=== PATIENT | female | born 1955 | race Caucasian/White ===

== ENCOUNTER 2020-06-27 22:49 | Emergency (ER) | payer MEDICARE, SELFPAY ==
[2020-06-27 22:52] VITALS: BP 142/76; PULSE 102; RESP 34; TEMP 36.9; O2SAT 96; BMI 20.9
== END 2020-06-28 00:01 | disposition left against medical advice (07) ==
PROVIDERS: Emergency Provider Emergency Medicine; PCP Internal Medicine Geriatric Medicine
DX: R06.02 Shortness of breath (principal); R00.2 Palpitations
CPT/HCPCS: 99281; 99282

== ENCOUNTER 2020-10-04 22:30 | Emergency (ER) | payer MEDICARE, SELFPAY ==
--- NOTE | ~2020-10-04 | CT_ITS ---
EXAMINATION: CT ABDOMEN AND PELVIS WITH CONTRAST CLINICAL INFORMATION: Lower abdominal/suprapubic pain COMPARISON: 06/30/2019 TECHNIQUE: Multidetector volumetric images were obtained from the superior aspect of the liver through the pubic symphysis following administration 85 mL of Omnipaque 350 intravenous contrast. Sagittal and coronal reformatted images were obtained on the technologist's workstation. Oral contrast: No This CT examination was performed using dose optimization techniques as appropriate, variously including the following: *Automated exposure control *Adjustment of mA and/or kV according to patient size (this includes techniques or standardized protocols for targeted exams where dose is matched to indication/reason for exam; i.e. extremities or head) *Use of iterative reconstruction technique DLP: 486 mGy-cm FINDINGS: LUNG BASES: The visualized lung bases demonstrate emphysema. LIVER, GALLBLADDER, AND BILIARY TREE: The liver is normal in size, shape, and attenuation. Tiny hypodensity in the lateral right lobe favors a cyst. No biliary ductal dilatation is present. Numerous gallstones are present. PANCREAS: Partial fatty atrophy noted. SPLEEN: Unremarkable. ADRENAL GLANDS: Unremarkable. KIDNEYS AND URETERS: The kidneys are normal in size, shape, and attenuation. Small hypodensity in the upper right kidney favors a cyst. No hydronephrosis, hydroureter, or calculi seen. No perinephric stranding. BLADDER: Unremarkable. GASTROINTESTINAL TRACT: There is colonic diverticulosis without diverticulitis. No evidence of bowel obstruction. Small bowel suture line noted in the mid abdomen. No free fluid or free air is seen. ABDOMINAL WALL: No significant hernia is appreciated. LYMPH NODES: Normal. VASCULAR: Scattered atherosclerotic calcifications are present. PELVIC VISCERA: Unremarkable. OSSEOUS STRUCTURES: No acute findings. CT/CT abdomen pelvis w con IMPRESSION: 1. Cholelithiasis. If there is clinical concern for cholecystitis, this would be better assessed with ultrasound. 2. Colonic diverticulosis without diverticulitis.
[2020-10-04 22:40] VITALS: BP 148/60; PULSE 86; O2SAT 92
[2020-10-04 22:41] VITALS: BP 138/59; PULSE 93; RESP 22; TEMP 36.8; O2SAT 93; BMI 25.4
--- NOTE | 2020-10-04 23:54 | ED_ITS ---
HPI - Abdominal Pain General Chief Complaint: Abdominal Pain Stated Complaint: Abd Pain Time Seen by Provider: 10/04/20 23:54 Source: patient Mode of arrival: EMS History of Present Illness HPI narrative: 65-year-old female with history of COPD presents via ambulance for right lower abdominal pain that radiates towards the midline that is sharp/throbbing in nature and has led to painful urination for 4 days. She denies any associated fevers but states she has had some chills as well as nausea but denies any vomiting or diarrhea. Related Data Home Medications Medication Instructions Recorded Confirmed albuterol sulfate 1 vial INHALATION 6XD 10/04/20 10/04/20 [id number]-[id number]-yeuyvjkt 1 - 2 tab PO Q12H PRN 10/04/20 10/04/20 50 mg-325 mg-40 mg tablet diltiazem HCl 60 mg 2 cap PO BID 10/04/20 10/04/20 capsule,extended release 12 hr fluticasone 250 mcg-salmeterol 50 1 puff INHALATION Q12H 10/04/20 10/04/20 mcg/dose blistr powdr for inhalation (Wixela Inhub) ipratropium bromide 17 2 puff INHALATION QID 10/04/20 10/04/20 mcg/actuation HFA aerosol inhaler (Atrovent HFA) lorazepam 2 mg tablet 1 tab PO QID PRN 10/04/20 10/04/20 prednisone 50 mg tablet 1 tab PO DAILY 10/04/20 10/04/20 Allergies Allergy/AdvReac Type Severity Reaction Status Date / Time morphine [MORPHINE] Allergy Severe HIVES, Verified 10/04/20 22:39 high temp, nausea tetracycline [TETRACYCLINE] Allergy Severe VOMITING Verified 10/04/20 22:39 tramadol [TRAMADOL] Allergy Severe SWEATING, Verified 10/04/20 22:39 VOMITING, vomiting amoxicillin [From AUGMENTIN] AdvReac Severe CONSTIPATIO Verified 10/04/20 22:39 N clavulanic acid AdvReac Severe CONSTIPATIO Verified 10/04/20 22:39 [From AUGMENTIN] N codeine [CODEINE] AdvReac Severe NAUSEA Verified 10/04/20 22:39 levofloxacin [From LEVAQUIN] AdvReac Severe CONSTIPATIO Verified 10/04/20 22:39 N Sulfa(Sulfonamide Allergy Unknown Unknown Uncoded 10/04/20 22:39 Antibiotics) Review of Systems Review of Systems Pertinent positives and negatives as stated in HPI 10 point review of systems otherwise negative. Physical Exam Vital Signs: Vital Signs: Last Vital Signs Temp 98.3 F 10/04/20 22:41 Pulse 93 10/04/20 22:41 Resp 22 H 10/04/20 22:41 BP 138/59 L 10/04/20 22:41 Pulse Ox 93 10/04/20 22:41 Oxygen Flow Rate 4 10/04/20 22:41 Body Mass Index 25.4 VITAL SIGNS: Reviewed. GENERAL: Well developed, well nourished, in no acute distress. HEAD: Normocephalic/atraumatic EYES: PERRLA, EOMI NOSE: Nares patent bilateral, nasal cannula in place OROPHARYNX: no oral lesions noted, posterior pharynx clear LUNGS: Few, scattered rhonchi, good inspiratory effort, mild tachypnea SpO2<93> on 3L nasal cannula at baseline CARDIOVASCULAR: Regular rate and rhythm without noted murmurs, no JVD or lower extremity edema. ABDOMEN: Soft, non-tender, non-distended with bowel sounds. SKIN: Inspection of the skin reveals no rashes NEUROLOGIC: Alert and oriented x 4. Course Course Course Narrative: 65-year-old female with history and clinical presentation suggestive of UTI, renal colic, or hernia. Review of all investigations negative for acute findings to better explain patient's discomfort other than noted stool load that is closely associated with the location of the bladder which may be contributing to patient's symptoms. She will be encouraged to take MiraLax and follow-up with her primary care provider. MDM - Abdominal Pain Lab Data Result diagrams: 10/04/20 23:50 10/04/20 23:50 Labs: Lab Results 10/04/20 10/04/20 10/04/20 Range/Units 23:50 23:50 23:50 WBC 9.6 (4.8-10.8) X10*3/uL RBC 4.19 L (4.20-5.50) X10*6/uL Hgb 12.1 (12.0-16.0) g/dl Hct 38.1 (37-47) % MCV 90.9 (80-98) fL MCH 28.9 (27.0-33.0) pg MCHC 31.8 (31.0-35.0) g/dl RDW 13.4 (11.0-16.0) % Plt Count 296 (160-400) X10*3/uL MPV 8.9 L (9.4-12.3) fL Immature Gran % (Auto) 0.3 (0.0-0.4) % Neut % (Auto) 71.7 (45-73) % Lymph % (Auto) 19.4 L (20-40) % [place] % (Auto) 6.4 (2-11) % Eos % (Auto) 1.7 (0-4) % Baso % (Auto) 0.5 (0-2) % Lymph # (Auto) 1.9 (1.2-4.9) X10*3/uL [place] # (Auto) 0.6 (0.1-1.2) X10*3/uL Eos # (Auto) 0.2 (0.0-0.4) X10*3/uL Baso # (Auto) 0.1 (0.0-0.2) X10*3/uL Abs Immat Gran (auto) 0.03 (0.00-0.03) X10*3/uL Absolute Neuts (auto) 6.9 (2.0-8.3) X10*3/uL Absolute Nucleated RBC 0.000 (0.0-0.012) X10*3/uL Nucleated RBC % (auto) 0.0 (0.0-0.2) /100WBC Sodium 140 (135-145) mmol/L Potassium 4.1 (3.3-5.1) mmol/L Chloride 97 (96-108) mmol/L Carbon Dioxide 34 H (22-29) mmol/L Anion Gap 13 (12-20) BUN 12 (9-16) mg/dL Creatinine 0.69 (0.5-1.4) mg/dL Estim Creat Clear Calc 60.7 Estimated GFR > 60 Random Glucose 99 (60-115) mg/dL Calcium 10.1 (8.4-10.2) mg/dL Total Bilirubin 0.2 (0.0-1.0) mg/dL AST 15 (5-31) U/L ALT 22 (0-31) U/L Alkaline Phosphatase 74 (39-117) U/L Total Protein 7.6 (6.5-8.0) g/dL Albumin 4.3 (3.5-5.0) g/dL Lipase 10 (8-78) U/L Urine Color STRAW Urine Appearance CLEAR Urine pH 6.0 (5.0-8.0) Ur Specific [place] <= 1.005 (1.005-1.025) Urine Protein NEG (NEG-TRACE) MG/DL Urine Glucose (UA) NEG (NEG) MG/DL Urine Ketones NEG (NEG) MG/DL Urine Blood NEG (NEG) Urine Nitrite NEG (NEG) Ur Leukocyte Esterase NEG (NEG) Discharge Plan Discharge Clinical Impression: Abdominal discomfort, Constipation Patient Disposition: Home, Self-Care Instructions: Constipation (ED), Fleet Enema (ED), High Fiber Diet (ED), Polyethylene Glycol 3350 (By mouth) Additional Instructions: 1. Resume all home medications as prescribed. 2. Recommend ifak-gkt-vbyaiuf MiraLax, daily, to facilitate soft stool. 3. Follow-up with your primary care provider in the next 2-3 days for re- evaluation and further outpatient management. Return to the ER for acute worsening of symptoms. Prescriptions: No Action fluticasone propion-salmeterol [Wixela Inhub] 250-50 mcg/dose blister with device 1 puff inhalation Q12H RF: 0 albuterol sulfate 2.5 mg /3 mL (0.083 %) solution for nebulization 1 vial inhalation 6XD RF: 0 dczneqnelp-hvwuhhgewlgao-twtt 50-325-40 mg tablet 1 - 2 tab PO Q12H PRN (Reason: Headache) RF: 0 lorazepam 2 mg tablet 1 tab PO QID PRN (Reason: anxiety) RF: 0 prednisone 50 mg tablet 1 tab PO DAILY RF: 0 diltiazem HCl 60 mg capsule,extended release 12 hr 2 cap PO BID RF: 0 Atrovent HFA 17 mcg/actuation HFA aerosol inhaler 2 puff inhalation QID RF: 0 Referrals: Name,MD Mickey [Primary Care Provider] - 2 days PMF Past Medical History Source: nursing notes reviewed Medical History Anxiety Asthma Bronchitis COPD (chronic obstructive pulmonary disease) Emphysema lung Hypertension Social History Social History Alcohol intake: current Alcohol intake frequency: 0-2 drinks per day Patient Tobacco Use Status: Current everyday Tobacco user Smoked in Last 30 Days: Yes Use of substances other than those prescribed or required for medical reasons: Refusing to respond Advance Directives: No Advance Directives Information Provided: No Patient : No
[2020-10-04 23:55] LABS: MANUAL DIFF FLAG NO
[2020-10-04 23:57] LABS: Basophils Absolute Auto 0.1 X10*3/uL (0.0-0.2); Basophils Percent Auto 0.5 % (0-2); Eosinophils Absolute Auto 0.2 X10*3/uL (0.0-0.4); Eosinophils Percent Auto 1.7 % (0-4); Hematocrit 38.1 % (37-47); Hemoglobin 12.1 g/dl (12.0-16.0); Imm Gran Abs Auto 0.03 X10*3/uL (0.00-0.03); Imm Gran Pct Auto 0.3 % (0.0-0.4); Lymphocytes Absolute Auto 1.9 X10*3/uL (1.2-4.9); Lymphocytes Percent Auto 19.4 % (20-40); Mean Corpuscular HGB Conc 31.8 g/dl (31.0-35.0); Mean Corpuscular Hemoglobin 28.9 pg (27.0-33.0); Mean Corpuscular Volume 90.9 fL (80-98); Mean Platelet Volume 8.9 fL (9.4-12.3); Monocytes Absolute Auto 0.6 X10*3/uL (0.1-1.2); Monocytes Percent Auto 6.4 % (2-11); Neutrophils Absolute Auto 6.9 X10*3/uL (2.0-8.3); Neutrophils Percent Auto 71.7 % (45-73); Platelet Count 296 X10*3/uL (160-400); Red Blood Count 4.19 X10*6/uL (4.20-5.50); Red Cell Distribution Width 13.4 % (11.0-16.0); White Blood Count 9.6 X10*3/uL (4.8-10.8)
[2020-10-04 23:58] LABS: Glucose Urine UA NEG (NEG); Leukocyte Esterase Urine NEG (NEG); Nitrite Urine NEG (NEG); Specific Gravity - Urine <= 1.005 (1.005-1.025); Urine Blood NEG (NEG); Urine Ketones NEG (NEG); Urine Protein NEG (NEG-TRACE)
[2020-10-04 23:59] LABS: Appearance Urine CLEAR; Color Urine STRAW; UACC Culture Trigger NO
[2020-10-05 00:34] LABS: Anion Gap 13 (12-20); Blood Urea Nitrogen 12 mg/dL (9-16); Carbon Dioxide 34 mmol/L (22-29); Chloride 97 mmol/L (96-108); Creatinine Clr Calc Pharmacy 60.7; Potassium 4.1 mmol/L (3.3-5.1); Sodium 140 mmol/L (135-145)
[2020-10-05 00:35] LABS: Alanine Aminotransferase 22 U/L (0-31); Albumin Level 4.3 g/dL (3.5-5.0); Alkaline Phosphatase 74 U/L (39-117); Aspartate Amino Transferase 15 U/L (5-31); Bilirubin Total 0.2 mg/dL (0.0-1.0); Calcium 10.1 mg/dL (8.4-10.2); Estimated Glomerular Filt Rate > 60; Glucose Random 99 mg/dL (60-115); Lipase 10 U/L (8-78); Total Protein 7.6 g/dL (6.5-8.0)
[2020-10-05] MEDS: Ketorolac Tromethamine 15 MG/ML VIAL IVPUSH (00:36)
[2020-10-05] MEDS: Acetaminophen 325 MG TABLET 975 MG PO (00:37)
[2020-10-05] MEDS: iohexoL 350 MG/ML 100 ML INFUS..BTL 85 ML IV (01:35)
[2020-10-05] MEDS: Butalb/Acetamin/Caff 50/325/40 TABLET 1 TAB PO (02:37)
--- NOTE | 2020-10-05 04:41 | PC.NURSE ---
pt d/c via [facility] transport due to not having home 02 with her.
== END 2020-10-05 04:42 | disposition home or self-care (01) ==
PROVIDERS: Emergency Provider Student in an Organized Health Care Education/Training Program; PCP Internal Medicine Geriatric Medicine
DX: K59.00 Constipation, unspecified (principal); R10.31 Right lower quadrant pain; R30.0 Dysuria; R50.9 Fever, unspecified; Z79.899 Other long term (current) drug therapy
CPT/HCPCS: 36415; 74177; 80053; 81003; 83690; 85025; 96365; 96375; 99284; J1885; Q9967

== ENCOUNTER 2021-07-08 14:31 | Inpatient (IN) | payer MEDICARE, SELFPAY ==
[2021-07-08] VITALS (9 sets, daily range): BP systolic 141–176; BP diastolic 78–84; PULSE 101–116; RESP 17–26; TEMP 36.7; O2SAT 95–109; BMI 30.5
--- NOTE | ~2021-07-08 | CT_ITS ---
EXAMINATION: CT ABDOMEN AND PELVIS WITHOUT CONTRAST CLINICAL INFORMATION: Urinary hesitancy. Right upper quadrant/right lower quadrant/suprapubic tenderness to palpation. COMPARISON: 10/05/2020 TECHNIQUE: Multidetector volumetric imaging was performed from the superior aspect of the liver through the pubic symphysis. Sagittal and coronal reformatted images were obtained on the technologist's workstation. This CT examination was performed using dose optimization techniques as appropriate, variously including the following: *Automated exposure control *Adjustment of mA and/or kV according to patient size (this includes techniques or standardized protocols for targeted exams where dose is matched to indication/reason for exam; i.e. extremities or head) *Use of iterative reconstruction technique DLP: 445 mGy-cm FINDINGS: LUNG BASES: Severe emphysema noted. The visualized cardiac structures are unremarkable. LIVER, GALLBLADDER, AND BILIARY TREE: The liver is normal in size, shape, and attenuation. No focal hepatic lesion or biliary ductal dilatation is present. Stone filled gallbladder. No wall thickening or pericholecystic fluid. PANCREAS: Mild atrophy with no focal pancreatic abnormality. SPLEEN: Unremarkable. ADRENAL GLANDS: Unremarkable. KIDNEYS AND URETERS: The kidneys are normal in size, shape, and attenuation. No hydronephrosis, hydroureter, or calculi seen. No perinephric stranding. Simple cyst at the upper pole of the right kidney. No follow-up imaging recommended. BLADDER: Unremarkable. GASTROINTESTINAL TRACT: The stomach is unremarkable. Normal caliber small bowel. There is no obstruction. No colonic wall thickening or inflammatory change. The appendix is not definitively visualized. No inflammatory changes at the region of the cecum to suggest acute appendicitis. Colonic diverticulosis present without diverticulitis. No free air or free fluid. ABDOMINAL WALL: No significant hernia is appreciated. LYMPH NODES: Normal. VASCULAR: Normal caliber aorta with moderate atherosclerotic calcification. PELVIC VISCERA: The uterus appears unremarkable. 2.7 cm cyst in the right adnexa. Adjacent smaller cystic structure. These are unchanged from prior CT. OSSEOUS STRUCTURES: No acute or suspicious osseous abnormality. Mild degenerative changes in the spine. CT/CT abdomen pelvis wo con IMPRESSION: No acute findings in the abdomen or pelvis. No hydronephrosis or nephrolithiasis. Cholelithiasis without evidence for acute cholecystitis. Colonic diverticulosis without diverticulitis. Cystic structures in the right adnexa without change from prior. Fleischner guidelines were followed.
--- NOTE | ~2021-07-08 | CT_ITS ---
EXAMINATION: CT HEAD WITHOUT CONTRAST CLINICAL INFORMATION: Dizziness. COMPARISON: CT brain 07/08/2015 TECHNIQUE: Contiguous axial imaging was performed from the skull base to vertex without intravenous administration of contrast. This CT examination was performed using dose optimization techniques as appropriate, variously including the following: *Automated exposure control *Adjustment of mA and/or kV according to patient size (this includes techniques or standardized protocols for targeted exams where dose is matched to indication/reason for exam; i.e. extremities or head) *Use of iterative reconstruction technique DLP: 646 mGy-cm FINDINGS: There is no evidence of acute intracranial hemorrhage or territorial infarction. No abnormal mass effect or midline shift is seen. Trent to white matter differentiation is well preserved. No extra-axial fluid collections are identified. Lateral ventricles are symmetrical in size and configuration but enlarged. There is diffuse periventricular hypodensity in both cerebral hemispheres suggestive of chronic small vessel ischemic changes. Bone windows reveal no calvarial abnormality. The paranasal sinuses and mastoid air cells are well-aerated. CT/CT head/brain wo con IMPRESSION: No acute intracranial process seen. Mild cerebral volume loss with chronic small vessel ischemic changes.
--- NOTE | ~2021-07-08 | XR_ITS ---
EXAMINATION: XR CHEST CLINICAL INFORMATION: Short of breath COMPARISON: 10/03/2019 TECHNIQUE: Frontal view of the chest was obtained. FINDINGS: Cardiac leads overlie the chest. The lungs are well expanded. Blunting at the left costophrenic angle appears chronic, likely associated with a prominent fat pad. No definite pleural effusion. No consolidation. No pneumothorax. No edema. The cardiac mediastinal silhouette is unchanged, with a calcified aorta. XR/XR chest 1V IMPRESSION: Chronic blunting at the left costophrenic angle likely associated with a prominent fat pad. No acute pulmonary finding.
--- NOTE | 2021-07-08 14:53 | ECG_ITS ---
Test Reason : SOB Blood Pressure : / mmHG Vent. Rate : 100 BPM Atrial Rate : 100 BPM P-R Int : 138 ms QRS Dur : 084 ms QT Int : 334 ms P-R-T Axes : 077 046 068 degrees QTc Int : 430 ms Poor data quality, interpretation may be adversely affected Normal sinus rhythm Normal ECG When compared with ECG of 03-OCT-2019 09:53, Minimal criteria for Inferior infarct are no longer Present Referred By: Ilene Sheppard Electronically Signed By:PATEL WALSH MD
--- NOTE | 2021-07-08 14:57 | ED.SOB ---
HPI - SOB/Dyspnea General Chief Complaint: Dyspnea <GABRIELA Fu Last Filed: 07/08/21 21:01> Stated Complaint: SOB,UNABLE TO URINATE PER EMS <GABRIELA Fu Last Filed: 07/08/21 21:01> Time Seen by Provider: 07/08/21 14:37 <GABRIELA Fu Last Filed: 07/08/21 21:01> Source: patient and EMS <GABRIELA Fu Last Filed: 07/08/21 21:01> Mode of arrival: EMS <GABRIELA Fu Last Filed: 07/08/21 21:01> History of Present Illness HPI Narrative: 66-year-old female with a past medical history of asthma, bronchitis, HTN, COPD chronically on 5L NC, brought in by ambulance for SOB x2 days, chest tightness, and dysuria with urinary hesitancy x 3-4 days. Patient received two updrafts by EMS [employer]. Patient states she is unable to urinate secondary to pain. Denies fever, chills, cough, nausea, vomiting, abdominal pain, hematuria, flank pain <GABRIELA Fu Last Filed: 07/08/21 21:01> MD elicited complaint: shortness of breath <GABRIELA Fu Last Filed: 07/08/21 21:01> Pertinent past history: COPD <GABRIELA Fu Last Filed: 07/08/21 21:01> Related Data Home Medications: Home Medications Medication Instructions Recorded Confirmed albuterol sulfate 1 vial INHALATION 6XD 10/04/20 07/08/21 [id number] 1 - 2 tab PO Q12H PRN 10/04/20 07/08/21 50 mg-325 mg-40 mg tablet acetaminophen 325 mg capsule 325 mg PO QID PRN 07/08/21 07/08/21 (Tylenol) diltiazem HCl 360 mg capsule,24 1 cap PO DAILY 07/08/21 07/08/21 hr,extended release ipratropium bromide 17 1 puff INHALATION QID PRN 07/08/21 07/08/21 mcg/actuation HFA aerosol inhaler (Atrovent HFA) lorazepam 2 mg tablet 1 tab PO Q6H PRN 07/08/21 07/08/21 <GABRIELA Fu Last Filed: 07/08/21 21:01> Allergies/Adverse Reactions: Allergies Allergy/AdvReac Type Severity Reaction Status Date / Time morphine [MORPHINE] Allergy Severe HIVES, Verified 10/04/20 22:39 high temp, nausea tetracycline [TETRACYCLINE] Allergy Severe VOMITING Verified 10/04/20 22:39 tramadol [TRAMADOL] Allergy Severe SWEATING, Verified 10/04/20 22:39 VOMITING, vomiting amoxicillin [From AUGMENTIN] AdvReac Severe CONSTIPATIO Verified 10/04/20 22:39 N clavulanic acid AdvReac Severe CONSTIPATIO Verified 10/04/20 22:39 [From AUGMENTIN] N codeine [CODEINE] AdvReac Severe NAUSEA Verified 10/04/20 22:39 levofloxacin [From LEVAQUIN] AdvReac Severe CONSTIPATIO Verified 10/04/20 22:39 N Sulfa(Sulfonamide Allergy Unknown Unknown Uncoded 10/04/20 22:39 Antibiotics) <GABRIELA Fu Last Filed: 07/08/21 21:01> Review of Systems Review of Systems: Constitutional: No Fever, No Chills, No Fatigue, No Malaise ENT/Mouth: No Ear Pain, No Nasal Congestion, No Hoarseness, No sore throat, No Rhinorrhea, No Swallowing Difficulty Eyes: No Eye Pain, No Swelling, No Redness,No Discharge Cardiovascular: + Chest tightness, + SOB, No Dyspnea on Exertion, No Orthopnea, No Edema, No Palpitations Respiratory: No Cough, No Sputum, + Wheezing, No Smoke Exposure, +Dyspnea Gastrointestinal: No Nausea, No Vomiting, No Diarrhea, No Constipation, No Abdominal pain, No Hematochezia, No Melena Genitourinary: No irregular bleeding, + Dysuria, No Urinary Frequency, No Hematuria, No Urgency, No Flank Pain, No Urinary Flow Changes, + Hesitancy Musculoskeletal: No joint pain, No Myalgias, No Joint Swelling Skin: No Skin Lesions, No rash Neuro: No Weakness, No Dizziness, No Headache <GABRIELA Fu Last Filed: 07/08/21 21:01> Yes all other systems are reviewed and are negative <GABRIELA Fu Last Filed: 07/08/21 21:01> FOR[facility]LY [facility] Past Medical History Attestation statement: The following information was validated with the patient. <GABRIELA Fu - Last Filed: 07/08/21 21:01> Medical History: Medical History Anxiety Asthma Bronchitis COPD (chronic obstructive pulmonary disease) Emphysema lung Hypertension <GABRIELA Fu - Last Filed: 07/08/21 21:01> Social History Social History: Social History Alcohol intake: current Alcohol intake frequency: 0-2 drinks per day Patient Tobacco Use Status: Current everyday Tobacco user Advance Directives: Yes Advance Directives Information Provided: No Advance Directives on File: No <GABRIELA Fu - Last Filed: 07/08/21 21:01> Physical Exam Vital Signs: Vital Signs: Last Vital Signs Temp 98.1 F 07/08/21 21:10 Pulse 111 H 07/09/21 01:56 Resp 24 H 07/09/21 01:56 BP 162/78 H 07/09/21 01:56 Pulse Ox 96 07/09/21 01:56 Oxygen Flow Rate 5 07/08/21 14:38 BMI result Body Mass Index 30.5 <GABRIELA Fu - Last Filed: 07/08/21 21:01> Vital Signs: Last Vital Signs Temp 98.1 F 07/08/21 21:10 Pulse 111 H 07/09/21 01:56 Resp 24 H 07/09/21 01:56 BP 162/78 H 07/09/21 01:56 Pulse Ox 96 07/09/21 01:56 Oxygen Flow Rate 5 07/08/21 14:38 BMI result Body Mass Index 30.5 <GABRIELA Hagan - Last Filed: 07/08/21 22:37> Const: General: cooperative, healthy appearing, no acute distress, alert and awake <GABRIELA Fu - Last Filed: 07/08/21 21:01> Orientation/consciousness: patient oriented x3 <GABRIELA Fu - Last Filed: 07/08/21 21:01> Limitations: no limitations <Ilene Sheppard PA - Last Filed: 07/08/21 21:01> HEENT: Head: Yes normal to inspection and Yes atraumatic <Ilene Sheppard PA - Last Filed: 07/08/21 21:01> Ears: hearing grossly normal bilaterally <Ilene Sheppard PA - Last Filed: 07/08/21 21:01> General nose exam: Normal external nose present <Ilene Sheppard PA - Last Filed: 07/08/21 21:01> Face and sinus: Yes normal facial exam <Ilene Sheppard PA - Last Filed: 07/08/21 21:01> Eyes: General: appearance normal, both eyes and all related structures <Ilene Sheppard PA - Last Filed: 07/08/21 21:01> EOM: EOMs intact bilaterally <Ilene Sheppard PA - Last Filed: 07/08/21 21:01> Neck: Neck: Yes normal visual inspection and Yes no meningeal signs <Ilene Sheppard PA - Last Filed: 07/08/21 21:01> Resp: Effort & Inspection: normal respiratory effort and no respiratory distress <Ilene Sheppard PA - Last Filed: 07/08/21 21:01> Auscultation: wheezes expiratory wheezes and diminished lung sounds diffuse <Ilene Sheppard PA - Last Filed: 07/08/21 21:01> Cardio: Rate: regular rate and tachycardic <Ilene Sheppard PA - Last Filed: 07/08/21 21:01> Heart sounds: S1 normal heart sound present and S2 normal heart sound present <Ilene Sheppard PA - Last Filed: 07/08/21 21:01> GI: Inspection: Yes normal to inspection <Ilene Sheppard PA - Last Filed: 07/08/21 21:01> Palpation (GI): Soft to palpation, Tenderness to palpation present (GI) in the RLQ and in the RUQ; Negative for with no rebound tenderness, no guarding and not rigid <Ilene Sheppard PA - Last Filed: 07/08/21 21:01> : General: Yes no CVA tenderness <Ilene Sheppard PA - Last Filed: 07/08/21 21:01> Back/Spine/Pelvis: Back: no CVA tenderness <Ilene Sheppard PA - Last Filed: 07/08/21 21:01> Skin: Rashes: no rashes <Ilene Sheppard PA - Last Filed: 07/08/21 21:01> Wounds: no wounds <Ilene Sheppard PA - Last Filed: 07/08/21 21:01> Neuro: General: patient oriented x3, tone normal and no meningeal signs <Ilene Sheppard PA - Last Filed: 07/08/21 21:01> Gait exam (Neuro): Normal gait present <Ilene Sheppard PA - Last Filed: 07/08/21 21:01> Extrem: General: Yes normal to inspection, Yes no pedal edema and Yes no calf tenderness <Ilene Sheppard PA - Last Filed: 07/08/21 21:01> Course Course Course Narrative: -1626--leukocytosis of 14.7 > likely reactive, still low suspicion for severe sepsis at this time. Lactic and blood cultures ordered. Labs otherwise unremarkable. Troponin negative. -COVID-19 and influenza negative XR chest 1V IMPRESSION: Chronic blunting at the left costophrenic angle likely associated with a prominent fat pad. No acute pulmonary finding. -Received records from [facility] patient was evaluated on 06/30 and discharged with a diagnosis of anxiety & benzodiazepine dependence -Patient was also evaluated on 07/02 as she ran out of her Ativan and worried about withdrawal. -1633--on re-evaluation patient reports feeling room spinning dizziness s/p CT scan. Lungs with better air improvement, still shallow. Additional DuoNeb ordered. -bladder scan with 45mLs CT abdomen pelvis wo con IMPRESSION: No acute findings in the abdomen or pelvis. No hydronephrosis or nephrolithiasis. Cholelithiasis without evidence for acute cholecystitis. Colonic diverticulosis without diverticulitis. Cystic structures in the right adnexa without change from prior. Fleischner guidelines were followed. -1753-- lactic acid negative. Patient does not meet severe sepsis criteria -2007--UA not infected. No evidence of infection. Tachypnea likely from anxiety rather than severe sepsis. Lungs with shallow breath sounds > IV Azithromycin ordered for inflammatory properties. Patient continually asking for Ativan. On re-evaluation patient reports continued room spinning dizziness, worse with position changes, resolves when lying still. No nystagmus appreciated. Will give IV Benadryl and IV Ativan and obtain head CT plan is for admission. Patient reports she is unable to ambulate due to symptoms >2100--patient accepted by hospitalist for admission. GABRIELA Pal will follow-up head CT <GABRIELA Fu - Last Filed: 07/08/21 21:01> Reevaluation(s) Reevaluation #1: Head CT negative. Patient will be admitted to the hospitalist team <GABRIELA Hagan - Last Filed: 07/08/21 22:37> Time: 22:37 <GABRIELA Hagan - Last Filed: 07/08/21 22:37> MDM - SOB/Dyspnea MDM Narrative Medical decision making narrative: 66-year-old female with a past medical history of asthma, bronchitis, HTN, COPD chronically on 5L NC, brought in by ambulance for SOB x2 days, chest tightness, and dysuria with urinary hesitancy x 3-4 days. On exam tachycardic likely from albuterol given [employer], lungs with diminished breath sounds throughout & exp wheeze, abdomen soft with RUQ/RLQ tenderness, no rebound or guarding. No CVA tenderness. Concern for COPD exacerbation vs pneumonia vs UTI vs urinary retention vs appendicitis or cholecystitis. Lower concern for diverticulitis, ACS/PE Low concern for severe sepsis at this time Plan: EKG, labs, CXR, UA, bladder scan, DuoNeb, Solu-Medrol, magnesium, re-evaluate <GABRIELA Fu - Last Filed: 07/08/21 21:01> Differential Diagnosis Differential diagnosis: Likely acute exacerbation of chronic obstructive airways disease, congestive heart failure, pneumonia and pleural effusion <GABRIELA Fu - Last Filed: 07/08/21 21:01> Medical Records Attestation: I reviewed the patient's medical records. <GABRIELA Fu Last Filed: 07/08/21 21:01> Lab Data Attestation: I reviewed the patient's lab results. <GABRIELA Fu - Last Filed: 07/08/21 21:01> Result diagrams: : 07/08/21 15:24 07/08/21 15:24 <GABRIELA Fu - Last Filed: 07/08/21 21:01> Labs: Lab Results 07/08/21 07/08/21 07/08/21 Range/Units 15:21 15:21 15:24 WBC 14.7 H (4.8-10.8) X10*3/uL RBC 4.51 (4.20-5.50) X10*6/uL Hgb 12.8 (12.0-16.0) g/dl Hct 39.7 (37.0-47.0) % MCV 88.0 (80.0-98.0) fL MCH 28.4 (27.0-33.0) pg MCHC 32.2 (31.0-35.0) g/dl RDW 13.5 (11.0-16.0) % Plt Count 359 (160-400) X10*3/uL MPV 9.3 L (9.4-12.3) fL Immature Gran % (Auto) 0.3 (0.0-0.4) % Neut % (Auto) 83.9 H (45-73) % Lymph % (Auto) 9.3 L (20-40) % [place] % (Auto) 6.1 (2-11) % Eos % (Auto) 0.2 (0-4) % Baso % (Auto) 0.2 (0-2) % Lymph # (Auto) 1.4 (1.2-4.9) X10*3/uL [place] # (Auto) 0.9 (0.1-1.2) X10*3/uL Eos # (Auto) 0.0 (0.0-0.4) X10*3/uL Baso # (Auto) 0.0 (0.0-0.2) X10*3/uL Abs Immat Gran (auto) 0.05 H (0.00-0.03) X10*3/uL Absolute Neuts (auto) 12.3 H (2.0-8.3) x10*3/uL Absolute Nucleated RBC 0.000 (0.0-0.012) X10*3/uL Nucleated RBC % (auto) 0.0 (0.0-0.2) /100WBC Sodium (135-145) mmol/L Potassium (3.3-5.1) mmol/L Chloride (96-108) mmol/L Carbon Dioxide (22-29) mmol/L Anion Gap (12-20) BUN (9-16) mg/dL Creatinine (0.5-1.4) mg/dL Estim Creat Clear Calc Estimated GFR Random Glucose (60-115) mg/dL Lactic Acid (0.5-2.0) mmol/L Calcium (8.4-10.2) mg/dL Magnesium (1.6-2.6) mg/dL Total Bilirubin (0.0-1.0) mg/dL Direct Bilirubin (0.0-0.5) mg/dL AST (5-31) U/L ALT (0-31) U/L Alkaline Phosphatase (39-117) U/L Troponin I High Sens (<3.5-17.0) ng/L B-Natriuretic Peptide (<100) pg/mL Total Protein (6.5-8.0) g/dL Albumin (3.5-5.0) g/dL Lipase (8-78) U/L Urine Color Urine Appearance Urine pH (5.0-8.0) Ur Specific Jesse (1.005-1.025) Urine Protein (NEG-TRACE) MG/DL Urine Glucose (UA) (NEG) MG/DL Urine Ketones (NEG) MG/DL Urine Blood (NEG) Urine Nitrite (NEG) Ur Leukocyte Esterase (NEG) Urine RBC (0) /HPF Urine WBC (0-4) /HPF Ur Squamous Epith Cells /LPF Urine Bacteria /LPF Urine Mucus /LPF COVID-19 (SEAN) Negative (Negative) COVID-19 Clin Com See Note Influenza Type A (TAMIKO) Negative (Negative) Influenza Type B (TAMIKO) Negative (Negative) Influenza A & B Note See Note 07/08/21 07/08/21 07/08/21 Range/Units 15:24 15:24 15:24 WBC (4.8-10.8) X10*3/uL RBC (4.20-5.50) X10*6/uL Hgb (12.0-16.0) g/dl Hct (37.0-47.0) % MCV (80.0-98.0) fL MCH (27.0-33.0) pg MCHC (31.0-35.0) g/dl RDW (11.0-16.0) % Plt Count (160-400) X10*3/uL MPV (9.4-12.3) fL Immature Gran % (Auto) (0.0-0.4) % Neut % (Auto) (45-73) % Lymph % (Auto) (20-40) % [place] % (Auto) (2-11) % Eos % (Auto) (0-4) % Baso % (Auto) (0-2) % Lymph # (Auto) (1.2-4.9) X10*3/uL [place] # (Auto) (0.1-1.2) X10*3/uL Eos # (Auto) (0.0-0.4) X10*3/uL Baso # (Auto) (0.0-0.2) X10*3/uL Abs Immat Gran (auto) (0.00-0.03) X10*3/uL Absolute Neuts (auto) (2.0-8.3) x10*3/uL Absolute Nucleated RBC (0.0-0.012) X10*3/uL Nucleated RBC % (auto) (0.0-0.2) /100WBC Sodium 136 (135-145) mmol/L Potassium 5.0 D (3.3-5.1) mmol/L Chloride 93 L (96-108) mmol/L Carbon Dioxide 30 H (22-29) mmol/L Anion Gap 18 (12-20) BUN 17 H (9-16) mg/dL Creatinine 0.72 (0.5-1.4) mg/dL Estim Creat Clear Calc 62.7 Estimated GFR > 60 Random Glucose 121 H (60-115) mg/dL Lactic Acid (0.5-2.0) mmol/L Calcium 10.3 H (8.4-10.2) mg/dL Magnesium 2.2 (1.6-2.6) mg/dL Total Bilirubin 0.4 (0.0-1.0) mg/dL Direct Bilirubin 0.2 (0.0-0.5) mg/dL AST 23 D (5-31) U/L ALT 16 (0-31) U/L Alkaline Phosphatase 97 D (39-117) U/L Troponin I High Sens 4.5 (<3.5-17.0) ng/L B-Natriuretic Peptide 27 (<100) pg/mL Total Protein 8.4 H (6.5-8.0) g/dL Albumin 4.5 (3.5-5.0) g/dL Lipase 10 (8-78) U/L Urine Color Urine Appearance Urine pH (5.0-8.0) Ur Specific Jesse (1.005-1.025) Urine Protein (NEG-TRACE) MG/DL Urine Glucose (UA) (NEG) MG/DL Urine Ketones (NEG) MG/DL Urine Blood (NEG) Urine Nitrite (NEG) Ur Leukocyte Esterase (NEG) Urine RBC (0) /HPF Urine WBC (0-4) /HPF Ur Squamous Epith Cells /LPF Urine Bacteria /LPF Urine Mucus /LPF COVID-19 (SEAN) (Negative) COVID-19 Clin Com Influenza Type A (TAMIKO) (Negative) Influenza Type B (TAMIKO) (Negative) Influenza A & B Note 07/08/21 07/08/21 Range/Units 16:52 19:42 WBC (4.8-10.8) X10*3/uL RBC (4.20-5.50) X10*6/uL Hgb (12.0-16.0) g/dl Hct (37.0-47.0) % MCV (80.0-98.0) fL MCH (27.0-33.0) pg MCHC (31.0-35.0) g/dl RDW (11.0-16.0) % Plt Count (160-400) X10*3/uL MPV (9.4-12.3) fL Immature Gran % (Auto) (0.0-0.4) % Neut % (Auto) (45-73) % Lymph % (Auto) (20-40) % [place] % (Auto) (2-11) % Eos % (Auto) (0-4) % Baso % (Auto) (0-2) % Lymph # (Auto) (1.2-4.9) X10*3/uL [place] # (Auto) (0.1-1.2) X10*3/uL Eos # (Auto) (0.0-0.4) X10*3/uL Baso # (Auto) (0.0-0.2) X10*3/uL Abs Immat Gran (auto) (0.00-0.03) X10*3/uL Absolute Neuts (auto) (2.0-8.3) x10*3/uL Absolute Nucleated RBC (0.0-0.012) X10*3/uL Nucleated RBC % (auto) (0.0-0.2) /100WBC Sodium (135-145) mmol/L Potassium (3.3-5.1) mmol/L Chloride (96-108) mmol/L Carbon Dioxide (22-29) mmol/L Anion Gap (12-20) BUN (9-16) mg/dL Creatinine (0.5-1.4) mg/dL Estim Creat Clear Calc Estimated GFR Random Glucose (60-115) mg/dL Lactic Acid 0.9 (0.5-2.0) mmol/L Calcium (8.4-10.2) mg/dL Magnesium (1.6-2.6) mg/dL Total Bilirubin (0.0-1.0) mg/dL Direct Bilirubin (0.0-0.5) mg/dL AST (5-31) U/L ALT (0-31) U/L Alkaline Phosphatase (39-117) U/L Troponin I High Sens (<3.5-17.0) ng/L B-Natriuretic Peptide (<100) pg/mL Total Protein (6.5-8.0) g/dL Albumin (3.5-5.0) g/dL Lipase (8-78) U/L Urine Color YELLOW Urine Appearance CLEAR Urine pH 6.0 (5.0-8.0) Ur Specific Jesse 1.025 (1.005-1.025) Urine Protein 2+ H (NEG-TRACE) MG/DL Urine Glucose (UA) NEG (NEG) MG/DL Urine Ketones 15 (NEG) MG/DL Urine Blood TRACE (NEG) Urine Nitrite NEG (NEG) Ur Leukocyte Esterase NEG (NEG) Urine RBC 1-4 (0) /HPF Urine WBC 0-2 (0-4) /HPF Ur Squamous Epith Cells NONE /LPF Urine Bacteria NONE /LPF Urine Mucus TRACE /LPF COVID-19 (SEAN) (Negative) COVID-19 Clin Com Influenza Type A (TAMIKO) (Negative) Influenza Type B (TAMIKO) (Negative) Influenza A & B Note <GABRIELA Fu - Last Filed: 07/08/21 21:01> Lab Results 07/08/21 07/08/21 07/08/21 Range/Units 15:21 15:21 15:24 WBC 14.7 H (4.8-10.8) X10*3/uL RBC 4.51 (4.20-5.50) X10*6/uL Hgb 12.8 (12.0-16.0) g/dl Hct 39.7 (37.0-47.0) % MCV 88.0 (80.0-98.0) fL MCH 28.4 (27.0-33.0) pg MCHC 32.2 (31.0-35.0) g/dl RDW 13.5 (11.0-16.0) % Plt Count 359 (160-400) X10*3/uL MPV 9.3 L (9.4-12.3) fL Immature Gran % (Auto) 0.3 (0.0-0.4) % Neut % (Auto) 83.9 H (45-73) % Lymph % (Auto) 9.3 L (20-40) % [place] % (Auto) 6.1 (2-11) % Eos % (Auto) 0.2 (0-4) % Baso % (Auto) 0.2 (0-2) % Lymph # (Auto) 1.4 (1.2-4.9) X10*3/uL [place] # (Auto) 0.9 (0.1-1.2) X10*3/uL Eos # (Auto) 0.0 (0.0-0.4) X10*3/uL Baso # (Auto) 0.0 (0.0-0.2) X10*3/uL Abs Immat Gran (auto) 0.05 H (0.00-0.03) X10*3/uL Absolute Neuts (auto) 12.3 H (2.0-8.3) x10*3/uL Absolute Nucleated RBC 0.000 (0.0-0.012) X10*3/uL Nucleated RBC % (auto) 0.0 (0.0-0.2) /100WBC Sodium (135-145) mmol/L Potassium (3.3-5.1) mmol/L Chloride (96-108) mmol/L Carbon Dioxide (22-29) mmol/L Anion Gap (12-20) BUN (9-16) mg/dL Creatinine (0.5-1.4) mg/dL Estim Creat Clear Calc Estimated GFR Random Glucose (60-115) mg/dL Lactic Acid (0.5-2.0) mmol/L Calcium (8.4-10.2) mg/dL Magnesium (1.6-2.6) mg/dL Total Bilirubin (0.0-1.0) mg/dL Direct Bilirubin (0.0-0.5) mg/dL AST (5-31) U/L ALT (0-31) U/L Alkaline Phosphatase (39-117) U/L Troponin I High Sens (<3.5-17.0) ng/L B-Natriuretic Peptide (<100) pg/mL Total Protein (6.5-8.0) g/dL Albumin (3.5-5.0) g/dL Lipase (8-78) U/L Urine Color Urine Appearance Urine pH (5.0-8.0) Ur Specific Jesse (1.005-1.025) Urine Protein (NEG-TRACE) MG/DL Urine Glucose (UA) (NEG) MG/DL Urine Ketones (NEG) MG/DL Urine Blood (NEG) Urine Nitrite (NEG) Ur Leukocyte Esterase (NEG) Urine RBC (0) /HPF Urine WBC (0-4) /HPF Ur Squamous Epith Cells /LPF Urine Bacteria /LPF Urine Mucus /LPF COVID-19 (SEAN) Negative (Negative) COVID-19 Clin Com See Note Influenza Type A (TAMIKO) Negative (Negative) Influenza Type B (TAMIKO) Negative (Negative) Influenza A & B Note See Note 07/08/21 07/08/21 07/08/21 Range/Units 15:24 15:24 15:24 WBC (4.8-10.8) X10*3/uL RBC (4.20-5.50) X10*6/uL Hgb (12.0-16.0) g/dl Hct (37.0-47.0) % MCV (80.0-98.0) fL MCH (27.0-33.0) pg MCHC (31.0-35.0) g/dl RDW (11.0-16.0) % Plt Count (160-400) X10*3/uL MPV (9.4-12.3) fL Immature Gran % (Auto) (0.0-0.4) % Neut % (Auto) (45-73) % Lymph % (Auto) (20-40) % [place] % (Auto) (2-11) % Eos % (Auto) (0-4) % Baso % (Auto) (0-2) % Lymph # (Auto) (1.2-4.9) X10*3/uL [place] # (Auto) (0.1-1.2) X10*3/uL Eos # (Auto) (0.0-0.4) X10*3/uL Baso # (Auto) (0.0-0.2) X10*3/uL Abs Immat Gran (auto) (0.00-0.03) X10*3/uL Absolute Neuts (auto) (2.0-8.3) x10*3/uL Absolute Nucleated RBC (0.0-0.012) X10*3/uL Nucleated RBC % (auto) (0.0-0.2) /100WBC Sodium 136 (135-145) mmol/L Potassium 5.0 D (3.3-5.1) mmol/L Chloride 93 L (96-108) mmol/L Carbon Dioxide 30 H (22-29) mmol/L Anion Gap 18 (12-20) BUN 17 H (9-16) mg/dL Creatinine 0.72 (0.5-1.4) mg/dL Estim Creat Clear Calc 62.7 Estimated GFR > 60 Random Glucose 121 H (60-115) mg/dL Lactic Acid (0.5-2.0) mmol/L Calcium 10.3 H (8.4-10.2) mg/dL Magnesium 2.2 (1.6-2.6) mg/dL Total Bilirubin 0.4 (0.0-1.0) mg/dL Direct Bilirubin 0.2 (0.0-0.5) mg/dL AST 23 D (5-31) U/L ALT 16 (0-31) U/L Alkaline Phosphatase 97 D (39-117) U/L Troponin I High Sens 4.5 (<3.5-17.0) ng/L B-Natriuretic Peptide 27 (<100) pg/mL Total Protein 8.4 H (6.5-8.0) g/dL Albumin 4.5 (3.5-5.0) g/dL Lipase 10 (8-78) U/L Urine Color Urine Appearance Urine pH (5.0-8.0) Ur Specific Jesse (1.005-1.025) Urine Protein (NEG-TRACE) MG/DL Urine Glucose (UA) (NEG) MG/DL Urine Ketones (NEG) MG/DL Urine Blood (NEG) Urine Nitrite (NEG) Ur Leukocyte Esterase (NEG) Urine RBC (0) /HPF Urine WBC (0-4) /HPF Ur Squamous Epith Cells /LPF Urine Bacteria /LPF Urine Mucus /LPF COVID-19 (SEAN) (Negative) COVID-19 Clin Com Influenza Type A (TAMIKO) (Negative) Influenza Type B (TAMIKO) (Negative) Influenza A & B Note 07/08/21 07/08/21 Range/Units 16:52 19:42 WBC (4.8-10.8) X10*3/uL RBC (4.20-5.50) X10*6/uL Hgb (12.0-16.0) g/dl Hct (37.0-47.0) % MCV (80.0-98.0) fL MCH (27.0-33.0) pg MCHC (31.0-35.0) g/dl RDW (11.0-16.0) % Plt Count (160-400) X10*3/uL MPV (9.4-12.3) fL Immature Gran % (Auto) (0.0-0.4) % Neut % (Auto) (45-73) % Lymph % (Auto) (20-40) % [place] % (Auto) (2-11) % Eos % (Auto) (0-4) % Baso % (Auto) (0-2) % Lymph # (Auto) (1.2-4.9) X10*3/uL [place] # (Auto) (0.1-1.2) X10*3/uL Eos # (Auto) (0.0-0.4) X10*3/uL Baso # (Auto) (0.0-0.2) X10*3/uL Abs Immat Gran (auto) (0.00-0.03) X10*3/uL Absolute Neuts (auto) (2.0-8.3) x10*3/uL Absolute Nucleated RBC (0.0-0.012) X10*3/uL Nucleated RBC % (auto) (0.0-0.2) /100WBC Sodium (135-145) mmol/L Potassium (3.3-5.1) mmol/L Chloride (96-108) mmol/L Carbon Dioxide (22-29) mmol/L Anion Gap (12-20) BUN (9-16) mg/dL Creatinine (0.5-1.4) mg/dL Estim Creat Clear Calc Estimated GFR Random Glucose (60-115) mg/dL Lactic Acid 0.9 (0.5-2.0) mmol/L Calcium (8.4-10.2) mg/dL Magnesium (1.6-2.6) mg/dL Total Bilirubin (0.0-1.0) mg/dL Direct Bilirubin (0.0-0.5) mg/dL AST (5-31) U/L ALT (0-31) U/L Alkaline Phosphatase (39-117) U/L Troponin I High Sens (<3.5-17.0) ng/L B-Natriuretic Peptide (<100) pg/mL Total Protein (6.5-8.0) g/dL Albumin (3.5-5.0) g/dL Lipase (8-78) U/L Urine Color YELLOW Urine Appearance CLEAR Urine pH 6.0 (5.0-8.0) Ur Specific Jesse 1.025 (1.005-1.025) Urine Protein 2+ H (NEG-TRACE) MG/DL Urine Glucose (UA) NEG (NEG) MG/DL Urine Ketones 15 (NEG) MG/DL Urine Blood TRACE (NEG) Urine Nitrite NEG (NEG) Ur Leukocyte Esterase NEG (NEG) Urine RBC 1-4 (0) /HPF Urine WBC 0-2 (0-4) /HPF Ur Squamous Epith Cells NONE /LPF Urine Bacteria NONE /LPF Urine Mucus TRACE /LPF COVID-19 (SEAN) (Negative) COVID-19 Clin Com Influenza Type A (TAMIKO) (Negative) Influenza Type B (TAMIKO) (Negative) Influenza A & B Note <GABRIELA Hagan - Last Filed: 07/08/21 22:37> ECG Data Attestation: I personally reviewed and interpreted this ECG as follows: <GABRIELA Fu - Last Filed: 07/08/21 21:01> ECG interpretation date: 07/08/21 <GABRIELA Fu Last Filed: 07/08/21 21:01> ECG interpretation time: 16:05 <GABRIELA Fu - Last Filed: 07/08/21 21:01> Interpretation: EKG normal sinus rhythm at a rate of 100. ID interval 138. Improvement when compared to prior EKGs. No STEMI. Artifact present <GABRIELA Fu Last Filed: 07/08/21 21:01> Critical Care Time Critical Care Time Critical Care Time: No <GABRIELA Hagan Last Filed: 07/08/21 22:37> Discharge Plan Discharge Clinical Impression: Acute exacerbation of chronic obstructive airways disease, Dizziness, Dysuria <GABRIELA Fu Last Filed: 07/08/21 21:01> Patient Disposition: Admitted As Inpatient <GABRIELA Fu Last Filed: 07/08/21 21:01>
[2021-07-08] MEDS: Albuterol Sulfate (0.083%) 2.5 MG/3 ML VIAL.NEB 5 MG INHALE (15:09)
[2021-07-08] MEDS: Albuterol/Iprat 2.5/0.5MG 3 ML AMPUL.NEB INHALE ×2 (15:12→16:39)
[2021-07-08] MEDS: methylPREDNISolone Sod Succ 125 MG/2 ML VIAL IVPUSH (15:21)
[2021-07-08] MEDS: Magnesium Sulfate/H2O 2 GM/50 ML PIGGYBACK IV (15:21)
[2021-07-08 15:32] LABS: MANUAL DIFF FLAG NO
[2021-07-08 15:34] LABS: Basophils Percent Auto 0.2 % (0-2); Eosinophils Percent Auto 0.2 % (0-4); Hematocrit 39.7 % (37.0-47.0); Hemoglobin 12.8 g/dl (12.0-16.0); Imm Gran Abs Auto 0.05 X10*3/uL (0.00-0.03); Imm Gran Pct Auto 0.3 % (0.0-0.4); Lymphocytes Absolute Auto 1.4 X10*3/uL (1.2-4.9); Lymphocytes Percent Auto 9.3 % (20-40); Mean Corpuscular HGB Conc 32.2 g/dl (31.0-35.0); Mean Corpuscular Hemoglobin 28.4 pg (27.0-33.0); Mean Platelet Volume 9.3 fL (9.4-12.3); Monocytes Absolute Auto 0.9 X10*3/uL (0.1-1.2); Monocytes Percent Auto 6.1 % (2-11); Neutrophils Absolute Auto 12.3 x10*3/uL (2.0-8.3); Neutrophils Percent Auto 83.9 % (45-73); Platelet Count 359 X10*3/uL (160-400); Red Blood Count 4.51 X10*6/uL (4.20-5.50); Red Cell Distribution Width 13.5 % (11.0-16.0); White Blood Count 14.7 X10*3/uL (4.8-10.8)
[2021-07-08 15:48] LABS: COVID-19 Test Negative (Negative); IDNOW Serial# 16C4AD1C; Influenza A Negative (Negative); Influenza B2 Negative (Negative)
[2021-07-08 15:54] LABS: B Type Natriuretic Peptide 27 pg/mL (<100)
[2021-07-08 15:56] LABS: Alanine Aminotransferase 16 U/L (0-31); Albumin Level 4.5 g/dL (3.5-5.0); Alkaline Phosphatase 97 U/L (39-117); Anion Gap 18 (12-20); Aspartate Amino Transferase 23 U/L (5-31); Bilirubin Direct 0.2 mg/dL (0.0-0.5); Bilirubin Total 0.4 mg/dL (0.0-1.0); Blood Urea Nitrogen 17 mg/dL (9-16); Calcium 10.3 mg/dL (8.4-10.2); Carbon Dioxide 30 mmol/L (22-29); Chloride 93 mmol/L (96-108); Creatinine Clr Calc Pharmacy 62.7; Estimated Glomerular Filt Rate > 60; Glucose Random 121 mg/dL (60-115); Lipase 10 U/L (8-78); Magnesium 2.2 mg/dL (1.6-2.6); Sodium 136 mmol/L (135-145); Total Protein 8.4 g/dL (6.5-8.0)
[2021-07-08 15:58] LABS: Troponin-I High Sensitivity 4.5 ng/L (<3.5-17.0)
--- NOTE | 2021-07-08 16:32 | PHA.MEDREC ---
Pharmacy Consult ? Medication Reconciliation Pharmacy has completed the medication reconciliation.
[2021-07-08 17:17] LABS: Lactic Acid 0.9 mmol/L (0.5-2.0)
[2021-07-08] MEDS: Meclizine HCl 25 MG TABLET PO (17:27)
[2021-07-08] MEDS: 0.9 % Sodium Chloride 500 ML 999 ML IV ×2 (17:27→21:06)
[2021-07-08] MEDS: LORazepam 1 MG TABLET PO (17:27)
[2021-07-08 19:50] LABS: Appearance Urine CLEAR; Color Urine YELLOW; Glucose Urine UA NEG (NEG); Leukocyte Esterase Urine NEG (NEG); Nitrite Urine NEG (NEG); Specific Gravity - Urine 1.025 (1.005-1.025); UACC Culture Trigger NO; Urine Blood TRACE (NEG); Urine Ketones 15 MG/DL (NEG); Urine Protein 2+ MG/DL (NEG-TRACE)
[2021-07-08 19:58] LABS: Mucus Urine TRACE /LPF; WBC Urine 0-2 /HPF (0-4)
[2021-07-08] MEDS: LORazepam 2 MG/ML VIAL 1 MG IVPUSH (21:00)
[2021-07-08] MEDS: diphenhydrAMINE HCL 50 MG/ML VIAL 12.5 MG IVPUSH (21:00)
[2021-07-08] MEDS: Phenazopyridine HCL 200 MG TABLET PO (21:15)
[2021-07-08] MEDS: Azithromycin 500 MG in 0.9 % Sodium Chloride 250 ML 125 MG IV (21:16)
--- NOTE | 2021-07-08 22:00 | PC.NURSE ---
while this nurse was with another pt in the same room, pt was talking aloud and getting agitated seeming to be talking/arguing with someone on the phone, when pt was asked if she was alright, she stated yes, im communicating with my holy spirit
[2021-07-08] MEDS: Enoxaparin Sodium 40 MG/0.4 ML SYRINGE SUBCUT (23:36)
--- NOTE | 2021-07-08 23:43 | PC.NURSE ---
pt given a sandwich per request. pt continually bends her arm occluding the IV antibiotic. pt reassured and reeducated to keep arm straight so abx can finish. pt asking for 2 fiorocets for a reported migraine, pt c/o headache earlier at 2100, prior to ativan and benadryl administraion and was told the meds will help her headache. pt stated, no they wont pt was comfortable without pain until just alerting this RN of her migraine. pt was assisted to bedside commode to void. resting in bed at this time. made aware of reported migraine
[2021-07-09] VITALS (17 sets, daily range): BP systolic 124–166; BP diastolic 55–88; PULSE 86–120; RESP 17–24; TEMP 36.3–37; O2SAT 3–99
[2021-07-09] MEDS: Butalb/Acetamin/Caff 50/325/40 TABLET 2 TAB PO (00:18)
--- NOTE | 2021-07-09 00:38 | PM.IMHP ---
History of Present Illness Date of Service: 07/08/21 Chief Complaint: sob 66-year-old female past medical history of anxiety, asthma, history of bronchitis, COPD, hypertension, presents to the hospital with complaints of shortness of breath. Patient reports that her symptoms started about 2-3 days ago, associated with cough, with no sputum production. Denies any fever or chills, but reports significant vertigo. Patient reports that her vertigo also started about 2-3 days ago, worsened on her arrival to the ED. she is complaining of left ear hurting and feels that she has any infection. Patient reports that she has a history of tympanic membrane perforation and gets ear infections regularly in the left ear. She is also complaining of decreased urine output and burning when she pees for the past 2 days. She denies any lower extremity edema, no abdominal pain nausea or vomiting, no diarrhea constipation, no chest pain, and no palpitations. Patient uses 5 L of oxygen at baseline On arrival to the ED patient was found to have tachycardia, tachypnea, blood pressure on the higher and Labs are significant for WBC count 14.7, UA negative, Chest x-ray showed chronic blunting at the left costophrenic angle likely associated with prominent fat pad, no acute pulmonary findings head CT shows mild cerebral volume loss with chronic small-vessel ischemic changes with no acute intracranial process Abdominal pelvic CT shows no acute findings in the abdomen or pelvis, no hydronephrosis or nephrolithiasis, Patient will be admitted for further management Review of Systems Review of Systems: Yes all other systems are reviewed and are negative [facility] Medical History (Updated 07/09/21 @ 06:11 by Callie Mccallum MD) Anxiety Asthma Bronchitis COPD (chronic obstructive pulmonary disease) Diverticulitis Emphysema lung Hypertension Family History (Updated 07/09/21 @ 06:08 by Callie Mccallum MD) Other No family history of coronary artery disease Surgical History (Updated 07/09/21 @ 06:09 by Callie Mccallum MD) History of breast surgery History of laparotomy Social History (Updated 07/09/21 @ 06:09 by Callie Mccallum MD) Alcohol intake: current Alcohol intake frequency: 0-2 drinks per day Patient Tobacco Use Status: Current everyday Tobacco user Advance Directives: Yes Advance Directives Information Provided: No Advance Directives on File: No Meds Allergies Allergy/AdvReac Type Severity Reaction Status Date / Time morphine [MORPHINE] Allergy Severe HIVES, Verified 10/04/20 22:39 high temp, nausea tetracycline [TETRACYCLINE] Allergy Severe VOMITING Verified 10/04/20 22:39 tramadol [TRAMADOL] Allergy Severe SWEATING, Verified 10/04/20 22:39 VOMITING, vomiting amoxicillin [From AUGMENTIN] AdvReac Severe CONSTIPATIO Verified 10/04/20 22:39 N clavulanic acid AdvReac Severe CONSTIPATIO Verified 10/04/20 22:39 [From AUGMENTIN] N codeine [CODEINE] AdvReac Severe NAUSEA Verified 10/04/20 22:39 levofloxacin [From LEVAQUIN] AdvReac Severe CONSTIPATIO Verified 10/04/20 22:39 N Sulfa(Sulfonamide Allergy Unknown Unknown Uncoded 10/04/20 22:39 Antibiotics) Active Medications: Current Medications Acetaminophen (Acetaminophen 325 Mg Tablet) 650 mg PO Q6H PRN PRN Reason: Pain, Mild (Pain Scale 1-3) Albuterol/Ipratropium (Albuterol/Iprat 2.5/0.5mg 3 Ml Ampul.Neb) 3 ml INHALE RQ4H PRN PRN Reason: Shortness of Breath/Wheezing Albuterol/Ipratropium (Albuterol/Iprat 2.5/0.5mg 3 Ml Ampul.Neb) 3 ml INHALE RQ4H WHILE AWAKE [facility] Cefuroxime Axetil (Cefuroxime Axetil 500 Mg Tablet) 500 mg PO Q12H [facility] Last Admin: 07/08/21 23:35 Dose: 500 mg Documented by: Docusate Sodium (Docusate Sodium 100 Mg Capsule) 100 mg PO DAILY PRN PRN Reason: Constipation Enoxaparin Sodium (Enoxaparin Sodium 40 Mg/0.4 Ml Syringe) 40 mg SUBCUT Q24H [facility] Last Admin: 07/08/21 23:36 Dose: 40 mg Documented by: Methylprednisolone Sodium Succinate (Methylprednisolone Sod Succ 40 Mg/Ml Vial) 40 mg IVPUSH Q12H [facility] Ondansetron HCl (Ondansetron Hcl 4 Mg/2 Ml Vial) 4 mg IVPUSH Q8H PRN PRN Reason: Nausea and Vomiting Pharmacy Consult (Consult Rx Perform Med Rec) 1 each MISCELLANE ONCE PRN PRN Reason: Consult order Sodium Chloride (0.9 % Sodium Chloride Flush 3 Ml Syringe) [facility] Medications Medication Instructions Recorded Confirmed Last Taken Type albuterol sulfate 1 vial INHALATION 6XD 10/04/20 07/08/21 07/08/21 History [id number] 1 - 2 tab PO Q12H PRN 10/04/20 07/08/21 07/08/21 History 50 mg-325 mg-40 mg tablet acetaminophen 325 mg capsule 325 mg PO QID PRN 07/08/21 07/08/21 07/08/21 History (Tylenol) diltiazem HCl 360 mg capsule,24 1 cap PO DAILY 07/08/21 07/08/21 07/08/21 History hr,extended release ipratropium bromide 17 1 puff INHALATION QID PRN 07/08/21 07/08/21 07/08/21 History mcg/actuation HFA aerosol inhaler (Atrovent HFA) lorazepam 2 mg tablet 1 tab PO Q6H PRN 07/08/21 07/08/21 07/08/21 History Physical Exam Vital Signs and Narrative: Vital Signs: Last Vital Signs Temp 98.1 F 07/08/21 21:10 Pulse 113 H 07/08/21 21:10 Resp 18 07/08/21 21:10 BP 170/84 H 07/08/21 21:10 Pulse Ox 97 07/08/21 21:10 Oxygen Flow Rate 5 07/08/21 14:38 BMI result Body Mass Index 30.5 Const: General: cooperative and no acute distress Orientation/consciousness: patient oriented x3 HEENT: Other: Right ear perforated tympanic membrane - erythema in the ear canal Eyes: General: appearance normal, both eyes and all related structures Pupils: Equal, round and reactive pupils present Resp: Other: Rhonchi bilaterally Effort & Inspection: normal respiratory effort Cardio: Rate: regular rate Rhythm: regular rhythm GI: Palpation (GI): Soft to palpation Auscultation: normal bowel sounds Skin: General skin exam: no rashes or lesions noted Neuro: General: patient oriented x3 Cranial nerves: Yes Equal, round and reactive pupils present Cognition (Neuro): normal cognition Extrem: General: Yes normal to inspection and Yes no pedal edema Results Labs CBC and Chem 7: 07/08/21 15:24 07/08/21 15:24 Labs: Laboratory Results - last 24 hr 07/08/21 07/08/21 07/08/21 15:21 15:21 15:24 MCV 88.0 MCH 28.4 MCHC 32.2 RDW 13.5 Plt Count 359 MPV 9.3 L Immature Gran % (Auto) 0.3 Neut % (Auto) 83.9 H Lymph % (Auto) 9.3 L Wheeler % (Auto) 6.1 Eos % (Auto) 0.2 Baso % (Auto) 0.2 Lymph # (Auto) 1.4 Wheeler # (Auto) 0.9 Eos # (Auto) 0.0 Baso # (Auto) 0.0 Abs Immat Gran (auto) 0.05 H Absolute Neuts (auto) 12.3 H Absolute Nucleated RBC 0.000 Nucleated RBC % (auto) 0.0 Anion Gap Estim Creat Clear Calc Estimated GFR Random Glucose Lactic Acid Calcium Magnesium Total Bilirubin Direct Bilirubin AST ALT Alkaline Phosphatase Troponin I High Sens B-Natriuretic Peptide Total Protein Albumin Lipase Urine Color Urine Appearance Urine pH Ur Specific [place] Urine Protein Urine Glucose (UA) Urine Ketones Urine Blood Urine Nitrite Ur Leukocyte Esterase Urine RBC Urine WBC Ur Squamous Epith Cells Urine Bacteria Urine Mucus COVID-19 (SEAN) Negative COVID-19 Clin Com See Note Influenza Type A (TAMIKO) Negative Influenza Type B (TAMIKO) Negative Influenza A & B Note See Note 07/08/21 07/08/21 07/08/21 15:24 15:24 15:24 MCV MCH MCHC RDW Plt Count MPV Immature Gran % (Auto) Neut % (Auto) Lymph % (Auto) Wheeler % (Auto) Eos % (Auto) Baso % (Auto) Lymph # (Auto) Wheeler # (Auto) Eos # (Auto) Baso # (Auto) Abs Immat Gran (auto) Absolute Neuts (auto) Absolute Nucleated RBC Nucleated RBC % (auto) Anion Gap 18 Estim Creat Clear Calc 62.7 Estimated GFR > 60 Random Glucose 121 H Lactic Acid Calcium 10.3 H Magnesium 2.2 Total Bilirubin 0.4 Direct Bilirubin 0.2 AST 23 D ALT 16 Alkaline Phosphatase 97 D Troponin I High Sens 4.5 B-Natriuretic Peptide 27 Total Protein 8.4 H Albumin 4.5 Lipase 10 Urine Color Urine Appearance Urine pH Ur Specific [place] Urine Protein Urine Glucose (UA) Urine Ketones Urine Blood Urine Nitrite Ur Leukocyte Esterase Urine RBC Urine WBC Ur Squamous Epith Cells Urine Bacteria Urine Mucus COVID-19 (SEAN) COVID-19 Clin Com Influenza Type A (TAMIKO) Influenza Type B (TAMIKO) Influenza A & B Note 07/08/21 07/08/21 16:52 19:42 MCV MCH MCHC RDW Plt Count MPV Immature Gran % (Auto) Neut % (Auto) Lymph % (Auto) Wheeler % (Auto) Eos % (Auto) Baso % (Auto) Lymph # (Auto) Wheeler # (Auto) Eos # (Auto) Baso # (Auto) Abs Immat Gran (auto) Absolute Neuts (auto) Absolute Nucleated RBC Nucleated RBC % (auto) Anion Gap Estim Creat Clear Calc Estimated GFR Random Glucose Lactic Acid 0.9 Calcium Magnesium Total Bilirubin Direct Bilirubin AST ALT Alkaline Phosphatase Troponin I High Sens B-Natriuretic Peptide Total Protein Albumin Lipase Urine Color YELLOW Urine Appearance CLEAR Urine pH 6.0 Ur Specific [place] 1.025 Urine Protein 2+ H Urine Glucose (UA) NEG Urine Ketones 15 Urine Blood TRACE Urine Nitrite NEG Ur Leukocyte Esterase NEG Urine RBC 1-4 Urine WBC 0-2 Ur Squamous Epith Cells NONE Urine Bacteria NONE Urine Mucus TRACE COVID-19 (SEAN) COVID-19 Clin Com Influenza Type A (TAMIKO) Influenza Type B (TAMIKO) Influenza A & B Note Imaging Radiologist's Impressions: Impressions Chest X-Ray 07/08/21 15:00 IMPRESSION: Chronic blunting at the left costophrenic angle likely associated with a prominent fat pad. No acute pulmonary finding. Abdomen/Pelvis CT 07/08/21 15:48 IMPRESSION: No acute findings in the abdomen or pelvis. No hydronephrosis or nephrolithiasis. Cholelithiasis without evidence for acute cholecystitis. Colonic diverticulosis without diverticulitis. Cystic structures in the right adnexa without change from prior. Fleischner guidelines were followed. Head CT 07/08/21 20:43 IMPRESSION: No acute intracranial process seen. Mild cerebral volume loss with chronic small vessel ischemic changes. Assessment and Plan (1) Acute exacerbation of chronic obstructive airways disease: Status: Acute (2) Vertigo: Status: Acute (3) Dysuria: Status: Acute (4) Otitis media: Status: Acute Plan 66-year-old female with past medical history of COPD, hypertension, anxiety presents the hospital with complaints of shortness of breath as well as vertigo # acute COPD exacerbation - has cough, dyspnea, - will treat with Solu-Medrol, DuoNeb p.r.n. as well as scheduled - monitor respiratory status - uses 5 L of oxygen at baseline - no evidence of pneumonia on chest x-ray, COVID-19 negative # vertigo - likely secondary to otitis media - will consult Physical therapy for Brianda maneuver # otitis media - allergic to penicillins - will treat with cefuroxime # dysuria - UA negative - supportive care # hypertension - continue diltiazem # anxiety - continue Ativan DVT prophylaxis: Lovenox Quality Stroke Does the patient have a stroke diagnosis?: No VTE Prior VTE?: No VTE Risk Level:: Medical - moderate - high VTE Device Contraindication: Treatment Not Indicated VTE Drug Contraindication: N/A - Med Ordered
--- NOTE | 2021-07-09 00:44 | PC.NURSE ---
pt interrupting this RN while talking to the patient who just got to room via EMS. pt was told that this RN was talking to another pt at this time, pt continued to talk aloud and this RN was unable to hear the patient who just arrived. pt was again told that this RN is working with another patient and needs to be able to hear. pt continues to talk aloud to self.
--- NOTE | 2021-07-09 01:30 | PC.NURSE ---
pt states that she needs her cardiac medication- cardizem since her HR is elevated and she cannot sleep. notified
[2021-07-09] MEDS: 0.9 % Sodium Chloride Flush 3 ML SYRINGE IVFLUSH ×3 (01:53→22:20)
[2021-07-09] MEDS: methylPREDNISolone Sod Succ 40 MG/ML VIAL IVPUSH ×2 (02:14→13:54)
[2021-07-09] MEDS: dilTIAZem HCL CD 180 MG CAP.ER.24H 360 MG PO ×2 (02:15→09:16)
--- NOTE | 2021-07-09 03:43 | PC.NURSE ---
pt continues to talk to self out loud. pt asked if she is going to go to sleep, pt replies no, im not tired.
--- NOTE | 2021-07-09 03:50 | PC.NURSE ---
while working with another pt in bed 14, patient repeating and commenting on everthing that is said between this RN and the other patient. This RN asked if the patient is ok and if anything is wrong, pt states, no nothing is wrong, im just connecting with my holy spirit pt has not slept yet, this RN told patient that it was time to turn the tv off to allow for other pt in the room to get rest, pt agreeable and stated, i wasnt even watching that
[2021-07-09] MEDS: LORazepam 1 MG TABLET 2 MG PO ×2 (06:28→13:54)
--- NOTE | 2021-07-09 06:29 | PC.NURSE ---
pt requestin atican and c/o chest tightness and SOB. PRN ativan 2mg PO administered, and resp called for neb tx.
[2021-07-09] MEDS: Albuterol/Iprat 2.5/0.5MG 3 ML AMPUL.NEB INHALE ×5 (06:30→19:50)
[2021-07-09 06:55] LABS: Hematocrit 38.1 % (37.0-47.0); Hemoglobin 12.2 g/dl (12.0-16.0); Imm Gran Abs Auto 0.04 X10*3/uL (0.00-0.03); Imm Gran Pct Auto 0.5 % (0.0-0.4); Lymphocytes Absolute Auto 0.6 X10*3/uL (1.2-4.9); Lymphocytes Percent Auto 6.9 % (20-40); MANUAL DIFF FLAG SCAN; Mean Corpuscular Hemoglobin 28.4 pg (27.0-33.0); Mean Corpuscular Volume 88.8 fL (80.0-98.0); Mean Platelet Volume 9.7 fL (9.4-12.3); Monocytes Absolute Auto 0.1 X10*3/uL (0.1-1.2); Monocytes Percent Auto 1.3 % (2-11); Neutrophils Absolute Auto 7.2 x10*3/uL (2.0-8.3); Neutrophils Percent Auto 91.3 % (45-73); Platelet Count 372 X10*3/uL (160-400); Red Blood Count 4.29 X10*6/uL (4.20-5.50); Red Cell Distribution Width 13.8 % (11.0-16.0); SCAN SMEAR FLAG 1; White Blood Count 7.9 X10*3/uL (4.8-10.8)
[2021-07-09 07:15] LABS: Anion Gap 19 (12-20); Blood Urea Nitrogen 17 mg/dL (9-16); Calcium 9.9 mg/dL (8.4-10.2); Carbon Dioxide 25 mmol/L (22-29); Chloride 100 mmol/L (96-108); Creatinine Clr Calc Pharmacy 69.5; Estimated Glomerular Filt Rate > 60; Glucose Random 127 mg/dL (60-115); Potassium 4.6 mmol/L (3.3-5.1); Sodium 139 mmol/L (135-145)
[2021-07-09 07:17] LABS: SLIDE REVIEW VERIFIED
--- NOTE | 2021-07-09 07:50 | PC.NURSE ---
pt informed t/w that the holy spirit is within her, and has been for 13 years and he has told her that she is not going to be here much longer, maybe a week at most
--- NOTE | 2021-07-09 12:49 | MHC.CM.PN ---
CM ATTEMPTED TO SEE PT WHO WAS SLEEPING PER RN NOTES, PT WAS AWAKE MOST OF THE NIGHT CM WILL RETURN
--- NOTE | 2021-07-09 15:26 | PM.PSYCN ---
History of Present Illness Date of Service: 07/09/21 Chief Complaint: COPD execerbation Reason for Consult: hallucinations, talking to God Requesting physician: Milla White Discussed with referring provider: Yes Sources of Information: patient interviewed and chart reviewed Additional Sources of Information: spoke with Marcelino at [phone], with patient's permission. HPI Narrative: Patient is a 66-year-old female, past medical history of anxiety, asthma, history of bronchitis, COPD, hypertension, presents to the hospital with complaints of shortness of breath. Admitted for further care and management of acute COPD D exacerbation, vertical, otitis media. Psychiatry was consulted due to report of hallucinations, patient talking to God. Per provider; She had told provider that she speaks to God, and that God had told her that she has a heart condition, and that she may pass away within a week. Patient has longstanding history of lorazepam 2 mg q.i.d. p.r.n. for ECTOR. Through chart review, patient has no documented psychiatric illness other than anxiety, no history of inpatient level of care here on psych unit or in [facility]. Patient was resting in bed, in NAD, upon approach. She presented with slightly anxious mood an affect, although pleasant and engageable. She was fully alert and oriented. She states that she saw a psychiatrist years ago, for anxiety. She states she has been taking lorazepam for over 30 years. When asked if she has been experiencing any type of hallucinations, she laughed, and stated ?0h, that is why you are here ?. She denies any active AH/VH, denies any thought of harm to self or others, either past or present. She states that after a near experience 13 years ago, she was reporting, and speaks daily with the Holy Spirit. She states that this is part of her Zoroastrianism belief, and that she believes in the great caused Jetoddvah. She states that she reads her Bible daily. She states that she has had a traumatic past. She lost 2 children as infants, 2 years apart. She states that her brother when she was 17 years old. She stated that she also was at 17. She stated ?I have had a hard life ?. She states that she has always had a believe in a Zoroastrianism God, but was born again 13 years ago. She states that her lord does speak to her through the Holy Spirit. She states that she truly believes this as a Zoroastrianism, and does not feel it is related to stress or mental illness in any way. She stated that her makes her healthcare decisions when she is not able to. She gave permission for this job specification writer to contact him, and provided his phone number. Past Psychiatric History: hx ECTOR, receiving lorazepam for many years. Remote hx of psychiatrist for anxiety, over 30 years ago . No IPLOC Medical Evaluation Reviewed: Yes Personal & Social History: , lives with spouse. Review of Systems Review of Systems A full review of systems was completed and was negative with the exception of pertinent positives noted in history of the presenting illness (HPI). [facility] Medical History (Updated 07/09/21 @ 15:58 by Brittany Maddox) Anxiety Asthma Bronchitis COPD (chronic obstructive pulmonary disease) Diverticulitis Emphysema lung Hypertension Surgical History History of breast surgery History of laparotomy Diagnostics Vital Signs (24Hr): Vital Signs - 24 hr 07/08/21 16:39 07/08/21 18:22 07/08/21 19:58 Temperature Pulse Rate 102 H Respiratory Rate 18 24 H Blood Pressure Pulse Oximetry 97 07/08/21 19:59 07/08/21 20:01 07/08/21 21:10 Temperature 98.1 F Pulse Rate 114 H 113 H Respiratory Rate 26 H 24 H 18 Blood Pressure 176/78 H 170/84 H Pulse Oximetry 98 97 07/08/21 23:00 07/09/21 00:46 07/09/21 01:52 Temperature Pulse Rate 116 H 120 H 113 H Respiratory Rate 20 18 20 Blood Pressure Pulse Oximetry 95 97 07/09/21 01:56 07/09/21 04:21 07/09/21 05:35 Temperature Pulse Rate 111 H 113 H 104 H Respiratory Rate 24 H 18 18 Blood Pressure 162/78 H 166/88 H Pulse Oximetry 96 98 97 07/09/21 06:31 07/09/21 09:16 07/09/21 09:36 Temperature Pulse Rate 106 H 109 H 109 H Respiratory Rate 19 20 20 Blood Pressure 149/67 H Pulse Oximetry 98 07/09/21 09:57 07/09/21 12:26 07/09/21 12:52 Temperature Pulse Rate 109 H 101 H 100 Respiratory Rate 21 H 17 Blood Pressure 127/64 Pulse Oximetry 93 95 07/09/21 13:51 07/09/21 15:04 07/09/21 15:23 Temperature 98.0 F 98.0 F Pulse Rate 87 97 101 H Respiratory Rate 18 18 18 Blood Pressure 124/55 L 134/74 Pulse Oximetry 3 L 97 BMI result Body Mass Index 30.5 Labs Results: 07/09/21 06:11 07/09/21 06:11 Labs: Laboratory Results - last 48 hr 07/08/21 07/08/21 07/08/21 15:21 15:21 15:24 WBC 14.7 H RBC 4.51 Hgb 12.8 Hct 39.7 MCV 88.0 MCH 28.4 MCHC 32.2 RDW 13.5 Plt Count 359 MPV 9.3 L Immature Gran % (Auto) 0.3 Neut % (Auto) 83.9 H Lymph % (Auto) 9.3 L [place] % (Auto) 6.1 Eos % (Auto) 0.2 Baso % (Auto) 0.2 Lymph # (Auto) 1.4 [place] # (Auto) 0.9 Eos # (Auto) 0.0 Baso # (Auto) 0.0 Abs Immat Gran (auto) 0.05 H Absolute Neuts (auto) 12.3 H Absolute Nucleated RBC 0.000 Nucleated RBC % (auto) 0.0 Smear Tech's Comments Sodium Potassium Chloride Carbon Dioxide Anion Gap BUN Creatinine Estim Creat Clear Calc Estimated GFR Random Glucose Lactic Acid Calcium Magnesium Total Bilirubin Direct Bilirubin AST ALT Alkaline Phosphatase Troponin I High Sens B-Natriuretic Peptide Total Protein Albumin Lipase Urine Color Urine Appearance Urine pH Ur Specific [place] Urine Protein Urine Glucose (UA) Urine Ketones Urine Blood Urine Nitrite Ur Leukocyte Esterase Urine RBC Urine WBC Ur Squamous Epith Cells Urine Bacteria Urine Mucus COVID-19 (SEAN) Negative COVID-19 Clin Com See Note Influenza Type A (TAMIKO) Negative Influenza Type B (TAMIKO) Negative Influenza A & B Note See Note 07/08/21 07/08/21 07/08/21 15:24 15:24 15:24 WBC RBC Hgb Hct MCV MCH MCHC RDW Plt Count MPV Immature Gran % (Auto) Neut % (Auto) Lymph % (Auto) [place] % (Auto) Eos % (Auto) Baso % (Auto) Lymph # (Auto) [place] # (Auto) Eos # (Auto) Baso # (Auto) Abs Immat Gran (auto) Absolute Neuts (auto) Absolute Nucleated RBC Nucleated RBC % (auto) Smear Tech's Comments Sodium 136 Potassium 5.0 D Chloride 93 L Carbon Dioxide 30 H Anion Gap 18 BUN 17 H Creatinine 0.72 Estim Creat Clear Calc 62.7 Estimated GFR > 60 Random Glucose 121 H Lactic Acid Calcium 10.3 H Magnesium 2.2 Total Bilirubin 0.4 Direct Bilirubin 0.2 AST 23 D ALT 16 Alkaline Phosphatase 97 D Troponin I High Sens 4.5 B-Natriuretic Peptide 27 Total Protein 8.4 H Albumin 4.5 Lipase 10 Urine Color Urine Appearance Urine pH Ur Specific [place] Urine Protein Urine Glucose (UA) Urine Ketones Urine Blood Urine Nitrite Ur Leukocyte Esterase Urine RBC Urine WBC Ur Squamous Epith Cells Urine Bacteria Urine Mucus COVID-19 (SEAN) COVID-19 Clin Com Influenza Type A (TAMIKO) Influenza Type B (TAMIKO) Influenza A & B Note 07/08/21 07/08/21 07/09/21 16:52 19:42 06:11 WBC 7.9 RBC 4.29 Hgb 12.2 Hct 38.1 MCV 88.8 MCH 28.4 MCHC 32.0 RDW 13.8 Plt Count 372 MPV 9.7 Immature Gran % (Auto) 0.5 H Neut % (Auto) 91.3 H Lymph % (Auto) 6.9 L [place] % (Auto) 1.3 L Eos % (Auto) 0.0 Baso % (Auto) 0.0 Lymph # (Auto) 0.6 L [place] # (Auto) 0.1 Eos # (Auto) 0.0 Baso # (Auto) 0.0 Abs Immat Gran (auto) 0.04 H Absolute Neuts (auto) 7.2 Absolute Nucleated RBC 0.000 Nucleated RBC % (auto) 0.0 Smear Tech's Comments VERIFIED Sodium Potassium Chloride Carbon Dioxide Anion Gap BUN Creatinine Estim Creat Clear Calc Estimated GFR Random Glucose Lactic Acid 0.9 Calcium Magnesium Total Bilirubin Direct Bilirubin AST ALT Alkaline Phosphatase Troponin I High Sens B-Natriuretic Peptide Total Protein Albumin Lipase Urine Color YELLOW Urine Appearance CLEAR Urine pH 6.0 Ur Specific [place] 1.025 Urine Protein 2+ H Urine Glucose (UA) NEG Urine Ketones 15 Urine Blood TRACE Urine Nitrite NEG Ur Leukocyte Esterase NEG Urine RBC 1-4 Urine WBC 0-2 Ur Squamous Epith Cells NONE Urine Bacteria NONE Urine Mucus TRACE COVID-19 (SEAN) COVID-19 Clin Com Influenza Type A (TAMIKO) Influenza Type B (TAMIKO) Influenza A & B Note 07/09/21 06:11 WBC RBC Hgb Hct MCV MCH MCHC RDW Plt Count MPV Immature Gran % (Auto) Neut % (Auto) Lymph % (Auto) [place] % (Auto) Eos % (Auto) Baso % (Auto) Lymph # (Auto) [place] # (Auto) Eos # (Auto) Baso # (Auto) Abs Immat Gran (auto) Absolute Neuts (auto) Absolute Nucleated RBC Nucleated RBC % (auto) Smear Tech's Comments Sodium 139 Potassium 4.6 Chloride 100 Carbon Dioxide 25 Anion Gap 19 BUN 17 H Creatinine 0.65 Estim Creat Clear Calc 69.5 Estimated GFR > 60 Random Glucose 127 H Lactic Acid Calcium 9.9 Magnesium Total Bilirubin Direct Bilirubin AST ALT Alkaline Phosphatase Troponin I High Sens B-Natriuretic Peptide Total Protein Albumin Lipase Urine Color Urine Appearance Urine pH Ur Specific [place] Urine Protein Urine Glucose (UA) Urine Ketones Urine Blood Urine Nitrite Ur Leukocyte Esterase Urine RBC Urine WBC Ur Squamous Epith Cells Urine Bacteria Urine Mucus COVID-19 (SEAN) COVID-19 Clin Com Influenza Type A (TAMIKO) Influenza Type B (TAMIKO) Influenza A & B Note Imaging Radiology Impressions: ITS Impressions Chest X-Ray 07/08/21 15:00 IMPRESSION: Chronic blunting at the left costophrenic angle likely associated with a prominent fat pad. No acute pulmonary finding. Abdomen/Pelvis CT 07/08/21 15:48 IMPRESSION: No acute findings in the abdomen or pelvis. No hydronephrosis or nephrolithiasis. Cholelithiasis without evidence for acute cholecystitis. Colonic diverticulosis without diverticulitis. Cystic structures in the right adnexa without change from prior. Fleischner guidelines were followed. Head CT 07/08/21 20:43 IMPRESSION: No acute intracranial process seen. Mild cerebral volume loss with chronic small vessel ischemic changes. Mental Status Exam Mental Status Exam Narrative: Well-developed female, appears stated age. Resting in bed. Fatigued, wearing hospital garb. NAD. Behavior was calm, cooperative with interview. Psychomotor/musculoskeletal: No slowing or agitation noted. Gait/ambulation not observed. Speech/language: Regular rate and rhythm, full prosody, normal volume. Mood slightly anxious but stable, affect congruent. Thought content focused on current hospital stay, medical issues. Denies SI/HI. Perception/experiences: No hallucinations, paranoia, delusions noted. Patient does state that God speaks to her through the Holy Spirit, as part of her Zoroastrianism belief. Patient was fully alert and oriented x3. Memory intact. Attention and concentration appropriate. Abstract reasoning grossly intact. Fund of knowledge adequate. Insight/judgment: Patient recognizes current medical condition, medications she is receiving. Does states that she speaks to her Zoroastrianism God through the Holy Spirit, states that this is a Zoroastrianism belief that she practices. Medications Medications Current Medications Acetaminophen (Acetaminophen 325 Mg Tablet) 650 mg PO Q6H PRN PRN Reason: Pain, Mild (Pain Scale 1-3) Acetaminophen/Butalbital/Caffeine (Butalb/Acetamin/Caff 50/325/40 Tablet) 1 - 2 tab PO Q12H PRN PRN Reason: Headache Albuterol Sulfate (Albuterol Sulfate (0.083%) 2.5 Mg/3 Ml Vial.Neb) 2.5 mg INHALE Q6H PRN PRN Reason: shortness of breath/wheezing Albuterol/Ipratropium (Albuterol/Iprat 2.5/0.5mg 3 Ml Ampul.Neb) 3 ml INHALE RQ4H PRN PRN Reason: Shortness of Breath/Wheezing Last Admin: 07/09/21 06:30 Dose: 3 ml Documented by: Albuterol/Ipratropium (Albuterol/Iprat 2.5/0.5mg 3 Ml Ampul.Neb) 3 ml INHALE RQ4H WHILE AWAKE [facility] Last Admin: 07/09/21 15:22 Dose: 3 ml Documented by: Cefuroxime Axetil (Cefuroxime Axetil 500 Mg Tablet) 500 mg PO Q12H NARCISA Last Admin: 07/09/21 10:37 Dose: 500 mg Documented by: Diltiazem HCl (Diltiazem Hcl Cd 180 Mg Cap.Er.24h) 360 mg PO DAILY [facility]; Protocol Last Admin: 07/09/21 09:16 Dose: 360 mg Documented by: Docusate Sodium (Docusate Sodium 100 Mg Capsule) 100 mg PO DAILY PRN PRN Reason: Constipation Enoxaparin Sodium (Enoxaparin Sodium 40 Mg/0.4 Ml Syringe) 40 mg SUBCUT Q24H [facility] Last Admin: 07/08/21 23:36 Dose: 40 mg Documented by: Ipratropium [place] (Ipratropium [place] 1 Puff/17 Mcg Inhaler) 1 puff INHALE QID PRN PRN Reason: Wheezing Lorazepam (Lorazepam 1 Mg Tablet) 1 mg PO Q6H PRN PRN Reason: anxiety Methylprednisolone Sodium Succinate (Methylprednisolone Sod Succ 40 Mg/Ml Vial) 40 mg IVPUSH Q12H [facility] Last Admin: 07/09/21 13:54 Dose: 40 mg Documented by: Ondansetron HCl (Ondansetron Hcl 4 Mg/2 Ml Vial) 4 mg IVPUSH Q8H PRN PRN Reason: Nausea and Vomiting Pharmacy Consult (Consult Rx Perform Med Rec) 1 each MISCELLANE ONCE PRN PRN Reason: Consult order Sodium Chloride (0.9 % Sodium Chloride Flush 3 Ml Syringe) 3 ml IVFLUSH QSHIFT [facility] Last Admin: 07/09/21 09:15 Dose: 3 ml Documented by: Allergies Allergies Allergy/AdvReac Type Severity Reaction Status Date / Time morphine [MORPHINE] Allergy Severe HIVES, Verified 10/04/20 22:39 high temp, nausea tetracycline [TETRACYCLINE] Allergy Severe VOMITING Verified 10/04/20 22:39 tramadol [TRAMADOL] Allergy Severe SWEATING, Verified 10/04/20 22:39 VOMITING, vomiting amoxicillin [From AUGMENTIN] AdvReac Severe CONSTIPATIO Verified 10/04/20 22:39 N clavulanic acid AdvReac Severe CONSTIPATIO Verified 10/04/20 22:39 [From AUGMENTIN] N codeine [CODEINE] AdvReac Severe NAUSEA Verified 10/04/20 22:39 levofloxacin [From LEVAQUIN] AdvReac Severe CONSTIPATIO Verified 10/04/20 22:39 N Sulfa(Sulfonamide Allergy Unknown Unknown Uncoded 10/04/20 22:39 Antibiotics) Assessment & Plan Assessment & Plan (1) Anxiety: Status: Acute Code(s): F41.9 - Anxiety disorder, unspecified Assessment and Plan: Patient has longstanding history of generalized anxiety disorder, on lorazepam therapy for multiple years. She does allude to traumatic childhood and early adulthood, although does not state she was ever formally diagnosed with PTSD, although it is a possibility. She has had multiple losses in her life. She states that after a near experience 13 years ago, she was born again, and began communicating with her Zoroastrianism God through the Holy Spirit. She does not see this as a problem in any way. She gave permission to call her for collateral information. I did reach him at phone number [phone]. He explained that he and his are both born again Zoroastrianism is, and that is part of their belief system, God communicates with them through the Holy Spirit. He states he is not under any treatment for psychiatric illness, nor is his , except for generalized anxiety. Plan Patient is a 66-year-old female, admitted for further treatment of COPD exacerbation. She has a history of anxiety disorder, and receives lorazepam. She had told providers that she speaks to God, and that God had told her that she has a heart condition, and that she may pass away within a week. Patient and her both state they are born again Zoroastrianism's, and that as part of their belief they do speak with God through the Holy spirit. The states that they do not see visions, or had any other symptoms. Patient was able to state that she is not experiencing any SI/HI, and has no intent to harm herself or others in any way whatsoever. She was fully cooperative during interview. RECOMMENDATIONS: 1. Continue with current lorazepam as ordered. 2. Would not recommend any further psychiatric treatment at this time, no medication recommendations. I spent minutes with the patient and/or on the patient floor today, greater than?50% of which was spent counseling/coordinating care. Patient educated on: diagnosis, medication risk/benefits and therapeutic strategies Informed Consent: understands
--- NOTE | 2021-07-09 15:30 | P.PNIM_ITS ---
Subjective Subjective Date of Service: 07/09/21 Interval History: seen and examined this morning follow up for COPD exacerbation pt reports shortness of breath for 4 days and cough productive of yellow phlegm she is talking with God and states that he told her that her heart will stop in the next week Review of Systems Review of Systems: Yes all other systems are reviewed and are negative Constitutional Constitutional: Denies chills and Denies fever(s) Cardiovascular Cardiovascular: Denies chest pain, Denies palpitations and Reports dyspnea Respiratory Respiratory: Reports cough and Reports dyspnea Gastrointestinal Gastrointestinal: Denies abdominal pain, Denies nausea and Denies vomiting Endocrine Endocrine: Denies palpitations Physical Exam Vital Signs: Vital Signs: Last Vital Signs Temp 98.0 F 07/09/21 15:04 Pulse 101 H 07/09/21 15:23 Resp 18 07/09/21 15:23 BP 134/74 07/09/21 15:04 Pulse Ox 97 07/09/21 15:04 Oxygen Flow Rate 5 07/08/21 14:38 BMI result Body Mass Index 30.5 Const: General: cooperative, comfortable, no acute distress, alert and awake Orientation/consciousness: patient oriented x3 Resp: Effort & Inspection: normal respiratory effort, able to speak in compl ete sentences and decreased respiratory effort Auscultation: diminished lung sounds Cardio: Rate: regular rate Heart sounds: S1 normal heart sound present and S2 normal heart sound present GI: Inspection: No distended Palpation (GI): Soft to palpation and nontender Neuro: Other: able to move all 4 extremities spontaneously General: patient oriented x3 Extrem: General: Yes no pedal edema Objective Data Active Medications Acetaminophen (Acetaminophen 325 Mg Tablet) 650 mg PO Q6H PRN PRN Reason: Pain, Mild (Pain Scale 1-3) Acetaminophen/Butalbital/Caffeine (Butalb/Acetamin/Caff 50/325/40 Tablet) 1 - 2 tab PO Q12H PRN PRN Reason: Headache Albuterol Sulfate (Albuterol Sulfate (0.083%) 2.5 Mg/3 Ml Vial.Neb) 2.5 mg INHALE Q6H PRN PRN Reason: shortness of breath/wheezing Albuterol/Ipratropium (Albuterol/Iprat 2.5/0.5mg 3 Ml Ampul.Neb) 3 ml INHALE RQ4H PRN PRN Reason: Shortness of Breath/Wheezing Last Admin: 07/09/21 06:30 Dose: 3 ml Documented by: MATDENIZ Albuterol/Ipratropium (Albuterol/Iprat 2.5/0.5mg 3 Ml Ampul.Neb) 3 ml INHALE RQ4H WHILE AWAKE [facility] Last Admin: 07/09/21 15:22 Dose: 3 ml Documented by: BLALORETTA Cefuroxime Axetil (Cefuroxime Axetil 500 Mg Tablet) 500 mg PO Q12H [facility] Last Admin: 07/09/21 10:37 Dose: 500 mg Documented by: ANTELMO Diltiazem HCl (Diltiazem Hcl Cd 180 Mg Cap.Er.24h) 360 mg PO DAILY [facility]; Protocol Last Admin: 07/09/21 09:16 Dose: 360 mg Documented by: ANTELMO Docusate Sodium (Docusate Sodium 100 Mg Capsule) 100 mg PO DAILY PRN PRN Reason: Constipation Enoxaparin Sodium (Enoxaparin Sodium 40 Mg/0.4 Ml Syringe) 40 mg SUBCUT Q24H [facility] Last Admin: 07/08/21 23:36 Dose: 40 mg Documented by: KEERTHI Ipratropium [place] (Ipratropium [place] 1 Puff/17 Mcg Inhaler) 1 puff INHALE QID PRN PRN Reason: Wheezing Lorazepam (Lorazepam 1 Mg Tablet) 1 mg PO Q6H PRN PRN Reason: anxiety Methylprednisolone Sodium Succinate (Methylprednisolone Sod Succ 40 Mg/Ml Vial) 40 mg IVPUSH Q12H [facility] Last Admin: 07/09/21 13:54 Dose: 40 mg Documented by: ESTEVAN Ondansetron HCl (Ondansetron Hcl 4 Mg/2 Ml Vial) 4 mg IVPUSH Q8H PRN PRN Reason: Nausea and Vomiting Pharmacy Consult (Consult Rx Perform Med Rec) 1 each MISCELLANE ONCE PRN PRN Reason: Consult order Sodium Chloride (0.9 % Sodium Chloride Flush 3 Ml Syringe) 3 ml IVFLUSH QSHIFT [facility] Last Admin: 07/09/21 09:15 Dose: 3 ml Documented by: ANTELMO Labs CBC & Chem 7: 07/09/21 06:11 07/09/21 06:11 Labs: Laboratory Results - last 24 hr 07/08/21 07/08/21 07/08/21 15:21 15:21 15:24 MCV 88.0 MCH 28.4 MCHC 32.2 RDW 13.5 Plt Count 359 MPV 9.3 L Immature Gran % (Auto) 0.3 Neut % (Auto) 83.9 H Lymph % (Auto) 9.3 L [place] % (Auto) 6.1 Eos % (Auto) 0.2 Baso % (Auto) 0.2 Lymph # (Auto) 1.4 [place] # (Auto) 0.9 Eos # (Auto) 0.0 Baso # (Auto) 0.0 Abs Immat Gran (auto) 0.05 H Absolute Neuts (auto) 12.3 H Absolute Nucleated RBC 0.000 Nucleated RBC % (auto) 0.0 Smear Tech's Comments Anion Gap Estim Creat Clear Calc Estimated GFR Random Glucose Lactic Acid Calcium Magnesium Total Bilirubin Direct Bilirubin AST ALT Alkaline Phosphatase Troponin I High Sens B-Natriuretic Peptide Total Protein Albumin Lipase Urine Color Urine Appearance Urine pH Ur Specific [place] Urine Protein Urine Glucose (UA) Urine Ketones Urine Blood Urine Nitrite Ur Leukocyte Esterase Urine RBC Urine WBC Ur Squamous Epith Cells Urine Bacteria Urine Mucus COVID-19 (ESAN) Negative COVID-19 Clin Com See Note Influenza Type A (TAMIKO) Negative Influenza Type B (TAMIKO) Negative Influenza A & B Note See Note 07/08/21 07/08/21 07/08/21 15:24 15:24 15:24 MCV MCH MCHC RDW Plt Count MPV Immature Gran % (Auto) Neut % (Auto) Lymph % (Auto) [place] % (Auto) Eos % (Auto) Baso % (Auto) Lymph # (Auto) [place] # (Auto) Eos # (Auto) Baso # (Auto) Abs Immat Gran (auto) Absolute Neuts (auto) Absolute Nucleated RBC Nucleated RBC % (auto) Smear Tech's Comments Anion Gap 18 Estim Creat Clear Calc 62.7 Estimated GFR > 60 Random Glucose 121 H Lactic Acid Calcium 10.3 H Magnesium 2.2 Total Bilirubin 0.4 Direct Bilirubin 0.2 AST 23 D ALT 16 Alkaline Phosphatase 97 D Troponin I High Sens 4.5 B-Natriuretic Peptide 27 Total Protein 8.4 H Albumin 4.5 Lipase 10 Urine Color Urine Appearance Urine pH Ur Specific [place] Urine Protein Urine Glucose (UA) Urine Ketones Urine Blood Urine Nitrite Ur Leukocyte Esterase Urine RBC Urine WBC Ur Squamous Epith Cells Urine Bacteria Urine Mucus COVID-19 (SEAN) COVID-19 Clin Com Influenza Type A (TAMIKO) Influenza Type B (TAMIKO) Influenza A & B Note 07/08/21 07/08/21 07/09/21 16:52 19:42 06:11 MCV 88.8 MCH 28.4 MCHC 32.0 RDW 13.8 Plt Count 372 MPV 9.7 Immature Gran % (Auto) 0.5 H Neut % (Auto) 91.3 H Lymph % (Auto) 6.9 L [place] % (Auto) 1.3 L Eos % (Auto) 0.0 Baso % (Auto) 0.0 Lymph # (Auto) 0.6 L [place] # (Auto) 0.1 Eos # (Auto) 0.0 Baso # (Auto) 0.0 Abs Immat Gran (auto) 0.04 H Absolute Neuts (auto) 7.2 Absolute Nucleated RBC 0.000 Nucleated RBC % (auto) 0.0 Smear Tech's Comments VERIFIED Anion Gap Estim Creat Clear Calc Estimated GFR Random Glucose Lactic Acid 0.9 Calcium Magnesium Total Bilirubin Direct Bilirubin AST ALT Alkaline Phosphatase Troponin I High Sens B-Natriuretic Peptide Total Protein Albumin Lipase Urine Color YELLOW Urine Appearance CLEAR Urine pH 6.0 Ur Specific [place] 1.025 Urine Protein 2+ H Urine Glucose (UA) NEG Urine Ketones 15 Urine Blood TRACE Urine Nitrite NEG Ur Leukocyte Esterase NEG Urine RBC 1-4 Urine WBC 0-2 Ur Squamous Epith Cells NONE Urine Bacteria NONE Urine Mucus TRACE COVID-19 (SEAN) COVID-19 Clin Com Influenza Type A (TAMIKO) Influenza Type B (TAMIKO) Influenza A & B Note 07/09/21 06:11 MCV MCH MCHC RDW Plt Count MPV Immature Gran % (Auto) Neut % (Auto) Lymph % (Auto) [place] % (Auto) Eos % (Auto) Baso % (Auto) Lymph # (Auto) [place] # (Auto) Eos # (Auto) Baso # (Auto) Abs Immat Gran (auto) Absolute Neuts (auto) Absolute Nucleated RBC Nucleated RBC % (auto) Smear Tech's Comments Anion Gap 19 Estim Creat Clear Calc 69.5 Estimated GFR > 60 Random Glucose 127 H Lactic Acid Calcium 9.9 Magnesium Total Bilirubin Direct Bilirubin AST ALT Alkaline Phosphatase Troponin I High Sens B-Natriuretic Peptide Total Protein Albumin Lipase Urine Color Urine Appearance Urine pH Ur Specific [place] Urine Protein Urine Glucose (UA) Urine Ketones Urine Blood Urine Nitrite Ur Leukocyte Esterase Urine RBC Urine WBC Ur Squamous Epith Cells Urine Bacteria Urine Mucus COVID-19 (SEAN) COVID-19 Clin Com Influenza Type A (TAMIKO) Influenza Type B (TAMIKO) Influenza A & B Note Assessment and Plan (1) Acute exacerbation of chronic obstructive airways disease: Status: Acute Plan 66-year-old female with past medical history of COPD, hypertension, anxiety presents the hospital with complaints of shortness of breath as well as vertigo acute COPD exacerbation reports using 5L NC at baseline, 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 as well as scheduled - no evidence of pneumonia on chest x-ray, Covid/flu negative vertigo brain CT negative - likely secondary to otitis media - sympomatic care Hallucinations initially thought to be hallucinating pt speaks to the [employer] spirit who told her that her heart will stop and she will go to sleep in the next 7 days seen by psych - feels that this is her way of praying and there is no need for medication/inpatient psych otitis media allergic to penicillins - will treat with cefuroxime dysuria UA negative - supportive care hypertension - continue diltiazem anxiety - continue Ativan DVT prophylaxis: Shante Attending - dr. john matute - seen by PT rec STR when medically stable Requires ongoing inpatient hospitalization due to acute COPD exacerbation and need for IV steroids, nebulizer treatments Quality Stroke Does the patient have a stroke diagnosis?: No VTE Prior VTE?: No VTE Risk Level:: Medical - moderate - high VTE Device Contraindication: Treatment Not Indicated VTE Drug Contraindication: N/A - Med Ordered
[2021-07-09] MEDS: Enoxaparin Sodium 40 MG/0.4 ML SYRINGE SUBCUT (22:18)
[2021-07-09] MEDS: Butalb/Acetamin/Caff 50/325/40 TABLET PO (22:18)
[2021-07-09] MEDS: LORazepam 1 MG TABLET PO (22:27)
[2021-07-10] VITALS (8 sets, daily range): BP systolic 116–157; BP diastolic 55–79; PULSE 79–108; RESP 16–27; TEMP 36.3–37.2; O2SAT 92–99
[2021-07-10] MEDS: methylPREDNISolone Sod Succ 40 MG/ML VIAL IVPUSH ×2 (02:35→14:51)
[2021-07-10] MEDS: LORazepam 1 MG TABLET PO (04:27)
[2021-07-10] MEDS: LORazepam 1 MG TABLET 2 MG PO ×2 (09:51→18:14)
[2021-07-10] MEDS: 0.9 % Sodium Chloride Flush 3 ML SYRINGE IVFLUSH ×3 (09:51→21:33)
[2021-07-10] MEDS: dilTIAZem HCL CD 180 MG CAP.ER.24H 360 MG PO (09:51)
--- NOTE | 2021-07-10 10:34 | MHC.CM.PN ---
IMM 07/10/21, ERM REVIEWED, PT ADMITTED W/COPD EXAC, CM MET W/PT WHO IS PRAYING AND ROCKING IN BED, PT REPORTS SHE LIVES W/ ON A 5TH FLOOR WALK-UP AND WILL NEED AMBULANCE TRANSPORT, PT UNABLE TO MANAGE STAIRS ON HER OWN AND REPORTS SHE IS ON 5L O2 AT BASELINE, PT DENIES USE OF ANY OTHER DME AND HAS NO HOME SERVICES, PT DENIES BEING VACCINATED FOR COVID REPORTING THE HOLY SPIRIT TOLD HER NOT TO GET IT, PER PT THE HOLY SPIRIT GIVES HER DIRECTION ON MANY THINGS AND HELPS HER STAY CALM. PT REPORTS HER DALILA WRIGHT IS HER [facility] [[email or web address]BADN [phone] AND VERIFIES PCP IS RICARDO CARDENAS HOWEVER HE COULD NOT SEE HER UNTIL AUGUST. 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
[2021-07-10] MEDS: Albuterol/Iprat 2.5/0.5MG 3 ML AMPUL.NEB INHALE ×2 (10:47→20:15)
--- NOTE | 2021-07-10 14:03 | HO.PM.IMPN ---
Subjective Subjective Date of Service: 07/10/21 Interval History: seen and examined this morning feeling anxious this morning, dose of ativan was lower then home dose and she is upset also does not want oral meds for otitis media and requesting ear drops but she has TM perf still feeling short of breath Review of Systems Review of Systems: Yes all other systems are reviewed and are negative Constitutional Constitutional: Denies chills and Denies fever(s) Cardiovascular Cardiovascular: Denies chest pain, Denies palpitations and Reports dyspnea Respiratory Respiratory: Reports cough and Reports dyspnea Gastrointestinal Gastrointestinal: Denies abdominal pain, Denies nausea and Denies vomiting Endocrine Endocrine: Denies palpitations Physical Exam Vital Signs: Vital Signs: Last Vital Signs Temp 97.6 F 07/10/21 11:35 Pulse 99 07/10/21 11:35 Resp 23 H 07/10/21 11:35 BP 148/59 H 07/10/21 11:35 Pulse Ox 96 07/10/21 11:35 Oxygen Flow Rate 5 07/08/21 14:38 BMI result Body Mass Index 30.5 Const: General: cooperative, comfortable, no acute distress, alert and awake Orientation/consciousness: patient oriented x3 Resp: Effort & Inspection: normal respiratory effort, able to speak in complete sentences and decreased respiratory effort Auscultation: diminished lung sounds Cardio: Rate: regular rate Heart sounds: S1 normal heart sound present and S2 normal heart sound present GI: Inspection: No distended Palpation (GI): Soft to palpation and nontender Neuro: Other: able to move all 4 extremities spontaneously General: patient oriented x3 Extrem: General: Yes no pedal edema Objective Data Active Medications Acetaminophen (Acetaminophen 325 Mg Tablet) 650 mg PO Q6H PRN PRN Reason: Pain, Mild (Pain Scale 1-3) Acetaminophen/Butalbital/Caffeine (Butalb/Acetamin/Caff 50/325/40 Tablet) 1 - 2 tab PO Q12H PRN PRN Reason: Headache Last Admin: 07/09/21 22:18 Dose: 2 tab Documented by: JUAN ANTONIO Albuterol Sulfate (Albuterol Sulfate (0.083%) 2.5 Mg/3 Ml Vial.Neb) 2.5 mg INHALE Q6H PRN PRN Reason: shortness of breath/wheezing Albuterol/Ipratropium (Albuterol/Iprat 2.5/0.5mg 3 Ml Ampul.Neb) 3 ml INHALE RQ4H PRN PRN Reason: Shortness of Breath/Wheezing Last Admin: 07/09/21 06:30 Dose: 3 ml Documented by: BENIGNO Albuterol/Ipratropium (Albuterol/Iprat 2.5/0.5mg 3 Ml Ampul.Neb) 3 ml INHALE RQ4H WHILE AWAKE [facility] Last Admin: 07/10/21 10:47 Dose: 3 ml Documented by: FLORENCIO Cefuroxime Axetil (Cefuroxime Axetil 500 Mg Tablet) 500 mg PO Q12H [facility] Last Admin: 07/10/21 09:55 Dose: Not Given Documented by: LÁZARO Non-Admin Reason: Patient Refused Diltiazem HCl (Diltiazem Hcl Cd 180 Mg Cap.Er.24h) 360 mg PO DAILY [facility]; Protocol Last Admin: 07/10/21 09:51 Dose: 360 mg Documented by: LÁZARO Docusate Sodium (Docusate Sodium 100 Mg Capsule) 100 mg PO DAILY PRN PRN Reason: Constipation Enoxaparin Sodium (Enoxaparin Sodium 40 Mg/0.4 Ml Syringe) 40 mg SUBCUT Q24H [facility] Last Admin: 07/09/21 22:18 Dose: 40 mg Documented by: JUAN ANTONIO Ipratropium [place] (Ipratropium [place] 1 Puff/17 Mcg Inhaler) 1 puff INHALE QID PRN PRN Reason: Wheezing Lorazepam (Lorazepam 1 Mg Tablet) 2 mg PO Q6H PRN PRN Reason: anxiety Last Admin: 07/10/21 09:51 Dose: 2 mg Documented by: LÁZARO Methylprednisolone Sodium Succinate (Methylprednisolone Sod Succ 40 Mg/Ml Vial) 40 mg IVPUSH Q12H [facility] Last Admin: 07/10/21 02:35 Dose: 40 mg Documented by: JUAN ANTONIO Ondansetron HCl (Ondansetron Hcl 4 Mg/2 Ml Vial) 4 mg IVPUSH Q8H PRN PRN Reason: Nausea and Vomiting Pharmacy Consult (Consult Rx Perform Med Rec) 1 each MISCELLANE ONCE PRN PRN Reason: Consult order Sodium Chloride (0.9 % Sodium Chloride Flush 3 Ml Syringe) 3 ml IVFLUSH QSHIFT [facility] Last Admin: 07/10/21 09:51 Dose: 3 ml Documented by: LÁZARO Labs CBC & Chem 7: 07/09/21 06:11 07/09/21 06:11 Microbiology Microbiology Results: Microbiology 07/08/21 16:54 Blood Culture - Preliminary Blood - Venous No growth after 24 hours. 07/08/21 16:52 Blood Culture - Preliminary Blood - Venous No growth after 24 hours. Assessment and Plan (1) Acute exacerbation of chronic obstructive airways disease: Status: Acute Plan 66-year-old female with past medical history of COPD, hypertension, anxiety presents the hospital with complaints of shortness of breath as well as vertigo acute COPD exacerbation reports using 5L NC at baseline, but has no hand i tube bender. refusing to decrease oxygen despite oxygen saturating in the high 90s - continue Solu-Medrol, DuoNeb p.r.n. as well as scheduled - no evidence of pneumonia on chest x-ray, Covid/flu negative vertigo brain CT negative - likely secondary to otitis media/TM perf - symptomatic care Hallucinations initially thought to be hallucinating pt speaks to the holy spirit who told her that her heart will stop and she will go to sleep in the next 7 days seen by psych - feels that this is her way of praying and there is no need for medication/inpatient psych otitis media allergic to penicillins - will treat with cefuroxime - pt doesn't want oral meds, requesting ear drops but not indicated given TM perf dysuria UA negative - supportive care hypertension - continue diltiazem anxiety - continue Ativan DVT prophylaxis: Shante Attending - dr. esthela matute - seen by PT rec STR when medically stable Requires ongoing inpatient hospitalization due to acute COPD exacerbation and need for IV steroids, nebulizer treatments Quality Stroke Does the patient have a stroke diagnosis?: No VTE Prior VTE?: No VTE Risk Level:: Medical - moderate - high VTE Device Contraindication: Treatment Not Indicated VTE Drug Contraindication: N/A - Med Ordered
[2021-07-10] MEDS: Enoxaparin Sodium 40 MG/0.4 ML SYRINGE SUBCUT (21:32)
[2021-07-11] VITALS (7 sets, daily range): BP systolic 138–172; BP diastolic 64–82; PULSE 71–109; RESP 18–23; TEMP 36.4–37.1; O2SAT 95–98
[2021-07-11] MEDS: LORazepam 1 MG TABLET 2 MG PO ×4 (00:06→19:40)
[2021-07-11] MEDS: Butalb/Acetamin/Caff 50/325/40 TABLET PO ×2 (00:06→12:21)
[2021-07-11] MEDS: methylPREDNISolone Sod Succ 40 MG/ML VIAL IVPUSH ×2 (02:49→15:26)
[2021-07-11] MEDS: Acetaminophen 325 MG TABLET 650 MG PO (05:14)
[2021-07-11] MEDS: Albuterol/Iprat 2.5/0.5MG 3 ML AMPUL.NEB INHALE ×2 (07:14→19:24)
[2021-07-11] MEDS: dilTIAZem HCL CD 180 MG CAP.ER.24H 360 MG PO (07:41)
[2021-07-11] MEDS: 0.9 % Sodium Chloride Flush 3 ML SYRINGE IVFLUSH ×3 (07:42→21:11)
[2021-07-11] MEDS: guaiFENesin LA 600 MG TAB.ER.12H PO ×2 (10:11→21:11)
--- NOTE | 2021-07-11 12:02 | P.PNIM_ITS ---
Subjective Subjective Date of Service: 07/11/21 Interval History: seen and examined this morning follow up for COPD exacerbation still feeling short of breath, feels congested Review of Systems Review of Systems: Yes all other systems are reviewed and are negative Constitutional Constitutional: Denies chills and Denies fever(s) Cardiovascular Cardiovascular: Denies chest pain, Denies palpitations and Reports dyspnea Respiratory Respiratory: Reports cough and Reports dyspnea Gastrointestinal Gastrointestinal: Denies abdominal pain, Denies nausea and Denies vomiting Endocrine Endocrine: Denies palpitations Physical Exam Vital Signs: Vital Signs: Last Vital Signs Temp 98.8 F 07/11/21 11:43 Pulse 109 H 07/11/21 11:43 Resp 23 H 07/11/21 11:43 BP 160/77 H 07/11/21 11:43 Pulse Ox 95 07/11/21 11:43 Oxygen Flow Rate 5 07/08/21 14:38 BMI result Body Mass Index 30.5 Const: General: cooperative, comfortable, no acute distress, alert and awake Orientation/consciousness: patient oriented x3 HEENT: Other: no mastoid tenderness Resp: Effort & Inspection: normal respiratory effort, able to speak in complete sentences and decreased respiratory effort Auscultation: diminished lung sounds Cardio: Rate: regular rate Heart sounds: S1 normal heart sound present and S2 normal heart sound present GI: Inspection: No distended Palpation (GI): Soft to palpation and nontender Neuro: Other: able to move all 4 extremities spontaneously General: patient oriented x3 Extrem: General: Yes no pedal edema Objective Data Active Medications Acetaminophen (Acetaminophen 325 Mg Tablet) 650 mg PO Q6H PRN PRN Reason: Pain, Mild (Pain Scale 1-3) Last Admin: 07/11/21 05:14 Dose: 650 mg Documented by: JUAN ANTONIO Acetaminophen/Butalbital/Caffeine (Butalb/Acetamin/Caff 50/325/40 Tablet) 1 - 2 tab PO Q12H PRN PRN Reason: Headache Last Admin: 07/11/21 00:06 Dose: 2 tab Documented by: JUAN ANTONIO Albuterol Sulfate (Albuterol Sulfate (0.083%) 2.5 Mg/3 Ml Vial.Neb) 2.5 mg INHALE Q6H PRN PRN Reason: shortness of breath/wheezing Albuterol/Ipratropium (Albuterol/Iprat 2.5/0.5mg 3 Ml Ampul.Neb) 3 ml INHALE RQ4H PRN PRN Reason: Shortness of Breath/Wheezing Last Admin: 07/09/21 06:30 Dose: 3 ml Documented by: BENIGNO Albuterol/Ipratropium (Albuterol/Iprat 2.5/0.5mg 3 Ml Ampul.Neb) 3 ml INHALE RQ4H WHILE AWAKE [facility] Last Admin: 07/11/21 11:09 Dose: Not Given Documented by: FLORENCIO Non-Admin Reason: Patient Refused Cefuroxime Axetil (Cefuroxime Axetil 500 Mg Tablet) 500 mg PO Q12H [facility] Last Admin: 07/11/21 10:11 Dose: 500 mg Documented by: AMBER Diltiazem HCl (Diltiazem Hcl Cd 180 Mg Cap.Er.24h) 360 mg PO DAILY [facility]; Protoc ol Last Admin: 07/11/21 07:41 Dose: 360 mg Documented by: AMBER Docusate Sodium (Docusate Sodium 100 Mg Capsule) 100 mg PO DAILY PRN PRN Reason: Constipation Enoxaparin Sodium (Enoxaparin Sodium 40 Mg/0.4 Ml Syringe) 40 mg SUBCUT Q24H [facility] Last Admin: 07/10/21 21:32 Dose: 40 mg Documented by: JUAN ANTONIO Guaifenesin (Guaifenesin [place] 600 Mg Tab.Er.12h) 600 mg PO BID [facility] Last Admin: 07/11/21 10:11 Dose: 600 mg Documented by: AMBER Ipratropium [place] (Ipratropium [place] 1 Puff/17 Mcg Inhaler) 1 puff INHALE QID PRN PRN Reason: Wheezing Lorazepam (Lorazepam 1 Mg Tablet) 2 mg PO Q6H PRN PRN Reason: anxiety Last Admin: 07/11/21 05:29 Dose: 2 mg Documented by: JUAN ANTONIO Methylprednisolone Sodium Succinate (Methylprednisolone Sod Succ 40 Mg/Ml Vial) 40 mg IVPUSH Q12H [facility] Last Admin: 07/11/21 02:49 Dose: 40 mg Documented by: JUAN ANTONIO Ondansetron HCl (Ondansetron Hcl 4 Mg/2 Ml Vial) 4 mg IVPUSH Q8H PRN PRN Reason: Nausea and Vomiting Pharmacy Consult (Consult Rx Perform Med Rec) 1 each MISCELLANE ONCE PRN PRN Reason: Consult order Sodium Chloride (0.9 % Sodium Chloride Flush 3 Ml Syringe) [facility] Last Admin: 07/11/21 07:42 Dose: 3 ml Documented by: AMBER Sodium Chloride (Sodium Chloride 0.65 % Nasal 44 Ml Sprbtl) 1 spray NOSTRIL-B Q4H PRN PRN Reason: Dry Nasal Passages Labs CBC & Chem 7: 07/09/21 06:11 07/09/21 06:11 Microbiology Microbiology Results: Microbiology 07/08/21 16:54 Blood Culture - Preliminary Blood - Venous No growth after 48 hours. 07/08/21 16:52 Blood Culture - Preliminary Blood - Venous No growth after 48 hours. Assessment and Plan (1) Acute exacerbation of chronic obstructive airways disease: Status: Acute Plan 66-year-old female with past medical history of COPD, hypertension, anxiety presents the hospital with complaints of shortness of breath as well as vertigo acute COPD exacerbation reports using 5L NC at baseline, but has no ob/gyn physician. Declines to decrease oxygen despite oxygen saturating in the high 90s still reporting dyspnea - continue Solu-Medrol, DuoNeb p.r.n. as well as scheduled - pulmonary consult pending vertigo improving brain CT negative likely secondary to otitis media/TM perf - symptomatic care Hallucinations initially thought to be hallucinating pt speaks to the holy spirit who told her that her heart will stop and she will go to sleep in the next 7 days seen by psych - feels that this is her way of praying and there is no need for medication/inpatient psych otitis media allergic to penicillins - will treat with cefuroxime - pt doesn't want oral meds, requesting ear drops but not indicated given TM perf dysuria UA negative hypertension - continue diltiazem anxiety - continue Ativan DVT prophylaxis: Shante Attending - dr. esthela matute - seen by PT rec STR when medically stable Requires ongoing inpatient hospitalization due to acute COPD exacerbation and need for IV steroids, nebulizer treatments Quality Stroke Does the patient have a stroke diagnosis?: No VTE Prior VTE?: No VTE Risk Level:: Medical - moderate - high VTE Device Contraindication: Treatment Not Indicated VTE Drug Contraindication: N/A - Med Ordered
[2021-07-11] MEDS: Sodium Chloride 0.65 % Nasal 44 ML SPRBTL 1 SPRAY NOSTRIL-B (19:40)
[2021-07-11] MEDS: Enoxaparin Sodium 40 MG/0.4 ML SYRINGE SUBCUT (21:11)
[2021-07-12] VITALS (7 sets, daily range): BP systolic 137–149; BP diastolic 74–103; PULSE 86–108; RESP 18; TEMP 36.2–36.6; O2SAT 96–100
[2021-07-12] MEDS: Butalb/Acetamin/Caff 50/325/40 TABLET PO ×3 (01:52→20:03)
[2021-07-12] MEDS: LORazepam 1 MG TABLET 2 MG PO ×3 (01:57→17:08)
[2021-07-12] MEDS: methylPREDNISolone Sod Succ 40 MG/ML VIAL IVPUSH ×2 (03:16→17:05)
[2021-07-12] MEDS: oxyCODONE HCl Immed Release 5 MG TABLET PO (05:44)
--- NOTE | 2021-07-12 06:17 | PC.NURSE ---
pt c/o 9/ sharp right rib pain refused tylenol. notified and 1 time dose of oxycodone 5mg po ordered and given.
[2021-07-12] MEDS: guaiFENesin LA 600 MG TAB.ER.12H PO ×2 (09:09→20:03)
[2021-07-12] MEDS: 0.9 % Sodium Chloride Flush 3 ML SYRINGE IVFLUSH ×3 (09:10→20:05)
[2021-07-12] MEDS: dilTIAZem HCL CD 180 MG CAP.ER.24H 360 MG PO (09:10)
--- NOTE | 2021-07-12 09:30 | MHC.CM.PN ---
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 CM DISCUSSED STR OPTIONS W/PT AND PT REPORTS SHE PREFERS TO STAY IN [place] OR CLOSE POSSIBLE, REFERRALS TO BE PLACED.
--- NOTE | 2021-07-12 09:40 | PM.CNPUL ---
History of Present Illness History of Present Illness Consult date: 07/12/21 Chief complaint: COPD execerbation Narrative: This is an inpatient pulmonary consultation. The patient is a 6 old female past medical history of anxiety, asthma, history of bronchitis, COPD, hypertension, presents to the hospital with complaints of shortness of breath.? Patient reports that her symptoms started about 2-3 days ago, associated with cough, with no sputum production.? Denies any fever or chills, but reports significant vertigo.? Patient reports that her vertigo also started about 2-3 days ago, worsened on her arrival to the ED. she is complaining of left ear hurting and feels that she has any infection.? Patient reports that she has a history of tympanic membrane perforation and gets ear infections regularly in the left ear.?Patient uses 5 L of oxygen at baseline. In the ED, the patient was found to have tachycardia, tachypnea, blood pressure. Chest x-ray showed chronic blunting at the left costophrenic angle likely associated with prominent fat pad, no acute pulmonary findings head CT shows mild cerebral volume loss with chronic small-vessel ischemic changes with no acute intracranial process. I personally reviewed the CT scan of the abdomen demonstrating about half of the lung volume on the lung windows. She did have extensive emphysema. Current the patient is doing relatively well from a respiratory status. Still complaining of dyspnea. However has other complaints including her left ear discomfort and left hip pain and she is feeling anxious. Review of Systems Constitutional: Constitutional: Denies fever(s) Eyes: Eyes: Denies change in vision ENT: Reports vertigo, Reports ear discharge and Reports otalgia Cardiovascular: Cardiovascular: Denies chest pain, Reports dyspnea and Reports dyspnea on exertion Respiratory: Respiratory: Reports dyspnea and Reports dyspnea on exertion Gastrointestinal: Gastrointestinal: Reports no additional gastrointestinal complaints Musculoskeletal: Musculoskeletal: Reports abnormal gait and Reports arthralgias Neurologic: Reports abnormal gait and Reports vertigo [facility] Past Medical History Medical History (Updated 07/12/21 @ 09:51 by Nitesh Ragsdale MD) Anxiety Asthma Bronchitis Chronic respiratory failure COPD (chronic obstructive pulmonary disease) Diverticulitis Emphysema lung Hypertension Family History Family History (Updated 07/09/21 @ 06:08 by Callie Mccallum MD) Other No family history of coronary artery disease Surgical History Surgical History History of breast surgery History of laparotomy Social History Social History (Updated 07/09/21 @ 06:09 by Callie Mccallum MD) Household Members: Spouse Housing: Other Housing Other:: ellen Do you presently have visiting nurse or other home services: No Alcohol intake: current Alcohol intake frequency: 0-2 drinks per day Patient Tobacco Use Status: Former Tobacco user service: No Meds Allergies Allergy/AdvReac Type Severity Reaction Status Date / Time morphine [MORPHINE] Allergy Severe HIVES, Verified 10/04/20 22:39 high temp, nausea tetracycline [TETRACYCLINE] Allergy Severe VOMITING Verified 10/04/20 22:39 tramadol [TRAMADOL] Allergy Severe SWEATING, Verified 10/04/20 22:39 VOMITING, vomiting amoxicillin [From AUGMENTIN] AdvReac Severe CONSTIPATIO Verified 10/04/20 22:39 N clavulanic acid AdvReac Severe CONSTIPATIO Verified 10/04/20 22:39 [From AUGMENTIN] N codeine [CODEINE] AdvReac Severe NAUSEA Verified 10/04/20 22:39 levofloxacin [From LEVAQUIN] AdvReac Severe CONSTIPATIO Verified 10/04/20 22:39 N Sulfa(Sulfonamide Allergy Unknown Unknown Uncoded 10/04/20 22:39 Antibiotics) Active Medications: Current Medications Acetaminophen (Acetaminophen 325 Mg Tablet) 650 mg PO Q6H PRN PRN Reason: Pain, Mild (Pain Scale 1-3) Last Admin: 07/11/21 05:14 Dose: 650 mg Documented by: Acetaminophen/Butalbital/Caffeine (Butalb/Acetamin/Caff 50/325/40 Tablet) 1 - 2 tab PO Q12H PRN PRN Reason: Headache Last Admin: 07/12/21 01:53 Dose: 2 tab Documented by: Albuterol Sulfate (Albuterol Sulfate (0.083%) 2.5 Mg/3 Ml Vial.Neb) 2.5 mg INHALE Q6H PRN PRN Reason: shortness of breath/wheezing Albuterol/Ipratropium (Albuterol/Iprat 2.5/0.5mg 3 Ml Ampul.Neb) 3 ml INHALE RQ4H PRN PRN Reason: Shortness of Breath/Wheezing Last Admin: 07/09/21 06:30 Dose: 3 ml Documented by: Albuterol/Ipratropium (Albuterol/Iprat 2.5/0.5mg 3 Ml Ampul.Neb) 3 ml INHALE RQ4H WHILE AWAKE [facility] Last Admin: 07/12/21 07:35 Dose: Not Given Documented by: Cefuroxime Axetil (Cefuroxime Axetil 500 Mg Tablet) 500 mg PO Q12H [facility] Last Admin: 07/11/21 21:16 Dose: Not Given Documented by: Diltiazem HCl (Diltiazem Hcl Cd 180 Mg Cap.Er.24h) 360 mg PO DAILY [facility]; Protocol Last Admin: 07/12/21 09:10 Dose: 360 mg Documented by: Docusate Sodium (Docusate Sodium 100 Mg Capsule) 100 mg PO DAILY PRN PRN Reason: Constipation Enoxaparin Sodium (Enoxaparin Sodium 40 Mg/0.4 Ml Syringe) 40 mg SUBCUT Q24H [facility] Last Admin: 07/11/21 21:11 Dose: 40 mg Documented by: Guaifenesin (Guaifenesin [place] 600 Mg Tab.Er.12h) 600 mg PO BID [facility] Last Admin: 07/12/21 09:09 Dose: 600 mg Documented by: Ipratropium [place] (Ipratropium [place] 1 Puff/17 Mcg Inhaler) 1 puff INHALE QID PRN PRN Reason: Wheezing Lorazepam (Lorazepam 1 Mg Tablet) 2 mg PO Q6H PRN PRN Reason: anxiety Last Admin: 07/12/21 09:09 Dose: 2 mg Documented by: Methylprednisolone Sodium Succinate (Methylprednisolone Sod Succ 40 Mg/Ml Vial) 40 mg IVPUSH Q12H [facility] Last Admin: 07/12/21 03:16 Dose: 40 mg Documented by: Ondansetron HCl (Ondansetron Hcl 4 Mg/2 Ml Vial) 4 mg IVPUSH Q8H PRN PRN Reason: Nausea and Vomiting Pharmacy Consult (Consult Rx Perform Med Rec) 1 each MISCELLANE ONCE PRN PRN Reason: Consult order Sodium Chloride (0.9 % Sodium Chloride Flush 3 Ml Syringe) 3 ml IVFLUSH QSHIFT [facility] Last Admin: 07/12/21 09:10 Dose: 3 ml Documented by: Sodium Chloride (Sodium Chloride 0.65 % Nasal 44 Ml Sprbtl) 1 spray NOSTRIL-B Q4H PRN PRN Reason: Dry Nasal Passages Last Admin: 07/11/21 19:40 Dose: 1 spray Documented by: Home Medications Medication Instructions Recorded Confirmed Last Taken Type albuterol sulfate 1 vial INHALATION 6XD 10/04/20 07/08/21 07/08/21 History [id number] 1 - 2 tab PO Q12H PRN 10/04/20 07/08/21 07/08/21 History 50 mg-325 mg-40 mg tablet acetaminophen 325 mg capsule 325 mg PO QID PRN 07/08/21 07/08/21 07/08/21 History (Tylenol) diltiazem HCl 360 mg capsule,24 1 cap PO DAILY 07/08/21 07/08/21 07/08/21 History hr,extended release ipratropium bromide 17 1 puff INHALATION QID PRN 07/08/21 07/08/21 07/08/21 History mcg/actuation HFA aerosol inhaler (Atrovent HFA) lorazepam 2 mg tablet 1 tab PO Q6H PRN 07/08/21 07/08/21 07/08/21 History Physical Exam Vital Signs: Vital Signs: Last Vital Signs Temp 97.3 F 07/12/21 07:39 Pulse 87 07/12/21 07:39 Resp 18 07/12/21 07:39 BP 143/90 H 07/12/21 07:39 Pulse Ox 99 07/12/21 07:39 Oxygen Flow Rate 5 07/08/21 14:38 BMI result Body Mass Index 30.5 Const: General: alert HEENT: Ears: external ear abnormal auricular tenderness and pain with movement of external ear Neck: Neck: Yes normal visual inspection, Yes full ROM and Yes no lymphadenopathy Chest: Chest palpation & inspection: normal inspection of the chest Resp: Auscultation: diminished lung sounds Cardio: Rate: regular rate Rhythm: regular rhythm Heart sounds: S1 normal heart sound present and S2 normal heart sound present GI: Palpation (GI): Soft to palpation and nontender Auscultation: normal bowel sounds Skin: General skin exam: rashes and/or lesions noted Results Laboratory Findings CBC and BMP: 07/09/21 06:11 07/09/21 06:11 Abnormal lab findings: Abnormal Labs 07/08/21 07/08/21 07/08/21 15:24 15:24 19:42 WBC 14.7 H MPV 9.3 L Immature Gran % (Auto) Neut % (Auto) 83.9 H Lymph % (Auto) 9.3 L [place] % (Auto) Lymph # (Auto) Abs Immat Gran (auto) 0.05 H Absolute Neuts (auto) 12.3 H Chloride 93 L Carbon Dioxide 30 H BUN 17 H Random Glucose 121 H Calcium 10.3 H Total Protein 8.4 H Urine Protein 2+ H 07/09/21 07/09/21 06:11 06:11 WBC MPV Immature Gran % (Auto) 0.5 H Neut % (Auto) 91.3 H Lymph % (Auto) 6.9 L [place] % (Auto) 1.3 L Lymph # (Auto) 0.6 L Abs Immat Gran (auto) 0.04 H Absolute Neuts (auto) Chloride Carbon Dioxide BUN 17 H Random Glucose 127 H Calcium Total Protein Urine Protein Microbiology: Microbiology 07/08/21 16:54 Blood - Venous Blood Culture - Preliminary No growth after 48 hours. 07/08/21 16:52 Blood - Venous Blood Culture - Preliminary No growth after 48 hours. Assessment and Plan (1) Acute exacerbation of chronic obstructive airways disease: Status: Acute (2) Chronic respiratory failure: Status: Acute (3) Otitis media: Status: Acute (4) Otitis externa: Status: Acute Plan Clinically the patient is doing better from a respiratory status. She does have advanced emphysema and is on high oxygen requirements at baseline. Recommendations: Start Breo and Spiriva daily Continue nebulized therapy Start ear drops. 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 She has had a history of mastoiditis. Continue oxygen to maintain a pulse ox between 90-96%. Repeat venous gas to assess her pCO2. It has been chronically elevated. Procedures Date of Service Date of Service: 07/12/21
--- NOTE | 2021-07-12 10:59 | P.PNIM_ITS ---
Subjective Subjective Date of Service: 07/12/21 Review of Systems seen and examined this morning follow up for COPD exacerbation feeling ok Physical Exam Vital Signs: Vital Signs: Last Vital Signs Temp 97.3 F 07/12/21 07:39 Pulse 87 07/12/21 07:39 Resp 18 07/12/21 07:39 BP 143/90 H 07/12/21 07:39 Pulse Ox 99 07/12/21 07:39 Oxygen Flow Rate 5 07/08/21 14:38 BMI result Body Mass Index 30.5 Appearing in no acute distress lung sounds dim heart regular rate rhythm, clear S1, S2 positive bowel sounds, abdomen is soft, nontender neuro patient is alert x3, no focal deficits Objective Data Active Medications Acetaminophen (Acetaminophen 325 Mg Tablet) 650 mg PO Q6H PRN PRN Reason: Pain, Mild (Pain Scale 1-3) Last Admin: 07/11/21 05:14 Dose: 650 mg Documented by: JUAN ANTONIO Acetaminophen/Butalbital/Caffeine (Butalb/Acetamin/Caff 50/325/40 Tablet) 1 - 2 tab PO Q12H PRN PRN Reason: Headache Last Admin: 07/12/21 01:53 Dose: 2 tab Documented by: KEATON Albuterol Sulfate (Albuterol Sulfate (0.083%) 2.5 Mg/3 Ml Vial.Neb) 2.5 mg INHALE Q6H PRN PRN Reason: shortness of breath/wheezing Albuterol/Ipratropium (Albuterol/Iprat 2.5/0.5mg 3 Ml Ampul.Neb) 3 ml INHALE RQ4H PRN PRN Reason: Shortness of Breath/Wheezing Last Admin: 07/09/21 06:30 Dose: 3 ml Documented by: BENIGNO Albuterol/Ipratropium (Albuterol/Iprat 2.5/0.5mg 3 Ml Ampul.Neb) 3 ml INHALE RQ4H WHILE AWAKE [facility] Last Admin: 07/12/21 10:33 Dose: Not Given Documented by: FLORENCIO Non-Admin Reason: Patient Refused Cefuroxime Axetil (Cefuroxime Axetil 500 Mg Tablet) 500 mg PO Q12H [facility] Last Admin: 07/11/21 21:16 Dose: Not Given Documented by: KEATON Non-Admin Reason: Patient Refused Diltiazem HCl (Diltiazem Hcl Cd 180 Mg Cap.Er.24h) 360 mg PO DAILY [facility]; Drea col Last Admin: 07/12/21 09:10 Dose: 360 mg Documented by: RITA Docusate Sodium (Docusate Sodium 100 Mg Capsule) 100 mg PO DAILY PRN PRN Reason: Constipation Enoxaparin Sodium (Enoxaparin Sodium 40 Mg/0.4 Ml Syringe) 40 mg SUBCUT Q24H [facility] Last Admin: 07/11/21 21:11 Dose: 40 mg Documented by: KEATON Fluticasone/Vilanterol (Fluticasone/Vilanterol 100/25 Blst.W.Dev) 1 puff INHALE RDAILY [facility] Guaifenesin (Guaifenesin [place] 600 Mg Tab.Er.12h) 600 mg PO BID [facility] Last Admin: 07/12/21 09:09 Dose: 600 mg Documented by: RITA Ipratropium [place] (Ipratropium [place] 1 Puff/17 Mcg Inhaler) 1 puff INHALE QID PRN PRN Reason: Wheezing Lorazepam (Lorazepam 1 Mg Tablet) 2 mg PO Q6H PRN PRN Reason: anxiety Last Admin: 07/12/21 09:09 Dose: 2 mg Documented by: RITA Methylprednisolone Sodium Succinate (Methylprednisolone Sod Succ 40 Mg/Ml Vial) 40 mg IVPUSH Q12H [facility] Last Admin: 07/12/21 03:16 Dose: 40 mg Documented by: KEATON Neomycin/Polymyxin/Hydrocortisone (Neomycin/Polymyxin/Hc Otic Jessica Bottle) 4 drop EAR-LEFT TID [facility] Ondansetron HCl (Ondansetron Hcl 4 Mg/2 Ml Vial) 4 mg IVPUSH Q8H PRN PRN Reason: Nausea and Vomiting Pharmacy Consult (Consult Rx Perform Med Rec) 1 each MISCELLANE ONCE PRN PRN Reason: Consult order Sodium Chloride (0.9 % Sodium Chloride Flush 3 Ml Syringe) 3 ml IVFLUSH QSHIFT [facility] Last Admin: 07/12/21 09:10 Dose: 3 ml Documented by: RITA Sodium Chloride (Sodium Chloride 0.65 % Nasal 44 Ml Sprbtl) 1 spray NOSTRIL-B Q4H PRN PRN Reason: Dry Nasal Passages Last Admin: 07/11/21 19:40 Dose: 1 spray Documented by: KEATON Tiotropium [place] (Tiotropium [place] 18 Mcg Cap.W.Dev) 1 puff INHALE RDAILY [facility] Labs CBC & Chem 7: 07/09/21 06:11 07/09/21 06:11 Assessment and Plan (1) Acute exacerbation of chronic obstructive airways disease: Status: Acute Plan 66-year-old female with past medical history of COPD, hypertension, anxiety presents the hospital with complaints of shortness of breath as well as vertigo Acute COPD exacerbation reports using 5L NC at baseline continue Solu-Medrol, DuoNeb p.r.n. as well as scheduled Home o2 eval Breoand spiriva added as per pulm Vertigo improving brain CT negative likely secondary to otitis media/TM perf started Neomycin PT rec STR Hallucinations initially thought to be hallucinating pt speaks to the holy spirit who told her that her heart will stop and she will go to sleep in the next 7 days seen by psych - feels that this is her way of praying and there is no need for medication/inpatient psych otitis media allergic to penicillins Neomycin dysuria UA negative hypertension continue diltiazem anxiety continue Ativan DVT prophylaxis: Shante Attending Dr. Zabala dispo - seen by PT rec STR when medically stable Requires ongoing inpatient hospitalization due to acute COPD exacerbation and need for IV steroids, nebulizer treatments Quality Stroke Does the patient have a stroke diagnosis?: No VTE Prior VTE?: No VTE Risk Level:: Medical - moderate - high VTE Device Contraindication: Treatment Not Indicated VTE Drug Contraindication: N/A - Med Ordered
[2021-07-12 11:02] LABS: VBG HCO3 46 mmol/L (22-26); VBG pCO2 78 mmHg; VBG pH 7.38 (7.32-7.43); VBG pO2 47 mmHg; Venous Blood Gas Refer to POC result
--- NOTE | 2021-07-12 11:50 | MHC.CM.PN ---
PER FIN[employer]CIAL SERVICES PT DOES NOT HAVE ANY [employer] PRODUCT.
--- NOTE | 2021-07-12 15:06 | MHC.CM.PN ---
CM CONTACTED PT'S AT NUMBER ON AT 11:35AM, PER BOTH HE AND PT ARE [employer] AND THEY BOTH SPEAK TO THE [employer], PT'S ON WAY IN TO VISIT. CM MET W/PT AND AT BEDSIDE TO DISCUSS BED OFFERS, BED OFFERS FROM [facility] AND [facility], BOTH PT AND IN AGREEMENT THAT OFFERING SNF'S ARE TOO FAR AND THEY PREFER TO TAKE PT HOME W/SERVICES. CM WILL SEND REFERRALS, NO PREFERENCE FROM PT/.
[2021-07-12] MEDS: Albuterol/Iprat 2.5/0.5MG 3 ML AMPUL.NEB INHALE (20:35)
[2021-07-12] MEDS: Enoxaparin Sodium 40 MG/0.4 ML SYRINGE SUBCUT (22:04)
[2021-07-12] MEDS: diphenhydrAMINE HCL 25 MG TABLET PO (22:11)
[2021-07-13] VITALS (8 sets, daily range): BP systolic 136–180; BP diastolic 72–93; PULSE 71–110; RESP 17–20; TEMP 36–36.5; O2SAT 93–100
[2021-07-13] MEDS: LORazepam 1 MG TABLET 2 MG PO ×3 (00:06→11:57)
[2021-07-13] MEDS: methylPREDNISolone Sod Succ 40 MG/ML VIAL IVPUSH ×2 (02:59→16:07)
[2021-07-13 04:43] LABS: Glucose, Whole Blood 139 mg/dL (60-115)
[2021-07-13 06:21] LABS: Hematocrit 39.9 % (37.0-47.0); Hemoglobin 12.3 g/dl (12.0-16.0); Mean Corpuscular HGB Conc 30.8 g/dl (31.0-35.0); Mean Corpuscular Hemoglobin 28.3 pg (27.0-33.0); Mean Corpuscular Volume 91.7 fL (80.0-98.0); Platelet Count 386 X10*3/uL (160-400); Red Blood Count 4.35 X10*6/uL (4.20-5.50); Red Cell Distribution Width 13.4 % (11.0-16.0); White Blood Count 12.4 X10*3/uL (4.8-10.8)
[2021-07-13 06:45] LABS: Anion Gap 10 (12-20); Blood Urea Nitrogen 18 mg/dL (9-16); Calcium 9.7 mg/dL (8.4-10.2); Chloride 93 mmol/L (96-108); Creatinine Clr Calc Pharmacy 75.3; Estimated Glomerular Filt Rate > 60; Glucose Random 129 mg/dL (60-115); Potassium 5.3 mmol/L (3.3-5.1); Sodium 142 mmol/L (135-145)
[2021-07-13 06:52] LABS: Carbon Dioxide 44 mmol/L (22-29)
[2021-07-13 08:30] LABS: VBG Base Excess 16.9 mmol/L; VBG HCO3 46 mmol/L (22-26); VBG pCO2 83 mmHg; VBG pH 7.35 (7.32-7.43); VBG pO2 56 mmHg
[2021-07-13 08:31] LABS: Venous Blood Gas Refer to POC result
[2021-07-13] MEDS: Fluticasone/Vilanterol 100/25 BLST.W.DEV 1 PUFF INHALE (08:52)
[2021-07-13] MEDS: Albuterol/Iprat 2.5/0.5MG 3 ML AMPUL.NEB INHALE ×3 (08:52→16:13)
[2021-07-13] MEDS: dilTIAZem HCL CD 180 MG CAP.ER.24H 360 MG PO (09:50)
[2021-07-13] MEDS: Sodium Zirconium Cyclosilicate 5 GM POWD.PACK PO (09:50)
[2021-07-13] MEDS: 0.9 % Sodium Chloride Flush 3 ML SYRINGE IVFLUSH ×2 (09:50→16:07)
[2021-07-13] MEDS: guaiFENesin LA 600 MG TAB.ER.12H PO (09:50)
[2021-07-13] MEDS: Butalb/Acetamin/Caff 50/325/40 TABLET PO (09:58)
--- NOTE | 2021-07-13 11:28 | HO.PM.IMPN ---
Subjective Subjective Date of Service: 07/13/21 Review of Systems seen and examined this morning follow up for COPD exacerbation feeling ok but saying she has not slept Physical Exam Vital Signs: Vital Signs: Last Vital Signs Temp 96.8 F 07/13/21 08:00 Pulse 72 07/13/21 08:58 Resp 20 07/13/21 08:58 BP 180/86 H 07/13/21 08:00 Pulse Ox 100 07/13/21 08:00 Oxygen Flow Rate 5 07/08/21 14:38 BMI result Body Mass Index 30.5 Appearing in no acute distress, anxiety lung sounds are clear to auscultation heart regular rate rhythm, clear S1, S2 positive bowel sounds, abdomen is soft, nontender neuro patient is alert x3, no focal deficits Objective Data Active Medications Acetaminophen (Acetaminophen 325 Mg Tablet) 650 mg PO Q6H PRN PRN Reason: Pain, Mild (Pain Scale 1-3) Last Admin: 07/11/21 05:14 Dose: 650 mg Documented by: JUAN ANTONIO Acetaminophen/Butalbital/Caffeine (Butalb/Acetamin/Caff 50/325/40 Tablet) 1 - 2 tab PO Q12H PRN PRN Reason: Headache Last Admin: 07/13/21 09:58 Dose: 2 tab Documented by: ALLIE Albuterol Sulfate (Albuterol Sulfate (0.083%) 2.5 Mg/3 Ml Vial.Neb) 2.5 mg INHALE Q6H PRN PRN Reason: shortness of breath/wheezing Albuterol/Ipratropium (Albuterol/Iprat 2.5/0.5mg 3 Ml Ampul.Neb) 3 ml INHALE RQ4H PRN PRN Reason: Shortness of Breath/Wheezing Last Admin: 07/09/21 06:30 Dose: 3 ml Documented by: BENIGNO Albuterol/Ipratropium (Albuterol/Iprat 2.5/0.5mg 3 Ml Ampul.Neb) 3 ml INHALE RQ4H WHILE AWAKE [facility] Last Admin: 07/13/21 08:52 Dose: 3 ml Documented by: REEMA Cefuroxime Axetil (Cefuroxime Axetil 500 Mg Tablet) 500 mg PO Q12H [facility] Last Admin: 07/13/21 10:59 Dose: Not Given Documented by: ALLIE Non-Admin Reason: Patient Refused Diltiazem HCl (Diltiazem Hcl Cd 180 Mg Cap.Er.24h) 360 mg PO DAILY [facility]; Protocol Last Admin: 07/13/21 09:50 Dose: 360 mg Documented by: ALLIE Docusate Sodium (Docusate Sodium 100 Mg Capsule) 100 mg PO DAILY PRN PRN Reason: Constipation Enoxaparin Sodium (Enoxaparin Sodium 40 Mg/0.4 Ml Syringe) 40 mg SUBCUT Q24H [facility] Last Admin: 07/12/21 22:04 Dose: 40 mg Documented by: ODRISMata Fluticasone/Vilanterol (Fluticasone/Vilanterol 100/25 Blst.W.Dev) 1 puff INHALE RDAILY [facility] Last Admin: 07/13/21 08:52 Dose: 1 puff Documented by: MARCOSSNOAM Guaifenesin (Guaifenesin [place] 600 Mg Tab.Er.12h) 600 mg PO BID [facility] Last Admin: 07/13/21 09:50 Dose: 600 mg Documented by: ALLIE Ipratropium [place] (Ipratropium [place] 1 Puff/17 Mcg Inhaler) 1 puff INHALE QID PRN PRN Reason: Wheezing Lorazepam (Lorazepam 1 Mg Tablet) 2 mg PO Q6H PRN PRN Reason: anxiety Last Admin: 07/13/21 06:01 Dose: 2 mg Documented by: KEATON Melatonin (Melatonin 3 Mg Tablet) 6 mg PO BEDTIME PRN PRN Reason: Sleep Methylprednisolone Sodium Succinate (Methylprednisolone Sod Succ 40 Mg/Ml Vial) 40 mg IVPUSH Q12H [facility] Last Admin: 07/13/21 02:59 Dose: 40 mg Documented by: KEATON Neomycin/Polymyxin/Hydrocortisone (Neomycin/Polymyxin/Hc Otic Jessica Bottle) 4 drop EAR-LEFT TID [facility] Last Admin: 07/13/21 09:51 Dose: Not Given Documented by: ALLIE Non-Admin Reason: Patient Refused Ondansetron HCl (Ondansetron Hcl 4 Mg/2 Ml Vial) 4 mg IVPUSH Q8H PRN PRN Reason: Nausea and Vomiting Pharmacy Consult (Consult Rx Perform Med Rec) 1 each MISCELLANE ONCE PRN PRN Reason: Consult order Sodium Chloride (0.9 % Sodium Chloride Flush 3 Ml Syringe) 3 ml IVFLUSH QSHIFT [facility] Last Admin: 07/13/21 09:50 Dose: 3 ml Documented by: ALLIE Sodium Chloride (Sodium Chloride 0.65 % Nasal 44 Ml Sprbtl) 1 spray NOSTRIL-B Q4H PRN PRN Reason: Dry Nasal Passages Last Admin: 07/11/21 19:40 Dose: 1 spray Documented by: ODRISM Tiotropium [place] (Tiotropium [place] 18 Mcg Cap.W.Dev) 1 puff INHALE RDAILY [facility] Last Admin: 07/13/21 08:52 Dose: 1 puff Documented by: REEMA Labs CBC & Chem 7: 07/13/21 05:38 07/13/21 05:38 Labs: Laboratory Results - last 24 hr 07/12/21 07/13/21 07/13/21 19:28 05:38 05:38 MCV 91.7 MCH 28.3 MCHC 30.8 L RDW 13.4 Plt Count 386 MPV 10.0 Absolute Nucleated RBC 0.000 Nucleated RBC % (auto) 0.0 VBG pH VBG pCO2 VBG pO2 VBG HCO3 VBG O2 Saturation VBG Base Excess Anion Gap 10 L Estim Creat Clear Calc 75.3 Estimated GFR > 60 POC Glucose 139 H Random Glucose 129 H Calcium 9.7 07/13/21 08:23 MCV MCH MCHC RDW Plt Count MPV Absolute Nucleated RBC Nucleated RBC % (auto) VBG pH 7.35 VBG pCO2 83 VBG pO2 56 VBG HCO3 46 H VBG O2 Saturation 84.0 VBG Base Excess 16.9 Anion Gap Estim Creat Clear Calc Estimated GFR POC Glucose Random Glucose Calcium Assessment and Plan (1) Acute exacerbation of chronic obstructive airways disease: Status: Acute Plan 66-year-old female with past medical history of COPD, hypertension, anxiety presents the hospital with complaints of shortness of breath as well as vertigo Acute COPD exacerbation reports using 5L NC at baseline but according to resp therapy she has not been associated with an oxygen company. She is currently 100% on 4 liters, it looks like she is insisting on 5 liters but she doesnt require it and in fact will likely be more harmful. Down to 3 liters now Order home o2 eval prior to dc continue Solu-Medrol, DuoNeb p.r.n. as well as scheduled Breo and spiriva added as per pulm VBG stable hyperkalemia one dose lokelma follow BMP Vertigo improving brain CT negative likely secondary to otitis media/TM perf started Neomycin PT rec STR but wants to take her home Hallucinations initially thought to be hallucinating pt speaks to the holy spirit who told her that her heart will stop and she will go to sleep in the next 7 days seen by psych - feels that this is her way of praying and there is no need for medication/inpatient psych otitis media allergic to penicillins Neomycin dysuria UA negative hypertension continue diltiazem anxiety continue Ativan DVT prophylaxis: Shante Attending Dr. Zabala dispo - seen by PT rec STR when medically stable Requires ongoing inpatient hospitalization due to acute COPD exacerbation and need for IV steroids, nebulizer treatments Quality Stroke Does the patient have a stroke diagnosis?: No VTE Prior VTE?: No VTE Risk Level:: Medical - moderate - high VTE Device Contraindication: Treatment Not Indicated VTE Drug Contraindication: N/A - Med Ordered
--- NOTE | 2021-07-13 13:50 | PM.DS ---
DS: Providers Provider Date of Service: 07/13/21 Date of admission: 07/08/21 22:31 Primary care physician: Mickey Guaman MD Consults: 07/09/21 10:51 Consult to Psychiatry Routine Consulting Provider: Psych Covering Reason for consultation: hallucinations, talking to god Has provider been notified: No 07/11/21 12:01 Consult to Pulmonology Routine Consulting Provider: Mary Aldridge Reason for consultation: SOB, COPD Has provider been notified: No Attending physician on discharge: Jamel Zabala Discharging clinician: Denise Ragsdale DS: Diagnosis Discharge Diagnosis (1) Acute exacerbation of chronic obstructive airways disease: Status: Acute DS: Summary Hospital Course Hospital Course: HP as per admitting provider 66-year-old female past medical history of anxiety, asthma, history of bronchitis, COPD, hypertension, presents to the hospital with complaints of shortness of breath.? Patient reports that her symptoms started about 2-3 days ago, associated with cough, with no sputum production.? Denies any fever or chills, but reports significant vertigo.? Patient reports that her vertigo also started about 2-3 days ago, worsened on her arrival to the ED. she is complaining of left ear hurting and feels that she has any infection.? Patient reports that she has a history of tympanic membrane perforation and gets ear infections regularly in the left ear.? She is also complaining of decreased urine output and burning when she pees for the past 2 days.? She denies any lower extremity edema, no abdominal pain nausea or vomiting, no diarrhea constipation, no chest pain, and no palpitations.? Patient uses 5 L of oxygen at baseline On arrival to the ED patient was found to have tachycardia, tachypnea, blood pressure on the higher and Labs are significant for WBC count 14.7, UA negative, Chest x-ray showed chronic blunting at the left costophrenic angle likely associated with prominent fat pad, no acute pulmonary findings head CT shows mild cerebral volume loss with chronic small-vessel ischemic changes with no acute intracranial process Abdominal pelvic CT shows no acute findings in the abdomen or pelvis, no hydronephrosis or nephrolithiasis, Patient will be admitted for further management Acute COPD exacerbation reports using 5L NC at baseline. She is currently 100% on 4 liters, it looks like she is insisting on 5 liters but she doesnt require it and in fact will likely be more harmful. Down to 3 liters now She declined home o2 evaluation treated initially with Solu-Medrol, DuoNeb p.r.n. as well as scheduled Breo and spiriva added as per pulm prednisone taper for 12 days hyperkalemia one dose lokelma and resolved Vertigo improved brain CT negative secondary to otitis media/TM perf started Neomycin PT rec STR but wants to take her home so she will be dc home and she can follow up with ENT Hallucinations initially thought to be hallucinating pt speaks to the holy spirit who told her that her heart will stop and she will go to sleep in the next 7 days seen by psych - feels that this is her way of praying and there is no need for medication/inpatient psych otitis media allergic to penicillins and declined to take any oral antibiotics Neomycin drops started, total 10 days dysuria UA negative hypertension continue diltiazem anxiety continue Ativan Time Spent with Patient Time attestation: Total time spent providing and/or coordinating discharge services: Discharge coordination time: Greater than 30 minutes Quality: Safe Use of Opioids Does Pt have an Active Cancer Diagnosis on the Problem List?: No Quality: Stroke Does the patient have a stroke diagnosis?: No Physical Exam Vital Signs: Vital Signs: Last Vital Signs Temp 97.0 F 07/13/21 11:26 Pulse 87 07/13/21 11:50 Resp 20 07/13/21 11:50 BP 164/72 H 07/13/21 11:26 Pulse Ox 97 07/13/21 11:26 Oxygen Flow Rate 5 07/08/21 14:38 BMI result Body Mass Index 30.5 Appearing in no acute distress head is normocephalic atraumatic eyes pupils are PERRLA sclera is anicteric mouth throat mucous membranes are intact and moist neck is supple no lymphadenopathy, no JVD noted lung sounds diminished heart regular rate rhythm, clear S1, S2 positive bowel sounds, abdomen is soft, nontender neuro patient is alert x3, no focal deficits DS: Data Data Completed and Pending Labs on day of discharge: Laboratory Results - last 24 hr 07/12/21 07/13/21 07/13/21 19:28 05:38 05:38 WBC 12.4 H RBC 4.35 Hgb 12.3 Hct 39.9 MCV 91.7 MCH 28.3 MCHC 30.8 L RDW 13.4 Plt Count 386 MPV 10.0 Absolute Nucleated RBC 0.000 Nucleated RBC % (auto) 0.0 VBG pH VBG pCO2 VBG pO2 VBG HCO3 VBG O2 Saturation VBG Base Excess Sodium 142 Potassium 5.3 H Chloride 93 L Carbon Dioxide 44 H* D Anion Gap 10 L BUN 18 H Creatinine 0.60 Estim Creat Clear Calc 75.3 Estimated GFR > 60 POC Glucose 139 H Random Glucose 129 H Calcium 9.7 07/13/21 08:23 WBC RBC Hgb Hct MCV MCH MCHC RDW Plt Count MPV Absolute Nucleated RBC Nucleated RBC % (auto) VBG pH 7.35 VBG pCO2 83 VBG pO2 56 VBG HCO3 46 H VBG O2 Saturation 84.0 VBG Base Excess 16.9 Sodium Potassium Chloride Carbon Dioxide Anion Gap BUN Creatinine Estim Creat Clear Calc Estimated GFR POC Glucose Random Glucose Calcium Preliminary micro results at discharge 07/08/21 16:54 Blood Culture - Preliminary Blood - Venous No growth after 48 hours. 07/08/21 16:52 Blood Culture - Preliminary Blood - Venous No growth after 48 hours. Discharge Plan Discharge Anticipated Discharge Date/Time: 07/13/21 13:50 Patient Disposition: Home, Self-Care Discharge Diagnosis: Acute COPD exacerbation Hyperkalemia Vertigo secondary to otitis media history of TM perforation Referrals: Name,MD Mickey [Primary Care Provider] - 1 Week Discharge Medications: New Spiriva with HandiHaler 18 mcg Capsule, W/Inhalation Device 18 mcg inhalation RDAILY Qty: 30 0RF pyqmjhaq-mdfvwfcom-EX 3.5-10,000-1 mg/mL-unit/mL-% Solution 4 drp otic (ear) left TID Qty: 10 0RF fluticasone furoate-vilanterol [Breo Ellipta] 100-25 mcg/dose Blister With Device 1 ea inhalation RDAILY Qty: 60 0RF prednisone 10 mg tablet See Taper mg PO DAILY Qty: 30 0RF Taper: Prednisone 40 mg daily for 3 Days and 0 Hour 30 mg daily for 3 Days and 0 Hour 20 mg daily for 3 Days and 0 Hour 10 mg daily for 3 Days and 0 Hour Continued albuterol sulfate 2.5 mg /3 mL (0.083 %) solution for nebulization 1 vial inhalation 6XD 0RF yuhpnpctkz-lnereseysvcrx-cpmj 50-325-40 mg tablet 1 - 2 tab PO Q12H PRN (Reason: Headache) 0RF diltiazem HCl 360 mg capsule,extended release 24 hr 1 cap PO DAILY 0RF lorazepam 2 mg tablet 1 tab PO Q6H PRN (Reason: anxiety) 0RF Atrovent HFA 17 mcg/actuation Hfa Aerosol Inhaler 1 puff INHALATION QID PRN (Reason: Wheezing) 0RF acetaminophen [Tylenol] 325 mg Capsule 325 mg PO QID PRN (Reason: Pain) 0RF Discharge Orders: Discharge Order (Routine); Ordered 07/13/21 Ordered By: Denise Ragsdale Diet: advance to usual diet Activity on Discharge: As tolerated Stand Alone Forms: Patient Portal Discharge page Care Plan Goals: complete resolution of symptoms Health Concerns: Acute COPD exacerbation Hyperkalemia Vertigo secondary to otitis media history of TM perforation Plan of Treatment: Continue with [facility] for oxygen supply Follow-up with primary care provider as needed Take all medications as prescribed Assessment: see discharge summary
--- NOTE | 2021-07-13 15:01 | MHC.CM.PN ---
IMM07/13/21 FEMALE 66 DX COPD EXACERBATION SHE IS DC TODAY TO HOME WITH SERVICE. PREFERENCES OBTAINED REFERRAL SENT TO [facility]. THEY WILL PROVIDE HOME SERVICES. TRANSPORTATION HAS BEEN BOOKED 5PM PICK TO HOME.
--- NOTE | 2021-07-13 15:15 | P.F2F_ITS ---
Service Date Service Date: 07/13/21 Encounter Date of encounter: 07/13/21 Reasons for Services Signs and symptoms assessed: COPD, weakness Reason for retirement: CV/CP assess and/or care Homebound: Leaving the home is medically contraindicated at this time without the asist of a device and/or another person due th the listed conditions above and below. Reason homebound: unsteady gait / fall risk and weakness related to hospital stay Certification: Based on the above findings, I certify that this patient is confined to the home and needs intermittent retirement care, physical therapy and/or speech therapy, or continues to need occupational therapy. The patient is under my care, and I have initiated the establishment of the plan of care. The patient will be followed by a physician who will periodically review the plan of care.
[2021-07-13] MEDS: Butalb/Acetamin/Caff 50/325/40 TABLET 1 TAB PO (16:07)
== END 2021-07-13 17:28 | disposition home health service (06) | DRG 191 ==
LOC: HO.ED 21:01 → HO.EDOVER 23:04 → HO.S3 07-09 11:54
PROVIDERS: Hospitalist; Physician Assistant; Admitting Provider Internal Medicine; Emergency Provider Student in an Organized Health Care Education/Training Program; PCP Internal Medicine Geriatric Medicine; Visit Provider Nurse Practitioner Acute Care
DX: J43.9 Emphysema, unspecified (principal); J96.10 Chronic respiratory failure, unspecified whether with hypoxia or hypercapnia; F41.9 Anxiety disorder, unspecified; I10 Essential (primary) hypertension; H66.92 Otitis media, unspecified, left ear; R30.0 Dysuria; E87.5 Hyperkalemia; Z99.81 Dependence on supplemental oxygen; Z20.822 Contact with and (suspected) exposure to COVID-19; Z87.891 Personal history of nicotine dependence; Z88.0 Allergy status to penicillin; Z88.2 Allergy status to sulfonamides; Z88.5 Allergy status to narcotic agent; Z79.51 Long term (current) use of inhaled steroids; Z79.52 Long term (current) use of systemic steroids; Z79.899 Other long term (current) drug therapy
CPT/HCPCS: 36415; 51798; 70450; 71045; 74176; 80048; 80076; 81001; 82803; 82947; 83605; 83690; 83735; 83880; 84484; 85025; 85027; 87040; 87502; 87635; 93005; 94640; 96361; 96365; 96366; 96375; 97162; 99285; J0456; J1200; J1650; J2060; J2920; J2930; J3475; Q0163

== ENCOUNTER 2021-08-26 22:35 | Inpatient (IN) | payer MEDICARE, SELFPAY ==
--- NOTE | ~2021-08-26 | XR_ITS ---
EXAMINATION: XR CHEST CLINICAL INFORMATION: Pain COMPARISON: 07/08/2021 TECHNIQUE: Frontal view of the chest was obtained. FINDINGS: The lungs are hyperinflated, suggesting underlying COPD. No acute consolidation is seen. No evidence of pneumothorax, significant pleural effusion, or pulmonary edema. The cardiomediastinal contour is unremarkable. No acute osseous findings are seen. XR/XR chest 1V IMPRESSION: Hyperinflated lungs suggesting COPD, without acute findings.
--- NOTE | ~2021-08-26 | CT_ITS ---
EXAMINATION: CT HEAD WITHOUT CONTRAST CLINICAL INFORMATION: Headache. COMPARISON: Most recent CT head dated 07/08/2021. TECHNIQUE: Contiguous axial imaging was performed from the skull base to vertex without intravenous administration of contrast. This CT examination was performed using dose optimization techniques as appropriate, variously including the following: *Automated exposure control *Adjustment of mA and/or kV according to patient size (this includes techniques or standardized protocols for targeted exams where dose is matched to indication/reason for exam; i.e. extremities or head) *Use of iterative reconstruction technique DLP: 690 mGy-cm FINDINGS: There is no evidence of acute intracranial hemorrhage or territorial infarction. No abnormal mass effect or midline shift is seen. [place] to white matter differentiation is well preserved. No extra-axial fluid collections are identified. Mild prominence of the ventricles and sulci, unchanged. Hypoattenuation of the periventricular white matter, unchanged. The osseous structures and soft tissues are normal. The mastoid air cells and visualized portions of the paranasal sinuses are well aerated. CT/CT head/brain wo con IMPRESSION: No acute intracranial hemorrhage or mass effect. Mild diffuse atrophy and chronic microvascular ischemic disease appears unchanged.
--- NOTE | 2021-08-26 22:41 | ECG_ITS ---
Test Reason : DYSPNEA Blood Pressure : / mmHG Vent. Rate : 101 BPM Atrial Rate : 101 BPM P-R Int : 152 ms QRS Dur : 078 ms QT Int : 336 ms P-R-T Axes : -26 007 -14 degrees QTc Int : 435 ms Poor data quality, interpretation may be adversely affected Sinus tachycardia with Premature atrial complexes Otherwise normal ECG When compared with ECG of 08-JUL-2021 16:05, Premature atrial complexes are now Present T wave inversion now evident in Inferior leads Referred By: Rani Quintero Electronically Signed By:Jose Petersen
[2021-08-26 22:43] VITALS: BP 124/60; BP 154/66; PULSE 80; PULSE 92; RESP 20; TEMP 37; O2SAT 92; O2SAT 98; BMI 28.8
--- NOTE | 2021-08-26 22:44 | ED.CHESTPAIN ---
HPI - Chest Pain General Chief Complaint: Dyspnea Stated Complaint: Cp/sob Time Seen by Provider: 08/26/21 22:40 Source: patient and old records reviewed Mode of arrival: EMS Limitations: no limitations History of Present Illness HPI narrative: 66 yo female with hx of COPD O2 dependent, HTN, emphysema, chronic TM perforation with chronic ear infections comes in with L sided chest pain that is stabbing and intermittent since Monday she notes it woke her from sleep. The patient states it has progressively worsened and tonight she couldn't take it. EMS was called - given neb, steroids, aspirin prior to arrival. The patient states she knows she had a heart attack on Monday MD complaint: chest pain Pertinent past history: prior DC Onset (ago): day(s) (Monday ) Timing of current episode: episodic and increasing Prior episodes: Yes Onset: during rest Pain location: left chest Pain radiation: left arm Severity: moderate Quality: heaviness Relieving factors: nothing Exacerbating factors: inspiration and movement Associated symptoms: dyspnea and cough Treatment prior to arrival: aspirin (324mg ) and other (125mg solumedrol and duoneb) Related Data Home Medications Medication Instructions Recorded Confirmed albuterol sulfate 2.5 mg/3 mL 1 vial inhalation 6XD 10/04/20 07/08/21 (0.083 %) solution for nebulization vjxawuiqmj-mjxtjqqrdsoyn-joihueyl 1 - 2 tab PO Q12H PRN Headache 10/04/20 07/08/21 50 mg-325 mg-40 mg tablet acetaminophen 325 mg capsule 325 mg PO QID PRN Pain 07/08/21 07/08/21 (Tylenol) diltiazem HCl 360 mg capsule,24 1 cap PO DAILY 07/08/21 07/08/21 hr,extended release ipratropium bromide 17 1 puff inhalation QID PRN Wheezing 07/08/21 07/08/21 mcg/actuation HFA aerosol inhaler (Atrovent HFA) lorazepam 2 mg tablet 1 tab PO Q6H PRN anxiety 07/08/21 07/08/21 Previous Rx's Medication Instructions Recorded fluticasone furoate 100 1 ea inhalation RDAILY #60 ea 07/13/21 mcg-vilanterol 25 mcg/dose inhalation powder (Breo Ellipta) jrjriahb-lsapacrji-hcruscozx 3.5 4 drp otic (ear) left TID #10 mL 07/13/21 mg/mL-10,000 unit/mL-1 % ear solution prednisone 10 mg tablet See Taper PO DAILY #30 tabs 07/13/21 tiotropium bromide 18 mcg capsule 18 mcg inhalation RDAILY #30 07/13/21 with inhalation device (Spiriva inhalations with HandiHaler) Allergies Allergy/AdvReac Type Severity Reaction Status Date / Time morphine [MORPHINE] Allergy Severe HIVES, Verified 10/04/20 22:39 high temp, nausea tetracycline [TETRACYCLINE] Allergy Severe VOMITING Verified 10/04/20 22:39 tramadol [TRAMADOL] Allergy Severe SWEATING, Verified 10/04/20 22:39 VOMITING, vomiting amoxicillin [From AUGMENTIN] AdvReac Severe CONSTIPATIO Verified 10/04/20 22:39 N clavulanic acid AdvReac Severe CONSTIPATIO Verified 10/04/20 22:39 [From AUGMENTIN] N codeine [CODEINE] AdvReac Severe NAUSEA Verified 10/04/20 22:39 levofloxacin [From LEVAQUIN] AdvReac Severe CONSTIPATIO Verified 10/04/20 22:39 N Sulfa(Sulfonamide Allergy Unknown Unknown Uncoded 10/04/20 22:39 Antibiotics) Review of Systems Review of Systems: Constitutional : No Weight loss, No Fever, No Chills ENT/Mouth : No sore throat, No Rhinorrhea Eyes: No Eye Pain, No Swelling Cardiovascular : pos Chest Pain, pos SOB, no Dyspnea on Exertion, No Orthopnea, No Edema, No Palpitations Respiratory : pos Cough, pos Sputum Gastrointestinal : no Nausea, No Vomiting, No Diarrhea, No abdominal Pain, No Hematochezia, No Melena Genitourinary : No Dysuria, No Urinary Frequency Musculoskeletal : No joint pain, No Myalgias, No Joint Swelling Skin : No Skin Lesions, No rash Neuro : No Weakness, No Numbness, No Dizziness, No Headache Psych : No Anxiety/Panic, No Depression Heme/Lymph: No Bruising, No Lymphadenopathy Endocrine : No Polyuria, No Polydipsia All other systems reviewed and are negative PMFSH Past Medical History Attestation statement: The following information was validated with the patient. Medical History Anxiety Asthma Bronchitis Chronic respiratory failure COPD (chronic obstructive pulmonary disease) Diverticulitis Dizziness Emphysema lung Hypertension Otitis media Vertigo Surgical History History of breast surgery History of laparotomy Family History Family History (Updated 07/09/21 @ 06:08 by Callie Mccallum MD) Other No family history of coronary artery disease Social History Social History Household Members: Spouse Housing: Other Housing Other:: motel Do you presently have visiting nurse or other home services: No Alcohol intake: current Alcohol intake frequency: 0-2 drinks per day Patient Tobacco Use Status: Former Tobacco user Advance Directives: No Advance Directives Information Provided: No service: No Physical Exam Vital Signs: Vital Signs: Last Vital Signs Temp 98.6 F 08/26/21 22:49 Pulse 96 08/26/21 23:18 Resp 20 08/26/21 23:18 BP 132/55 L 08/26/21 23:18 Pulse Ox 99 08/26/21 23:18 O2 Del Method 08/26/21 23:18 O2 Flow Rate 4.5 08/26/21 22:49 Oxygen Flow Rate 4.5 08/26/21 22:43 BMI result Body Mass Index 28.8 Appearance: Alert. Oriented X3. No acute distress. Eyes: Pupils equal, round and reactive to light. ENT: Pharynx normal. Neck: Normal inspection. Neck supple. CVS: Normal heart rate and rhythm. Pulses normal. Respiratory: No respiratory distress. Breath sounds very diminished throughout Abdomen: Soft and nontender. Skin: Skin warm and dry. Normal skin color. Normal skin turgor. Extremities: No lower extremity edema. No calf ttp Neuro: Oriented X 3. No motor deficit. No sensory deficit. Course Course Course Narrative: still wheezing and tight feels like she cannot breathe will admit MDM - Chest Pain MDM Narrative Medical decision making narrative: 66 yo female with hx of COPD O2 dependent, HTN, emphysema, chronic TM perforation with chronic ear infections presents with L sided chest pain - she states she knows she had a heart attack on Monday. At this time will need repeat neb 5mg albuterol ordered, already given ASA. Labs, CXR, EKG, troponin and ddimer ordered. Dispo per results and findings. Lab Data Result diagrams: 08/26/21 23:03 08/26/21 23:03 Labs: Lab Results 08/26/21 08/26/21 08/26/21 Range/Units 23:03 23:03 23:03 WBC 8.6 (4.8-10.8) X10*3/uL RBC 3.84 L (4.20-5.50) X10*6/uL Hgb 11.2 L (12.0-16.0) g/dl Hct 35.0 L (37.0-47.0) % MCV 91.1 (80.0-98.0) fL MCH 29.2 (27.0-33.0) pg MCHC 32.0 (31.0-35.0) g/dl RDW 14.9 (11.0-16.0) % Plt Count 289 D (160-400) X10*3/uL MPV 8.7 L (9.4-12.3) fL Immature Gran % (Auto) 0.2 (0.0-0.4) % Neut % (Auto) 60.4 (45-73) % Lymph % (Auto) 27.8 (20-40) % [place] % (Auto) 9.4 (2-11) % Eos % (Auto) 1.9 (0-4) % Baso % (Auto) 0.3 (0-2) % Lymph # (Auto) 2.4 (1.2-4.9) X10*3/uL [place] # (Auto) 0.8 (0.1-1.2) X10*3/uL Eos # (Auto) 0.2 (0.0-0.4) X10*3/uL Baso # (Auto) 0.0 (0.0-0.2) X10*3/uL Abs Immat Gran (auto) 0.02 (0.00-0.03) X10*3/uL Absolute Neuts (auto) 5.2 (2.0-8.3) x10*3/uL Absolute Nucleated RBC 0.000 (0.0-0.012) X10*3/uL Nucleated RBC % (auto) 0.0 (0.0-0.2) /100WBC D-Dimer High Sensitivty NG/ML Sodium 143 (135-145) mmol/L Potassium 4.1 D (3.3-5.1) mmol/L Chloride 100 (96-108) mmol/L Carbon Dioxide 35 H (22-29) mmol/L Anion Gap 12 (12-20) BUN 16 (9-16) mg/dL Creatinine 0.60 (0.5-1.4) mg/dL Estim Creat Clear Calc 73.1 Estimated GFR > 60 Random Glucose 139 H (60-115) mg/dL Lactic Acid (0.5-2.0) mmol/L Calcium 9.6 (8.4-10.2) mg/dL Magnesium 2.1 (1.6-2.6) mg/dL Total Bilirubin 0.2 (0.0-1.0) mg/dL Direct Bilirubin < 0.2 (0.0-0.5) mg/dL AST 20 (5-31) U/L ALT 20 (0-31) U/L Alkaline Phosphatase 87 (39-117) U/L Troponin I High Sens (<3.5-17.0) ng/L B-Natriuretic Peptide 14 (<100) pg/mL Total Protein 7.3 (6.5-8.0) g/dL Albumin 4.4 (3.5-5.0) g/dL Lipase 10 (8-78) U/L COVID-19 (SEAN) (Negative) COVID-19 Clin Com 08/26/21 08/26/21 08/26/21 Range/Units 23:03 23:03 23:03 WBC (4.8-10.8) X10*3/uL RBC (4.20-5.50) X10*6/uL Hgb (12.0-16.0) g/dl Hct (37.0-47.0) % MCV (80.0-98.0) fL MCH (27.0-33.0) pg MCHC (31.0-35.0) g/dl RDW (11.0-16.0) % Plt Count (160-400) X10*3/uL MPV (9.4-12.3) fL Immature Gran % (Auto) (0.0-0.4) % Neut % (Auto) (45-73) % Lymph % (Auto) (20-40) % [place] % (Auto) (2-11) % Eos % (Auto) (0-4) % Baso % (Auto) (0-2) % Lymph # (Auto) (1.2-4.9) X10*3/uL [place] # (Auto) (0.1-1.2) X10*3/uL Eos # (Auto) (0.0-0.4) X10*3/uL Baso # (Auto) (0.0-0.2) X10*3/uL Abs Immat Gran (auto) (0.00-0.03) X10*3/uL Absolute Neuts (auto) (2.0-8.3) x10*3/uL Absolute Nucleated RBC (0.0-0.012) X10*3/uL Nucleated RBC % (auto) (0.0-0.2) /100WBC D-Dimer High Sensitivty < 150 NG/ML Sodium (135-145) mmol/L Potassium (3.3-5.1) mmol/L Chloride (96-108) mmol/L Carbon Dioxide (22-29) mmol/L Anion Gap (12-20) BUN (9-16) mg/dL Creatinine (0.5-1.4) mg/dL Estim Creat Clear Calc Estimated GFR Random Glucose (60-115) mg/dL Lactic Acid 0.7 (0.5-2.0) mmol/L Calcium (8.4-10.2) mg/dL Magnesium (1.6-2.6) mg/dL Total Bilirubin (0.0-1.0) mg/dL Direct Bilirubin (0.0-0.5) mg/dL AST (5-31) U/L ALT (0-31) U/L Alkaline Phosphatase (39-117) U/L Troponin I High Sens (<3.5-17.0) ng/L B-Natriuretic Peptide (<100) pg/mL Total Protein (6.5-8.0) g/dL Albumin (3.5-5.0) g/dL Lipase (8-78) U/L COVID-19 (SEAN) Negative (Negative) COVID-19 Clin Com See Note 08/26/21 Range/Units 23:03 WBC (4.8-10.8) X10*3/uL RBC (4.20-5.50) X10*6/uL Hgb (12.0-16.0) g/dl Hct (37.0-47.0) % MCV (80.0-98.0) fL MCH (27.0-33.0) pg MCHC (31.0-35.0) g/dl RDW (11.0-16.0) % Plt Count (160-400) X10*3/uL MPV (9.4-12.3) fL Immature Gran % (Auto) (0.0-0.4) % Neut % (Auto) (45-73) % Lymph % (Auto) (20-40) % [place] % (Auto) (2-11) % Eos % (Auto) (0-4) % Baso % (Auto) (0-2) % Lymph # (Auto) (1.2-4.9) X10*3/uL [place] # (Auto) (0.1-1.2) X10*3/uL Eos # (Auto) (0.0-0.4) X10*3/uL Baso # (Auto) (0.0-0.2) X10*3/uL Abs Immat Gran (auto) (0.00-0.03) X10*3/uL Absolute Neuts (auto) (2.0-8.3) x10*3/uL Absolute Nucleated RBC (0.0-0.012) X10*3/uL Nucleated RBC % (auto) (0.0-0.2) /100WBC D-Dimer High Sensitivty NG/ML Sodium (135-145) mmol/L Potassium (3.3-5.1) mmol/L Chloride (96-108) mmol/L Carbon Dioxide (22-29) mmol/L Anion Gap (12-20) BUN (9-16) mg/dL Creatinine (0.5-1.4) mg/dL Estim Creat Clear Calc Estimated GFR Random Glucose (60-115) mg/dL Lactic Acid (0.5-2.0) mmol/L Calcium (8.4-10.2) mg/dL Magnesium (1.6-2.6) mg/dL Total Bilirubin (0.0-1.0) mg/dL Direct Bilirubin (0.0-0.5) mg/dL AST (5-31) U/L ALT (0-31) U/L Alkaline Phosphatase (39-117) U/L Troponin I High Sens < 3.5 (<3.5-17.0) ng/L B-Natriuretic Peptide (<100) pg/mL Total Protein (6.5-8.0) g/dL Albumin (3.5-5.0) g/dL Lipase (8-78) U/L COVID-19 (SEAN) (Negative) COVID-19 Clin Com ECG Data ECG #1: Attestation: I personally reviewed and interpreted this ECG as follows: ECG interpretation date: 08/26/21 ECG interpretation time: 22:59 Interpretation: Rate: 101 Rhythm: sinus tachycardia Roll: normal Normal P waves. Normal CRUZ. Normal QRS complex. ST T wave : non KIYA, nonspecific qTC: normal prior studies: no acute ischemia, artifact The study has been interpreted contemporaneously by me. . Discharge Plan Discharge Clinical Impression: Acute exacerbation of chronic obstructive airways disease Patient Disposition: Admitted As Inpatient Prescriptions: No Action albuterol sulfate 2.5 mg /3 mL (0.083 %) solution for nebulization 1 vial inhalation 6XD qzltrzlzze-mhptgvtfmjsua-fvra 50-325-40 mg tablet 1 - 2 tab PO Q12H PRN (Reason: Headache) diltiazem HCl 360 mg capsule,extended release 24 hr 1 cap PO DAILY lorazepam 2 mg tablet 1 tab PO Q6H PRN (Reason: anxiety) Atrovent HFA 17 mcg/actuation Hfa Aerosol Inhaler 1 puff INHALATION QID PRN (Reason: Wheezing) acetaminophen [Tylenol] 325 mg Capsule 325 mg PO QID PRN (Reason: Pain) Spiriva with HandiHaler 18 mcg Capsule, W/Inhalation Device 18 mcg inhalation RDAILY Qty: 30 0RF uugqfklv-kjwwxeipa-IO 3.5-10,000-1 mg/mL-unit/mL-% Solution 4 drp otic (ear) left TID Qty: 10 0RF fluticasone furoate-vilanterol [Breo Ellipta] 100-25 mcg/dose Blister With Device 1 ea inhalation RDAILY Qty: 60 0RF prednisone 10 mg tablet See Taper PO DAILY Qty: 30 0RF Taper: Prednisone 40 mg daily for 3 Days and 0 Hour 30 mg daily for 3 Days and 0 Hour 20 mg daily for 3 Days and 0 Hour 10 mg daily for 3 Days and 0 Hour
[2021-08-26 22:49] VITALS: BP 154/66; PULSE 106; RESP 20; TEMP 37; O2SAT 96
[2021-08-26 22:54] VITALS: PULSE 98; RESP 30; O2SAT 96
[2021-08-26] MEDS: Albuterol Sulfate (0.083%) 2.5 MG/3 ML VIAL.NEB 5 MG INHALE (22:54)
[2021-08-26 23:11] LABS: Basophils Percent Auto 0.3 % (0-2); Eosinophils Absolute Auto 0.2 X10*3/uL (0.0-0.4); Eosinophils Percent Auto 1.9 % (0-4); Hemoglobin 11.2 g/dl (12.0-16.0); Imm Gran Abs Auto 0.02 X10*3/uL (0.00-0.03); Imm Gran Pct Auto 0.2 % (0.0-0.4); Lymphocytes Absolute Auto 2.4 X10*3/uL (1.2-4.9); Lymphocytes Percent Auto 27.8 % (20-40); MANUAL DIFF FLAG NO; Mean Corpuscular Hemoglobin 29.2 pg (27.0-33.0); Mean Corpuscular Volume 91.1 fL (80.0-98.0); Mean Platelet Volume 8.7 fL (9.4-12.3); Monocytes Absolute Auto 0.8 X10*3/uL (0.1-1.2); Monocytes Percent Auto 9.4 % (2-11); Neutrophils Absolute Auto 5.2 x10*3/uL (2.0-8.3); Neutrophils Percent Auto 60.4 % (45-73); Platelet Count 289 X10*3/uL (160-400); Red Blood Count 3.84 X10*6/uL (4.20-5.50); Red Cell Distribution Width 14.9 % (11.0-16.0); White Blood Count 8.6 X10*3/uL (4.8-10.8)
[2021-08-26 23:18] VITALS: BP 132/55; PULSE 96; RESP 20; O2SAT 99
[2021-08-26 23:23] LABS: COVID-19 Test Negative (Negative)
[2021-08-26 23:24] LABS: Lactic Acid 0.7 mmol/L (0.5-2.0)
[2021-08-26 23:30] LABS: Alanine Aminotransferase 20 U/L (0-31); Albumin Level 4.4 g/dL (3.5-5.0); Alkaline Phosphatase 87 U/L (39-117); Anion Gap 12 (12-20); Aspartate Amino Transferase 20 U/L (5-31); Bilirubin Direct < 0.2 mg/dL (0.0-0.5); Bilirubin Total 0.2 mg/dL (0.0-1.0); Blood Urea Nitrogen 16 mg/dL (9-16); Calcium 9.6 mg/dL (8.4-10.2); Carbon Dioxide 35 mmol/L (22-29); Chloride 100 mmol/L (96-108); Creatinine Clr Calc Pharmacy 73.1; Estimated Glomerular Filt Rate > 60; Glucose Random 139 mg/dL (60-115); Lipase 10 U/L (8-78); Magnesium 2.1 mg/dL (1.6-2.6); Potassium 4.1 mmol/L (3.3-5.1); Sodium 143 mmol/L (135-145); Total Protein 7.3 g/dL (6.5-8.0)
[2021-08-26 23:34] LABS: D Dimer High Sensitivity < 150 NG/ML
[2021-08-26 23:36] LABS: B Type Natriuretic Peptide 14 pg/mL (<100)
[2021-08-26 23:37] LABS: Troponin-I High Sensitivity < 3.5 ng/L (<3.5-17.0)
[2021-08-27] VITALS (7 sets, daily range): BP systolic 113–144; BP diastolic 51–78; PULSE 72–118; RESP 13–24; TEMP 36.7–36.9; O2SAT 96–98
--- NOTE | 2021-08-27 00:22 | P.HPHOSP_ITS ---
History of Present Illness Date of Service: 08/27/21 Chief Complaint: SOB 66-year-old female with a past medical history of hypertension, hyperlipidemia, asthma/COPD, chronic respiratory failure on 4 L of home oxygen, vertigo, migraine headaches, tympanic membrane perforation, chronic ear infection; presented to the hospital today with a chief complaint of shortness of breath. Patient reports that for the past 2 days she has been having shortness of breath; mentions that she has very tight like rock and has not been able to breathe a. Reports she is also having cough with whitish sputum production. Mentioned that she uses 4 L of home oxygen [id number]. She tried home inhalers with no significant improvement, subsequently came to the ER for further evaluation. Patient denies any fevers. Denies any recent travel or sick contacts. Patient also reported chest pain, nonradiating. Currently improved at the time of my interview. Reports he has history of migraines, mention she had headache without any blurry vision. Review of all other systems is negative except mentioned above ER course: Per ER team patient's EKG was nonischemic, saved troponins were negative; reportedly EMS noted that the patient has diminished breath sounds; given Solu- Medrol and nebulizers. Admitted to the hospital for acute COPD exacerbation. [facility] Medical History (Updated 09/06/21 @ 13:59 by Brittany Maddox) Anxiety Asthma Bronchitis Chronic respiratory failure COPD (chronic obstructive pulmonary disease) Diverticulitis Dizziness Emphysema lung Hypertension Otitis media Vertigo Family History Other No family history of coronary artery disease Pertinent family history: Reviewed; Surgical History History of breast surgery History of laparotomy Social History Household Members: Spouse Housing: Other Housing Other:: motel. Do you presently have visiting nurse or other home services: No Alcohol intake: current Alcohol intake frequency: 0-2 drinks per day Patient Tobacco Use Status: Never used Tobacco service: No Current occupational status: disabled Meds Allergies Allergy/AdvReac Type Severity Reaction Status Date / Time morphine [MORPHINE] Allergy Severe HIVES, Verified 10/04/20 22:39 high temp, nausea tetracycline [TETRACYCLINE] Allergy Severe VOMITING Verified 10/04/20 22:39 tramadol [TRAMADOL] Allergy Severe SWEATING, Verified 10/04/20 22:39 VOMITING, vomiting amoxicillin [From AUGMENTIN] AdvReac Severe CONSTIPATIO Verified 10/04/20 22:39 N clavulanic acid AdvReac Severe CONSTIPATIO Verified 10/04/20 22:39 [From AUGMENTIN] N codeine [CODEINE] AdvReac Severe NAUSEA Verified 10/04/20 22:39 levofloxacin [From LEVAQUIN] AdvReac Severe CONSTIPATIO Verified 10/04/20 22:39 N Sulfa(Sulfonamide Allergy Unknown Unknown Uncoded 10/04/20 22:39 Antibiotics) Active Medications: Current Medications Ceftriaxone Sodium 1 gm/ (Sodium Chloride) 50 mls @ 100 mls/hr IV ONCE ONE Stop: 08/27/21 00:42 Home Medications Medication Instructions Recorded Confirmed Last Taken Type albuterol sulfate 2.5 mg/3 mL 1 vial inhalation 6XD 10/04/20 09/03/21 07/08/21 History (0.083 %) solution for nebulization nxplzdhczm-gjwbgbinfifon-proaqstk 1 - 2 tab PO Q12H PRN Headache 10/04/20 09/03/21 07/08/21 History 50 mg-325 mg-40 mg tablet diltiazem HCl 360 mg capsule,24 1 cap PO DAILY 07/08/21 09/03/21 07/08/21 History hr,extended release lorazepam 2 mg tablet 1 tab PO Q6H PRN anxiety 07/08/21 09/03/21 07/08/21 History tiotropium bromide 18 mcg capsule 1 cap inhalation DAILY 08/27/21 09/03/21 Unknown History with inhalation device (Spiriva with HandiHaler) ipratropium bromide 0.02 % 2.5 ml inhalation Q6H PRN wheezing 09/03/21 09/03/21 Unknown History solution for inhalation Physical Exam Vital Signs and Narrative: Vital Signs: Last Vital Signs Temp 98.6 F 08/26/21 22:49 Pulse 96 08/26/21 23:18 Resp 20 08/26/21 23:18 BP 132/55 L 08/26/21 23:18 Pulse Ox 99 08/26/21 23:18 O2 Del Method 08/26/21 23:18 O2 Flow Rate 4.5 08/26/21 22:49 Oxygen Flow Rate 4.5 08/26/21 22:43 BMI result Body Mass Index 28.8 Gen: Appears be in no acute distress; on supplemental oxygen. Speaks in full sentences. HEENT: NCAT, Moist mucosa. Pulmonary: Diminished breath sounds bilaterally. CVS: Normal S1-S2 Abdomen: BS+, Soft, Nontender Extremities: Warm well perfused Neuro: Alert and awake. Grossly nonfocal Results Labs CBC and Chem 7: 08/27/21 06:18 08/27/21 06:18 Labs: Laboratory Results - last 24 hr 08/26/21 08/26/21 08/26/21 23:03 23:03 23:03 MCV 91.1 MCH 29.2 MCHC 32.0 RDW 14.9 Plt Count 289 D MPV 8.7 L Immature Gran % (Auto) 0.2 Neut % (Auto) 60.4 Lymph % (Auto) 27.8 [place] % (Auto) 9.4 Eos % (Auto) 1.9 Baso % (Auto) 0.3 Lymph # (Auto) 2.4 [place] # (Auto) 0.8 Eos # (Auto) 0.2 Baso # (Auto) 0.0 Abs Immat Gran (auto) 0.02 Absolute Neuts (auto) 5.2 Absolute Nucleated RBC 0.000 Nucleated RBC % (auto) 0.0 D-Dimer High Sensitivty Anion Gap 12 Estim Creat Clear Calc 73.1 Estimated GFR > 60 Random Glucose 139 H Lactic Acid Calcium 9.6 Magnesium 2.1 Total Bilirubin 0.2 Direct Bilirubin < 0.2 AST 20 ALT 20 Alkaline Phosphatase 87 Troponin I High Sens B-Natriuretic Peptide 14 Total Protein 7.3 Albumin 4.4 Lipase 10 COVID-19 (SEAN) COVID-19 Clin Com 08/26/21 08/26/21 08/26/21 23:03 23:03 23:03 MCV MCH MCHC RDW Plt Count MPV Immature Gran % (Auto) Neut % (Auto) Lymph % (Auto) [place] % (Auto) Eos % (Auto) Baso % (Auto) Lymph # (Auto) [place] # (Auto) Eos # (Auto) Baso # (Auto) Abs Immat Gran (auto) Absolute Neuts (auto) Absolute Nucleated RBC Nucleated RBC % (auto) D-Dimer High Sensitivty < 150 Anion Gap Estim Creat Clear Calc Estimated GFR Random Glucose Lactic Acid 0.7 Calcium Magnesium Total Bilirubin Direct Bilirubin AST ALT Alkaline Phosphatase Troponin I High Sens B-Natriuretic Peptide Total Protein Albumin Lipase COVID-19 (SEAN) Negative COVID-19 Clin Com See Note 08/26/21 23:03 MCV MCH MCHC RDW Plt Count MPV Immature Gran % (Auto) Neut % (Auto) Lymph % (Auto) [place] % (Auto) Eos % (Auto) Baso % (Auto) Lymph # (Auto) [place] # (Auto) Eos # (Auto) Baso # (Auto) Abs Immat Gran (auto) Absolute Neuts (auto) Absolute Nucleated RBC Nucleated RBC % (auto) D-Dimer High Sensitivty Anion Gap Estim Creat Clear Calc Estimated GFR Random Glucose Lactic Acid Calcium Magnesium Total Bilirubin Direct Bilirubin AST ALT Alkaline Phosphatase Troponin I High Sens < 3.5 B-Natriuretic Peptide Total Protein Albumin Lipase COVID-19 (SEAN) COVID-19 Clin Com Imaging Radiologist's Impressions: Impressions Chest X-Ray 08/26/21 23:08 IMPRESSION: Hyperinflated lungs suggesting COPD, without acute findings. Assessment and Plan (1) Acute exacerbation of chronic obstructive airways disease: Status: Acute Plan 66-year-old female with a past medical history of hypertension, hyperlipidemia, asthma/COPD, chronic respiratory failure on 4 L of home oxygen, vertigo, migraine headaches, tympanic membrane perforation, chronic ear infection; presented to the hospital today with a chief complaint of shortness of breath. Noted to have following Acute COPD exacerbation: Patient has diminished breath sounds. Able to finish full sentences. On supplemental oxygen. Goal oxygen saturation 93%. Condition nebulizations standing and p.r.n. Continue IV Solu-Medrol Pulmonology follow-up Azithromycin Chest pain: Currently resolved. EKG nonischemic. D-dimer; troponin negative. History of migraines: Continue home care set p.r.n. History of anxiety: Continue home Ativan p.r.n. DVT prophylaxis: Lovenox Code status: Full code Quality Stroke Does the patient have a stroke diagnosis?: No VTE Prior VTE?: No VTE Risk Level:: Medical - moderate - high VTE Device Contraindication: Treatment Not Indicated VTE Drug Contraindication: N/A - Med Ordered
[2021-08-27] MEDS: cefTRIAXone sodium 1 GM in 0.9 % Sodium Chloride 50 ML IV (00:28)
[2021-08-27] MEDS: Azithromycin 500 MG TABLET PO ×2 (01:12→21:01)
[2021-08-27] MEDS: Butalb/Acetamin/Caff 50/325/40 TABLET 1 TAB PO ×4 (01:50→21:01)
[2021-08-27] MEDS: LORazepam 1 MG TABLET 2 MG PO ×3 (01:51→17:50)
[2021-08-27] MEDS: methylPREDNISolone Sod Succ 40 MG/ML VIAL IVPUSH ×3 (05:49→17:46)
[2021-08-27 06:29] LABS: Basophils Percent Auto 0.1 % (0-2); Hemoglobin 10.1 g/dl (12.0-16.0); Imm Gran Abs Auto 0.02 X10*3/uL (0.00-0.03); Imm Gran Pct Auto 0.3 % (0.0-0.4); Lymphocytes Absolute Auto 0.4 X10*3/uL (1.2-4.9); Lymphocytes Percent Auto 4.9 % (20-40); MANUAL DIFF FLAG SCAN; Mean Corpuscular HGB Conc 31.6 g/dl (31.0-35.0); Mean Platelet Volume 8.8 fL (9.4-12.3); Monocytes Absolute Auto 0.1 X10*3/uL (0.1-1.2); Monocytes Percent Auto 0.7 % (2-11); Platelet Count 276 X10*3/uL (160-400); Red Blood Count 3.48 X10*6/uL (4.20-5.50); Red Cell Distribution Width 15.1 % (11.0-16.0); SCAN SMEAR FLAG 1; White Blood Count 7.5 X10*3/uL (4.8-10.8)
[2021-08-27 06:50] LABS: SLIDE REVIEW VERIFIED
[2021-08-27 06:53] LABS: Anion Gap 12 (12-20); Blood Urea Nitrogen 18 mg/dL (9-16); Calcium 9.3 mg/dL (8.4-10.2); Carbon Dioxide 33 mmol/L (22-29); Chloride 101 mmol/L (96-108); Creatinine Clr Calc Pharmacy 57.7; Estimated Glomerular Filt Rate > 60; Glucose Random 235 mg/dL (60-115); Potassium 4.9 mmol/L (3.3-5.1); Sodium 141 mmol/L (135-145)
--- NOTE | 2021-08-27 08:53 | PC.NURSE ---
Pt A&Ox4, lungs diminished throughout, on 4L NC which is baseline, O2 sat while resting in the low to mid 90's, pt will drop into the 80's with movement to the commode. Pt is NSR on monitor, no complaints of pain at this time. Awaiting bed assignment, call campos within reach. will continue to monitor.
[2021-08-27] MEDS: Enoxaparin Sodium 40 MG/0.4 ML SYRINGE SUBCUT (09:45)
[2021-08-27] MEDS: dilTIAZem HCL CD 180 MG CAP.ER.24H 360 MG PO (09:45)
[2021-08-27] MEDS: 0.9 % Sodium Chloride Flush 3 ML SYRINGE IVFLUSH (09:45)
--- NOTE | 2021-08-27 09:53 | P.PNIM_ITS ---
Subjective Subjective Date of Service: 08/27/21 Interval History: cc: sob interval history:a bit worse than yesterday Cardiovascular Cardiovascular: Reports no additional cardiovascular complaints Gastrointestinal Gastrointestinal: Reports no additional gastrointestinal complaints Physical Exam Vital Signs: Vital Signs: Last Vital Signs Temp 98.6 F 08/26/21 22:49 Pulse 72 08/27/21 07:49 Resp 13 08/27/21 07:49 BP 113/52 L 08/27/21 07:49 Pulse Ox 98 08/27/21 07:49 O2 Del Method 08/27/21 07:49 O2 Flow Rate 4 08/27/21 07:49 Oxygen Flow Rate 4.5 08/26/21 22:43 BMI result Body Mass Index 28.8 General: AO X 3, anxious Resp: diminished bilateral, no accessory muscles used CVS: S1,S2,RRR GI: soft, non tender, non distended Neuro: motor grossly intact, alert Psych: appropriate affect, appropriate insight Objective Data Active Medications Acetaminophen (Acetaminophen 325 Mg Tablet) 650 mg PO Q6H PRN PRN Reason: Pain, Mild (Pain Scale 1-3) Acetaminophen/Butalbital/Caffeine (Butalb/Acetamin/Caff 50/325/40 Tablet) 1 tab PO Q12H PRN PRN Reason: Headache Last Admin: 08/27/21 01:50 Dose: 1 tab Documented By: MARIA DEL CARMEN Albuterol Sulfate (Albuterol Sulfate (0.083%) 2.5 Mg/3 Ml Vial.Neb) 2.5 mg INHALE 6XD [facility] Last Admin: 08/27/21 08:12 Dose: Not Given Documented By: FLORENCIO Non-Admin Reason: Duplicate Order Albuterol/Ipratropium (Albuterol/Iprat 2.5/0.5mg 3 Ml Ampul.Neb) 3 ml INHALE RQ4H WHILE AWAKE [facility] Last Admin: 08/27/21 07:49 Dose: Not Given Documented By: FLORENCIO Non-Admin Reason: pt unavail Albuterol/Ipratropium (Albuterol/Iprat 2.5/0.5mg 3 Ml Ampul.Neb) 3 ml INHALE RQ4H PRN PRN Reason: Shortness of Breath/Wheezing Azithromycin (Azithromycin 500 Mg Tablet) 500 mg PO BEDTIME [facility] Last Admin: 08/27/21 01:12 Dose: 500 mg Documented By: BARBERB Benzonatate (Benzonatate 100 Mg Capsule) 100 mg PO TID PRN PRN Reason: Cough Diltiazem HCl (Diltiazem Hcl Cd 180 Mg Cap.Er.24h) 360 mg PO DAILY [facility]; Protocol Last Admin: 08/27/21 09:45 Dose: 360 mg Documented By: NATALIA Enoxaparin Sodium (Enoxaparin Sodium 40 Mg/0.4 Ml Syringe) 40 mg SUBCUT Q24H [facility] Last Admin: 08/27/21 09:45 Dose: 40 mg Documented By: NATALIA Ipratropium [place] (Ipratropium [place] 1 Puff/17 Mcg Inhaler) 1 puff INHALE QID PRN PRN Reason: Wheezing Lorazepam (Lorazepam 1 Mg Tablet) 2 mg PO Q6H PRN PRN Reason: anxiety Last Admin: 08/27/21 09:45 Dose: 2 mg Documented By: NATALIA Melatonin (Melatonin 3 Mg Tablet) 6 mg PO BEDTIME PRN PRN Reason: Insomnia Methylprednisolone Sodium Succinate (Methylprednisolone Sod Succ 40 Mg/Ml Vial) 40 mg IVPUSH Q6H [facility] Last Admin: 08/27/21 05:49 Dose: 40 mg Documented By: MARIA DEL CARMEN Senna (Sennosides 8.6 Mg Tablet) 17.2 mg PO BEDTIME PRN PRN Reason: Constipation Sodium Chloride (0.9 % Sodium Chloride Flush 3 Ml Syringe) 3 ml IVFLUSH QSHIFT [facility] Last Admin: 08/27/21 09:45 Dose: 3 ml Documented By: NATALIA Labs CBC & Chem 7: 08/27/21 06:18 08/27/21 06:18 Labs: Laboratory Results - last 24 hr 08/26/21 08/26/21 08/26/21 23:03 23:03 23:03 MCV 91.1 MCH 29.2 MCHC 32.0 RDW 14.9 Plt Count 289 D MPV 8.7 L Immature Gran % (Auto) 0.2 Neut % (Auto) 60.4 Lymph % (Auto) 27.8 [place] % (Auto) 9.4 Eos % (Auto) 1.9 Baso % (Auto) 0.3 Lymph # (Auto) 2.4 [place] # (Auto) 0.8 Eos # (Auto) 0.2 Baso # (Auto) 0.0 Abs Immat Gran (auto) 0.02 Absolute Neuts (auto) 5.2 Absolute Nucleated RBC 0.000 Nucleated RBC % (auto) 0.0 Smear Tech's Comments D-Dimer High Sensitivty Anion Gap 12 Estim Creat Clear Calc 73.1 Estimated GFR > 60 Random Glucose 139 H Lactic Acid Calcium 9.6 Magnesium 2.1 Total Bilirubin 0.2 Direct Bilirubin < 0.2 AST 20 ALT 20 Alkaline Phosphatase 87 Troponin I High Sens B-Natriuretic Peptide 14 Total Protein 7.3 Albumin 4.4 Lipase 10 COVID-19 (SEAN) COVID-19 Clin Com 08/26/21 08/26/21 08/26/21 23:03 23:03 23:03 MCV MCH MCHC RDW Plt Count MPV Immature Gran % (Auto) Neut % (Auto) Lymph % (Auto) [place] % (Auto) Eos % (Auto) Baso % (Auto) Lymph # (Auto) [place] # (Auto) Eos # (Auto) Baso # (Auto) Abs Immat Gran (auto) Absolute Neuts (auto) Absolute Nucleated RBC Nucleated RBC % (auto) Smear Tech's Comments D-Dimer High Sensitivty < 150 Anion Gap Estim Creat Clear Calc Estimated GFR Random Glucose Lactic Acid 0.7 Calcium Magnesium Total Bilirubin Direct Bilirubin AST ALT Alkaline Phosphatase Troponin I High Sens B-Natriuretic Peptide Total Protein Albumin Lipase COVID-19 (SEAN) Negative COVID-19 Clin Com See Note 08/26/21 08/27/21 08/27/21 23:03 06:18 06:18 MCV 92.0 MCH 29.0 MCHC 31.6 RDW 15.1 Plt Count 276 MPV 8.8 L Immature Gran % (Auto) 0.3 Neut % (Auto) 94.0 H Lymph % (Auto) 4.9 L [place] % (Auto) 0.7 L Eos % (Auto) 0.0 Baso % (Auto) 0.1 Lymph # (Auto) 0.4 L [place] # (Auto) 0.1 Eos # (Auto) 0.0 Baso # (Auto) 0.0 Abs Immat Gran (auto) 0.02 Absolute Neuts (auto) 7.0 Absolute Nucleated RBC 0.000 Nucleated RBC % (auto) 0.0 Smear Tech's Comments VERIFIED D-Dimer High Sensitivty Anion Gap 12 Estim Creat Clear Calc 57.7 Estimated GFR > 60 Random Glucose 235 H Lactic Acid Calcium 9.3 Magnesium Total Bilirubin Direct Bilirubin AST ALT Alkaline Phosphatase Troponin I High Sens < 3.5 B-Natriuretic Peptide Total Protein Albumin Lipase COVID-19 ([facility]) COVID-19 Clin Com Assessment and Plan (1) Acute exacerbation of chronic obstructive airways disease: Status: Acute Plan 66F presented with sob acute on chronic hypoxic respiratory failure due to copd with acute decompensation feeling worse this morning at rest on baseline 4L, become hypoxic on mild exertion continue steroids, nebs pulm eval chest pain resolved, trop negative htn cardizem dvt prophylaxis - lovenox full code reason for continued hospitalization: still very dyspneic Quality Stroke Does the patient have a stroke diagnosis?: No VTE Prior VTE?: No VTE Risk Level:: Medical - moderate - high VTE Device Contraindication: Treatment Not Indicated VTE Drug Contraindication: N/A - Med Ordered
[2021-08-27] MEDS: Albuterol/Iprat 2.5/0.5MG 3 ML AMPUL.NEB INHALE ×2 (10:47→19:04)
[2021-08-27 11:12] LABS: ABG Base Excess 13.3 mmol/L; ABG HCO3 42 mmol/L (22-26); ABG pCO2 76 mmHg (32-45); ABG pH 7.34 (7.35-7.45); ABG pO2 99 mmHg (83-108)
[2021-08-27 11:15] LABS: ABG Refer to POC result
--- NOTE | 2021-08-27 11:44 | MHC.CM.PN ---
Met with patient in regards to discahrge planning. Patient lives with her at [facility]. Her will help her transfer and wheel her in her wheelchair for mobility. Patient is active with [employer] for oxygen. Patient states she will need BLS transport at d/c because she doesn't have an oxygen tank. PCP verified. Copy of HCP verified to be on file. Patient states she has not received any Covid vaccines and is not interested in receiving any. IMM explained and signed. Continue to monitor for d/c needs.
--- NOTE | 2021-08-27 12:40 | P.CONPL_ITS ---
History of Present Illness History of Present Illness Consult date: 08/27/21 Chief complaint: copd exacerbation Narrative: This is an inpatient pulmonary consultation. The patient is a 66-year-old female with a past medical history of hypertension, hyperlipidemia, asthma/COPD, chronic respiratory failure on 4 L of home oxygen, vertigo, migraine headaches, tympanic membrane perforation, chronic ear infection; presented to the hospital today with a chief complaint of shortness of breath.? Patient reports that for the past 2 days she has been having shortness of breath. Mentioned that she uses 4 L of home oxygen [id number].? She tried home inhalers with no significant improvement, subsequently came to the ER for further evaluation.?Patient denies any fevers.? Denies any recent travel or sick contacts.?Patient also reported chest pain, nonradiating.? Review of Systems Constitutional: Constitutional: Denies fever(s) Eyes: Eyes: Denies change in vision ENT: Reports vertigo, Reports ear discharge and Reports otalgia Cardiovascular: Cardiovascular: Reports chest pain, Reports dyspnea and Reports dyspnea on exertion Respiratory: Respiratory: Reports dyspnea, Reports dyspnea on exertion and Reports wheezing Gastrointestinal: Gastrointestinal: Reports no additional gastrointestinal complaints Musculoskeletal: Musculoskeletal: Reports abnormal gait and Reports arthra lgias Neurologic: Reports abnormal gait and Reports vertigo Allergic/Immunologic: Allergic/Immunologic: Reports wheezing PMFSH Past Medical History Medical History Anxiety Asthma Bronchitis Chronic respiratory failure COPD (chronic obstructive pulmonary disease) Diverticulitis Dizziness Emphysema lung Hypertension Otitis media Vertigo Family History Family History (Updated 07/09/21 @ 06:08 by Callie Mccallum MD) Other No family history of coronary artery disease Surgical History Surgical History History of breast surgery History of laparotomy Social History Social History Household Members: Spouse Housing: [facility] Do you presently have visiting nurse or other home services: No Alcohol intake: current Alcohol intake frequency: 0-2 drinks per day Patient Tobacco Use Status: Former Tobacco user Advance Directives: No Advance Directives Information Provided: No service: No Current occupational status: disabled Meds Allergies Allergy/AdvReac Type Severity Reaction Status Date / Time morphine [MORPHINE] Allergy Severe HIVES, Verified 10/04/20 22:39 high temp, nausea tetracycline [TETRACYCLINE] Allergy Severe VOMITING Verified 10/04/20 22:39 tramadol [TRAMADOL] Allergy Severe SWEATING, Verified 10/04/20 22:39 VOMITING, vomiting amoxicillin [From AUGMENTIN] AdvReac Severe CONSTIPATIO Verified 10/04/20 22:39 N clavulanic acid AdvReac Severe CONSTIPATIO Verified 10/04/20 22:39 [From AUGMENTIN] N codeine [CODEINE] AdvReac Severe NAUSEA Verified 10/04/20 22:39 levofloxacin [From LEVAQUIN] AdvReac Severe CONSTIPATIO Verified 10/04/20 22:39 N Sulfa(Sulfonamide Allergy Unknown Unknown Uncoded 10/04/20 22:39 Antibiotics) Active Medications: Current Medications Acetaminophen (Acetaminophen 325 Mg Tablet) 650 mg PO Q6H PRN PRN Reason: Pain, Mild (Pain Scale 1-3) Acetaminophen/Butalbital/Caffeine (Butalb/Acetamin/Caff 50/325/40 Tablet) 1 tab PO Q12H PRN PRN Reason: Headache Last Admin: 08/27/21 01:50 Dose: 1 tab Albuterol/Ipratropium (Albuterol/Iprat 2.5/0.5mg 3 Ml Ampul.Neb) 3 ml INHALE RQ4H WHILE AWAKE [facility] Last Admin: 08/27/21 10:47 Dose: 3 ml Albuterol/Ipratropium (Albuterol/Iprat 2.5/0.5mg 3 Ml Ampul.Neb) 3 ml INHALE RQ4H PRN PRN Reason: Shortness of Breath/Wheezing Azithromycin (Azithromycin 500 Mg Tablet) 500 mg PO BEDTIME [facility] Last Admin: 08/27/21 01:12 Dose: 500 mg Benzonatate (Benzonatate 100 Mg Capsule) 100 mg PO TID PRN PRN Reason: Cough Diltiazem HCl (Diltiazem Hcl Cd 180 Mg Cap.Er.24h) 360 mg PO DAILY [facility]; Protocol Last Admin: 08/27/21 09:45 Dose: 360 mg Enoxaparin Sodium (Enoxaparin Sodium 40 Mg/0.4 Ml Syringe) 40 mg SUBCUT Q24H [facility] Last Admin: 08/27/21 09:45 Dose: 40 mg Ipratropium [place] (Ipratropium [place] 1 Puff/17 Mcg Inhaler) 1 puff INHALE QID PRN PRN Reason: Wheezing Lorazepam (Lorazepam 1 Mg Tablet) 2 mg PO Q6H PRN PRN Reason: anxiety Last Admin: 08/27/21 09:45 Dose: 2 mg Melatonin (Melatonin 3 Mg Tablet) 6 mg PO BEDTIME PRN PRN Reason: Insomnia Methylprednisolone Sodium Succinate (Methylprednisolone Sod Succ 40 Mg/Ml Vial) 40 mg IVPUSH Q6H [facility] Last Admin: 08/27/21 12:07 Dose: 40 mg Senna (Sennosides 8.6 Mg Tablet) 17.2 mg PO BEDTIME PRN PRN Reason: Constipation Sodium Chloride (0.9 % Sodium Chloride Flush 3 Ml Syringe) 3 ml IVFLUSH QSHIFT [facility] Last Admin: 08/27/21 09:45 Dose: 3 ml Home Medications Medication Instructions Recorded Confirmed Last Taken Type albuterol sulfate 2.5 mg/3 mL 1 vial inhalation 6XD 10/04/20 08/27/21 07/08/21 History (0.083 %) solution for nebulization ntrwtyzezq-cmogknqrsyeiv-sbzhlyol 1 - 2 tab PO Q12H PRN Headache 10/04/20 08/27/21 07/08/21 History 50 mg-325 mg-40 mg tablet acetaminophen 325 mg capsule 325 mg PO QID PRN Pain 07/08/21 08/27/21 07/08/21 History (Tylenol) diltiazem HCl 360 mg capsule,24 1 cap PO DAILY 07/08/21 08/27/21 07/08/21 History hr,extended release ipratropium bromide 17 1 puff inhalation QID PRN Wheezing 07/08/21 08/27/21 07/08/21 History mcg/actuation HFA aerosol inhaler (Atrovent HFA) lorazepam 2 mg tablet 1 tab PO Q6H PRN anxiety 07/08/21 08/27/21 07/08/21 Hist ory tiotropium bromide 18 mcg capsule 1 cap inhalation DAILY 08/27/21 08/27/21 Unknown History with inhalation device (Spiriva with HandiHaler) Physical Exam Vital Signs: Vital Signs: Last Vital Signs Temp 98.6 F 08/26/21 22:49 Pulse 91 08/27/21 10:49 Resp 24 H 08/27/21 10:49 BP 113/52 L 08/27/21 07:49 Pulse Ox 98 08/27/21 07:49 O2 Del Method 08/27/21 07:49 O2 Flow Rate 4 08/27/21 07:49 Oxygen Flow Rate 4.5 08/26/21 22:43 BMI result Body Mass Index 28.8 Const: General: alert HEENT: Ears: external ear abnormal auricular tenderness and pain with movement of external ear Neck: Neck: Yes normal visual inspection, Yes full ROM and Yes no lymphadenopathy Chest: Chest palpation & inspection: normal inspection of the chest Resp: Auscultation: diminished lung sounds Cardio: Rate: regular rate Rhythm: regular rhythm Heart sounds: S1 normal heart sound present and S2 normal heart sound present GI: Palpation (GI): Soft to palpation and nontender Auscultation: normal bowel sounds Skin: General skin exam: rashes and/or lesions noted Results Laboratory Findings CBC and BMP: 08/27/21 06:18 08/27/21 06:18 Abnormal lab findings: Abnormal Labs 08/26/21 08/26/21 08/27/21 23:03 23:03 06:18 RBC 3.84 L 3.48 L Hgb 11.2 L 10.1 L Hct 35.0 L 32.0 L MPV 8.7 L 8.8 L Neut % (Auto) 94.0 H Lymph % (Auto) 4.9 L [place] % (Auto) 0.7 L Lymph # (Auto) 0.4 L ABG pH at Pt Temp ABG pCO2 at Pt Temp ABG HCO3 Carbon Dioxide 35 H BUN Random Glucose 139 H 08/27/21 08/27/21 06:18 10:52 RBC Hgb Hct MPV Neut % (Auto) Lymph % (Auto) [place] % (Auto) Lymph # (Auto) ABG pH at Pt Temp 7.34 L ABG pCO2 at Pt Temp 76 H* ABG HCO3 42 H Carbon Dioxide 33 H BUN 18 H Random Glucose 235 H Assessment and Plan (1) Acute exacerbation of chronic obstructive airways disease: Status: Resolved (2) Acute on chronic respiratory failure with hypoxia and hypercapnia: Status: Acute Plan The patient has advanced COPD with evidence of both hypoxic and hypercarbic respiratory failure. She carries a poor prognosis and also has high risk of readmissions to the hospital. The patient needs to start a noninvasive ventilator in order to improve her prognosis and decrease hospitalizations. Recommendations: Breo and Spiriva daily Continue nebulized therapy start BIPAP at night while sleeping. Will likely benefit from a noninvasive ventilator at nighttime when she is discharged home Continue oxygen to maintain a pulse ox between 90-96%. Will arrange for her to have follow-up as an outpatient in our pulmonary office 1-2 weeks upon discharge Procedures Date of Service Date of Service: 08/27/21
--- NOTE | 2021-08-27 20:14 | PC.NURSE ---
Patient asking for another fioricet and patient was given f1 fioricet at around 6 and is not due for 12 hours. Her order from the pharmacy is for 1-2 pills q 12 hrs prn but when medication verified by hospitalist signed off medication reconciliation it was changed to 1 pill prn for 12 hours.
[2021-08-28] VITALS (10 sets, daily range): BP systolic 112–136; BP diastolic 48–72; PULSE 87–105; RESP 16–22; TEMP 36.5–36.8; O2SAT 95–100
[2021-08-28] MEDS: LORazepam 1 MG TABLET 2 MG PO ×3 (01:03→16:58)
[2021-08-28] MEDS: 0.9 % Sodium Chloride Flush 3 ML SYRINGE IVFLUSH ×4 (01:06→21:36)
[2021-08-28] MEDS: methylPREDNISolone Sod Succ 40 MG/ML VIAL IVPUSH ×3 (01:06→18:33)
--- NOTE | 2021-08-28 05:48 | PC.NURSE ---
pt stated she has a 'pounding headache and requested fioricet. Hospitalist has been [place] texted.
[2021-08-28] MEDS: Butalb/Acetamin/Caff 50/325/40 TABLET 2 TAB PO ×2 (06:09→18:34)
--- NOTE | 2021-08-28 08:44 | PC.NURSE ---
Pt is alert and oriented. Pt reports lungs are not doing too good. Lung sounds are clear at this time. Pt is 98% on 5L/m via nasal cannula. O2 decreased to 4L/m. O2 Sat at 97%. Heart sounds are regular. Active bowel sounds on all quadrants. 20G IV on right forarm. Pt is aware of plan of care. Dr. Ford at bedside.
--- NOTE | 2021-08-28 08:58 | PHA.MEDREC ---
Pharmacy Consult ? Medication Reconciliation Pharmacy has reviewed the medication reconciliation.
[2021-08-28] MEDS: dilTIAZem HCL CD 180 MG CAP.ER.24H 360 MG PO (09:00)
[2021-08-28] MEDS: Enoxaparin Sodium 40 MG/0.4 ML SYRINGE SUBCUT (09:01)
--- NOTE | 2021-08-28 10:24 | HO.PM.IMPN ---
Subjective Subjective Date of Service: 08/28/21 Interval History: cc: sob interval history:minimally better Cardiovascular Cardiovascular: Reports no additional cardiovascular complaints Gastrointestinal Gastrointestinal: Reports no additional gastrointestinal complaints Physical Exam Vital Signs: Vital Signs: Last Vital Signs Temp 98.0 F 08/28/21 08:39 Pulse 98 08/28/21 08:39 Resp 17 08/28/21 08:39 BP 112/48 L 08/28/21 08:39 Pulse Ox 98 08/28/21 08:39 O2 Del Method 08/28/21 08:39 O2 Flow Rate 5 08/28/21 08:39 Oxygen Flow Rate 4.5 08/26/21 22:43 BMI result Body Mass Index 28.8 General: AO X 3, anxious Resp: diminished bilateral, no accessory muscles used CVS: S1,S2,RRR GI: soft, non tender, non distended Neuro: motor grossly intact, alert Psych: appropriate affect, appropriate insight Objective Data Active Medications Acetaminophen (Acetaminophen 325 Mg Tablet) 650 mg PO Q6H PRN PRN Reason: Pain, Mild (Pain Scale 1-3) Acetaminophen/Butalbital/Caffeine (Butalb/Acetamin/Caff 50/325/40 Tablet) 2 tab PO Q12H PRN PRN Reason: Headache Last Admin: 08/28/21 06:09 Dose: 2 tab Documented By: CESAR Albuterol/Ipratropium (Albuterol/Iprat 2.5/0.5mg 3 Ml Ampul.Neb) 3 ml INHALE RQ4H WHILE AWAKE [facility] Last Admin: 08/28/21 07:36 Dose: Not Given Documented By: REEMA Non-Admin Reason: Patient Asleep Albuterol/Ipratropium (Albuterol/Iprat 2.5/0.5mg 3 Ml Ampul.Neb) 3 ml INHALE RQ4H PRN PRN Reason: Shortness of Breath/Wheezing Azithromycin (Azithromycin 500 Mg Tablet) 500 mg PO BEDTIME [facility] Last Admin: 08/27/21 21:01 Dose: 500 mg Documented By: NABIL Benzonatate (Benzonatate 100 Mg Capsule) 100 mg PO TID PRN PRN Reason: Cough Diltiazem HCl (Diltiazem Hcl Cd 180 Mg Cap.Er.24h) 360 mg PO DAILY [facility]; Protocol Last Admin: 08/28/21 09:00 Dose: 360 mg Documented By: MARCELINO Enoxaparin Sodium (Enoxaparin Sodium 40 Mg/0.4 Ml Syringe) 40 mg SUBCUT Q24H [facility] Last Admin: 08/28/21 09:01 Dose: 40 mg Documented By: MARCELINO Ipratropium [place] (Ipratropium [place] 1 Puff/17 Mcg Inhaler) 1 puff INHALE QID PRN PRN Reason: Wheezing Lorazepam (Lorazepam 1 Mg Tablet) 2 mg PO Q6H PRN PRN Reason: anxiety Last Admin: 08/28/21 09:01 Dose: 2 mg Documented By: MARCELINO Melatonin (Melatonin 3 Mg Tablet) 6 mg PO BEDTIME PRN PRN Reason: Insomnia Methylprednisolone Sodium Succinate (Methylprednisolone Sod Succ 40 Mg/Ml Vial) 40 mg IVPUSH Q6H [facility] Last Admin: 08/28/21 05:40 Dose: 40 mg Documented By: SHAREEUCKya Senna (Sennosides 8.6 Mg Tablet) 17.2 mg PO BEDTIME PRN PRN Reason: Constipation Sodium Chloride (0.9 % Sodium Chloride Flush 3 Ml Syringe) 3 ml IVFLUSH QSHIFT [facility] Last Admin: 08/28/21 09:00 Dose: 3 ml Documented By: MARCELINO Labs CBC & Chem 7: 08/27/21 06:18 08/27/21 06:18 Labs: Laboratory Results - last 24 hr 08/27/21 10:52 O2 Saturation 97.0 ABG pH at Pt Temp 7.34 L ABG pCO2 at Pt Temp 76 H* ABG pO2 at Pt Temp 99 ABG HCO3 42 H ABG Base Excess (Actual) 13.3 Microbiology Microbiology Results: Microbiology 08/26/21 23:03 Blood Culture - Preliminary Blood - Venous Coag negative Staphylococcus 08/26/21 23:03 Blood Culture - Preliminary Blood - Venous No growth after 24 hours. Assessment and Plan (1) Acute exacerbation of chronic obstructive airways disease: Status: Acute Plan 66F presented with sob acute on chronic hypoxic and hypercapeniec respiratory failure due to copd with acute decompensation a bit better today, but still complaining of severe dyspnea at rest on baseline 4L, becomes hypoxic on mild exertion continue steroids, nebs pulm appreciated chest pain resolved, trop negative htn cardizem dvt prophylaxis - lovenox full code reason for continued hospitalization: still very dyspneic Quality Stroke Does the patient have a stroke diagnosis?: No VTE Prior VTE?: No VTE Risk Level:: Medical - moderate - high VTE Device Contraindication: Treatment Not Indicated VTE Drug Contraindication: N/A - Med Ordered
[2021-08-28] MEDS: Albuterol/Iprat 2.5/0.5MG 3 ML AMPUL.NEB INHALE ×2 (11:23→19:11)
--- NOTE | 2021-08-28 19:47 | PC.NURSE ---
Second attempt made to give report to medical detail representative. Will reaaatmpt shortly.
--- NOTE | 2021-08-28 19:55 | PC.NURSE ---
Report given to RN on med surg.Pt transported to med surg.
[2021-08-28] MEDS: Azithromycin 500 MG TABLET PO (21:36)
[2021-08-29] VITALS: BP 112/67; PULSE 93; RESP 18; TEMP 36.3; O2SAT 99
[2021-08-29] MEDS: methylPREDNISolone Sod Succ 40 MG/ML VIAL IVPUSH ×3 (00:10→12:16)
[2021-08-29] MEDS: LORazepam 1 MG TABLET 2 MG PO ×3 (00:11→12:24)
[2021-08-29 04:00] VITALS: BP 120/56; PULSE 79; RESP 18; TEMP 36.3; O2SAT 98
[2021-08-29] MEDS: Butalb/Acetamin/Caff 50/325/40 TABLET 2 TAB PO (06:36)
[2021-08-29 08:00] VITALS: BP 112/58; PULSE 82; RESP 15; TEMP 36.6; O2SAT 99
[2021-08-29 08:29] VITALS: PULSE 82; RESP 15; O2SAT 99
[2021-08-29] MEDS: Albuterol/Iprat 2.5/0.5MG 3 ML AMPUL.NEB INHALE (08:29)
[2021-08-29] MEDS: 0.9 % Sodium Chloride Flush 3 ML SYRINGE IVFLUSH (09:27)
[2021-08-29] MEDS: dilTIAZem HCL CD 180 MG CAP.ER.24H 360 MG PO (09:27)
[2021-08-29] MEDS: Enoxaparin Sodium 40 MG/0.4 ML SYRINGE SUBCUT (09:28)
--- NOTE | 2021-08-29 09:53 | P.DS_ITS ---
DS: Providers Provider Date of Service: 08/29/21 Date of admission: 08/27/21 00:20 Primary care physician: Mickey Guaman MD Consults: 08/27/21 08:59 Consult to Pulmonology Routine Consulting Provider: Nitesh Ragsdale Reason for consultation: copd DS: Diagnosis Discharge Diagnosis (1) Acute exacerbation of chronic obstructive airways disease: Status: Acute DS: Summary Hospital Course Hospital Course: from initial hpi: Chief Complaint: SOB 66-year-old female with a past medical history of hypertension, hyperlipidemia, asthma/COPD, chronic respiratory failure on 4 L of home oxygen, vertigo, mi graine headaches, tympanic membrane perforation, chronic ear infection; presented to the hospital today with a chief complaint of shortness of breath.? Patient reports that for the past 2 days she has been having shortness of breath; mentions that she has very tight like rock and has not been able to breathe a.? Reports she is also having cough with whitish sputum production.? Mentioned that she uses 4 L of home oxygen [id number].? She tried home inhalers with no significant improvement, subsequently came to the ER for further evaluation.? Patient denies any fevers.? Denies any recent travel or sick contacts.? Patient also reported chest pain, nonradiating.? Currently improved at the time of my interview.? Reports he has history of migraines, mention she had headache without any blurry vision.? Review of all other systems is negative except mentioned above ER course: Per ER team patient's EKG was nonischemic, saved troponins were negative; reportedly EMS noted that the patient has diminished breath sounds; given Solu- Medrol and nebulizers.? Admitted to the hospital for acute COPD exacerbation. hospital course: Patient was admitted for acute on chronic hypoxic and hypercapnic respiratory failure secondary to COPD with acute decompensation. He was given IV Solu- Medrol and bronchodilators as well as azithromycin. Her symptoms improved. She was seen by Pulmonary recommended BiPAP, however, patient did not tolerate. She will be discharged on 5 more days of prednisone and follow up with Pulmonary. For her chest pain on presentation troponins were negative and chest pain resolved. For hypertension she was continued on Cardizem. Time Spent with Patient Time attestation: Total time spent providing and/or coordinating discharge services: Discharge coordination time: Greater than 30 minutes Quality: Safe Use of Opioids Does Pt have an Active Cancer Diagnosis on the Problem List?: No Quality: Stroke Does the patient have a stroke diagnosis?: No Physical Exam Vital Signs: Vital Signs: Last Vital Signs Temp 97.8 F 08/29/21 08:00 Pulse 82 08/29/21 08:29 Resp 15 08/29/21 08:29 BP 112/58 L 08/29/21 08:00 Pulse Ox 99 08/29/21 08:00 O2 Del Method 08/29/21 08:00 O2 Flow Rate 2 08/29/21 08:00 Oxygen Flow Rate 4.5 08/26/21 22:43 BMI result Body Mass Index 28.8 General: AO X 3, no acute distress Resp: diminshed bilateral, no accessory muscles used CVS: S1,S2,RRR GI: soft, non tender, non distended Neuro: motor grossly intact, alert Psych: appropriate affect, appropriate insight DS: Data Data Completed and Pending Labs on day of discharge: Preliminary micro results at discharge 08/26/21 23:03 Blood Culture - Preliminary Blood - Venous No growth after 48 hours. Discharge Plan Discharge Patient Disposition: Home, Self-Care Discharge Diagnosis: copd Referrals: Name,MD Mickey [Primary Care Provider] - 1 Week Nitesh Ragsdale MD [Physician] - 1 Week Discharge Medications: New prednisone 20 mg tablet 40 mg PO DAILY Qty: 10 0RF Continued albuterol sulfate 2.5 mg /3 mL (0.083 %) solution for nebulization 1 vial inhalation 6XD [id number]-vzrwprwrkonsd-xorb 50-325-40 mg tablet 1 - 2 tab PO Q12H PRN (Reason: Headache) diltiazem HCl 360 mg capsule,extended release 24 hr 1 cap PO DAILY lorazepam 2 mg tablet 1 tab PO Q6H PRN (Reason: anxiety) Atrovent HFA 17 mcg/actuation Hfa Aerosol Inhaler 1 puff INHALATION QID PRN (Reason: Wheezing) acetaminophen [Tylenol] 325 mg Capsule 325 mg PO QID PRN (Reason: Pain) Spiriva with HandiHaler 18 mcg capsule, w/inhalation device 1 cap inhalation DAILY Discharge Orders: Discharge Order (Routine); Ordered 08/29/21 Ordered By: Fabrice Ford Diet: Advance to usual diet Activity on Discharge: As tolerated Stand Alone Forms: Patient Portal Discharge page Care Plan Goals: manage copd Health Concerns: copd Plan of Treatment: prednisone 5 days, avoid overuse of o2, follow up with pulm Assessment: see above
--- NOTE | 2021-08-29 10:44 | MHC.CM.PN ---
HOME TODAY - RN AWARE OF [facility] REQUESTED FOR A 1300 TRANSFER HOME. IMM 08/27 PREVIOUSLY COMPLETED
[2021-08-29 11:09] VITALS: BP 135/61; PULSE 95; RESP 16; TEMP 36.1; O2SAT 97
== END 2021-08-29 13:10 | disposition home or self-care (01) | DRG 192 ==
LOC: HO.ED 08-27 00:15 → HO.EDOVER 08-27 00:43 → HO.S3 08-28 17:54
PROVIDERS: Hospitalist; Admitting Provider Hospitalist; Emergency Provider Emergency Medicine; PCP Internal Medicine Geriatric Medicine; Visit Provider Internal Medicine
DX: J43.9 Emphysema, unspecified (principal); Z99.81 Dependence on supplemental oxygen; G43.909 Migraine, unspecified, not intractable, without status migrainosus; F41.9 Anxiety disorder, unspecified; Z20.822 Contact with and (suspected) exposure to COVID-19; R07.9 Chest pain, unspecified; E78.5 Hyperlipidemia, unspecified; J45.909 Unspecified asthma, uncomplicated; Z88.1 Allergy status to other antibiotic agents; Z88.0 Allergy status to penicillin; Z88.2 Allergy status to sulfonamides; Z88.5 Allergy status to narcotic agent; Z79.899 Other long term (current) drug therapy
CPT/HCPCS: 36415; 36600; 70450; 71045; 80048; 80076; 82803; 83605; 83690; 83735; 83880; 84484; 85025; 85379; 87040; 87147; 87205; 87635; 93005; 94640; 94644; 94660; 96365; 99285; J0696; J1650; J2920

== ENCOUNTER 2021-09-03 16:46 | Inpatient (IN) | payer MEDICARE, SELFPAY ==
--- NOTE | ~2021-09-03 | CT_ITS ---
EXAMINATION: CT HEAD WITHOUT CONTRAST CLINICAL INFORMATION: Mental status change COMPARISON: 08/28/2021 TECHNIQUE: Contiguous axial imaging was performed from the skull base to vertex without intravenous administration of contrast. This CT examination was performed using dose optimization techniques as appropriate, variously including the following: *Automated exposure control *Adjustment of mA and/or kV according to patient size (this includes techniques or standardized protocols for targeted exams where dose is matched to indication/reason for exam; i.e. extremities or head) *Use of iterative reconstruction technique DLP: 684 mGy-cm FINDINGS: There is no evidence of acute intracranial hemorrhage or territorial infarction. No abnormal mass effect or midline shift is seen. Trent to white matter differentiation is well preserved. No extra-axial fluid collections are identified. The ventricles are normal in size. Symmetrical white matter changes most consistent with terminal supply white matter chronic lacunar ischemic/infarct involving the marks radiata and centrum semiovale. The osseous structures and soft tissues are normal. The mastoid air cells and visualized portions of the paranasal sinuses are well aerated. CT/CT head/brain wo con IMPRESSION: No acute intracranial pathology.
--- NOTE | ~2021-09-03 | CT_ITS ---
EXAMINATION: CT HEAD WITHOUT CONTRAST CT CERVICAL SPINE WITHOUT CONTRAST CLINICAL INFORMATION: Trauma COMPARISON: CT scan of brain from 09/03/2021, 08/28/2021 No comparison of cervical spine seen TECHNIQUE: Contiguous axial imaging was performed from the skull base to vertex without intravenous administration of contrast. Contiguous axial imaging was performed from the cervical spine and source images were reviewed along with axial reconstructions and sagittal and coronal MPRs. This CT examination was performed using dose optimization techniques as appropriate, variously including the following: *Automated exposure control *Adjustment of mA and/or kV according to patient size (this includes techniques or standardized protocols for targeted exams where dose is matched to indication/reason for exam; i.e. extremities or head) *Use of iterative reconstruction technique DLP: 699 mGy-cm CT HEAD: There is no evidence of acute intracranial hemorrhage or territorial infarction. No abnormal mass effect or midline shift is seen. Trent to white matter differentiation is well preserved. No extra-axial fluid collections are identified. There are patchy periventricular white matter changes as a sequela of microangiopathy. The ventricles and sulcal spaces are proportional. No acute calvarial fracture. The mastoid air cells and visualized portions of the paranasal sinuses are well aerated. There is large subcutaneous cephalohematoma on the left side, adjacent to the left parieto-occipital region, new since previous study CT CERVICAL SPINE: Vertebral bodies are well aligned and intervertebral discs are preserved. There is straightening of cervical lordosis as a sequela of muscle spasm and there is narrowing of C4-C5 C5-C6 and C6-C7 and C7-T1 intervertebral disc spaces. There is no spinal canal stenosis. No fracture seen. There is uncovertebral osteophytosis. Soft tissues unremarkable and thyroid gland is atrophic. Central airway is patent. The visualized lung apices are clear with features of centrilobular emphysema. . CT/CT cervical spine wo con IMPRESSION: No acute intracranial process. New cephalohematoma over the left occipitoparietal region No acute fracture or malalignment of cervical spine. Mild degenerative changes is straightening of cervical lordosis possibly due to muscle spasm
--- NOTE | ~2021-09-03 | XR_ITS ---
EXAMINATION: XR CHEST CLINICAL INFORMATION: Shortness of breath. COMPARISON: Chest radiographs on 08/26/2021 TECHNIQUE: Frontal view of the chest was obtained. FINDINGS: The cardiomediastinal and hilar contours appear stable. No pneumothorax identified. No pleural effusions identified. No new consolidations. XR/XR chest 1V IMPRESSION: No acute process identified.
--- NOTE | 2021-09-03 17:04 | ED.GENADULT ---
HPI - General Adult General Chief complaint: Dyspnea <GABRIELA Beckman - Last Filed: 09/03/21 21:08> Stated complaint: covid + SOB <GABRIELA Beckman - Last Filed: 09/03/21 21:08> Time Seen by Provider: 09/03/21 17:04 <GABRIELA Beckman Last Filed: 09/03/21 21:08> Source: patient and EMS <GABRIELA Beckman Last Filed: 09/03/21 21:08> Mode of arrival: EMS <GABRIELA Beckman Last Filed: 09/03/21 21:08> Limitations: no limitations <GABRIELA Beckman Last Filed: 09/03/21 21:08> History of Present Illness HPI narrative: Patient is a 66 year old female with a history of COPD requiring maintenance oxygen, presenting to the emergency department today with worsening COVID-19 symptoms. Patient states that she was diagnosed with COVID-19 a few days ago and feels like it is getting worse. Patient denies any dizziness, lightheadedness, abdominal pain, nausea, vomiting, fever, chills, blurry vision, double vision, loss of vision, chest pain, back pain, night sweats, pain with urination, increased urinary frequency, increased urinary urgency, blood in her urine or stool, syncope or a near syncopal episode, recent trauma or falls, bowel incontinence, bladder incontinence, bowel retention, bladder retention, or any other complaints at this time. <GABRIELA Beckman - Last Filed: 09/03/21 21:08> Onset (ago): day(s) <GABRIELA Beckman Last Filed: 09/03/21 21:08> Severity: mild <GABRIELA Beckman Last Filed: 09/03/21 21:08> Severity scale (1-10): 3 <GABRIELA Beckman Last Filed: 09/03/21 21:08> Relieving factors: none <GABRIELA Beckman Last Filed: 09/03/21 21:08> Associated symptoms: denies other symptoms <GABRIELA Beckman Last Filed: 09/03/21 21:08> Treatments prior to arrival: none <GABRIELA Beckman Last Filed: 09/03/21 21:08> Related Data Home medications: Home Medications Medication Instructions Recorded Confirmed albuterol sulfate 2.5 mg/3 mL 1 vial inhalation 6XD 10/04/20 09/03/21 (0.083 %) solution for nebulization [id number] 1 - 2 tab PO Q12H PRN Headache 10/04/20 09/03/21 50 mg-325 mg-40 mg tablet diltiazem HCl 360 mg capsule,24 1 cap PO DAILY 07/08/21 09/03/21 hr,extended release lorazepam 2 mg tablet 1 tab PO Q6H PRN anxiety 07/08/21 09/03/21 tiotropium bromide 18 mcg capsule 1 cap inhalation DAILY 08/27/21 09/03/21 with inhalation device (Spiriva with HandiHaler) ipratropium bromide 0.02 % 2.5 ml inhalation Q6H PRN wheezing 09/03/21 09/03/21 solution for inhalation <GABRIELA Beckman Last Filed: 09/03/21 21:08> Allergies/adverse reactions: Allergies Allergy/AdvReac Type Severity Reaction Status Date / Time morphine [MORPHINE] Allergy Severe HIVES, Verified 10/04/20 22:39 high temp, nausea tetracycline [TETRACYCLINE] Allergy Severe VOMITING Verified 10/04/20 22:39 tramadol [TRAMADOL] Allergy Severe SWEATING, Verified 10/04/20 22:39 VOMITING, vomiting amoxicillin [From AUGMENTIN] AdvReac Severe CONSTIPATIO Verified 10/04/20 22:39 N clavulanic acid AdvReac Severe CONSTIPATIO Verified 10/04/20 22:39 [From AUGMENTIN] N codeine [CODEINE] AdvReac Severe NAUSEA Verified 10/04/20 22:39 levofloxacin [From LEVAQUIN] AdvReac Severe CONSTIPATIO Verified 10/04/20 22:39 N Sulfa(Sulfonamide Allergy Unknown Unknown Uncoded 10/04/20 22:39 Antibiotics) <GABRIELA Beckman Last Filed: 09/03/21 21:08> Review of Systems Constitutional: Constitutional: Reports no additional constitutional complaints, Denies chills, Denies fever(s) and Denies night sweats <GABRIELA Beckman Last Filed: 09/03/21 21:08> Eyes: Eyes: Reports no additional eye complaints, Denies blurry vision, Denies change in vision, Denies diplopia, Denies eye discharge, Denies loss of vision and Denies eye pain <GABRIELA Beckman - Last Filed: 09/03/21 21:08> ENT: Denies dizziness <GABRIELA Beckman - Last Filed: 09/03/21 21:08> Cardiovascular: Cardiovascular: Reports no additional cardiovascular complaints, Denies chest pain, Denies lightheadedness, Denies Loss of Consciousness and Reports dyspnea <GABRIELA Beckman - Last Filed: 09/03/21 21:08> Respiratory: Respiratory: Reports dyspnea <GABRIELA Beckman - Last Filed: 09/03/21 21:08> Comments: patient on oxygen at baseline <GABRIELA Beckman - Last Filed: 09/03/21 21:08> Gastrointestinal: Gastrointestinal: Reports no additional gastrointestinal complaints, Denies abdominal pain, Denies melena, Denies hematochezia, Denies change in bowel habits and Denies change in stool character <GABRIELA Beckman - Last Filed: 09/03/21 21:08> Genitourinary: Genitourinary: Denies hematuria, Denies urinary frequency, Denies dysuria, Denies urinary incontinence, Denies urinary hesitancy and Denies urinary urgency <GABRIELA Beckman - Last Filed: 09/03/21 21:08> Musculoskeletal: Musculoskeletal: Reports no additional musculoskeletal complaints, Denies numbness and Denies tingling <GABRIELA Beckman - Last Filed: 09/03/21 21:08> Neurologic: Denies dizziness, Denies loss of vision, Denies numbness and Denies tingling <GABRIELA Beckman - Last Filed: 09/03/21 21:08> Psychiatric: Psychiatric: Reports no additional psychiatric complaints <GABRIELA Beckman - Last Filed: 09/03/21 21:08> Endocrine: Endocrine: Reports no additional endocrine complaints <GABRIELA Beckman - Last Filed: 09/03/21 21:08> Hematologic/Lymphatic: Hematologic/Lymphatic: Reports no additional hematologic/lymphatic complaints <GABRIELA Beckman - Last Filed: 09/03/21 21:08> Allergic/Immunologic: Allergic/Immunologic: Reports no additional allergic/immunologic complaints <GABRIELA Beckman - Last Filed: 09/03/21 21:08> [facility] Past Medical History Attestation statement: The following information was validated with the patient. <GABRIELA Beckman - Last Filed: 09/03/21 21:08> Source: old records reviewed <GABRIELA Beckman - Last Filed: 09/03/21 21:08> Medical History: Medical History Anxiety Asthma Bronchitis Chronic respiratory failure COPD (chronic obstructive pulmonary disease) Diverticulitis Dizziness Emphysema lung Hypertension Otitis media Vertigo <GABRIELA Beckman - Last Filed: 09/03/21 21:08> Surgical History: Surgical History History of breast surgery History of laparotomy <GABRIELA Beckman - Last Filed: 09/03/21 21:08> Family History Family History: Family History Other No family history of coronary artery disease <GABRIELA Beckman - Last Filed: 09/03/21 21:08> Social History Social History: Social History Household Members: Spouse Housing: Other Housing Other:: [facility] Do you presently have visiting nurse or other home services: No Alcohol intake: current Alcohol intake frequency: 0-2 drinks per day Patient Tobacco Use Status: Former Tobacco user Advance Directives: No Advance Directives Information Provided: No service: No Current occupational status: disabled <GABRIELA Beckman - Last Filed: 09/03/21 21:08> Physical Exam ED Vital Signs: Vital Signs - 24 hr 09/03/21 17:31 Temperature 99.8 F Pulse Rate 110 H Respiratory Rate 20 Blood Pressure 137/79 Pulse Oximetry 99 Oxygen Delivery Method Nasal Cannula BMI result Body Mass Index 28.8 <GABRIELA Beckman - Last Filed: 09/03/21 21:08> Vital Signs - 24 hr 09/03/21 17:31 Temperature 99.8 F Pulse Rate 110 H Respiratory Rate 20 Blood Pressure 137/79 Pulse Oximetry 99 Oxygen Delivery Method Nasal Cannula BMI result Body Mass Index 28.8 <Aldair Garber MD - Last Filed: 09/03/21 23:00> Const General: cooperative, no acute distress, alert, awake and poor hygiene <GABRIELA Beckman - Last Filed: 09/03/21 21:08> Nutritional Appearance: obese <GABRIELA Beckman - Last Filed: 09/03/21 21:08> Orientation/consciousness: patient oriented x3 <GABRIELA Beckman - Last Filed: 09/03/21 21:08> Limitations: no limitations <GABRIELA Beckman - Last Filed: 09/03/21 21:08> HENMT Head: Yes normal to inspection and Yes atraumatic <GABRIELA Beckman - Last Filed: 09/03/21 21:08> Ears: hearing grossly normal bilaterally and external ears normal <GABRIELA Beckman - Last Filed: 09/03/21 21:08> General nose exam: Normal external nose present, no nasal discharge noted and no epistaxis <GABRIELA Beckman - Last Filed: 09/03/21 21:08> Face and sinus: Yes normal facial exam, No abrasion and No laceration <GABRIELA Beckman - Last Filed: 09/03/21 21:08> Mouth: Normal oral and palatal mucosa present, no drooling and no muffled voice <GABRIELA Beckman - Last Filed: 09/03/21 21:08> Eyes General: appearance normal, both eyes and all related structures <GABRIELA Beckman - Last Filed: 09/03/21 21:08> Periorbital: periorbital findings normal <GABRIELA Beckman - Last Filed: 09/03/21 21:08> Eyelids: Yes eyelids normal <GABRIELA Beckman - Last Filed: 09/03/21 21:08> Conjunctivae: conjunctivae normal <GABRIELA Beckman - Last Filed: 09/03/21 21:08> Pupils: Equal, round and reactive pupils present <GABRIELA Beckman - Last Filed: 09/03/21 21:08> EOM: EOMs intact bilaterally <GABRIELA Beckman - Last Filed: 09/03/21 21:08> Neck Neck: Yes normal visual inspection, Yes full ROM and Yes no lymphadenopathy <April ParedesGABRIELA - Last Filed: 09/03/21 21:08> Chest Chest palpation & inspection: normal inspection of the chest <April ParedesGABRIELA - Last Filed: 09/03/21 21:08> Resp Other: on oxygen via nasal cannula at baseline <April BasurtoGABRIELA peralta - Last Filed: 09/03/21 21:08> Effort & Inspection: normal respiratory effort and able to speak in complete sentences <April BasurtoGABRIELA peralta - Last Filed: 09/03/21 21:08> Cardio Rate: tachycardic <April BasurtoGABRIELA peralta - Last Filed: 09/03/21 21:08> Rhythm: regular rhythm <April ParedesGABRIELA - Last Filed: 09/03/21 21:08> GI Inspection: Yes normal to inspection <April BasurtoGABRIELA peralta - Last Filed: 09/03/21 21:08> Neuro General: patient oriented x3 and moves all extremities <April Basurtokathryn CO - Last Filed: 09/03/21 21:08> Cranial nerves: Yes Equal, round and reactive pupils present <April Basurtokathryn CO - Last Filed: 09/03/21 21:08> Cognition (Neuro): normal cognition <April ParedesGABRIELA - Last Filed: 09/03/21 21:08> Motor exam (neuro): 5/5 motor strength present throughout <April BasurtoGABRIELA peralta - Last Filed: 09/03/21 21:08> Sensory Exam: Normal double simultaneous stimulation for sensation <April Basurtokathryn CO - Last Filed: 09/03/21 21:08> Coordination: [id number] test normal <April BasurtoGABRIELA peralta - Last Filed: 09/03/21 21:08> Extrem General: Yes normal to inspection, Yes full ROM and Yes capillary refill normal <April Basurtokathryn CO - Last Filed: 09/03/21 21:08> Psych Appearance: grossly normal <Aprilgold BasurtoGABRIELA epralta - Last Filed: 09/03/21 21:08> Mental Status: mental status grossly normal <April GABRIELA Paredes - Last Filed: 09/03/21 21:08> Affect: normal affect <GABRIELA Beckman - Last Filed: 09/03/21 21:08> Attitude: cooperative <GABRIELA Beckman - Last Filed: 09/03/21 21:08> Thought process: Normal thought process present <GABRIELA Beckman Last Filed: 09/03/21 21:08> Thought content: Normal thought content present <GABRIELA Beckman Last Filed: 09/03/21 21:08> Insight: Good insight present (Psych) <GABRIELA Beckman - Last Filed: 09/03/21 21:08> Course Course Course Narrative: 2221: I assumed care of this patient from my colleague, physician assistant dean Jalyn Paredes at 21:00 hours. The patient presented with generalized weakness unable to walk, she was diagnosed with COVID 19 at [facility] on 08/31/2021 where she was admitted for 1 day. In reviewing the discharge summary patient has COPD and was on 2 L of oxygen at her baseline she presented with shortness of breath and feeling anxious secondary to benzodiazepine withdrawal. The patient was not vaccinated against COVID. She was found to be COVID positive but refused any antiviral treatment for cheondoism reasons. The patient states that since being discharged from [facility] she has been very weak and is having difficulty standing and walking secondary to her weakness. The patient states that she does not want any antiviral treatments and that she was on a ventilator for 3 and half weeks many years ago and she is not interested in being intubated. She states that she would do noninvasive such as high-flow oxygen and BiPAP. On my physical exam she appears to be weak, she has a very raspy voice but is able to answer questions without any difficulty. Lung exam revealed diminished breath sounds bilaterally with no rales, wheezing or rhonchi. The patient is able to move all extremities but does have generalized weakness. O2 sat was 100% on 3 L via nasal cannula I did review her laboratory evaluation [place] an [place] [address]. Venous pH was 7.35. CO2 was elevated at 40. ETOH below detectable limits chest x-ray was unremarkable. CT scan of the brain revealed no acute process Given the patient's COVID positive status weakness, COPD with chronic oxygen therapy, I do not think this patient would be appropriate for case management and placement in a penitentiary facility specially since she may decompensate and she does want noninvasive therapy to help support her through this illness. She is very clear that she does not want to be intubated and she does not want antiviral medications but she will be treated with other medications. Therefore, I will discuss admission with the covering hospitalist. 2257: I did discuss the patient's presentation with the covering hospitalist, Dr. Mccallum and the patient will be admitted for further management. <Aldair Garber MD - Last Filed: 09/03/21 23:00> Medical Decision Making MDM Narrative Medical decision making narrative: Patient is a 66 year old female presenting to the emergency department today with chronic shortness of breath, weakness, and COVID-19. Patient's physical exam showed tachycardia however, I believe that is secondary to COVID-19 and not any acute process. Patient is on oxygen via nasal cannula at baseline and does not have any increased work of breathing today. Patient's blood work showed an elevated WBC count however, I believe that is secondary to a stress reaction rather than infection. Patient's bicarb was elevated to 40 however, this is chronic for the patient. Patient's urine is pending at this time. Patient's EKG was unremarkable. Patient's chest x-ray and head CT showed no acute process. I explained my physical exam findings as well as all test results to the patient. I answered all questions asked by the patient. Patient is exhibiting continued signs of COVID-19 infection. Patient to be evaluated by PT for possible short term rehab placement secondary to COVID-19 weakness. Patient is not septic, nor did I ever consider this patient septic throughout my care of her. <GABRIELA Beckman - Last Filed: 09/03/21 21:08> Differential Diagnosis Differential Diagnosis: COVID-19, COPD <GABRIELA Beckman - Last Filed: 09/03/21 21:08> Medical Records Medical records reviewed: Yes I reviewed the patient's medical records. <GABRIELA Beckman - Last Filed: 09/03/21 21:08> Lab Data Lab results reviewed: Yes I reviewed the patient's lab results. <GABRIELA Beckman - Last Filed: 09/03/21 21:08> Result diagrams: : 09/03/21 17:22 09/03/21 17:22 <GABRIELA Beckman - Last Filed: 09/03/21 21:08> Labs: Lab Results 09/03/21 09/03/21 09/03/21 Range/Units 17:22 17:22 17:22 WBC 12.9 H (4.8-10.8) X10*3/uL RBC 3.94 L (4.20-5.50) X10*6/uL Hgb 11.4 L (12.0-16.0) g/dl Hct 37.4 (37.0-47.0) % MCV 94.9 (80.0-98.0) fL MCH 28.9 (27.0-33.0) pg MCHC 30.5 L (31.0-35.0) g/dl RDW 15.7 (11.0-16.0) % Plt Count 384 D (160-400) X10*3/uL MPV 9.1 L (9.4-12.3) fL Immature Gran % (Auto) 1.1 H (0.0-0.4) % Neut % (Auto) 69.6 (45-73) % Lymph % (Auto) 16.2 L (20-40) % Hartley % (Auto) 10.2 (2-11) % Eos % (Auto) 2.7 (0-4) % Baso % (Auto) 0.2 (0-2) % Lymph # (Auto) 2.1 (1.2-4.9) X10*3/uL Hartley # (Auto) 1.3 H (0.1-1.2) X10*3/uL Eos # (Auto) 0.4 (0.0-0.4) X10*3/uL Baso # (Auto) 0.0 (0.0-0.2) X10*3/uL Abs Immat Gran (auto) 0.14 H (0.00-0.03) X10*3/uL Absolute Neuts (auto) 9.0 H (2.0-8.3) x10*3/uL Absolute Nucleated RBC 0.000 (0.0-0.012) X10*3/uL Nucleated RBC % (auto) 0.0 (0.0-0.2) /100WBC VBG pH (7.32-7.43) VBG pCO2 mmHg VBG pO2 mmHg VBG HCO3 (22-26) mmol/L VBG O2 Saturation % VBG Base Excess mmol/L Sodium 146 H (135-145) mmol/L Potassium 4.2 (3.3-5.1) mmol/L Chloride 99 (96-108) mmol/L Carbon Dioxide 40 H* D (22-29) mmol/L Anion Gap 11 L (12-20) BUN 28 H D (9-16) mg/dL Creatinine 0.79 (0.5-1.4) mg/dL Estim Creat Clear Calc 55.5 Estimated GFR > 60 Random Glucose 133 H (60-115) mg/dL Lactic Acid (0.5-2.0) mmol/L Calcium 9.5 (8.4-10.2) mg/dL Magnesium 2.3 (1.6-2.6) mg/dL Total Bilirubin < 0.2 (0.0-1.0) mg/dL AST 19 (5-31) U/L ALT 51 H (0-31) U/L Alkaline Phosphatase 78 (39-117) U/L Troponin I High Sens 4.4 (<3.5-17.0) ng/L B-Natriuretic Peptide (<100) pg/mL Total Protein 6.7 (6.5-8.0) g/dL Albumin 4.1 (3.5-5.0) g/dL Ethyl Alcohol mg/dL 09/03/21 09/03/21 09/03/21 Range/Units 17:22 19:09 19:09 WBC (4.8-10.8) X10*3/uL RBC (4.20-5.50) X10*6/uL Hgb (12.0-16.0) g/dl Hct (37.0-47.0) % MCV (80.0-98.0) fL MCH (27.0-33.0) pg MCHC (31.0-35.0) g/dl RDW (11.0-16.0) % Plt Count (160-400) X10*3/uL MPV (9.4-12.3) fL Immature Gran % (Auto) (0.0-0.4) % Neut % (Auto) (45-73) % Lymph % (Auto) (20-40) % Hartley % (Auto) (2-11) % Eos % (Auto) (0-4) % Baso % (Auto) (0-2) % Lymph # (Auto) (1.2-4.9) X10*3/uL Hartley # (Auto) (0.1-1.2) X10*3/uL Eos # (Auto) (0.0-0.4) X10*3/uL Baso # (Auto) (0.0-0.2) X10*3/uL Abs Immat Gran (auto) (0.00-0.03) X10*3/uL Absolute Neuts (auto) (2.0-8.3) x10*3/uL Absolute Nucleated RBC (0.0-0.012) X10*3/uL Nucleated RBC % (auto) (0.0-0.2) /100WBC VBG pH (7.32-7.43) VBG pCO2 mmHg VBG pO2 mmHg VBG HCO3 (22-26) mmol/L VBG O2 Saturation % VBG Base Excess mmol/L Sodium (135-145) mmol/L Potassium (3.3-5.1) mmol/L Chloride (96-108) mmol/L Carbon Dioxide (22-29) mmol/L Anion Gap (12-20) BUN (9-16) mg/dL Creatinine (0.5-1.4) mg/dL Estim Creat Clear Calc Estimated GFR Random Glucose (60-115) mg/dL Lactic Acid 0.8 (0.5-2.0) mmol/L Calcium (8.4-10.2) mg/dL Magnesium (1.6-2.6) mg/dL Total Bilirubin (0.0-1.0) mg/dL AST (5-31) U/L ALT (0-31) U/L Alkaline Phosphatase (39-117) U/L Troponin I High Sens (<3.5-17.0) ng/L B-Natriuretic Peptide 14 (<100) pg/mL Total Protein (6.5-8.0) g/dL Albumin (3.5-5.0) g/dL Ethyl Alcohol < 10 mg/dL 09/03/21 Range/Units 19:23 WBC (4.8-10.8) X10*3/uL RBC (4.20-5.50) X10*6/uL Hgb (12.0-16.0) g/dl Hct (37.0-47.0) % MCV (80.0-98.0) fL MCH (27.0-33.0) pg MCHC (31.0-35.0) g/dl RDW (11.0-16.0) % Plt Count (160-400) X10*3/uL MPV (9.4-12.3) fL Immature Gran % (Auto) (0.0-0.4) % Neut % (Auto) (45-73) % Lymph % (Auto) (20-40) % Hartley % (Auto) (2-11) % Eos % (Auto) (0-4) % Baso % (Auto) (0-2) % Lymph # (Auto) (1.2-4.9) X10*3/uL Hartley # (Auto) (0.1-1.2) X10*3/uL Eos # (Auto) (0.0-0.4) X10*3/uL Baso # (Auto) (0.0-0.2) X10*3/uL Abs Immat Gran (auto) (0.00-0.03) X10*3/uL Absolute Neuts (auto) (2.0-8.3) x10*3/uL Absolute Nucleated RBC (0.0-0.012) X10*3/uL Nucleated RBC % (auto) (0.0-0.2) /100WBC VBG pH 7.35 (7.32-7.43) VBG pCO2 86 mmHg VBG pO2 70 mmHg VBG HCO3 48 H (22-26) mmol/L VBG O2 Saturation 92.0 % VBG Base Excess 18.1 mmol/L Sodium (135-145) mmol/L Potassium (3.3-5.1) mmol/L Chloride (96-108) mmol/L Carbon Dioxide (22-29) mmol/L Anion Gap (12-20) BUN (9-16) mg/dL Creatinine (0.5-1.4) mg/dL Estim Creat Clear Calc Estimated GFR Random Glucose (60-115) mg/dL Lactic Acid (0.5-2.0) mmol/L Calcium (8.4-10.2) mg/dL Magnesium (1.6-2.6) mg/dL Total Bilirubin (0.0-1.0) mg/dL AST (5-31) U/L ALT (0-31) U/L Alkaline Phosphatase (39-117) U/L Troponin I High Sens (<3.5-17.0) ng/L B-Natriuretic Peptide (<100) pg/mL Total Protein (6.5-8.0) g/dL Albumin (3.5-5.0) g/dL Ethyl Alcohol mg/dL <GABRIELA Beckman - Last Filed: 09/03/21 21:08> Lab Results 09/03/21 09/03/21 09/03/21 Range/Units 17:22 17:22 17:22 WBC 12.9 H (4.8-10.8) X10*3/uL RBC 3.94 L (4.20-5.50) X10*6/uL Hgb 11.4 L (12.0-16.0) g/dl Hct 37.4 (37.0-47.0) % MCV 94.9 (80.0-98.0) fL MCH 28.9 (27.0-33.0) pg MCHC 30.5 L (31.0-35.0) g/dl RDW 15.7 (11.0-16.0) % Plt Count 384 D (160-400) X10*3/uL MPV 9.1 L (9.4-12.3) fL Immature Gran % (Auto) 1.1 H (0.0-0.4) % Neut % (Auto) 69.6 (45-73) % Lymph % (Auto) 16.2 L (20-40) % Hartley % (Auto) 10.2 (2-11) % Eos % (Auto) 2.7 (0-4) % Baso % (Auto) 0.2 (0-2) % Lymph # (Auto) 2.1 (1.2-4.9) X10*3/uL Hartley # (Auto) 1.3 H (0.1-1.2) X10*3/uL Eos # (Auto) 0.4 (0.0-0.4) X10*3/uL Baso # (Auto) 0.0 (0.0-0.2) X10*3/uL Abs Immat Gran (auto) 0.14 H (0.00-0.03) X10*3/uL Absolute Neuts (auto) 9.0 H (2.0-8.3) x10*3/uL Absolute Nucleated RBC 0.000 (0.0-0.012) X10*3/uL Nucleated RBC % (auto) 0.0 (0.0-0.2) /100WBC VBG pH (7.32-7.43) VBG pCO2 mmHg VBG pO2 mmHg VBG HCO3 (22-26) mmol/L VBG O2 Saturation % VBG Base Excess mmol/L Sodium 146 H (135-145) mmol/L Potassium 4.2 (3.3-5.1) mmol/L Chloride 99 (96-108) mmol/L Carbon Dioxide 40 H* D (22-29) mmol/L Anion Gap 11 L (12-20) BUN 28 H D (9-16) mg/dL Creatinine 0.79 (0.5-1.4) mg/dL Estim Creat Clear Calc 55.5 Estimated GFR > 60 Random Glucose 133 H (60-115) mg/dL Lactic Acid (0.5-2.0) mmol/L Calcium 9.5 (8.4-10.2) mg/dL Magnesium 2.3 (1.6-2.6) mg/dL Total Bilirubin < 0.2 (0.0-1.0) mg/dL AST 19 (5-31) U/L ALT 51 H (0-31) U/L Alkaline Phosphatase 78 (39-117) U/L Troponin I High Sens 4.4 (<3.5-17.0) ng/L B-Natriuretic Peptide (<100) pg/mL Total Protein 6.7 (6.5-8.0) g/dL Albumin 4.1 (3.5-5.0) g/dL Ethyl Alcohol mg/dL 09/03/21 09/03/21 09/03/21 Range/Units 17:22 19:09 19:09 WBC (4.8-10.8) X10*3/uL RBC (4.20-5.50) X10*6/uL Hgb (12.0-16.0) g/dl Hct (37.0-47.0) % MCV (80.0-98.0) fL MCH (27.0-33.0) pg MCHC (31.0-35.0) g/dl RDW (11.0-16.0) % Plt Count (160-400) X10*3/uL MPV (9.4-12.3) fL Immature Gran % (Auto) (0.0-0.4) % Neut % (Auto) (45-73) % Lymph % (Auto) (20-40) % Hartley % (Auto) (2-11) % Eos % (Auto) (0-4) % Baso % (Auto) (0-2) % Lymph # (Auto) (1.2-4.9) X10*3/uL Hartley # (Auto) (0.1-1.2) X10*3/uL Eos # (Auto) (0.0-0.4) X10*3/uL Baso # (Auto) (0.0-0.2) X10*3/uL Abs Immat Gran (auto) (0.00-0.03) X10*3/uL Absolute Neuts (auto) (2.0-8.3) x10*3/uL Absolute Nucleated RBC (0.0-0.012) X10*3/uL Nucleated RBC % (auto) (0.0-0.2) /100WBC VBG pH (7.32-7.43) VBG pCO2 mmHg VBG pO2 mmHg VBG HCO3 (22-26) mmol/L VBG O2 Saturation % VBG Base Excess mmol/L Sodium (135-145) mmol/L Potassium (3.3-5.1) mmol/L Chloride (96-108) mmol/L Carbon Dioxide (22-29) mmol/L Anion Gap (12-20) BUN (9-16) mg/dL Creatinine (0.5-1.4) mg/dL Estim Creat Clear Calc Estimated GFR Random Glucose (60-115) mg/dL Lactic Acid 0.8 (0.5-2.0) mmol/L Calcium (8.4-10.2) mg/dL Magnesium (1.6-2.6) mg/dL Total Bilirubin (0.0-1.0) mg/dL AST (5-31) U/L ALT (0-31) U/L Alkaline Phosphatase (39-117) U/L Troponin I High Sens (<3.5-17.0) ng/L B-Natriuretic Peptide 14 (<100) pg/mL Total Protein (6.5-8.0) g/dL Albumin (3.5-5.0) g/dL Ethyl Alcohol < 10 mg/dL 09/03/21 Range/Units 19:23 WBC (4.8-10.8) X10*3/uL RBC (4.20-5.50) X10*6/uL Hgb (12.0-16.0) g/dl Hct (37.0-47.0) % MCV (80.0-98.0) fL MCH (27.0-33.0) pg MCHC (31.0-35.0) g/dl RDW (11.0-16.0) % Plt Count (160-400) X10*3/uL MPV (9.4-12.3) fL Immature Gran % (Auto) (0.0-0.4) % Neut % (Auto) (45-73) % Lymph % (Auto) (20-40) % Hartley % (Auto) (2-11) % Eos % (Auto) (0-4) % Baso % (Auto) (0-2) % Lymph # (Auto) (1.2-4.9) X10*3/uL Hartley # (Auto) (0.1-1.2) X10*3/uL Eos # (Auto) (0.0-0.4) X10*3/uL Baso # (Auto) (0.0-0.2) X10*3/uL Abs Immat Gran (auto) (0.00-0.03) X10*3/uL Absolute Neuts (auto) (2.0-8.3) x10*3/uL Absolute Nucleated RBC (0.0-0.012) X10*3/uL Nucleated RBC % (auto) (0.0-0.2) /100WBC VBG pH 7.35 (7.32-7.43) VBG pCO2 86 mmHg VBG pO2 70 mmHg VBG HCO3 48 H (22-26) mmol/L VBG O2 Saturation 92.0 % VBG Base Excess 18.1 mmol/L Sodium (135-145) mmol/L Potassium (3.3-5.1) mmol/L Chloride (96-108) mmol/L Carbon Dioxide (22-29) mmol/L Anion Gap (12-20) BUN (9-16) mg/dL Creatinine (0.5-1.4) mg/dL Estim Creat Clear Calc Estimated GFR Random Glucose (60-115) mg/dL Lactic Acid (0.5-2.0) mmol/L Calcium (8.4-10.2) mg/dL Magnesium (1.6-2.6) mg/dL Total Bilirubin (0.0-1.0) mg/dL AST (5-31) U/L ALT (0-31) U/L Alkaline Phosphatase (39-117) U/L Troponin I High Sens (<3.5-17.0) ng/L B-Natriuretic Peptide (<100) pg/mL Total Protein (6.5-8.0) g/dL Albumin (3.5-5.0) g/dL Ethyl Alcohol mg/dL <Aldair Garber MD - Last Filed: 09/03/21 23:00> Imaging Data Chest x-ray: Attestation: I personally reviewed and interpreted this imaging study as follows: <GABRIELA Beckman - Last Filed: 09/03/21 21:08> My impression: No acute process. <GABRIELA Beckman - Last Filed: 09/03/21 21:08> Radiologist's impression: EXAMINATION: XR CHEST CLINICAL INFORMATION: Shortness of breath. COMPARISON: Chest radiographs on 08/26/2021 TECHNIQUE: Frontal view of the chest was obtained. FINDINGS: The cardiomediastinal and hilar contours appear stable. No pneumothorax identified. No pleural effusions identified. No new consolidations. XR/XR chest 1V IMPRESSION: No acute process identified. Dictated By: Jamison Bragg MD Signed By: Electronically signed by Jamison Bragg MD 09/03/211907 <GABRIELA Beckman - Last Filed: 09/03/21 21:08> CT scan - head: Attestation: I personally reviewed and interpreted this imaging study as follows: <GABRIELA Beckman - Last Filed: 09/03/21 21:08> My impression: No acute process. <GABRIELA Beckman - Last Filed: 09/03/21 21:08> Radiologist's impression: EXAMINATION: CT HEAD WITHOUT CONTRAST CLINICAL INFORMATION: Mental status change? COMPARISON: 08/28/2021 TECHNIQUE: Contiguous axial imaging was performed from the skull base to vertex without intravenous administration of contrast. This CT examination was performed using dose optimization techniques as appropriate, variously including the following: *Automated exposure control *Adjustment of mA and/or kV according to patient size (this includes techniques or standardized protocols for targeted exams where dose is matched to indication/reason for exam; i.e. extremities or head) *Use of iterative reconstruction technique DLP: 684 mGy-cm FINDINGS: There is no evidence of acute intracranial hemorrhage or territorial infarction. No abnormal mass effect or midline shift is seen. Trent to white matter differentiation is well preserved. No extra-axial fluid collections are identified. The ventricles are normal in size. Symmetrical white matter changes most consistent with terminal supply white matter chronic lacunar ischemic/infarct involving the marks radiata and centrum semiovale. The osseous structures and soft tissues are normal. The mastoid air cells and visualized portions of the paranasal sinuses are well aerated. CT/CT head/brain wo con IMPRESSION: No acute intracranial pathology. Dictated By: Woo Bach MD Signed By: Electronically signed by Woo Bach MD 09/03/212030 <GABRIELA Beckman - Last Filed: 09/03/21 21:08> ECG Data Attestation: I personally reviewed and interpreted this ECG as follows: <GABRIELA Beckman - Last Filed: 09/03/21 21:08> Prior ECG tracings: available for review <GABRIELA Beckman - Last Filed: 09/03/21 21:08> Interpretation: Vent. Rate: 117 BPM ? ? Atrial Rate: 117 BPM P-R Int: 126 ms? QRS Dur: 076 ms QT Int: 316 ms ? ? ? P-R-T Axes: 077 051 073 degrees QTc Int: 440 ms ? Sinus tachycardia Otherwise normal ECG When compared with ECG of 26-AUG-2021 22:47 Premature atrial complexes are no longer Present T wave inversion no longer evident in Inferior leads DD/ 41 <GABRIELA Beckman - Last Filed: 09/03/21 21:08> Discharge Plan Discharge Patient Disposition: Admitted As Inpatient <GABRIELA Beckman - Last Filed: 09/03/21 21:08> Prescriptions: No Action albuterol sulfate 2.5 mg /3 mL (0.083 %) solution for nebulization 1 vial inhalation 6XD uwesbiblpu-dlczasepckyde-zrfd 50-325-40 mg tablet 1 - 2 tab PO Q12H PRN (Reason: Headache) diltiazem HCl 360 mg capsule,extended release 24 hr 1 cap PO DAILY lorazepam 2 mg tablet 1 tab PO Q6H PRN (Reason: anxiety) Spiriva with HandiHaler 18 mcg capsule, w/inhalation device 1 cap inhalation DAILY ipratropium bromide 0.02 % solution 2.5 ml inhalation Q6H PRN (Reason: wheezing) <GABRIELA Beckman Last Filed: 09/03/21 21:08>
--- NOTE | 2021-09-03 17:12 | ECG_ITS ---
Test Reason : DYSPNEA Blood Pressure : / mmHG Vent. Rate : 117 BPM Atrial Rate : 117 BPM P-R Int : 126 ms QRS Dur : 076 ms QT Int : 316 ms P-R-T Axes : 077 051 073 degrees QTc Int : 440 ms Sinus tachycardia Otherwise normal ECG When compared with ECG of 26-AUG-2021 22:47, Premature atrial complexes are no longer Present T wave inversion no longer evident in Inferior leads Referred By: April Paredes Electronically Signed By:GABI BALBUENA
[2021-09-03 17:31] VITALS: BP 136/67; BP 137/79; PULSE 110; PULSE 124; RESP 20; TEMP 37.7; O2SAT 99; BMI 28.8
[2021-09-03 17:31] LABS: MANUAL DIFF FLAG NO
[2021-09-03 17:32] LABS: Basophils Percent Auto 0.2 % (0-2); Eosinophils Absolute Auto 0.4 X10*3/uL (0.0-0.4); Eosinophils Percent Auto 2.7 % (0-4); Hematocrit 37.4 % (37.0-47.0); Hemoglobin 11.4 g/dl (12.0-16.0); Imm Gran Abs Auto 0.14 X10*3/uL (0.00-0.03); Imm Gran Pct Auto 1.1 % (0.0-0.4); Lymphocytes Absolute Auto 2.1 X10*3/uL (1.2-4.9); Lymphocytes Percent Auto 16.2 % (20-40); Mean Corpuscular HGB Conc 30.5 g/dl (31.0-35.0); Mean Corpuscular Hemoglobin 28.9 pg (27.0-33.0); Mean Corpuscular Volume 94.9 fL (80.0-98.0); Mean Platelet Volume 9.1 fL (9.4-12.3); Monocytes Absolute Auto 1.3 X10*3/uL (0.1-1.2); Monocytes Percent Auto 10.2 % (2-11); Neutrophils Percent Auto 69.6 % (45-73); Platelet Count 384 X10*3/uL (160-400); Red Blood Count 3.94 X10*6/uL (4.20-5.50); Red Cell Distribution Width 15.7 % (11.0-16.0); White Blood Count 12.9 X10*3/uL (4.8-10.8)
[2021-09-03 17:56] LABS: B Type Natriuretic Peptide 14 pg/mL (<100)
[2021-09-03 17:57] LABS: Troponin-I High Sensitivity 4.4 ng/L (<3.5-17.0)
[2021-09-03 18:06] LABS: Alanine Aminotransferase 51 U/L (0-31); Albumin Level 4.1 g/dL (3.5-5.0); Alkaline Phosphatase 78 U/L (39-117); Anion Gap 11 (12-20); Aspartate Amino Transferase 19 U/L (5-31); Bilirubin Total < 0.2 mg/dL (0.0-1.0); Blood Urea Nitrogen 28 mg/dL (9-16); Calcium 9.5 mg/dL (8.4-10.2); Chloride 99 mmol/L (96-108); Creatinine Clr Calc Pharmacy 55.5; Estimated Glomerular Filt Rate > 60; Glucose Random 133 mg/dL (60-115); Magnesium 2.3 mg/dL (1.6-2.6); Potassium 4.2 mmol/L (3.3-5.1); Sodium 146 mmol/L (135-145); Total Protein 6.7 g/dL (6.5-8.0)
[2021-09-03 19:33] LABS: Carbon Dioxide 40 mmol/L (22-29)
[2021-09-03 19:41] LABS: VBG Base Excess 18.1 mmol/L; VBG HCO3 48 mmol/L (22-26); VBG pCO2 86 mmHg; VBG pH 7.35 (7.32-7.43); VBG pO2 70 mmHg
[2021-09-03 19:44] LABS: Ethanol < 10 mg/dL; Lactic Acid 0.8 mmol/L (0.5-2.0)
[2021-09-03 19:52] LABS: Venous Blood Gas Refer to POC result
[2021-09-03] MEDS: 0.9 % Sodium Chloride 500 ML IV (20:19)
[2021-09-03] MEDS: Butalb/Acetamin/Caff 50/325/40 TABLET 1 TAB PO (20:45)
--- NOTE | 2021-09-03 20:49 | PHA.MEDREC ---
Pharmacy Consult ? Medication Reconciliation Pharmacy has completed the medication reconciliation. One was done previously on 08/28. Used claim history.
--- NOTE | 2021-09-03 22:42 | MHC.CM.ED ---
CM met with patient at request of April OCHOA. Pt lives with her in a motel in [place]. Has a wheelchair and uses home oxygen at 4L. PCP is Mickey Guaman. Pt is Unvaccinated for restorationist reasons. Pt is Covid positive. Tells CM she was at [place] yesterday and was diagnosed with Covid. Became weaker today and so she came to [facility]. Pt states she is too weak to walk and can usually walk in her hotel room. CM explained that a PT evaluation is pending for her, but that placement for her for STR will be difficult because she has Covid 19 and because she is not vaccinated. Spoke with Dr. Garber regarding possible Paxlovid for this patient. Dr. Garber obtained Medical records from [place]. Pt was diagnosed on 08/31 and had sx for maybe 1 day. Pt refused all treatment and antivirals at [place], stating that she will pray. Dr. Garber will speak with hospitalist regarding possible admission. No referrals placed at this time, pending possible admission and PT pending. CM will follow for d/c needs.
--- NOTE | 2021-09-03 23:08 | PM.IMHP ---
History of Present Illness Date of Service: 09/03/21 Chief Complaint: SOB 66-year-old female with past medical history of COPD on baseline 2 L of oxygen, anxiety, HTN who presents to the hospital with complaints of worsening respiratory symptoms. Patient reports that for about 5 days she has had shortness of breath, cough, sputum production, she went to the hospital and was tested positive for COVID-19 pneumonia on 08/31 she was admitted for 1 day, was treated for COPD exacerbation and sent home. Patient reports that she continued to have worsening symptoms, non resolving, and therefore decided to come to the hospital. She reports wheezing, dyspnea on minimal exertion, no fever some chills, no chest pain, no abdominal pain nausea or vomiting, no diarrhea constipation, no urinary symptoms and no lower extremity edema. On arrival to the ED patient's vital significant for temperature of 99.8 heart rate of 110, respiratory rate of 26 Labs are significant for WBC count of 12.9, hemoglobin of 11.4, hematocrit 37.4, pH of 7.35, CO2 of 48, BUN of 28, COVID-19 positive Review of Systems Review of Systems: Yes all other systems are reviewed and are negative [facility] Medical History Anxiety Asthma Bronchitis Chronic respiratory failure COPD (chronic obstructive pulmonary disease) Diverticulitis Dizziness Emphysema lung Hypertension Otitis media Vertigo Family History Other No family history of coronary artery disease Surgical History History of breast surgery History of laparotomy Social History Household Members: Spouse Housing: Other Housing Other:: HOTEL ROOM Do you presently have visiting nurse or other home services: No Alcohol intake: current Alcohol intake frequency: 0-2 drinks per day Patient Tobacco Use Status: Former Tobacco user Advance Directives: No Advance Directives Information Provided: No service: No Current occupational status: disabled Meds Allergies Allergy/AdvReac Type Severity Reaction Status Date / Time morphine [MORPHINE] Allergy Severe HIVES, Verified 10/04/20 22:39 high temp, nausea tetracycline [TETRACYCLINE] Allergy Severe VOMITING Verified 10/04/20 22:39 tramadol [TRAMADOL] Allergy Severe SWEATING, Verified 10/04/20 22:39 VOMITING, vomiting amoxicillin [From AUGMENTIN] AdvReac Severe CONSTIPATIO Verified 10/04/20 22:39 N clavulanic acid AdvReac Severe CONSTIPATIO Verified 10/04/20 22:39 [From AUGMENTIN] N codeine [CODEINE] AdvReac Severe NAUSEA Verified 10/04/20 22:39 levofloxacin [From LEVAQUIN] AdvReac Severe CONSTIPATIO Verified 10/04/20 22:39 N Sulfa(Sulfonamide Allergy Unknown Unknown Uncoded 10/04/20 22:39 Antibiotics) Active Medications: Current Medications Acetaminophen (Acetaminophen 325 Mg Tablet) 650 mg PO Q6H PRN PRN Reason: Pain, Mild (Pain Scale 1-3) Enoxaparin Sodium (Enoxaparin Sodium 40 Mg/0.4 Ml Syringe) 40 mg SUBCUT Q24H NARCISA Ondansetron HCl (Ondansetron Hcl 4 Mg/2 Ml Vial) 4 mg IVPUSH Q8H PRN PRN Reason: Nausea and Vomiting Pharmacy Consult (Consult Rx Perform Med Rec) 1 each MISCELLANE ONCE PRN PRN Reason: Consult order Pharmacy Consult (Consult Rx Perform Med Rec) 1 each MISCELLANE ONCE PRN PRN Reason: Consult order Sodium Chloride (0.9 % Sodium Chloride Flush 3 Ml Syringe) 3 ml IVFLUSH QSHIFT [facility] Home Medications Medication Instructions Recorded Confirmed Last Taken Type albuterol sulfate 2.5 mg/3 mL 1 vial inhalation 6XD 10/04/20 09/03/21 07/08/21 History (0.083 %) solution for nebulization fpouzgfftn-wxojjvcifclzs-wokwujri 1 - 2 tab PO Q12H PRN Headache 10/04/20 09/03/21 07/08/21 History 50 mg-325 mg-40 mg tablet diltiazem HCl 360 mg capsule,24 1 cap PO DAILY 07/08/21 09/03/21 07/08/21 History hr,extended release lorazepam 2 mg tablet 1 tab PO Q6H PRN anxiety 07/08/21 09/03/21 07/08/21 History tiotropium bromide 18 mcg capsule 1 cap inhalation DAILY 08/27/21 09/03/21 Unknown History with inhalation device (Spiriva with HandiHaler) ipratropium bromide 0.02 % 2.5 ml inhalation Q6H PRN wheezing 09/03/21 09/03/21 Unknown History solution for inhalation Physical Exam Vital Signs and Narrative: Vital Signs: Last Vital Signs Temp 99.8 F 09/03/21 17:31 Pulse 110 H 09/03/21 17:31 Resp 20 09/03/21 17:31 BP 137/79 09/03/21 17:31 Pulse Ox 99 09/03/21 17:31 O2 Del Method 09/03/21 17:31 Oxygen Flow Rate 5 09/03/21 17:31 BMI result Body Mass Index 28.8 Const: General: cooperative and no acute distress Orientation/consciousness: patient oriented x3 Eyes: General: appearance normal, both eyes and all related structures Resp: Other: Patient in clear respiratory distress using accessory muscles and tachypneic but able to talk, and is eating Effort & Inspection: audible wheezes and respiratory distress Cardio: Rate: regular rate Rhythm: regular rhythm GI: Palpation (GI): Soft to palpation Auscultation: normal bowel sounds Skin: General skin exam: no rashes or lesions noted Neuro: General: patient oriented x3 Cognition (Neuro): normal cognition Extrem: General: Yes normal to inspection and Yes no pedal edema Results Labs CBC and Chem 7: 09/03/21 17:22 09/03/21 17:22 Labs: Laboratory Results - last 24 hr 09/03/21 09/03/21 09/03/21 17:22 17:22 17:22 MCV 94.9 MCH 28.9 MCHC 30.5 L RDW 15.7 Plt Count 384 D MPV 9.1 L Immature Gran % (Auto) 1.1 H Neut % (Auto) 69.6 Lymph % (Auto) 16.2 L [place] % (Auto) 10.2 Eos % (Auto) 2.7 Baso % (Auto) 0.2 Lymph # (Auto) 2.1 [place] # (Auto) 1.3 H Eos # (Auto) 0.4 Baso # (Auto) 0.0 Abs Immat Gran (auto) 0.14 H Absolute Neuts (auto) 9.0 H Absolute Nucleated RBC 0.000 Nucleated RBC % (auto) 0.0 VBG pH VBG pCO2 VBG pO2 VBG HCO3 VBG O2 Saturation VBG Base Excess Anion Gap 11 L Estim Creat Clear Calc 55.5 Estimated GFR > 60 Random Glucose 133 H Lactic Acid Calcium 9.5 Magnesium 2.3 Total Bilirubin < 0.2 AST 19 ALT 51 H Alkaline Phosphatase 78 B-Natriuretic Peptide 14 Total Protein 6.7 Albumin 4.1 Ethyl Alcohol 09/03/21 09/03/21 09/03/21 19:09 19:09 19:23 MCV MCH MCHC RDW Plt Count MPV Immature Gran % (Auto) Neut % (Auto) Lymph % (Auto) [place] % (Auto) Eos % (Auto) Baso % (Auto) Lymph # (Auto) [place] # (Auto) Eos # (Auto) Baso # (Auto) Abs Immat Gran (auto) Absolute Neuts (auto) Absolute Nucleated RBC Nucleated RBC % (auto) VBG pH 7.35 VBG pCO2 86 VBG pO2 70 VBG HCO3 48 H VBG O2 Saturation 92.0 VBG Base Excess 18.1 Anion Gap Estim Creat Clear Calc Estimated GFR Random Glucose Lactic Acid 0.8 Calcium Magnesium Total Bilirubin AST ALT Alkaline Phosphatase B-Natriuretic Peptide Total Protein Albumin Ethyl Alcohol < 10 Imaging Radiologist's Impressions: Impressions Chest X-Ray 09/03/21 18:12 IMPRESSION: No acute process identified. Head CT 09/03/21 19:59 IMPRESSION: No acute intracranial pathology. Assessment and Plan (1) COPD exacerbation: Status: Acute (2) Chronic obstructive pulmonary disease with hypoxia: Status: Acute (3) COVID-19: Status: Acute Plan 66-year-old female a past medical history of COPD and recently diagnosed COVID-19 presents to the hospital with worsening respiratory status # acute COPD exacerbation - secondary to COVID 19 infection - has no hypoxia, but significant tachypnea, cough, sputum production - will treat with dexamethasone IV, DuoNeb p.r.n. as well as schedule - will seen at [facility] and was admitted for 1 day, with persistent symptoms - monitor respiratory status - no evidence of pneumonia on chest x-ray # acute on chronic pulmonary disease with hypoxia - currently on 2 L of baseline oxygen satting in the low 90s - no evidence of pneumonia - likely secondary to COPD exacerbation in the setting of COVID-19 infection - continue O2 supplement - DuoNeb, dexamethasone # COVID-19 infection - no evidence of pneumonia - dexamethasone daily - follow respiratory status DVT prophylaxis: Lovenox Given acute COPD exacerbation and need for IV steroids and scheduled breathing treatments given failed outpatient therapy, patient will require a minimal 2 night hospital stay for further management and evaluation Quality Stroke Does the patient have a stroke diagnosis?: No VTE Prior VTE?: No VTE Risk Level:: Medical - moderate - high VTE Device Contraindication: Treatment Not Indicated VTE Drug Contraindication: N/A - Med Ordered
[2021-09-03] MEDS: Benzonatate 100 MG CAPSULE PO (23:58)
[2021-09-03] MEDS: Enoxaparin Sodium 40 MG/0.4 ML SYRINGE SUBCUT (23:58)
[2021-09-03] MEDS: LORazepam 1 MG TABLET 2 MG PO (23:58)
[2021-09-04] VITALS (11 sets, daily range): BP systolic 141–180; BP diastolic 67–84; PULSE 104–130; RESP 16–26; TEMP 36.7–37.8; O2SAT 92–99
[2021-09-04] MEDS: Albuterol/Iprat 2.5/0.5MG 3 ML AMPUL.NEB INHALE ×3 (00:33→20:20)
[2021-09-04] MEDS: Butalb/Acetamin/Caff 50/325/40 TABLET 2 TAB PO ×2 (01:45→13:46)
[2021-09-04] MEDS: LORazepam 1 MG TABLET 2 MG PO ×2 (05:25→22:33)
[2021-09-04 05:43] LABS: COVID-19 Test Positive (Negative)
[2021-09-04 06:04] LABS: Appearance Urine HAZY; Color Urine YELLOW; Glucose Urine UA NEG (NEG); Leukocyte Esterase Urine NEG (NEG); Nitrite Urine NEG (NEG); PH 5.5 (5.0-8.0); Specific Gravity - Urine >= 1.030 (1.005-1.025); Urine Blood NEG (NEG); Urine Ketones NEG (NEG); Urine Protein NEG (NEG-TRACE)
[2021-09-04 07:19] LABS: MANUAL DIFF FLAG NO
[2021-09-04 07:21] LABS: Basophils Percent Auto 0.1 % (0-2); Eosinophils Absolute Auto 0.3 X10*3/uL (0.0-0.4); Eosinophils Percent Auto 2.9 % (0-4); Hematocrit 35.7 % (37.0-47.0); Hemoglobin 10.8 g/dl (12.0-16.0); Imm Gran Abs Auto 0.07 X10*3/uL (0.00-0.03); Imm Gran Pct Auto 0.8 % (0.0-0.4); Lymphocytes Absolute Auto 1.3 X10*3/uL (1.2-4.9); Lymphocytes Percent Auto 14.9 % (20-40); Mean Corpuscular HGB Conc 30.3 g/dl (31.0-35.0); Mean Corpuscular Hemoglobin 29.2 pg (27.0-33.0); Mean Corpuscular Volume 96.5 fL (80.0-98.0); Monocytes Absolute Auto 1.3 X10*3/uL (0.1-1.2); Monocytes Percent Auto 14.5 % (2-11); Neutrophils Absolute Auto 5.7 x10*3/uL (2.0-8.3); Neutrophils Percent Auto 66.8 % (45-73); Platelet Count 320 X10*3/uL (160-400); Red Cell Distribution Width 15.9 % (11.0-16.0); White Blood Count 8.6 X10*3/uL (4.8-10.8)
[2021-09-04 07:35] LABS: Anion Gap 11 (12-20); Blood Urea Nitrogen 14 mg/dL (9-16); Carbon Dioxide 39 mmol/L (22-29); Chloride 98 mmol/L (96-108); Creatinine Clr Calc Pharmacy 70.7; Estimated Glomerular Filt Rate > 60; Glucose Random 102 mg/dL (60-115); Potassium 4.3 mmol/L (3.3-5.1); Sodium 144 mmol/L (135-145)
--- NOTE | 2021-09-04 07:47 | PC.NURSE ---
Pt A&Ox4, asking to leave AMA, pulled out her IV. made aware. Awaiting further orders, call campos within reach. Will continue to monitor.
--- NOTE | 2021-09-04 09:22 | PM.DS ---
DS: Providers Provider Date of Service: 09/04/21 Date of admission: 09/03/21 23:06 Primary care physician: Unknown Physician DS: Diagnosis Discharge Diagnosis (1) COPD exacerbation: Status: Acute (2) Chronic obstructive pulmonary disease with hypoxia: Status: Acute (3) COVID-19: Status: Acute DS: Summary Hospital Course Hospital Course: 66-year-old female with past medical history of COPD on baseline 2 L of oxygen, anxiety, HTN who presents to the hospital with complaints of worsening respiratory symptoms.? Patient reports that for about 5 days she has had shortness of breath, cough, sputum production, she went to the hospital and was tested positive for COVID-19 pneumonia on 08/31 she was admitted for 1 day, was treated for COPD exacerbation and sent home.? Patient reports that she continued to have worsening symptoms, non resolving, and therefore decided to come to the hospital.? She reports wheezing, dyspnea on minimal exertion, no fever some chills, no chest pain, no abdominal pain nausea or vomiting, no diarrhea constipation, no urinary symptoms and no lower extremity edema.? On arrival to the ED patient's vital significant for temperature of 99.8 heart rate of 110, respiratory rate of 26 Labs are significant for WBC count of 12.9, hemoglobin of 11.4, hematocrit 37.4, pH of 7.35, CO2 of 48, BUN of 28, COVID-19 positive. Hospital course: patient was admitted for copd exceerbation and recent covid infection-started on nebs steriods -so far slight improvement ,still sob and talking with short sentences and stops in between due to sob -Risk of leaving against medical advice discussed with patient she and her in detail length including worseing sob/respiratory failure and covid ,including -she understand and still wanted to leave. given p.o. steroids upon discharge. patient and her both said that if if her condition worsen they will go to the nearest emergency room. Assessment and plan coordination time spent 50 minutes. Time Spent with Patient Time attestation: Total time spent providing and/or coordinating discharge services: Discharge coordination time: Greater than 30 minutes Quality: Safe Use of Opioids Does Pt have an Active Cancer Diagnosis on the Problem List?: No Quality: Stroke Does the patient have a stroke diagnosis?: No Physical Exam Vital Signs: Vital Signs: Last Vital Signs Temp 98.6 F 09/04/21 06:20 Pulse 117 H 09/04/21 06:20 Resp 22 H 09/04/21 06:20 BP 156/74 H 09/04/21 06:20 Pulse Ox 96 09/04/21 06:20 O2 Del Method 09/04/21 06:20 O2 Flow Rate 4 09/04/21 06:20 Oxygen Flow Rate 5 09/03/21 17:31 BMI result Body Mass Index 28.8 Appearance: Alert.? Oriented X3.? still sob cvs: rrr(tachycardic), [id number] . res: air entry seems diminshed , b/l wheezing abd: no rebound or guarding ,nt, bs present. ext pulses present , no cyanosis . neuro: axo3 , nonfocal. DS: Data Data Completed and Pending Labs on day of discharge: Laboratory Results - last 24 hr 09/03/21 09/03/21 09/03/21 17:22 17:22 17:22 WBC 12.9 H RBC 3.94 L Hgb 11.4 L Hct 37.4 MCV 94.9 MCH 28.9 MCHC 30.5 L RDW 15.7 Plt Count 384 D MPV 9.1 L Immature Gran % (Auto) 1.1 H Neut % (Auto) 69.6 Lymph % (Auto) 16.2 L [place] % (Auto) 10.2 Eos % (Auto) 2.7 Baso % (Auto) 0.2 Lymph # (Auto) 2.1 [place] # (Auto) 1.3 H Eos # (Auto) 0.4 Baso # (Auto) 0.0 Abs Immat Gran (auto) 0.14 H Absolute Neuts (auto) 9.0 H Absolute Nucleated RBC 0.000 Nucleated RBC % (auto) 0.0 VBG pH VBG pCO2 VBG pO2 VBG HCO3 VBG O2 Saturation VBG Base Excess Sodium 146 H Potassium 4.2 Chloride 99 Carbon Dioxide 40 H* D Anion Gap 11 L BUN 28 H D Creatinine 0.79 Estim Creat Clear Calc 55.5 Estimated GFR > 60 Random Glucose 133 H Lactic Acid Calcium 9.5 Magnesium 2.3 Total Bilirubin < 0.2 AST 19 ALT 51 H Alkaline Phosphatase 78 Troponin I High Sens 4.4 B-Natriuretic Peptide Total Protein 6.7 Albumin 4.1 Urine Color Urine Appearance Urine pH Ur Specific [place] Urine Protein Urine Glucose (UA) Urine Ketones Urine Blood Urine Nitrite Ur Leukocyte Esterase Ethyl Alcohol COVID-19 (SEAN) COVID-19 [employer] Com 09/03/21 09/03/21 09/03/21 17:22 19:09 19:09 WBC RBC Hgb Hct MCV MCH MCHC RDW Plt Count MPV Immature Gran % (Auto) Neut % (Auto) Lymph % (Auto) [place] % (Auto) Eos % (Auto) Baso % (Auto) Lymph # (Auto) [place] # (Auto) Eos # (Auto) Baso # (Auto) Abs Immat Gran (auto) Absolute Neuts (auto) Absolute Nucleated RBC Nucleated RBC % (auto) VBG pH VBG pCO2 VBG pO2 VBG HCO3 VBG O2 Saturation VBG Base Excess Sodium Potassium Chloride Carbon Dioxide Anion Gap BUN Creatinine Estim Creat Clear Calc Estimated GFR Random Glucose Lactic Acid 0.8 Calcium Magnesium Total Bilirubin AST ALT Alkaline Phosphatase Troponin I High Sens B-Natriuretic Peptide 14 Total Protein Albumin Urine Color Urine Appearance Urine pH Ur Specific [place] Urine Protein Urine Glucose (UA) Urine Ketones Urine Blood Urine Nitrite Ur Leukocyte Esterase Ethyl Alcohol < 10 COVID-19 (SEAN) COVID-[employer] 09/03/21 09/04/21 09/04/21 19:23 05:30 05:59 WBC RBC Hgb Hct MCV MCH MCHC RDW Plt Count MPV Immature Gran % (Auto) Neut % (Auto) Lymph % (Auto) [place] % (Auto) Eos % (Auto) Baso % (Auto) Lymph # (Auto) [place] # (Auto) Eos # (Auto) Baso # (Auto) Abs Immat Gran (auto) Absolute Neuts (auto) Absolute Nucleated RBC Nucleated RBC % (auto) VBG pH 7.35 VBG pCO2 86 VBG pO2 70 VBG HCO3 48 H VBG O2 Saturation 92.0 VBG Base Excess 18.1 Sodium Potassium Chloride Carbon Dioxide Anion Gap BUN Creatinine Estim Creat Clear Calc Estimated GFR Random Glucose Lactic Acid Calcium Magnesium Total Bilirubin AST ALT Alkaline Phosphatase Troponin I High Sens B-Natriuretic Peptide Total Protein Albumin Urine Color YELLOW Urine Appearance HAZY Urine pH 5.5 Ur Specific [place] >= 1.030 H Urine Protein NEG Urine Glucose (UA) NEG Urine Ketones NEG Urine Blood NEG Urine Nitrite NEG Ur Leukocyte Esterase NEG Ethyl Alcohol COVID-19 (SEAN) Positive A COVID-19 two.42.solutions See Note 07/30/22 07/30/22 07:08 07:08 WBC 8.6 RBC 3.70 L Hgb 10.8 L Hct 35.7 L MCV 96.5 MCH 29.2 MCHC 30.3 L RDW 15.9 Plt Count 320 MPV 9.0 L Immature Gran % (Auto) 0.8 H Neut % (Auto) 66.8 Lymph % (Auto) 14.9 L [place] % (Auto) 14.5 H Eos % (Auto) 2.9 Baso % (Auto) 0.1 Lymph # (Auto) 1.3 [place] # (Auto) 1.3 H Eos # (Auto) 0.3 Baso # (Auto) 0.0 Abs Immat Gran (auto) 0.07 H Absolute Neuts (auto) 5.7 Absolute Nucleated RBC 0.000 Nucleated RBC % (auto) 0.0 VBG pH VBG pCO2 VBG pO2 VBG HCO3 VBG O2 Saturation VBG Base Excess Sodium 144 Potassium 4.3 Chloride 98 Carbon Dioxide 39 H Anion Gap 11 L BUN 14 Creatinine 0.62 Estim Creat Clear Calc 70.7 Estimated GFR > 60 Random Glucose 102 Lactic Acid Calcium 9.0 Magnesium Total Bilirubin AST ALT Alkaline Phosphatase Troponin I High Sens B-Natriuretic Peptide Total Protein Albumin Urine Color Urine Appearance Urine pH Ur Specific [place] Urine Protein Urine Glucose (UA) Urine Ketones Urine Blood Urine Nitrite Ur Leukocyte Esterase Ethyl Alcohol COVID-19 (SEAN) COVID-19 Clin Com Additional Comments Additional comments: CT/CT head/brain wo con IMPRESSION: No acute intracranial pathology . XR/XR chest 1V IMPRESSION: No acute process identified. Discharge Plan Discharge Patient Disposition: Left Against Medical Advice Discharge Diagnosis: copd excerebation,covid infection Referrals: Physician,Unknown J [Primary Care Provider] - 1 Week Discharge Medications: New benzonatate 100 mg Capsule 100 mg PO TID PRN (Reason: Cough) Qty: 10 0RF dexamethasone 6 mg tablet 6 mg PO DAILY Qty: 9 0RF Continued albuterol sulfate 2.5 mg /3 mL (0.083 %) solution for nebulization 1 vial inhalation 6XD [id number] 50-325-40 mg tablet 1 - 2 tab PO Q12H PRN (Reason: Headache) diltiazem HCl 360 mg capsule,extended release 24 hr 1 cap PO DAILY lorazepam 2 mg tablet 1 tab PO Q6H PRN (Reason: anxiety) Spiriva with HandiHaler 18 mcg capsule, w/inhalation device 1 cap inhalation DAILY ipratropium bromide 0.02 % solution 2.5 ml inhalation Q6H PRN (Reason: wheezing) Discharge Orders: Discharge Order (Routine); Ordered 09/04/21 Ordered By: Fang Joshua Diet: Advance to usual diet Activity on Discharge: As tolerated Care Plan Goals: patient was admitted for copd exceerbation and recent covid infection-started on nebs steriods -so far slight improvement ,still sob and talking with short sentences and stops in between due to sob -Risk of leaving against medical advice discussed with patient she and her in detail length she understand- about understand and still wanted to leave. given p.o. steroids upon discharge. patient and her both said that if if her condition worsen they will go to the nearest emergency room. Health Concerns: as above. Plan of Treatment: As above. Assessment: As above.
--- NOTE | 2021-09-04 09:40 | MHC.CM.PN ---
Addendum entered by Lily Agarwal 09/04/21 09:43: Patient left AMA prior to receiving IMM Original Note: Patient left AMA prior to seeing CM this am. She was seen by CM in ED last PM
[2021-09-04] MEDS: dilTIAZem HCL CD 180 MG CAP.ER.24H 360 MG PO (11:50)
[2021-09-04] MEDS: dexAMETHasone sod phosphate 4 MG/ML VIAL 6 MG IVPUSH (11:50)
--- NOTE | 2021-09-04 12:42 | P.PNIM_ITS ---
Subjective Subjective Date of Service: 09/04/21 Interval History: sob , fall Review of Systems still feels sob and talking with broken sentences denies any nausea or vomiting Physical Exam Vital Signs: Vital Signs: Last Vital Signs Temp 98.6 F 09/04/21 06:20 Pulse 123 H 09/04/21 10:48 Resp 22 H 09/04/21 10:48 BP 180/78 H 09/04/21 10:48 Pulse Ox 98 09/04/21 10:48 O2 Del Method 09/04/21 10:48 O2 Flow Rate 4 09/04/21 10:48 Oxygen Flow Rate 5 09/03/21 17:31 BMI result Body Mass Index 28.8 ?Appearance: Alert.? Oriented X3.? still sob cvs: rrr(tachycardic), [id number] . res: air entry seems diminshed , b/l wheezing abd: no rebound or guarding ,nt, bs present. ext pulses present , no cyanosis . neuro: axo3 , nonfocal. Objective Data Active Medications Acetaminophen (Acetaminophen 325 Mg Tablet) 650 mg PO Q6H PRN PRN Reason: Pain, Mild (Pain Scale 1-3) Acetaminophen/Butalbital/Caffeine (Butalb/Acetamin/Caff 50/325/40 Tablet) 2 tab PO Q12H PRN PRN Reason: Shortness of Breath/Wheezing Last Admin: 09/04/21 01:45 Dose: 2 tab Documented By: SANDRA Albuterol/Ipratropium (Albuterol/Iprat 2.5/0.5mg 3 Ml Ampul.Neb) 3 ml INHALE RQ4H PRN PRN Reason: Shortness of Breath/Wheezing Last Admin: 09/04/21 00:33 Dose: 3 ml Documented By: LINDA Albuterol/Ipratropium (Albuterol/Iprat 2.5/0.5mg 3 Ml Ampul.Neb) 3 ml INHALE RQ4H WHILE AWAKE NARCISA Last Admin: 09/04/21 11:38 Dose: Not Given Documented By: FLORENCIO Non-Admin Reason: Patient Refused Benzonatate (Benzonatate 100 Mg Capsule) 100 mg PO TID PRN PRN Reason: Cough Last Admin: 09/03/21 23:58 Dose: 100 mg Documented By: SANDRA Dexamethasone Sodium Phosphate (Dexamethasone Sod Phosphate 4 Mg/Ml Vial) 6 mg IVPUSH DAILY [facility] Last Admin: 09/04/21 11:50 Dose: 6 mg Documented By: NATALIA Diltiazem HCl (Diltiazem Hcl Cd 180 Mg Cap.Er.24h) 360 mg PO DAILY [facility]; Protocol Last Admin: 09/04/21 11:50 Dose: 360 mg Documented By: NATALIA Docusate Sodium (Docusate Sodium 100 Mg Capsule) 100 mg PO DAILY PRN PRN Reason: Constipation Enoxaparin Sodium (Enoxaparin Sodium 40 Mg/0.4 Ml Syringe) 40 mg SUBCUT Q24H [facility] Last Admin: 09/03/21 23:58 Dose: 40 mg Documented By: SANDRA Lorazepam (Lorazepam 1 Mg Tablet) 2 mg PO Q6H PRN PRN Reason: anxiety Last Admin: 09/04/21 05:25 Dose: 2 mg Documented By: SANDRA Ondansetron HCl (Ondansetron Hcl 4 Mg/2 Ml Vial) 4 mg IVPUSH Q8H PRN PRN Reason: Nausea and Vomiting Pharmacy Consult (Consult Rx Perform Med Rec) 1 each MISCELLANE ONCE PRN PRN Reason: Consult order Pharmacy Consult (Consult Rx Perform Med Rec) 1 each MISCELLANE ONCE PRN PRN Reason: Consult order Sodium Chloride (0.9 % Sodium Chloride Flush 3 Ml Syringe) 3 ml IVFLUSH QSHIFT [facility] Last Admin: 09/04/21 09:01 Dose: Not Given Documented By: NATALIA Non-Admin Reason: No Access Tiotropium [place] (Tiotropium [place] 18 Mcg Cap.W.Dev) 1 puff INHALE RDAILY [facility] Last Admin: 09/04/21 07:38 Dose: Not Given Documented By: FLORENCIO Non-Admin Reason: Patient Refused Labs CBC & Chem 7: 09/04/21 07:08 09/04/21 07:08 Labs: Laboratory Results - last 24 hr 09/03/21 09/03/21 09/03/21 17:22 17:22 17:22 MCV 94.9 MCH 28.9 MCHC 30.5 L RDW 15.7 Plt Count 384 D MPV 9.1 L Immature Gran % (Auto) 1.1 H Neut % (Auto) 69.6 Lymph % (Auto) 16.2 L [place] % (Auto) 10.2 Eos % (Auto) 2.7 Baso % (Auto) 0.2 Lymph # (Auto) 2.1 [place] # (Auto) 1.3 H Eos # (Auto) 0.4 Baso # (Auto) 0.0 Abs Immat Gran (auto) 0.14 H Absolute Neuts (auto) 9.0 H Absolute Nucleated RBC 0.000 Nucleated RBC % (auto) 0.0 VBG pH VBG pCO2 VBG pO2 VBG HCO3 VBG O2 Saturation VBG Base Excess Anion Gap 11 L Estim Creat Clear Calc 55.5 Estimated GFR > 60 Random Glucose 133 H Lactic Acid Calcium 9.5 Magnesium 2.3 Total Bilirubin < 0.2 AST 19 ALT 51 H Alkaline Phosphatase 78 B-Natriuretic Peptide 14 Total Protein 6.7 Albumin 4.1 Urine Color Urine Appearance Urine pH Ur Specific [place] Urine Protein Urine Glucose (UA) Urine Ketones Urine Blood Urine Nitrite Ur Leukocyte Esterase Ethyl Alcohol COVID-19 ([facility]AN) COVID-19 [employer] Com 09/03/21 09/03/21 09/03/21 19:09 19:09 19:23 MCV MCH MCHC RDW Plt Count MPV Immature Gran % (Auto) Neut % (Auto) Lymph % (Auto) [place] % (Auto) Eos % (Auto) Baso % (Auto) Lymph # (Auto) [place] # (Auto) Eos # (Auto) Baso # (Auto) Abs Immat Gran (auto) Absolute Neuts (auto) Absolute Nucleated RBC Nucleated RBC % (auto) VBG pH 7.35 VBG pCO2 86 VBG pO2 70 VBG HCO3 48 H VBG O2 Saturation 92.0 VBG Base Excess 18.1 Anion Gap Estim Creat Clear Calc Estimated GFR Random Glucose Lactic Acid 0.8 Calcium Magnesium Total Bilirubin AST ALT Alkaline Phosphatase B-Natriuretic Peptide Total Protein Albumin Urine Color Urine Appearance Urine pH Ur Specific [place] Urine Protein Urine Glucose (UA) Urine Ketones Urine Blood Urine Nitrite Ur Leukocyte Esterase Ethyl Alcohol < 10 COVID-19 (SEAN) COVID-19 Clin Com 09/04/21 09/04/21 09/04/21 05:30 05:59 07:08 MCV 96.5 MCH 29.2 MCHC 30.3 L RDW 15.9 Plt Count 320 MPV 9.0 L Immature Gran % (Auto) 0.8 H Neut % (Auto) 66.8 Lymph % (Auto) 14.9 L [place] % (Auto) 14.5 H Eos % (Auto) 2.9 Baso % (Auto) 0.1 Lymph # (Auto) 1.3 [place] # (Auto) 1.3 H Eos # (Auto) 0.3 Baso # (Auto) 0.0 Abs Immat Gran (auto) 0.07 H Absolute Neuts (auto) 5.7 Absolute Nucleated RBC 0.000 Nucleated RBC % (auto) 0.0 VBG pH VBG pCO2 VBG pO2 VBG HCO3 VBG O2 Saturation VBG Base Excess Anion Gap Estim Creat Clear Calc Estimated GFR Random Glucose Lactic Acid Calcium Magnesium Total Bilirubin AST ALT Alkaline Phosphatase B-Natriuretic Peptide Total Protein Albumin Urine Color YELLOW Urine Appearance HAZY Urine pH 5.5 Ur Specific [place] >= 1.030 H Urine Protein NEG Urine Glucose (UA) NEG Urine Ketones NEG Urine Blood NEG Urine Nitrite NEG Ur Leukocyte Esterase NEG Ethyl Alcohol COVID-19 (SEAN) Positive A COVID-19 Clin Com See Note 09/04/21 07:08 MCV MCH MCHC RDW Plt Count MPV Immature Gran % (Auto) Neut % (Auto) Lymph % (Auto) [place] % (Auto) Eos % (Auto) Baso % (Auto) Lymph # (Auto) [place] # (Auto) Eos # (Auto) Baso # (Auto) Abs Immat Gran (auto) Absolute Neuts (auto) Absolute Nucleated RBC Nucleated RBC % (auto) VBG pH VBG pCO2 VBG pO2 VBG HCO3 VBG O2 Saturation VBG Base Excess Anion Gap 11 L Estim Creat Clear Calc 70.7 Estimated GFR > 60 Random Glucose 102 Lactic Acid Calcium 9.0 Magnesium Total Bilirubin AST ALT Alkaline Phosphatase B-Natriuretic Peptide Total Protein Albumin Urine Color Urine Appearance Urine pH Ur Specific [place] Urine Protein Urine Glucose (UA) Urine Ketones Urine Blood Urine Nitrite Ur Leukocyte Esterase Ethyl Alcohol COVID-19 (SEAN) COVID-19 Clin Com Assessment and Plan (1) COPD exacerbation: Status: Acute (2) COVID-19: Status: Acute Plan 66-year-old female a past medical history of COPD and recently diagnosed COVID- 19 presents to the hospital with worsening respiratory status # acute COPD exacerbation - secondary to COVID 19 infection - has no hypoxia, but significant tachypnea, cough, sputum production - will treat with dexamethasone IV, DuoNeb p.r.n. as well as schedule monitor respiratory status # acute on chronic pulmonary disease with hypoxia - currently on 2 L of baseline oxygen satting in the low 90s - no evidence of pneumonia - likely secondary to COPD exacerbation in the setting of COVID-19 infection - continue O2 supplement - DuoNeb, dexamethasone # COVID-19 infection - no evidence of pneumonia - dexamethasone daily - follow respiratory status # fall:There is large subcutaneous cephalohematoma on the left side, adjacent to the left parieto-occipital region, new since previous study No acute intracranial process. New cephalohematoma over the left occipitoparietal region No acute fracture or malalignment of cervical spine. Mild degenerative changes is straightening of cervical lordosis possibly due to muscle spasm Pt eval DVT prophylaxis:? Lovenox inpatient needs : acute on chronic pulmonary disease with hypoxia,copd excerebation-need iv steriods and nebs ,oxygen Quality Stroke Does the patient have a stroke diagnosis?: No VTE Prior VTE?: No VTE Risk Level:: Medical - moderate - high VTE Device Contraindication: Treatment Not Indicated VTE Drug Contraindication: N/A - Med Ordered
--- NOTE | 2021-09-04 16:21 | PC.NURSE ---
Pt found on the ground at 1030, VS as charted, C collar placed, made aware, Ct scan ordered. Pt states she was going to try to get to the commode. Call campos within reach.
[2021-09-04] MEDS: 0.9 % Sodium Chloride Flush 3 ML SYRINGE IVFLUSH (20:14)
[2021-09-04] MEDS: Acetaminophen 325 MG TABLET 650 MG PO (22:33)
[2021-09-05] VITALS (10 sets, daily range): BP systolic 117–154; BP diastolic 54–78; PULSE 96–112; RESP 16–20; TEMP 36.3–36.7; O2SAT 91–97
[2021-09-05] MEDS: Albuterol/Iprat 2.5/0.5MG 3 ML AMPUL.NEB INHALE ×5 (00:54→19:54)
[2021-09-05] MEDS: Butalb/Acetamin/Caff 50/325/40 TABLET 2 TAB PO ×2 (03:29→16:47)
[2021-09-05] MEDS: dilTIAZem HCL CD 180 MG CAP.ER.24H 360 MG PO (08:37)
[2021-09-05] MEDS: 0.9 % Sodium Chloride Flush 3 ML SYRINGE IVFLUSH ×2 (08:37→16:57)
[2021-09-05] MEDS: LORazepam 1 MG TABLET 2 MG PO ×3 (08:41→23:12)
[2021-09-05] MEDS: Acetaminophen 325 MG TABLET 650 MG PO (08:43)
[2021-09-05 08:44] LABS: Anion Gap 13 (12-20); Blood Urea Nitrogen 9 mg/dL (9-16); Calcium 9.2 mg/dL (8.4-10.2); Carbon Dioxide 39 mmol/L (22-29); Chloride 93 mmol/L (96-108); Creatinine Clr Calc Pharmacy 82.8; Estimated Glomerular Filt Rate > 60; Glucose Random 87 mg/dL (60-115); Potassium 3.7 mmol/L (3.3-5.1); Sodium 141 mmol/L (135-145)
[2021-09-05] MEDS: dexAMETHasone sod phosphate 4 MG/ML VIAL 6 MG IVPUSH (08:46)
--- NOTE | 2021-09-05 10:52 | P.PNIM_ITS ---
Subjective Subjective Date of Service: 09/05/21 Interval History: sob , fall Review of Systems still feels sob and talking with broken sentences denies any nausea or vomiting seems slightly improving , feel soar in scalp area Physical Exam Vital Signs: Vital Signs: Last Vital Signs Temp 97.6 F 09/05/21 07:46 Pulse 96 09/05/21 07:46 Resp 18 09/05/21 07:46 BP 117/57 L 09/05/21 07:46 Pulse Ox 97 09/05/21 07:46 O2 Del Method 09/05/21 07:46 O2 Flow Rate 3 09/05/21 07:46 Oxygen Flow Rate 5 09/03/21 17:31 BMI result Body Mass Index 28.8 Appearance: Alert.? Oriented X3.? still sob cvs: rrr(tachycardic), [id number] . res: air entry seems diminshed , b/l wheezing abd: no rebound or guarding ,nt, bs present. ext pulses present , no cyanosis . neuro: axo3 , nonfocal. Objective Data Active Medications Acetaminophen (Acetaminophen 325 Mg Tablet) 650 mg PO Q6H PRN PRN Reason: Pain, Mild (Pain Scale 1-3) Last Admin: 09/05/21 08:43 Dose: 650 mg Documented By: CTORRMira Acetaminophen/Butalbital/Caffeine (Butalb/Acetamin/Caff 50/325/40 Tablet) 2 tab PO Q12H PRN PRN Reason: Shortness of Breath/Wheezing Last Admin: 09/05/21 03:29 Dose: 2 tab Documented By: MINH Albuterol/Ipratropium (Albuterol/Iprat 2.5/0.5mg 3 Ml Ampul.Neb) 3 ml INHALE RQ4H PRN PRN Reason: Shortness of Breath/Wheezing Last Admin: 09/05/21 00:54 Dose: 3 ml Documented By: LINDA Albuterol/Ipratropium (Albuterol/Iprat 2.5/0.5mg 3 Ml Ampul.Neb) 3 ml INHALE RQ4H WHILE AWAKE NARCISA Last Admin: 09/05/21 07:24 Dose: 3 ml Documented By: FLORENCIO Benzonatate (Benzonatate 100 Mg Capsule) 100 mg PO TID PRN PRN Reason: Cough Last Admin: 09/03/21 23:58 Dose: 100 mg Documented By: SANDRA Dexamethasone Sodium Phosphate (Dexamethasone Sod Phosphate 4 Mg/Ml Vial) 6 mg IVPUSH DAILY [facility] Last Admin: 09/05/21 08:46 Dose: 6 mg Documented By: EILEEN Diltiazem HCl (Diltiazem Hcl Cd 180 Mg Cap.Er.24h) 360 mg PO DAILY [facility]; Protocol Last Admin: 09/05/21 08:37 Dose: 360 mg Documented By: EILEEN Docusate Sodium (Docusate Sodium 100 Mg Capsule) 100 mg PO DAILY PRN PRN Reason: Constipation Lorazepam (Lorazepam 1 Mg Tablet) 2 mg PO Q6H PRN PRN Reason: anxiety Last Admin: 09/05/21 08:41 Dose: 2 mg Documented By: EILEEN Ondansetron HCl (Ondansetron Hcl 4 Mg/2 Ml Vial) 4 mg IVPUSH Q8H PRN PRN Reason: Nausea and Vomiting Pharmacy Consult (Consult Rx Perform Med Rec) 1 each MISCELLANE ONCE PRN PRN Reason: Consult order Pharmacy Consult (Consult Rx Perform Med Rec) 1 each MISCELLANE ONCE PRN PRN Reason: Consult order Sodium Chloride (0.9 % Sodium Chloride Flush 3 Ml Syringe) 3 ml IVFLUSH QSHIFT [facility] Last Admin: 09/05/21 08:37 Dose: 3 ml Documented By: EILEEN Tiotropium [place] (Tiotropium [place] 18 Mcg Cap.W.Dev) 1 puff INHALE RDAILY [facility] Last Admin: 09/05/21 07:24 Dose: Not Given Documented By: FLORENCIO Non-Admin Reason: Med Not Available Labs CBC & Chem 7: 09/04/21 07:08 09/05/21 07:51 Labs: Laboratory Results - last 24 hr 09/05/21 07:51 Anion Gap 13 Estim Creat Clear Calc 82.8 Estimated GFR > 60 Random Glucose 87 Calcium 9.2 Magnesium 2.0 Microbiology Microbiology Results: Microbiology 09/03/21 19:09 Blood Culture - Preliminary Blood - Venous No growth after 24 hours. 09/03/21 17:22 Blood Culture - Preliminary Blood - Venous No growth after 24 hours. Assessment and Plan (1) COPD exacerbation: Status: Acute (2) COVID-19: Status: Acute Plan 66-year-old female a past medical history of COPD and recently diagnosed COVID- 19 presents to the hospital with worsening respiratory status # acute COPD exacerbation - secondary to COVID 19 infection - has no hypoxia, but significant tachypnea, cough, sputum production - will treat with dexamethasone IV, DuoNeb p.r.n. as well as schedule ? monitor respiratory status # acute on chronic pulmonary disease with hypoxia - currently on 2 L of baseline oxygen satting in the low 90s - no evidence of pneumonia - likely secondary to COPD exacerbation in the setting of COVID-19 infection - continue O2 supplement - DuoNeb, dexamethasone # COVID-19 infection - no evidence of pneumonia - dexamethasone daily - follow respiratory status # fall:There is large subcutaneous cephalohematoma on the left side, adjacent to the left parieto-occipital region, new since previous study No acute intracranial process. New cephalohematoma over the left occipitoparietal region No acute fracture or malalignment of cervical spine. Mild degenerative changes is straightening of cervical lordosis possibly due to muscle spasm Pt eval DVT prophylaxis:? Lovenox inpatient needs : acute on chronic pulmonary disease with hypoxia,copd excerebation-need iv steriods and nebs ,oxygen Quality Stroke Does the patient have a stroke diagnosis?: No VTE Prior VTE?: No VTE Risk Level:: Medical - moderate - high VTE Device Contraindication: Treatment Not Indicated VTE Drug Contraindication: N/A - Med Ordered
--- NOTE | 2021-09-05 16:15 | MHC.CM.PN ---
PTS IMM WAS DELIVERED VIA T/C [phone]. ORIGINAL GIVEN TO PTS NURSE WHO AGREED TO LEAVE IT BEDSIDE DISCUSSED WITH PT DCP STILL TBD PENDING PT EVAL HOME WITH SERVICES VS STR PT IS NOT VACCINATED AND IS COVID POSITIVE. SHE WILL REQUIRE BLS TRANSPORT REGARDLESS OF DISPISITION
--- NOTE | 2021-09-05 16:17 | MHC.CM.PN ---
PTS IMM WAS DELIVERED VIA T/C [phone]. ORIGINAL GIVEN TO PTS NURSE WHO AGREED TO LEAVE IT BEDSIDE DISCUSSED WITH PT DCP STILL TBD PENDING PT EVAL HOME WITH SERVICES VS STR PT IS NOT VACCINATED AND IS COVID POSITIVE. SHE WILL REQUIRE BLS TRANSPORT REGARDLESS OF DISPOSITION
[2021-09-06] VITALS (7 sets, daily range): BP systolic 140–171; BP diastolic 64–80; PULSE 91–107; RESP 16–18; TEMP 36.2–36.7; O2SAT 92–100
[2021-09-06] MEDS: LORazepam 1 MG TABLET 2 MG PO ×2 (05:12→13:58)
[2021-09-06] MEDS: Albuterol/Iprat 2.5/0.5MG 3 ML AMPUL.NEB INHALE ×3 (05:41→12:16)
[2021-09-06] MEDS: dexAMETHasone sod phosphate 4 MG/ML VIAL 6 MG IVPUSH (08:18)
[2021-09-06] MEDS: dilTIAZem HCL CD 180 MG CAP.ER.24H 360 MG PO (08:18)
[2021-09-06] MEDS: 0.9 % Sodium Chloride Flush 3 ML SYRINGE IVFLUSH ×2 (08:19)
--- NOTE | 2021-09-06 08:38 | P.CDIC_ITS ---
CDI Concurrent Query Documentation Clarification: PHYSICIAN'S DOCUMENTATION REQUEST Date of Query: 09/06/21 0839 Patient Name: Tiffanie Ngo Admit Date: 09/03/21 Dear Doctor, A review of the medical record indicates additional documentation may be needed. Please review below and update the documentation accordingly. Clinical Indicators: The following diagnoses or signs and symptoms were noted in the patient record: Risk Factors/Clinical Indicators/Treatments Per nursing flow sheet 09/03/21: chronic O2 at 2L at home, 5L on 09/03/21 for dyspnea Per MD progress note 09/03/21: acute on chronic pulmonary disease with hypoxia - currently on 2 L of baseline oxygen sa tting in the low 90s - no evidence of pneumonia - likely secondary to COPD exacerbation in the setting of COVID-19 infection - continue O2 supplement - DuoNeb, dexamethasone Based on the above, could you clarify in the Progress Notes the appropriate diagnosis, if significant, that supports the above abnormalities and additional evaluation, monitoring, and/or treatment rendered: * Chronic Respiratory Failure with Hypoxia * Acute on Chronic Respiratory Failure with Hypoxia * No Hypoxia * Other (please specify) * Unable to determine Use of terms such as suspected, likely, concern for, or probable (associated with a specific diagnosis that is being evaluated, monitored, or treated as if it exists) are acceptable and can be coded in the inpatient setting, when documented at the time of discharge. Thank you, Jessika Peguero RN Extension: [phone] Please use your independent medical judgment in providing your response. THIS QUERY IS PART OF THE PERMANENT MEDICAL RECORD Provider Response: Other Other Diagnosis: ch respiratory failure
--- NOTE | 2021-09-06 11:15 | MHC.CM.PN ---
Addendum entered by Merry Toussaint 09/06/21 15:06: PT WILL DC HOME TODAY WITH [facility] TO START ON MONDAY BLS TRANSPORT REQUESTED FOR 1600 HOURS Original Note: PER MD ROUNDS, PT EXPECTED TO BE DISCHARGED TODAY. PER NOTES FROM PREVIOUS ADMISSION, PT WAS ACTIVE WITH [facility] RECENTLY REFERRAL SENT TO [facility] TO DETERMINE IF THEY ARE STILL PROVIDING SERVICES PT WILL NEED A VNA AT DC PER RECORDS, PT WILL ALSO NEED BLS TRANSPORT DUE TO O2 NEEDS AND INABILITY TO WALK UP THE MULTIPLE FLIGHTS OF STAIRS TO HER HOTEL ROOM
--- NOTE | 2021-09-06 13:40 | P.CNPS_ITS ---
History of Present Illness Date of Service: 09/06/2021 Chief Complaint: COPD exacerbation, covid Reason for Consult: Severe anxiety, fall Requesting physician: Fang Joshua Sources of Information: patient interviewed and chart reviewed HPI Narrative: Patient is a 66-year-old female, PMH of anxiety, asthma, bronchitis, COPD, hypertension, admitted with COPD exacerbation, also found to have COVID. Patient had fallen while here. Patient has longstanding history of Ativan daily, receiving prescription for 2 mg Ativan, 56 tablets, every 14 days, from [facility]. Psychiatry asked to meet with patient regarding Ativan prescription, as well as recent fall, to assess current dosing. Patient has no history of inpatient level of care psychiatrically, no history of PHP. Prescription monitoring program search shows consistent prescriptions for lorazepam, every 14 days. Patient was sitting up in bed, pleasant upon approach. She was engageable, fully alert and oriented x4. She remembered me from her previous stay inpatient in July of this year. She states that she did fall could, but that it was related to feeling weak / dizzy from COVID. She states that now she is feeling better, and feels ready to go home. She resides with her . We discussed her current lorazepam dosing, as a possible culprit with her fall. She explained that she has a longstanding history, 35 years of taking 2 mg lorazepam 4 times a day p.r.n. for anxiety. She states that she has had a traumatic past, including losing to children as babies. She states that she does not believe her weakness or falling was in any way related to her lorazepam. She states that since admit, she is now feeling stronger, and states that ?the aches and pains are now gone ?. She denies any safety concerns, and states she is looking forward to going home to be with her . Past Psychiatric History: hx ECTOR, receiving lorazepam for many years. Remote hx of psychiatrist for anxiety, over 30 years ago . No IPLOC Medical Evaluation Reviewed: Yes Personal & Social History: Lives with [facility] Medical History (Updated 09/06/21 @ 13:59 by Brittany Maddox) Anxiety Asthma Bronchitis Chronic respiratory failure COPD (chronic obstructive pulmonary disease) Diverticulitis Dizziness Emphysema lung Hypertension Otitis media Vertigo Surgical History History of breast surgery History of laparotomy Diagnostics Vital Signs (24Hr): Vital Signs - 24 hr 09/05/21 14:52 09/05/21 15:23 09/05/21 19:02 Temperature 97.7 F 98.0 F Pulse Rate 102 H 106 H 112 H Respiratory Rate 18 18 Blood Pressure 154/73 H 123/69 Pulse Oximetry 92 95 Oxygen Delivery Method Nasal Cannula Nasal Cannula Oxygen Flow Rate 2 3 09/05/21 19:55 09/05/21 23:01 09/06/21 04:00 Temperature 98.0 F 98.1 F Pulse Rate 112 H 104 H 91 Respiratory Rate 18 18 16 Blood Pressure 146/78 H 162/72 H Pulse Oximetry 96 95 Oxygen Delivery Method Nasal Cannula Nasal Cannula Oxygen Flow Rate 3 3 09/06/21 05:41 09/06/21 08:10 09/06/21 08:00 Temperature 97.1 F Pulse Rate 91 94 96 Respiratory Rate 16 16 18 Blood Pressure 153/64 H Pulse Oximetry 96 Oxygen Delivery Method Nasal Cannula Oxygen Flow Rate 4 09/06/21 11:41 09/06/21 12:23 09/06/21 12:54 Temperature 97.9 F Pulse Rate 107 H 94 Respiratory Rate 18 17 Blood Pressure 171/75 H 140/80 H Pulse Oximetry 96 Oxygen Delivery Method Nasal Cannula Oxygen Flow Rate 4 BMI result Body Mass Index 28.8 Labs Results: 09/04/21 07:08 09/05/21 07:51 Labs: Laboratory Results - last 48 hr 09/05/21 07:51 Sodium 141 Potassium 3.7 Chloride 93 L Carbon Dioxide 39 H Anion Gap 13 BUN 9 Creatinine 0.53 Estim Creat Clear Calc 82.8 Estimated GFR > 60 Random Glucose 87 Calcium 9.2 Magnesium 2.0 Imaging Radiology Impressions: ITS Impressions Chest X-Ray 09/03/21 18:12 IMPRESSION: No acute process identified. Head CT 09/03/21 19:59 IMPRESSION: No acute intracranial pathology. Head CT 09/04/21 11:29 IMPRESSION: No acute intracranial process. New cephalohematoma over the left occipitoparietal region No acute fracture or malalignment of cervical spine. Mild degenerative changes is straightening of cervical lordosis possibly due to muscle spasm Cervical Spine CT 09/04/21 11:30 IMPRESSION: No acute intracranial process. New cephalohematoma over the left occipitoparietal region No acute fracture or malalignment of cervical spine. Mild degenerative changes is straightening of cervical lordosis possibly due to muscle spasm Mental Status Exam Mental Status Exam Narrative: Unkempt, sitting up at bedside. Eye contact within normal limits. Alert and oriented x4. No involuntary movements, no tics or tremors. Motor activity calm. Speech was fluent, unimpaired. Mood and affect appropriate. Thought process and associations were linear, goal directed. Thought content normal, future oriented. No evidence of any type of delusional thoughts or hallucinations reported or noted. Denies any thought of harm to self or others. Appears to be reliable historian. Judgment and insight appear intact at this time. Medications Medications Current Medications Acetaminophen (Acetaminophen 325 Mg Tablet) 650 mg PO Q6H PRN PRN Reason: Pain, Mild (Pain Scale 1-3) Last Admin: 09/05/21 08:43 Dose: 650 mg Acetaminophen/Butalbital/Caffeine (Butalb/Acetamin/Caff 50/325/40 Tablet) 2 tab PO Q12H PRN PRN Reason: Shortness of Breath/Wheezing Last Admin: 09/05/21 16:47 Dose: 2 tab Albuterol/Ipratropium (Albuterol/Iprat 2.5/0.5mg 3 Ml Ampul.Neb) 3 ml INHALE RQ4H PRN PRN Reason: Shortness of Breath/Wheezing Last Admin: 09/06/21 05:41 Dose: 3 ml Albuterol/Ipratropium (Albuterol/Iprat 2.5/0.5mg 3 Ml Ampul.Neb) 3 ml INHALE RQ4H WHILE AWAKE [facility] Last Admin: 09/06/21 12:16 Dose: 3 ml Benzonatate (Benzonatate 100 Mg Capsule) 100 mg PO TID PRN PRN Reason: Cough Last Admin: 09/03/21 23:58 Dose: 100 mg Dexamethasone Sodium Phosphate (Dexamethasone Sod Phosphate 4 Mg/Ml Vial) 6 mg IVPUSH DAILY [facility] Last Admin: 09/06/21 08:18 Dose: 6 mg Diltiazem HCl (Diltiazem Hcl Cd 180 Mg Cap.Er.24h) 360 mg PO DAILY [facility]; Protocol Last Admin: 09/06/21 08:18 Dose: 360 mg Docusate Sodium (Docusate Sodium 100 Mg Capsule) 100 mg PO DAILY PRN PRN Reason: Constipation Lorazepam (Lorazepam 1 Mg Tablet) 2 mg PO Q6H PRN PRN Reason: anxiety Last Admin: 09/06/21 05:12 Dose: 2 mg Ondansetron HCl (Ondansetron Hcl 4 Mg/2 Ml Vial) 4 mg IVPUSH Q8H PRN PRN Reason: Nausea and Vomiting Pharmacy Consult (Consult Rx Perform Med Rec) 1 each MISCELLANE ONCE PRN PRN Reason: Consult order Pharmacy Consult (Consult Rx Perform Med Rec) 1 each MISCELLANE ONCE PRN PRN Reason: Consult order Sodium Chloride (0.9 % Sodium Chloride Flush 3 Ml Syringe) 3 ml IVFLUSH QSHIFT [facility] Last Admin: 09/06/21 08:19 Dose: 3 ml Tiotropium [place] (Tiotropium [place] 18 Mcg Cap.W.Dev) 1 puff INHALE RDAILY [facility] Last Admin: 09/06/21 08:02 Dose: 1 puff Allergies Allergies Allergy/AdvReac Type Severity Reaction Status Date / Time morphine [MORPHINE] Allergy Severe HIVES, Verified 10/04/20 22:39 high temp, nausea tetracycline [TETRACYCLINE] Allergy Severe VOMITING Verified 10/04/20 22:39 tramadol [TRAMADOL] Allergy Severe SWEATING, Verified 10/04/20 22:39 VOMITING, vomiting amoxicillin [From AUGMENTIN] AdvReac Severe CONSTIPATIO Verified 10/04/20 22:39 N clavulanic acid AdvReac Severe CONSTIPATIO Verified 10/04/20 22:39 [From AUGMENTIN] N codeine [CODEINE] AdvReac Severe NAUSEA Verified 10/04/20 22:39 levofloxacin [From LEVAQUIN] AdvReac Severe CONSTIPATIO Verified 10/04/20 22:39 N Sulfa(Sulfonamide Allergy Unknown Unknown Uncoded 10/04/20 22:39 Antibiotics) Assessment & Plan Assessment & Plan (1) Anxiety: Status: Acute Code(s): F41.9 - Anxiety disorder, unspecified Assessment and Plan: Patient reports longstanding history of lorazepam prescriptions, dating back 35 years. Receives prescription every 14 days from [facility]. Recently fell, states that this was due to feeling weak and dizzy from COVID, not from her current lorazepam dosing. She states that she is feeling better, stronger, and plans to be discharged to home today. Lives with her . Plan Patient did not appear incapacitated in any way, was not lethargic, unstable physically, nor did she appear dizzy or weak. Recommendation is to continue with current lorazepam dosing, as she can discuss with outpatient providers going forward if begins to notice symptoms of weakness, dizziness, or has more frequent falls. I have shared this with provider Dr. Fang Joshua. Thank you for this consultation. I spent __25____ minutes with the patient and/or on the patient floor today, greater than?50% of which was spent counseling/coordinating care. Patient educated on: diagnosis, medication risk/benefits and therapeutic strategies Informed Consent: understands
--- NOTE | 2021-09-06 13:50 | W.MHC.F2F ---
Service Date Service Date: 09/06/21 Encounter Date of encounter: 09/06/21 Encounter: COPD exacerbation, acute on chronic respiratory failure. COVID infection. Cephalhematoma. Reasons for Services Signs and symptoms assessed: shortness of breath Reason for penitentiary: medication management, medication treatment and teach disease management Reason for physical therapy: home safety and mobility, therapeutic exercises, restore joint function, gait/transfer training, assess need for DME, ADL training, energy conservation and other MD Overseeing Care: Mickey Name Homebound: Leaving the home is medically contraindicated at this time without the asist of a device and/or another person due th the listed conditions above and below. Reason homebound: other Homebound supporting statement: patient admitted for COPD exacerbation, COVID infection,cephalohematoma on the left side,, generalized weak post hospitalization -need help with going to appointments. Certification: Based on the above findings, I certify that this patient is confined to the home and needs intermittent penitentiary care, physical therapy and/or speech therapy, or continues to need occupational therapy. The patient is under my care, and I have initiated the establishment of the plan of care. The patient will be followed by a physician who will periodically review the plan of care.
--- NOTE | 2021-09-06 13:55 | P.DS_ITS ---
DS: Providers Provider Date of Service: 09/06/21 Date of admission: 09/03/21 23:06 Primary care physician: Unknown Physician Consults: 09/04/21 13:36 Consult for Sitter Routine Reason for consultation: fall Has provider been notified: No 09/06/21 12:42 Consult to Psychiatry Routine Consulting Provider: Psych Covering Reason for consultation: severe anxiety and fall Has provider been notified: No DS: Diagnosis Discharge Diagnosis (1) COPD exacerbation: Status: Acute (2) COVID-19: Status: Acute DS: Summary Hospital Course Hospital Course: 66-year-old female with past medical history of COPD on baseline 2 L of oxygen, anxiety, HTN who presents to the hospital with complaints of worsening respiratory symptoms.? Patient reports that for about 5 days she has had shortness of breath, cough, sputum production, she went to the hospital and was tested positive for COVID-19 pneumonia on 08/31 she was admitted for 1 day, was treated for COPD exacerbation and sent home.? Patient reports that she continued to have worsening symptoms, non resolving, and therefore decided to come to the hospital.? She reports wheezing, dyspnea on minimal exertion, no fever some chills, no chest pain, no abdominal pain nausea or vomiting, no diarrhea constipation, no urinary symptoms and no lower extremity edema.? On arrival to the ED patient's vital significant for temperature of 99.8 heart rate of 110, respiratory rate of 26 Labs are significant for WBC count of 12.9, hemoglobin of 11.4, hematocrit 37.4, pH of 7.35, CO2 of 48, BUN of 28, COVID-19 positive. Hospital course: patient was admitted for Acute on chronic respiratory failure secondary to copd exceerbation and recent covid infection-started on nebs steriods, Oxygen- seems to be improved significantly, cough seems to be improved. patient had fall- had fall-has left side scalp swelling and hematoma which is improving. patient was seen by PT -recommended rehab but patient patient declin ed, instead wants to go home , going home with vna and PT. seen by psych- currently no adjustment for psych medications recommended ,follow-up outpatient with pcp. Assessment and plan coordination time spent 50 minutes. Significant findings: As above. Procedures performed: None. Treatment and response: As above. Complications: None. Time Spent with Patient Time attestation: Total time spent providing and/or coordinating discharge services: Discharge coordination time: Greater than 30 minutes Quality: Safe Use of Opioids Does Pt have an Active Cancer Diagnosis on the Problem List?: No Quality: Stroke Does the patient have a stroke diagnosis?: No Physical Exam Vital Signs: Vital Signs: Last Vital Signs Temp 97.9 F 09/06/21 11:41 Pulse 94 09/06/21 12:23 Resp 17 09/06/21 12:23 BP 140/80 H 09/06/21 12:54 Pulse Ox 96 09/06/21 11:41 O2 Del Method 09/06/21 11:41 O2 Flow Rate 4 09/06/21 11:41 Oxygen Flow Rate 5 09/03/21 17:31 BMI result Body Mass Index 28.8 Appearance: Alert.? Oriented X3.? still sob cvs: rrr(tachycardic), [id number] . res: air entry seems diminshed , b/l wheezing abd: no rebound or guarding ,nt, bs present. ext pulses present , no cyanosis . neuro: axo3 , nonfocal. DS: Data Data Completed and Pending Labs on day of discharge: Preliminary micro results at discharge 09/03/21 17:22 Blood Culture - Preliminary Blood - Venous No growth after 48 hours. 09/03/21 19:09 Blood Culture - Preliminary Blood - Venous No growth after 48 hours. Additional Comments Additional comments: Laboratory Results - last 24 hr ? 09/05/21 ? 07:51 Anion Gap ?13 Estim Creat Clear Calc ?82.8 Estimated GFR ?> 60 Random Glucose ?87 Calcium ?9.2 Magnesium ?2.0 CT/CT head/brain wo con IMPRESSION: No acute intracranial process. New cephalohematoma over the left occipitoparietal region No acute fracture or malalignment of cervical spine. Mild degenerative changes is straightening of cervical lordosis possibly due to muscle spasm XR/XR chest 1V IMPRESSION: No acute process identified Discharge Plan Discharge Patient Disposition: Home Health Service Discharge Diagnosis: copd excerebation,covid infection Referrals: Charles ROSEN [Outside] - 1 Week Physician,Unknown J [Primary Care Provider] - 1 Week Discharge Medications: New benzonatate 100 mg Capsule 100 mg PO TID PRN (Reason: Cough) Qty: 10 0RF dexamethasone 6 mg tablet 6 mg PO DAILY Qty: 9 0RF Continued albuterol sulfate 2.5 mg /3 mL (0.083 %) solution for nebulization 1 vial inhalation 6XD editskkeku-pajsfzhiniiny-zhvv 50-325-40 mg tablet 1 - 2 tab PO Q12H PRN (Reason: Headache) diltiazem HCl 360 mg capsule,extended release 24 hr 1 cap PO DAILY lorazepam 2 mg tablet 1 tab PO Q6H PRN (Reason: anxiety) Spiriva with HandiHaler 18 mcg capsule, w/inhalation device 1 cap inhalation DAILY ipratropium bromide 0.02 % solution 2.5 ml inhalation Q6H PRN (Reason: wheezing) Discharge Orders: Discharge Order (Routine); Ordered 09/06/21 Ordered By: Fang Joshua Diet: Advance to usual diet Activity on Discharge: As tolerated Stand Alone Forms: Patient Portal Discharge page Care Plan Goals: patient was admitted for copd exceerbation and recent covid infection-started on nebs steriods, Oxygen- seems to be improved significantly, cough seems to be improved. patient had fall- had fall-has left side scalp swelling and hematoma which is improving. patient was seen by PT -recommended rehab but patient patient declined, instead wants to go home , will try to arrange vna and PT. Health Concerns: as above. Plan of Treatment: As above. Assessment: As above.
== END 2021-09-06 16:12 | disposition home health service (06) | DRG 177 ==
LOC: HO.ED 22:59 → HO.EDOVER 23:14 → HO.IMC 09-04 14:05
PROVIDERS: Physician Assistant Medical; Admitting Provider Internal Medicine; Emergency Provider Emergency Medicine Emergency Medical Services; PCP Internal Medicine Geriatric Medicine; Visit Provider Internal Medicine
DX: U07.1 COVID-19 (principal); J96.21 Acute and chronic respiratory failure with hypoxia; F41.9 Anxiety disorder, unspecified; J43.9 Emphysema, unspecified; I10 Essential (primary) hypertension; S00.03XA Contusion of scalp, initial encounter; W18.30XA Fall on same level, unspecified, initial encounter; Z99.81 Dependence on supplemental oxygen; Z88.0 Allergy status to penicillin; Z88.1 Allergy status to other antibiotic agents; Z88.2 Allergy status to sulfonamides; Z88.5 Allergy status to narcotic agent; Z79.899 Other long term (current) drug therapy
CPT/HCPCS: 36415; 70450; 71045; 72125; 80048; 80053; 81003; 82077; 82803; 83605; 83735; 83880; 84484; 85025; 87040; 87205; 87635; 93005; 94640; 94664; 96360; 96361; 97162; 99285; J1100; J1650

== ENCOUNTER 2021-09-24 23:05 | Emergency (ER) | payer MEDICARE, SELFPAY ==
[2021-09-24 23:14] VITALS: BP 176/88; PULSE 97; RESP 16; TEMP 36.9; O2SAT 100; BMI 28.8
--- NOTE | 2021-09-24 23:33 | ED.DIZZY ---
HPI - Dizziness General Chief Complaint: Dizziness Stated Complaint: DIZZINESS/VERTIGO Time Seen by Provider: 09/24/21 23:33 History of Present Illness HPI Narrative: Patient with history of vertigo complaining of dizziness and nausea for last few days also patient has history of COPD on 4 L of oxygen home patient has history of same few months ago had CT scan of the head done 09/04/2021 negative no headache patient feels off balance dizziness gets worse turning the head to the right side patient does have a chronic otitis media on the left side with tympanic membrane perforation for many years Related Data Home Medications Medication Instructions Recorded Confirmed albuterol sulfate 2.5 mg/3 mL 1 vial inhalation 6XD 10/04/20 09/03/21 (0.083 %) solution for nebulization epzuwgmnza-lggokojemkzrk-podurzlr 1 - 2 tab PO Q12H PRN Headache 10/04/20 09/03/21 50 mg-325 mg-40 mg tablet diltiazem HCl 360 mg capsule,24 1 cap PO DAILY 07/08/21 09/03/21 hr,extended release lorazepam 2 mg tablet 1 tab PO Q6H PRN anxiety 07/08/21 09/03/21 tiotropium bromide 18 mcg capsule 1 cap inhalation DAILY 08/27/21 09/03/21 with inhalation device (Spiriva with HandiHaler) ipratropium bromide 0.02 % 2.5 ml inhalation Q6H PRN wheezing 09/03/21 09/03/21 solution for inhalation Previous Rx's Medication Instructions Recorded benzonatate 100 mg capsule 100 mg PO TID PRN Cough #10 caps 09/04/21 dexamethasone 6 mg tablet 6 mg PO DAILY #9 tabs 09/04/21 meclizine 25 mg tablet 25 mg PO TID PRN dizziness #20 tabs 09/25/21 fpsqvhux-gzckff-RI-thonzonm 3.3 4 drp otic (ear) left QID #10 mL 09/25/21 mg-3 mg-10 mg-0.5 mg/mL ear drops,susp (Cortisporin-TC) Allergies Allergy/AdvReac Type Severity Reaction Status Date / Time morphine [MORPHINE] Allergy Severe HIVES, Verified 10/04/20 22:39 high temp, nausea tetracycline [TETRACYCLINE] Allergy Severe VOMITING Verified 08/29/21 22:39 tramadol [TRAMADOL] Allergy Severe SWEATING, Verified 10/04/20 22:39 VOMITING, vomiting amoxicillin [From AUGMENTIN] AdvReac Severe CONSTIPATIO Verified 10/04/20 22:39 N clavulanic acid AdvReac Severe CONSTIPATIO Verified 10/04/20 22:39 [From AUGMENTIN] N codeine [CODEINE] AdvReac Severe NAUSEA Verified 10/04/20 22:39 levofloxacin [From LEVAQUIN] AdvReac Severe CONSTIPATIO Verified 10/04/20 22:39 N Sulfa(Sulfonamide Allergy Unknown Unknown Uncoded 10/04/20 22:39 Antibiotics) Review of Systems Review of Systems: Yes all other systems are reviewed and are negative PMFSH Past Medical History Medical History Anxiety Asthma Bronchitis Chronic respiratory failure COPD (chronic obstructive pulmonary disease) Diverticulitis Dizziness Emphysema lung Hypertension Otitis media Vertigo Surgical History History of breast surgery History of laparotomy Family History Family History Other No family history of coronary artery disease Social History Social History Household Members: Spouse Housing: Other Housing Other:: motel. Do you presently have visiting nurse or other home services: No Alcohol intake: current Alcohol intake frequency: 0-2 drinks per day Patient Tobacco Use Status: Never used Tobacco Advance Directives: No service: No Current occupational status: disabled Physical Exam Vital Signs: Vital Signs: Last Vital Signs Temp 98.4 F 09/24/21 23:14 Pulse 89 09/25/21 04:00 Resp 16 09/25/21 00:25 BP 113/63 09/25/21 04:00 Pulse Ox 100 09/25/21 04:00 O2 Del Method 09/25/21 04:00 O2 Flow Rate 4.5 09/25/21 04:00 BMI result Body Mass Index 28.8 Appearance: Alert. Oriented X3. No acute distress. Anxious Eyes: PERRLA, No Nystagmus ENT: Pharynx normal. Oral Mucosa moist left large tympanic membrane perforation with serous discharge Neck: Normal inspection. Neck supple. CVS: Normal heart rate and rhythm. Pulses normal. Respiratory: No respiratory distress. Equal air entry bilateral, prolonged expiration with rhonchi Abdomen: Soft and nontender. Bowel sounds are present, no mass palpable, no CVA tenderness Skin: Skin warm and dry. Normal skin color. Normal skin turgor. Extremities: No lower extremity edema. No calf tenderness Neuro: Oriented X 3. No motor deficit. No sensory deficit.No cerebellar signs , cranial nerves II-XII intact MDM - Dizziness Lab Data Result diagrams: 09/25/21 01:04 Labs: Lab Results 09/25/21 Range/Units 01:04 Sodium 141 (135-145) mmol/L Potassium 4.7 D (3.3-5.1) mmol/L Chloride 97 (96-108) mmol/L Carbon Dioxide 36 H (22-29) mmol/L Anion Gap 13 (12-20) BUN 15 D (9-16) mg/dL Creatinine 0.59 (0.5-1.4) mg/dL Estim Creat Clear Calc 74.4 Estimated GFR > 60 Random Glucose 145 H (60-115) mg/dL Calcium 9.3 (8.4-10.2) mg/dL Total Bilirubin 0.2 (0.0-1.0) mg/dL AST 15 (5-31) U/L ALT 20 (0-31) U/L Alkaline Phosphatase 88 (39-117) U/L Total Protein 6.8 (6.5-8.0) g/dL Albumin 3.9 (3.5-5.0) g/dL Discharge Plan Discharge Clinical Impression: Benign paroxysmal positional vertigo, Otitis media, chronic with perforation Patient Disposition: Home, Self-Care Instructions: Ruptured Eardrum (ED), Ear Infection (ED), Benign Paroxysmal Positional Vertigo (ED) Additional Instructions: Take medication as prescribed for dizziness and chronic Care infection and follow with PCP Prescriptions: New Cortisporin-TC 3.3-3-10-0.5 mg/mL drops,suspension 4 drp otic (ear) left QID Qty: 10 0RF meclizine 25 mg tablet 25 mg PO TID PRN (Reason: dizziness) Qty: 20 0RF No [facility] albuterol sulfate 2.5 mg /3 mL (0.083 %) solution for nebulization 1 vial inhalation 6XD amdmfuowov-hkrxabviutwzw-zpva 50-325-40 mg tablet 1 - 2 tab PO Q12H PRN (Reason: Headache) diltiazem HCl 360 mg capsule,extended release 24 hr 1 cap PO DAILY lorazepam 2 mg tablet 1 tab PO Q6H PRN (Reason: anxiety) Spiriva with HandiHaler 18 mcg capsule, w/inhalation device 1 cap inhalation DAILY ipratropium bromide 0.02 % solution 2.5 ml inhalation Q6H PRN (Reason: wheezing) benzonatate 100 mg Capsule 100 mg PO TID PRN (Reason: Cough) Qty: 10 0RF dexamethasone 6 mg tablet 6 mg PO DAILY Qty: 9 0RF
[2021-09-24] MEDS: Meclizine HCl 25 MG TABLET PO (23:58)
[2021-09-25] VITALS (7 sets, daily range): BP systolic 112–169; BP diastolic 61–77; PULSE 89–97; RESP 14–16; TEMP 36.6–36.8; O2SAT 99–100
[2021-09-25] MEDS: LORazepam 1 MG TABLET 2 MG PO ×2 (00:17→07:55)
[2021-09-25] MEDS: Albuterol/Iprat 2.5/0.5MG 3 ML AMPUL.NEB INHALE ×2 (00:25→08:13)
[2021-09-25 01:30] LABS: Alanine Aminotransferase 20 U/L (0-31); Albumin Level 3.9 g/dL (3.5-5.0); Alkaline Phosphatase 88 U/L (39-117); Anion Gap 13 (12-20); Aspartate Amino Transferase 15 U/L (5-31); Bilirubin Total 0.2 mg/dL (0.0-1.0); Blood Urea Nitrogen 15 mg/dL (9-16); Calcium 9.3 mg/dL (8.4-10.2); Carbon Dioxide 36 mmol/L (22-29); Chloride 97 mmol/L (96-108); Creatinine Clr Calc Pharmacy 74.4; Estimated Glomerular Filt Rate > 60; Glucose Random 145 mg/dL (60-115); Potassium 4.7 mmol/L (3.3-5.1); Sodium 141 mmol/L (135-145); Total Protein 6.8 g/dL (6.5-8.0)
--- NOTE | 2021-09-25 03:15 | PC.NURSE ---
This [place] called [facility] at [phone] for a bls transfer home per . EMS Booked for 0800AM RN and dairy manufacturing technologist aware.
--- NOTE | 2021-09-25 08:02 | PC.NURSE ---
pt is a/o x 3 no sob/pedro noted skin pink warm dry speaks in full sentences. lungs - diminished all lobes except rll lobe which has slight exp wheezing. pt aware of plan of care for ambulance ride pt home. pt c/o slight anxiety med x1 with ativan 2mg po.
--- NOTE | 2021-09-25 10:01 | PC.NURSE ---
Call out to [facility] for updated ETA @[phone] CASSIDY from [facility] expressed that there are only two trucks in the city and is trying to pass transport to other ambulance. CASSIDY will call back at 1030 for an update.
--- NOTE | 2021-09-25 10:41 | PC.NURSE ---
CASSIDY from [facility] called at 1040 and is unsuccessful on passing transport to another ambulance company. He will continue to call.
--- NOTE | 2021-09-25 10:44 | PC.NURSE ---
call out to [facility] @1043 regarding transport of patient, [facility] is unable to transport patient. call out to [facility] @[phone] regarding transport of patient, [facility] is unable to transport to patient.
--- NOTE | 2021-09-25 11:20 | PC.NURSE ---
Call placed to [facility] to see if they could take the pt home due to lack of transportation from [facility]. [facility] stated there is nothing available [facility]. Call was placed at [phone]
--- NOTE | 2021-09-25 11:29 | PC.NURSE ---
[facility] was contacted at [phone] per [facility] they [facility] no trucks available. Will call [facility] to see when transportation will be available
--- NOTE | 2021-09-25 11:59 | PC.NURSE ---
Call was placed to [facility] at [phone].[facility] stated they are still trying to pass off the call.[facility] was going to take it but they do not transfer to private residents. At the moment they only have 1 truck in the city and [facility] is helping then with 911 calls. They stated they will give me a call back with any updates. Will try [facility] again in another half an hour
--- NOTE | 2021-09-25 13:18 | PC.NURSE ---
[facility] is going to drop off the pt. States he will be there shortly.
--- NOTE | 2021-09-25 13:51 | PC.NURSE ---
[facility] arrived at 1350 ready to transport pt home
== END 2021-09-25 13:50 | disposition home or self-care (01) ==
PROVIDERS: Emergency Provider Internal Medicine; PCP Internal Medicine Geriatric Medicine
DX: H81.13 Benign paroxysmal vertigo, bilateral (principal); H66.013 Acute suppurative otitis media with spontaneous rupture of ear drum, bilateral; R11.0 Nausea; Z79.899 Other long term (current) drug therapy
CPT/HCPCS: 36415; 80053; 94640; 99284

== ENCOUNTER 2021-11-19 01:15 | Emergency (ER) | payer MEDICARE, SELFPAY ==
--- NOTE | ~2021-11-19 | XR_ITS ---
EXAMINATION: XR CHEST CLINICAL INFORMATION: Shortness of breath COMPARISON: 09/03/2021 TECHNIQUE: Frontal view of the chest was obtained. FINDINGS: Lung volumes are symmetric. There is a region of heterogeneous opacity in the mid to lower right lung, new from prior. No evidence of pneumothorax. Suggestion of small right pleural effusion. The cardiomediastinal contour is unremarkable. No acute osseous findings are seen. XR/XR chest 1V IMPRESSION: Region of airspace opacity in the mid to lower right lung, new from prior and suspicious for pneumonia. Radiographic followup after treatment/resolution of symptoms is recommended.
[2021-11-19 01:27] VITALS: BP 130/58; O2SAT 95
--- NOTE | 2021-11-19 01:37 | ECG_ITS ---
Test Reason : DIFF BREATHING Blood Pressure : / mmHG Vent. Rate : 085 BPM Atrial Rate : 085 BPM P-R Int : 154 ms QRS Dur : 078 ms QT Int : 370 ms P-R-T Axes : 059 029 065 degrees QTc Int : 440 ms Normal sinus rhythm Normal ECG When compared with ECG of 03-SEP-2021 20:42, Heart rate has decreased Referred By: Gilson Shelton Electronically Signed By:ANJUM HERNANDEZ MD
--- NOTE | 2021-11-19 01:41 | ED_ITS ---
HPI - SOB/Dyspnea General Chief Complaint: Dyspnea Stated Complaint: sob Time Seen by Provider: 11/19/21 01:26 Source: patient and EMS Limitations: no limitations History of Present Illness HPI Narrative: Patient history of severe COPD ex-smoker comes here for dizziness and shortness of breath started today. Patient admitted [facility] 3 weeks ago with COPD and pneumothorax had chest tube placed that time shortness of breath going on for last few days with dry cough pneumococcal phlegm no fever dizziness started today she feel everything moving around earlier today now getting little better. No fever no chills no nausea no vomiting no diarrhea patient is a 5 L nasal cannula oxygen Related Data Home Medications Medication Instructions Recorded Confirmed albuterol sulfate 2.5 mg/3 mL 1 vial inhalation 6XD 10/04/20 09/03/21 (0.083 %) solution for nebulization xlsribzyst-uhfeglzdobhbj-oerkxsbc 1 - 2 tab PO Q12H PRN Headache 10/04/2008/07 50 mg-325 mg-40 mg tablet diltiazem HCl 360 mg capsule,24 1 cap PO DAILY 07/08/21 09/03/21 hr,extended release lorazepam 2 mg tablet 1 tab PO Q6H PRN anxiety 07/08/21 09/03/21 tiotropium bromide 18 mcg capsule 1 cap inhalation DAILY 08/27/21 09/03/21 with inhalation device (Spiriva with HandiHaler) ipratropium bromide 0.02 % 2.5 ml inhalation Q6H PRN wheezing 09/25/21 solution for inhalation Previous Rx's Medication Instructions Recorded meclizine 25 mg tablet 25 mg PO TID PRN dizziness #20 tabs 09/25/21 gvwpphml-usbegk-GZ-thonzonm 3.3 4 drp otic (ear) left QID #10 mL 09/25/21 mg-3 mg-10 mg-0.5 mg/mL ear drops,susp (Cortisporin-TC) doxycycline hyclate 100 mg tablet 100 mg PO BID #20 tabs 11/19/21 meclizine 25 mg tablet 25 mg PO TID PRN dizziness #14 tabs 11/19/21 Allergies Allergy/AdvReac Type Severity Reaction Status Date / Time morphine [MORPHINE] Allergy Severe HIVES, Verified 11/19/21 01:59 high temp, nausea tramadol [TRAMADOL] Allergy Severe SWEATING, Verified 11/19/21 01:59 VOMITING, vomiting amoxicillin [From AUGMENTIN] AdvReac Severe CONSTIPATIO Verified 11/19/21 01:59 N clavulanic acid AdvReac Severe CONSTIPATIO Verified 11/19/21 01:59 [From AUGMENTIN] N codeine [CODEINE] AdvReac Severe NAUSEA Verified 11/19/21 01:59 levofloxacin [From LEVAQUIN] AdvReac Severe CONSTIPATIO Verified 11/19/21 01:59 N Sulfa(Sulfonamide Allergy Unknown Unknown Uncoded 10/04/20 22:39 Antibiotics) Review of Systems Review of Systems: Yes all other systems are reviewed and are negative PMFSH Past Medical History Medical History Anxiety Asthma Bronchitis Chronic respiratory failure COPD (chronic obstructive pulmonary disease) Diverticulitis Dizziness Emphysema lung Hypertension Otitis media Vertigo Surgical History History of breast surgery History of laparotomy Family History Family History Other No family history of coronary artery disease Social History Social History Household Members: Spouse Housing: Other Housing Other:: motel. Do you presently have visiting nurse or other home services: No Alcohol intake: never Patient Tobacco Use Status: Never used Tobacco Advance Directives: No Advance Directives Information Provided: No service: No Current occupational status: disabled Physical Exam Vital Signs: Vital Signs: Last Vital Signs Pulse 83 11/19/21 01:58 Resp 18 11/19/21 01:58 Appearance: Alert. Oriented X3. No acute distress. Eyes: PERRLA, No Nystagmus ENT: Pharynx normal. Oral Mucosa moist Neck: Normal inspection. Neck supple. CVS: Normal heart rate and rhythm. Pulses normal. Respiratory: mod respiratory distress. Equal air entry bilateral, no rales/rhonchi,bilateral decreased air entry occasional wheezing Abdomen: Soft and nontender. Bowel sounds are present, no mass palpable, no CVA tenderness Skin: Skin warm and dry. Normal skin color. Normal skin turgor. Extremities: No lower extremity edema. No calf tenderness Neuro: Oriented X 3. No motor deficit. No sensory deficit.No cerebellar signs , cranial nerves II-XII intact MDM - SOB/Dyspnea MDM Narrative Medical decision making narrative: 350am Patient with property denies feeling which she had before asking for Ativan as she could not get her medication today feeling better at this time b reathing is improved discharge patient patient has rating 96% on 5 L oxygen Lab Data Attestation: I reviewed the patient's lab results. Result diagrams: 11/19/21 01:47 11/19/21 02:07 Labs: Lab Results 11/19/21 11/19/21 11/19/21 Range/Units 01:47 01:47 01:47 WBC 8.2 (4.8-10.8) X10*3/uL RBC 3.85 L (4.20-5.50) X10*6/uL Hgb 10.5 L (12.0-16.0) g/dl Hct 34.3 L (37.0-47.0) % MCV 89.1 (80.0-98.0) fL MCH 27.3 (27.0-33.0) pg MCHC 30.6 L (31.0-35.0) g/dl RDW 14.3 (11.0-16.0) % Plt Count 333 (160-400) X10*3/uL MPV 9.0 L (9.4-12.3) fL Immature Gran % (Auto) 0.2 (0.0-0.4) % Neut % (Auto) 63.0 (45-73) % Lymph % (Auto) 24.9 (20-40) % Clare % (Auto) 9.4 (2-11) % Eos % (Auto) 1.9 (0-4) % Baso % (Auto) 0.6 (0-2) % Lymph # (Auto) 2.1 (1.2-4.9) X10*3/uL Clare # (Auto) 0.8 (0.1-1.2) X10*3/uL Eos # (Auto) 0.2 (0.0-0.4) X10*3/uL Baso # (Auto) 0.1 (0.0-0.2) X10*3/uL Abs Immat Gran (auto) 0.02 (0.00-0.03) X10*3/uL Absolute Neuts (auto) 5.2 (2.0-8.3) x10*3/uL Absolute Nucleated RBC 0.000 (0.0-0.012) X10*3/uL Nucleated RBC % (auto) 0.0 (0.0-0.2) /100WBC Sodium (135-145) mmol/L Potassium (3.3-5.1) mmol/L Chloride (96-108) mmol/L Carbon Dioxide (22-29) mmol/L Anion Gap (12-20) BUN (9-16) mg/dL Creatinine (0.5-1.4) mg/dL Estim Creat Clear Calc Estimated GFR Random Glucose (60-115) mg/dL Calcium (8.4-10.2) mg/dL Troponin I High Sens < 3.5 (<3.5-17.0) ng/L COVID-19 (SEAN) Negative (Negative) COVID-19 Clin Com See Note 11/19/21 Range/Units 02:07 WBC (4.8-10.8) X10*3/uL RBC (4.20-5.50) X10*6/uL Hgb (12.0-16.0) g/dl Hct (37.0-47.0) % MCV (80.0-98.0) fL MCH (27.0-33.0) pg MCHC (31.0-35.0) g/dl RDW (11.0-16.0) % Plt Count (160-400) X10*3/uL MPV (9.4-12.3) fL Immature Gran % (Auto) (0.0-0.4) % Neut % (Auto) (45-73) % Lymph % (Auto) (20-40) % Clare % (Auto) (2-11) % Eos % (Auto) (0-4) % Baso % (Auto) (0-2) % Lymph # (Auto) (1.2-4.9) X10*3/uL Clare # (Auto) (0.1-1.2) X10*3/uL Eos # (Auto) (0.0-0.4) X10*3/uL Baso # (Auto) (0.0-0.2) X10*3/uL Abs Immat Gran (auto) (0.00-0.03) X10*3/uL Absolute Neuts (auto) (2.0-8.3) x10*3/uL Absolute Nucleated RBC (0.0-0.012) X10*3/uL Nucleated RBC % (auto) (0.0-0.2) /100WBC Sodium 143 (135-145) mmol/L Potassium 3.9 (3.3-5.1) mmol/L Chloride 98 (96-108) mmol/L Carbon Dioxide 36 H (22-29) mmol/L Anion Gap 13 (12-20) BUN 16 (9-16) mg/dL Creatinine 0.59 (0.5-1.4) mg/dL Estim Creat Clear Calc TNP Estimated GFR > 60 Random Glucose 105 (60-115) mg/dL Calcium 9.6 (8.4-10.2) mg/dL Troponin I High Sens (<3.5-17.0) ng/L COVID-19 (SEAN) (Negative) COVID-19 Clin Com Discharge Plan Discharge Clinical Impression: Acute exacerbation of chronic obstructive airways disease, Anxiety, Benign paroxysmal positional vertigo Patient Disposition: Home, Self-Care Instructions: COPD (Chronic Obstructive Pulmonary Disease) (ED), Benign Paroxysmal Positional Vertigo (ED), Anxiety (ED) Additional Instructions: Continue to take her nebulizing treatment and prednisone as prescribed Medication for anxiety and dizziness as prescribed Prescriptions: New meclizine 25 mg tablet 25 mg PO TID PRN (Reason: dizziness) Qty: 14 0RF doxycycline hyclate 100 mg tablet 100 mg PO BID Qty: 20 0RF No [facility] albuterol sulfate 2.5 mg /3 mL (0.083 %) solution for nebulization 1 vial inhalation 6XD wntgkufvym-ohpmlnnvtrojt-toxc 50-325-40 mg tablet 1 - 2 tab PO Q12H PRN (Reason: Headache) Cortisporin-TC 3.3-3-10-0.5 mg/mL drops,suspension 4 drp otic (ear) left QID Qty: 10 0RF meclizine 25 mg tablet 25 mg PO TID PRN (Reason: dizziness) Qty: 20 0RF ipratropium bromide 0.02 % solution 2.5 ml inhalation Q6H PRN (Reason: wheezing) diltiazem HCl 360 mg capsule,extended release 24 hr 1 cap PO DAILY lorazepam 2 mg tablet 1 tab PO Q6H PRN (Reason: anxiety) Spiriva with HandiHaler 18 mcg capsule, w/inhalation device 1 cap inhalation DAILY
[2021-11-19 01:52] LABS: Basophils Absolute Auto 0.1 X10*3/uL (0.0-0.2); Basophils Percent Auto 0.6 % (0-2); Eosinophils Absolute Auto 0.2 X10*3/uL (0.0-0.4); Eosinophils Percent Auto 1.9 % (0-4); Hematocrit 34.3 % (37.0-47.0); Hemoglobin 10.5 g/dl (12.0-16.0); Imm Gran Abs Auto 0.02 X10*3/uL (0.00-0.03); Imm Gran Pct Auto 0.2 % (0.0-0.4); Lymphocytes Absolute Auto 2.1 X10*3/uL (1.2-4.9); Lymphocytes Percent Auto 24.9 % (20-40); MANUAL DIFF FLAG NO; Mean Corpuscular HGB Conc 30.6 g/dl (31.0-35.0); Mean Corpuscular Hemoglobin 27.3 pg (27.0-33.0); Mean Corpuscular Volume 89.1 fL (80.0-98.0); Monocytes Absolute Auto 0.8 X10*3/uL (0.1-1.2); Monocytes Percent Auto 9.4 % (2-11); Neutrophils Absolute Auto 5.2 x10*3/uL (2.0-8.3); Platelet Count 333 X10*3/uL (160-400); Red Blood Count 3.85 X10*6/uL (4.20-5.50); Red Cell Distribution Width 14.3 % (11.0-16.0); White Blood Count 8.2 X10*3/uL (4.8-10.8)
[2021-11-19] MEDS: Albuterol/Iprat 2.5/0.5MG 3 ML AMPUL.NEB INHALE (01:55)
[2021-11-19] MEDS: Albuterol Sulfate (0.083%) 2.5 MG/3 ML VIAL.NEB INHALE (01:56)
[2021-11-19 01:58] VITALS: PULSE 83; RESP 18; O2SAT 99
--- OUTSIDE RECORDS SUMMARY | 2021-11-19 02:08 | XMS_ITS | Continuity of Care Document ---
:1955 Author Organization [facility] Address [address] [place] [id number]- Care Team Providers Name Role Phone Name Mickey WATSON Primary Care Physician Encounter [facility] Date(s): 04/06/19 - 04/06/[address] [address]- [facility] Encounter Diagnosis Diverticulitis (Final) - 04/06/19 Discharge Disposition: A-D/C Home Attending Physician: Darryn Chauhan MD Admitting Physician: Darryn Chauhan MD Referring Physician: Not on Staff, Referring MD Allergies, Adverse Reactions, Alerts Substance Reaction Severity Status codeine Persistent Mild Active tetracycline Active sulfADIAZINE Tetracyclines group allergy Acti ve Tetrasomy traMADol Active Medications albuterol 0.083% inhalation solution 3 mL = 2.5 mg, Neb, Every 6 hours, 0 Refills, Maintenance, 08/03/17 18:40:09 EDT Start Date: 08/03/17 Status: OrderedAtrovent HFA 17 mcg/inh inhalation aerosol 2 puffs, Inhalation, 4 times a day, 0 Refills, Maintenance, 08/03/17 18:40:19 EDT Start Date: 08/03/17 Status: OrderedAugmentin 875 mg-125 mg oral tablet 1 tablet, By Mouth, Every 12 hours, for 10 days, # 20 tablet, 0 Refills, Acute 04/11/19 4:55:00 EST,04/01/19 4:55:00 EST, Tablet, [facility], 149, cm, 04/01/19 2:40:00 EST, Height, 52, kg, 04/01/19 2:40:00 EST, Dry Weight Start Date: 04/01/19 Stop Date: 04/11/19 Status: Orderedciprofloxacin-dexamethasone 0.3%-0.1% otic suspension 4 drops, Ear, Left, 2 times a day, 0 Refills, Maintenance, 08/03/17 18:42:27 EDT Start Date: 08/03/17 Status: OrderedLorazepam = 2 mg, By Mouth, 2 times a day, 0 Refills, Maintenance, 08/03/17 18:40:59 EDT Start Date: 08/03/17 Status: OrderedZofran 4 mg oral tablet 1 tablet = 4 mg, By Mouth, Every 8 hours, PRN as needed for nausea/vomiting, # 16 tablet, 0 Refills,Maintenance, 04/01/19 4:55:00 EST, Tablet, [facility], 149, cm, 04/01/19 2:40:00 EST, Height, 52, kg, 04/01/19 2:40:00 EST, Dry Weight Start Date: 04/01/19 Stop Date: 04/06/19 Status: Ordered Vital Signs Most recent to oldest 1 2 3 [Reference Range]: Oxygen Saturation [94-100 %] 98 % 95 % 97 % (04/06/19 2: PM) (04/06/19 11:12 AM) (04/06/19 6: 23 AM) Pulse Rate [55-90 bpm] 74 bpm 82 bpm 87 bpm (04/06/19 2:29 PM) (04/06/19 11:12 AM) (04/06/19 6: 23 AM) Blood Pressure [90-138/55-84 122/65 mm Hg 126/65 mm Hg 120 /47 mm Hg mm Hg] (04/06/19 2:29 PM) (04/06/19 11:12 AM) (04/06/19 6: 23 AM) Respiratory Rate [16-30 16 br/min 16 br/min 16 br/mi n br/min] (04/06/19 2:29 PM) (04/06/19 1:06 PM) (04/06/19 11: 12 AM) Temperature [96.8-100.4 DegF] 98.0 DegF 98.2 DegF (04/06/19 6:23 AM) (04/06/19 3:55 AM) Liters per Minute 4 L/min 4 L/min 2 L/min (04/06/19 2:29 PM) (04/06/19 11:12 AM) (04/06/19 6: 23 AM) Mode of Delivery (Oxygen) Nasal cannula Nasal cannula Nasal cannula (04/06/19 2:29 PM) (04/06/19 11:12 AM) (04/06/19 6: 23 AM) Blood pressure sites Arm, right Arm, left Arm, left (04/06/19 2:29 PM) (04/06/19 11:12 AM) (04/06/19 6: 23 AM) Temperature Route Oral Oral (04/06/19 6:23 AM) (04/06/19 3:55 AM) Social History Social History Type Response Smoking Status Former smoker entered on: 08/03/17 Sex
--- OUTSIDE RECORDS SUMMARY | 2021-11-19 02:08 | XMS_ITS | Continuity of Care Document ---
:1955 Author Organization [facility] Address [address] [place] [id number]- Care Team Providers Name Role Phone Name Mickey WATSON Primary Care Physician Encounter [facility] Date(s): 04/08/20 - 04/08/[address] [address]- Discharge Disposition: A-D/C Walkout Attending Physician: Not on Staff, Attending MD Admitting Physician: Not on Staff, Admitting MD Referring Physician: Not on Staff, Referring MD Allergies, Adverse Reactions, Alerts Substance Reaction Severity Status codeine Persistent Mild Active tetracycline Active morphine Active traMADol Active Medications albuterol 0.083% inhalation solution 3 mL = 2.5 mg, Neb, Every 6 hours, 0 Refills, Maintenance, 08/03/17 18:40:09 EDT Start Date: 08/03/17 Status: OrderedAtrovent HFA 17 mcg/inh inhalation aerosol 2 puffs, Inhalation, 4 times a day, 0 Refills, Maintenance, 08/03/17 18:40:19 EDT Start Date: 08/03/17 Status: OrderedDilTIAZem Hydrochloride CD 360 mg/24 hours oral capsule, extended release 1 capsule = 360 mg, By Mouth, Daily, # 30 capsule, 0 Refills, Maintenance, 06/21/19 22:03:00 EDT, ERCapsule Start Date: 06/21/19 Status: Orderedibuprofen 600 mg oral tablet 600 mg, 1, tablet, By Mouth, 3 times a day, PRN, with food, # 15 tablet, Refills 0, Tot. Refills 0, Maintenance, as needed for pain, 02/22/20 19:50:00 EST, Route to Pharmacy Electronically, [id number], Partial fill upon patient reques... Start Date: 02/22/20 Stop Date: 02/27/20 Status: OrderedLorazepam = 2 mg, By Mouth, 2 times a day, 0 Refills, Maintenance, 08/03/17 18:40:59 EDT Start Date: 08/03/17 Status: OrderedOxygen 0 Refills, Maintenance, 07/25/19 8:22:00 EDT Start Date: 07/25/19 Status: Ordered Problem List Condition Effective Dates Status Health Status Informant End stage COPD(Confirmed) Active Hypertension(Confirmed) Active Anxiety and depression(Confirmed) Active Vital Signs Most recent to oldest [Reference Range]: 1 2 Oxygen Saturation [94-100 %] 100 % 97 % (04/08/20 2:31 AM) (04/08/20 2:20 AM) Pulse Rate [55-90 bpm] 100 bpm 106 bpm *H* *H* (04/08/20 2:31 AM) (04/08/20 2:20 AM) Blood Pressure [90-138/55-84 mm Hg] 173/71 mm Hg *H* (04/08/20 2:31 AM) Respiratory Rate [16-30 br/min] 18 br/min (04/08/20 2:31 AM) Temperature [96.8-100.4 DegF] 98.3 DegF (04/08/20 2:31 AM) Liters per Minute 3 L/min (04/08/20 2:20 AM) Mode of Delivery (Oxygen) Room air Nasal cannula (04/08/20 2:31 AM) (04/08/20 2:20 AM) Blood pressure sites Arm, right (04/08/20 2:31 AM) Temperature Route Oral (04/08/20 2:31 AM) Social History Social History Type Response Smoking Status Former smoker, quit more irene n 30 days ago entered on: 06/21/19 Sex
--- OUTSIDE RECORDS SUMMARY | 2021-11-19 02:08 | XMS_ITS | Continuity of Care Document ---
:1955 Author Organization [facility] Address [address] [place] [id number] Care Team Providers Name Role Phone Name Mickey WATSON Primary Care Physician Encounter [facility] [place] Date(s): 10/11/21 - 10/23/[address] [id number] Discharge Disposition: A-D/C Home Attending Physician: Mio Villavicencio MD Admitting Physician: Rosa Montlavo MD Referring Physician: Rosa Montalvo MD Allergies, Adverse Reactions, Alerts Substance Reaction Severity Status codeine Persistent Mild Active tetracycline Active morphine1 Active sulfa drugs Active traMADol Active 1patient said she is no longer alllergic Immunizations Given and Recorded Vaccine Date Status Refusal Reason SARS-CoV-2 (COVID-19) [id number] vaccine 05/21/20 Recorded Medications Advair Diskus 250 mcg-50 mcg inhalation powder 1, puffs, Inhalation, 2 times a day, # 28 each, Refills 0, Maintenance, 10/11/21 15:08:00 EDT, Powder Start Date: 10/11/21 Status: Orderedalbuterol 0.083% inhalation solution 3 mL = 2.5 mg, Neb, Every 6 hours, PRN Wheezing/Shortness of Breath, 0 Refills, Maintenance, 08/03/17 18:40:09 EDT Start Date: 08/03/17 Status: OrderedAtivan 2 mg oral tablet 1 tablet = 2 mg, By Mouth, Every 6 hours, PRN as needed for anxiety, # 16 tablet, 0 Refills, Maintenance, 07/02/21 23:05:00 EDT, [facility], Partial fill upon patient request if the prescription is for a schedule II opioid drug., 148, cm... Start Date: 07/02/21 Stop Date: 07/06/21 Status: OrderedAtrovent HFA 17 mcg/inh inhalation aerosol 2 puffs, Inhalation, 4 times a day, 0 Refills, Maintenance, 08/03/17 18:40:19 EDT Start Date: 08/03/17 Status: OrderedDilTIAZem Hydrochloride CD 360 mg/24 hours oral capsule, extended release 1 capsule = 360 mg, By Mouth, Daily, # 30 capsule, 0 Refills, Maintenance, 06/21/19 22:03:00 EDT, ERCapsule Start Date: 06/21/19 Status: OrderedFioricet Tablet 2 tablet, Tablet, By Mouth, 2 times a day, PRN for Headache, Routine, 10/11/21 16:32:00 EDT Notes: Butalbital 50mg, Acetaminophen 325mg, Caffeine 40mg per tablet Start Date: 10/11/21 Stop Date: 10/24/21 Status: DiscontinuedOxygen 0 Refills, Maintenance, 07/25/19 8:22:00 EDT Start Date: 07/25/19 Status: Ordered Problem List Condition Effective Dates Status Health Status Informant COVID-19(Confirmed)1 09/11/21 Active End stage COPD(Confirmed) Active Hypertension(Confirmed) Active Anxiety and depression(Confirmed) Active 1Problem added by Discern Expert Results Radiology Reports (Most Recent Ten) Exam Date Time Procedure Performing Provider Status 10/19/21 2:23 AM Chest Portable Abby Rosa (Verified) Notes:(Chest Portable) Reason For Exam: Shortness of BreathRESULT: Chest Portable Chest Portable AP upright at 1:50 AM REASON: Shortness of Breath; Clinical Question(s): Pneumonia / Pneumonia COMPARISON: 10/17/2021 FINDINGS: LINES AND TUBES: None. LUNGS AND PLEURA: Mild bibasilar atelectasis, otherwise clear lungs. No pleural effusion. No pneumothorax. HEART, MEDIASTINUM AND YANCY: Heart is normal in size. Aorta is mildly calcified. BONES AND SOFT TISSUES: Right chest wall soft tissue emphysema, similar to prior. IMPRESSION: No significant change. WSN: [id number] Ordering Physician: Nida Grimaldo Dictated By: Bg Prajapati MD Dictated Date/Time: 10/19/21 8:31 am Reviewed By: Bg Prajapati MD Signed By: Bg Prajapati MD Signed Date/Time: 10/19/21 8:31 am Transcribed By: CHING Transcribed Date/Time: 10/19/21 8:30 am Exam Date Time Procedure Performing Provider Status 10/17/21 11:21 PM Chest Portable León Parmar (Verified) Notes:(Chest Portable) Reason For Exam: Start BIPAP, recent PTX;Other:RESULT: Chest Portable Chest Portable Reason: Other:; Start BIPAP, recent PTX; Clinical Question(s): Other:; Start BIPAP, recent PTX COMPARISON: 10/17/2021 FINDINGS: LINES AND TUBES: None. LUNGS AND PLEURA: Clear lungs. Normal pulmonary vascularity. No pleural effusion. No pneumothorax. HEART, MEDIASTINUM AND YANCY: Heart is normal in size. Normal upper mediastinal and hilar contour. BONES AND SOFT TISSUES: Subcutaneous emphysema noted in the right chest. This is similar to previous examination. IMPRESSION: No pneumothorax identified. No interval change from previous exam. WSN: [id number] Ordering Physician: Chiki Hobbs Dictated By: Jovani Gordon MD Dictated Date/Time: 10/17/21 11:29 p Reviewed By: Jovani Gordon MD Signed By: Jovani Gordon MD Signed Date/Time: 10/17/21 11:29 pm Transcribed By: CHING Transcribed Date/Time: 10/17/21 11:27 pm Exam Date Time Procedure Performing Provider Status 10/17/21 3:49 PM Chest Portable Magda Hutson (Verified) Notes:(Chest Portable) Reason For Exam: COPD;COPDRESULT: Chest Portable AP upright portable chest dated October 17, 2021 at 1535 hours. Comparison films are from earlier in the day and October 16, 2021. HISTORY: Status post removal of a chest tube. FINDINGS: The cardiac silhouette is within normal limits for size. The aorta is mildly unfolded. A right-sided chest tube has been removed. No pneumothorax is appreciated. Opacity at the right lung base consistent with atelectasis is stable. Some minimal opacity at the left lung base is stable. Subcutaneous emphysema on the right is stable. IMPRESSION: Status post removal of right-sided chest tube. Otherwise, no change. Examination 36432. Thank you for allowing me to participate in the care of this patient. WSN: [id number] Ordering Physician: Chiki Hobbs Dictated By: Pedro Rodriges MD Dictated Date/Time: 10/17/21 4:02 pm Reviewed By: Pedro Rodriges MD Signed By: Pedro Rodriges MD Signed Date/Time: 10/17/21 4:02 pm Transcribed By: CHING Transcribed Date/Time: 10/17/21 4:01 pm Exam Date Time Procedure Performing Provider Status 10/17/21 1:54 AM Chest 2 Views Frontal and Lat Linette Luna (Verified) Notes:(Chest 2 Views Frontal and Lat) Reason For Exam: Tube PlacementRESULT: Chest 2 Views Frontal and Lat AP and lateral chest x-ray dated October 17, 2021. Comparison films are from October 16 and October 15, 2021. HISTORY: Follow-up abnormal chest x-ray. FINDINGS: The cardiac silhouette is at the upper limits of normal for size. Hilar and mediastinal structures are unremarkable. A small bore chest tube remains in place on the right. A very small right-sided pneumothorax is stable. Some increased interstitial markings are present bilaterally. These have not significantly changed. Minimal bibasilar opacities consistent with atelectasis are stable. IMPRESSION: No significant interval change. Examination 94600. Thank you for allowing me to participate in the care of this patient. WSN: [id number] Ordering Physician: Kimberly Hannon Dictated By: Pedro Rodriges MD Dictated Date/Time: 10/17/21 8:36 am Reviewed By: Pedro Rodriges MD Signed By: Pedro Rodriges MD Signed Date/Time: 10/17/21 8:36 am Transcribed By: CHING Transcribed Date/Time: 10/17/21 8:35 am Exam Date Time Procedure Performing Provider Status 10/16/21 4:24 PM Chest 2 Views Frontal and Lat Ganga [facility] (Verified) Notes:(Chest 2 Views Frontal and Lat) Reason For Exam: Shortness of Breath RESULT: Chest 2 Views Frontal and Lat . PROCEDURE: Chest 2 Views Frontal and Lat INDICATION: 66 years old female with RIGHT pleural catheter. COMPARISON: Multiple chest radiographs 2013 through October 16, 2021. Unenhanced chest CT October 12, 2021. FINDINGS: PA and lateral upright views of the chest obtained. Lines and tubes:Right-sided anterior pleural catheter entering in the mid RIGHT hemithorax ending posterolaterally in the RIGHT upper lobe again seen. Lungs and pleura: Mild to moderate hyperinflation of the lungs consistent with known inflation againseen. Mild linear atelectasis at the lung bases again noted. Possible small loculated RIGHT anteriorinferior pneumothorax. No pleural effusions.No evidence of pneumothorax. Heart, mediastinum and yancy: The cardiomediastinal silhouette and pulmonary vasculature are unremarkable. No cardiomegaly or pulmonary venous hypertension. Bones and soft tissues: Moderate subcutaneous emphysema again noted in the RIGHT chest wall anteriorly and laterally. Mild to moderate degenerative changes in the thoracic spine. Moderate osteopenia. IMPRESSION: 1. Possible small loculated anterior inferior RIGHT pneumothorax in the presence of a RIGHT pleural catheter and probably unchanged. 2. Evidence of emphysema and linear bibasilar atelectasis. 3. Significance of the tendons emphysema in the RIGHT chest wall Thank you for allowing me to participate in the care of this patient. WSN: [id number] Ordering Physician: Suresh Lin Dictated By: Cody Salvador MD Dictated Date/Time: 10/16/21 5:19 pm Reviewed By: Cody Salvador MD Signed By: Cody Salvador MD Signed Date/Time: 10/16/21 5:19 pm Transcribed By: CHING Transcribed Date/Time: 10/16/21 5:19 pm Exam Date Time Procedure Performing Provider Status 10/16/21 6:34 AM Chest 2 Views Frontal and Lat Zack Muhammad; Auth (Verified) Notes:(Chest 2 Views Frontal and Lat) Reason For Exam: PTX;Other:RESULT: Chest 2 Views Frontal and Lat AP and lateral chest x-ray dated October 16, 2021. Comparison films are from October 15 and October 14, 2021. HISTORY: Follow-up abnormal chest x-ray. FINDINGS: The cardiac silhouette is within normal limits for size. A right-sided chest tube is in place directed superiorly and posteriorly. This is not significantly changed. Opacity at the right lungbase is increased consistent with pleural effusion. Some increased interstitial markings are present bilaterally. These are stable. Subcutaneous emphysema in the right chest wall and upper abdomen is unchanged. Overall, the lungs are hyperinflated. Degenerative changes are noted in the spine. IMPRESSION: Developing opacity at the right lung base consistent with pleural effusion. Mild interstitial edema. Examination 54251. Thank you for allowing me to participate in the care of this patient. WSN: [id number] Ordering Physician: Hannah Sy Dictated By: Pedro Rodriges MD Dictated Date/Time: 10/16/21 10:52 a Reviewed By: Pedro Rodriges MD Signed By: Pedro Rodriges MD Signed Date/Time: 10/16/21 10:52 am Transcribed By: CHING Transcribed Date/Time: 10/16/21 10:52 am Exam Date Time Procedure Performing Provider Status 10/15/21 7:34 PM Chest Portable Cy Harkins; Rolando (Verified) Notes:(Chest Portable) Reason For Exam: Shortness of BreathRESULT: Chest Portable AP portable chest, INDICATION: Reason: Shortness of Breath; Clinical Question(s): Pneumothorax COMPARISON: Plain film of the chest from 6:32 AM today. FINDINGS: LINES AND TUBES: There is a right side pigtail catheter, unchanged. LUNGS AND PLEURA AND MEDIASTINUM: There is right chest wall emphysema. There is no pneumothorax. Trace right pleural effusion. Mild left basilar atelectasis. Normal size heart. IMPRESSION: No pneumothorax. Mild left basilar atelectasis WSN: [id number] Ordering Physician: Srinivas Kumar Dictated By: Marii Birmingham MD Dictated Date/Time: 10/15/21 8:07 pm Reviewed By: Marii Birmingham MD Signed By: Marii Birmingham MD Signed Date/Time: 10/15/21 8:07 pm Transcribed By: CHING Transcribed Date/Time: 10/15/21 8:06 pm Exam Date Time Procedure Performing Provider Status 10/15/21 6:33 AM Chest 2 Views Frontal and Lat Fuentes , Nickolas; Au th (Verified) Notes:(Chest 2 Views Frontal and Lat) Reason For Exam: PTX;Other:RESULT: Chest 2 Views Frontal and Lat Chest 2 Views Frontal and Lat Reason: PTX; follow-up. COMPARISON: 10/14/2021. FINDINGS: LINES AND TUBES: Right pigtail pleural tube remains in place. LUNGS AND PLEURA: No recurrent pneumothorax is seen. Trace right sided pleural effusion. No pneumothorax. HEART, MEDIASTINUM AND YANCY: Heart is normal in size. Normal upper mediastinal and hilar contour. BONES AND SOFT TISSUES: No acute abnormality. Extensive subcutaneous emphysema along the right lateral chest wall. IMPRESSION: Unchanged. WSN: [id number] Ordering Physician: Kerrie Berrios Dictated By: Idris Mckeon MD Dictated Date/Time: 10/15/21 12:29 p Reviewed By: Idris Mckeon MD Signed By: Idris Mckeon MD Signed Date/Time: 10/15/21 12:29 pm Transcribed By: CHING Transcribed Date/Time: 10/15/21 12:28 pm Exam Date Time Procedure Performing Provider Status 10/14/21 6:24 AM Chest 2 Views Frontal and Lat Nidhi Tate (Verified) Notes:(Chest 2 Views Frontal and Lat) Reason For Exam: PTX;Other:RESULT: Chest 2 Views Frontal and Lat Chest 2 Views Frontal and Lat INDICATION: F U PTX / COMPARISON: 10/13/2021 FINDINGS: Patient is rotated towards the right LINES AND TUBES: Apically directed right chest tube. LUNGS AND PLEURA: Hazy right perihilar and right basilar airspace opacity, likely atelectasis. No definite pleural effusion. Blunting of the right lateral costophrenic angle on the AP view is likely due to rotation, with no effusion seen on the lateral view posteriorly. No pneumothorax identified, though the right apex is partially obscured by the patient's chin. HEART, MEDIASTINUM AND YANCY: Unchanged. BONES AND SOFT TISSUES: Persistent right chest wall subcutaneous emphysema. IMPRESSION: No pneumothorax identified, though the right apex is partially obscured by the patient's chin. WSN: [id number] Ordering Physician: Kerrie Berrios Dictated By: Bg Prajapati MD Dictated Date/Time: 10/14/21 9:45 am Reviewed By: Bg Prajapati MD Signed By: Bg Prajapati MD Signed Date/Time: 10/14/21 9:45 am Transcribed By: CHING Transcribed Date/Time: 10/14/21 9:42 am Exam Date Time Procedure Performing Provider Status 10/13/21 6:31 AM Chest 2 Views Frontal and Lat Maxwell , Darcie; Au th (Verified) Notes:(Chest 2 Views Frontal and Lat) Reason For Exam: PTX;Other:RESULT: Chest 2 Views Frontal and Lat Chest 2 Views Frontal and Lat Reason: Follow-up of pneumothorax COMPARISON: Chest x-ray and CT chest 10/12/2021, and multiple prior chest x-ray FINDINGS: Right pleural drain is stable. Soft tissue gas in the right chest wall and neck is unchanged. Small right pneumothorax with approximately 1 cm maximal right apical pleural separation. IMPRESSION: No change in the right pleural drain. Small right pneumothorax. Noted on 10/12/[address] I have personally reviewed the images and I agree with this report. WSN: [id number] Ordering Physician: Kerrie Berrios Dictated By: Nani Galdamez MD Dictated Date/Time: 10/13/21 10:01 a Reviewed By: William Jenkins MD Signed By: William Jenkins MD Signed Date/Time: 10/13/21 10:06 am Transcribed By: CHING Transcribed Date/Time: 10/13/21 9:52 am Vital Signs Most recent to oldest 1 2 3 [Reference Range]: Height 147 cm 147 cm 147 cm (10/23/21 4:33 AM) (10/22/21 4:18 PM) (10/22/21 1:0 0 PM) Weight 62.7 kg 63 kg (10/20/21 1:00 AM) (10/11/21 2:27 PM) Oxygen Saturation [94-100 98 % 96 % 93 % %] (10/23/21 8:05 AM) (10/23/21 4:33 AM) *L* (10/22/21 4:18 PM ) Pulse Rate [55-90 bpm] 101 bpm 103 bpm 113 bpm *H* *H* *H* (10/23/21 8:05 AM) (10/23/21 4:33 AM) (10/22/21 4:1 8 PM) Body Mass Index 29.15 [18.5-24.99] *H* (10/11/21 2:27 PM) Blood Pressure 121/57 mm Hg 128/57 mm Hg 155/64 mm Hg [90-138/55-84 mm Hg] (10/23/21 8:05 AM) (10/23/21 4:33 AM) *H* (10/22/21 4:18 PM ) Respiratory Rate [16-30 20 br/min 19 br/min 22 br/mi n br/min] (10/23/21 8:05 AM) (10/23/21 4:33 AM) (10/22/21 5:2 3 PM) Temperature [96.8-100.4 98.2 DegF 97.8 DegF 98.3 Deg F DegF] (10/23/21 4:33 AM) (10/22/21 4:18 PM) (10/22/21 1:0 0 PM) Liters per Minute 4 L/min 5 L/min 4 L/min (10/23/21 8:05 AM) (10/23/21 4:33 AM) (10/22/21 4:1 8 PM) Mode of Delivery (Oxygen) Nasal cannula Nasal cannula High f low nasal cannula (10/23/21 8:05 AM) (10/23/21 4:33 AM) (10/22/21 4:1 8 PM) Blood pressure sites Arm, left Arm, left Arm, left (10/23/21 8:05 AM) (10/23/21 4:33 AM) (10/22/21 4:1 8 PM) Temperature Route Oral Oral Oral (10/23/21 4:33 AM) (10/22/21 4:18 PM) (10/22/21 1:0 0 PM) Dry Weight 63 kg (10/11/21 2:27 PM) Social History Social History Type Response Smoking Status Former smoker, quit more irene n 30 days ago entered on: 08/31/21 Sex Note [facility] , CIS S: TRANSCRIBE Alo WATSON, Bg S: VERIFY Event Display: Result: Authored Date: [id number] Chest Portable AP upright at 1:50 AM REASON: Shortness of Breath; Clinical Question(s): Pneumonia / Pneumonia COMPARISON: 10/17/2021 FINDINGS: LINES AND TUBES: None. LUNGS AND PLEURA: Mild bibasilar atelectasis, otherwise clear lungs. No pleural effusion. No pneumothorax. HEART, MEDIASTINUM AND YANCY: Heart is normal in size. Aorta is mildly calcified. BONES AND SOFT TISSUES: Right chest wall soft tissue emphysema, similar to prior. IMPRESSION: No significant change. WSN: [id number] Ordering Physician: Nida Grimaldo Dictated By: Bg Prajapati MD Dictated Date/Time: 10/19/21 8:31 am Reviewed By: Bg Prajapati MD Signed By: Bg Prajapati MD Signed Date/Time: 10/19/21 8:31 am Transcribed By: CHING Transcribed Date/Time: 10/19/21 8:30 ABIGAIL Gardner S: TRANSCRIBE Pedro Rodriges MD: VERIFY Event Display: Result: Authored Date: [id number] AP and lateral chest x-ray dated October 17, 2021. Comparison films are from October 16 and October 15, 2021. HISTORY: Follow-up abnormal chest x-ray. FINDINGS: The cardiac silhouette is at the upper limits of normal for size. Hilar and mediastinal structures are unremarkable. A small bore chest tube remains in place on the right. A very small right-sided pneumothorax is stable. Some increased interstitial markings are present bilaterally. These have not significantly changed. Minimal bibasilar opacities consistent with atelectasis are stable. IMPRESSION: No significant interval change. Examination 08506. Thank you for allowing me to participate in the care of this patient. WSN: [id number] Ordering Physician: Kimberly Hannon Dictated By: Pedro Rodriges MD Dictated Date/Time: 10/17/21 8:36 am Reviewed By: Pedro Rodriges MD Signed By: Pedro Rodriges MD Signed Date/Time: 10/17/21 8:36 am Transcribed By: CHING Transcribed Date/Time: 10/17/21 8:35 ABIGAIL Gardner S: TRANSCRIBE Pedro Rodriges MD: VERIFY Event Display: Result: Authored Date: [id number] AP upright portable chest dated October 17, 2021 at 1535 hours. Comparison films are from earlier in the day and October 16, 2021. HISTORY: Status post removal of a chest tube. FINDINGS: The cardiac silhouette is within normal limits for size. The aorta is mildly unfolded. A right-sided chest tube has been removed. No pneumothorax is appreciated. Opacity at the right lung base consistent with atelectasis is stable. Some minimal opacity at the left lung base is stable. Subcutaneous emphysema on the right is stable. IMPRESSION: Status post removal of right-sided chest tube. Otherwise, no change. Examination 66217. Thank you for allowing me to participate in the care of this patient. WSN: [id number] Ordering Physician: Chiki Hobbs Dictated By: Pedro Rodriges MD Dictated Date/Time: 10/17/21 4:02 pm Reviewed By: Pedro Rodriges MD Signed By: Pedro Rodriges MD Signed Date/Time: 10/17/21 4:02 pm Transcribed By: CHING Transcribed Date/Time: 10/17/21 4:01 pmBHSPowerscABIGAIL gutierrez S: TRANSCRIBE Jovani Gordon MD: VERIFY Event Display: Result: Authored Date: [id number] Chest Portable Reason: Other:; Start BIPAP, recent PTX; Clinical Question(s): Other:; Start BIPAP, recent PTX COMPARISON: 10/17/2021 FINDINGS: LINES AND TUBES: None. LUNGS AND PLEURA: Clear lungs. Normal pulmonary vascularity. No pleural effusion. No pneumothorax. HEART, MEDIASTINUM AND YANCY: Heart is normal in size. Normal upper mediastinal and hilar contour. BONES AND SOFT TISSUES: Subcutaneous emphysema noted in the right chest. This is similar to previous examination. IMPRESSION: No pneumothorax identified. No interval change from previous exam. WSN: [id number] Ordering Physician: Chiki Hobbs Dictated By: Jovani Gordon MD Dictated Date/Time: 10/17/21 11:29 p Reviewed By: Jovani Gordon MD Signed By: Jovani Gordon MD Signed Date/Time: 10/17/21 11:29 pm Transcribed By: CHING Transcribed Date/Time: 10/17/21 11:27 pmBHSPowerABIGAIL diaz S: TRANSCRIBE Pedro Rodriges MD: VERIFY Event Display: Result: Authored Date: [id number] AP and lateral chest x-ray dated October 16, 2021. Comparison films are from October 15 and October 14, 2021. HISTORY: Follow-up abnormal chest x-ray. FINDINGS: The cardiac silhouette is within normal limits for size. A right-sided chest tube is in place directed superiorly and posteriorly. This is not significantly changed. Opacity at the right lungbase is increased consistent with pleural effusion. Some increased interstitial markings are present bilaterally. These are stable. Subcutaneous emphysema in the right chest wall and upper abdomen is unchanged. Overall, the lungs are hyperinflated. Degenerative changes are noted in the spine. IMPRESSION: Developing opacity at the right lung base consistent with pleural effusion. Mild interstitial edema. Examination 16859. Thank you for allowing me to participate in the care of this patient. WSN: [id number] Ordering Physician: Hannah Sy Dictated By: Pedro Rodriges MD Dictated Date/Time: 10/16/21 10:52 a Reviewed By: Pedro Rodriges MD Signed By: Pedro Rodriges MD Signed Date/Time: 10/16/21 10:52 am Transcribed By: CHING Transcribed Date/Time: 10/16/21 10:52 Kendra , ABIGAIL S: TRANSCRIBE Cody Salvador MD: VERIFY Event Display: Result: Authored Date: [id number] . PROCEDURE: Chest 2 Views Frontal and Lat INDICATION: 66 years old female with RIGHT pleural catheter. COMPARISON: Multiple chest radiographs 2013 through October 16, 2021. Unenhanced chest CT October 12, 2021. FINDINGS: PA and lateral upright views of the chest obtained. Lines and tubes:Right-sided anterior pleural catheter entering in the mid RIGHT hemithorax ending posterolaterally in the RIGHT upper lobe again seen. Lungs and pleura: Mild to moderate hyperinflation of the lungs consistent with known inflation againseen. Mild linear atelectasis at the lung bases again noted. Possible small loculated RIGHT anteriorinferior pneumothorax. No pleural effusions.No evidence of pneumothorax. Heart, mediastinum and yancy: The cardiomediastinal silhouette and pulmonary vasculature are unremarkable. No cardiomegaly or pulmonary venous hypertension. Bones and soft tissues: Moderate subcutaneous emphysema again noted in the RIGHT chest wall anteriorly and laterally. Mild to moderate degenerative changes in the thoracic spine. Moderate osteopenia. IMPRESSION: 1. Possible small loculated anterior inferior RIGHT pneumothorax in the presence of a RIGHT pleural catheter and probably unchanged. 2. Evidence of emphysema and linear bibasilar atelectasis. 3. Significance of the tendons emphysema in the RIGHT chest wall Thank you for allowing me to participate in the care of this patient. WSN: [id number] Ordering Physician: Suresh Lin Dictated By: Cody Salvador MD Dictated Date/Time: 10/16/21 5:19 pm Reviewed By: Cody Salvador MD Signed By: Cody Salvador MD Signed Date/Time: 10/16/21 5:19 pm Transcribed By: CHING Transcribed Date/Time: 10/16/21 5:19 pmBHSPzionscABIGAIL gutierrez S: TRANSCRIIdris Obando MD: VERIFY Event Display: Result: Authored Date: [id number] Chest 2 Views Frontal and Lat Reason: PTX; follow-up. COMPARISON: 10/14/2021. FINDINGS: LINES AND TUBES: Right pigtail pleural tube remains in place. LUNGS AND PLEURA: No recurrent pneumothorax is seen. Trace right sided pleural effusion. No pneumothorax. HEART, MEDIASTINUM AND YANCY: Heart is normal in size. Normal upper mediastinal and hilar contour. BONES AND SOFT TISSUES: No acute abnormality. Extensive subcutaneous emphysema along the right lateral chest wall. IMPRESSION: Unchanged. WSN: [id number] Ordering Physician: Kerrie Berrios Dictated By: Idris Mckeon MD Dictated Date/Time: 10/15/21 12:29 p Reviewed By: Idris Mckeon MD Signed By: Idris Mckeon MD Signed Date/Time: 10/15/21 12:29 pm Transcribed By: CHING Transcribed Date/Time: 10/15/21 12:28 pmBHSPowerscABIGAIL gutierrez S: TRANSCRIBE Marii Birmingham MD: VERIFY Event Display: Result: Authored Date: [id number] AP portable chest, INDICATION: Reason: Shortness of Breath; Clinical Question(s): Pneumothorax COMPARISON: Plain film of the chest from 6:32 AM today. FINDINGS: LINES AND TUBES: There is a right side pigtail catheter, unchanged. LUNGS AND PLEURA AND MEDIASTINUM: There is right chest wall emphysema. There is no pneumothorax. Trace right pleural effusion. Mild left basilar atelectasis. Normal size heart. IMPRESSION: No pneumothorax. Mild left basilar atelectasis WSN: [id number] Ordering Physician: Srinivas Kumar Dictated By: Marii Birmingham MD Dictated Date/Time: 10/15/21 8:07 pm Reviewed By: Marii Birmingham MD Signed By: Marii Birmingham MD Signed Date/Time: 10/15/21 8:07 pm Transcribed By: CHING Transcribed Date/Time: 10/15/21 8:06 pmBHSPowerscrirenea , CIS S: TRANSCRIBE Bg Prajapati MD: VERIFY Event Display: Result: Authored Date: [id number] Chest 2 Views Frontal and Lat INDICATION: F U PTX / COMPARISON: 10/13/2021 FINDINGS: Patient is rotated towards the right LINES AND TUBES: Apically directed right chest tube. LUNGS AND PLEURA: Hazy right perihilar and right basilar airspace opacity, likely atelectasis. No definite pleural effusion. Blunting of the right lateral costophrenic angle on the AP view is likely due to rotation, with no effusion seen on the lateral view posteriorly. No pneumothorax identified, though the right apex is partially obscured by the patient's chin. HEART, MEDIASTINUM AND YANCY: Unchanged. BONES AND SOFT TISSUES: Persistent right chest wall subcutaneous emphysema. IMPRESSION: No pneumothorax identified, though the right apex is partially obscured by the patient's chin. WSN: [id number] Ordering Physician: Kerrie Berrios Dictated By: Bg Prajapati MD Dictated Date/Time: 10/14/21 9:45 am Reviewed By: Bg Prajapati MD Signed By: Bg Prajapati MD Signed Date/Time: 10/14/21 9:45 am Transcribed By: CHING Transcribed Date/Time: 10/14/21 9:42 [facility] TRANSCRIBE William Jenkins MD: VERIFY Nani Galdamez MD: SIGN Event Display: Result: Authored Date: [id number] Chest 2 Views Frontal and Lat Reason: Follow-up of pneumothorax COMPARISON: Chest x-ray and CT chest 10/12/2021, and multiple prior chest x-ray FINDINGS: Right pleural drain is stable. Soft tissue gas in the right chest wall and neck is unchanged. Small right pneumothorax with approximately 1 cm maximal right apical pleural separation. IMPRESSION: No change in the right pleural drain. Small right pneumothorax. Noted on 10/12/[address] I have personally reviewed the images and I agree with this report. WSN: [id number] Ordering Physician: Kerrie Berrios Dictated By: Nani Galdamez MD Dictated Date/Time: 10/13/21 10:01 a Reviewed By: William Jenkins MD Signed By: William Jenkins MD Signed Date/Time: 10/13/21 10:06 am Transcribed By: CHING Transcribed Date/Time: 10/13/21 9:52 Kendra , CIS S: TRANSCBg Juárez MD: VERIFY Event Display: Result: Authored Date: [id number] Chest 2 Views Frontal and Lat INDICATION: PTX; Clinical Question(s): F U PTX / COMPARISON: 10/11/2021 FINDINGS: LINES AND TUBES: Right pleural pigtail catheter placement LUNGS AND PLEURA: Right-sided pneumothorax no longer seen, though a small pneumothorax could be obscured by some cutaneous emphysema. Minimal bibasilar atelectasis. No significant pleural effusion. HEART, MEDIASTINUM AND YANCY: Unchanged. BONES AND SOFT TISSUES: Extensive subcutaneous emphysema, mostly in the right chest wall. IMPRESSION: No residual pneumothorax is identified, but there is new extensive subcutaneous emphysema which could obscure a small pneumothorax. WSN: [id number] Ordering Physician: Leticia Carias Dictated By: Bg Prajapati MD Dictated Date/Time: 10/12/21 9:22 am Reviewed By: Bg Prajapati MD Signed By: Bg Prajapati MD Signed Date/Time: 10/12/21 9:22 am Transcribed By: CHING Transcribed Date/Time: 10/12/21 9:19 ClaraPonavarro , CIS S: TRANSCRIJovani Thomas MD: VERIFY Event Display: Result: Authored Date: [id number] Chest 2 Views Frontal and Lat Reason: Tube Placement; Clinical Question(s): Pneumothorax COMPARISON: 10/11/2021 FINDINGS: LINES AND TUBES: Right pigtail catheter position unchanged. LUNGS AND PLEURA: Right-sided pneumothorax improved compared to previous examination, though there is persistent rightapical pneumothorax. No pleural effusion. HEART, MEDIASTINUM AND YANCY: Heart is normal in size. Normal upper mediastinal and hilar contour. BONES AND SOFT TISSUES: No acute abnormality. IMPRESSION: Improved right-sided pneumothorax compared to previous examination with residual small right apical pneumothorax. Right-sided pigtail catheter position unchanged. Otherwise unremarkable study. WSN: [id number] Ordering Physician: Hannah Sy Dictated By: Jovani Gordon MD Dictated Date/Time: 10/11/21 5:18 pm Reviewed By: Jovani Gordon MD Signed By: Jovani Gordon MD Signed Date/Time: 10/11/21 5:18 pm Transcribed By: CHING Transcribed Date/Time: 10/11/21 5:17 pm Care Team PersonnelName: Mickey Guaman MD Address: [address] [place] [id number]
[2021-11-19 02:14] LABS: Troponin-I High Sensitivity < 3.5 ng/L (<3.5-17.0)
[2021-11-19 02:16] LABS: COVID-19 Test Negative (Negative)
[2021-11-19] MEDS: methylPREDNISolone Sod Succ 125 MG/2 ML VIAL IVPUSH (02:19)
[2021-11-19] MEDS: Meclizine HCl 25 MG TABLET PO (02:19)
[2021-11-19 02:35] LABS: Anion Gap 13 (12-20); Blood Urea Nitrogen 16 mg/dL (9-16); Calcium 9.6 mg/dL (8.4-10.2); Carbon Dioxide 36 mmol/L (22-29); Chloride 98 mmol/L (96-108); Estimated Glomerular Filt Rate > 60; Glucose Random 105 mg/dL (60-115); Potassium 3.9 mmol/L (3.3-5.1); Sodium 143 mmol/L (135-145)
[2021-11-19] MEDS: LORazepam 1 MG TABLET 2 MG PO (03:48)
--- NOTE | 2021-11-19 05:00 | PC.NURSE ---
call out to [facility] @[phone] regarding transport back home. eta of 0800 was given
[2021-11-19 06:00] VITALS: BP 130/74; PULSE 70; RESP 22; O2SAT 95
== END 2021-11-19 10:34 | disposition home or self-care (01) ==
PROVIDERS: Emergency Provider Internal Medicine
DX: J44.1 Chronic obstructive pulmonary disease with (acute) exacerbation (principal); H81.13 Benign paroxysmal vertigo, bilateral; R06.02 Shortness of breath; F41.1 Generalized anxiety disorder; F43.0 Acute stress reaction; Z20.822 Contact with and (suspected) exposure to COVID-19; Z79.899 Other long term (current) drug therapy
CPT/HCPCS: 71045; 80048; 84484; 85025; 87635; 93005; 94640; 99284; J2930

== ENCOUNTER 2021-12-02 02:23 | Emergency (ER) | payer MEDICARE, SELFPAY ==
--- NOTE | ~2021-12-02 | XR_ITS ---
EXAMINATION: XR CHEST CLINICAL INFORMATION: Short of breath COMPARISON: 11/19/2021 TECHNIQUE: 2 views of the chest were obtained. FINDINGS: The lungs are well expanded. Increased nodular appearance of the opacity at the right midlung. Hazy opacities at the lung bases with mild interstitial prominence. No pneumothorax. The cardiomediastinal silhouette is normal in size. XR/XR chest 2V IMPRESSION: 1. Increased nodular opacity at the right midlung. This could be infectious or inflammatory. 2. Hazy basilar opacities with interstitial prominence could be associated with mild edema versus a small airways process such as atypical/viral infection.
[2021-12-02 02:31] VITALS: BP 149/55; PULSE 91; RESP 28; TEMP 37; O2SAT 99; BMI 28.8
--- NOTE | 2021-12-02 02:34 | PC.NURSE ---
Patient arrives via EMS from home endorsing 8 hours of worsening SOB. Hx COPD on 5L NC baseline. Per EMS, her O2 saturations on scene were 90% on 5L so they gave her one combivent treatment and left her on 5L. Patient states she has a history of anxiety and states I'm due for 2mg lorazepam on her entry into ED room 22. She is alert, oriented x4. 100% on 5L NC currently. She is NOT vaccinated for COVID.
[2021-12-02 02:44] LABS: Basophils Absolute Auto 0.1 X10*3/uL (0.0-0.2); Basophils Percent Auto 0.5 % (0-2); Eosinophils Absolute Auto 0.1 X10*3/uL (0.0-0.4); Hematocrit 34.7 % (37.0-47.0); Hemoglobin 10.7 g/dl (12.0-16.0); Imm Gran Abs Auto 0.02 X10*3/uL (0.00-0.03); Imm Gran Pct Auto 0.2 % (0.0-0.4); Lymphocytes Absolute Auto 2.4 X10*3/uL (1.2-4.9); Lymphocytes Percent Auto 23.5 % (20-40); MANUAL DIFF FLAG NO; Mean Corpuscular HGB Conc 30.8 g/dl (31.0-35.0); Mean Corpuscular Hemoglobin 27.2 pg (27.0-33.0); Mean Corpuscular Volume 88.3 fL (80.0-98.0); Mean Platelet Volume 9.4 fL (9.4-12.3); Monocytes Absolute Auto 0.9 X10*3/uL (0.1-1.2); Monocytes Percent Auto 8.6 % (2-11); Neutrophils Absolute Auto 6.6 x10*3/uL (2.0-8.3); Neutrophils Percent Auto 66.2 % (45-73); Platelet Count 317 X10*3/uL (160-400); Red Blood Count 3.93 X10*6/uL (4.20-5.50); Red Cell Distribution Width 14.1 % (11.0-16.0)
--- NOTE | 2021-12-02 02:51 | ED.SOB ---
HPI - SOB/Dyspnea General Chief Complaint: Dyspnea Stated Complaint: sob Time Seen by Provider: 12/02/21 02:45 Source: patient Mode of arrival: EMS Limitations: no limitations History of Present Illness HPI Narrative: patient with severe COPD oxygen dependent and doing 5 L by nasal cannula at home ran out of her Ativan tablets feeling anxious and increased shortness of breath for last 8 hours patient been here multiple times for same denies any chest pain no palpitation has chronic dry cough Related Data Home Medications Medication Instructions Recorded Confirmed albuterol sulfate 2.5 mg/3 mL 1 vial inhalation 6XD 10/04/20 09/03/21 (0.083 %) solution for nebulization zalcdeuoau-irorxxlnpkyvi-abyvoqgn 1 - 2 tab PO Q12H PRN Headache 10/04/20 09/03/21 50 mg-325 mg-40 mg tablet diltiazem HCl 360 mg capsule,24 1 cap PO DAILY 07/08/21 09/03/21 hr,extended release lorazepam 2 mg tablet 1 tab PO Q6H PRN anxiety 07/08/21 09/03/21 tiotropium bromide 18 mcg capsule 1 cap inhalation DAILY 08/27/21 09/03/21 with inhalation device (Spiriva with HandiHaler) ipratropium bromide 0.02 % 2.5 ml inhalation Q6H PRN wheezing 09/25/21 solution for inhalation Previous Rx's Medication Instructions Recorded meclizine 25 mg tablet 25 mg PO TID PRN dizziness #20 tabs 09/25/21 ttyabtkv-ppjjng-UO-thonzonm 3.3 4 drp otic (ear) left QID #10 mL 09/25/21 mg-3 mg-10 mg-0.5 mg/mL ear drops,susp (Cortisporin-TC) doxycycline hyclate 100 mg tablet 100 mg PO BID #20 tabs 11/19/21 meclizine 25 mg tablet 25 mg PO TID PRN dizziness #14 tabs 11/19/21 benzonatate 200 mg capsule 200 mg PO TID PRN cough #30 caps 12/02/21 doxycycline hyclate 100 mg tablet 100 mg PO BID #20 tabs 12/02/21 prednisone 20 mg tablet 40 mg PO DAILY #10 tabs 12/02/21 Allergies Allergy/AdvReac Type Severity Reaction Status Date / Time morphine [MORPHINE] Allergy Severe HIVES, Verified 11/19/21 01:59 high temp, nausea tramadol [TRAMADOL] Allergy Severe SWEATING, Verified 11/19/21 01:59 VOMITING, vomiting amoxicillin [From AUGMENTIN] AdvReac Severe CONSTIPATIO Verified 11/19/21 01:59 N clavulanic acid AdvReac Severe CONSTIPATIO Verified 11/19/21 01:59 [From AUGMENTIN] N codeine [CODEINE] AdvReac Severe NAUSEA Verified 11/19/21 01:59 levofloxacin [From LEVAQUIN] AdvReac Severe CONSTIPATIO Verified 11/19/21 01:59 N Sulfa(Sulfonamide Allergy Unknown Unknown Uncoded 10/04/20 22:39 Antibiotics) Review of Systems Review of Systems: Yes all other systems are reviewed and are negative PMFSH Past Medical History Medical History Anxiety Asthma Bronchitis Chronic respiratory failure COPD (chronic obstructive pulmonary disease) Diverticulitis Dizziness Emphysema lung Hypertension Otitis media Vertigo Surgical History History of breast surgery History of laparotomy Family History Family History Other No family history of coronary artery disease Social History Social History Household Members: Spouse [facility]: [facility] Do you presently have visiting nurse or other home services: No Alcohol intake: never Patient Tobacco Use Status: Never used Tobacco Advance Directives: No Advance Directives Information Provided: No service: No Current occupational status: disabled Physical Exam Vital Signs: Vital Signs: Last Vital Signs Temp 98.6 F 12/02/21 02:31 Pulse 96 12/02/21 03:11 Resp 18 12/02/21 03:11 BP 149/55 H 12/02/21 02:31 Pulse Ox 99 12/02/21 02:31 O2 Del Method 12/02/21 02:31 Oxygen Flow Rate 5 12/02/21 02:31 BMI result Body Mass Index 28.8 Appearance: Alert. Oriented X3. mild respiratory distress on oxygen Eyes: PERRLA, No Nystagmus ENT: Pharynx normal. Oral Mucosa moist Neck: Normal inspection. Neck supple. CVS: Normal heart rate and rhythm. Pulses normal. Respiratory: mild respiratory distress. decreased air entry bilateral, prolonged expiration no crackles Abdomen: Soft and nontender. Bowel sounds are present, no mass palpable, no CVA tenderness Skin: Skin warm and dry. Normal skin color. Normal skin turgor. Extremities: No lower extremity edema. No calf tenderness Neuro: Oriented X 3. MDM - SOB/Dyspnea MDM Narrative Medical decision making narrative: patient has COPD clinically more anxious and stable vitals saturating 99% on 5 L oxygen. Will discharge patient home on prednisone and doxycycline Differential Diagnosis Differential diagnosis: Likely acute exacerbation of chronic obstructive airways disease, congestive heart failure, pneumonia and asthma with exacerbation Lab Data Result diagrams: 12/02/21 02:35 12/02/21 02:35 Labs: Lab Results 12/02/21 12/02/21 12/02/21 Range/Units 02:35 02:35 02:43 WBC 10.0 (4.8-10.8) X10*3/uL RBC 3.93 L (4.20-5.50) X10*6/uL Hgb 10.7 L (12.0-16.0) g/dl Hct 34.7 L (37.0-47.0) % MCV 88.3 (80.0-98.0) fL MCH 27.2 (27.0-33.0) pg MCHC 30.8 L (31.0-35.0) g/dl RDW 14.1 (11.0-16.0) % Plt Count 317 (160-400) X10*3/uL MPV 9.4 (9.4-12.3) fL Immature Gran % (Auto) 0.2 (0.0-0.4) % Neut % (Auto) 66.2 (45-73) % Lymph % (Auto) 23.5 (20-40) % Brooke % (Auto) 8.6 (2-11) % Eos % (Auto) 1.0 (0-4) % Baso % (Auto) 0.5 (0-2) % Lymph # (Auto) 2.4 (1.2-4.9) X10*3/uL Brooke # (Auto) 0.9 (0.1-1.2) X10*3/uL Eos # (Auto) 0.1 (0.0-0.4) X10*3/uL Baso # (Auto) 0.1 (0.0-0.2) X10*3/uL Abs Immat Gran (auto) 0.02 (0.00-0.03) X10*3/uL Absolute Neuts (auto) 6.6 (2.0-8.3) x10*3/uL Absolute Nucleated RBC 0.000 (0.0-0.012) X10*3/uL Nucleated RBC % (auto) 0.0 (0.0-0.2) /100WBC Sodium 142 (135-145) mmol/L Potassium 3.2 L (3.3-5.1) mmol/L Chloride 96 (96-108) mmol/L Carbon Dioxide 35 H (22-29) mmol/L Anion Gap 14 (12-20) BUN 17 H (9-16) mg/dL Creatinine 0.60 (0.5-1.4) mg/dL Estim Creat Clear Calc 73.1 Estimated GFR > 60 Random Glucose 121 H (60-115) mg/dL Calcium 9.9 (8.4-10.2) mg/dL Total Bilirubin < 0.2 (0.0-1.0) mg/dL AST 16 (5-31) U/L ALT 8 (0-31) U/L Alkaline Phosphatase 81 (39-117) U/L Total Protein 7.4 (6.5-8.0) g/dL Albumin 4.3 (3.5-5.0) g/dL Influenza Type A (PCR) NEGATIVE (Negative) Influenza Type B (PCR) NEGATIVE (Negative) RSV RNA Qual (PCR) NEGATIVE (Negative) SARS-CoV-2 RNA (RT-PCR) NEGATIVE (Negative) Discharge Plan Discharge Clinical Impression: Chronic asthmatic bronchitis with acute exacerbation Patient Disposition: Home, Self-Care Instructions: Chronic Bronchitis (ED) Additional Instructions: continue nebulizing treatment at home antibiotic as advised continue prednisone 40 mg daily for 5 days follow-up with your PCP if not better Prescriptions: New benzonatate 200 mg capsule 200 mg PO TID PRN (Reason: cough) Qty: 30 0RF prednisone 20 mg tablet 40 mg PO DAILY Qty: 10 0RF doxycycline hyclate 100 mg tablet 100 mg PO BID Qty: 20 0RF No Action albuterol sulfate 2.5 mg /3 mL (0.083 %) solution for nebulization 1 vial inhalation 6XD cavapjlctt-qmilepmjwkavy-lkpg 50-325-40 mg tablet 1 - 2 tab PO Q12H PRN (Reason: Headache) Cortisporin-TC 3.3-3-10-0.5 mg/mL drops,suspension 4 drp otic (ear) left QID Qty: 10 0RF meclizine 25 mg tablet 25 mg PO TID PRN (Reason: dizziness) Qty: 20 0RF ipratropium bromide 0.02 % solution 2.5 ml inhalation Q6H PRN (Reason: wheezing) meclizine 25 mg tablet 25 mg PO TID PRN (Reason: dizziness) Qty: 14 0RF doxycycline hyclate 100 mg tablet 100 mg PO BID Qty: 20 0RF diltiazem HCl 360 mg capsule,extended release 24 hr 1 cap PO DAILY lorazepam 2 mg tablet 1 tab PO Q6H PRN (Reason: anxiety) Spiriva with HandiHaler 18 mcg capsule, w/inhalation device 1 cap inhalation DAILY Interventions: ED Discharge Assessment Last Done: 12/02/21 04:17
[2021-12-02] MEDS: dexAMETHasone 2 MG TABLET 10 MG PO (03:04)
[2021-12-02] MEDS: LORazepam 1 MG TABLET 2 MG PO (03:04)
[2021-12-02] MEDS: guaiFEN/Codeine SF 200/20/10ML 10 ML LIQUID PO (03:05)
[2021-12-02] MEDS: Albuterol Sulfate 2.5 MG, Albuterol/Iprat 2.5/0.5MG 3 ML 3 ML INHALE (03:08)
[2021-12-02 03:11] VITALS: PULSE 96; RESP 18; O2SAT 96
[2021-12-02 03:18] LABS: Alanine Aminotransferase 8 U/L (0-31); Albumin Level 4.3 g/dL (3.5-5.0); Alkaline Phosphatase 81 U/L (39-117); Anion Gap 14 (12-20); Aspartate Amino Transferase 16 U/L (5-31); Bilirubin Total < 0.2 mg/dL (0.0-1.0); Blood Urea Nitrogen 17 mg/dL (9-16); Calcium 9.9 mg/dL (8.4-10.2); Carbon Dioxide 35 mmol/L (22-29); Chloride 96 mmol/L (96-108); Creatinine Clr Calc Pharmacy 73.1; Estimated Glomerular Filt Rate > 60; Glucose Random 121 mg/dL (60-115); Potassium 3.2 mmol/L (3.3-5.1); Sodium 142 mmol/L (135-145); Total Protein 7.4 g/dL (6.5-8.0)
[2021-12-02 03:24] LABS: Influenza A PCR NEGATIVE (Negative); Influenza B PCR NEGATIVE (Negative); Resp Syncy Virus RNA Qual PCR NEGATIVE (Negative); SARS COV2 PCR INHOUSE NEGATIVE (Negative)
[2021-12-02] MEDS: HYDROmorphone HCl 2 MG TABLET PO (04:13)
--- NOTE | 2021-12-02 05:44 | PC.NURSE ---
still awaiting ambulance to take patient home (estimated time 9am). she is provided with a sandwich and snacks per request.
[2021-12-02 06:15] VITALS: O2SAT 94
[2021-12-02 06:40] VITALS: O2SAT 94
--- NOTE | 2021-12-02 08:48 | PC.NURSE ---
Breakfast tray provided. Awaits ambulance ride home. Offers no complaints at this time. Continues on home 02 at 5lpm
== END 2021-12-02 09:32 | disposition home or self-care (01) ==
PROVIDERS: Emergency Provider Internal Medicine
DX: J45.41 Moderate persistent asthma with (acute) exacerbation (principal); J44.1 Chronic obstructive pulmonary disease with (acute) exacerbation; R06.02 Shortness of breath; J44.9 Chronic obstructive pulmonary disease, unspecified; Z20.822 Contact with and (suspected) exposure to COVID-19; Z99.81 Dependence on supplemental oxygen; Z79.899 Other long term (current) drug therapy
CPT/HCPCS: 0241U; 36415; 71046; 80053; 85025; 94640; 99284; 99285; J8540

== ENCOUNTER 2021-12-22 16:50 | Inpatient (IN) | payer MEDICARE, SELFPAY ==
--- NOTE | ~2021-12-22 | CT_ITS ---
EXAMINATION: CT ANGIOGRAM OF THE CHEST WITH AND WITHOUT CONTRAST (CT PULMONARY ANGIOGRAM FOR PE) CLINICAL INFORMATION: Lung mass with question of pulmonary embolus COMPARISON: Chest radiograph 12/22/2021 TECHNIQUE: Prior to contrast administration, noncontrast localization images were obtained. Subsequently, multidetector volumetric imaging was performed from the thoracic inlet to below the diaphragms following the administration of 65 mL Omnipaque 350 intravenous contrast. No contrast reaction reported Sagittal, coronal, and MIP oblique sagittal reformatted images were obtained on the CT workstation, uploaded to PACS, and reviewed. This CT examination was performed using dose optimization techniques as appropriate, variously including the following: *Automated exposure control *Adjustment of mA and/or kV according to patient size (this includes techniques or standardized protocols for targeted exams where dose is matched to indication/reason for exam; i.e. extremities or head) *Use of iterative reconstruction technique Total exam dose-length product 294 mGy-cm FINDINGS: QUALITY OF STUDY/CONTRAST BOLUS: Satisfactory. PULMONARY ARTERIES: No central or segmental pulmonary emboli. THORACIC AORTA: No aneurysm or dissection. LUNG: There are changes of COPD. There is a loculated fluid collection in the right middle lobe in the minor fissure measuring 2.2 x 2.0 x 3.4 cm. This accounts for the opacity seen on the chest radiograph. There is some adjacent atelectasis. A worrisome lung mass is not seen. PLEURA: No pleural effusion (aside from the loculated fluid described above) or pneumothorax. MEDIASTINUM: Normal heart size. No pericardial effusion. No hilar or mediastinal lymphadenopathy. No evidence of septal bowing or right heart strain. CHEST WALL/AXILLA: No axillary or internal mammary lymphadenopathy. OSSEOUS STRUCTURES: No acute or suspicious osseous abnormality. UPPER ABDOMEN: There is some nodular thickening of the adrenal glands, left greater than right. No reflux of contrast into the hepatic veins to suggest elevated right heart pressures. CT/CT angio chest PE protocol IMPRESSION: 1. No evidence of pulmonary emboli. 2. Loculated fluid collection in the minor fissure on the right accounts for the opacity seen on the chest radiograph. 3. Underlying COPD VTE: negative
--- NOTE | ~2021-12-22 | XR_ITS ---
EXAMINATION: XR CHEST CLINICAL INFORMATION: Shortness of breath COMPARISON: Chest radiograph 12/02/[address] abdomen pelvis 07/08/2021 TECHNIQUE: Frontal view of the chest was obtained. FINDINGS: The heart and pulmonary vessels appear normal. Again seen are findings of COPD with hyperinflation. The nodular opacity in the right mid lung persists measuring about 2.5 cm. Malignancy must be considered in the differential diagnosis. Bibasilar atelectasis is seen. Prominent left epicardial fat pad again noted. XR/XR chest 1V IMPRESSION: 1. No acute intrathoracic disease. 2. Nodular opacity right mid lung. Malignancy must be considered in the differential diagnosis. Contrast-enhanced CT scan of the chest may be useful for further evaluation
[2021-12-22 17:05] VITALS: BP 178/100; BP 200/79; PULSE 110; PULSE 124; RESP 24; O2SAT 94; O2SAT 97; BMI 27.8
[2021-12-22 17:16] VITALS: BP 200/79; PULSE 118; RESP 24; TEMP 37.2; O2SAT 96
--- NOTE | 2021-12-22 17:31 | ED_ITS ---
HPI - SOB/Dyspnea General Chief Complaint: Dyspnea Stated Complaint: diff br hx copd Time Seen by Provider: 12/22/21 17:29 Source: patient and EMS Mode of arrival: EMS Limitations: no limitations History of Present Illness HPI Narrative: Patient is 66 years old with history of COPD on baseline 5L oxygen 24/7, anxi ety, hypertension, frequent acute on chronic respiratory failure last admission was 08/27 when she had COVID comes here for increased shortness of breath with chest tightness started earlier today patient also wheezing coughing headache dizziness Related Data Home Medications Medication Instructions Recorded Confirmed albuterol sulfate 2.5 mg/3 mL 1 vial inhalation 6XD 10/04/20 12/22/21 (0.083 %) solution for nebulization [id number] 1 tab PO Q12H PRN Headache 10/04/20 12/22/21 50 mg-325 mg-40 mg tablet diltiazem HCl 360 mg capsule,24 1 cap PO DAILY 07/08/21 12/22/21 hr,extended release lorazepam 2 mg tablet 1 tab PO Q6H PRN anxiety 07/08/21 12/22/21 ipratropium bromide 0.02 % 2.5 ml inhalation Q6H PRN wheezing 09/25/21 12/22/21 solution for inhalation fluticasone 250 mcg-salmeterol 50 1 puff inhalation BID 12/22/21 12/22/21 mcg/dose blistr powdr for inhalation (Romina Inhub) Previous Rx's Medication Instructions Recorded meclizine 25 mg tablet 25 mg PO TID PRN dizziness #14 tabs 11/19/21 Allergies Allergy/AdvReac Type Severity Reaction Status Date / Time morphine [MORPHINE] Allergy Severe HIVES, Verified 11/19/21 01:59 high temp, nausea tramadol [TRAMADOL] Allergy Severe SWEATING, Verified 11/19/21 01:59 VOMITING, vomiting amoxicillin [From AUGMENTIN] AdvReac Severe CONSTIPATIO Verified 11/19/21 01:59 N clavulanic acid AdvReac Severe CONSTIPATIO Verified 11/19/21 01:59 [From AUGMENTIN] N codeine [CODEINE] AdvReac Severe NAUSEA Verified 11/19/21 01:59 levofloxacin [From LEVAQUIN] AdvReac Severe CONSTIPATIO Verified 11/19/21 01:59 N Sulfa(Sulfonamide Allergy Unknown Unknown Uncoded 10/04/20 22:39 Antibiotics) Review of Systems Review of Systems: Yes all other systems are reviewed and are negative [facility] Past Medical History Medical History Anxiety Asthma Bronchitis Chronic respiratory failure COPD (chronic obstructive pulmonary disease) Diverticulitis Dizziness Emphysema lung Hypertension Otitis media Vertigo Surgical History History of breast surgery History of laparotomy Family History Family History Other No family history of coronary artery disease Social History Social History Household Members: Spouse Housing: Other Housing Other:: motel. Do you presently have visiting nurse or other home services: No Alcohol intake: never Patient Tobacco Use Status: Never used Tobacco Smoked in Last 30 Days: No Use of substances other than those prescribed or required for medical reasons: No Advance Directives: Yes Advance Directives on File: Yes Advance Directives Date on File: 07/09/21 service: No Current occupational status: disabled Physical Exam Vital Signs: Vital Signs: Last Vital Signs Temp 98.3 F 12/22/21 23:28 Pulse 117 H 12/22/21 23:28 Resp 20 12/22/21 23:28 BP 186/89 H 12/22/21 23:28 Pulse Ox 96 12/22/21 23:28 O2 Del Method 12/22/21 23:28 O2 Flow Rate 3 12/22/21 23:28 Oxygen Flow Rate 5 12/22/21 17:05 BMI result Body Mass Index 27.8 Appearance: Alert. Oriented X3. In moderate respiratory distress Eyes: PERRLA, No Nystagmus ENT: Pharynx normal. Oral Mucosa moist Neck: Normal inspection. Neck supple. CVS: Normal heart rate and rhythm. Pulses normal. Respiratory: No respiratory distress. Equal air entry bilateral, B/Ldecreased entry with wheezing Abdomen: Soft and nontender. Bowel sounds are present, no mass palpable, no CVA tenderness Skin: Skin warm and dry. Normal skin color. Normal skin turgor. Extremities: No lower extremity edema. No calf tenderness Neuro: Oriented X 3. No motor deficit. No sensory deficit.No cerebellar signs , cranial nerves II-XII intact Medications Administered Discontinued Medications Generic Name Dose Route Start Last Admin Trade Name Richelle PRN Reason Stop Dose Admin Acetaminophen/Butalbital/Caffeine 2 tab 12/23/21 00:29 12/23/21 00:35 Butalb/Acetamin/Caff 50/325/40 Tablet PO 12/23/21 00:30 2 tab ONCE ONE Administration Albuterol Sulfate 2.5 mg/ 5 mg 12/22/21 23:13 12/22/21 23:33 Albuterol Sulfate 2.5 mg INHALE 12/22/21 23:14 Not Given ONCE ONE Albuterol Sulfate 2.5 mg/ 0 mg 12/22/21 17:41 12/22/21 18:10 Albuterol/Ipratropium 3 ml INHALE 12/22/21 17:42 5 each ONCE ONE Administration Sodium Chloride 1,000 mls @ 999 mls/hr 12/22/21 17:41 12/22/21 21:12 Ns IV 12/22/21 18:41 Infused .Q1H1M ONE Infusion Sodium Chloride 1,000 mls @ 999 mls/hr 12/22/21 23:14 12/23/21 00:04 Ns IV 12/23/21 00:14 999 mls/hr .Q1H1M ONE Administration Iohexol 65 ml 12/22/21 23:58 12/22/21 23:58 Iohexol 350 Mg/Ml 100 Ml Infus..Btl IV 12/22/21 23:59 65 ml ONCE ONE Administration Lorazepam 2 mg 12/22/21 17:41 12/22/21 18:17 Lorazepam 1 Mg Tablet PO 12/22/21 17:42 2 mg ONCE ONE Administration Methylprednisolone Sodium Succinate 125 mg 12/22/21 17:41 12/22/21 18:17 Methylprednisolone Sod Succ 125 Mg/2 Ml Vial IVPUSH 12/22/21 17:42 125 mg ONCE ONE Administration MDM - SOB/Dyspnea MDM Narrative Medical decision making narrative: Patient with severe COPD oxygen dependent with increased shortness of breath and wheezing status post COVID-19 08/27 patient requiring multiple doses of nebulizing treatment IV steroid will admit for COPD exacerbation venous gases normal pCO2, chest x-ray showed noted opacities in right middle to CTA chest to rule out PE/malignancy/pneumonia CT chest showed loculated inter lober fluid collection patient be admitted for chronic lung disease with hypoxia no signs of infection Differential Diagnosis Differential diagnosis: Likely acute exacerbation of chronic obstructive airways disease, congestive heart failure, pneumonia and pulmonary embolism Medical Records Attestation: I reviewed the patient's medical records. Lab Data Attestation: I reviewed the patient's lab results. Result diagrams: 12/22/21 18:47 Labs: Lab Results 12/22/21 12/22/21 12/22/21 Range/Units 18:47 18:47 18:47 WBC 8.2 (4.8-10.8) X10*3/uL RBC 4.77 D (4.20-5.50) X10*6/uL Hgb 12.6 (12.0-16.0) g/dl Hct 41.3 (37.0-47.0) % MCV 86.6 (80.0-98.0) fL MCH 26.4 L (27.0-33.0) pg MCHC 30.5 L (31.0-35.0) g/dl RDW 13.9 (11.0-16.0) % Plt Count 330 (160-400) X10*3/uL MPV 9.4 (9.4-12.3) fL Immature Gran % (Auto) 0.9 H (0.0-0.4) % Neut % (Auto) 74.5 H (45-73) % Lymph % (Auto) 15.8 L (20-40) % [place] % (Auto) 8.0 (2-11) % Eos % (Auto) 0.4 (0-4) % Baso % (Auto) 0.4 (0-2) % Lymph # (Auto) 1.3 (1.2-4.9) X10*3/uL [place] # (Auto) 0.7 (0.1-1.2) X10*3/uL Eos # (Auto) 0.0 (0.0-0.4) X10*3/uL Baso # (Auto) 0.0 (0.0-0.2) X10*3/uL Abs Immat Gran (auto) 0.07 H (0.00-0.03) X10*3/uL Absolute Neuts (auto) 6.1 (2.0-8.3) x10*3/uL Absolute Nucleated RBC 0.000 (0.0-0.012) X10*3/uL Nucleated RBC % (auto) 0.0 (0.0-0.2) /100WBC PT 10.9 (10.0-13.1) SEC INR 1.0 (0.9-1.1) D-Dimer High Sensitivty 246 NG/ML VBG pH (7.32-7.43) VBG pCO2 mmHg VBG pO2 mmHg VBG HCO3 (22-26) mmol/L VBG O2 Saturation % VBG Base Excess mmol/L Troponin I High Sens < 3.5 (<3.5-17.0) ng/L B-Natriuretic Peptide (<100) pg/mL Urine Color Urine Appearance Urine pH (5.0-9.0) Ur Specific [place] (1.005-1.025) Urine Protein (Neg-Trace) mg/dL Urine Glucose (UA) (Negative) mg/dL Urine Ketones (Negative) mg/dL Urine Blood (Negative) Urine Nitrite (Negative) Ur Leukocyte Esterase (Negative) COVID-19 (SEAN) (Negative) COVID-19 Clin Com 12/22/21 12/22/21 12/22/21 Range/Units 18:47 21:09 23:25 WBC (4.8-10.8) X10*3/uL RBC (4.20-5.50) X10*6/uL Hgb (12.0-16.0) g/dl Hct (37.0-47.0) % MCV (80.0-98.0) fL MCH (27.0-33.0) pg MCHC (31.0-35.0) g/dl RDW (11.0-16.0) % Plt Count (160-400) X10*3/uL MPV (9.4-12.3) fL Immature Gran % (Auto) (0.0-0.4) % Neut % (Auto) (45-73) % Lymph % (Auto) (20-40) % [place] % (Auto) (2-11) % Eos % (Auto) (0-4) % Baso % (Auto) (0-2) % Lymph # (Auto) (1.2-4.9) X10*3/uL [place] # (Auto) (0.1-1.2) X10*3/uL Eos # (Auto) (0.0-0.4) X10*3/uL Baso # (Auto) (0.0-0.2) X10*3/uL Abs Immat Gran (auto) (0.00-0.03) X10*3/uL Absolute Neuts (auto) (2.0-8.3) x10*3/uL Absolute Nucleated RBC (0.0-0.012) X10*3/uL Nucleated RBC % (auto) (0.0-0.2) /100WBC PT (10.0-13.1) SEC INR (0.9-1.1) D-Dimer High Sensitivty NG/ML VBG pH (7.32-7.43) VBG pCO2 mmHg VBG pO2 mmHg VBG HCO3 (22-26) mmol/L VBG O2 Saturation % VBG Base Excess mmol/L Troponin I High Sens (<3.5-17.0) ng/L B-Natriuretic Peptide 48 (<100) pg/mL Urine Color Yellow Urine Appearance Clear Urine pH 8.0 (5.0-9.0) Ur Specific [place] 1.010 (1.005-1.025) Urine Protein Trace (Neg-Trace) mg/dL Urine Glucose (UA) Negative (Negative) mg/dL Urine Ketones 80 (Negative) mg/dL Urine Blood Negative (Negative) Urine Nitrite Negative (Negative) Ur Leukocyte Esterase Negative (Negative) COVID-19 (SEAN) Negative (Negative) COVID-19 Clin Com See Note 12/22/21 Range/Units 23:27 WBC (4.8-10.8) X10*3/uL RBC (4.20-5.50) X10*6/uL Hgb (12.0-16.0) g/dl Hct (37.0-47.0) % MCV (80.0-98.0) fL MCH (27.0-33.0) pg MCHC (31.0-35.0) g/dl RDW (11.0-16.0) % Plt Count (160-400) X10*3/uL MPV (9.4-12.3) fL Immature Gran % (Auto) (0.0-0.4) % Neut % (Auto) (45-73) % Lymph % (Auto) (20-40) % [place] % (Auto) (2-11) % Eos % (Auto) (0-4) % Baso % (Auto) (0-2) % Lymph # (Auto) (1.2-4.9) X10*3/uL [place] # (Auto) (0.1-1.2) X10*3/uL Eos # (Auto) (0.0-0.4) X10*3/uL Baso # (Auto) (0.0-0.2) X10*3/uL Abs Immat Gran (auto) (0.00-0.03) X10*3/uL Absolute Neuts (auto) (2.0-8.3) x10*3/uL Absolute Nucleated RBC (0.0-0.012) X10*3/uL Nucleated RBC % (auto) (0.0-0.2) /100WBC PT (10.0-13.1) SEC INR (0.9-1.1) D-Dimer High Sensitivty NG/ML VBG pH 7.47 H (7.32-7.43) VBG pCO2 41 mmHg VBG pO2 63 mmHg VBG HCO3 30 H (22-26) mmol/L VBG O2 Saturation 92.0 % VBG Base Excess 6.2 mmol/L Troponin I High Sens (<3.5-17.0) ng/L B-Natriuretic Peptide (<100) pg/mL Urine Color Urine Appearance Urine pH (5.0-9.0) Ur Specific [place] (1.005-1.025) Urine Protein (Neg-Trace) mg/dL Urine Glucose (UA) (Negative) mg/dL Urine Ketones (Negative) mg/dL Urine Blood (Negative) Urine Nitrite (Negative) Ur Leukocyte Esterase (Negative) COVID-19 ([facility]) (Negative) COVID-19 Clin Com Discharge Plan Discharge Clinical Impression: Chronic obstructive pulmonary disease with hypoxia, Anxiety Patient Disposition: Admitted As Inpatient
--- NOTE | 2021-12-22 17:42 | ECG_ITS ---
Test Reason : DYSPNEA Blood Pressure : / mmHG Vent. Rate : 116 BPM Atrial Rate : 116 BPM P-R Int : 142 ms QRS Dur : 070 ms QT Int : 322 ms P-R-T Axes : 072 045 055 degrees QTc Int : 447 ms Sinus tachycardia Nonspecific ST abnormality Abnormal ECG When compared with ECG of 19-NOV-2021 02:18, Heart rate has increased Referred By: Gilson Shelton Electronically Signed By:ANJUM HERNANDEZ MD
[2021-12-22 18:00] VITALS: BP 167/85; PULSE 112; RESP 22; TEMP 36.8; O2SAT 99
[2021-12-22 18:09] VITALS: PULSE 108; RESP 18; O2SAT 99
[2021-12-22] MEDS: Albuterol Sulfate 2.5 MG, Albuterol/Iprat 2.5/0.5MG 3 ML 3 ML INHALE (18:10)
[2021-12-22] MEDS: LORazepam 1 MG TABLET 2 MG PO (18:17)
[2021-12-22] MEDS: methylPREDNISolone Sod Succ 125 MG/2 ML VIAL IVPUSH (18:17)
[2021-12-22] MEDS: 0.9 % Sodium Chloride 1,000 ML 999 ML IV (18:19)
[2021-12-22 18:52] LABS: MANUAL DIFF FLAG NO
[2021-12-22 18:57] LABS: Basophils Percent Auto 0.4 % (0-2); Eosinophils Percent Auto 0.4 % (0-4); Hematocrit 41.3 % (37.0-47.0); Hemoglobin 12.6 g/dl (12.0-16.0); Imm Gran Abs Auto 0.07 X10*3/uL (0.00-0.03); Imm Gran Pct Auto 0.9 % (0.0-0.4); Lymphocytes Absolute Auto 1.3 X10*3/uL (1.2-4.9); Lymphocytes Percent Auto 15.8 % (20-40); Mean Corpuscular HGB Conc 30.5 g/dl (31.0-35.0); Mean Corpuscular Hemoglobin 26.4 pg (27.0-33.0); Mean Corpuscular Volume 86.6 fL (80.0-98.0); Mean Platelet Volume 9.4 fL (9.4-12.3); Monocytes Absolute Auto 0.7 X10*3/uL (0.1-1.2); Neutrophils Absolute Auto 6.1 x10*3/uL (2.0-8.3); Neutrophils Percent Auto 74.5 % (45-73); Platelet Count 330 X10*3/uL (160-400); Red Blood Count 4.77 X10*6/uL (4.20-5.50); Red Cell Distribution Width 13.9 % (11.0-16.0); White Blood Count 8.2 X10*3/uL (4.8-10.8)
[2021-12-22 19:00] LABS: Prothrombin Time 10.9 SEC (10.0-13.1)
[2021-12-22 19:02] LABS: D Dimer High Sensitivity 246 NG/ML
[2021-12-22 19:08] LABS: COVID-19 Test Negative (Negative); IDNOW Serial# 16C4AD1C
[2021-12-22 19:21] LABS: Troponin-I High Sensitivity < 3.5 ng/L (<3.5-17.0)
--- NOTE | 2021-12-22 21:08 | PHA.MEDREC ---
Pharmacy Consult ? Medication Reconciliation Pharmacy has completed the medication reconciliation.
[2021-12-22 21:17] VITALS: BP 198/102; PULSE 117; RESP 25; TEMP 36.7; O2SAT 96
[2021-12-22 21:21] LABS: Appearance Urine Clear; Color Urine Yellow; Glucose Urine UA Negative (Negative); Leukocyte Esterase Urine Negative (Negative); Nitrite Urine Negative (Negative); Urine Blood Negative (Negative); Urine Ketones 80 mg/dL (Negative); Urine Protein Trace mg/dL (Neg-Trace)
[2021-12-22 23:28] VITALS: BP 186/89; PULSE 117; RESP 20; TEMP 36.8; O2SAT 96
[2021-12-22 23:32] LABS: Venous Blood Gas Refer to POC result
[2021-12-22 23:33] LABS: VBG Base Excess 6.2 mmol/L; VBG HCO3 30 mmol/L (22-26); VBG pCO2 41 mmHg; VBG pH 7.47 (7.32-7.43); VBG pO2 63 mmHg
[2021-12-22] MEDS: iohexoL 350 MG/ML 100 ML INFUS..BTL 65 ML IV (23:58)
[2021-12-23] VITALS (12 sets, daily range): BP systolic 126–184; BP diastolic 64–98; PULSE 91–118; RESP 16–24; TEMP 36.5–36.9; O2SAT 94–100
[2021-12-23] LABS: B Type Natriuretic Peptide 48 pg/mL (<100)
[2021-12-23] MEDS: 0.9 % Sodium Chloride 1,000 ML 999 ML IV (00:04)
[2021-12-23] MEDS: Butalb/Acetamin/Caff 50/325/40 TABLET 2 TAB PO (00:35)
[2021-12-23] MEDS: LORazepam 1 MG TABLET 2 MG PO ×3 (03:59→18:56)
[2021-12-23] MEDS: Enoxaparin Sodium 40 MG/0.4 ML SYRINGE SUBCUT ×2 (03:59→21:24)
[2021-12-23 05:39] LABS: Basophils Percent Auto 0.2 % (0-2); Hemoglobin 11.4 g/dl (12.0-16.0); Imm Gran Abs Auto 0.02 X10*3/uL (0.00-0.03); Imm Gran Pct Auto 0.4 % (0.0-0.4); Lymphocytes Absolute Auto 0.5 X10*3/uL (1.2-4.9); Lymphocytes Percent Auto 11.2 % (20-40); MANUAL DIFF FLAG NO; Mean Corpuscular HGB Conc 31.7 g/dl (31.0-35.0); Mean Corpuscular Volume 85.3 fL (80.0-98.0); Mean Platelet Volume 9.5 fL (9.4-12.3); Monocytes Absolute Auto 0.2 X10*3/uL (0.1-1.2); Monocytes Percent Auto 4.3 % (2-11); Neutrophils Absolute Auto 3.8 x10*3/uL (2.0-8.3); Neutrophils Percent Auto 83.9 % (45-73); Platelet Count 310 X10*3/uL (160-400); Red Blood Count 4.22 X10*6/uL (4.20-5.50); White Blood Count 4.5 X10*3/uL (4.8-10.8)
[2021-12-23] MEDS: oxyCODONE HCl Immed Release 5 MG TABLET PO ×2 (05:54→17:24)
[2021-12-23] MEDS: methylPREDNISolone Sod Succ 40 MG/ML VIAL IVPUSH ×2 (05:54→17:24)
[2021-12-23 06:01] LABS: Anion Gap 16 (12-20); Blood Urea Nitrogen 9 mg/dL (9-16); Carbon Dioxide 30 mmol/L (22-29); Chloride 98 mmol/L (96-108); Creatinine Clr Calc Pharmacy 75.1; Estimated Glomerular Filt Rate > 60; Glucose Random 167 mg/dL (60-115); Potassium 3.3 mmol/L (3.3-5.1); Sodium 141 mmol/L (135-145)
--- NOTE | 2021-12-23 06:30 | PM.IMHP ---
History of Present Illness Date of Service: 12/23/21 Chief Complaint: Shortness of breath 66-year-old female with past medical history of recurrent hospital admissions for COPD exacerbations, chronic respiratory failure on on baseline 2 L of oxygen, HTN, prior COVID infection in August of this year anxiety on chronic Ativan, presents to the hospital with complaints of shortness of breath, cough, sputum production for the past 1 day. Patient denies any fever or chills, no chest pain, no abdominal pain nausea or vomiting, no diarrhea or constipation talk no urinary symptoms and no lower extremity edema. No orthopnea or PND On arrival to the ED patient hemodynamically stable was placed on 5 L of nasal cannula by EMS due to reported hypoxia. Patient is currently on 5 L satting 94-96% Labs are remarkable for WBC count of 4.5, pH of 7.47, no CO2 retention, otherwise unremarkable CT angiogram of the chest is negative for PE, showed loculated fluid collection in the minor fissure on the right with underlying COPD Review of Systems Review of Systems: Yes all other systems are reviewed and are negative [facility] Medical History Anxiety Asthma Bronchitis Chronic respiratory failure COPD (chronic obstructive pulmonary disease) Diverticulitis Dizziness Emphysema lung Hypertension Otitis media Vertigo Family History Other No family history of coronary artery disease Surgical History History of breast surgery History of laparotomy Social History Household Members: Spouse Housing: [facility] Do you presently have visiting nurse or other home services: No Alcohol intake: never Patient Tobacco Use Status: Never used Tobacco Smoked in Last 30 Days: No Use of substances other than those prescribed or required for medical reasons: No Advance Directives: Yes Advance Directives on File: Yes Advance Directives Date on File: 07/09/21 service: No Current occupational status: disabled Meds Allergies Allergy/AdvReac Type Severity Reaction Status Date / Time morphine [MORPHINE] Allergy Severe HIVES, Verified 11/19/21 01:59 high temp, nausea tramadol [TRAMADOL] Allergy Severe SWEATING, Verified 11/19/21 01:59 VOMITING, vomiting amoxicillin [From AUGMENTIN] AdvReac Severe CONSTIPATIO Verified 11/19/21 01:59 N clavulanic acid AdvReac Severe CONSTIPATIO Verified 11/19/21 01:59 [From AUGMENTIN] N codeine [CODEINE] AdvReac Severe NAUSEA Verified 11/19/21 01:59 levofloxacin [From LEVAQUIN] AdvReac Severe CONSTIPATIO Verified 11/19/21 01:59 N Sulfa(Sulfonamide Allergy Unknown Unknown Uncoded 10/04/20 22:39 Antibiotics) Active Medications: Current Medications Acetaminophen (Acetaminophen 325 Mg Tablet) 650 mg PO Q6H PRN PRN Reason: Pain, Mild (Pain Scale 1-3) Acetaminophen/Butalbital/Caffeine (Butalb/Acetamin/Caff 50/325/40 Tablet) 1 tab PO Q12H PRN PRN Reason: Headache Albuterol/Ipratropium (Albuterol/Iprat 2.5/0.5mg 3 Ml Ampul.Neb) 3 ml INHALE RQ4H PRN PRN Reason: Shortness of Breath Albuterol/Ipratropium (Albuterol/Iprat 2.5/0.5mg 3 Ml Ampul.Neb) 3 ml INHALE RQ4H WHILE AWAKE [facility] Diltiazem HCl (Diltiazem Hcl Cd 180 Mg Cap.Er.24h) 360 mg PO DAILY NARCISA; Protocol Docusate Sodium (Docusate Sodium 100 Mg Capsule) 100 mg PO DAILY PRN PRN Reason: Constipation Enoxaparin Sodium (Enoxaparin Sodium 40 Mg/0.4 Ml Syringe) 40 mg SUBCUT BEDTIME [facility] Last Admin: 12/23/21 03:59 Dose: 40 mg Lorazepam (Lorazepam 1 Mg Tablet) 2 mg PO Q6H PRN PRN Reason: anxiety Meclizine HCl (Meclizine Hcl 25 Mg Tablet) 25 mg PO TID PRN PRN Reason: dizziness Methylprednisolone Sodium Succinate (Methylprednisolone Sod Succ 40 Mg/Ml Vial) 40 mg IVPUSH Q12H [facility] Last Admin: 12/23/21 05:54 Dose: 40 mg Ondansetron HCl (Ondansetron Hcl 4 Mg/2 Ml Vial) 4 mg IVPUSH Q8H PRN PRN Reason: Nausea and Vomiting Sodium Chloride (0.9 % Sodium Chloride Flush 3 Ml Syringe) [facility] Medications Medication Instructions Recorded Confirmed Last Taken Type albuterol sulfate 2.5 mg/3 mL 1 vial inhalation 6XD 10/04/20 12/22/21 12/22/21 History (0.083 %) solution for nebulization [id number] 1 tab PO Q12H PRN Headache 10/04/20 12/22/21 07/08/21 History 50 mg-325 mg-40 mg tablet diltiazem HCl 360 mg capsule,24 1 cap PO DAILY 07/08/21 12/22/21 12/22/21 History hr,extended release lorazepam 2 mg tablet 1 tab PO Q6H PRN anxiety 07/08/21 12/22/21 07/08/21 History ipratropium bromide 0.02 % 2.5 ml inhalation Q6H PRN wheezing 09/25/21 12/22/21 Unknown History solution for inhalation fluticasone 250 mcg-salmeterol 50 1 puff inhalation BID 12/22/21 12/22/21 12/22/21 History mcg/dose blistr powdr for inhalation (Romina Inhub) Physical Exam Vital Signs and Narrative: Vital Signs: Last Vital Signs Temp 98.4 F 12/23/21 04:31 Pulse 118 H 12/23/21 04:31 Resp 21 H 12/23/21 04:31 BP 159/83 H 12/23/21 04:31 Pulse Ox 95 12/23/21 04:31 O2 Del Method 12/23/21 04:31 O2 Flow Rate 5 12/23/21 04:31 Oxygen Flow Rate 5 12/22/21 17:05 BMI result Body Mass Index 27.8 Const: Other: Sitting up in bed General: cooperative and no acute distress Orientation/consciousness: patient oriented x3 Eyes: General: appearance normal, both eyes and all related structures Resp: Other: No use of accessory muscles, has crackles bilaterally, Effort & Inspection: normal respiratory effort Cardio: Rate: regular rate Rhythm: regular rhythm GI: Palpation (GI): Soft to palpation Auscultation: normal bowel sounds Skin: General skin exam: no rashes or lesions noted Neuro: General: patient oriented x3 Cognition (Neuro): normal cognition Extrem: General: Yes normal to inspection and Yes no pedal edema Results Labs CBC and Chem 7: 12/23/21 05:29 12/23/21 05:29 Labs: Laboratory Results - last 24 hr 12/22/21 12/22/21 12/22/21 18:47 18:47 18:47 MCV 86.6 MCH 26.4 L MCHC 30.5 L RDW 13.9 Plt Count 330 MPV 9.4 Immature Gran % (Auto) 0.9 H Neut % (Auto) 74.5 H Lymph % (Auto) 15.8 L [place] % (Auto) 8.0 Eos % (Auto) 0.4 Baso % (Auto) 0.4 Lymph # (Auto) 1.3 [place] # (Auto) 0.7 Eos # (Auto) 0.0 Baso # (Auto) 0.0 Abs Immat Gran (auto) 0.07 H Absolute Neuts (auto) 6.1 Absolute Nucleated RBC 0.000 Nucleated RBC % (auto) 0.0 PT 10.9 INR 1.0 D-Dimer High Sensitivty 246 VBG pH VBG pCO2 VBG pO2 VBG HCO3 VBG O2 Saturation VBG Base Excess Anion Gap Estim Creat Clear Calc Estimated GFR Random Glucose Calcium Troponin I High Sens < 3.5 B-Natriuretic Peptide Urine Color Urine Appearance Urine pH Ur Specific Terry Urine Protein Urine Glucose (UA) Urine Ketones Urine Blood Urine Nitrite Ur Leukocyte Esterase COVID-19 ([facility]) COVID-19 Clin Com 12/22/21 12/22/21 12/22/21 18:47 21:09 23:25 MCV MCH MCHC RDW Plt Count MPV Immature Gran % (Auto) Neut % (Auto) Lymph % (Auto) [place] % (Auto) Eos % (Auto) Baso % (Auto) Lymph # (Auto) [place] # (Auto) Eos # (Auto) Baso # (Auto) Abs Immat Gran (auto) Absolute Neuts (auto) Absolute Nucleated RBC Nucleated RBC % (auto) PT INR D-Dimer High Sensitivty VBG pH VBG pCO2 VBG pO2 VBG HCO3 VBG O2 Saturation VBG Base Excess Anion Gap Estim Creat Clear Calc Estimated GFR Random Glucose Calcium Troponin I High Sens B-Natriuretic Peptide 48 Urine Color Yellow Urine Appearance Clear Urine pH 8.0 Ur Specific Terry 1.010 Urine Protein Trace Urine Glucose (UA) Negative Urine Ketones 80 Urine Blood Negative Urine Nitrite Negative Ur Leukocyte Esterase Negative COVID-19 (SEAN) Negative COVID-19 Clin Com See Note 12/22/21 12/23/21 12/23/21 23:27 05:29 05:29 MCV 85.3 MCH 27.0 MCHC 31.7 RDW 14.0 Plt Count 310 MPV 9.5 Immature Gran % (Auto) 0.4 Neut % (Auto) 83.9 H Lymph % (Auto) 11.2 L [place] % (Auto) 4.3 Eos % (Auto) 0.0 Baso % (Auto) 0.2 Lymph # (Auto) 0.5 L [place] # (Auto) 0.2 Eos # (Auto) 0.0 Baso # (Auto) 0.0 Abs Immat Gran (auto) 0.02 Absolute Neuts (auto) 3.8 Absolute Nucleated RBC 0.000 Nucleated RBC % (auto) 0.0 PT INR D-Dimer High Sensitivty VBG pH 7.47 H VBG pCO2 41 VBG pO2 63 VBG HCO3 30 H VBG O2 Saturation 92.0 VBG Base Excess 6.2 Anion Gap 16 Estim Creat Clear Calc 75.1 Estimated GFR > 60 Random Glucose 167 H Calcium 9.0 D Troponin I High Sens B-Natriuretic Peptide Urine Color Urine Appearance Urine pH Ur Specific Terry Urine Protein Urine Glucose (UA) Urine Ketones Urine Blood Urine Nitrite Ur Leukocyte Esterase COVID-19 ([facility]AN) COVID-19 Clin Com Imaging Radiologist's Impressions: Impressions Chest X-Ray 12/22/21 18:31 IMPRESSION: 1. No acute intrathoracic disease. 2. Nodular opacity right mid lung. Malignancy must be considered in the differential diagnosis. Contrast-enhanced CT scan of the chest may be useful for further evaluation Chest CTA 12/23/21 00:00 IMPRESSION: 1. No evidence of pulmonary emboli. 2. Loculated fluid collection in the minor fissure on the right accounts for the opacity seen on the chest radiograph. 3. Underlying COPD VTE: negative Assessment and Plan (1) COPD exacerbation: Status: Acute Plan 66-year-old female with past medical history of COPD on chronic O2 2 L baseline presents to the hospital with complaints of shortness of breath, cough and sputum production. # acute COPD exacerbation - no evidence of pneumonia, although has a loculated fluid collection in the chest - will treat with steroids, DuoNebs - will consult pulmonology to evaluate for this loculated fluid collection - titrate oxygen down to baseline with a goal of O2 between 88-92% given her underlying COPD # hypertension - stable - continue diltiazem # history of anxiety - continue home Ativan DVT prophylaxis: Lovenox Given patient's acute COPD exacerbation as well as increased O2 requirement she will require minimum 2 night inpatient hospital stay for further management Quality Stroke Does the patient have a stroke diagnosis?: No VTE Prior VTE?: No VTE Risk Level:: Medical - moderate - high VTE Device Contraindication: Treatment Not Indicated VTE Drug Contraindication: N/A - Med Ordered
--- NOTE | 2021-12-23 07:15 | PC.NURSE ---
pt is a/o x 4 no sob/pedro noted 02 sat 100% on 6l/m via n/c. pt denies any pain/disc. lungs - diminished all lobes. heart sound regular. no edema noted. abd soft and non-tender bs = x 4 quads. pt ate 100% of breakfast. pt aware of plan of care.
[2021-12-23] MEDS: 0.9 % Sodium Chloride Flush 3 ML SYRINGE IVFLUSH ×3 (07:20→21:28)
[2021-12-23] MEDS: dilTIAZem HCL CD 180 MG CAP.ER.24H 360 MG PO (07:29)
[2021-12-23] MEDS: Potassium Chloride Packet 20 MEQ PACKET PO (08:58)
--- NOTE | 2021-12-23 09:12 | PC.NURSE ---
rn to rn report given to josr beach aware of plan of care for [facility] [place].
[2021-12-23] MEDS: Albuterol/Iprat 2.5/0.5MG 3 ML AMPUL.NEB INHALE ×3 (11:14→19:59)
--- NOTE | 2021-12-23 12:32 | PM.EVENT ---
Event Note Date of Service: 12/23/21 Event Note: patient already seen by hospitalist team this morning. ?seen and examined again- still somewhat short of breath with walking, denies any chest pain or abdominal pain or nausea vomiting ?physical exam: ?unchanged . ?assessment plan:? Coordinated in H&P note Seen by Pulmonary-acute COPD exacerbation-?has a loculated fluid collection in the chest( possible abcess) continue nebs, steroid added IV antibiotics, blood culture added. wbc 4.5,tachycardia -due to anxiety/nebs does not meet sepsis criteria pulm followin
[2021-12-23] MEDS: cefTRIAXone sodium 1 GM in 0.9 % Sodium Chloride 50 ML IV (12:48)
--- NOTE | 2021-12-23 14:04 | PM.CNPUL ---
History of Present Illness History of Present Illness Consult date: 12/23/21 Requesting physician: Fang Joshua Chief complaint: COPD Exacerbation Narrative: 66-year-old lady with underlying severe supplemental oxygen 2 L continuous flow dependent COPD admitted on 12/22/2021 with progressive dyspnea and acute on chronic hypoxic respiratory failure. Patient noted to have a right-sided pulmonary cyst doses abscess. She was started on empiric broad-spectrum antibiotics, nebulized bronchodilators, and systemic glucocorticoids. Today she states that her dyspnea is improving. Review of Systems Constitutional: Constitutional: Denies daytime sleepiness, Denies excessive sweating, Denies fatigue, Denies fever(s), Denies lethargy, Denies malaise, Denies night sweats, Denies snoring and Denies weight loss Eyes: Eyes: Denies blurry vision and Denies itchy eyes ENT: Denies nasal congestion, Denies post nasal drip, Denies sinus pain, Denies sinus pressure and Denies other ( Thrush) Cardiovascular: Cardiovascular: Denies chest pain, Denies pedal edema, Denies dyspnea, Reports dyspnea on exertion, Denies orthopnea and Denies paroxysmal nocturnal dyspnea Respiratory: Respiratory: Reports cough, Denies hemoptysis, Reports excessive phlegm production, Denies dyspnea, Reports dyspnea on exertion, Denies snoring and Reports wheezing Gastrointestinal: Gastrointestinal: Denies abdominal pain and Denies heartburn Musculoskeletal: Musculoskeletal: Denies myalgias, Denies arthralgias and Denies joint swelling Integumentary/Breasts: Skin/Breast: Denies rash Neurologic: Denies memory loss and Denies seizure-like activity Psychiatric: Psychiatric: Denies abnormal sleep pattern, Denies anxiety and Denies memory loss Endocrine: Endocrine: Denies excessive sweating, Denies fatigue and Denies heat intolerance Hematologic/Lymphatic: Hematologic/Lymphatic: Denies easy bruising Allergic/Immunologic: Allergic/Immunologic: Denies itchy eyes, Denies seasonal rhinorrhea and Reports wheezing PMFSH Past Medical History Medical History Anxiety Asthma Bronchitis Chronic respiratory failure COPD (chronic obstructive pulmonary disease) Diverticulitis Dizziness Emphysema lung Hypertension Otitis media Vertigo Family History Family History Other No family history of coronary artery disease Surgical History Surgical History History of breast surgery History of laparotomy Social History Social History Household Members: Spouse Housing: Other Housing Other:: room Do you presently have visiting nurse or other home services: No Alcohol intake: never Patient Tobacco Use Status: Never used Tobacco Substance Use Type: Marijuana Advance Directives Date on File: 07/09/21 service: No Current occupational status: disabled Meds Allergies Allergy/AdvReac Type Severity Reaction Status Date / Time morphine [MORPHINE] Allergy Severe HIVES, Verified 11/19/21 01:59 high temp, nausea tramadol [TRAMADOL] Allergy Severe SWEATING, Verified 11/19/21 01:59 VOMITING, vomiting amoxicillin [From AUGMENTIN] AdvReac Severe CONSTIPATIO Verified 11/19/21 01:59 N clavulanic acid AdvReac Severe CONSTIPATIO Verified 11/19/21 01:59 [From AUGMENTIN] N codeine [CODEINE] AdvReac Severe NAUSEA Verified 11/19/21 01:59 levofloxacin [From LEVAQUIN] AdvReac Severe CONSTIPATIO Verified 11/19/21 01:59 N Sulfa(Sulfonamide Allergy Unknown Unknown Uncoded 10/04/20 22:39 Antibiotics) Active Medications: Current Medications Acetaminophen (Acetaminophen 325 Mg Tablet) 650 mg PO Q6H PRN PRN Reason: Pain, Mild (Pain Scale 1-3) Acetaminophen/Butalbital/Caffeine (Butalb/Acetamin/Caff 50/325/40 Tablet) 1 tab PO Q12H PRN PRN Reason: Headache Albuterol/Ipratropium (Albuterol/Iprat 2.5/0.5mg 3 Ml Ampul.Neb) 3 ml INHALE RQ4H PRN PRN Reason: Shortness of Breath Albuterol/Ipratropium (Albuterol/Iprat 2.5/0.5mg 3 Ml Ampul.Neb) 3 ml INHALE RQ4H WHILE AWAKE [facility] Last Admin: 12/23/21 11:14 Dose: 3 ml Diltiazem HCl (Diltiazem Hcl Cd 180 Mg Cap.Er.24h) 360 mg PO DAILY [facility]; Protocol Last Admin: 12/23/21 07:29 Dose: 360 mg Docusate Sodium (Docusate Sodium 100 Mg Capsule) 100 mg PO DAILY PRN PRN Reason: Constipation Enoxaparin Sodium (Enoxaparin Sodium 40 Mg/0.4 Ml Syringe) 40 mg SUBCUT BEDTIME [facility] Last Admin: 12/23/21 03:59 Dose: 40 mg Hydralazine HCl (Hydralazine Hcl 20 Mg/Ml Vial) 10 mg IVPUSH Q4H PRN; Protocol PRN Reason: htn Ceftriaxone Sodium 1 gm/ (Sodium Chloride) 50 mls @ 100 mls/hr IV Q24H [facility] Last Infusion: 12/23/21 13:29 Dose: Infused Lorazepam (Lorazepam 1 Mg Tablet) 2 mg PO Q6H PRN PRN Reason: anxiety Last Admin: 12/23/21 09:59 Dose: 2 mg Meclizine HCl (Meclizine Hcl 25 Mg Tablet) 25 mg PO TID PRN PRN Reason: dizziness Methylprednisolone Sodium Succinate (Methylprednisolone Sod Succ 40 Mg/Ml Vial) 40 mg IVPUSH Q12H [facility] Last Admin: 12/23/21 05:54 Dose: 40 mg Ondansetron HCl (Ondansetron Hcl 4 Mg/2 Ml Vial) 4 mg IVPUSH Q8H PRN PRN Reason: Nausea and Vomiting Sodium Chloride (0.9 % Sodium Chloride Flush 3 Ml Syringe) 3 ml IVFLUSH QSHIFT [facility] Last Admin: 12/23/21 07:20 Dose: 3 ml Home Medications Medication Instructions Recorded Confirmed Last Taken Type albuterol sulfate 2.5 mg/3 mL 1 vial inhalation 6XD 10/04/20 12/22/21 12/22/21 History (0.083 %) solution for nebulization [id number]-[id number]-[id number] 1 tab PO Q12H PRN Headache 10/04/20 12/22/21 07/08/21 History 50 mg-325 mg-40 mg tablet diltiazem HCl 360 mg capsule,24 1 cap PO DAILY 07/08/21 12/22/21 12/22/21 History hr,extended release lorazepam 2 mg tablet 1 tab PO Q6H PRN anxiety 07/08/21 12/22/21 07/08/21 History ipratropium bromide 0.02 % 2.5 ml inhalation Q6H PRN wheezing 09/25/21 12/22/21 Unknown History solution for inhalation fluticasone 250 mcg-salmeterol 50 1 puff inhalation BID 12/22/21 12/22/21 12/22/21 History mcg/dose blistr powdr for inhalation (Briannexbettye Inhub) Physical Exam Vital Signs: Vital Signs: Last Vital Signs Temp 98.4 F 12/23/21 12:00 Pulse 106 H 12/23/21 12:00 Resp 20 12/23/21 12:00 BP 126/98 H 12/23/21 12:00 Pulse Ox 95 12/23/21 12:00 O2 Del Method 12/23/21 12:00 O2 Flow Rate 5 12/23/21 12:00 Oxygen Flow Rate 5 12/22/21 17:05 BMI result Body Mass Index 27.8 Const: General: no acute distress and alert Nutritional Appearance: not obese Orientation/consciousness: Other orientation findings ( oriented) HEENT: Head: Yes atraumatic Mouth: no other ( thrush) Throat: No postnasal drainage Eyes: General: appearance normal, both eyes and all related structures Sclerae: sclerae normal EOM: EOMs intact bilaterally Neck: Neck: Yes supple Lymphatic: no lymphadenopathy noted Resp: Effort & Inspection: normal respiratory effort and no use of accessory muscles Auscultation: wheezes expiratory wheezes (Mild bilateral) Cardio: Rate: tachycardic Rhythm: regular rhythm Heart sounds: no gallops, no murmurs and no rubs GI: Palpation (GI): Soft to palpation and Other GI palpation findings present ( nontender) Skin: General skin exam: other ( warm) Rashes: no rashes Extrem: General: No clubbing, No cyanosis and No edema Results Laboratory Findings CBC and BMP: 12/23/21 05:29 12/23/21 05:29 ABG, PT/INR, D-dimer: PT/INR, D-dimer PT 10.9 SEC (10.0-13.1) 12/22/21 18:47 INR 1.0 (0.9-1.1) 12/22/21 18:47 Abnormal lab findings: Abnormal Labs 12/22/21 12/22/21 12/23/21 18:47 23:27 05:29 WBC 4.5 L Hgb 11.4 L Hct 36.0 L MCH 26.4 L MCHC 30.5 L Immature Gran % (Auto) 0.9 H Neut % (Auto) 74.5 H 83.9 H Lymph % (Auto) 15.8 L 11.2 L Lymph # (Auto) 0.5 L Abs Immat Gran (auto) 0.07 H VBG pH 7.47 H VBG HCO3 30 H Carbon Dioxide Random Glucose 12/23/21 05:29 WBC Hgb Hct MCH MCHC Immature Gran % (Auto) Neut % (Auto) Lymph % (Auto) Lymph # (Auto) Abs Immat Gran (auto) VBG pH VBG HCO3 Carbon Dioxide 30 H Random Glucose 167 H Assessment and Plan (1) COPD exacerbation: Status: Acute (2) Pulmonary abscess: Status: Acute (3) Acute and chronic respiratory failure with hypoxia: Status: Acute Plan Impression: 66-year-old lady with underlying severe supplemental oxygen dependent COPD admitted with acute on chronic hypoxic respiratory failure secondary to COPD exacerbation, also noted to have pulmonary cyst versus abscess. Now slowly improving. Recommendations: Agree with current regimen with his nebulized bronchodilators and systemic glucocorticoids. Consider treatment with ceftriaxone while inpatient and Vantin while outpatient for total of 4 weeks for pulmonary abscess with CT chest follow-up in 2-3 months. Procedures Date of Service Date of Service: 12/23/21
--- NOTE | 2021-12-23 20:41 | PC.NURSE ---
Patient refusing tele monitor.
[2021-12-24] MEDS: LORazepam 1 MG TABLET 2 MG PO ×4 (00:42→20:08)
[2021-12-24] MEDS: Butalb/Acetamin/Caff 50/325/40 TABLET 1 TAB PO ×3 (02:54→13:58)
[2021-12-24 03:36] VITALS: BP 127/57; PULSE 84; RESP 20; TEMP 36.6; O2SAT 98
[2021-12-24] MEDS: methylPREDNISolone Sod Succ 40 MG/ML VIAL IVPUSH (06:12)
[2021-12-24 07:26] VITALS: BP 132/70; PULSE 79; RESP 20; TEMP 36.6; O2SAT 98
--- NOTE | 2021-12-24 08:52 | PC.NURSE ---
pt refusing tele - Md notified and aware
--- NOTE | 2021-12-24 08:58 | MHC.CM.PN ---
Patient is presently located in the Covid (+) section of the hospital and unavailable by phone; CM spoke with /HCP/Marcelino @ [phone] and addressed IMM with him (original to be mailed certified letter to Marcelino and a copy has been placed on the chart). Patient lives with her at the [facility] in [place] and her home O2 is supplied by a company in [place]. Home/resume home O2 is the goal and CM has initiated and will follow for dc planning. PCP is DR. Arevalo Name and Patient has received Moderna/Covid vax x1.
[2021-12-24 11:33] VITALS: BP 130/65; PULSE 68; RESP 17; TEMP 36.8; O2SAT 95
[2021-12-24] MEDS: cefTRIAXone sodium 1 GM in 0.9 % Sodium Chloride 50 ML IV (13:45)
[2021-12-24 16:00] VITALS: BP 150/67; PULSE 85; RESP 17; TEMP 36.8; O2SAT 99
--- NOTE | 2021-12-24 16:24 | HO.PM.IMPN ---
Subjective Subjective Date of Service: 12/24/21 Interval History: acute COPD exacerbation, Possible lung abscess,?, anxiety/delusional Review of Systems she says that she is talking to the [facility]- going on from long time not new in the morning was agitated and was refusing treatment afterwards she agrees to put oxygen and allowed for giving antibiotics. otherwise answers limited questions get agitated- says no chest pain no abdominal pain or nausea or vomiting Physical Exam Vital Signs: Vital Signs: Last Vital Signs Temp 98.2 F 12/24/21 11:33 Pulse 68 12/24/21 11:33 Resp 17 12/24/21 11:33 BP 130/65 12/24/21 11:33 Pulse Ox 95 12/24/21 11:33 O2 Del Method 12/24/21 11:33 O2 Flow Rate 5 12/24/21 07:26 Oxygen Flow Rate 5 12/22/21 17:05 BMI result Body Mass Index 27.8 limited exam: Appearance: awake ,agiatted ? cvs: rrr, [id number] . res:air entry diminshed ,has wheezing abd: no rebound or guarding ,nt, bs present. ext pulses present , no cyanosis . neuro: awake,moves all ext,motor gross intact psych: deluisonal. Objective Data Active Medications Acetaminophen (Acetaminophen 325 Mg Tablet) 650 mg PO Q6H PRN PRN Reason: Pain, Mild (Pain Scale 1-3) Acetaminophen/Butalbital/Caffeine (Butalb/Acetamin/Caff 50/325/40 Tablet) 1 tab PO Q12H PRN PRN Reason: Headache Last Admin: 12/24/21 13:58 Dose: 1 tab Documented By: BRENDA Albuterol/Ipratropium (Albuterol/Iprat 2.5/0.5mg 3 Ml Ampul.Neb) 3 ml INHALE RQ4H PRN PRN Reason: Shortness of Breath Albuterol/Ipratropium (Albuterol/Iprat 2.5/0.5mg 3 Ml Ampul.Neb) 3 ml INHALE RQ4H WHILE AWAKE [facility] Last Admin: 12/24/21 15:10 Dose: Not Given Documented By: REEMA Non-Admin Reason: Patient Condition Contraindication Diltiazem HCl (Diltiazem Hcl Cd 180 Mg Cap.Er.24h) 360 mg PO DAILY [facility]; Protocol Last Admin: 12/24/21 08:33 Dose: Not Given Documented By: BRENDA Non-Admin Reason: Patient Refused Docusate Sodium (Docusate Sodium 100 Mg Capsule) 100 mg PO DAILY PRN PRN Reason: Constipation Enoxaparin Sodium (Enoxaparin Sodium 40 Mg/0.4 Ml Syringe) 40 mg SUBCUT BEDTIME [facility] Last Admin: 12/23/21 21:24 Dose: 40 mg Documented By: DONNY Hydralazine HCl (Hydralazine Hcl 20 Mg/Ml Vial) 10 mg IVPUSH Q4H PRN; Protocol PRN Reason: htn Ceftriaxone Sodium 1 gm/ (Sodium Chloride) 50 mls @ 100 mls/hr IV Q24H [facility] Last Infusion: 12/24/21 14:56 Dose: 0 mls/hr Documented By: BRENDA Lidocaine (Lidocaine 4 % Patch Adh..Patch) 1 patch TRANSDERMA DAILY [facility]; Protocol Last Admin: 12/24/21 08:33 Dose: Not Given Documented By: BRENDA Non-Admin Reason: Patient Refused Lorazepam (Lorazepam 1 Mg Tablet) 2 mg PO Q6H [facility] Last Admin: 12/24/21 12:06 Dose: 2 mg Documented By: BRENDA Meclizine HCl (Meclizine Hcl 25 Mg Tablet) 25 mg PO TID PRN PRN Reason: dizziness Ondansetron HCl (Ondansetron Hcl 4 Mg/2 Ml Vial) 4 mg IVPUSH Q8H PRN PRN Reason: Nausea and Vomiting Sodium Chloride (0.9 % Sodium Chloride Flush 3 Ml Syringe) 3 ml IVFLUSH QSHIFT [facility] Last Admin: 12/24/21 08:32 Dose: Not Given Documented By: BRENDA Non-Admin Reason: Patient Refused Labs CBC & Chem 7: 12/23/21 05:29 12/23/21 05:29 Microbiology Microbiology Results: Microbiology 12/23/21 13:06 Blood Culture - Preliminary Blood - Venous No growth after 24 hours. 12/23/21 13:06 Blood Culture - Preliminary Blood - Venous No growth after 24 hours. Assessment and Plan (1) Acute and chronic respiratory failure with hypoxia: Status: Acute (2) Pulmonary abscess: Status: Acute (3) Anxiety: Status: Acute (4) Delusion: Status: Acute Plan 66-year-old female with past medical history of COPD on chronic O2 2 L baseline presents to the hospital with complaints of shortness of breath, cough and sputum production. # Acute hypoxemic respiratory failure secondary toacute COPD exacerbation /possible lung abscess - no evidence of pneumonia, although has a loculated fluid collection in the chest. seen by pulmonology to evaluate for this loculated fluid collection:- Chandan,strmalcoms ,added iv ceftriaxone day2. - titrate oxygen down to baseline with a goal of O2 between 88-92% given her underlying COPD # hypertension - stable - continue diltiazem # history of anxiety/dilusional as per Patient and her both state they are born again [employer]'s, and that as part of their belief they do speak with God through the? Holy spirit. d/w psych- continue home Ativan scheduled,dc loreto might be contibutin to anxiety, also if she can not make decision hcp is her . currently patient does not seem to be in the state of making decision. official psych consult still pending- but above was discussed with psych. d/w in detail hcp DVT prophylaxis:? Lovenox ongoing inpatient need:Acute hypoxemic respiratory failure secondary toacute COPD exacerbation /possible lung abscess- needs nebs, IV steroids, IV antibiotics, also has severe anxiety and delusional- Need monitoring. Quality Stroke Does the patient have a stroke diagnosis?: No VTE Prior VTE?: No VTE Risk Level:: Medical - moderate - high VTE Device Contraindication: Treatment Not Indicated VTE Drug Contraindication: N/A - Med Ordered
[2021-12-24] MEDS: 0.9 % Sodium Chloride Flush 3 ML SYRINGE IVFLUSH ×2 (17:24→20:09)
--- NOTE | 2021-12-24 17:28 | P.CNPS_ITS ---
History of Present Illness Date of Service: 12/24/2021 Chief Complaint: COPD Exacerbation Reason for Consult: medication, dispo Requesting physician: Fang Joshua Discussed with referring provider: Yes Sources of Information: patient interviewed and chart reviewed HPI Narrative: Tiffanie is a 66 y.o. female who carries a dx of ECTOR, r/o schizoaffective disorder vs. steroid induced psychosis (less likely, as per pt report and pt history her psychotic sx are longstanding). She has a past medical history of recurrent hospital admissions for COPD exacerbations, chronic respiratory failure on baseline 2 L of oxygen, HTN, prior COVID infection in August of this year. Pt has long standing hx of taking 2 mg Ativan QID. She presented to [facility] on 12/23/21 with complaints of shortness of breath, cough, and sputum production. She was placed on 5 L of nasal cannula 94-96%. Psych consult placed due to pt presenting with delusions (long standing, talks to the Holy Spirit), initially agitated and refusing treatment, however later consented. I spoke with pt this evening. She reports she hasn?t slept in four days, attributes this to ?just a lot of stress.? She is now saying she is agreeable to treatment and understands that she is in the hospital ?cause of my lungs,? chronic lung disease. She is interested in medication to help her sleep, energy is low. She acknowledges to feeling agitated, irritable. Identifies stressors as financial, has health issues, they don?t have a vehicle because it broke down, and they have to move out in January due to finances. Pt says at home her has to help her because she cant ambulate very far due to her SOB. No family supports, as she her only brother is in [place] and she reports her sister has three split personalities and lives in [place]. Pt does not have OP psych services, says she cant afford a therapist. Discusses trauma hx i.e. had two children in infancy, one from heart issues and another from SIDs. She has one living son who does not talk to her after she his father. Pt discusses her long standing AH and says ?people think im crazy because I have a holy spirit in me and he talks to me and sometimes he gets angry,? which causes her to ?act a certain way.? Says this holy spirit ?tries to give me the right advice? and she says prayers all the time because she is a born again confucianist. Per pt, the Holy spirit ?wont talk to me unless I talk to him first.? Denies that this is bothersome, says he is a ?comfort because he is very hodge? and ?sometimes we argue but its nothing bad.? Pt admits to feeling depressed sometimes, ?this world is getting dangerous.? Hx of being on antidepressants but says they ?jacked up my BP so high,? trialed four different meds but says she wa s told ?they clash with your heart rate.? Denies SI/SIB. Denies VH. Past Psychiatric History: hx ECTOR, receiving lorazepam for many years. Remote hx of psychiatrist for anxiety, over 30 years ago . No IPLOC Medical Evaluation Reviewed: Yes [facility] Medical History Anxiety Asthma Bronchitis Chronic respiratory failure COPD (chronic obstructive pulmonary disease) Diverticulitis Dizziness Emphysema lung Hypertension Otitis media Vertigo Surgical History History of breast surgery History of laparotomy Diagnostics Vital Signs (24Hr): Vital Signs - 24 hr 12/23/21 19:15 12/23/21 19:59 12/23/21 23:25 Temperature 98.1 F 98.1 F Pulse Rate 104 H 104 H 99 Respiratory Rate 18 18 19 Blood Pressure 174/79 H 136/64 Pulse Oximetry 100 100 Oxygen Delivery Method Nasal Cannula Nasal Cannula Oxygen Flow Rate 5 12/24/21 03:36 12/24/21 07:26 12/24/21 11:33 Temperature 97.8 F 97.9 F 98.2 F Pulse Rate 84 79 68 Respiratory Rate 20 20 17 Blood Pressure 127/57 L 132/70 130/65 Pulse Oximetry 98 98 95 Oxygen Delivery Method Nasal Cannula Nasal Cannula Room Air Oxygen Flow Rate 5 5 12/24/21 16:00 Temperature 98.2 F Pulse Rate 85 Respiratory Rate 17 Blood Pressure 150/67 H Pulse Oximetry 99 Oxygen Delivery Method Nasal Cannula Oxygen Flow Rate BMI result Body Mass Index 27.8 Labs Results: 12/23/21 05:29 12/23/21 05:29 Labs: Laboratory Results - last 48 hr 12/22/21 12/22/21 12/22/21 18:47 18:47 18:47 WBC 8.2 RBC 4.77 D Hgb 12.6 Hct 41.3 MCV 86.6 MCH 26.4 L MCHC 30.5 L RDW 13.9 Plt Count 330 MPV 9.4 Immature Gran % (Auto) 0.9 H Neut % (Auto) 74.5 H Lymph % (Auto) 15.8 L [place] % (Auto) 8.0 Eos % (Auto) 0.4 Baso % (Auto) 0.4 Lymph # (Auto) 1.3 [place] # (Auto) 0.7 Eos # (Auto) 0.0 Baso # (Auto) 0.0 Abs Immat Gran (auto) 0.07 H Absolute Neuts (auto) 6.1 Absolute Nucleated RBC 0.000 Nucleated RBC % (auto) 0.0 PT 10.9 INR 1.0 D-Dimer High Sensitivty 246 VBG pH VBG pCO2 VBG pO2 VBG HCO3 VBG O2 Saturation VBG Base Excess Sodium Potassium Chloride Carbon Dioxide Anion Gap BUN Creatinine Estim Creat Clear Calc Estimated GFR Random Glucose Calcium Troponin I High Sens < 3.5 B-Natriuretic Peptide Urine Color Urine Appearance Urine pH Ur Specific [place] Urine Protein Urine Glucose (UA) Urine Ketones Urine Blood Urine Nitrite Ur Leukocyte Esterase COVID-19 (SEAN) COVID-19 Clin Com 12/22/21 12/22/21 12/22/21 18:47 21:09 23:25 WBC RBC Hgb Hct MCV MCH MCHC RDW Plt Count MPV Immature Gran % (Auto) Neut % (Auto) Lymph % (Auto) [place] % (Auto) Eos % (Auto) Baso % (Auto) Lymph # (Auto) [place] # (Auto) Eos # (Auto) Baso # (Auto) Abs Immat Gran (auto) Absolute Neuts (auto) Absolute Nucleated RBC Nucleated RBC % (auto) PT INR D-Dimer High Sensitivty VBG pH VBG pCO2 VBG pO2 VBG HCO3 VBG O2 Saturation VBG Base Excess Sodium Potassium Chloride Carbon Dioxide Anion Gap BUN Creatinine Estim Creat Clear Calc Estimated GFR Random Glucose Calcium Troponin I High Sens B-Natriuretic Peptide 48 Urine Color Yellow Urine Appearance Clear Urine pH 8.0 Ur Specific [place] 1.010 Urine Protein Trace Urine Glucose (UA) Negative Urine Ketones 80 Urine Blood Negative Urine Nitrite Negative Ur Leukocyte Esterase Negative COVID-19 (SEAN) Negative COVID-19 Clin Com See Note 12/22/21 12/23/21 12/23/21 23:27 05:29 05:29 WBC 4.5 L RBC 4.22 Hgb 11.4 L Hct 36.0 L MCV 85.3 MCH 27.0 MCHC 31.7 RDW 14.0 Plt Count 310 MPV 9.5 Immature Gran % (Auto) 0.4 Neut % (Auto) 83.9 H Lymph % (Auto) 11.2 L [place] % (Auto) 4.3 Eos % (Auto) 0.0 Baso % (Auto) 0.2 Lymph # (Auto) 0.5 L [place] # (Auto) 0.2 Eos # (Auto) 0.0 Baso # (Auto) 0.0 Abs Immat Gran (auto) 0.02 Absolute Neuts (auto) 3.8 Absolute Nucleated RBC 0.000 Nucleated RBC % (auto) 0.0 PT INR D-Dimer High Sensitivty VBG pH 7.47 H VBG pCO2 41 VBG pO2 63 VBG HCO3 30 H VBG O2 Saturation 92.0 VBG Base Excess 6.2 Sodium 141 Potassium 3.3 Chloride 98 Carbon Dioxide 30 H Anion Gap 16 BUN 9 Creatinine 0.60 Estim Creat Clear Calc 75.1 Estimated GFR > 60 Random Glucose 167 H Calcium 9.0 D Troponin I High Sens B-Natriuretic Peptide Urine Color Urine Appearance Urine pH Ur Specific [place] Urine Protein Urine Glucose (UA) Urine Ketones Urine Blood Urine Nitrite Ur Leukocyte Esterase COVID-19 (SEAN) COVID-19 Clin Com Imaging Radiology Impressions: ITS Impressions Chest X-Ray 12/22/21 18:31 IMPRESSION: 1. No acute intrathoracic disease. 2. Nodular opacity right mid lung. Malignancy must be considered in the differential diagnosis. Contrast-enhanced CT scan of the chest may be useful for further evaluation Chest CTA 12/23/21 00:00 IMPRESSION: 1. No evidence of pulmonary emboli. 2. Loculated fluid collection in the minor fissure on the right accounts for the opacity seen on the chest radiograph. 3. Underlying COPD VTE: negative Mental Status Exam Mental Status Exam Narrative: A&O. In hospital attire, unkempt. Good eye contact, attentive. No Tics or Tremors. No abnormal involuntary movements. Calm, cooperative, engaged. Non- pressured speech, spontaneous with regular rate and rhythm, normal volume and prosody. No prolonged speech latency or dysarthria. Mood is ?tired,? affect is euthymic. Denies SI/SIB/HI upon inquiry. Endorses AH, denies VH. Has samaritan delusional thought content. Thoughts are preoccupied with her delusions. No known cognitive or memory impairment. Insight/ Judgment poor. Medications Medications Current Medications Acetaminophen (Acetaminophen 325 Mg Tablet) 650 mg PO Q6H PRN PRN Reason: Pain, Mild (Pain Scale 1-3) Acetaminophen/Butalbital/Caffeine (Butalb/Acetamin/Caff 50/325/40 Tablet) 1 tab PO Q12H PRN PRN Reason: Headache Last Admin: 12/24/21 13:58 Dose: 1 tab Albuterol/Ipratropium (Albuterol/Iprat 2.5/0.5mg 3 Ml Ampul.Neb) 3 ml INHALE RQ4H PRN PRN Reason: Shortness of Breath Albuterol/Ipratropium (Albuterol/Iprat 2.5/0.5mg 3 Ml Ampul.Neb) 3 ml INHALE RQ4H WHILE AWAKE [facility] Last Admin: 12/24/21 15:10 Dose: Not Given Diltiazem HCl (Diltiazem Hcl Cd 180 Mg Cap.Er.24h) 360 mg PO DAILY [facility]; Protocol Last Admin: 12/24/21 08:33 Dose: Not Given Docusate Sodium (Docusate Sodium 100 Mg Capsule) 100 mg PO DAILY PRN PRN Reason: Constipation Enoxaparin Sodium (Enoxaparin Sodium 40 Mg/0.4 Ml Syringe) 40 mg SUBCUT BEDTIME [facility] Last Admin: 12/23/21 21:24 Dose: 40 mg Hydralazine HCl (Hydralazine Hcl 20 Mg/Ml Vial) 10 mg IVPUSH Q4H PRN; Protocol PRN Reason: htn Ceftriaxone Sodium 1 gm/ (Sodium Chloride) 50 mls @ 100 mls/hr IV Q24H [facility] Last Infusion: 12/24/21 14:56 Dose: Infused Lidocaine (Lidocaine 4 % Patch Adh..Patch) 1 patch TRANSDERMA DAILY [facility]; Protocol Last Admin: 12/24/21 08:33 Dose: Not Given Lorazepam (Lorazepam 1 Mg Tablet) 2 mg PO Q6H [facility] Last Admin: 12/24/21 17:24 Dose: Not Given Meclizine HCl (Meclizine Hcl 25 Mg Tablet) 25 mg PO TID PRN PRN Reason: dizziness Ondansetron HCl (Ondansetron Hcl 4 Mg/2 Ml Vial) 4 mg IVPUSH Q8H PRN PRN Reason: Nausea and Vomiting Sodium Chloride (0.9 % Sodium Chloride Flush 3 Ml Syringe) 3 ml IVFLUSH QSHIFT [facility] Last Admin: 12/24/21 17:24 Dose: 3 ml Allergies Allergies Allergy/AdvReac Type Severity Reaction Status Date / Time morphine [MORPHINE] Allergy Severe HIVES, Verified 11/19/21 01:59 high temp, nausea tramadol [TRAMADOL] Allergy Severe SWEATING, Verified 11/19/21 01:59 VOMITING, vomiting amoxicillin [From AUGMENTIN] AdvReac Severe CONSTIPATIO Verified 11/19/21 01:59 N clavulanic acid AdvReac Severe CONSTIPATIO Verified 11/19/21 01:59 [From AUGMENTIN] N codeine [CODEINE] AdvReac Severe NAUSEA Verified 11/19/21 01:59 levofloxacin [From LEVAQUIN] AdvReac Severe CONSTIPATIO Verified 11/19/21 01:59 N Sulfa(Sulfonamide Allergy Unknown Unknown Uncoded 10/04/20 22:39 Antibiotics) Assessment & Plan Assessment & Plan (1) Delusion: Status: Acute Code(s): F22 - Delusional disorders Plan Will start Seroquel 50 mg with repeat dose to target poor sleep, agitation, and may help with delusional thought process, although likely will need to be titrated up. Will add Seroquel 25 mg Q6H PRN for agitation. At this time, pt does not meet criteria for psych admission, would not be voluntary. If pt refuse s care, it would be appropriate to invoke HCP due to lack of capacity, as she appears to refuse care impulsively and based on agitation rather than rational thought process without understanding the imminent risks to her health. Thank you for this consultation. If you have any questions or concerns, please do not hesitate to contact psychiatry service. I spent minutes with the patient and/or on the patient floor today, greater than?50% of which was spent counseling/coordinating care. Patient educated on: diagnosis, medication risk/benefits and therapeutic strategies
[2021-12-24 19:44] VITALS: BP 140/82; PULSE 96; RESP 18; TEMP 36.7; O2SAT 99
[2021-12-24] MEDS: QUEtiapine Fumarate 50 MG TABLET PO (20:08)
[2021-12-24] MEDS: Enoxaparin Sodium 40 MG/0.4 ML SYRINGE SUBCUT (20:08)
[2021-12-24 23:51] VITALS: BP 148/68; PULSE 88; RESP 18; TEMP 36.9; O2SAT 98
[2021-12-25] VITALS (8 sets, daily range): BP systolic 104–145; BP diastolic 59–77; PULSE 90–113; RESP 18–20; TEMP 36.6–37.1; O2SAT 90–100
[2021-12-25] MEDS: LORazepam 1 MG TABLET 2 MG PO ×3 (06:06→17:50)
[2021-12-25] MEDS: Acetaminophen 325 MG TABLET 650 MG PO ×2 (08:17→20:15)
[2021-12-25] MEDS: 0.9 % Sodium Chloride Flush 3 ML SYRINGE IVFLUSH ×3 (08:18→20:16)
[2021-12-25] MEDS: Butalb/Acetamin/Caff 50/325/40 TABLET 1 TAB PO ×2 (08:19→17:50)
[2021-12-25] MEDS: Lidocaine 4 % Patch ADH..PATCH 1 PATCH TRANSDERMA (08:19)
[2021-12-25] MEDS: dilTIAZem HCL CD 180 MG CAP.ER.24H 360 MG PO (08:20)
[2021-12-25] MEDS: Albuterol/Iprat 2.5/0.5MG 3 ML AMPUL.NEB INHALE ×3 (08:21→20:11)
[2021-12-25] MEDS: QUEtiapine Fumarate 25 MG TABLET PO ×2 (08:30→20:16)
[2021-12-25] MEDS: cefTRIAXone sodium 1 GM in 0.9 % Sodium Chloride 50 ML IV (12:07)
[2021-12-25] MEDS: polyethylene glycoL 3350 17 GM POWD.PACK PO (12:11)
[2021-12-25 14:49] LABS: Venous Blood Gas Refer to POC result
[2021-12-25 14:52] LABS: VBG Base Excess 10.3 mmol/L; VBG HCO3 35 mmol/L (22-26); VBG pCO2 50 mmHg; VBG pH 7.45 (7.32-7.43); VBG pO2 160 mmHg
--- NOTE | 2021-12-25 15:21 | HO.PM.IMPN ---
Subjective Subjective Date of Service: 12/25/21 Interval History: acute COPD exacerbation,? Possible lung abscess,?, anxiety Review of Systems less agiatted more adaptive to treatment answers most questions no fever or chills has productive cough Physical Exam Vital Signs: Vital Signs: Last Vital Signs Temp 97.9 F 12/25/21 12:00 Pulse 110 H 12/25/21 12:08 Resp 18 12/25/21 12:08 BP 104/59 L 12/25/21 12:00 Pulse Ox 100 12/25/21 12:00 O2 Del Method 12/25/21 12:00 O2 Flow Rate 5 12/25/21 12:00 Oxygen Flow Rate 5 12/22/21 17:05 BMI result Body Mass Index 27.8 Appearance: awake alert x3.? cvs: rrr, [id number] . res:air entry diminshed ,has wheezing abd: no rebound or guarding ,nt, bs present. ext pulses present , no cyanosis . neuro: awake,moves all ext,motor gross intact psych: more appropriate. Objective Data Active Medications Acetaminophen (Acetaminophen 325 Mg Tablet) 650 mg PO Q6H PRN PRN Reason: Pain, Mild (Pain Scale 1-3) Last Admin: 12/25/21 08:17 Dose: 650 mg Documented By: EILEEN Acetaminophen/Butalbital/Caffeine (Butalb/Acetamin/Caff 50/325/40 Tablet) 1 tab PO Q12H PRN PRN Reason: Headache Last Admin: 12/25/21 08:19 Dose: 1 tab Documented By: EILEEN Albuterol/Ipratropium (Albuterol/Iprat 2.5/0.5mg 3 Ml Ampul.Neb) 3 ml INHALE RQ4H PRN PRN Reason: Shortness of Breath Albuterol/Ipratropium (Albuterol/Iprat 2.5/0.5mg 3 Ml Ampul.Neb) 3 ml INHALE RQ4H WHILE AWAKE [facility] Last Admin: 12/25/21 12:11 Dose: 3 ml Documented By: TOBY Diltiazem HCl (Diltiazem Hcl Cd 180 Mg Cap.Er.24h) 360 mg PO DAILY [facility]; Protocol Last Admin: 12/25/21 08:20 Dose: 360 mg Documented By: EILEEN Docusate Sodium (Docusate Sodium 100 Mg Capsule) 100 mg PO DAILY PRN PRN Reason: Constipation Enoxaparin Sodium (Enoxaparin Sodium 40 Mg/0.4 Ml Syringe) 40 mg SUBCUT BEDTIME [facility] Last Admin: 12/24/21 20:08 Dose: 40 mg Documented By: ANTOIC Hydralazine HCl (Hydralazine Hcl 20 Mg/Ml Vial) 10 mg IVPUSH Q4H PRN; Protocol PRN Reason: htn Ceftriaxone Sodium 1 gm/ (Sodium Chloride) 50 mls @ 100 mls/hr IV Q24H [facility] Last Infusion: 12/25/21 14:14 Dose: 0 mls/hr Documented By: EILEEN Lidocaine (Lidocaine 4 % Patch Adh..Patch) 1 patch TRANSDERMA DAILY [facility]; Protocol Last Admin: 12/25/21 08:19 Dose: 1 patch Documented By: EILEEN Lorazepam (Lorazepam 1 Mg Tablet) 2 mg PO Q6H [facility] Last Admin: 12/25/21 13:11 Dose: 2 mg Documented By: EILEEN Meclizine HCl (Meclizine Hcl 25 Mg Tablet) 25 mg PO TID PRN PRN Reason: dizziness Ondansetron HCl (Ondansetron Hcl 4 Mg/2 Ml Vial) 4 mg IVPUSH Q8H PRN PRN Reason: Nausea and Vomiting Polyethylene Glycol (Polyethylene Glycol 3350 17 Gm Powd.Pack) 17 gm PO DAILY [facility] Last Admin: 12/25/21 12:11 Dose: 17 gm Documented By: EILEEN Quetiapine Fumarate (Quetiapine Fumarate 50 Mg Tablet) 50 mg PO BEDTIME MRX1 [facility] Last Admin: 12/24/21 21:43 Dose: Not Given Documented By: ANTOIC Non-Admin Reason: Patient Asleep Quetiapine Fumarate (Quetiapine Fumarate 25 Mg Tablet) 25 mg PO Q6H PRN PRN Reason: agitation Last Admin: 12/25/21 08:30 Dose: 25 mg Documented By: EILEEN Sodium Chloride (0.9 % Sodium Chloride Flush 3 Ml Syringe) 3 ml IVFLUSH QSHIFT [facility] Last Admin: 12/25/21 08:18 Dose: 3 ml Documented By: EILEEN Labs CBC & Chem 7: 12/23/21 05:29 12/23/21 05:29 Labs: Laboratory Results - last 24 hr 12/25/21 14:46 VBG pH 7.45 H VBG pCO2 50 VBG pO2 160 VBG HCO3 35 H VBG O2 Saturation 100.0 VBG Base Excess 10.3 Microbiology Microbiology Results: Microbiology 12/23/21 13:06 Blood Culture - Preliminary Blood - Venous No growth after 24 hours. 12/23/21 13:06 Blood Culture - Preliminary Blood - Venous No growth after 24 hours. Assessment and Plan (1) Acute and chronic respiratory failure with hypoxia: Status: Acute (2) Pulmonary abscess: Status: Acute (3) Anxiety: Status: Acute (4) Delusion: Status: Acute Plan 66-year-old female with past medical history of COPD on chronic O2 2 L baseline presents to the hospital with complaints of shortness of breath, cough and sputum production. # Acute hypoxemic respiratory failure secondary toacute COPD exacerbation /possible lung abscess - no evidence of pneumonia, although has a loculated fluid collection in the chest. seen by pulmonology to evaluate for this loculated fluid collection:- max Hawley ,added iv ceftriaxone day3. abg noted -ph compensated - titrate oxygen down to baseline with a goal of O2 between 88-92% given her underlying COPD. # hypertension - stable - continue diltiazem # history of anxiety seems anxiety improvin continue ativan , will hold seroquel causing sleepiness adjusted night seroquel dose . DVT prophylaxis:? Lovenox ongoing inpatient need:Acute hypoxemic respiratory failure secondary toacute COPD exacerbation /possible lung abscess- needs nebs, IV steroids, IV antibiotics, also has severe anxiety -Need monitoring. Quality Stroke Does the patient have a stroke diagnosis?: No VTE Prior VTE?: No VTE Risk Level:: Medical - moderate - high VTE Device Contraindication: Treatment Not Indicated VTE Drug Contraindication: N/A - Med Ordered
[2021-12-25] MEDS: Enoxaparin Sodium 40 MG/0.4 ML SYRINGE SUBCUT (20:15)
[2021-12-26] VITALS (11 sets, daily range): BP systolic 123–178; BP diastolic 57–86; PULSE 86–106; RESP 16–22; TEMP 36.1–37.1; O2SAT 89–96
[2021-12-26] MEDS: Butalb/Acetamin/Caff 50/325/40 TABLET 1 TAB PO ×2 (02:04→22:12)
[2021-12-26] MEDS: LORazepam 1 MG TABLET 2 MG PO ×4 (03:15→23:48)
[2021-12-26] MEDS: dilTIAZem HCL CD 180 MG CAP.ER.24H 360 MG PO (07:40)
[2021-12-26] MEDS: Lidocaine 4 % Patch ADH..PATCH 1 PATCH TRANSDERMA (07:41)
[2021-12-26] MEDS: 0.9 % Sodium Chloride Flush 3 ML SYRINGE IVFLUSH ×2 (07:47→16:24)
[2021-12-26] MEDS: Albuterol/Iprat 2.5/0.5MG 3 ML AMPUL.NEB INHALE ×4 (07:56→22:59)
[2021-12-26] MEDS: cefTRIAXone sodium 1 GM in 0.9 % Sodium Chloride 50 ML IV (11:07)
[2021-12-26] MEDS: Acetaminophen 325 MG TABLET 650 MG PO ×2 (11:11→21:47)
--- NOTE | 2021-12-26 12:51 | P.PNIM_ITS ---
Subjective Subjective Date of Service: 12/26/21 Interval History: acute COPD exacerbation,? Possible lung abscess,?, anxiety Review of Systems shortness of breath seems somewhat better still feels short of breath with minimal exertion. Has yellowish cough denies any fever or chills or nausea or vomiting Physical Exam Vital Signs: Vital Signs: Last Vital Signs Temp 98.5 F 12/26/21 12:00 Pulse 99 12/26/21 12:05 Resp 18 12/26/21 12:05 BP 146/73 H 12/26/21 12:00 Pulse Ox 93 12/26/21 12:00 O2 Del Method 12/26/21 12:00 O2 Flow Rate 3 12/26/21 12:00 Oxygen Flow Rate 5 12/22/21 17:05 BMI result Body Mass Index 27.8 Appearance: awake alert x3.? cvs: rrr, [id number] . res:air entry diminshed ,has wheezing abd: no rebound or guarding ,nt, bs present. ext pulses present , no cyanosis . neuro: awake,moves all ext,motor gross intact psych: more appropriate. Objective Data Active Medications Acetaminophen (Acetaminophen 325 Mg Tablet) 650 mg PO Q6H PRN PRN Reason: Pain, Mild (Pain Scale 1-3) Last Admin: 12/26/21 11:11 Dose: 650 mg Documented By: CTORRMira Acetaminophen/Butalbital/Caffeine (Butalb/Acetamin/Caff 50/325/40 Tablet) 1 tab PO Q12H PRN PRN Reason: Headache Last Admin: 12/26/21 02:04 Dose: 1 tab Documented By: ANTOIC Albuterol/Ipratropium (Albuterol/Iprat 2.5/0.5mg 3 Ml Ampul.Neb) 3 ml INHALE RQ4H PRN PRN Reason: Shortness of Breath Albuterol/Ipratropium (Albuterol/Iprat 2.5/0.5mg 3 Ml Ampul.Neb) 3 ml INHALE RQ4H WHILE AWAKE [facility] Last Admin: 12/26/21 12:05 Dose: 3 ml Documented By: GERALDRICNatasha Diltiazem HCl (Diltiazem Hcl Cd 180 Mg Cap.Er.24h) 360 mg PO DAILY [facility]; Protocol Last Admin: 12/26/21 07:40 Dose: 360 mg Documented By: EILEEN Docusate Sodium (Docusate Sodium 100 Mg Capsule) 100 mg PO DAILY PRN PRN Reason: Constipation Enoxaparin Sodium (Enoxaparin Sodium 40 Mg/0.4 Ml Syringe) 40 mg SUBCUT BEDTIME [facility] Last Admin: 12/25/21 20:15 Dose: 40 mg Documented By: ANTOIC Hydralazine HCl (Hydralazine Hcl 20 Mg/Ml Vial) 10 mg IVPUSH Q4H PRN; Protocol PRN Reason: htn Ceftriaxone Sodium 1 gm/ (Sodium Chloride) 50 mls @ 100 mls/hr IV Q24H [facility] Last Infusion: 12/26/21 11:49 Dose: 0 mls/hr Documented By: EILEEN Lidocaine (Lidocaine 4 % Patch Adh..Patch) 1 patch TRANSDERMA DAILY [facility]; Protocol Last Admin: 12/26/21 07:41 Dose: 1 patch Documented By: EILEEN Lorazepam (Lorazepam 1 Mg Tablet) 2 mg PO Q6H [facility] Last Admin: 12/26/21 11:07 Dose: 2 mg Documented By: EILEEN Meclizine HCl (Meclizine Hcl 25 Mg Tablet) 25 mg PO TID PRN PRN Reason: dizziness Ondansetron HCl (Ondansetron Hcl 4 Mg/2 Ml Vial) 4 mg IVPUSH Q8H PRN PRN Reason: Nausea and Vomiting Polyethylene Glycol (Polyethylene Glycol 3350 17 Gm Powd.Pack) 17 gm PO DAILY [facility] Last Admin: 12/26/21 07:46 Dose: Not Given Documented By: EILEEN Non-Admin Reason: Patient Refused Quetiapine Fumarate (Quetiapine Fumarate 25 Mg Tablet) 25 mg PO Q6H PRN PRN Reason: agitation Last Admin: 12/25/21 08:30 Dose: 25 mg Documented By: EILEEN Quetiapine Fumarate (Quetiapine Fumarate 25 Mg Tablet) 25 mg PO BEDTIME MRX1 [facility] Last Admin: 12/25/21 21:04 Dose: Not Given Documented By: KIRILL Non-Admin Reason: Patient Asleep Sodium Chloride (0.9 % Sodium Chloride Flush 3 Ml Syringe) 3 ml IVFLUSH QSHIFT [facility] Last Admin: 12/26/21 07:47 Dose: 3 ml Documented By: EILEEN Labs CBC & Chem 7: 12/23/21 05:29 12/23/21 05:29 Labs: Laboratory Results - last 24 hr 12/25/21 14:46 VBG pH 7.45 H VBG pCO2 50 VBG pO2 160 VBG HCO3 35 H VBG O2 Saturation 100.0 VBG Base Excess 10.3 Microbiology Microbiology Results: Microbiology 12/23/21 13:06 Blood Culture - Preliminary Blood - Venous No growth after 48 hours. 12/23/21 13:06 Blood Culture - Preliminary Blood - Venous No growth after 48 hours. Assessment and Plan (1) Acute and chronic respiratory failure with hypoxia: Status: Acute (2) Pulmonary abscess: Status: Acute (3) Anxiety: Status: Acute (4) Delusion: Status: Acute Plan 66-year-old female with past medical history of COPD on chronic O2 2 L baseline presents to the hospital with complaints of shortness of breath, cough and sputum production. # Acute hypoxemic respiratory failure secondary toacute COPD exacerbation /possible lung abscess - no evidence of pneumonia, although has a loculated fluid collection in the chest. seen by pulmonology to evaluate for this loculated fluid collection:- max Hawley ,added iv ceftriaxone day3. abg noted -ph compensated - titrate oxygen down to baseline with a goal of O2 between 88-92% given her underlying COPD. # hypertension - stable - continue diltiazem # history of anxiety seems anxiety improvin continue ativan , will hold seroquel causing sleepiness adjusted night seroquel dose . DVT prophylaxis:? Lovenox ongoing inpatient need:Acute hypoxemic respiratory failure secondary toacute COPD exacerbation /possible lung abscess- needs nebs, IV steroids, IV antibiotics, also has severe anxiety -Need monitoring. Quality Stroke Does the patient have a stroke diagnosis?: No VTE Prior VTE?: No VTE Risk Level:: Medical - moderate - high VTE Device Contraindication: Treatment Not Indicated VTE Drug Contraindication: N/A - Med Ordered
[2021-12-26] MEDS: QUEtiapine Fumarate 25 MG TABLET PO ×2 (13:56→21:48)
[2021-12-26] MEDS: Enoxaparin Sodium 40 MG/0.4 ML SYRINGE SUBCUT (21:48)
[2021-12-27] VITALS (12 sets, daily range): BP systolic 148–193; BP diastolic 62–98; PULSE 78–112; RESP 12–20; TEMP 36.7–37; O2SAT 90–98
[2021-12-27] MEDS: LORazepam 1 MG TABLET 2 MG PO ×3 (06:20→16:33)
[2021-12-27] MEDS: Albuterol/Iprat 2.5/0.5MG 3 ML AMPUL.NEB INHALE ×3 (07:24→19:15)
[2021-12-27] MEDS: Lidocaine 4 % Patch ADH..PATCH 1 PATCH TRANSDERMA (09:42)
[2021-12-27] MEDS: dilTIAZem HCL CD 180 MG CAP.ER.24H 360 MG PO (09:42)
[2021-12-27] MEDS: polyethylene glycoL 3350 17 GM POWD.PACK PO (09:42)
[2021-12-27] MEDS: 0.9 % Sodium Chloride Flush 3 ML SYRINGE IVFLUSH ×3 (09:43→16:34)
[2021-12-27] MEDS: Butalb/Acetamin/Caff 50/325/40 TABLET 1 TAB PO ×3 (10:15→21:09)
[2021-12-27] MEDS: cefTRIAXone sodium 1 GM in 0.9 % Sodium Chloride 50 ML IV (10:47)
--- NOTE | 2021-12-27 13:14 | MHC.CM.PN ---
CM met with Patient at bedside to discuss anticipated dc to home tomorrow. Patient indicated that she will not be returning to [facility] to live with her ; she is working with her Brother to find a new place to stay. Patient indicated that she will have her home O2 set up (through [employer] in [place]) transferred to her new location. Patient will require BLS transport to home. LIBBY has relayed this information to the MD and will continue to follow.
--- NOTE | 2021-12-27 14:11 | HO.PM.IMPN ---
Subjective Subjective Date of Service: 12/27/21 Interval History: acute COPD exacerbation,? Possible lung abscess,?, anxiety Review of Systems shortness of breath seems somewhat better still feels short of breath with minimal exertion. Has yellowish cough ?denies any fever or chills or nausea or vomiting Physical Exam Vital Signs: Vital Signs: Last Vital Signs Temp 98.3 F 12/27/21 11:47 Pulse 106 H 12/27/21 11:47 Resp 12 12/27/21 11:47 BP 164/73 H 12/27/21 07:58 Pulse Ox 93 12/27/21 11:47 O2 Del Method 12/27/21 11:47 O2 Flow Rate 3 12/27/21 06:17 Oxygen Flow Rate 5 12/22/21 17:05 BMI result Body Mass Index 27.8 Appearance: awake alert x3.? cvs: rrr, [id number] . res:air entry diminshed ,has wheezing abd: no rebound or guarding ,nt, bs present. ext pulses present , no cyanosis . neuro: awake,moves all ext,motor gross intact psych: more appropriate. Objective Data Active Medications Acetaminophen (Acetaminophen 325 Mg Tablet) 650 mg PO Q6H PRN PRN Reason: Pain, Mild (Pain Scale 1-3) Last Admin: 12/26/21 21:47 Dose: 650 mg Documented By: MINH Acetaminophen/Butalbital/Caffeine (Butalb/Acetamin/Caff 50/325/40 Tablet) 1 tab PO Q12H PRN PRN Reason: Headache Last Admin: 12/27/21 10:15 Dose: 1 tab Documented By: THOMAS Albuterol/Ipratropium (Albuterol/Iprat 2.5/0.5mg 3 Ml Ampul.Neb) 3 ml INHALE RQ4H PRN PRN Reason: Shortness of Breath Last Admin: 12/26/21 22:59 Dose: 3 ml Documented By: STACIA Albuterol/Ipratropium (Albuterol/Iprat 2.5/0.5mg 3 Ml Ampul.Neb) 3 ml INHALE RQ4H WHILE AWAKE [facility] Last Admin: 12/27/21 12:25 Dose: Not Given Documented By: FLORENCIO Non-Admin Reason: pt states has a headache and nauseaous Diltiazem HCl (Diltiazem Hcl Cd 180 Mg Cap.Er.24h) 360 mg PO DAILY [facility]; Protocol Last Admin: 12/27/21 09:42 Dose: 360 mg Documented By: THOMAS Docusate Sodium (Docusate Sodium 100 Mg Capsule) 100 mg PO DAILY PRN PRN Reason: Constipation Enoxaparin Sodium (Enoxaparin Sodium 40 Mg/0.4 Ml Syringe) 40 mg SUBCUT BEDTIME [facility] Last Admin: 12/26/21 21:48 Dose: 40 mg Documented By: MINH Hydralazine HCl (Hydralazine Hcl 20 Mg/Ml Vial) 10 mg IVPUSH Q4H PRN; Protocol PRN Reason: htn Ceftriaxone Sodium 1 gm/ (Sodium Chloride) 50 mls @ 100 mls/hr IV Q24H [facility] Last Infusion: 12/27/21 11:43 Dose: 0 mls/hr Documented By: THOMAS Lidocaine (Lidocaine 4 % Patch Adh..Patch) 1 patch TRANSDERMA DAILY [facility]; Protocol Last Admin: 12/27/21 09:42 Dose: 1 patch Documented By: THOMAS Lorazepam (Lorazepam 1 Mg Tablet) 2 mg PO Q6H [facility] Last Admin: 12/27/21 10:47 Dose: 2 mg Documented By: THOMAS Meclizine HCl (Meclizine Hcl 25 Mg Tablet) 25 mg PO TID PRN PRN Reason: dizziness Ondansetron HCl (Ondansetron Hcl 4 Mg/2 Ml Vial) 4 mg IVPUSH Q8H PRN PRN Reason: Nausea and Vomiting Polyethylene Glycol (Polyethylene Glycol 3350 17 Gm Powd.Pack) 17 gm PO DAILY [facility] Last Admin: 12/27/21 09:42 Dose: 17 gm Documented By: THOMAS Quetiapine Fumarate (Quetiapine Fumarate 25 Mg Tablet) 25 mg PO Q6H PRN PRN Reason: agitation Last Admin: 12/25/21 08:30 Dose: 25 mg Documented By: CHERIORRMira Quetiapine Fumarate (Quetiapine Fumarate 25 Mg Tablet) 25 mg PO BEDTIME MRX1 [facility] Last Admin: 12/27/21 00:23 Dose: Not Given Documented By: MINH Non-Admin Reason: Patient Asleep Sodium Chloride (0.9 % Sodium Chloride Flush 3 Ml Syringe) 3 ml IVFLUSH QSHIFT [facility] Last Admin: 12/27/21 09:43 Dose: 3 ml Documented By: THOMAS Labs CBC & Chem 7: 12/23/21 05:29 12/23/21 05:29 Assessment and Plan (1) Acute and chronic respiratory failure with hypoxia: Status: Acute (2) Pulmonary abscess: Status: Acute (3) COPD exacerbation: Status: Acute Plan 66-year-old female with past medical history of COPD on chronic O2 2 L baseline presents to the hospital with complaints of shortness of breath, cough and sputum production. # ? Acute hypoxemic respiratory failure secondary toacute COPD exacerbation /possible lung abscess - no evidence of pneumonia, although has a loculated fluid collection in the chest. seen by pulmonology to evaluate for this loculated fluid collection:-? DuoNebs,striods ,added iv ceftriaxone day3. abg noted -ph compensated - titrate oxygen down to baseline with a goal of O2 between 88-92% given her underlying COPD. # hypertension - stable - continue diltiazem # history of anxiety seems anxiety improvin continue ativan , will hold seroquel causing sleepiness adjusted night seroquel dose . DVT prophylaxis:? Lovenox ongoing inpatient need:Acute hypoxemic respiratory failure secondary toacute COPD exacerbation /possible lung abscess- needs nebs, IV steroids, IV antibiotics, ?also has severe anxiety -Need monitoring. Quality Stroke Does the patient have a stroke diagnosis?: No VTE Prior VTE?: No VTE Risk Level:: Medical - moderate - high VTE Device Contraindication: Treatment Not Indicated VTE Drug Contraindication: N/A - Med Ordered
[2021-12-27] MEDS: hydrALAZINE HCl 20 MG/ML VIAL 10 MG IVPUSH (16:33)
[2021-12-27] MEDS: hydroCHLOROthiazide 12.5 MG TABLET PO (16:36)
[2021-12-27] MEDS: QUEtiapine Fumarate 25 MG TABLET PO (21:09)
[2021-12-27] MEDS: Enoxaparin Sodium 40 MG/0.4 ML SYRINGE SUBCUT (21:09)
[2021-12-28] VITALS: BP 148/70; PULSE 101; RESP 18; TEMP 36.4; O2SAT 100
[2021-12-28] MEDS: LORazepam 1 MG TABLET 2 MG PO ×3 (01:27→11:01)
[2021-12-28] MEDS: 0.9 % Sodium Chloride Flush 3 ML SYRINGE IVFLUSH ×2 (01:28→09:56)
[2021-12-28] MEDS: Acetaminophen 325 MG TABLET 650 MG PO (01:33)
[2021-12-28 03:07] VITALS: BP 144/76; PULSE 103; RESP 17; TEMP 36.4; O2SAT 93
[2021-12-28] MEDS: oxyCODONE HCl Immed Release 5 MG TABLET PO (05:49)
[2021-12-28 07:38] VITALS: BP 143/65; PULSE 103; RESP 18; TEMP 36.2; O2SAT 98
[2021-12-28 09:36] VITALS: BP 143/65; PULSE 103; O2SAT 98
[2021-12-28] MEDS: Lidocaine 4 % Patch ADH..PATCH 1 PATCH TRANSDERMA (09:54)
[2021-12-28] MEDS: dilTIAZem HCL CD 180 MG CAP.ER.24H 360 MG PO (09:54)
[2021-12-28] MEDS: cefTRIAXone sodium 1 GM in 0.9 % Sodium Chloride 50 ML IV (09:55)
[2021-12-28] MEDS: hydroCHLOROthiazide 12.5 MG TABLET PO (09:56)
--- NOTE | 2021-12-28 09:59 | MHC.CM.PN ---
Per MD, Patient will be medically cleared for dc to home today with VNA (RN). A referral was made to [facility], who has been notified of today's dc. Patient will dc to home today (she has decided to return to her same address with her ),at 11AM, via [facility]. IMM addressed with Patient yesterday.
--- NOTE | 2021-12-28 10:59 | P.F2F_ITS ---
Service Date Service Date: 12/28/21 Encounter Date of encounter: 12/28/21 Encounter: acute COPD exacerbation,? Possible lung abscess,?, anxiety Reasons for Services Signs and symptoms assessed: Monitor for respiratory issues including shortness of breath cough or fever Reason for residential: medication management, medication treatment and teach disease management MD Overseeing Care: Priscila Sesay Homebound: Leaving the home is medically contraindicated at this time without the asist of a device and/or another person due th the listed conditions above and below. Reason homebound: weakness related to hospital stay Homebound supporting statement: patient has multiple comorbidities including respiratory failure, COPD, possible lung abscess, also is generally weak post hospitalization need help to go to appointments as well as blood draws(labs) Because on po antibiotics. Certification: Based on the above findings, I certify that this patient is confined to the home and needs intermittent residential care, physical therapy and/or speech therapy, or continues to need occupational therapy. The patient is under my care, and I have initiated the establishment of the plan of care. The patient will be followed by a physician who will periodically review the plan of care.
[2021-12-28] MEDS: Butalb/Acetamin/Caff 50/325/40 TABLET 1 TAB PO (11:00)
--- NOTE | 2021-12-28 11:04 | PM.DS ---
DS: Providers Provider Date of Service: 12/28/21 Date of admission: 12/23/21 00:52 Primary care physician: Mickey Guaman MD Consults: 12/23/21 04:58 Consult to Pulmonology Routine Consulting Provider: Mary Aldridge Reason for consultation: loculated fluid in lungs Has provider been notified: No 12/23/21 10:38 Consult to Care Team Routine Comment: Reason for consultation: anxiety 12/24/21 08:56 Consult to Psychiatry Stat Consulting Provider: Psych Covering Reason for consultation: deluisional/hallucinatin-refusing treatment Has provider been notified: No DS: Diagnosis Discharge Diagnosis (1) Acute and chronic respiratory failure with hypoxia: Status: Acute (2) Pulmonary abscess: Status: Acute (3) COPD exacerbation: Status: Acute (4) Delusion: Status: Acute (5) Anxiety: Status: Acute DS: Summary Hospital Course Hospital Course: 66-year-old female with past medical history of recurrent hospital admissions for COPD exacerbations, chronic respiratory failure on on baseline 2 L of oxygen, HTN, prior COVID infection in August of this year anxiety on chronic Ativan, presents to the hospital with complaints of shortness of breath, cough, sputum production for the past 1 day.? Patient denies any fever or chills, no chest pain, no abdominal pain nausea or vomiting, no diarrhea or constipation talk no urinary symptoms and no lower extremity edema.? No orthopnea or PND On arrival to the ED patient hemodynamically stable was placed on 5 L of nasal cannula by EMS due to reported hypoxia.? Patient is currently on 5 L satting 94-96% Labs are remarkable for WBC count of 4.5, pH of 7.47, no CO2 retention, otherwise unremarkable CT angiogram of the chest is negative for PE, showed loculated fluid collection in the minor fissure on the right with underlying COPD. Hopsital course: Patient was admitted for acute hypoxemic respiratory failure secondary to COPD exacerbation, also on chest imaging found to have small localized collection possible mild abscess are seen by Pulmonary patient was treated but with nebs, steroids, IV antibiotics- seems to be improved , Pulmonary recommended 4 weeks of p.o. antibiotics, please repeat chest imaging outpatient in 3-4 weeks to see resolution of abscess . If any new shortness of breath or fever or any other new symptoms go to nearest emergency room for further evaluation. Patient has anxiety episode due to possible use of steroids, acute hospital stay: Which responded well initially to Seroquel as needed and improved, discussed with the psych: continue current home medications including lorazepam, follow-up outpatient psych. Monitor CBC BMP, LFT Q weekly while on antibiotics Outpatient. Patient is going home with VNA. assessment and plan discussed with the patient in detail and she understand in agreement with the plan, time spent 50 minute. Time Spent with Patient Time attestation: Total time spent providing and/or coordinating discharge services: Discharge coordination time: Greater than 30 minutes Quality: Safe Use of Opioids Does Pt have an Active Cancer Diagnosis on the Problem List?: No Quality: Stroke Does the patient have a stroke diagnosis?: No Physical Exam Vital Signs: Vital Signs: Last Vital Signs Temp 97.1 F 12/28/21 07:38 Pulse 103 H 12/28/21 09:36 Resp 18 12/28/21 07:38 BP 143/65 H 12/28/21 09:36 Pulse Ox 98 12/28/21 09:36 O2 Del Method 12/28/21 07:38 O2 Flow Rate 3 12/28/21 07:38 Oxygen Flow Rate 5 12/22/21 17:05 BMI result Body Mass Index 27.8 Appearance: awake alert x3.? cvs: rrr, [id number] . res:air entry fair,no rales or wheezing abd: no rebound or guarding ,nt, bs present. ext pulses present , no cyanosis . neuro: awake,moves all ext,motor gross intact psych: more appropriate. DS: Data Data Completed and Pending Labs on day of discharge: Preliminary micro results at discharge 12/23/21 13:06 Blood Culture - Preliminary Blood - Venous No growth after 48 hours. 12/23/21 13:06 Blood Culture - Preliminary Blood - Venous No growth after 48 hours. Imaging Chest x-ray: Radiologist's impression: ITS Impressions Chest X-Ray 12/22/21 18:31 IMPRESSION: 1. No acute intrathoracic disease. 2. Nodular opacity right mid lung. Malignancy must be considered in the differential diagnosis. Contrast-enhanced CT scan of the chest may be useful for further evaluation Chest CTA 12/23/21 00:00 IMPRESSION: 1. No evidence of pulmonary emboli. 2. Loculated fluid collection in the minor fissure on the right accounts for the opacity seen on the chest radiograph. 3. Underlying COPD VTE: negative Discharge Plan Discharge Anticipated Discharge Date/Time: 12/28/21 10:09 Patient Disposition: Home Health Service Discharge Diagnosis: COPD exacerbation, possible small lung abscess, anxiety. Referrals: Charles ROSEN [Outside] - 1 Week Name,MD Mickey [Primary Care Provider] - 1 Week Discharge Medications: New cefpodoxime 200 mg tablet 200 mg PO BID Qty: 56 0RF Rx Instructions: must administer with a meal/food Continued albuterol sulfate 2.5 mg /3 mL (0.083 %) solution for nebulization 1 vial inhalation 6XD [id number]-cfyd 50-325-40 mg tablet 1 tab PO Q12H PRN (Reason: Headache) ipratropium bromide 0.02 % solution 2.5 ml inhalation Q6H PRN (Reason: wheezing) meclizine 25 mg tablet 25 mg PO TID PRN (Reason: dizziness) Qty: 14 0RF diltiazem HCl 360 mg capsule,extended release 24 hr 1 cap PO DAILY lorazepam 2 mg tablet 1 tab PO Q6H PRN (Reason: anxiety) fluticasone propion-salmeterol [Wixela Inhub] 250-50 mcg/dose blister with device 1 puff inhalation BID Discharge Orders: Discharge Order (Routine); Ordered 12/28/21 Ordered By: Fang Joshua Diet: Advance to usual diet Activity on Discharge: As tolerated Stand Alone Forms: Patient Portal Discharge page Other Ambulatory Orders: Basic Metabolic Panel (Routine) Timeframe: 1 Week Facility: [facility] - Location: Laboratory Ordered By: Fang Joshua Complete Blood Count no Diff (Routine) Timeframe: 1 Week Facility: [facility] - Location: Laboratory Ordered By: Fang Joshua Liver Panel (Routine) Timeframe: 1 Week Facility: [facility] - Location: Laboratory Ordered By: Fang Joshua Care Plan Goals: Patient was admitted for acute hypoxemic respiratory failure secondary to COPD exacerbation, also on chest imaging found to have small localized collection possible mild abscess are seen by Pulmonary patient was treated but with nebs, steroids, IV antibiotics- seems to be improved , Pulmonary recommended 3 weeks of p.o. antibiotics, please repeat chest imaging outpatient in 3-4 weeks to see resolution of abscess . If any new shortness of breath or fever or any other new symptoms go to nearest emergency room for further evaluation. Patient has anxiety episode due to possible use of steroids, acute hospital stay: Which responded well initially to Seroquel as needed and improved, discussed with the psych: continue current home medications including lorazepam, follow-up outpatient psych. Monitor CBC BMP, LFT Q weekly while on antibiotics Outpatient. Patient is going home with VNA. Health Concerns: as above. Plan of Treatment: As above. Assessment: As above.
[2021-12-28 11:15] VITALS: BP 138/88; PULSE 120; RESP 20; TEMP 37.1; O2SAT 95
== END 2021-12-28 11:30 | disposition home health service (06) | DRG 190 ==
LOC: HO.ED 12-23 00:43 → HO.EDOVER 12-23 01:04 → HO.IMC 12-23 08:33
PROVIDERS: Admitting Provider Internal Medicine; Emergency Provider Internal Medicine; PCP Internal Medicine Geriatric Medicine; Visit Provider Internal Medicine
DX: J43.9 Emphysema, unspecified (principal); J85.2 Abscess of lung without pneumonia; J96.21 Acute and chronic respiratory failure with hypoxia; F41.1 Generalized anxiety disorder; F22 Delusional disorders; I10 Essential (primary) hypertension; Z20.822 Contact with and (suspected) exposure to COVID-19; Z99.81 Dependence on supplemental oxygen; Z86.16 Personal history of COVID-19; Z88.0 Allergy status to penicillin; Z88.2 Allergy status to sulfonamides; Z88.5 Allergy status to narcotic agent; Z79.51 Long term (current) use of inhaled steroids; Z79.899 Other long term (current) drug therapy
CPT/HCPCS: 36415; 71045; 71275; 80048; 81003; 82803; 83880; 84484; 85025; 85379; 85610; 87040; 87635; 93005; 94640; 97162; 99285; J0696; J1650; J2920; J2930; Q9967

== ENCOUNTER 2022-01-08 01:41 | Inpatient (IN) | payer MEDICARE, SELFPAY ==
[2022-01-08] VITALS (7 sets, daily range): BP systolic 116–159; BP diastolic 55–78; PULSE 77–100; RESP 13–24; TEMP 36.7–36.8; O2SAT 95–100; BMI 26.9
--- NOTE | ~2022-01-08 | CT_ITS ---
EXAMINATION: CT ABDOMEN AND PELVIS WITHOUT CONTRAST CLINICAL INFORMATION: Right lower quadrant pain COMPARISON: 07/08/2021 TECHNIQUE: Multidetector volumetric imaging was performed from the superior aspect of the liver through the pubic symphysis. Sagittal and coronal reformatted images were obtained on the technologist's workstation. This CT examination was performed using dose optimization techniques as appropriate, variously including the following: *Automated exposure control *Adjustment of mA and/or kV according to patient size (this includes techniques or standardized protocols for targeted exams where dose is matched to indication/reason for exam; i.e. extremities or head) *Use of iterative reconstruction technique DLP: 458 mGy-cm FINDINGS: LUNG BASES: The visualized lung bases are unremarkable. LIVER, GALLBLADDER, AND BILIARY TREE: The liver is normal in size, shape, and attenuation. No focal hepatic lesion or biliary ductal dilatation is present. Multiple gallstones are present within a somewhat collapsed gallbladder. PANCREAS: Partial fatty atrophy noted. SPLEEN: Unremarkable. ADRENAL GLANDS: Unremarkable. KIDNEYS AND URETERS: The kidneys are normal in size, shape, and attenuation. Small right upper pole renal cyst; no follow-up recommended. No hydronephrosis, hydroureter, or calculi seen. No perinephric stranding. BLADDER: Unremarkable. GASTROINTESTINAL TRACT: Colonic diverticulosis is noted without diverticulitis. Moderate amount of stool is present. There are several mildly prominent fluid-filled small bowel loops in the right abdomen, and there appears to be a caliber change to more collapsed bowel in the vicinity of a suture line in the anterior mid abdomen, raising concern for developing bowel obstruction.. Appendix is not visualized, though no inflammatory changes are seen in its expected location to suggest appendicitis. No free fluid or free air is seen. ABDOMINAL WALL: No significant hernia is appreciated. LYMPH NODES: Normal. VASCULAR: Scattered atherosclerotic calcifications. PELVIC VISCERA: There are simple-appearing right adnexal cyst measuring up to 2.6 cm; no follow-up imaging recommended. OSSEOUS STRUCTURES: Mild scattered degenerative endplate changes in the spine. CT/CT abdomen pelvis wo IV con IMPRESSION: 1. Several mildly prominent fluid-filled small bowel loops in the right abdomen with a caliber change in the vicinity of a suture line in the anterior mid abdomen, raising concern for developing bowel obstruction. 2. Cholelithiasis.
[2022-01-08] MEDS: LORazepam 0.5 MG TABLET PO (03:32)
--- NOTE | 2022-01-08 04:04 | ED.ABDPAIN ---
HPI - Abdominal Pain General Chief Complaint: Abdominal Pain Stated Complaint: abd pain,sob Time Seen by Provider: 01/08/22 03:52 Source: patient Mode of arrival: EMS Limitations: no limitations History of Present Illness HPI narrative: 66-year-old female who presents emergency department for evaluation of right lower quadrant abdominal pain. The patient states that the pain started approximately 24 hours prior to coming to the emergency department. She describes the pain as a constant, stabbing sensation which is 8.5/10. She states that she did have nausea with no vomiting. She states that she had a normal bowel movement yesterday x2 but no bowel movement on the day of presentation. The patient states that she had diverticulitis in the past and required a colectomy and a colostomy which was eventually taken down. She denied fever but states she had occasional chills. She denied rhinorrhea, sore throat, cough, chest pain, shortness of breath, dyspnea on exertion. She did have nausea with no vomiting. She denied dark tarry stools or bloody stools. MD elicited complaint: abdominal pain Pertinent past history: diverticulitis (Partial colectomy secondary to diverticulitis, colostomy with reversal) Onset (ago): day(s) (2) Pain Consistency: constant Location: RLQ Severity: severe Pain scale (0-10): 85 Quality: stabbing Radiation: none Migration to: no migration Exacerbating factors: nothing Relieving factors: nothing Associated symptoms: nausea and chills Related Data Home Medications Medication Instructions Recorded Confirmed albuterol sulfate 2.5 mg/3 mL 1 vial inhalation 6XD 10/04/20 12/22/21 (0.083 %) solution for nebulization cuhpifdwty-nvtshdlwfcyia-pfuzyebh 1 tab PO Q12H PRN Headache 10/04/20 12/22/21 50 mg-325 mg-40 mg tablet diltiazem HCl 360 mg capsule,24 1 cap PO DAILY 07/08/21 12/22/21 hr,extended release lorazepam 2 mg tablet 1 tab PO Q6H PRN anxiety 07/08/21 12/22/21 ipratropium bromide 0.02 % 2.5 ml inhalation Q6H PRN wheezing 09/25/21 12/22/21 solution for inhalation fluticasone 250 mcg-salmeterol 50 1 puff inhalation BID 12/22/21 12/22/21 mcg/dose blistr powdr for inhalation (Romina Glass) Previous Rx's Medication Instructions Recorded meclizine 25 mg tablet 25 mg PO TID PRN dizziness #14 tabs 11/19/21 cefpodoxime 200 mg tablet 200 mg PO BID #56 tabs 12/28/21 Allergies Allergy/AdvReac Type Severity Reaction Status Date / Time morphine [MORPHINE] Allergy Severe HIVES, Verified 11/19/21 01:59 high temp, nausea tramadol [TRAMADOL] Allergy Severe SWEATING, Verified 11/19/21 01:59 VOMITING, vomiting Sulfa (Sulfonamide Allergy Unknown Verified 12/25/21 00:19 Antibiotics) amoxicillin [From AUGMENTIN] AdvReac Severe CONSTIPATIO Verified 11/19/21 01:59 N clavulanic acid AdvReac Severe CONSTIPATIO Verified 11/19/21 01:59 [From AUGMENTIN] N codeine [CODEINE] AdvReac Severe NAUSEA Verified 11/19/21 01:59 levofloxacin [From LEVAQUIN] AdvReac Severe CONSTIPATIO Verified 11/19/21 01:59 N Sulfa(Sulfonamide Allergy Unknown Unknown Uncoded 10/04/20 22:39 Antibiotics) Review of Systems Review of Systems Yes all other systems are reviewed and are negative [facility] Past Medical History [facility] Narrative: Social history: She denies tobacco use, she states she quit 16 years prior. She denies alcohol use. She occasionally smokes marijuana. Medical History Anxiety Asthma Bronchitis Chronic respiratory failure COPD (chronic obstructive pulmonary disease) Diverticulitis Dizziness Emphysema lung Hypertension Otitis media Vertigo Surgical History History of breast surgery History of laparotomy Family History Family History Other No family history of coronary artery disease Social History Social History Household Members: Spouse Housing: Other Housing Other:: room Do you presently have visiting nurse or other home services: No Alcohol intake: never Patient Tobacco Use Status: Never used Tobacco Smoked in Last 30 Days: No Use of substances other than those prescribed or required for medical reasons: No Substance Use Type: Marijuana Advance Directives: Yes Advance Directives on File: Yes Advance Directives Date on File: 07/09/21 service: No Current occupational status: disabled Physical Exam ED Vital Signs: Vital Signs - 24 hr 01/08/22 01:51 01/08/22 06:11 01/08/22 07:07 Temperature 98.3 F 98.1 F 98.0 F Pulse Rate 79 77 87 Respiratory Rate 22 H 13 24 H Blood Pressure 120/55 L 149/61 H 159/63 H Pulse Oximetry 100 99 95 Oxygen Delivery Method Nasal Cannula Nasal Cannula Nasal Cannula Oxygen Flow Rate 4 3 BMI result Body Mass Index 26.9 Const Other: Awake, alert, female patient, pleasant, cooperative she does appear to be in moderate distress secondary to her pain HENMT Head: Yes normal to inspection, Yes normocephalic and Yes atraumatic Ears: external ears normal General nose exam: Normal external nose present Face and sinus: Yes normal facial exam Mouth: Normal oral and palatal mucosa present Throat: Yes posterior oropharynx normal Eyes General: appearance normal, both eyes and all related structures Pupils: Equal, round and reactive pupils present Neck Neck: Yes normal visual inspection, Yes no lymphadenopathy, Yes trachea midline and Yes supple Chest Chest palpation & inspection: normal inspection of the chest and normal palpation of entire chest wall Resp Effort & Inspection: normal respiratory effort and able to speak in complete sentences Auscultation: clear to auscultation bilaterally Cardio Rate: regular rate Rhythm: regular rhythm Heart sounds: S1 normal heart sound present, S2 normal heart sound present and no murmurs GI Inspection: Yes normal to inspection Palpation (GI): Soft to palpation, Tenderness to palpation present (GI) in the RLQ (Moderate) and no guarding Auscultation: normal bowel sounds General: Yes no CVA tenderness Back/Spine/Pelvis Back: no CVA tenderness Skin General skin exam: no rashes or lesions noted Neuro Cranial nerves: Yes CN's II-XII intact bilaterally and Yes Equal, round and reactive pupils present Cognition (Neuro): normal cognition Motor exam (neuro): 5/5 motor strength present throughout Extrem General: Yes normal to inspection Psych Appearance: grossly normal Speech and movement: Normal speech and movement present Affect: normal affect Attitude: cooperative Thought process: Normal thought process present Thought content: Normal thought content present Course Course Course Narrative: 66-year-old female who presents emergency department for evaluation of constant, stabbing, right lower quadrant pain which was 8 out 10 at its worst, the pain is been present for 2 days. The patient had associated nausea with no vomiting. She had 2 normal bowel movements yesterday but no bowel movement on the day of arrival. The patient does have a history of diverticulitis with partial colectomy, colostomy with eventual reversal. Physical examination did reveal significant right lower quadrant tenderness otherwise was unremarkable. I ordered a laboratory evaluation CT scan of the abdomen pelvis without IV contrast. I did order morphine 4 mg IV, normal saline 1 L IV and Ativan 0.5 mg and then 2 mg orally. 0647: Laboratory evaluation: Anemia with an H&H of 11 and 36.8. Elevated CO2 37 most likely secondary to her COPD. Lipase was normal COVID-19 and influenza were negative. Radiology evaluation: CT scan of the abdomen pelvis without IV contrast radiology and interpretation as follows: IMPRESSION: 1. Several mildly prominent fluid-filled small bowel loops in the right abdomen with a caliber change in the vicinity of a suture line in the anterior mid abdomen, raising concern for developing bowel obstruction. 2. Cholelithiasis. Dictated By:Lucius Juarez MDSigned By:<Electronically signed by Lucius Juarez MD in OV>01/08/22 0526 The patient did get some improvement with the above treatment but did require 2nd dose of morphine 4 mg IV. Patient's presentation is consistent and radiology findings are consistent with partial small-bowel obstruction. I will discuss the patient's presentation with the covering surgeon. 0717: I did discuss the patient's presentation with the covering surgeon, Dr. Brizuela and the patient will be admitted to his service for further management. Patient is not actively vomiting at this time and does not require an NG tube. Medications Administered Discontinued Medications Generic Name Dose Route Start Last Admin Trade Name Freq PRN Reason Stop Dose Admin Sodium Chloride 1,000 mls @ 999 mls/hr 01/08/22 04:02 01/08/22 04:30 Ns IV 01/08/22 05:02 999 mls/hr .Q1H1M STA Administration Lorazepam 0.5 mg 01/08/22 03:25 01/08/22 03:32 Lorazepam 0.5 Mg Tablet PO 01/08/22 03:26 0.5 mg ONCE ONE Administration Lorazepam 2 mg 01/08/22 04:02 01/08/22 04:15 Lorazepam 1 Mg Tablet PO 01/08/22 04:03 2 mg ONCE STA Administration Morphine Sulfate 4 mg 01/08/22 04:02 01/08/22 04:30 Morphine Sulfate 4 Mg/Ml Cartridge IVPUSH 01/08/22 04:03 4 mg ONCE STA Administration Protocol Morphine Sulfate 4 mg 01/08/22 06:27 01/08/22 06:35 Morphine Sulfate 4 Mg/Ml Cartridge IVPUSH 01/08/22 06:28 4 mg ONCE STA Administration Protocol MDM - Abdominal Pain Lab Data Result diagrams: 01/08/22 04:28 01/08/22 04:28 Labs: Lab Results 01/08/22 01/08/22 01/08/22 Range/Units 04:28 04:28 04:28 WBC 7.7 (4.8-10.8) X10*3/uL RBC 4.17 L (4.20-5.50) X10*6/uL Hgb 11.1 L (12.0-16.0) g/dl Hct 36.8 L (37.0-47.0) % MCV 88.2 (80.0-98.0) fL MCH 26.6 L (27.0-33.0) pg MCHC 30.2 L (31.0-35.0) g/dl RDW 15.3 (11.0-16.0) % Plt Count 370 (160-400) X10*3/uL MPV 9.0 L (9.4-12.3) fL Immature Gran % (Auto) 0.4 (0.0-0.4) % Neut % (Auto) 71.9 (45-73) % Lymph % (Auto) 17.7 L (20-40) % [place] % (Auto) 8.3 (2-11) % Eos % (Auto) 1.3 (0-4) % Baso % (Auto) 0.4 (0-2) % Lymph # (Auto) 1.4 (1.2-4.9) X10*3/uL [place] # (Auto) 0.6 (0.1-1.2) X10*3/uL Eos # (Auto) 0.1 (0.0-0.4) X10*3/uL Baso # (Auto) 0.0 (0.0-0.2) X10*3/uL Abs Immat Gran (auto) 0.03 (0.00-0.03) X10*3/uL Absolute Neuts (auto) 5.5 (2.0-8.3) x10*3/uL Absolute Nucleated RBC 0.000 (0.0-0.012) X10*3/uL Nucleated RBC % (auto) 0.0 (0.0-0.2) /100WBC PT 10.0 (10.0-13.1) SEC INR 0.9 (0.9-1.1) APTT 32.5 (26.0-36.4) SEC Sodium 137 (135-145) mmol/L Potassium 4.2 D (3.3-5.1) mmol/L Chloride 96 (96-108) mmol/L Carbon Dioxide 37 H (22-29) mmol/L Anion Gap 8 L (12-20) BUN 12 (9-16) mg/dL Creatinine 0.61 (0.5-1.4) mg/dL Estim Creat Clear Calc 69.5 Estimated GFR > 60 Random Glucose 124 H (60-115) mg/dL Lactic Acid (0.5-2.0) mmol/L Calcium 9.7 D (8.4-10.2) mg/dL Total Bilirubin 0.2 (0.0-1.0) mg/dL AST 15 (5-31) U/L ALT 10 (0-31) U/L Alkaline Phosphatase 113 (39-117) U/L Total Protein 7.0 (6.5-8.0) g/dL Albumin 4.1 (3.5-5.0) g/dL Lipase 10 (8-78) U/L Urine Color Urine Appearance Urine pH (5.0-9.0) Ur Specific [place] (1.005-1.025) Urine Protein (Neg-Trace) mg/dL Urine Glucose (UA) (Negative) mg/dL Urine Ketones (Negative) mg/dL Urine Blood (Negative) Urine Nitrite (Negative) Ur Leukocyte Esterase (Negative) COVID-19 (SEAN) (Negative) COVID-19 Clin Com Influenza Type A (TAMIKO) (Negative) Influenza Type B (TAMIKO) (Negative) Influenza A & B Note 01/08/22 01/08/22 01/08/22 Range/Units 04:28 04:28 04:28 WBC (4.8-10.8) X10*3/uL RBC (4.20-5.50) X10*6/uL Hgb (12.0-16.0) g/dl Hct (37.0-47.0) % MCV (80.0-98.0) fL MCH (27.0-33.0) pg MCHC (31.0-35.0) g/dl RDW (11.0-16.0) % Plt Count (160-400) X10*3/uL MPV (9.4-12.3) fL Immature Gran % (Auto) (0.0-0.4) % Neut % (Auto) (45-73) % Lymph % (Auto) (20-40) % [place] % (Auto) (2-11) % Eos % (Auto) (0-4) % Baso % (Auto) (0-2) % Lymph # (Auto) (1.2-4.9) X10*3/uL [place] # (Auto) (0.1-1.2) X10*3/uL Eos # (Auto) (0.0-0.4) X10*3/uL Baso # (Auto) (0.0-0.2) X10*3/uL Abs Immat Gran (auto) (0.00-0.03) X10*3/uL Absolute Neuts (auto) (2.0-8.3) x10*3/uL Absolute Nucleated RBC (0.0-0.012) X10*3/uL Nucleated RBC % (auto) (0.0-0.2) /100WBC PT (10.0-13.1) SEC INR (0.9-1.1) APTT (26.0-36.4) SEC Sodium (135-145) mmol/L Potassium (3.3-5.1) mmol/L Chloride (96-108) mmol/L Carbon Dioxide (22-29) mmol/L Anion Gap (12-20) BUN (9-16) mg/dL Creatinine (0.5-1.4) mg/dL Estim Creat Clear Calc Estimated GFR Random Glucose (60-115) mg/dL Lactic Acid 1.1 (0.5-2.0) mmol/L Calcium (8.4-10.2) mg/dL Total Bilirubin (0.0-1.0) mg/dL AST (5-31) U/L ALT (0-31) U/L Alkaline Phosphatase (39-117) U/L Total Protein (6.5-8.0) g/dL Albumin (3.5-5.0) g/dL Lipase (8-78) U/L Urine Color Urine Appearance Urine pH (5.0-9.0) Ur Specific [place] (1.005-1.025) Urine Protein (Neg-Trace) mg/dL Urine Glucose (UA) (Negative) mg/dL Urine Ketones (Negative) mg/dL Urine Blood (Negative) Urine Nitrite (Negative) Ur Leukocyte Esterase (Negative) COVID-19 (SEAN) Negative (Negative) COVID-19 Clin Com See Note Influenza Type A (TAMIKO) Negative (Negative) Influenza Type B (TAMIKO) Negative (Negative) Influenza A & B Note See Note 01/08/22 Range/Units 06:15 WBC (4.8-10.8) X10*3/uL RBC (4.20-5.50) X10*6/uL Hgb (12.0-16.0) g/dl Hct (37.0-47.0) % MCV (80.0-98.0) fL MCH (27.0-33.0) pg MCHC (31.0-35.0) g/dl RDW (11.0-16.0) % Plt Count (160-400) X10*3/uL MPV (9.4-12.3) fL Immature Gran % (Auto) (0.0-0.4) % Neut % (Auto) (45-73) % Lymph % (Auto) (20-40) % [place] % (Auto) (2-11) % Eos % (Auto) (0-4) % Baso % (Auto) (0-2) % Lymph # (Auto) (1.2-4.9) X10*3/uL [place] # (Auto) (0.1-1.2) X10*3/uL Eos # (Auto) (0.0-0.4) X10*3/uL Baso # (Auto) (0.0-0.2) X10*3/uL Abs Immat Gran (auto) (0.00-0.03) X10*3/uL Absolute Neuts (auto) (2.0-8.3) x10*3/uL Absolute Nucleated RBC (0.0-0.012) X10*3/uL Nucleated RBC % (auto) (0.0-0.2) /100WBC PT (10.0-13.1) SEC INR (0.9-1.1) APTT (26.0-36.4) SEC Sodium (135-145) mmol/L Potassium (3.3-5.1) mmol/L Chloride (96-108) mmol/L Carbon Dioxide (22-29) mmol/L Anion Gap (12-20) BUN (9-16) mg/dL Creatinine (0.5-1.4) mg/dL Estim Creat Clear Calc Estimated GFR Random Glucose (60-115) mg/dL Lactic Acid (0.5-2.0) mmol/L Calcium (8.4-10.2) mg/dL Total Bilirubin (0.0-1.0) mg/dL AST (5-31) U/L ALT (0-31) U/L Alkaline Phosphatase (39-117) U/L Total Protein (6.5-8.0) g/dL Albumin (3.5-5.0) g/dL Lipase (8-78) U/L Urine Color Yellow Urine Appearance Clear Urine pH 6.5 (5.0-9.0) Ur Specific [place] 1.020 (1.005-1.025) Urine Protein Negative (Neg-Trace) mg/dL Urine Glucose (UA) Negative (Negative) mg/dL Urine Ketones Negative (Negative) mg/dL Urine Blood Negative (Negative) Urine Nitrite Negative (Negative) Ur Leukocyte Esterase Negative (Negative) COVID-19 (SEAN) (Negative) COVID-19 Clin Com Influenza Type A (TAMIKO) (Negative) Influenza Type B (TAMIKO) (Negative) Influenza A & B Note Discharge Plan Discharge Patient Disposition: Admitted As Inpatient Prescriptions: No Action albuterol sulfate 2.5 mg /3 mL (0.083 %) solution for nebulization 1 vial inhalation 6XD kfcryblpxj-ljtlsqlzkrxcy-kscv 50-325-40 mg tablet 1 tab PO Q12H PRN (Reason: Headache) ipratropium bromide 0.02 % solution 2.5 ml inhalation Q6H PRN (Reason: wheezing) meclizine 25 mg tablet 25 mg PO TID PRN (Reason: dizziness) Qty: 14 0RF diltiazem HCl 360 mg capsule,extended release 24 hr 1 cap PO DAILY lorazepam 2 mg tablet 1 tab PO Q6H PRN (Reason: anxiety) fluticasone propion-salmeterol [Wixela Inhub] 250-50 mcg/dose blister with device 1 puff inhalation BID cefpodoxime 200 mg tablet 200 mg PO BID Qty: 56 0RF Rx Instructions: must administer with a meal/food
[2022-01-08] MEDS: LORazepam 1 MG TABLET 2 MG PO ×4 (04:15→21:36)
[2022-01-08] MEDS: 0.9 % Sodium Chloride 1,000 ML 999 ML IV (04:30)
[2022-01-08] MEDS: Morphine Sulfate 4 MG/ML CARTRIDGE IVPUSH ×2 (04:30→06:35)
[2022-01-08 04:39] LABS: MANUAL DIFF FLAG NO
[2022-01-08 04:47] LABS: INTERNATIONAL NORM RATIO 0.9 (0.9-1.1)
[2022-01-08 04:50] LABS: Basophils Percent Auto 0.4 % (0-2); Eosinophils Absolute Auto 0.1 X10*3/uL (0.0-0.4); Eosinophils Percent Auto 1.3 % (0-4); Hematocrit 36.8 % (37.0-47.0); Hemoglobin 11.1 g/dl (12.0-16.0); Imm Gran Abs Auto 0.03 X10*3/uL (0.00-0.03); Imm Gran Pct Auto 0.4 % (0.0-0.4); Lymphocytes Absolute Auto 1.4 X10*3/uL (1.2-4.9); Lymphocytes Percent Auto 17.7 % (20-40); Mean Corpuscular HGB Conc 30.2 g/dl (31.0-35.0); Mean Corpuscular Hemoglobin 26.6 pg (27.0-33.0); Mean Corpuscular Volume 88.2 fL (80.0-98.0); Monocytes Absolute Auto 0.6 X10*3/uL (0.1-1.2); Monocytes Percent Auto 8.3 % (2-11); Neutrophils Absolute Auto 5.5 x10*3/uL (2.0-8.3); Neutrophils Percent Auto 71.9 % (45-73); Partial Thromboplastin Time 32.5 SEC (26.0-36.4); Platelet Count 370 X10*3/uL (160-400); Red Blood Count 4.17 X10*6/uL (4.20-5.50); Red Cell Distribution Width 15.3 % (11.0-16.0); White Blood Count 7.7 X10*3/uL (4.8-10.8)
[2022-01-08 04:54] LABS: Lactic Acid 1.1 mmol/L (0.5-2.0)
[2022-01-08 05:00] LABS: Alanine Aminotransferase 10 U/L (0-31); Albumin Level 4.1 g/dL (3.5-5.0); Alkaline Phosphatase 113 U/L (39-117); Anion Gap 8 (12-20); Aspartate Amino Transferase 15 U/L (5-31); Bilirubin Total 0.2 mg/dL (0.0-1.0); Blood Urea Nitrogen 12 mg/dL (9-16); COVID-19 Test Negative (Negative); Calcium 9.7 mg/dL (8.4-10.2); Carbon Dioxide 37 mmol/L (22-29); Chloride 96 mmol/L (96-108); Creatinine Clr Calc Pharmacy 69.5; Estimated Glomerular Filt Rate > 60; Glucose Random 124 mg/dL (60-115); IDNOW Serial# 16C4AD1C; IDNOW Serial# BCCEAD1C; Influenza A Negative (Negative); Influenza B2 Negative (Negative); Lipase 10 U/L (8-78); Potassium 4.2 mmol/L (3.3-5.1); Sodium 137 mmol/L (135-145)
[2022-01-08 06:21] LABS: Appearance Urine Clear; Color Urine Yellow; Glucose Urine UA Negative (Negative); Leukocyte Esterase Urine Negative (Negative); Nitrite Urine Negative (Negative); PH 6.5 (5.0-9.0); Urine Blood Negative (Negative); Urine Ketones Negative (Negative); Urine Protein Negative (Neg-Trace)
--- NOTE | 2022-01-08 06:25 | PC.NURSE ---
Pt. alert and oriented sitting in bed. Pt. reports pain in her abdomen at 7/10. Pt. requesting status of disposition as she is hoping to be admitted for a couple of days.
[2022-01-08] MEDS: Dextrose 5 % and Lactated Ring 1,000 ML 100 ML IVCONT ×2 (08:06→22:44)
[2022-01-08] MEDS: cefTRIAXone sodium 1 GM in 0.9 % Sodium Chloride 50 ML IV (08:24)
[2022-01-08] MEDS: oxyCODONE HCl Immed Release 5 MG TABLET PO ×3 (08:28→21:34)
--- NOTE | 2022-01-08 08:30 | PHA.MEDREC ---
Pharmacy Consult ? Medication Reconciliation Pharmacy has completed the medication reconciliation.
--- NOTE | 2022-01-08 09:44 | PM.HPGS ---
History of Present Illness History of Present Illness Date of Service: 01/08/22 Chief complaint: Partial small bowel obstruction Narrative: Tiffanie Ngo is a 66 year old female Presenting to the emergency department with complaints of right lower quadrant abdominal pain. The patient reports the pain started suddenly approximately 1 day prior to presentation located mainly in the right lower quadrant. The pain is constant and associated with nausea without vomiting. She has a prior history of perforated diverticulitis and previously underwent a sigmoid resection with ileostomy followed by ileostomy closure approximately 2 years ago. She has been well since then denies a previous history of bowel obstructions. Her bowels have been moving daily and she denies constipation or diarrhea. Workup in the emergency department revealed a normal WBC but elevated CO2. CT abdomen and pelvis however revealed loops of dilated small bowel with a transition point at the anastomosis following closure of ileostomy. This is suggestive of a partial small-bowel obstruction. Colon is full of stool. Patient is admitted to the surgical service for management of this partial small-bowel obstruction. Review of Systems Review of Systems: Yes all other systems are reviewed and are negative Constitutional: Constitutional: Denies chills, Denies fever(s), Denies headache(s), Denies poor appetite and Denies weakness ENT: Denies headache(s) Cardiovascular: Cardiovascular: Denies chest pain, Denies irregular heart rhythm, Denies palpitations and Reports dyspnea Respiratory: Respiratory: Denies cough, Denies excessive phlegm production and Reports dyspnea Gastrointestinal: Gastrointestinal: Reports abdominal pain, Denies bloating, Denies change in bowel habits, Denies constipation, Denies heartburn, Denies diarrhea, Reports nausea and Denies vomiting Genitourinary: Genitourinary: Denies urinary frequency Musculoskeletal: Musculoskeletal: Denies back pain, Denies muscle weakness and Denies numbness Integumentary/Breasts: Skin/Breast: Denies changing lesions and Denies unusual bruising Neurologic: Denies headache(s), Denies numbness, Denies paresthesias and Denies weakness Psychiatric: Psychiatric: Reports anxiety and Denies depression Endocrine: Endocrine: Denies palpitations Hematologic/Lymphatic: Hematologic/Lymphatic: Denies lymphadenopathy PMFSH Past Medical History Medical History Anxiety Asthma Bronchitis Chronic respiratory failure COPD (chronic obstructive pulmonary disease) Diverticulitis Dizziness Emphysema lung Hypertension Otitis media Vertigo Family History Family History Other No family history of coronary artery disease Surgical History Surgical History History of breast surgery History of laparotomy Social History Social History Household Members: Spouse Housing: Other Housing Other:: room Do you presently have visiting nurse or other home services: No Alcohol intake: never Patient Tobacco Use Status: Never used Tobacco Smoked in Last 30 Days: No Use of substances other than those prescribed or required for medical reasons: No Substance Use Type: Marijuana Advance Directives: Yes Advance Directives on File: Yes Advance Directives Date on File: 07/09/21 service: No Current occupational status: disabled Meds Allergies Allergy/AdvReac Type Severity Reaction Status Date / Time morphine [MORPHINE] Allergy Severe HIVES, Verified 11/19/21 01:59 high temp, nausea tramadol [TRAMADOL] Allergy Severe SWEATING, Verified 11/19/21 01:59 VOMITING, vomiting Sulfa (Sulfonamide Allergy Unknown Verified 12/25/21 00:19 Antibiotics) amoxicillin [From AUGMENTIN] AdvReac Severe CONSTIPATIO Verified 11/19/21 01:59 N clavulanic acid AdvReac Severe CONSTIPATIO Verified 11/19/21 01:59 [From AUGMENTIN] N codeine [CODEINE] AdvReac Severe NAUSEA Verified 11/19/21 01:59 levofloxacin [From LEVAQUIN] AdvReac Severe CONSTIPATIO Verified 11/19/21 01:59 N Sulfa(Sulfonamide Allergy Unknown Unknown Uncoded 10/04/20 22:39 Antibiotics) Active Medications: Current Medications Acetaminophen (Acetaminophen 325 Mg Tablet) 650 mg PO QID PRN PRN Reason: headache, temp > 101 Albuterol/Ipratropium (Albuterol/Iprat 2.5/0.5mg 3 Ml Ampul.Neb) 3 ml INHALE RQ4H WHILE AWAKE [facility] Albuterol/Ipratropium (Albuterol/Iprat 2.5/0.5mg 3 Ml Ampul.Neb) 3 ml INHALE RQ4H PRN PRN Reason: copd Hydromorphone HCl (Hydromorphone Hcl 0.5 Mg/0.5 Ml Syringe) 0.5 mg IVPUSH Q3H PRN; Protocol PRN Reason: Pain, Severe (Pain Scale 7-10) Dextrose/Lactated Ringer's (D5lr) 1,000 mls @ 100 mls/hr IVCONT .[facility]10H [facility] Last Admin: 01/08/22 08:06 Dose: 100 mls/hr Ceftriaxone Sodium 1 gm/ (Sodium Chloride) 50 mls @ 100 mls/hr IV Q24H [facility] Last Infusion: 01/08/22 08:54 Dose: Infused Lorazepam (Lorazepam 1 Mg Tablet) 2 mg PO Q6H PRN PRN Reason: Anxiety Last Admin: 01/08/22 08:28 Dose: 2 mg Ondansetron HCl (Ondansetron Hcl 4 Mg/2 Ml Vial) 4 mg IVPUSH QID PRN PRN Reason: Nausea Oxycodone HCl (Oxycodone Hcl Immed Release 5 Mg Tablet) 5 mg PO Q6H PRN PRN Reason: Pain, Moderate (Pain Scale 4-6 Last Admin: 01/08/22 08:28 Dose: 5 mg Pharmacy Consult (Consult Rx Perform Med Rec) 1 each MISCELLANE ONCE PRN PRN Reason: Consult order Pharmacy Consult (Consult Rx Perform Med Rec) 1 each MISCELLANE ONCE PRN PRN Reason: Consult order Zolpidem Tartrate (Zolpidem Tartrate 5 Mg Tablet) 5 mg PO BEDTIME PRN PRN Reason: Insomnia Home Medications Medication Instructions Recorded Confirmed Last Taken Type albuterol sulfate 2.5 mg/3 mL 1 vial inhalation Q6H 10/04/20 01/08/22 01/07/22 History (0.083 %) solution for nebulization ysmphbnuft-aulobhfawzvte-[id number] 1 tab PO Q12H PRN Migraine Headache 10/04/20 01/08/22 2 Weeks Ago History 50 mg-325 mg-40 mg tablet ~12/25/21 diltiazem HCl 360 mg capsule,24 1 cap PO DAILY 07/08/21 01/08/22 01/07/22 History hr,extended release lorazepam 2 mg tablet 1 tab PO Q6H PRN anxiety 07/08/21 01/08/22 01/07/22 History ipratropium bromide 0.02 % 2.5 ml inhalation Q6H 09/25/21 01/08/22 01/07/22 History solution for inhalation ibuprofen 200 mg tablet (Advil) 400 mg PO Q8H PRN Headache 01/08/22 01/08/22 Unknown History ipratropium bromide 17 2 puff inhalation QID PRN 01/08/22 01/08/22 01/07/22 History mcg/actuation HFA aerosol inhaler Shortness Of Breath Or Wheezing (Atrovent HFA) oxymetazoline 0.05 % nasal spray 2 spray intranasal Q12H PRN 01/08/22 01/08/22 Unknown History Congestion Physical Exam Vital Signs: Vital Signs: Last Vital Signs Temp 98.0 F 01/08/22 07:07 Pulse 87 01/08/22 07:07 Resp 24 H 01/08/22 07:07 BP 159/63 H 01/08/22 07:07 Pulse Ox 95 01/08/22 07:07 O2 Del Method 01/08/22 07:07 O2 Flow Rate 3 01/08/22 07:07 Oxygen Flow Rate 4 01/08/22 01:51 BMI result Body Mass Index 26.9 Const: General: cooperative and no acute distress Nutritional Appearance: well nourished Orientation/consciousness: patient oriented x3 Limitations: no limitations HEENT: Head: Yes normocephalic and Yes atraumatic Ears: hearing grossly normal bilaterally Resp: Effort & Inspection: normal respiratory effort, no audible wheezes, no cough and no respiratory distress Cardio: Jugular venous distension: no JVD GI: Inspection: Yes normal to inspection Palpation (GI): Soft to palpation, Tenderness to palpation present (GI) in the RLQ; with no rebound tenderness, no guarding, not rigid, hepatosplenomegaly present and No Rebound tenderness present Percussion: Yes normal to percussion Auscultation: normal bowel sounds Rectal Exam - Female: deferred Skin: Other: Warm, dry, no rash Neuro: General: patient oriented x3 Extrem: General: Yes no clubbing, cyanosis or edema Results Results Labs: Short CBC 01/08/22 Range/Units 04:28 WBC 7.7 (4.8-10.8) X10*3/uL Hgb 11.1 L (12.0-16.0) g/dl Hct 36.8 L (37.0-47.0) % Plt Count 370 (160-400) X10*3/uL BMP 01/08/22 04:28 Sodium 137 Potassium 4.2 D Chloride 96 Carbon Dioxide 37 H BUN 12 Creatinine 0.61 Calcium 9.7 D Liver Function 01/08/22 Range/Units 04:28 Total Bilirubin 0.2 (0.0-1.0) mg/dL AST 15 (5-31) U/L ALT 10 (0-31) U/L Alkaline Phosphatase 113 (39-117) U/L Albumin 4.1 (3.5-5.0) g/dL Urine 01/08/22 Range/Units 06:15 Urine Color Yellow Urine Appearance Clear Urine pH 6.5 (5.0-9.0) Ur Specific [place] 1.020 (1.005-1.025) Urine Protein Negative (Neg-Trace) mg/dL Urine Glucose (UA) Negative (Negative) mg/dL Assessment and Plan (1) Partial obstruction of small intestine: Status: Acute (2) Acute and chronic respiratory failure with hypoxia: Status: Acute (3) Anxiety: Status: Acute Plan Review of CT reveals a nondistended stomach with several loops of partially dilated small bowel with air-fluid level suggestive of a early partial small-bowel obstruction. NG tube does not seem to be of much benefit at this time. Will treat patient with bowel rest and IV fluids. Will order MiraLax to help with the stool burden noted in colon. Hospitalist consultation requested for assistance with medical management including COPD. Ativan ordered for anxiety. Quality Stroke Does the patient have a stroke diagnosis?: No VTE Prior VTE?: No VTE Risk Level:: Medical - low VTE Device Contraindication: N/A - Device Ordered VTE Drug Contraindication: Treatment Not Indicated Procedures Date of Service Date of Service: 01/08/22
--- NOTE | 2022-01-08 09:57 | P.CONIM_ITS ---
History of Present Illness Data of Consult Service Date: 01/08/22 Requesting physician: Nash Brizuela Primary Care Provider: Nonstaff Physician HPI Reason for consult: partial sbo/abd pain 66-year-old female with past medical history of COPD on chronic O2?,htn,anxiety, patient was recently admitted for COPD exacerbation and had possible small abscess lung-for which she was on p.o. antibiotics. Today comes with right lower quadrant pain ,nausea.patient states that the pain started approximately 24 hours prior to coming to the emergency department.? She describes the pain as a constant, sharp pain,8.? She states that she did have nausea with no vomiting.? She states that she had a normal bowel movement yesterday x2 but no bowel movement on the day of presentation.? The patient states that she had diverticulitis in the past and required a colectomy and a colostomy which was eventually taken down. She denied fever but states she had occasional chills.? She denied rhinorrhea, sore throat, cough, chest pain, shortness of breath, dyspnea on exertion.? She did have nausea with no vomiting.? She denied dark tarry stools or bloody stools. Review of Systems Review of Systems: As above. [facility] Medical History Anxiety Asthma Bronchitis Chronic respiratory failure COPD (chronic obstructive pulmonary disease) Diverticulitis Dizziness Emphysema lung Hypertension Otitis media Vertigo Family History Other No family history of coronary artery disease Pertinent family history: denies any hx of copd in family Surgical History History of breast surgery History of laparotomy Social History Household Members: Spouse Housing: Other Housing Other:: room Do you presently have visiting nurse or other home services: No Alcohol intake: never Patient Tobacco Use Status: Never used Tobacco Substance Use Type: Marijuana Advance Directives Date on File: 07/09/21 service: No Current occupational status: disabled Meds Allergies Allergy/AdvReac Type Severity Reaction Status Date / Time morphine [MORPHINE] Allergy Severe HIVES, Verified 11/19/21 01:59 high temp, nausea tramadol [TRAMADOL] Allergy Severe SWEATING, Verified 11/19/21 01:59 VOMITING, vomiting Sulfa (Sulfonamide Allergy Unknown Verified 12/25/21 00:19 Antibiotics) amoxicillin [From AUGMENTIN] AdvReac Severe CONSTIPATIO Verified 11/19/21 01:59 N clavulanic acid AdvReac Severe CONSTIPATIO Verified 11/19/21 01:59 [From AUGMENTIN] N codeine [CODEINE] AdvReac Severe NAUSEA Verified 11/19/21 01:59 levofloxacin [From LEVAQUIN] AdvReac Severe CONSTIPATIO Verified 11/19/21 01:59 N Sulfa(Sulfonamide Allergy Unknown Unknown Uncoded 10/04/20 22:39 Antibiotics) Active Medications: Current Medications Acetaminophen (Acetaminophen 325 Mg Tablet) 650 mg PO QID PRN PRN Reason: headache, temp > 101 Albuterol/Ipratropium (Albuterol/Iprat 2.5/0.5mg 3 Ml Ampul.Neb) 3 ml INHALE RQ4H WHILE AWAKE [facility] Albuterol/Ipratropium (Albuterol/Iprat 2.5/0.5mg 3 Ml Ampul.Neb) 3 ml INHALE RQ4H PRN PRN Reason: copd Hydromorphone HCl (Hydromorphone Hcl 0.5 Mg/0.5 Ml Syringe) 0.5 mg IVPUSH Q3H PRN; Protocol PRN Reason: Pain, Severe (Pain Scale 7-10) Dextrose/Lactated Ringer's (D5lr) 1,000 mls @ 100 mls/hr IVCONT .Q10H [facility] Last Admin: 01/08/22 08:06 Dose: 100 mls/hr Ceftriaxone Sodium 1 gm/ (Sodium Chloride) 50 mls @ 100 mls/hr IV Q24H [facility] Last Infusion: 01/08/22 08:54 Dose: Infused Lorazepam (Lorazepam 1 Mg Tablet) 2 mg PO Q6H PRN PRN Reason: Anxiety Last Admin: 01/08/22 08:28 Dose: 2 mg Ondansetron HCl (Ondansetron Hcl 4 Mg/2 Ml Vial) 4 mg IVPUSH QID PRN PRN Reason: Nausea Oxycodone HCl (Oxycodone Hcl Immed Release 5 Mg Tablet) 5 mg PO Q6H PRN PRN Reason: Pain, Moderate (Pain Scale 4-6 Last Admin: 01/08/22 08:28 Dose: 5 mg Pharmacy Consult (Consult Rx Perform Med Rec) 1 each MISCELLANE ONCE PRN PRN Reason: Consult order Pharmacy Consult (Consult Rx Perform Med Rec) 1 each MISCELLANE ONCE PRN PRN Reason: Consult order Zolpidem Tartrate (Zolpidem Tartrate 5 Mg Tablet) 5 mg PO BEDTIME PRN PRN Reason: Insomnia Home Medications Medication Instructions Recorded Confirmed Last Taken Type albuterol sulfate 2.5 mg/3 mL 1 vial inhalation Q6H 10/04/20 01/08/22 01/07/22 History (0.083 %) solution for nebulization homzmxilun-xksmaamyckozg-xtwutnri 1 tab PO Q12H PRN Migraine Headache 10/04/20 01/08/22 2 Weeks Ago History 50 mg-325 mg-40 mg tablet ~12/25/21 diltiazem HCl 360 mg capsule,24 1 cap PO DAILY 07/08/21 01/08/22 01/07/22 History hr,extended release lorazepam 2 mg tablet 1 tab PO Q6H PRN anxiety 07/08/21 01/08/22 01/07/22 History ipratropium bromide 0.02 % 2.5 ml inhalation Q6H 09/25/21 01/08/22 01/07/22 History solution for inhalation ibuprofen 200 mg tablet (Advil) 400 mg PO Q8H PRN Headache 01/08/22 01/08/22 Unknown History ipratropium bromide 17 2 puff inhalation QID PRN 01/08/22 01/08/22 01/07/22 History mcg/actuation HFA aerosol inhaler Shortness Of Breath Or Wheezing (Atrovent HFA) oxymetazoline 0.05 % nasal spray 2 spray intranasal Q12H PRN 01/08/22 01/08/22 Unknown History Congestion Physical Exam Vital Signs and Narrative: Vital Signs: Last Vital Signs Temp 98.0 F 01/08/22 07:07 Pulse 87 01/08/22 07:07 Resp 24 H 01/08/22 07:07 BP 159/63 H 01/08/22 07:07 Pulse Ox 95 01/08/22 07:07 O2 Del Method 01/08/22 07:07 O2 Flow Rate 3 01/08/22 07:07 Oxygen Flow Rate 4 01/08/22 01:51 BMI result Body Mass Index 26.9 . Appearance: Alert.? Oriented X3.? not in distress.? Eyes: Pupils equal, round and reactive to light.? Sclera nonicteric.? ENT: Pharynx normal.? Moist mucous membranes. cvs: rrr, [id number] , no murmur res: air entry fair ,no rales or wheezin abd: no rebound or guarding ,right lower abd pain, bs present. ext pulses present , no cyanosis. neuro: axo3 , nonfocal. Results Labs CBC and Chem 7: 01/08/22 04:28 01/08/22 04:28 Labs: Laboratory Results - last 24 hr 01/08/22 01/08/22 01/08/22 04:28 04:28 04:28 MCV 88.2 MCH 26.6 L MCHC 30.2 L RDW 15.3 Plt Count 370 MPV 9.0 L Immature Gran % (Auto) 0.4 Neut % (Auto) 71.9 Lymph % (Auto) 17.7 L [place] % (Auto) 8.3 Eos % (Auto) 1.3 Baso % (Auto) 0.4 Lymph # (Auto) 1.4 [place] # (Auto) 0.6 Eos # (Auto) 0.1 Baso # (Auto) 0.0 Abs Immat Gran (auto) 0.03 Absolute Neuts (auto) 5.5 Absolute Nucleated RBC 0.000 Nucleated RBC % (auto) 0.0 PT 10.0 INR 0.9 APTT 32.5 Anion Gap 8 L Estim Creat Clear Calc 69.5 Estimated GFR > 60 Random Glucose 124 H Lactic Acid Calcium 9.7 D Total Bilirubin 0.2 AST 15 ALT 10 Alkaline Phosphatase 113 Total Protein 7.0 Albumin 4.1 Lipase 10 Urine Color Urine Appearance Urine pH Ur Specific [place] Urine Protein Urine Glucose (UA) Urine Ketones Urine Blood Urine Nitrite Ur Leukocyte Esterase COVID-19 (SEAN) COVID-19 Clin Com Influenza Type A (TAMIKO) Influenza Type B (TAMIKO) Influenza A & B Note 01/08/22 01/08/22 01/08/22 04:28 04:28 04:28 MCV MCH MCHC RDW Plt Count MPV Immature Gran % (Auto) Neut % (Auto) Lymph % (Auto) [place] % (Auto) Eos % (Auto) Baso % (Auto) Lymph # (Auto) [place] # (Auto) Eos # (Auto) Baso # (Auto) Abs Immat Gran (auto) Absolute Neuts (auto) Absolute Nucleated RBC Nucleated RBC % (auto) PT INR APTT Anion Gap Estim Creat Clear Calc Estimated GFR Random Glucose Lactic Acid 1.1 Calcium Total Bilirubin AST ALT Alkaline Phosphatase Total Protein Albumin Lipase Urine Color Urine Appearance Urine pH Ur Specific [place] Urine Protein Urine Glucose (UA) Urine Ketones Urine Blood Urine Nitrite Ur Leukocyte Esterase COVID-19 (SEAN) Negative COVID-19 Clin Com See Note Influenza Type A (TAMIKO) Negative Influenza Type B (TAMIKO) Negative Influenza A & B Note See Note 01/08/22 06:15 MCV MCH MCHC RDW Plt Count MPV Immature Gran % (Auto) Neut % (Auto) Lymph % (Auto) [place] % (Auto) Eos % (Auto) Baso % (Auto) Lymph # (Auto) [place] # (Auto) Eos # (Auto) Baso # (Auto) Abs Immat Gran (auto) Absolute Neuts (auto) Absolute Nucleated RBC Nucleated RBC % (auto) PT INR APTT Anion Gap Estim Creat Clear Calc Estimated GFR Random Glucose Lactic Acid Calcium Total Bilirubin AST ALT Alkaline Phosphatase Total Protein Albumin Lipase Urine Color Yellow Urine Appearance Clear Urine pH 6.5 Ur Specific [place] 1.020 Urine Protein Negative Urine Glucose (UA) Negative Urine Ketones Negative Urine Blood Negative Urine Nitrite Negative Ur Leukocyte Esterase Negative COVID-19 (SEAN) COVID-19 Clin Com Influenza Type A (TAMIKO) Influenza Type B (TAMIKO) Influenza A & B Note Imaging Radiologist's Impressions: Impressions Abdomen/Pelvis CT 01/08/22 04:46 IMPRESSION: 1. Several mildly prominent fluid-filled small bowel loops in the right abdomen with a caliber change in the vicinity of a suture line in the anterior mid abdomen, raising concern for developing bowel obstruction. 2. Cholelithiasis. Assessment and Plan (1) Partial obstruction of small intestine: Status: Acute (2) Abdominal pain: Qualifiers: Abdominal location: right lower quadrant Qualified Code(s): R10.31 - Right lower quadrant pain Status: Acute (3) Pulmonary abscess: Status: Acute Plan 66-year-old female with past medical history of COPD on chronic O2 2 L baseline presents to the hospital with abd pain. Partial bowel obstruction: As per patient last bowel was yesterday And p.o., pain managemnt,hydration # ? hx toacute COPD / recent possible lung abscess stable , no sob or cough Incentive spirometry, chest physio continue DuoNebs, iv ceftriaxone day1. - titrate oxygen down to baseline with a goal of O2 between 88-92% given her underlying COPD. # hypertension - stable - continue diltiazem # history of anxiety continue ativan and psych meds . DVT prophylaxis:? Lovenox ongoing inpatient need:abd pain -partial sbo-need monitoring, hydration
[2022-01-08] MEDS: HYDROmorphone HCl 0.5 MG/0.5 ML SYRINGE IVPUSH ×2 (10:44→15:52)
[2022-01-08] MEDS: polyethylene glycoL 3350 17 GM POWD.PACK PO (10:44)
[2022-01-08] MEDS: Albuterol/Iprat 2.5/0.5MG 3 ML AMPUL.NEB INHALE ×2 (14:15→22:22)
[2022-01-08] MEDS: Acetaminophen 325 MG TABLET 650 MG PO ×2 (15:52→21:36)
[2022-01-08] MEDS: Zolpidem Tartrate 5 MG TABLET PO (20:02)
[2022-01-08] MEDS: Butalb/Acetamin/Caff 50/325/40 TABLET 1 TAB PO (21:57)
[2022-01-08] MEDS: Morphine Sulfate 2 MG/ML CARTRIDGE IVPUSH (21:57)
[2022-01-09 03:51] VITALS: BP 135/61; PULSE 94; RESP 18; TEMP 37; O2SAT 100
[2022-01-09] MEDS: LORazepam 1 MG TABLET 2 MG PO ×3 (06:51→22:35)
[2022-01-09] MEDS: Morphine Sulfate 2 MG/ML CARTRIDGE IVPUSH ×3 (06:51→20:48)
[2022-01-09 08:00] VITALS: BP 168/74; PULSE 107; RESP 20; TEMP 36.8; O2SAT 97
[2022-01-09] MEDS: Dextrose 5 % and Lactated Ring 1,000 ML 100 ML IVCONT ×2 (08:13→20:33)
[2022-01-09] MEDS: cefTRIAXone sodium 1 GM in 0.9 % Sodium Chloride 50 ML IV (08:14)
[2022-01-09] MEDS: ondansetron HCL 4 MG/2 ML VIAL IVPUSH ×2 (08:18→22:35)
[2022-01-09] MEDS: Albuterol/Iprat 2.5/0.5MG 3 ML AMPUL.NEB INHALE ×3 (08:19→14:54)
[2022-01-09 08:20] VITALS: PULSE 101; RESP 16; O2SAT 97
--- NOTE | 2022-01-09 09:07 | P.PNGS_ITS ---
Subjective Subjective Date of Service: 01/09/22 Interval history: Patient reports nausea this morning but also reports passing a large bowel movement . She is hungry and would like to try liquids this morning. Physical Exam Vital Signs: Vital Signs: Last Vital Signs Temp 98.2 F 01/09/22 08:00 Pulse 101 H 01/09/22 08:20 Resp 16 01/09/22 08:20 BP 168/74 H 01/09/22 08:00 Pulse Ox 97 01/09/22 08:00 O2 Del Method 01/09/22 08:00 O2 Flow Rate 6 01/09/22 08:00 Oxygen Flow Rate 4 01/08/22 01:51 BMI result Body Mass Index 26.9 Const: General: no acute distress Nutritional Appearance: well nourished Orientation/consciousness: patient oriented x3 Resp: Effort & Inspection: normal respiratory effort GI: Inspection: Yes normal to inspection Palpation (GI): Soft to palpation, nontender, no guarding and not rigid Percussion: Yes normal to percussion Auscultation: normal bowel sounds Neuro: General: patient oriented x3 Extrem: General: Yes no clubbing, cyanosis or edema Objective Data Active Medications Acetaminophen (Acetaminophen 325 Mg Tablet) 650 mg PO QID PRN PRN Reason: headache, temp > 101 Last Admin: 01/08/22 21:36 Dose: 650 mg Documented By: WOO Acetaminophen/Butalbital/Caffeine (Butalb/Acetamin/Caff 50/325/40 Tablet) 1 tab PO Q12H PRN PRN Reason: Headache Last Admin: 01/08/22 21:57 Dose: 1 tab Documented By: WOO Albuterol/Ipratropium (Albuterol/Iprat 2.5/0.5mg 3 Ml Ampul.Neb) 3 ml INHALE RQ4H WHILE AWAKE [facility] Last Admin: 01/09/22 08:19 Dose: 3 ml Documented By: TOBY Albuterol/Ipratropium (Albuterol/Iprat 2.5/0.5mg 3 Ml Ampul.Neb) 3 ml INHALE RQ4H PRN PRN Reason: copd Dextrose/Lactated Ringer's (D5lr) 1,000 mls @ 80 mls/hr IVCONT .[id number] [facility] Last Admin: 01/09/22 08:13 Dose: 100 mls/hr Documented By: JOSE DE JESUS Ceftriaxone Sodium 1 gm/ (Sodium Chloride) 50 mls @ 100 mls/hr IV Q24H [facility] Last Admin: 01/09/22 08:14 Dose: 100 mls/hr Documented By: JOSE DE JESUS Lorazepam (Lorazepam 1 Mg Tablet) 2 mg PO Q6H PRN PRN Reason: Anxiety Last Admin: 01/09/22 06:51 Dose: 2 mg Documented By: WOO Morphine Sulfate (Morphine Sulfate 2 Mg/Ml Cartridge) 2 mg IVPUSH Q6H PRN; Prot ocol PRN Reason: Pain, Severe (Pain Scale 7-10) Last Admin: 01/09/22 06:51 Dose: 2 mg Documented By: WOO Ondansetron HCl (Ondansetron Hcl 4 Mg/2 Ml Vial) 4 mg IVPUSH QID PRN PRN Reason: Nausea Last Admin: 01/09/22 08:18 Dose: 4 mg Documented By: JOSE DE JESUS Oxycodone HCl (Oxycodone Hcl Immed Release 5 Mg Tablet) 5 mg PO Q6H PRN PRN Reason: Pain, Moderate (Pain Scale 4-6 Last Admin: 01/08/22 21:34 Dose: 5 mg Documented By: WOO Pharmacy Consult (Consult Rx Perform Med Rec) 1 each MISCELLANE ONCE PRN PRN Reason: Consult order Zolpidem Tartrate (Zolpidem Tartrate 5 Mg Tablet) 5 mg PO BEDTIME PRN PRN Reason: Insomnia Last Admin: 01/08/22 20:02 Dose: 5 mg Documented By: WOO Labs CBC & Chem 7: 01/08/22 04:28 01/08/22 04:28 Procedures Date of Service Date of Service: 01/09/22 Progress Note: A&P Assessment and plan (1) Partial obstruction of small intestine: Status: Acute Plan Overall patient is improved and is now passing her bowels. Partial obstruction appears to be resolved. I will start her on clear liquids. She should advanced as tolerated. Discharge when tolerating regular diet. Time Spent With Patient Time: Total time spent is greater than 50% in coordination of care (as documented) at patient's floor/unit and/or counseling patient: Quality Stroke Does the patient have a stroke diagnosis?: No VTE Prior VTE?: No VTE Risk Level:: Medical - low VTE Device Contraindication: N/A - Device Ordered VTE Drug Contraindication: Treatment Not Indicated
--- NOTE | 2022-01-09 11:12 | P.PNIM_ITS ---
Subjective Subjective Date of Service: 01/09/22 Interval History: partial sbo/abd pain Review of Systems seems improvi denies any chest pain or sob or nausea or vomitin abd pain improved Physical Exam Vital Signs: Vital Signs: Last Vital Signs Temp 98.2 F 01/09/22 08:00 Pulse 101 H 01/09/22 08:20 Resp 16 01/09/22 08:20 BP 168/74 H 01/09/22 08:00 Pulse Ox 97 01/09/22 08:00 O2 Del Method 01/09/22 08:00 O2 Flow Rate 6 01/09/22 08:00 Oxygen Flow Rate 4 01/08/22 01:51 BMI result Body Mass Index 26.9 Appearance: Alert.? Oriented X3.? not in distress.? cvs: [id number], [id number] res: fair air entry , no rales or wheezin abd: no rebound or guarding ,nt, bs present. ext pulses present , no cyanosis. neuro: axo3 , nonfocal. Objective Data Active Medications Acetaminophen (Acetaminophen 325 Mg Tablet) 650 mg PO QID PRN PRN Reason: headache, temp > 101 Last Admin: 01/08/22 21:36 Dose: 650 mg Documented By: WOO Acetaminophen/Butalbital/Caffeine (Butalb/Acetamin/Caff 50/325/40 Tablet) 1 tab PO Q12H PRN PRN Reason: Headache Last Admin: 01/08/22 21:57 Dose: 1 tab Documented By: WOO Albuterol/Ipratropium (Albuterol/Iprat 2.5/0.5mg 3 Ml Ampul.Neb) 3 ml INHALE RQ4H WHILE AWAKE [facility] Last Admin: 01/09/22 11:08 Dose: 3 ml Documented By: TOBY Albuterol/Ipratropium (Albuterol/Iprat 2.5/0.5mg 3 Ml Ampul.Neb) 3 ml INHALE RQ4H PRN PRN Reason: copd Dextrose/Lactated Ringer's (D5lr) 1,000 mls @ 80 mls/hr IVCONT .[id number] [facility] Last Admin: 01/09/22 08:13 Dose: 100 mls/hr Documented By: JOSE DE JESUS Ceftriaxone Sodium 1 gm/ (Sodium Chloride) 50 mls @ 100 mls/hr IV Q24H [facility] Last Infusion: 01/09/22 09:32 Dose: 100 mls/hr Documented By: JOSE DE JESUS Lorazepam (Lorazepam 1 Mg Tablet) 2 mg PO Q6H PRN PRN Reason: Anxiety Last Admin: 01/09/22 06:51 Dose: 2 mg Documented By: WOO Morphine Sulfate (Morphine Sulfate 2 Mg/Ml Cartridge) 2 mg IVPUSH Q6H PRN; Protocol PRN Reason: Pain, Severe (Pain Scale 7-10) Last Admin: 01/09/22 06:51 Dose: 2 mg Documented By: WOO Ondansetron HCl (Ondansetron Hcl 4 Mg/2 Ml Vial) 4 mg IVPUSH QID PRN PRN Reason: Nausea Last Admin: 01/09/22 08:18 Dose: 4 mg Documented By: JOSE DE JESUS Oxycodone HCl (Oxycodone Hcl Immed Release 5 Mg Tablet) 5 mg PO Q6H PRN PRN Reason: Pain, Moderate (Pain Scale 4-6 Last Admin: 01/08/22 21:34 Dose: 5 mg Documented By: WOO Pharmacy Consult (Consult Rx Perform Med Rec) 1 each MISCELLANE ONCE PRN PRN Reason: Consult order Zolpidem Tartrate (Zolpidem Tartrate 5 Mg Tablet) 5 mg PO BEDTIME PRN PRN Reason: Insomnia Last Admin: 01/08/22 20:02 Dose: 5 mg Documented By: WOO Labs CBC & Chem 7: 01/08/22 04:28 01/08/22 04:28 Assessment and Plan (1) Partial obstruction of small intestine: Status: Acute (2) Chronic obstructive pulmonary disease with hypoxia: Status: Acute Plan 66-year-old female with past medical history of COPD on chronic O2 2 L baseline presents to the hospital with abd pain. Partial bowel obstruction: improvin passed bm today And p.o., pain managemnt,hydration,started clear liquids # ? hx? toacute COPD? / recent possible lung abscess stable , no sob or cough Incentive spirometry, chest physio continue? DuoNebs, iv ceftriaxone day1. - titrate oxygen down to baseline with a goal of O2 between 88-92% given her underlying COPD. # hypertension - stable - continue diltiazem # history of anxiety continue ativan and psych meds . DVT prophylaxis:? Lovenox ongoing inpatient need:abd pain -partial sbo-need monitoring,hydration, plan as per diet toleration Quality Stroke Does the patient have a stroke diagnosis?: No VTE Prior VTE?: No VTE Risk Level:: Medical - low VTE Device Contraindication: N/A - Device Ordered VTE Drug Contraindication: Treatment Not Indicated
--- NOTE | 2022-01-09 11:41 | MHC.CM.PN ---
PT REPORTS SHE LIVES IN A MOTEL WITH HER SHE IS USUALLY INDEPENDENT WITH CARE BUT HE HELPS PRN SHE HAS OXYGEN AT HOME [facility] [employer] PT HAS NO SERVICES SHE IS NOT COVID [facility] PCP: RICARDO NAME HCP ON FILE IMM DELIVERED CURRENT DC PLAN IS HOME WITH NO SERVICES SHE SAYS HER WOULD NOT LET [facility] IN SHE WILL NEED BLS TRANSPORT DUE TO O2 REQUIREMENTS
[2022-01-09] MEDS: Butalb/Acetamin/Caff 50/325/40 TABLET 1 TAB PO (14:18)
[2022-01-09 14:54] VITALS: PULSE 101; RESP 18; O2SAT 98
[2022-01-09 15:33] VITALS: BP 139/55; PULSE 109; RESP 19; TEMP 36.7; O2SAT 98
[2022-01-09 19:10] VITALS: BP 127/57; PULSE 87; RESP 18; TEMP 36.8; O2SAT 100
--- NOTE | 2022-01-09 23:13 | PC.NURSE ---
ordered for magnesiums 2g, checked with physician reason to give, he answered that v-tech, but it wasn't right pt, not given meds. hung it took down right away.
[2022-01-09] MEDS: Zolpidem Tartrate 5 MG TABLET PO (23:25)
[2022-01-09] MEDS: Acetaminophen 325 MG TABLET 650 MG PO (23:25)
[2022-01-10] MEDS: LORazepam 1 MG TABLET 2 MG PO ×3 (06:39→20:57)
[2022-01-10] MEDS: Morphine Sulfate 2 MG/ML CARTRIDGE IVPUSH (06:39)
[2022-01-10] MEDS: Dextrose 5 % and Lactated Ring 1,000 ML 100 ML IVCONT (06:40)
[2022-01-10] MEDS: Albuterol/Iprat 2.5/0.5MG 3 ML AMPUL.NEB INHALE ×2 (07:29→15:35)
[2022-01-10 07:31] VITALS: PULSE 104; RESP 18; O2SAT 98
[2022-01-10 08:00] VITALS: BP 137/62; PULSE 110; RESP 19; TEMP 36.8; O2SAT 98
--- NOTE | 2022-01-10 08:04 | PM.PNGS ---
Subjective Subjective Date of Service: 01/10/22 <Nasrin Vaca PA-C - Last Filed: 01/10/22 08:09> 01/10/22 <Nash Brizuela MD - Last Filed: 01/10/22 08:22> Interval history: Had some nausea yesterday but feels much better this morning. Passing flatus but no BM since yesterday. Wants to eat and go home. <Nasrin Vaca PA-C - Last Filed: 01/10/22 08:09> Physical Exam Vital Signs: Vital Signs: Last Vital Signs Temp 98.3 F 01/10/22 08:00 Pulse 110 H 01/10/22 08:00 Resp 19 01/10/22 08:00 BP 137/62 01/10/22 08:00 Pulse Ox 98 01/10/22 08:00 O2 Del Method 01/10/22 08:00 O2 Flow Rate 4.0 01/10/22 08:00 Oxygen Flow Rate 4 01/08/22 01:51 BMI result Body Mass Index 26.9 <Nasrin Vaca PA-C - Last Filed: 01/10/22 08:09> Const: General: comfortable, no acute distress and alert <AUGUSTO Hutson Last Filed: 01/10/22 08:09> Orientation/consciousness: patient oriented x3 <Nasrin Vaca PA-C - Last Filed: 01/10/22 08:09> Resp: Effort & Inspection: normal respiratory effort <AUGUSTO Hutson Last Filed: 01/10/22 08:09> GI: Inspection: No distended <Nasrin Vaca PA-C - Last Filed: 01/10/22 08:09> Palpation (GI): Soft to palpation, nontender, no guarding and not rigid <AUGUSTO Hutson Last Filed: 01/10/22 08:09> Percussion: Yes normal to percussion <AUGUSTO Hutson Last Filed: 01/10/22 08:09> Skin: General skin exam: no rashes or lesions noted <AUGUSTO Hutson Last Filed: 01/10/22 08:09> Neuro: General: patient oriented x3 <Nasrin Vaca PA-C - Last Filed: 01/10/22 08:09> Extrem: General: Yes no clubbing, cyanosis or edema <Nasrin Vaca PA-C - Last Filed: 01/10/22 08:09> Objective Data Active Medications Acetaminophen (Acetaminophen 325 Mg Tablet) 650 mg PO QID PRN PRN Reason: headache, temp > 101 Last Admin: 01/09/22 23:25 Dose: 650 mg Documented By: DIANNA Acetaminophen/Butalbital/Caffeine (Butalb/Acetamin/Caff 50/325/40 Tablet) 1 tab PO Q12H PRN PRN Reason: Headache Last Admin: 01/09/22 14:18 Dose: 1 tab Documented By: JOSE DE JESUS Albuterol/Ipratropium (Albuterol/Iprat 2.5/0.5mg 3 Ml Ampul.Neb) 3 ml INHALE RQ4H WHILE AWAKE [facility] Last Admin: 01/10/22 07:29 Dose: 3 ml Documented By: FLORENCIO Albuterol/Ipratropium (Albuterol/Iprat 2.5/0.5mg 3 Ml Ampul.Neb) 3 ml INHALE RQ4H PRN PRN Reason: copd Dextrose/Lactated Ringer's (D5lr) 1,000 mls @ 80 mls/hr IVCONT .[id number] [facility] Last Admin: 01/10/22 06:40 Dose: 100 mls/hr Documented By: DIANNA Ceftriaxone Sodium 1 gm/ (Sodium Chloride) 50 mls @ 100 mls/hr IV Q24H [facility] Last Infusion: 01/09/22 09:32 Dose: 100 mls/hr Documented By: JOSE DE JESUS Lorazepam (Lorazepam 1 Mg Tablet) 2 mg PO Q6H PRN PRN Reason: Anxiety Last Admin: 01/10/22 06:39 Dose: 2 mg Documented By: DIANNA Morphine Sulfate (Morphine Sulfate 2 Mg/Ml Cartridge) 2 mg IVPUSH Q6H PRN; Protocol PRN Reason: Pain, Severe (Pain Scale 7-10) Last Admin: 01/10/22 06:39 Dose: 2 mg Documented By: DIANNA Ondansetron HCl (Ondansetron Hcl 4 Mg/2 Ml Vial) 4 mg IVPUSH QID PRN PRN Reason: Nausea Last Admin: 01/09/22 22:35 Dose: 4 mg Documented By: DIANNA Oxycodone HCl (Oxycodone Hcl Immed Release 5 Mg Tablet) 5 mg PO Q6H PRN PRN Reason: Pain, Moderate (Pain Scale 4-6 Last Admin: 01/08/22 21:34 Dose: 5 mg Documented By: WOO Pharmacy Consult (Consult Rx Perform Med Rec) 1 each MISCELLANE ONCE PRN PRN Reason: Consult order Zolpidem Tartrate (Zolpidem Tartrate 5 Mg Tablet) 5 mg PO BEDTIME PRN PRN Reason: Insomnia Last Admin: 01/09/22 23:25 Dose: 5 mg Documented By: DIANNA <Nasrin Vaca PA-C - Last Filed: 01/10/22 08:09> Labs CBC & Chem 7: : 01/08/22 04:28 01/08/22 04:28 <Nasrin Vaca PA-C - Last Filed: 01/10/22 08:09> Procedures Date of Service Date of Service: 01/10/22 <Nasrin Vaca PA-C - Last Filed: 01/10/22 08:09> Progress Note: A&P Assessment and plan (1) Partial obstruction of small intestine: Status: Acute <Nasrin Vaca PA-C - Last Filed: 01/10/22 08:09> Assessment and Plan: 66 year old female admitted with PSBO. Patient is improved and now with GI function. She was started on solid diet yesterday. Had some nausea earlier but now resolved and feeling well. Abd remains soft and nontender. Will reassess after breakfast, if tolerating stable for discharge to home. <Nasrin Vaca PA-C - Last Filed: 01/10/22 08:09> 66 year old female admitted with PSBO. Patient is improved and now with GI function. She was started on solid diet yesterday. Had some nausea earlier but now resolved and feeling well. Abd remains soft and nontender. Will reassess after breakfast, if tolerating stable for discharge to home. SBO is resolved and patient feels improved. Abdomen is soft, nondistended, nontender. Agree with the above assessment and plan. <Nash Brizuela MD - Last Filed: 01/10/22 08:22> Time Spent With Patient Time: Total time spent is greater than 50% in coordination of care (as documented) at patient's floor/unit and/or counseling patient: <Nasrin Vaca PA-C - Last Filed: 01/10/22 08:09> Quality Stroke Does the patient have a stroke diagnosis?: No <Nasrin Vaca PA-C - Last Filed: 01/10/22 08:09> VTE Prior VTE?: No <Nasrin Vaca PA-C - Last Filed: 01/10/22 08:09> VTE Risk Level:: Medical - low <Nasrin Vaca PA-C - Last Filed: 01/10/22 08:09> VTE Device Contraindication: N/A - Device Ordered <Nasrin Vaca PA-C - Last Filed: 01/10/22 08:09> VTE Drug Contraindication: Treatment Not Indicated <Nasrin Vaca PA-C - Last Filed: 01/10/22 08:09>
[2022-01-10] MEDS: cefTRIAXone sodium 1 GM in 0.9 % Sodium Chloride 50 ML IV (10:34)
[2022-01-10] MEDS: Butalb/Acetamin/Caff 50/325/40 TABLET 1 TAB PO ×2 (10:42→23:42)
--- NOTE | 2022-01-10 12:52 | MHC.CM.PN ---
STILL REQUIRES IV ABX DC PLAN 1-2 MORE DAYS
[2022-01-10] MEDS: oxyCODONE HCl Immed Release 5 MG TABLET PO ×2 (13:22→20:52)
--- NOTE | 2022-01-10 14:56 | P.PNIM_ITS ---
Subjective Subjective Date of Service: 01/10/22 Interval History: partial sbo/abd pain Review of Systems seems improving denies any chest pain or sob or nausea or vomitin abd pain improved Physical Exam Vital Signs: Vital Signs: Last Vital Signs Temp 98.3 F 01/10/22 08:00 Pulse 110 H 01/10/22 08:00 Resp 19 01/10/22 08:00 BP 137/62 01/10/22 08:00 Pulse Ox 98 01/10/22 08:00 O2 Del Method 01/10/22 08:00 O2 Flow Rate 4.0 01/10/22 08:00 Oxygen Flow Rate 4 01/08/22 01:51 BMI result Body Mass Index 26.9 Appearance: Alert.? Oriented X3.? not in distress.? cvs: rrr, [id number] res: fair air entry , no rales or wheezin abd: no rebound or guarding ,nt, bs present. ext pulses present , no cyanosis. neuro: axo3 , nonfocal. Objective Data Active Medications Acetaminophen (Acetaminophen 325 Mg Tablet) 650 mg PO QID PRN PRN Reason: headache, temp > 101 Last Admin: 01/09/22 23:25 Dose: 650 mg Documented By: DIANNA Acetaminophen/Butalbital/Caffeine (Butalb/Acetamin/Caff 50/325/40 Tablet) 1 tab PO Q12H PRN PRN Reason: Headache Last Admin: 01/10/22 10:42 Dose: 1 tab Documented By: WON Albuterol/Ipratropium (Albuterol/Iprat 2.5/0.5mg 3 Ml Ampul.Neb) 3 ml INHALE RQ4H WHILE AWAKE [facility] Last Admin: 01/10/22 11:11 Dose: Not Given Documented By: FLORENCIO Non-Admin Reason: pt refused Albuterol/Ipratropium (Albuterol/Iprat 2.5/0.5mg 3 Ml Ampul.Neb) 3 ml INHALE RQ4H PRN PRN Reason: copd Dextrose/Lactated Ringer's (D5lr) 1,000 mls @ 80 mls/hr IVCONT .[id number] [facility] Last Admin: 01/10/22 06:40 Dose: 100 mls/hr Documented By: DIANNA Ceftriaxone Sodium 1 gm/ (Sodium Chloride) 50 mls @ 100 mls/hr IV Q24H [facility] Last Infusion: 01/10/22 11:15 Dose: 0 mls/hr Documented By: WON Lorazepam (Lorazepam 1 Mg Tablet) 2 mg PO Q6H PRN PRN Reason: Anxiety Last Admin: 01/10/22 13:22 Dose: 2 mg Documented By: WON Morphine Sulfate (Morphine Sulfate 2 Mg/Ml Cartridge) 2 mg IVPUSH Q6H PRN; Protocol PRN Reason: Pain, Severe (Pain Scale 7-10) Last Admin: 01/10/22 06:39 Dose: 2 mg Documented By: DIANNA Ondansetron HCl (Ondansetron Hcl 4 Mg/2 Ml Vial) 4 mg IVPUSH QID PRN PRN Reason: Nausea Last Admin: 01/09/22 22:35 Dose: 4 mg Documented By: DIANNA Oxycodone HCl (Oxycodone Hcl Immed Release 5 Mg Tablet) 5 mg PO Q6H PRN PRN Reason: Pain, Moderate (Pain Scale 4-6 Last Admin: 01/10/22 13:22 Dose: 5 mg Documented By: WON Pharmacy Consult (Consult Rx Perform Med Rec) 1 each MISCELLANE ONCE PRN PRN Reason: Consult order Zolpidem Tartrate (Zolpidem Tartrate 5 Mg Tablet) 5 mg PO BEDTIME PRN PRN Reason: Insomnia Last Admin: 01/09/22 23:25 Dose: 5 mg Documented By: DIANNA Labs CBC & Chem 7: 01/08/22 04:28 01/08/22 04:28 Assessment and Plan (1) Partial obstruction of small intestine: Status: Acute (2) Abdominal pain: Status: Acute Plan 66-year-old female with past medical history of COPD on chronic O2 2 L baseline presents to the hospital with abd pain. Partial bowel obstruction: improvin passed bm yesterday And p.o., pain managemnt,diet advanced ,dc fluids . # ? hx? to acute COPD? / recent possible lung abscess stable , no sob or cough Incentive spirometry, chest physio continue? DuoNebs, iv ceftriaxone day1. - titrate oxygen down to baseline with a goal of O2 between 88-92% given her underlying COPD. # hypertension - stable - continue diltiazem # history of anxiety continue ativan and psych meds . DVT prophylaxis:? Lovenox ongoing inpatient need:abd pain -partial sbo-need monitoring,hydration, plan as per diet toleration Quality Stroke Does the patient have a stroke diagnosis?: No VTE Prior VTE?: No VTE Risk Level:: Medical - low VTE Device Contraindication: N/A - Device Ordered VTE Drug Contraindication: Treatment Not Indicated
[2022-01-10 15:24] VITALS: BP 155/78; PULSE 107; RESP 21; TEMP 36.7; O2SAT 98
[2022-01-10 15:38] VITALS: RESP 18; O2SAT 97
[2022-01-10] MEDS: Dextrose 5 % and Lactated Ring 1,000 ML 80 ML IVCONT (16:25)
[2022-01-10 19:15] VITALS: BP 139/68; PULSE 95; RESP 20; TEMP 36.8; O2SAT 99
[2022-01-10] MEDS: Zolpidem Tartrate 5 MG TABLET PO (23:49)
[2022-01-11 04:00] VITALS: BP 166/73; PULSE 100; RESP 17; TEMP 36.5; O2SAT 98
[2022-01-11] MEDS: LORazepam 1 MG TABLET 2 MG PO ×2 (05:27→11:24)
[2022-01-11] MEDS: Acetaminophen 325 MG TABLET 650 MG PO (05:47)
[2022-01-11 08:00] VITALS: BP 142/63; PULSE 100; RESP 18; TEMP 36.8; O2SAT 100
[2022-01-11] MEDS: cefTRIAXone sodium 1 GM in 0.9 % Sodium Chloride 50 ML IV (08:36)
[2022-01-11] MEDS: oxyCODONE HCl Immed Release 5 MG TABLET PO (08:56)
--- NOTE | 2022-01-11 09:21 | PM.PNGS ---
Subjective Subjective Date of Service: 01/11/22 Interval history: Feels well. Tolerating solid diet. Denies nausea/vomiting. Denies abdominal pain. Passing flatus and had bowel movement this morning. Wants to go home. Will group therapy counselor antibiotic for lung abscess at pharmacy. Physical Exam Vital Signs: Vital Signs: Last Vital Signs Temp 98.3 F 01/11/22 08:00 Pulse 100 01/11/22 08:00 Resp 18 01/11/22 08:00 BP 142/63 H 01/11/22 08:00 Pulse Ox 100 01/11/22 08:00 O2 Del Method 01/11/22 08:00 O2 Flow Rate 4.0 01/11/22 08:00 Oxygen Flow Rate 4 01/08/22 01:51 BMI result Body Mass Index 26.9 Const: General: comfortable, no acute distress and alert Orientation/consciousness: patient oriented x3 Resp: Effort & Inspection: normal respiratory effort GI: Inspection: No distended Palpation (GI): Soft to palpation, nontender, no guarding and not rigid Skin: General skin exam: no rashes or lesions noted Neuro: General: patient oriented x3 Extrem: General: Yes no clubbing, cyanosis or edema Objective Data Active Medications Acetaminophen (Acetaminophen 325 Mg Tablet) 650 mg PO QID PRN PRN Reason: headache, temp > 101 Last Admin: 01/11/22 05:47 Dose: 650 mg Documented By: JUAN ANTONIO Acetaminophen/Butalbital/Caffeine (Butalb/Acetamin/Caff 50/325/40 Tablet) 1 tab PO Q12H PRN PRN Reason: Headache Last Admin: 01/10/22 23:42 Dose: 1 tab Documented By: JUAN ANTONIO Albuterol/Ipratropium (Albuterol/Iprat 2.5/0.5mg 3 Ml Ampul.Neb) 3 ml INHALE RQ4H WHILE AWAKE [facility] Last Admin: 01/11/22 07:54 Dose: Not Given Documented By: REEMA Non-Admin Reason: See Note Albuterol/Ipratropium (Albuterol/Iprat 2.5/0.5mg 3 Ml Ampul.Neb) 3 ml INHALE RQ4H PRN PRN Reason: copd Ceftriaxone Sodium 1 gm/ (Sodium Chloride) 50 mls @ 100 mls/hr IV Q24H [facility] Last Infusion: 01/11/22 09:11 Dose: 0 mls/hr Documented By: DIANNA Lorazepam (Lorazepam 1 Mg Tablet) 2 mg PO Q6H PRN PRN Reason: Anxiety Last Admin: 01/11/22 05:27 Dose: 2 mg Documented By: JUAN ANTONIO Morphine Sulfate (Morphine Sulfate 2 Mg/Ml Cartridge) 2 mg IVPUSH Q6H PRN; Protocol PRN Reason: Pain, Severe (Pain Scale 7-10) Last Admin: 01/10/22 06:39 Dose: 2 mg Documented By: DIANNA Ondansetron HCl (Ondansetron Hcl 4 Mg/2 Ml Vial) 4 mg IVPUSH QID PRN PRN Reason: Nausea Last Admin: 01/09/22 22:35 Dose: 4 mg Documented By: DIANNA Oxycodone HCl (Oxycodone Hcl Immed Release 5 Mg Tablet) 5 mg PO Q6H PRN PRN Reason: Pain, Moderate (Pain Scale 4-6 Last Admin: 01/11/22 08:56 Dose: 5 mg Documented By: DIANNA Pharmacy Consult (Consult Rx Perform Med Rec) 1 each MISCELLANE ONCE PRN PRN Reason: Consult order Zolpidem Tartrate (Zolpidem Tartrate 5 Mg Tablet) 5 mg PO BEDTIME PRN PRN Reason: Insomnia Last Admin: 01/10/22 23:49 Dose: 5 mg Documented By: JUAN ANTONIO Labs CBC & Chem 7: 01/08/22 04:28 01/08/22 04:28 Procedures Date of Service Date of Service: 01/11/22 Progress Note: A&P Assessment and plan (1) Partial obstruction of small intestine: Status: Acute Plan 66 year old female admitted with PSBO. Patient is improved, tolerating solid diet with good GI function. Abd remains benign- soft, non distended, nontender. PSBO resolved. Stable for discharge to home today. Has been on rocephin for lung abscess- has not picked up antibiotic prescription from previous admission but states she will on discharge. F/u with PCP in 1 week. Time Spent With Patient Time: Total time spent is greater than 50% in coordination of care (as documented) at patient's floor/unit and/or counseling patient: Quality Stroke Does the patient have a stroke diagnosis?: No VTE Prior VTE?: No VTE Risk Level:: Medical - low VTE Device Contraindication: N/A - Device Ordered VTE Drug Contraindication: Treatment Not Indicated
--- NOTE | 2022-01-11 09:44 | MHC.CM.PN ---
PATIENT IS DC HOME TODAY WITH [facility] FOR [address] PATIENT, UNIT, AND RN AWARE OF PLAN. IMM 01/09 PREVIOUSLY COMPLETED.
--- NOTE | 2022-01-11 13:26 | HO.PM.IMPN ---
Subjective Subjective Date of Service: 01/11/22 Interval History: partial sbo/abd pain Review of Systems seems improved denies any chest pain or sob or nausea or vomitin abd pain improved Physical Exam Vital Signs: Vital Signs: Last Vital Signs Temp 98.3 F 01/11/22 08:00 Pulse 100 01/11/22 08:00 Resp 18 01/11/22 08:00 BP 142/63 H 01/11/22 08:00 Pulse Ox 100 01/11/22 08:00 O2 Del Method 01/11/22 08:00 O2 Flow Rate 4.0 01/11/22 08:00 Oxygen Flow Rate 4 01/08/22 01:51 BMI result Body Mass Index 26.9 Appearance: Alert.? Oriented X3.? not in distress.? cvs: rrr, [id number] res: fair air entry , no rales or wheezin abd: no rebound or guarding ,nt, bs present. ext pulses present , no cyanosis. neuro: axo3 , nonfocal. Objective Data Labs CBC & Chem 7: 01/08/22 04:28 01/08/22 04:28 Assessment and Plan (1) Partial obstruction of small intestine: Status: Acute (2) Abdominal pain: Status: Acute Plan 66-year-old female with past medical history of COPD on chronic O2 2 L baseline presents to the hospital with abd pain. Partial bowel obstruction: improving And p.o., pain managemnt,diet advanced ,dc fluids . # ? hx? to acute COPD? / recent possible lung abscess stable , no sob or cough Incentive spirometry, chest physio continue? DuoNebs, iv ceftriaxone day3-can be switched to cefpodoxime upon discharge. - titrate oxygen down to baseline with a goal of O2 between 88-92% given her underlying COPD. # hypertension - stable - continue diltiazem # history of anxiety continue ativan and psych meds . DVT prophylaxis:? Lovenox ongoing inpatient need:dispo as per parimary team. will sign off ,call us for further questions. d/w primary team. Quality Stroke Does the patient have a stroke diagnosis?: No VTE Prior VTE?: No VTE Risk Level:: Medical - low VTE Device Contraindication: N/A - Device Ordered VTE Drug Contraindication: Treatment Not Indicated
--- NOTE | 2022-01-11 14:33 | PM.DS ---
DS: Providers Provider Date of Service: 01/11/22 Date of admission: 01/08/22 07:21 Date of discharge: 01/11/22 Primary care physician: Nonstaff Physician Attending physician on admission: Nash Brizuela Consults: 01/08/22 07:20 Consult to Hospitalist Routine Consulting Provider: Hospitalist Reason For Exam: COPD, elevated CO2 Attending physician on discharge: Nash Brizuela DS: Diagnosis Discharge Diagnosis (1) Partial obstruction of small intestine: Status: Acute (2) Abdominal pain: Status: Acute DS: Summary Hospital Course Hospital Course: HPI AT TIME OF ADMISSION: Tiffanie Ngo is a 66 year old female Presenting to the emergency department with complaints of right lower quadrant abdominal pain. The patient reports the pain started suddenly approximately 1 day prior to presentation located mainly in the right lower quadrant. The pain is constant and associated with nausea without vomiting. She has a prior history of perforated diverticulitis and previously underwent a sigmoid resection with ileostomy followed by ileostomy closure approximately 2 years ago. She has been well since then denies a previous history of bowel obstructions. Her bowels have been moving daily and she denies constipation or diarrhea. Workup in the emergency department revealed a normal WBC but elevated CO2. CT abdomen and pelvis however revealed loops of dilated small bowel with a transition point at the anastomosis following closure of ileostomy suggestive of a partial small-bowel obstruction. Colon is full of stool. HOSPITAL COURSE: Patient was admitted to the surgical service for management of this partial small-bowel obstruction. She was treated with bowel rest and IV fluids; NGT insertion was withheld. Bowel regimen with miralax was initiated to help with the stool burden noted in colon. Hospitalist consultation was requested for assistance with medical management including COPD. She was started on IV rocephin by medicine for continued treatment of her diagnosed lung abscess from her previous admission in 12/28. She had an uncomplicated hospital stay. She began to pass flatus and had a large bowel movement on HD #1. Her symptoms improved. She was advanced to clear liquids. Her diet was slowly advanced further as tolerated to solid diet. On the day of discharge, she was tolerating a solid diet and was asymptomatic with a benign abd exam. She had good GI function. She felt ready for discharge. She was discharged to home on 01/11/22 in stable condition on her home meds and home O2. She stated she had not previously picked up the prescription for Cefpodoxime she was discharged on during her 12/28 admission and she would when she went home. She is to follow up with her PCP in 1 week. Status at Discharge Functional status at discharge: independent ambulation Overall status at discharge: patient is progressing back to baseline Time Spent with Patient Time attestation: Total time spent providing and/or coordinating discharge services: Discharge coordination time: Greater than 30 minutes Quality: Safe Use of Opioids Does Pt have an Active Cancer Diagnosis on the Problem List?: No Quality: Stroke Does the patient have a stroke diagnosis?: No Physical Exam Vital Signs: Vital Signs: Last Vital Signs Temp 98.3 F 01/11/22 08:00 Pulse 100 01/11/22 08:00 Resp 18 01/11/22 08:00 BP 142/63 H 01/11/22 08:00 Pulse Ox 100 01/11/22 08:00 O2 Del Method 01/11/22 08:00 O2 Flow Rate 4.0 01/11/22 08:00 Oxygen Flow Rate 4 01/08/22 01:51 BMI result Body Mass Index 26.9 Const: General: no acute distress and alert Orientation/consciousness: patient oriented x3 Resp: Effort & Inspection: normal respiratory effort GI: Inspection: No distended Palpation (GI): Soft to palpation, nontender, no guarding and not rigid Percussion: Yes normal to percussion Skin: General skin exam: no rashes or lesions noted Neuro: General: patient oriented x3 Extrem: General: Yes no clubbing, cyanosis or edema Discharge Plan Discharge Anticipated Discharge Date/Time: 01/10/22 10:15 Patient Disposition: Home, Self-Care Discharge Diagnosis: PSBO Referrals: Physician,Nonstaff [Primary Care Provider] - 1 Week Discharge Medications: Continued albuterol sulfate 2.5 mg /3 mL (0.083 %) solution for nebulization 1 vial inhalation Q6H Rx Instructions: TAKE WITH IPROTROPIUM BROMIDE 0.02% bdodmpdfbe-smyydmnpfquev-rklv 50-325-40 mg tablet 1 tab PO Q12H PRN (Reason: Migraine Headache) ipratropium bromide 0.02 % solution 2.5 ml inhalation Q6H Rx Instructions: TAKE WITH ALBUTEROL 0.083% diltiazem HCl 360 mg capsule,extended release 24 hr 1 cap PO DAILY lorazepam 2 mg tablet 1 tab PO Q6H PRN (Reason: anxiety) Atrovent HFA 17 mcg/actuation HFA aerosol inhaler 2 puff inhalation QID PRN (Reason: Shortness Of Breath Or Wheezing) ibuprofen [Advil] 200 mg Tablet 400 mg PO Q8H PRN (Reason: Headache) oxymetazoline 0.05 % [place],Non-Aerosol 2 spray INTRANASAL Q12H PRN (Reason: Congestion) cefpodoxime 200 mg Tablet 200 mg PO BID Rx Instructions: must administer with a meal/food Discharge Orders: Discharge Order (Routine); Ordered 01/11/22 Ordered By: Nasrin Vaca Diet: Advance to usual diet Activity on Discharge: As tolerated Stand Alone Forms: Patient Portal Discharge page Care Plan Goals: Return to baseline health and gradual return to activity. Health Concerns: COPD PSBO Plan of Treatment: Bowel rest Assessment: Improved Discharge Date/Time: 01/11/22 12:00
== END 2022-01-11 12:00 | disposition home or self-care (01) | DRG 390 ==
LOC: HO.ED 07:18 → HO.EDOVER 07:30 → HO.S3 12:40
PROVIDERS: Admitting Provider Surgery; Emergency Provider Emergency Medicine Emergency Medical Services; PCP Internal Medicine Geriatric Medicine; Visit Provider Surgery
DX: K56.600 Partial intestinal obstruction, unspecified as to cause (principal); F41.9 Anxiety disorder, unspecified; I10 Essential (primary) hypertension; J44.9 Chronic obstructive pulmonary disease, unspecified; Z20.822 Contact with and (suspected) exposure to COVID-19; Z91.14 Patient's other noncompliance with medication regimen; Z99.81 Dependence on supplemental oxygen; Z87.891 Personal history of nicotine dependence; Z88.0 Allergy status to penicillin; Z88.2 Allergy status to sulfonamides; Z88.5 Allergy status to narcotic agent; Z79.899 Other long term (current) drug therapy
CPT/HCPCS: 74176; 80053; 81003; 83605; 83690; 85025; 85610; 85730; 87502; 87635; 94640; 99285; J0696; J1170; J2270; J2405; J3475

== ENCOUNTER 2022-01-22 01:14 | Emergency (ER) | payer MEDICARE, SELFPAY ==
[2022-01-22] VITALS (11 sets, daily range): BP systolic 101–172; BP diastolic 50–87; PULSE 66–111; RESP 16–20; TEMP 36.3–36.8; O2SAT 95–100; BMI 28.8
--- NOTE | ~2022-01-22 | XR_ITS ---
EXAMINATION: XR HIP, LEFT CLINICAL INFORMATION: Pain, fall. COMPARISON: CT abdomen/pelvis 01/08/2022. TECHNIQUE: Two views of the left hip. FINDINGS: No acute fractures or malalignment. The femoral heads are well-seated in their respective acetabula. SI joints are symmetric. Pubic symphysis is maintained. Anastomotic sutures are identified in the right lower quadrant. Small pelvic phleboliths are seen. No unexpected radiopaque foreign bodies. XR/XR hip LT w PEL1V IMPRESSION: No acute fractures or malalignment.
--- NOTE | 2022-01-22 01:35 | ED_ITS ---
HPI - Fall General Chief Complaint: Fall Stated Complaint: left hip pain Time Seen by Provider: 01/22/22 01:27 Source: patient and EMS Mode of arrival: EMS Limitations: no limitations History of Present Illness HPI Narrative: Patient comes to the emergency room complaining of left-sided hip pain. Patient coming in by ambulance, reporting that she fell 1 week ago and her hip started hurting 2 days ago. Patient states that she has been walking on it but the pain keeps getting worse. Patient denies any other symptoms. Related Data Home Medications Medication Instructions Recorded Confirmed albuterol sulfate 2.5 mg/3 mL 1 vial inhalation Q6H 10/04/20 01/08/22 (0.083 %) solution for nebulization brdkayawgv-ycpwwpidrxddc-ocliscik 1 tab PO Q12H PRN Migraine Headache 10/04/20 01/08/22 50 mg-325 mg-40 mg tablet diltiazem HCl 360 mg capsule,24 1 cap PO DAILY 07/08/21 01/08/22 hr,extended release lorazepam 2 mg tablet 1 tab PO Q6H PRN anxiety 07/08/21 01/08/22 ipratropium bromide 0.02 % 2.5 ml inhalation Q6H 09/25/21 01/08/22 solution for inhalation ibuprofen 200 mg tablet (Advil) 400 mg PO Q8H PRN Headache 01/08/22 01/08/22 ipratropium bromide 17 2 puff inhalation QID PRN 01/08/22 01/08/22 mcg/actuation HFA aerosol inhaler Shortness Of Breath Or Wheezing (Atrovent HFA) oxymetazoline 0.05 % nasal spray 2 spray intranasal Q12H PRN 01/08/22 01/08/22 Congestion cefpodoxime 200 mg tablet 200 mg PO BID 01/10/22 01/10/22 Allergies Allergy/AdvReac Type Severity Reaction Status Date / Time morphine [MORPHINE] Allergy Severe HIVES, Verified 11/19/21 01:59 high temp, nausea tramadol [TRAMADOL] Allergy Severe SWEATING, Verified 11/19/21 01:59 VOMITING, vomiting Sulfa (Sulfonamide Allergy Unknown Verified 12/25/21 00:19 Antibiotics) amoxicillin [From AUGMENTIN] AdvReac Severe CONSTIPATIO Verified 11/19/21 01:59 N clavulanic acid AdvReac Severe CONSTIPATIO Verified 11/19/21 01:59 [From AUGMENTIN] N codeine [CODEINE] AdvReac Severe NAUSEA Verified 11/19/21 01:59 levofloxacin [From LEVAQUIN] AdvReac Severe CONSTIPATIO Verified 11/19/21 01:59 N Sulfa(Sulfonamide Allergy Unknown Unknown Uncoded 10/04/20 22:39 Antibiotics) Review of Systems Review of Systems: Constitutional : No Weight loss, No Fever, No Chills, No Night Sweats, No Fatigue, No Malaise ENT/Mouth : No Hearing loss, No Ear Pain, No Nasal Congestion, No Sinus Pain, No Hoarseness, No sore throat, No Rhinorrhea, No Swallowing Difficulty Eyes: No Eye Pain, No Swelling, No Redness, No Foreign Body, No Discharge, No Vision Changes Cardiovascular : No Chest Pain, No SOB, No Dyspnea on Exertion, No Orthopnea, No Edema, No Palpitations Respiratory : No Cough, No Sputum, No Wheezing, No Smoke Exposure, No Dyspnea Gastrointestinal : No nausea vomiting or diarrhea. No abdominal Pain, No Hematochezia, No Melena Genitourinary : no irregular bleeding, No Dysuria, No Urinary Frequency, No Hematuria, No Urinary Incontinence, No Urgency, No Flank Pain, No Urinary Flow Changes, No Hesitancy Musculoskeletal : Complaining of left-sided hip pain Skin : No Skin Lesions, No rash Neuro : No Weakness, No Numbness, No Paresthesias, No Loss of Consciousness, No Dizziness, No Headache Psych : No Anxiety/Panic, No Depression, No SI/HI/AH/VH, No Social Issues, Heme/Lymph: No Bruising, No Bleeding,No Lymphadenopathy Endocrine : No Polyuria, No Polydipsia, No Temperature Intolerance [facility] Past Medical History Medical History Acute and chronic respiratory failure with hypoxia Anxiety Asthma Bronchitis Chronic obstructive pulmonary disease with hypoxia Chronic respiratory failure COPD (chronic obstructive pulmonary disease) Diverticulitis Dizziness Emphysema lung Hypertension Otitis media Pulmonary abscess Vertigo Surgical History History of breast surgery History of laparotomy Family History Family History Other No family history of coronary artery disease Social History Social History Household Members: Spouse Housing: Other Housing Other:: room in a motel Do you presently have visiting nurse or other home services: No Alcohol intake: never Patient Tobacco Use Status: Former Tobacco user Smoked in Last 30 Days: No Use of substances other than those prescribed or required for medical reasons: Yes Substance Use Type: Marijuana Advance Directives: Yes Advance Directives on File: Yes Advance Directives Date on File: 07/09/21 service: No Current occupational status: disabled Physical Exam Vital Signs: Vital Signs: Last Vital Signs Temp 97.3 F 01/22/22 02:49 Pulse 94 01/22/22 02:52 Resp 18 01/22/22 02:49 BP 135/65 01/22/22 02:52 Pulse Ox 99 01/22/22 02:49 O2 Del Method 01/22/22 02:49 O2 Flow Rate 5 01/22/22 02:49 Oxygen Flow Rate 5 01/22/22 01:24 BMI result Body Mass Index 28.8 Const: Other: Appearance: Alert. Oriented X3. No acute distress. Eyes: Pupils equal, round and reactive to light. ENT: Pharynx normal. Neck: Normal inspection. Neck supple. No lymph nodes noted. No crepitus CVS: Normal heart rate and rhythm. Pulses normal. Normal S1 and S2 Respiratory: No respiratory distress. Breath sounds normal. No Wheezing. No rales Abdomen: Soft and nontender. No rigidity. No distention. Skin: Skin warm and dry. Normal skin color. Normal skin turgor. Extremities: No edema, complaining of left-sided hip pain on palpation, no deformity, no ecchymosis Neuro: Oriented X 3. No motor deficit. No sensory deficit. Moving all extremities. No slurred speech. CN 2 through 12 grossly intact Psych: calm, cooperative, normal affect Course Course Course Narrative: Patient request mi morphine, it is under her list of allergies but states she is not allergic to it, only tramadol. X-rays pending. X-rays negative, although patient has been walking around her house the last week, all of a sudden states that she is unwilling to try walking because it hurts too much, requesting physical therapy and Case Management. Patient requesting something to help her sleep. Case management and physical therapy consult pending Medications Administered Discontinued Medications Generic Name Dose Route Start Last Admin Trade Name Freq PRN Reason Stop Dose Admin Lorazepam 2 mg 01/22/22 02:20 01/22/22 02:27 Lorazepam 1 Mg Tablet PO 01/22/22 02:21 2 mg ONCE ONE Administration Morphine Sulfate 2 mg 01/22/22 01:32 01/22/22 02:01 Morphine Sulfate 2 Mg/Ml Cartridge IM 01/22/22 01:33 2 mg ONCE ONE Administration Protocol Medical Decision Making Differential Diagnosis Differential Diagnoses: The differential diagnosis associated with the presentation includes (Hip fracture, hip contusion, hip dislocation) Admission/Observation Consideration of admission/observation: Escalation of care including admission/observation considered (Patient is on observation in the emergency room. Patient is to be evaluated by Case Management and Physical therapy.) Lab Data MDM Lab Attestation statement: I reviewed the patient's lab results. (EKG negative with a negative troponin) Labs: Lab Results 01/22/22 Range/Units 02:35 Troponin I High Sens < 3.5 (<3.5-17.0) ng/L Independent Interpretation I performed an independent interpretation of an: EKG (My interpretation is heart rate 90, sinus rhythm, no ST segment depression or elevation, no T-wave inversion, QTC 442) and Plain X-Ray (Hip x-rays interpreted by me, no acute fracture) Radiology Impression Discussion of test interpretation with radiology: I have reviewed the radiologist's reading. Radiologist Impression: No acute fractures or malalignment. The femoral heads are well-seated in their respective acetabula. SI joints are symmetric. Pubic symphysis is maintained. Anastomotic sutures are identified in the right lower quadrant. Small pelvic phleboliths are seen. No unexpected radiopaque foreign bodies. XR/XR hip LT w PEL1V IMPRESSION: No acute fractures or malalignment. Discharge Plan Discharge Clinical Impression: Acute pain of left hip Patient Disposition: Still a Patient Prescriptions: No Action albuterol sulfate 2.5 mg /3 mL (0.083 %) solution for nebulization 1 vial inhalation Q6H Rx Instructions: TAKE WITH IPROTROPIUM BROMIDE 0.02% nwcarnbavv-pcbfefzjcillw-kzyi 50-325-40 mg tablet 1 tab PO Q12H PRN (Reason: Migraine Headache) ipratropium bromide 0.02 % solution 2.5 ml inhalation Q6H Rx Instructions: TAKE WITH ALBUTEROL 0.083% diltiazem HCl 360 mg capsule,extended release 24 hr 1 cap PO DAILY lorazepam 2 mg tablet 1 tab PO Q6H PRN (Reason: anxiety) Atrovent HFA 17 mcg/actuation HFA aerosol inhaler 2 puff inhalation QID PRN (Reason: Shortness Of Breath Or Wheezing) ibuprofen [Advil] 200 mg Tablet 400 mg PO Q8H PRN (Reason: Headache) oxymetazoline 0.05 % [place],Non-Aerosol 2 spray INTRANASAL Q12H PRN (Reason: Congestion) cefpodoxime 200 mg Tablet 200 mg PO BID Rx Instructions: must administer with a meal/food
[2022-01-22] MEDS: Morphine Sulfate 2 MG/ML CARTRIDGE IM (02:01)
--- NOTE | 2022-01-22 02:03 | PC.NURSE ---
pt repositioned on r side. pt reports 10/10 pain. this rn medicated pt according to mar
--- NOTE | 2022-01-22 02:20 | ECG_ITS ---
Test Reason : FALL Blood Pressure : / mmHG Vent. Rate : 090 BPM Atrial Rate : 090 BPM P-R Int : 130 ms QRS Dur : 076 ms QT Int : 362 ms P-R-T Axes : 028 029 059 degrees QTc Int : 442 ms Normal sinus rhythm Normal ECG When compared with ECG of 22-DEC-2021 18:34, No significant change was found Referred By: Becky Caldera Electronically Signed By:GABI BALBUENA
[2022-01-22] MEDS: LORazepam 1 MG TABLET 2 MG PO ×3 (02:27→16:36)
[2022-01-22 03:02] LABS: Troponin-I High Sensitivity < 3.5 ng/L (<3.5-17.0)
[2022-01-22] MEDS: traZODone HCL 100 MG TABLET PO (03:10)
--- NOTE | 2022-01-22 03:14 | PC.NURSE ---
pt medicated according to apr. pt requested sandwich at this time. this rn provided pt with sandwich. no new requests at this time
--- NOTE | 2022-01-22 05:29 | PC.NURSE ---
pt positioned on r side. reported 10/07 pain at this time. Dr. Caldera made aware. awaiting additional orders.VS stable. pt reports not being able to sleep much, though feeling more relaxed at this time
[2022-01-22] MEDS: oxyCODONE HCl Immed Release 5 MG TABLET PO ×2 (05:33→15:44)
--- NOTE | 2022-01-22 05:34 | PC.NURSE ---
pt medicated according to apr. no new requests from pt at this time
--- NOTE | 2022-01-22 09:28 | PHA.MEDREC ---
Pharmacy Consult ? Medication Reconciliation Pharmacy has completed the medication reconciliation. Patient states they were on cefpodoxime 200 mg po bid, but stopped taking it ~1 week ago because they started feeling better. Did not finish course of antibiotic therapy.
[2022-01-22] MEDS: Albuterol/Iprat 2.5/0.5MG 3 ML AMPUL.NEB INHALE (11:49)
[2022-01-22] MEDS: dilTIAZem HCL CD 180 MG CAP.ER.24H 360 MG PO (12:13)
--- NOTE | 2022-01-22 13:59 | PC.NURSE ---
Pt is alert/oriented. Sitting up in bed, states hip pain 9/10. Also reporting anxiety, Medicated early in shift as charted. Speaking full sentences. Remains on home 02 amount of 4.5lpm via nc, no diff breathing noted.
--- NOTE | 2022-01-22 15:23 | PC.NURSE ---
Pt currently sitting up on stretcher, requesting pain medications. This RN offered pt PRN tylenol or ibuprofen to which the pt stated vicodin or oxycodone, that ibuprofen and Tylenol stuff doesn't work . This RN explained that she would ask the PA if something more could be added. Pt states I also need my lorazepam at quarter after four, that is when it is due
--- NOTE | 2022-01-22 15:25 | MHC.CM.PN ---
Met with patient after receiving a CM consult. The patient said that PT told her that she cant walk because she is SOB. She stated that she could not speak with T/W because she is too sob and needs a treatment. The patient was speaking in full sentences. PT had not evaluated the patient. The PT attempted multiple times to eval the patient today. Ultimately the patient refused the eval. CM will follow up with patient re PT eval.
--- NOTE | 2022-01-22 16:01 | PC.NURSE ---
this RN and case management spoke with pt about discharge home, pt hesitant but on board
== END 2022-01-22 19:32 | disposition home or self-care (01) ==
PROVIDERS: Emergency Provider Emergency Medicine; PCP Internal Medicine Geriatric Medicine
DX: G89.11 Acute pain due to trauma (principal); M25.552 Pain in left hip; I10 Essential (primary) hypertension; F12.90 Cannabis use, unspecified, uncomplicated; J44.9 Chronic obstructive pulmonary disease, unspecified; Z99.81 Dependence on supplemental oxygen; Z79.899 Other long term (current) drug therapy
CPT/HCPCS: 36415; 73502; 84484; 93005; 94640; 99285; J2270

== ENCOUNTER 2022-02-04 01:58 | Emergency (ER) | payer MEDICARE, SELFPAY ==
[2022-02-04 02:10] VITALS: BP 155/68; BP 158/82; PULSE 89; PULSE 90; RESP 18; TEMP 36.5; O2SAT 95; O2SAT 98; BMI 22.9
--- NOTE | 2022-02-04 02:18 | ED.GENADULT ---
HPI - General Adult General Chief complaint: General Medical Stated complaint: abd pain, agitated Time Seen by Provider: 02/04/22 02:09 Source: patient and EMS Mode of arrival: EMS Limitations: no limitations History of Present Illness HPI narrative: 66-year-old female came in by ambulance for evaluation of an abdominal pain, patient feels her urinary bladder is distended and patient is unable to urinate ?my [facility] [employer] telling me there is a tear in my bladder and I am scared ?patient otherwise has no hallucination, no SI, no HI. Patient with a strong history of anxiety take Ativan for anxiety control. No vomiting, no nausea, no diarrhea, no dysuria, no frequency urination, no fever, no chills. Patient appeared very anxious. Related Data Home Medications Medication Instructions Recorded Confirmed albuterol sulfate 2.5 mg/3 mL 1 vial inhalation Q6H 10/04/20 01/22/22 (0.083 %) solution for nebulization [id number] 2 tab PO Q12H PRN Migraine Headache 10/04/20 01/22/22 50 mg-325 mg-40 mg tablet diltiazem HCl 360 mg capsule,24 1 cap PO DAILY 07/08/21 01/22/22 hr,extended release lorazepam 2 mg tablet 1 tab PO Q6H PRN anxiety 07/08/21 01/22/22 ipratropium bromide 0.02 % 2.5 ml inhalation Q6H 09/25/21 01/22/22 solution for inhalation ibuprofen 200 mg tablet (Advil) 400 mg PO Q8H PRN Headache 01/08/22 01/22/22 ipratropium bromide 17 2 puff inhalation QID PRN 01/08/22 01/22/22 mcg/actuation HFA aerosol inhaler Shortness Of Breath Or Wheezing (Atrovent HFA) oxymetazoline 0.05 % nasal spray 2 spray intranasal Q12H PRN 01/08/22 01/22/22 Congestion diphenhydramine HCl 25 mg tablet 50 mg PO BEDTIME PRN Insomnia 01/22/22 01/22/22 (Benadryl Allergy) Allergies Allergy/AdvReac Type Severity Reaction Status Date / Time morphine [MORPHINE] Allergy Severe HIVES, Verified 11/19/21 01:59 high temp, nausea tramadol [TRAMADOL] Allergy Severe SWEATING, Verified 11/19/21 01:59 VOMITING, vomiting Sulfa (Sulfonamide Allergy Unknown Verified 12/25/21 00:19 Antibiotics) amoxicillin [From AUGMENTIN] AdvReac Severe CONSTIPATIO Verified 11/19/21 01:59 N clavulanic acid AdvReac Severe CONSTIPATIO Verified 11/19/21 01:59 [From AUGMENTIN] N codeine [CODEINE] AdvReac Severe NAUSEA Verified 11/19/21 01:59 levofloxacin [From LEVAQUIN] AdvReac Severe CONSTIPATIO Verified 11/19/21 01:59 N Sulfa(Sulfonamide Allergy Unknown Unknown Uncoded 10/04/20 22:39 Antibiotics) Review of Systems Review of Systems: All other systems are reviewed and are negative Constitutional: Reports as per HPI and Reports no additional constitutional complaints Eyes: Reports as per HPI and Reports no additional eye complaints Reports system reviewed and no additional complaints, except as documented Cardiovascular: Reports as per HPI and Reports no additional cardiovascular complaints Respiratory: Reports as per HPI and Reports no additional respiratory complaints Gastrointestinal: Reports as per HPI and Reports no additional gastrointestinal complaints Genitourinary: Reports no additional female genitourinary complaints Musculoskeletal: Reports no additional musculoskeletal complaints Skin/Breast: Reports system reviewed and no additional complaints, except as docu Psychiatric: Reports no additional psychiatric complaints Endocrine: Reports no additional endocrine complaints Hematologic/Lymphatic: Reports no additional hematologic/lymphatic complaints Allergic/Immunologic: Reports no additional allergic/immunologic complaints Reports system reviewed and no additional complaints, except as documented and Reports Abnormal speech present [facility] Past Medical History Medical History Acute and chronic respiratory failure with hypoxia Anxiety Asthma Bronchitis Chronic obstructive pulmonary disease with hypoxia Chronic respiratory failure COPD (chronic obstructive pulmonary disease) Diverticulitis Dizziness Emphysema lung Hypertension Otitis media Pulmonary abscess Vertigo Surgical History History of breast surgery History of laparotomy Family History Family History Other No family history of coronary artery disease Social History Social History Household Members: Spouse Housing: Other Housing Other:: room in a motel Do you presently have visiting nurse or other home services: No Alcohol intake: never Patient Tobacco Use Status: Former Tobacco user Substance Use Type: Marijuana Advance Directives: Yes Advance Directives on File: Yes Advance Directives Date on File: 07/09/21 service: No Current occupational status: disabled Physical Exam ED Vital Signs: Vital Signs - 24 hr 02/04/22 02:10 Temperature 97.7 F Pulse Rate 89 Respiratory Rate 18 Blood Pressure 155/68 H Pulse Oximetry 98 Oxygen Delivery Method Nasal Cannula BMI result Body Mass Index 22.9 Vital signs have been reviewed as appeared to be correct. Blood pressure normal. Heart rate normal. Respiration rate normal. Temperature normal. Oxygen saturation normal. Appearance: Alert. Oriented X3. No acute distress. Head: Normal external exam. Normocephalic. Atraumatic. No Frost signs noted. No raccoon eyes noted Eyes: PERRLA. EOMI. Conjunctiva and sclera normal. Eyelids normal. ENT: TM's Normal. Pharynx normal. Uvula midline. Moist mucous membranes. No trismus noted. No drooling noted. No muffled voice noted. Neck: Normal inspection. Neck supple. FROM. No adenopathy. Thyroid Normal. No meningeal signs. No neck mass noted. CVS: Normal heart rate and rhythm. Heart sound normal. No murmurs noted. Pulses normal throughout. Respiratory: No respiratory distress. Painless inspiration. Breath sounds normal. No wheezes/rales/rhonchi noted. Chest nontender. No accessory muscle usage noted or decreased air movement noted. Abdomen: Soft and nontender. Bowel sounds normal in all 4 quadrants. No distention noted. No organomegaly noted. No visible injury noted. Back: No CVA tenderness. Full range of motion noted. Skin: Skin warm and dry. Normal skin color. Normal skin turgor. No rashes/lesions/lacerations noted. Extremities: No lower extremity edema. Extremities exhibit normal range of motion. Extremities nontender. Neuro: Oriented X 3. Cranial nerve exam: II-XII are grossly intact No motor deficit. No sensory deficit. Reflexes normal. Patient Orientation: Person, Place, Time and Situation, okay hygiene and grooming. Fair eye contact, attentive, no tics or tremors. Level of Consciousness: Awake, Appropriate and Alert Patient Behavior: Appropriate, Guarded, Cooperative and Anxious Mood Description: Constricted, Blunted and Apprehensive Affect Description: Constricted, Blunted and Apprehensive Patient Cognition Impaired: No Ability to Follow Directions: Excellent Speech Pattern: Clear, Appropriate and Spontaneous Speech, nonpressured, spontaneous with regular rate and rhythm, normal volume and prosody. No dysarthria. Memory Description: Intact, Immediate Intact and Short Term Intact Hallucinations: None Delusions: Not Present Thought Process: Intact Thought Content: positive for Intact, positive for Logical, denies Suicidal Ideation and denies Homicidal Ideation. Depressive Symptoms: Not present. Judgement and Insight: Limited but adequate. Course Course Course Narrative: 66-year-old female came in initially for feeling urinary bladder distension, anxiety. Patient has unremarkable exam, labs are unremarkable, patient was observed with vital signs stable. Patient's symptoms improved after Ativan given in the ED. Will safely discharge the patient home and follow up with PCP. Medications Administered Discontinued Medications Generic Name Dose Route Start Last Admin Trade Name Freq PRN Reason Stop Dose Admin Acetaminophen 650 mg 02/04/22 02:15 02/04/22 02:48 Acetaminophen 325 Mg Tablet PO 02/04/22 02:16 650 mg ONCE ONE Administration Lorazepam 2 mg 02/04/22 03:50 02/04/22 03:54 Lorazepam 1 Mg Tablet PO 02/04/22 03:51 2 mg ONCE ONE Administration Medical Decision Making Differential Diagnosis Differential Diagnoses: The differential diagnosis associated with the presentation includes (Urinary tension/UTI/anxiety/acute psychosis.) Lab Data MDM Lab Attestation statement: I reviewed the patient's lab results. Result Diagrams: 02/04/22 02:25 02/04/22 02:25 Labs: Lab Results 02/04/22 02/04/22 02/04/22 Range/Units 02:25 02:25 03:42 WBC 9.0 (4.8-10.8) X10*3/uL RBC 4.57 (4.20-5.50) X10*6/uL Hgb 11.9 L (12.0-16.0) g/dl Hct 38.3 (37.0-47.0) % MCV 83.8 (80.0-98.0) fL MCH 26.0 L (27.0-33.0) pg MCHC 31.1 (31.0-35.0) g/dl RDW 15.9 (11.0-16.0) % Plt Count 291 (160-400) X10*3/uL MPV 9.0 L (9.4-12.3) fL Immature Gran % (Auto) 0.2 (0.0-0.4) % Neut % (Auto) 75.1 H (45-73) % Lymph % (Auto) 15.5 L (20-40) % [place] % (Auto) 7.8 (2-11) % Eos % (Auto) 0.8 (0-4) % Baso % (Auto) 0.6 (0-2) % Lymph # (Auto) 1.4 (1.2-4.9) X10*3/uL [place] # (Auto) 0.7 (0.1-1.2) X10*3/uL Eos # (Auto) 0.1 (0.0-0.4) X10*3/uL Baso # (Auto) 0.1 (0.0-0.2) X10*3/uL Abs Immat Gran (auto) 0.02 (0.00-0.03) X10*3/uL Absolute Neuts (auto) 6.7 (2.0-8.3) x10*3/uL Absolute Nucleated RBC 0.000 (0.0-0.012) X10*3/uL Nucleated RBC % (auto) 0.0 (0.0-0.2) /100WBC Sodium 138 (135-145) mmol/L Potassium 4.3 (3.3-5.1) mmol/L Chloride 96 (96-108) mmol/L Carbon Dioxide 31 H (22-29) mmol/L Anion Gap 15 (12-20) BUN 10 (9-16) mg/dL Creatinine 0.66 (0.5-1.4) mg/dL Estim Creat Clear Calc 76.4 Estimated GFR > 60 Random Glucose 115 (60-115) mg/dL Calcium 10.3 H D (8.4-10.2) mg/dL Total Bilirubin 0.4 (0.0-1.0) mg/dL Direct Bilirubin < 0.2 (0.0-0.5) mg/dL AST 23 (5-31) U/L ALT 15 (0-31) U/L Alkaline Phosphatase 95 (39-117) U/L Total Protein 7.7 (6.5-8.0) g/dL Albumin 4.6 (3.5-5.0) g/dL Lipase 10 (8-78) U/L Urine Color Yellow Urine Appearance Clear Urine pH 5.5 (5.0-9.0) Ur Specific [place] 1.010 (1.005-1.025) Urine Protein 30 (1+) H (Neg-Trace) mg/dL Urine Glucose (UA) Negative (Negative) mg/dL Urine Ketones Negative (Negative) mg/dL Urine Blood Negative (Negative) Urine Nitrite Negative (Negative) Ur Leukocyte Esterase Negative (Negative) Urine RBC 0-2 (0-2) /HPF Urine WBC 0-5 (0-5) /HPF Ur Squamous Epith Cells 0-2 (0-2) /HPF Urine Bacteria None Seen (None Seen) Hyaline Casts 0-2 (0-2) /LPF Discharge Plan Discharge Clinical Impression: Anxiety Patient Disposition: Home, Self-Care Instructions: Anxiety (ED) Prescriptions: No Action albuterol sulfate 2.5 mg /3 mL (0.083 %) solution for nebulization 1 vial inhalation Q6H Rx Instructions: TAKE WITH IPROTROPIUM BROMIDE 0.02% rsgbqudlqv-edhjqurhlmkyv-geew 50-325-40 mg tablet 2 tab PO Q12H PRN (Reason: Migraine Headache) Rx Instructions: not to exceed 6 tabs/24 hours ipratropium bromide 0.02 % solution 2.5 ml inhalation Q6H Rx Instructions: TAKE WITH ALBUTEROL 0.083% diltiazem HCl 360 mg capsule,extended release 24 hr 1 cap PO DAILY lorazepam 2 mg tablet 1 tab PO Q6H PRN (Reason: anxiety) Atrovent HFA 17 mcg/actuation HFA aerosol inhaler 2 puff inhalation QID PRN (Reason: Shortness Of Breath Or Wheezing) ibuprofen [Advil] 200 mg Tablet 400 mg PO Q8H PRN (Reason: Headache) oxymetazoline 0.05 % [place],Non-Aerosol 2 spray INTRANASAL Q12H PRN (Reason: Congestion) diphenhydramine HCl [Benadryl Allergy] 25 mg Tablet 50 mg PO BEDTIME PRN (Reason: Insomnia) Referrals: Physician,Unknown J [Primary Care Provider] -
[2022-02-04 02:30] LABS: MANUAL DIFF FLAG NO
[2022-02-04 02:31] LABS: Basophils Absolute Auto 0.1 X10*3/uL (0.0-0.2); Basophils Percent Auto 0.6 % (0-2); Eosinophils Absolute Auto 0.1 X10*3/uL (0.0-0.4); Eosinophils Percent Auto 0.8 % (0-4); Hematocrit 38.3 % (37.0-47.0); Hemoglobin 11.9 g/dl (12.0-16.0); Imm Gran Abs Auto 0.02 X10*3/uL (0.00-0.03); Imm Gran Pct Auto 0.2 % (0.0-0.4); Lymphocytes Absolute Auto 1.4 X10*3/uL (1.2-4.9); Lymphocytes Percent Auto 15.5 % (20-40); Mean Corpuscular HGB Conc 31.1 g/dl (31.0-35.0); Mean Corpuscular Volume 83.8 fL (80.0-98.0); Monocytes Absolute Auto 0.7 X10*3/uL (0.1-1.2); Monocytes Percent Auto 7.8 % (2-11); Neutrophils Absolute Auto 6.7 x10*3/uL (2.0-8.3); Neutrophils Percent Auto 75.1 % (45-73); Platelet Count 291 X10*3/uL (160-400); Red Blood Count 4.57 X10*6/uL (4.20-5.50); Red Cell Distribution Width 15.9 % (11.0-16.0)
[2022-02-04] MEDS: Acetaminophen 325 MG TABLET 650 MG PO (02:48)
[2022-02-04 02:53] LABS: Alanine Aminotransferase 15 U/L (0-31); Albumin Level 4.6 g/dL (3.5-5.0); Alkaline Phosphatase 95 U/L (39-117); Anion Gap 15 (12-20); Aspartate Amino Transferase 23 U/L (5-31); Bilirubin Direct < 0.2 mg/dL (0.0-0.5); Bilirubin Total 0.4 mg/dL (0.0-1.0); Blood Urea Nitrogen 10 mg/dL (9-16); Calcium 10.3 mg/dL (8.4-10.2); Carbon Dioxide 31 mmol/L (22-29); Chloride 96 mmol/L (96-108); Creatinine Clr Calc Pharmacy 76.4; Estimated Glomerular Filt Rate > 60; Glucose Random 115 mg/dL (60-115); Lipase 10 U/L (8-78); Potassium 4.3 mmol/L (3.3-5.1); Sodium 138 mmol/L (135-145); Total Protein 7.7 g/dL (6.5-8.0)
[2022-02-04 03:48] LABS: Appearance Urine Clear; Color Urine Yellow; Glucose Urine UA Negative (Negative); Leukocyte Esterase Urine Negative (Negative); Nitrite Urine Negative (Negative); PH 5.5 (5.0-9.0); UMIC TRIGGER UACC YES; Urine Blood Negative (Negative); Urine Ketones Negative (Negative); Urine Protein 30 (1+) mg/dL (Neg-Trace)
[2022-02-04 03:51] LABS: Bacteria Urine None Seen (None Seen); Hyaline Casts Urine 0-2 /LPF (0-2); RBC Urine 0-2 /HPF (0-2); Squamous Epithelial Cell Urine 0-2 /HPF (0-2); WBC Urine 0-5 /HPF (0-5)
[2022-02-04] MEDS: LORazepam 1 MG TABLET 2 MG PO (03:54)
--- NOTE | 2022-02-04 03:56 | PC.NURSE ---
Pt. sitting in bed, respirations are even and unlabored. Pt. reports a lot of anxiety and states she hasn't taken her lorazepam for 13 hours. Pt. denies SI, HI, AH and VH. Pt, however, can be seen talking to someone who isn't visible in the room. Pt. medicated with lorazepam per APR.
--- NOTE | 2022-02-04 05:19 | MHC.EDTECH ---
Corey called at 0518 for a bls transfer back to home per . Booked for 0700AM. Mikey aware
== END 2022-02-04 07:41 | disposition home or self-care (01) ==
PROVIDERS: Emergency Provider Emergency Medicine
DX: F41.1 Generalized anxiety disorder (principal); F43.0 Acute stress reaction; N32.89 Other specified disorders of bladder; Z79.899 Other long term (current) drug therapy; Z87.891 Personal history of nicotine dependence
CPT/HCPCS: 36415; 51798; 80048; 80076; 81001; 83690; 85025; 99283; 99284

== ENCOUNTER 2022-03-01 17:22 | Inpatient (IN) | payer MEDICARE, SELFPAY ==
[2022-03-01] VITALS (8 sets, daily range): BP systolic 107–205; BP diastolic 51–109; PULSE 82–127; RESP 18–28; TEMP 36.6–36.7; O2SAT 91–100; BMI 21.2
--- NOTE | ~2022-03-01 | CT_ITS ---
EXAMINATION: CT HEAD WITHOUT CONTRAST CLINICAL INFORMATION: Acute mental status change COMPARISON: Head CT 09/04/2021 TECHNIQUE: Imaging was performed from the skull base to vertex without intravenous administration of contrast. This CT examination was performed using dose optimization techniques as appropriate, variously including the following: *Automated exposure control *Adjustment of mA and/or kV according to patient size (this includes techniques or standardized protocols for targeted exams where dose is matched to indication/reason for exam; i.e. extremities or head) *Use of iterative reconstruction technique Total exam dose length product: 581 mGy-cm FINDINGS: No intra or extra-axial fluid collection, hemorrhage, or mass. No ventriculomegaly. No midline shift or herniation. Basal cisterns are patent. Trent-white matter differentiation is maintained. No territorial encephalomalacia. Proportional prominence of the ventricles and sulcal spaces is consistent with mild volume loss. Patchy periventricular and deep white matter hypoattenuation is consistent with moderate small vessel ischemic changes. No calvarial fracture or soft tissue abnormality. Small mucous retention cyst in the right ethmoid air cell. Paranasal sinuses and mastoid air cells are otherwise normally aerated. Right middle turbinate susana bullosa noted with mucous or mucosal thickening within the aerated turbinate. CT/CT head/brain wo IV con IMPRESSION: No acute intracranial pathology.
--- NOTE | ~2022-03-01 | XR_ITS ---
EXAMINATION: XR CHEST CLINICAL INFORMATION: Shortness of breath, COPD COMPARISON: CTA chest on 12/22/2021 TECHNIQUE: Frontal view of the chest was obtained. FINDINGS: The cardiac silhouette is normal. There is mild diffuse bronchial wall thickening and mild chronic interstitial disease. There are no areas of consolidation. There are no pleural effusions or pneumothoraces. The bones and soft tissues are unremarkable for the patient's age. XR/XR chest 1V IMPRESSION: No acute disease.
--- NOTE | 2022-03-01 17:44 | PC.NURSE ---
66 y/o f BIBA for COPD exacerbation, in gown, on monitor, on on 5L o2 at home baseline. respiratory at bedside. awaiting
--- NOTE | 2022-03-01 17:56 | ED.SOB ---
HPI - SOB/Dyspnea General Chief Complaint: Dyspnea Stated Complaint: difficulty breathing Time Seen by Provider: 03/01/22 17:45 Source: EMS Mode of arrival: EMS Limitations: altered mental status History of Present Illness HPI Narrative: Patient comes to the emergency room via EMS. At this time, the nurses are not sure who got report from EMS, and with the know where the patient came from or who called the ambulance. The patient is too confused to give any history, patient states that she is short of breath but cannot give any significant history. Related Data Home Medications Medication Instructions Recorded Confirmed albuterol sulfate 2.5 mg/3 mL 1 vial inhalation Q6H 10/04/20 03/01/22 (0.083 %) solution for nebulization [id number] 2 tab PO Q12H PRN Migraine Headache 10/04/20 03/01/22 50 mg-325 mg-40 mg tablet diltiazem HCl 360 mg capsule,24 1 cap PO DAILY 07/08/21 03/01/22 hr,extended release lorazepam 2 mg tablet 1 tab PO Q6H PRN anxiety 07/08/21 03/01/22 ipratropium bromide 0.02 % 2.5 ml inhalation Q6H 09/25/21 03/01/22 solution for inhalation ibuprofen 200 mg tablet (Advil) 400 mg PO Q8H PRN Headache 01/08/22 03/01/22 ipratropium bromide 17 2 puff inhalation QID PRN 01/08/22 03/01/22 mcg/actuation HFA aerosol inhaler Shortness Of Breath Or Wheezing (Atrovent HFA) oxymetazoline 0.05 % nasal spray 2 spray intranasal Q12H PRN 01/08/22 03/01/22 Congestion diphenhydramine HCl 25 mg tablet 50 mg PO BEDTIME PRN Insomnia 01/22/22 03/01/22 (Benadryl Allergy) Allergies Allergy/AdvReac Type Severity Reaction Status Date / Time morphine [MORPHINE] Allergy Severe HIVES, Verified 11/19/21 01:59 high temp, nausea tramadol [TRAMADOL] Allergy Severe SWEATING, Verified 11/19/21 01:59 VOMITING, vomiting Sulfa (Sulfonamide Allergy Unknown Verified 12/25/21 00:19 Antibiotics) amoxicillin [From AUGMENTIN] AdvReac Severe CONSTIPATIO Verified 11/19/21 01:59 N clavulanic acid AdvReac Severe CONSTIPATIO Verified 11/19/21 01:59 [From AUGMENTIN] N codeine [CODEINE] AdvReac Severe NAUSEA Verified 11/19/21 01:59 levofloxacin [From LEVAQUIN] AdvReac Severe CONSTIPATIO Verified 11/19/21 01:59 N Sulfa(Sulfonamide Allergy Unknown Unknown Uncoded 10/04/20 22:39 Antibiotics) Review of Systems Review of Systems: Yes Unobtainable due to mental condition [facility] Past Medical History Medical History Acute and chronic respiratory failure with hypoxia Anxiety Asthma Bronchitis Chronic obstructive pulmonary disease with hypoxia Chronic respiratory failure COPD (chronic obstructive pulmonary disease) Diverticulitis Dizziness Emphysema lung Hypertension Otitis media Pulmonary abscess Vertigo Surgical History History of breast surgery History of laparotomy Family History Family History Other No family history of coronary artery disease Social History Social History Household Members: Spouse Housing: Other Housing Other:: room in a motel Do you presently have visiting nurse or other home services: No Alcohol intake: never Patient Tobacco Use Status: Former Tobacco user Substance Use Type: Marijuana Advance Directives: Yes Advance Directives on File: Yes Advance Directives Date on File: 07/09/21 service: No Current occupational status: disabled Physical Exam Vital Signs: Vital Signs: Last Vital Signs Temp 97.8 F 03/01/22 23:05 Pulse 99 03/01/22 23:31 Resp 24 H 03/01/22 23:31 BP 124/51 L 03/01/22 23:31 Pulse Ox 100 03/01/22 23:31 O2 Del Method 03/01/22 23:31 O2 Flow Rate 5 03/01/22 23:31 Oxygen Flow Rate 6 03/01/22 17:41 BMI result Body Mass Index 21.2 Const: Other: Appearance: Alert. Oriented X1. No acute distress. Patient is very confused Eyes: Pupils equal, round and reactive to light. ENT: Pharynx normal. Neck: Normal inspection. Neck supple. No lymph nodes noted. No crepitus CVS: Normal heart rate and rhythm. Pulses normal. Normal S1 and S2 Respiratory: No respiratory distress. Breath sounds normal. No Wheezing. No rales Abdomen: Soft and nontender. No rigidity. No distention. Skin: Skin warm and dry. Normal skin color. Normal skin turgor. Extremities: No lower extremity edema. No Lacerations. No Rash Neuro: Oriented X 3. No motor deficit. No sensory deficit. Moving all extremities. No slurred speech. CN 2 through 12 grossly intact Psych: calm, cooperative, normal affect Course Course Course Narrative: -patient received several DuoNeb treatments in the ambulance. Patient also got Solu-Medrol here. -patient very confused to give any history. -patient's chest x-ray does not show any consolidations, antibiotics are not indicated at this time. -D-dimer is negative, less than 230 21:20, I was informed by the patient's nurse that the patient was having seizure. Patient was given 2 mg of Ativan, the seizure stopped. Patient is getting now 1500 mg of IV Keppra. Patient at this time is postictal. Reviewing patient's medical records, patient has no history of prior seizures. Head CT was taken earlier today, acute abnormalities. -our correctional case manager was able to get some information from the patient. Patient currently lives at the [facility] in in with [place] with her . Patient is usually independent but occasionally needs help from her . Patient needs oxygen 247 at 5 L. patient has no services. Patient states that her would not let [facility] into their residence. -we were able to get in touch with the patient's . Patient's states that the patient has had seizures in the past, secondary to benzodiazepine withdrawal. The informs us that the patient ran out of benzodiazepines 2-3 days ago. Before the patient had a seizure and we were aware this, patient received 1 dose of p.o. Ativan, during the seizure, patient received 2 mg of Ativan. I updated Dr. Mccallum Medications Administered Discontinued Medications Generic Name Dose Route Start Last Admin Trade Name Freq PRN Reason Stop Dose Admin Sodium Chloride 1,000 mls @ 999 mls/hr 03/01/22 18:01 03/01/22 19:46 Ns IVCONT 03/01/22 19:01 Infused .Q1H1M ONE Infusion Levetiracetam 1,500 mg in 100 mls @ 400 mls/hr 03/01/22 21:30 03/01/22 21:45 Keppra IV 03/01/22 21:44 Infused ONCE ONE Infusion Lorazepam 1 mg 03/01/22 19:26 03/01/22 19:54 Lorazepam 1 Mg Tablet PO 03/01/22 19:27 1 mg ONCE ONE Administration Lorazepam 2 mg 03/01/22 21:19 03/01/22 21:05 Lorazepam 2 Mg/Ml Vial IVPUSH 03/01/22 21:20 2 mg ONCE ONE Administration Methylprednisolone Sodium Succinate 125 mg 03/01/22 21:19 03/01/22 21:33 Methylprednisolone Sod Succ 125 Mg/2 Ml Vial IVPUSH 03/01/22 21:20 125 mg ONCE ONE Administration Medical Decision Making Differential Diagnosis Differential Diagnoses: The differential diagnosis associated with the presentation includes (Hypercapnia, encephalopathy, size been withdrawal) Admission/Observation Consideration of admission/observation: Escalation of care including admission/observation considered (Patient had a benzodiazepine withdrawal seizure) Consult Healthcare Provider Management of the patient was discussed with: Hospitalist Lab Data MDM Lab Attestation statement: I reviewed the patient's lab results. 03/01/22 18:13 03/01/22 19:18 Labs: Lab Results 03/01/22 03/01/22 03/01/22 Range/Units 18:13 18:13 18:13 WBC 9.2 (4.8-10.8) X10*3/uL RBC 5.05 (4.20-5.50) X10*6/uL Hgb 13.3 (12.0-16.0) g/dl Hct 41.4 (37.0-47.0) % MCV 82.0 (80.0-98.0) fL MCH 26.3 L (27.0-33.0) pg MCHC 32.1 (31.0-35.0) g/dl RDW 15.3 (11.0-16.0) % Plt Count 345 (160-400) X10*3/uL MPV 9.3 L (9.4-12.3) fL Immature Gran % (Auto) 0.3 (0.0-0.4) % Neut % (Auto) 82.8 H (45-73) % Lymph % (Auto) 10.4 L (20-40) % [place] % (Auto) 6.1 (2-11) % Eos % (Auto) 0.1 (0-4) % Baso % (Auto) 0.3 (0-2) % Lymph # (Auto) 1.0 L (1.2-4.9) X10*3/uL [place] # (Auto) 0.6 (0.1-1.2) X10*3/uL Eos # (Auto) 0.0 (0.0-0.4) X10*3/uL Baso # (Auto) 0.0 (0.0-0.2) X10*3/uL Abs Immat Gran (auto) 0.03 (0.00-0.03) X10*3/uL Absolute Neuts (auto) 7.6 (2.0-8.3) x10*3/uL Absolute Nucleated RBC 0.000 (0.0-0.012) X10*3/uL Nucleated RBC % (auto) 0.0 (0.0-0.2) /100WBC PT 11.2 (10.0-13.1) SEC INR 1.0 (0.9-1.1) D-Dimer High Sensitivty NG/ML VBG pH (7.32-7.43) VBG pCO2 mmHg VBG pO2 mmHg VBG HCO3 (22-26) mmol/L VBG O2 Saturation % VBG Base Excess mmol/L Sodium (135-145) mmol/L Potassium (3.3-5.1) mmol/L Chloride (96-108) mmol/L Carbon Dioxide (22-29) mmol/L Anion Gap (12-20) BUN (9-16) mg/dL Creatinine (0.5-1.4) mg/dL Estim Creat Clear Calc Estimated GFR Random Glucose (60-115) mg/dL Lactic Acid 1.1 (0.5-2.0) mmol/L Calcium (8.4-10.2) mg/dL Magnesium (1.6-2.6) mg/dL Total Bilirubin (0.0-1.0) mg/dL Direct Bilirubin (0.0-0.5) mg/dL AST (5-31) U/L ALT (0-31) U/L Alkaline Phosphatase (39-117) U/L Ammonia (13-55) umol/L Troponin I High Sens (<3.5-17.0) ng/L B-Natriuretic Peptide (<100) pg/mL Total Protein (6.5-8.0) g/dL Albumin (3.5-5.0) g/dL Urine Color Urine Appearance Urine pH (5.0-9.0) Ur Specific [place] (1.005-1.025) Urine Protein (Neg-Trace) mg/dL Urine Glucose (UA) (Negative) mg/dL Urine Ketones (Negative) mg/dL Urine Blood (Negative) Urine Nitrite (Negative) Ur Leukocyte Esterase (Negative) Urine RBC (0-2) /HPF Urine WBC (0-5) /HPF Ur Squamous Epith Cells (0-2) /HPF Urine Bacteria (None Seen) Hyaline Casts (0-2) /LPF Urine Opiates Screen (Not Detect) Urine Fentanyl Screen (Not Detect) Ur Barbiturates Screen (Not Detect) Ur Phencyclidine Scrn (Not Detect) Ur Amphetamines Screen (Not Detect) U Benzodiazepines Scrn (Not Detect) Urine Cocaine Screen (Not Detect) U Marijuana (THC) Screen (Not Detect) Ethyl Alcohol mg/dL COVID-19 (SEAN) (Negative) COVID-19 Clin Com Influenza Type A (TAMIKO) (Negative) Influenza Type B (TAMIKO) (Negative) Influenza A & B Note 03/01/22 03/01/22 03/01/22 Range/Units 18:13 18:13 18:13 WBC (4.8-10.8) X10*3/uL RBC (4.20-5.50) X10*6/uL Hgb (12.0-16.0) g/dl Hct (37.0-47.0) % MCV (80.0-98.0) fL MCH (27.0-33.0) pg MCHC (31.0-35.0) g/dl RDW (11.0-16.0) % Plt Count (160-400) X10*3/uL MPV (9.4-12.3) fL Immature Gran % (Auto) (0.0-0.4) % Neut % (Auto) (45-73) % Lymph % (Auto) (20-40) % [place] % (Auto) (2-11) % Eos % (Auto) (0-4) % Baso % (Auto) (0-2) % Lymph # (Auto) (1.2-4.9) X10*3/uL [place] # (Auto) (0.1-1.2) X10*3/uL Eos # (Auto) (0.0-0.4) X10*3/uL Baso # (Auto) (0.0-0.2) X10*3/uL Abs Immat Gran (auto) (0.00-0.03) X10*3/uL Absolute Neuts (auto) (2.0-8.3) x10*3/uL Absolute Nucleated RBC (0.0-0.012) X10*3/uL Nucleated RBC % (auto) (0.0-0.2) /100WBC PT (10.0-13.1) SEC INR (0.9-1.1) D-Dimer High Sensitivty NG/ML VBG pH (7.32-7.43) VBG pCO2 mmHg VBG pO2 mmHg VBG HCO3 (22-26) mmol/L VBG O2 Saturation % VBG Base Excess mmol/L Sodium (135-145) mmol/L Potassium (3.3-5.1) mmol/L Chloride (96-108) mmol/L Carbon Dioxide (22-29) mmol/L Anion Gap (12-20) BUN (9-16) mg/dL Creatinine (0.5-1.4) mg/dL Estim Creat Clear Calc Estimated GFR Random Glucose (60-115) mg/dL Lactic Acid (0.5-2.0) mmol/L Calcium (8.4-10.2) mg/dL Magnesium (1.6-2.6) mg/dL Total Bilirubin (0.0-1.0) mg/dL Direct Bilirubin (0.0-0.5) mg/dL AST (5-31) U/L ALT (0-31) U/L Alkaline Phosphatase (39-117) U/L Ammonia (13-55) umol/L Troponin I High Sens 6.9 D (<3.5-17.0) ng/L B-Natriuretic Peptide (<100) pg/mL Total Protein (6.5-8.0) g/dL Albumin (3.5-5.0) g/dL Urine Color Urine Appearance Urine pH (5.0-9.0) Ur Specific [place] (1.005-1.025) Urine Protein (Neg-Trace) mg/dL Urine Glucose (UA) (Negative) mg/dL Urine Ketones (Negative) mg/dL Urine Blood (Negative) Urine Nitrite (Negative) Ur Leukocyte Esterase (Negative) Urine RBC (0-2) /HPF Urine WBC (0-5) /HPF Ur Squamous Epith Cells (0-2) /HPF Urine Bacteria (None Seen) Hyaline Casts (0-2) /LPF Urine Opiates Screen (Not Detect) Urine Fentanyl Screen (Not Detect) Ur Barbiturates Screen (Not Detect) Ur Phencyclidine Scrn (Not Detect) Ur Amphetamines Screen (Not Detect) U Benzodiazepines Scrn (Not Detect) Urine Cocaine Screen (Not Detect) U Marijuana (THC) Screen (Not Detect) Ethyl Alcohol mg/dL COVID-19 (SEAN) Negative (Negative) COVID-19 Clin Com See Note Influenza Type A (TAMIKO) Negative (Negative) Influenza Type B (TAMIKO) Negative (Negative) Influenza A & B Note See Note 03/01/22 03/01/22 03/01/22 Range/Units 18:21 18:39 18:39 WBC (4.8-10.8) X10*3/uL RBC (4.20-5.50) X10*6/uL Hgb (12.0-16.0) g/dl Hct (37.0-47.0) % MCV (80.0-98.0) fL MCH (27.0-33.0) pg MCHC (31.0-35.0) g/dl RDW (11.0-16.0) % Plt Count (160-400) X10*3/uL MPV (9.4-12.3) fL Immature Gran % (Auto) (0.0-0.4) % Neut % (Auto) (45-73) % Lymph % (Auto) (20-40) % [place] % (Auto) (2-11) % Eos % (Auto) (0-4) % Baso % (Auto) (0-2) % Lymph # (Auto) (1.2-4.9) X10*3/uL [place] # (Auto) (0.1-1.2) X10*3/uL Eos # (Auto) (0.0-0.4) X10*3/uL Baso # (Auto) (0.0-0.2) X10*3/uL Abs Immat Gran (auto) (0.00-0.03) X10*3/uL Absolute Neuts (auto) (2.0-8.3) x10*3/uL Absolute Nucleated RBC (0.0-0.012) X10*3/uL Nucleated RBC % (auto) (0.0-0.2) /100WBC PT (10.0-13.1) SEC INR (0.9-1.1) D-Dimer High Sensitivty NG/ML VBG pH 7.52 H (7.32-7.43) VBG pCO2 38 mmHg VBG pO2 97 mmHg VBG HCO3 31 H (22-26) mmol/L VBG O2 Saturation 99.0 % VBG Base Excess 8.4 mmol/L Sodium (135-145) mmol/L Potassium (3.3-5.1) mmol/L Chloride (96-108) mmol/L Carbon Dioxide (22-29) mmol/L Anion Gap (12-20) BUN (9-16) mg/dL Creatinine (0.5-1.4) mg/dL Estim Creat Clear Calc Estimated GFR Random Glucose (60-115) mg/dL Lactic Acid (0.5-2.0) mmol/L Calcium (8.4-10.2) mg/dL Magnesium (1.6-2.6) mg/dL Total Bilirubin (0.0-1.0) mg/dL Direct Bilirubin (0.0-0.5) mg/dL AST (5-31) U/L ALT (0-31) U/L Alkaline Phosphatase (39-117) U/L Ammonia (13-55) umol/L Troponin I High Sens (<3.5-17.0) ng/L B-Natriuretic Peptide (<100) pg/mL Total Protein (6.5-8.0) g/dL Albumin (3.5-5.0) g/dL Urine Color Yellow Urine Appearance Clear Urine pH 6.5 (5.0-9.0) Ur Specific [place] 1.020 (1.005-1.025) Urine Protein 300 (3+) H (Neg-Trace) mg/dL Urine Glucose (UA) Negative (Negative) mg/dL Urine Ketones 80 (Negative) mg/dL Urine Blood Trace H (Negative) Urine Nitrite Negative (Negative) Ur Leukocyte Esterase Negative (Negative) Urine RBC 0-2 (0-2) /HPF Urine WBC 0-5 (0-5) /HPF Ur Squamous Epith Cells 0-2 (0-2) /HPF Urine Bacteria None Seen (None Seen) Hyaline Casts 0-2 (0-2) /LPF Urine Opiates Screen Not Detected (Not Detect) Urine Fentanyl Screen Not Detected (Not Detect) Ur Barbiturates Screen Not Detected (Not Detect) Ur Phencyclidine Scrn Not Detected (Not Detect) Ur Amphetamines Screen Not Detected (Not Detect) U Benzodiazepines Scrn Not Detected (Not Detect) Urine Cocaine Screen Not Detected (Not Detect) U Marijuana (THC) Screen POSITIVE H (Not Detect) Ethyl Alcohol mg/dL COVID-19 (SEAN) (Negative) COVID-19 Clin Com Influenza Type A (TAMIKO) (Negative) Influenza Type B (TAMIKO) (Negative) Influenza A & B Note 03/01/22 03/01/22 03/01/22 Range/Units 19:18 19:18 19:18 WBC (4.8-10.8) X10*3/uL RBC (4.20-5.50) X10*6/uL Hgb (12.0-16.0) g/dl Hct (37.0-47.0) % MCV (80.0-98.0) fL MCH (27.0-33.0) pg MCHC (31.0-35.0) g/dl RDW (11.0-16.0) % Plt Count (160-400) X10*3/uL MPV (9.4-12.3) fL Immature Gran % (Auto) (0.0-0.4) % Neut % (Auto) (45-73) % Lymph % (Auto) (20-40) % [place] % (Auto) (2-11) % Eos % (Auto) (0-4) % Baso % (Auto) (0-2) % Lymph # (Auto) (1.2-4.9) X10*3/uL [place] # (Auto) (0.1-1.2) X10*3/uL Eos # (Auto) (0.0-0.4) X10*3/uL Baso # (Auto) (0.0-0.2) X10*3/uL Abs Immat Gran (auto) (0.00-0.03) X10*3/uL Absolute Neuts (auto) (2.0-8.3) x10*3/uL Absolute Nucleated RBC (0.0-0.012) X10*3/uL Nucleated RBC % (auto) (0.0-0.2) /100WBC PT (10.0-13.1) SEC INR (0.9-1.1) D-Dimer High Sensitivty NG/ML VBG pH (7.32-7.43) VBG pCO2 mmHg VBG pO2 mmHg VBG HCO3 (22-26) mmol/L VBG O2 Saturation % VBG Base Excess mmol/L Sodium 138 (135-145) mmol/L Potassium 4.4 (3.3-5.1) mmol/L Chloride 96 (96-108) mmol/L Carbon Dioxide 26 (22-29) mmol/L Anion Gap 20 (12-20) BUN 12 (9-16) mg/dL Creatinine 0.60 (0.5-1.4) mg/dL Estim Creat Clear Calc 93.7 Estimated GFR > 60 Random Glucose 117 H (60-115) mg/dL Lactic Acid (0.5-2.0) mmol/L Calcium 9.4 D (8.4-10.2) mg/dL Magnesium 1.7 (1.6-2.6) mg/dL Total Bilirubin 0.2 (0.0-1.0) mg/dL Direct Bilirubin < 0.2 (0.0-0.5) mg/dL AST 30 (5-31) U/L ALT 12 (0-31) U/L Alkaline Phosphatase 84 (39-117) U/L Ammonia 24 (13-55) umol/L Troponin I High Sens (<3.5-17.0) ng/L B-Natriuretic Peptide 65 (<100) pg/mL Total Protein 7.6 (6.5-8.0) g/dL Albumin 4.2 (3.5-5.0) g/dL Urine Color Urine Appearance Urine pH (5.0-9.0) Ur Specific [place] (1.005-1.025) Urine Protein (Neg-Trace) mg/dL Urine Glucose (UA) (Negative) mg/dL Urine Ketones (Negative) mg/dL Urine Blood (Negative) Urine Nitrite (Negative) Ur Leukocyte Esterase (Negative) Urine RBC (0-2) /HPF Urine WBC (0-5) /HPF Ur Squamous Epith Cells (0-2) /HPF Urine Bacteria (None Seen) Hyaline Casts (0-2) /LPF Urine Opiates Screen (Not Detect) Urine Fentanyl Screen (Not Detect) Ur Barbiturates Screen (Not Detect) Ur Phencyclidine Scrn (Not Detect) Ur Amphetamines Screen (Not Detect) U Benzodiazepines Scrn (Not Detect) Urine Cocaine Screen (Not Detect) U Marijuana (THC) Screen (Not Detect) Ethyl Alcohol mg/dL COVID-19 (SEAN) (Negative) COVID-19 Clin Com Influenza Type A (TAMIKO) (Negative) Influenza Type B (TAMIKO) (Negative) Influenza A & B Note 03/01/22 03/01/22 Range/Units 19:18 21:12 WBC (4.8-10.8) X10*3/uL RBC (4.20-5.50) X10*6/uL Hgb (12.0-16.0) g/dl Hct (37.0-47.0) % MCV (80.0-98.0) fL MCH (27.0-33.0) pg MCHC (31.0-35.0) g/dl RDW (11.0-16.0) % Plt Count (160-400) X10*3/uL MPV (9.4-12.3) fL Immature Gran % (Auto) (0.0-0.4) % Neut % (Auto) (45-73) % Lymph % (Auto) (20-40) % [place] % (Auto) (2-11) % Eos % (Auto) (0-4) % Baso % (Auto) (0-2) % Lymph # (Auto) (1.2-4.9) X10*3/uL [place] # (Auto) (0.1-1.2) X10*3/uL Eos # (Auto) (0.0-0.4) X10*3/uL Baso # (Auto) (0.0-0.2) X10*3/uL Abs Immat Gran (auto) (0.00-0.03) X10*3/uL Absolute Neuts (auto) (2.0-8.3) x10*3/uL Absolute Nucleated RBC (0.0-0.012) X10*3/uL Nucleated RBC % (auto) (0.0-0.2) /100WBC PT (10.0-13.1) SEC INR (0.9-1.1) D-Dimer High Sensitivty 169 NG/ML VBG pH (7.32-7.43) VBG pCO2 mmHg VBG pO2 mmHg VBG HCO3 (22-26) mmol/L VBG O2 Saturation % VBG Base Excess mmol/L Sodium (135-145) mmol/L Potassium (3.3-5.1) mmol/L Chloride (96-108) mmol/L Carbon Dioxide (22-29) mmol/L Anion Gap (12-20) BUN (9-16) mg/dL Creatinine (0.5-1.4) mg/dL Estim Creat Clear Calc Estimated GFR Random Glucose (60-115) mg/dL Lactic Acid (0.5-2.0) mmol/L Calcium (8.4-10.2) mg/dL Magnesium (1.6-2.6) mg/dL Total Bilirubin (0.0-1.0) mg/dL Direct Bilirubin (0.0-0.5) mg/dL AST (5-31) U/L ALT (0-31) U/L Alkaline Phosphatase (39-117) U/L Ammonia (13-55) umol/L Troponin I High Sens (<3.5-17.0) ng/L B-Natriuretic Peptide (<100) pg/mL Total Protein (6.5-8.0) g/dL Albumin (3.5-5.0) g/dL Urine Color Urine Appearance Urine pH (5.0-9.0) Ur Specific [place] (1.005-1.025) Urine Protein (Neg-Trace) mg/dL Urine Glucose (UA) (Negative) mg/dL Urine Ketones (Negative) mg/dL Urine Blood (Negative) Urine Nitrite (Negative) Ur Leukocyte Esterase (Negative) Urine RBC (0-2) /HPF Urine WBC (0-5) /HPF Ur Squamous Epith Cells (0-2) /HPF Urine Bacteria (None Seen) Hyaline Casts (0-2) /LPF Urine Opiates Screen (Not Detect) Urine Fentanyl Screen (Not Detect) Ur Barbiturates Screen (Not Detect) Ur Phencyclidine Scrn (Not Detect) Ur Amphetamines Screen (Not Detect) U Benzodiazepines Scrn (Not Detect) Urine Cocaine Screen (Not Detect) U Marijuana (THC) Screen (Not Detect) Ethyl Alcohol < 10 mg/dL COVID-19 (SEAN) (Negative) COVID-19 Clin Com Influenza Type A (TAMIKO) (Negative) Influenza Type B (TAMIKO) (Negative) Influenza A & B Note Independent Interpretation I performed an independent interpretation of an: EKG (Interpretation: Sinus tachycardia, heart rate 114, nonspecific 1 mm depression in V4 and V5, no reciprocal changes, patient denies chest pain, QTC 435) and CT Scan (Interpretation of head CT: No bleed) Radiology Impression Discussion of test interpretation with radiology: I have reviewed the radiologist's reading. Radiologist Impression: FINDINGS: No intra or extra-axial fluid collection, hemorrhage, or mass. No ventriculomegaly. No midline shift or herniation. Basal cisterns are patent. Trent-white matter differentiation is maintained. No territorial encephalomalacia. ?Proportional prominence of the ventricles and sulcal spaces is consistent with mild volume loss. Patchy periventricular and deep white matter hypoattenuation is consistent with moderate small vessel ischemic changes. No calvarial fracture or soft tissue abnormality. Small mucous retention cyst in the right ethmoid air cell. Paranasal sinuses and mastoid air cells are otherwise normally aerated. Right middle turbinate susana bullosa noted with mucous or mucosal thickening within the aerated turbinate. CT/CT head/brain wo IV con IMPRESSION: No acute intracranial pathology. FINDINGS: The cardiac silhouette is normal. There is mild diffuse bronchial wall thickening and mild chronic interstitial disease. There are no areas of consolidation. There are no pleural effusions or pneumothoraces. The bones and soft tissues are unremarkable for the patient's age. XR/XR chest 1V IMPRESSION: No acute disease. ? Independent Historian Clinical information obtained from an independent historian. History obtained from or confirmed by: Spouse (We were able to reach the patient's over the phone) External Record Review External record reviewed: Inpatient record (I reviewed patient's inpatient record, on discharge on January 2022, patient was alert and oriented x3, which is likely her baseline) Social Determinants Patient?s care significantly limited by Social Determinants of Health including: Inadequate housing (Patient lives in a motel) Critical Care Time Critical Care Time Critical Care Time: Yes Total Critical Care Time: 60 Attestation: I have personally provided critical care time. Time includes review of lab data, radiology results, discussion with consultants, and monitoring for potential decompensation. Intervention performed as documented. Discharge Plan Discharge Clinical Impression: Encephalopathy, Chronic lung disease, Drug withdrawal seizure Patient Disposition: Admitted As Inpatient Prescriptions: No Action albuterol sulfate 2.5 mg /3 mL (0.083 %) solution for nebulization 1 vial inhalation Q6H Rx Instructions: TAKE WITH IPROTROPIUM BROMIDE 0.02% noscidycvt-cxbllkdgzukyx-zbjq 50-325-40 mg tablet 2 tab PO Q12H PRN (Reason: Migraine Headache) Rx Instructions: not to exceed 6 tabs/24 hours ipratropium bromide 0.02 % solution 2.5 ml inhalation Q6H Rx Instructions: TAKE WITH ALBUTEROL 0.083% diltiazem HCl 360 mg capsule,extended release 24 hr 1 cap PO DAILY lorazepam 2 mg tablet 1 tab PO Q6H PRN (Reason: anxiety) Atrovent HFA 17 mcg/actuation HFA aerosol inhaler 2 puff inhalation QID PRN (Reason: Shortness Of Breath Or Wheezing) ibuprofen [Advil] 200 mg Tablet 400 mg PO Q8H PRN (Reason: Headache) oxymetazoline 0.05 % [place],Non-Aerosol 2 spray INTRANASAL Q12H PRN (Reason: Congestion) diphenhydramine HCl [Benadryl Allergy] 25 mg Tablet 50 mg PO BEDTIME PRN (Reason: Insomnia)
--- NOTE | 2022-03-01 18:01 | ECG_ITS ---
Test Reason : dyspnea Blood Pressure : / mmHG Vent. Rate : 114 BPM Atrial Rate : 114 BPM P-R Int : 130 ms QRS Dur : 078 ms QT Int : 316 ms P-R-T Axes : 072 020 057 degrees QTc Int : 435 ms Artifact in tracing Sinus tachycardia Nonspecific ST abnormality Abnormal ECG When compared with ECG of 22-JAN-2022 02:29, Nonspecific ST and T wave abnormality more prominent Referred By: Becky Caldera Electronically Signed By:GABI BALBUENA
[2022-03-01 18:21] LABS: MANUAL DIFF FLAG NO
[2022-03-01] MEDS: 0.9 % Sodium Chloride 1,000 ML 999 ML IVCONT (18:22)
[2022-03-01 18:28] LABS: Venous Blood Gas Refer to POC result
[2022-03-01 18:28] LABS: VBG Base Excess 8.4 mmol/L; VBG HCO3 31 mmol/L (22-26); VBG pCO2 38 mmHg; VBG pH 7.52 (7.32-7.43); VBG pO2 97 mmHg
[2022-03-01 18:28] LABS: Basophils Percent Auto 0.3 % (0-2); Eosinophils Percent Auto 0.1 % (0-4); Hematocrit 41.4 % (37.0-47.0); Hemoglobin 13.3 g/dl (12.0-16.0); Imm Gran Abs Auto 0.03 X10*3/uL (0.00-0.03); Imm Gran Pct Auto 0.3 % (0.0-0.4); Lymphocytes Percent Auto 10.4 % (20-40); Mean Corpuscular HGB Conc 32.1 g/dl (31.0-35.0); Mean Corpuscular Hemoglobin 26.3 pg (27.0-33.0); Mean Platelet Volume 9.3 fL (9.4-12.3); Monocytes Absolute Auto 0.6 X10*3/uL (0.1-1.2); Monocytes Percent Auto 6.1 % (2-11); Neutrophils Absolute Auto 7.6 x10*3/uL (2.0-8.3); Neutrophils Percent Auto 82.8 % (45-73); Platelet Count 345 X10*3/uL (160-400); Red Blood Count 5.05 X10*6/uL (4.20-5.50); Red Cell Distribution Width 15.3 % (11.0-16.0); White Blood Count 9.2 X10*3/uL (4.8-10.8)
[2022-03-01 18:29] LABS: Prothrombin Time 11.2 SEC (10.0-13.1)
[2022-03-01 18:42] LABS: COVID-19 Test Negative (Negative); IDNOW Serial# 16C4AD1C
[2022-03-01 18:43] LABS: IDNOW Serial# BCCEAD1C; Influenza A Negative (Negative); Influenza B2 Negative (Negative); Lactic Acid 1.1 mmol/L (0.5-2.0)
[2022-03-01 18:51] LABS: Appearance Urine Clear; Color Urine Yellow; Glucose Urine UA Negative (Negative); Leukocyte Esterase Urine Negative (Negative); Nitrite Urine Negative (Negative); PH 6.5 (5.0-9.0); UMIC TRIGGER UACC YES; Urine Blood Trace (Negative); Urine Ketones 80 mg/dL (Negative); Urine Protein 300 (3+) mg/dL (Neg-Trace)
[2022-03-01 18:53] LABS: Troponin-I High Sensitivity 6.9 ng/L (<3.5-17.0)
[2022-03-01 18:56] LABS: Bacteria Urine None Seen (None Seen); Hyaline Casts Urine 0-2 /LPF (0-2); RBC Urine 0-2 /HPF (0-2); Squamous Epithelial Cell Urine 0-2 /HPF (0-2); WBC Urine 0-5 /HPF (0-5)
[2022-03-01 19:00] LABS: Amphetamine Screen Urine Not Detected (Not Detect); Barbiturates, Urine Not Detected (Not Detect); Benzodiazepines Screen Urine Not Detected (Not Detect); Cannabinoid Screen Urine POSITIVE (Not Detect); Cocaine Screen Urine Not Detected (Not Detect); Fentanyl, urine Not Detected (Not Detect); Opiate Screen Urine Not Detected (Not Detect); Phencyclidine Screen Urine Not Detected (Not Detect)
--- NOTE | 2022-03-01 19:23 | PC.NURSE ---
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 patient seems disoriented, continuously telling me to [facility] and stop talking because theres people around unknown if patient has a psych history. patient requesting ativan. will ask MD. will continue to monitor closely
[2022-03-01 19:35] LABS: Ammonia 24 umol/L (13-55)
[2022-03-01 19:41] LABS: Ethanol < 10 mg/dL
[2022-03-01 19:47] LABS: Alanine Aminotransferase 12 U/L (0-31); Albumin Level 4.2 g/dL (3.5-5.0); Alkaline Phosphatase 84 U/L (39-117); Anion Gap 20 (12-20); Aspartate Amino Transferase 30 U/L (5-31); Bilirubin Direct < 0.2 mg/dL (0.0-0.5); Bilirubin Total 0.2 mg/dL (0.0-1.0); Blood Urea Nitrogen 12 mg/dL (9-16); Calcium 9.4 mg/dL (8.4-10.2); Carbon Dioxide 26 mmol/L (22-29); Chloride 96 mmol/L (96-108); Creatinine Clr Calc Pharmacy 93.7; Estimated Glomerular Filt Rate > 60; Glucose Random 117 mg/dL (60-115); Magnesium 1.7 mg/dL (1.6-2.6); Potassium 4.4 mmol/L (3.3-5.1); Sodium 138 mmol/L (135-145); Total Protein 7.6 g/dL (6.5-8.0)
[2022-03-01] MEDS: LORazepam 1 MG TABLET PO (19:54)
[2022-03-01 20:07] LABS: B Type Natriuretic Peptide 65 pg/mL (<100)
[2022-03-01] MEDS: LORazepam 2 MG/ML VIAL IVPUSH (21:05)
--- NOTE | 2022-03-01 21:10 | PC.NURSE ---
Ativan 2mg IV removed from Pyxis and administered by Beth Rao RN. Ordered by Dr. Caldera for seizure at bedside. Primary RN Yanet also present.
--- NOTE | 2022-03-01 21:17 | PC.NURSE ---
pct went in to draw patient d dimer and patient began having a seizure - eyes rolling to back of head, foaming at mouth, decreased oxygenation, patient turning blue - MD samano and this RN at bedside. ativan administered, patient placed on a non rebreather. no documented history of seizures. will call to find out more info. keppra to be administered, will continue to monitor closely
[2022-03-01] MEDS: levETIRAcetam in NaCl (iso-os) 1,500 MG/100 ML PIGGYBACK 400 MG IV (21:23)
[2022-03-01 21:25] LABS: D Dimer High Sensitivity 169 NG/ML
[2022-03-01] MEDS: methylPREDNISolone Sod Succ 125 MG/2 ML VIAL IVPUSH (21:33)
--- NOTE | 2022-03-01 22:38 | PC.NURSE ---
patient's tells me that she takes 2mg ativan po 2x/day. patient took more than scheduled a couple days ago for feeling increased stress and anxiety, and therefore ran out of her ativan prescription. has not taken in 2 days per . tells me patient does have withdrawal seizures when this occurs. MD aware. patient to be admitted to the hospital for further observation. will continue to monitor.
--- NOTE | 2022-03-01 23:28 | P.HPHOSP_ITS ---
History of Present Illness Date of Service: 03/01/22 Chief Complaint: Shortness of breath, 66-year-old female with chronic hypoxic respiratory failure on baseline 5 L of oxygen, asthma, hypertension, vertigo presents to the hospital with complaints of shortness of breath and increased oxygen requirement. On my interview patient is completely obtunded there for a number able to get history from her, history is obtained mostly from ED physician. It appears that patient reported shortness of breath, with no increased cough or sputum production. Patient was found to be 90% on 6 L of oxygen. It appears the patient lives in a hotel, and herself have refused VNA in the past. While in the ED patient a ppear to be confused, and while waiting further workup, she had 1 witness seizure episode. After discussing this case with her it appears the patient was on benzodiazepines p.r.n. chronically, she was stressed lately, so she took more than her prescribed dose and she ran out of Ativan about 2-3 days ago and has been without it for that long. Her reports that when she runs out of her Ativan she usually has seizures. On arrival to the ED patient hemodynamically stable with an elevated heart rate that has now improved, respiratory rate of 28, blood pressure of 191/109, sattin g 91% on 6 L Labs are found to be significant for WBC count of 9.2, venous pH of 7.52, CO2 of 38, lactic acid normal, troponin normal, BNP normal, urine negative for infection, UDS positive for marijuana, viral serology negative, chest x-ray negative, has CT negative Patient given IV Ativan as well as 1500 mg of Keppra and will be admitted for observation Review of Systems Review of Systems: Yes all other systems are reviewed and are negative [facility] Medical History Acute and chronic respiratory failure with hypoxia Anxiety Asthma Bronchitis Chronic obstructive pulmonary disease with hypoxia Chronic respiratory failure COPD (chronic obstructive pulmonary disease) Diverticulitis Dizziness Emphysema lung Hypertension Otitis media Pulmonary abscess Vertigo Family History Other No family history of coronary artery disease Surgical History History of breast surgery History of laparotomy Social History Household Members: Spouse Housing: Other Housing Other:: room in a motel Do you presently have visiting nurse or other home services: No Alcohol intake: never Patient Tobacco Use Status: Former Tobacco user Tobacco use type: Cigarette Substance Use Type: Marijuana Currently Displaying Signs/Symptoms of Drug Intoxication Withdrawal: No Advance Directives: Yes Advance Directives on File: Yes Advance Directives Date on File: 07/09/21 service: No Current occupational status: disabled Meds Allergies Allergy/AdvReac Type Severity Reaction Status Date / Time morphine [MORPHINE] Allergy Severe HIVES, Verified 11/19/21 01:59 high temp, nausea tramadol [TRAMADOL] Allergy Severe SWEATING, Verified 11/19/21 01:59 VOMITING, vomiting Sulfa (Sulfonamide Allergy Unknown Verified 12/25/21 00:19 Antibiotics) amoxicillin [From AUGMENTIN] AdvReac Severe CONSTIPATIO Verified 11/19/21 01:59 N clavulanic acid AdvReac Severe CONSTIPATIO Verified 11/19/21 01:59 [From AUGMENTIN] N codeine [CODEINE] AdvReac Severe NAUSEA Verified 11/19/21 01:59 levofloxacin [From LEVAQUIN] AdvReac Severe CONSTIPATIO Verified 11/19/21 01:59 N Sulfa(Sulfonamide Allergy Unknown Unknown Uncoded 10/04/20 22:39 Antibiotics) Active Medications: Current Medications Acetaminophen (Acetaminophen 325 Mg Tablet) 650 mg PO Q6H PRN PRN Reason: Pain, Mild (Pain Scale 1-3) Enoxaparin Sodium (Enoxaparin Sodium 40 Mg/0.4 Ml Syringe) 40 mg SUBCUT Q24H NARCISA Ondansetron HCl (Ondansetron Hcl 4 Mg/2 Ml Vial) 4 mg IVPUSH Q8H PRN PRN Reason: Nausea and Vomiting Sodium Chloride (0.9 % Sodium Chloride Flush 3 Ml Syringe) [facility] Medication Instructions Recorded Confirmed Last Taken Type albuterol sulfate 2.5 mg/3 mL 1 vial inhalation Q6H 10/04/20 03/01/22 01/21/22 History (0.083 %) solution for nebulization [id number] 2 tab PO Q12H PRN Migraine Headache 0803/01/22 01/21/22 History 50 mg-325 mg-40 mg tablet diltiazem HCl 360 mg capsule,24 1 cap PO DAILY 07/08/21 03/01/22 01/21/22 History hr,extended release lorazepam 2 mg tablet 1 tab PO Q6H PRN anxiety 07/08/21 03/01/22 01/21/22 History ipratropium bromide 0.02 % 2.5 ml inhalation Q6H 09/25/21 03/01/22 01/21/22 History solution for inhalation ibuprofen 200 mg tablet (Advil) 400 mg PO Q8H PRN Headache 01/08/22 03/01/22 01/21/22 History ipratropium bromide 17 2 puff inhalation QID PRN 01/08/22 03/01/22 01/21/22 History mcg/actuation HFA aerosol inhaler Shortness Of Breath Or Wheezing (Atrovent HFA) oxymetazoline 0.05 % nasal spray 2 spray intranasal Q12H PRN 01/08/22 03/01/22 01/21/22 History Congestion diphenhydramine HCl 25 mg tablet 50 mg PO BEDTIME PRN Insomnia 01/22/22 03/01/22 01/21/22 History (Benadryl Allergy) Physical Exam Vital Signs and Narrative: Vital Signs: Last Vital Signs Temp 97.8 F 03/01/22 23:05 Pulse 101 H 03/01/22 23:05 Resp 23 H 03/01/22 23:05 BP 124/51 L 03/01/22 23:05 Pulse Ox 100 03/01/22 23:05 O2 Del Method 03/01/22 23:05 O2 Flow Rate 5 03/01/22 23:05 Oxygen Flow Rate 6 03/01/22 17:41 BMI result Body Mass Index 21.2 Const: Other: Patient attended, grimaces to sternal rub General: cooperative and no acute distress Eyes: General: appearance normal, both eyes and all related structures Resp: Effort & Inspection: normal respiratory effort Cardio: Rate: regular rate Rhythm: regular rhythm GI: Palpation (GI): Soft to palpation Auscultation: normal bowel sounds Skin: General skin exam: no rashes or lesions noted Extrem: General: Yes normal to inspection and Yes no pedal edema Results Labs 03/01/22 18:13 03/01/22 19:18 Labs: Laboratory Results - last 24 hr 03/01/22 03/01/22 03/01/22 18:13 18:13 18:13 MCV 82.0 MCH 26.3 L MCHC 32.1 RDW 15.3 Plt Count 345 MPV 9.3 L Immature Gran % (Auto) 0.3 Neut % (Auto) 82.8 H Lymph % (Auto) 10.4 L [place] % (Auto) 6.1 Eos % (Auto) 0.1 Baso % (Auto) 0.3 Lymph # (Auto) 1.0 L [place] # (Auto) 0.6 Eos # (Auto) 0.0 Baso # (Auto) 0.0 Abs Immat Gran (auto) 0.03 Absolute Neuts (auto) 7.6 Absolute Nucleated RBC 0.000 Nucleated RBC % (auto) 0.0 PT 11.2 INR 1.0 D-Dimer High Sensitivty VBG pH VBG pCO2 VBG pO2 VBG HCO3 VBG O2 Saturation VBG Base Excess Anion Gap Estim Creat Clear Calc Estimated GFR Random Glucose Lactic Acid 1.1 Calcium Magnesium Total Bilirubin Direct Bilirubin AST ALT Alkaline Phosphatase Ammonia Troponin I High Sens B-Natriuretic Peptide Total Protein Albumin Urine Color Urine Appearance Urine pH Ur Specific [place] Urine Protein Urine Glucose (UA) Urine Ketones Urine Blood Urine Nitrite Ur Leukocyte Esterase Urine RBC Urine WBC Ur Squamous Epith Cells Urine Bacteria Hyaline Casts Urine Opiates Screen Urine Fentanyl Screen Ur Barbiturates Screen Ur Phencyclidine Scrn Ur Amphetamines Screen U Benzodiazepines Scrn Urine Cocaine Screen U Marijuana (THC) Screen Ethyl Alcohol COVID-19 (SEAN) COVID-19 Clin Com Influenza Type A (TAMIKO) Influenza Type B (TAMIKO) Influenza A & B Note 03/01/22 03/01/22 03/01/22 18:13 18:13 18:13 MCV MCH MCHC RDW Plt Count MPV Immature Gran % (Auto) Neut % (Auto) Lymph % (Auto) [place] % (Auto) Eos % (Auto) Baso % (Auto) Lymph # (Auto) [place] # (Auto) Eos # (Auto) Baso # (Auto) Abs Immat Gran (auto) Absolute Neuts (auto) Absolute Nucleated RBC Nucleated RBC % (auto) PT INR D-Dimer High Sensitivty VBG pH VBG pCO2 VBG pO2 VBG HCO3 VBG O2 Saturation VBG Base Excess Anion Gap Estim Creat Clear Calc Estimated GFR Random Glucose Lactic Acid Calcium Magnesium Total Bilirubin Direct Bilirubin AST ALT Alkaline Phosphatase Ammonia Troponin I High Sens 6.9 D B-Natriuretic Peptide Total Protein Albumin Urine Color Urine Appearance Urine pH Ur Specific [place] Urine Protein Urine Glucose (UA) Urine Ketones Urine Blood Urine Nitrite Ur Leukocyte Esterase Urine RBC Urine WBC Ur Squamous Epith Cells Urine Bacteria Hyaline Casts Urine Opiates Screen Urine Fentanyl Screen Ur Barbiturates Screen Ur Phencyclidine Scrn Ur Amphetamines Screen U Benzodiazepines Scrn Urine Cocaine Screen U Marijuana (THC) Screen Ethyl Alcohol COVID-19 (SEAN) Negative COVID-19 Clin Com See Note Influenza Type A (TAMIKO) Negative Influenza Type B (TAMIKO) Negative Influenza A & B Note See Note 03/01/22 03/01/22 03/01/22 18:21 18:39 18:39 MCV MCH MCHC RDW Plt Count MPV Immature Gran % (Auto) Neut % (Auto) Lymph % (Auto) [place] % (Auto) Eos % (Auto) Baso % (Auto) Lymph # (Auto) [place] # (Auto) Eos # (Auto) Baso # (Auto) Abs Immat Gran (auto) Absolute Neuts (auto) Absolute Nucleated RBC Nucleated RBC % (auto) PT INR D-Dimer High Sensitivty VBG pH 7.52 H VBG pCO2 38 VBG pO2 97 VBG HCO3 31 H VBG O2 Saturation 99.0 VBG Base Excess 8.4 Anion Gap Estim Creat Clear Calc Estimated GFR Random Glucose Lactic Acid Calcium Magnesium Total Bilirubin Direct Bilirubin AST ALT Alkaline Phosphatase Ammonia Troponin I High Sens B-Natriuretic Peptide Total Protein Albumin Urine Color Yellow Urine Appearance Clear Urine pH 6.5 Ur Specific [place] 1.020 Urine Protein 300 (3+) H Urine Glucose (UA) Negative Urine Ketones 80 Urine Blood Trace H Urine Nitrite Negative Ur Leukocyte Esterase Negative Urine RBC 0-2 Urine WBC 0-5 Ur Squamous Epith Cells 0-2 Urine Bacteria None Seen Hyaline Casts 0-2 Urine Opiates Screen Not Detected Urine Fentanyl Screen Not Detected Ur Barbiturates Screen Not Detected Ur Phencyclidine Scrn Not Detected Ur Amphetamines Screen Not Detected U Benzodiazepines Scrn Not Detected Urine Cocaine Screen Not Detected U Marijuana (THC) Screen POSITIVE H Ethyl Alcohol COVID-19 (SEAN) COVID-19 Clin Com Influenza Type A (TAMIKO) Influenza Type B (TAMIKO) Influenza A & B Note 03/01/22 03/01/22 03/01/22 19:18 19:18 19:18 MCV MCH MCHC RDW Plt Count MPV Immature Gran % (Auto) Neut % (Auto) Lymph % (Auto) [place] % (Auto) Eos % (Auto) Baso % (Auto) Lymph # (Auto) [place] # (Auto) Eos # (Auto) Baso # (Auto) Abs Immat Gran (auto) Absolute Neuts (auto) Absolute Nucleated RBC Nucleated RBC % (auto) PT INR D-Dimer High Sensitivty VBG pH VBG pCO2 VBG pO2 VBG HCO3 VBG O2 Saturation VBG Base Excess Anion Gap 20 Estim Creat Clear Calc 93.7 Estimated GFR > 60 Random Glucose 117 H Lactic Acid Calcium 9.4 D Magnesium 1.7 Total Bilirubin 0.2 Direct Bilirubin < 0.2 AST 30 ALT 12 Alkaline Phosphatase 84 Ammonia 24 Troponin I High Sens B-Natriuretic Peptide 65 Total Protein 7.6 Albumin 4.2 Urine Color Urine Appearance Urine pH Ur Specific [place] Urine Protein Urine Glucose (UA) Urine Ketones Urine Blood Urine Nitrite Ur Leukocyte Esterase Urine RBC Urine WBC Ur Squamous Epith Cells Urine Bacteria Hyaline Casts Urine Opiates Screen Urine Fentanyl Screen Ur Barbiturates Screen Ur Phencyclidine Scrn Ur Amphetamines Screen U Benzodiazepines Scrn Urine Cocaine Screen U Marijuana (THC) Screen Ethyl Alcohol COVID-19 (SEAN) COVID-19 Clin Com Influenza Type A (TAMIKO) Influenza Type B (TAMIKO) Influenza A & B Note 03/01/22 03/01/22 19:18 21:12 MCV MCH MCHC RDW Plt Count MPV Immature Gran % (Auto) Neut % (Auto) Lymph % (Auto) [place] % (Auto) Eos % (Auto) Baso % (Auto) Lymph # (Auto) [place] # (Auto) Eos # (Auto) Baso # (Auto) Abs Immat Gran (auto) Absolute Neuts (auto) Absolute Nucleated RBC Nucleated RBC % (auto) PT INR D-Dimer High Sensitivty 169 VBG pH VBG pCO2 VBG pO2 VBG HCO3 VBG O2 Saturation VBG Base Excess Anion Gap Estim Creat Clear Calc Estimated GFR Random Glucose Lactic Acid Calcium Magnesium Total Bilirubin Direct Bilirubin AST ALT Alkaline Phosphatase Ammonia Troponin I High Sens B-Natriuretic Peptide Total Protein Albumin Urine Color Urine Appearance Urine pH Ur Specific [place] Urine Protein Urine Glucose (UA) Urine Ketones Urine Blood Urine Nitrite Ur Leukocyte Esterase Urine RBC Urine WBC Ur Squamous Epith Cells Urine Bacteria Hyaline Casts Urine Opiates Screen Urine Fentanyl Screen Ur Barbiturates Screen Ur Phencyclidine Scrn Ur Amphetamines Screen U Benzodiazepines Scrn Urine Cocaine Screen U Marijuana (THC) Screen Ethyl Alcohol < 10 COVID-19 (SEAN) COVID-19 Clin Com Influenza Type A (TAMIKO) Influenza Type B (TAMIKO) Influenza A & B Note Imaging Radiologist's Impressions: Impressions Chest X-Ray 03/01/22 18:32 IMPRESSION: No acute disease. Head CT 03/01/22 20:38 IMPRESSION: No acute intracranial pathology. Assessment and Plan (1) Encephalopathy: Status: Acute (2) Drug withdrawal seizure: Status: Acute Plan 66-year-old female with past medical history of COPD as well as hypertension presents to the hospital with complaints of shortness of breath head witnessed seizure while in the ED after being withheld her Ativan for 2-3 days. # encephalopathy - acute secondary to Ativan withdrawal - patient is also currently postictal as well as received Ativan therefore all metabolic encephalopathy - will resume her home Ativan when she is more awake - monitor mental status # drug withdrawal seizure - secondary to withdrawal from benzos - resume her home Ativan dose once she is more awake - I will hold off on treating with any more Keppra # COPD - unable to assess if patient in exacerbation - will have to reassess when she is more awake - at this time will continue home breathing treatment # hypertension - elevated - resume home medications DVT prophylaxis: Lovenox Time Spent With Patient Time: Total time managing care of this patient today ____ minutes. Quality Stroke Does the patient have a stroke diagnosis?: No VTE Prior VTE?: No VTE Risk Level:: Medical - moderate - high VTE Device Contraindication: Treatment Not Indicated VTE Drug Contraindication: N/A - Med Ordered
--- NOTE | 2022-03-02 00:38 | PC.NURSE ---
patient sleeping. no apparent distress. report called to [facility] professor
[2022-03-02] MEDS: Enoxaparin Sodium 40 MG/0.4 ML SYRINGE SUBCUT ×2 (01:03→22:37)
[2022-03-02] MEDS: 0.9 % Sodium Chloride Flush 3 ML SYRINGE IVFLUSH ×4 (01:04→20:05)
[2022-03-02 01:26] VITALS: BMI 20.2
[2022-03-02 03:38] VITALS: BP 140/67; PULSE 116; RESP 18; TEMP 36.4; O2SAT 99
[2022-03-02 06:54] LABS: Basophils Percent Auto 0.1 % (0-2); Hematocrit 38.9 % (37.0-47.0); Hemoglobin 12.2 g/dl (12.0-16.0); Imm Gran Abs Auto 0.04 X10*3/uL (0.00-0.03); Imm Gran Pct Auto 0.5 % (0.0-0.4); Lymphocytes Absolute Auto 0.4 X10*3/uL (1.2-4.9); Lymphocytes Percent Auto 5.2 % (20-40); MANUAL DIFF FLAG SCAN; Mean Corpuscular HGB Conc 31.4 g/dl (31.0-35.0); Mean Corpuscular Hemoglobin 26.4 pg (27.0-33.0); Mean Corpuscular Volume 84.2 fL (80.0-98.0); Mean Platelet Volume 10.7 fL (9.4-12.3); Monocytes Absolute Auto 0.2 X10*3/uL (0.1-1.2); Monocytes Percent Auto 1.8 % (2-11); Neutrophils Absolute Auto 7.6 x10*3/uL (2.0-8.3); Neutrophils Percent Auto 92.4 % (45-73); Platelet Count 326 X10*3/uL (160-400); Red Blood Count 4.62 X10*6/uL (4.20-5.50); Red Cell Distribution Width 15.6 % (11.0-16.0); SCAN SMEAR FLAG 1; White Blood Count 8.2 X10*3/uL (4.8-10.8)
[2022-03-02 07:05] LABS: Anion Gap 18 (12-20); Blood Urea Nitrogen 15 mg/dL (9-16); Calcium 9.8 mg/dL (8.4-10.2); Carbon Dioxide 28 mmol/L (22-29); Chloride 98 mmol/L (96-108); Creatinine Clr Calc Pharmacy 75.3; Estimated Glomerular Filt Rate > 60; Glucose Random 117 mg/dL (60-115); Potassium 4.3 mmol/L (3.3-5.1); Sodium 140 mmol/L (135-145)
[2022-03-02] MEDS: LORazepam 1 MG TABLET 2 MG PO ×3 (07:32→20:24)
[2022-03-02 07:38] VITALS: BP 141/66; PULSE 118; RESP 20; TEMP 37; O2SAT 95
[2022-03-02] MEDS: dilTIAZem HCL CD 180 MG CAP.ER.24H 360 MG PO (07:40)
--- NOTE | 2022-03-02 07:45 | PHA.MEDREC ---
Pharmacy Consult ? Medication Reconciliation Pharmacy has reviewed the medication reconciliation completed by Yanet. Wixela was not included on list. Had RN Lizy confirm with patient what inhalers she takes. Patient improperly use maitenance inhaler as PRN. Patient uses Atrovent with general SOB and then Wixela for severe SOB instead of daily use. Rosa Powell, PharmD
[2022-03-02 08:27] LABS: SLIDE REVIEW VERIFIED
[2022-03-02 10:07] VITALS: PULSE 110; RESP 20; O2SAT 98
[2022-03-02] MEDS: Ipratropium Bromide 0.5 MG/2.5 ML SOLUTION INHALE ×2 (10:07→20:43)
[2022-03-02] MEDS: Albuterol Sulfate (0.083%) 2.5 MG/3 ML VIAL.NEB INHALE ×2 (10:07→20:43)
--- NOTE | 2022-03-02 11:33 | MHC.CM.PN ---
PATIENT ASLEEP AND DOES NOT RESPOND TO 2 ATTEMPTS TO CONVERSE. PER REVIEW OF PREVIOUS VISIT, PATIENT RELIES ON 5 L O2 VIA CANNULA. HCP ON FILE AND VERIFIED. IMM LEFT ON ROOM TABLE WITH CONTACT CARD. IMM 03/02 COPY IN CHART
--- NOTE | 2022-03-02 13:08 | MHC.CM.PN ---
PER MD ROUNDS, PLAN IS HOME MONDAY
--- NOTE | 2022-03-02 14:03 | HO.PM.IMPN ---
Subjective Subjective Date of Service: 03/03/22 Interval History: Feeling better less anxious after receiving Ativan, is on Ativan for last several years, patient ran out of her Ativan few days ago and had I episode of seizure in the ED, patient is complaining of shortness of breath since did not receive her updraft at baseline use updraft treatment 4 times a day, complaining of dry cough, denies fever, no chills, complaining of right arm discomfort that started acutely without fall or injury. Review of Systems Review of Systems: Yes all other systems are reviewed and are negative Physical Exam Vital Signs: Vital Signs: Last Vital Signs Temp 98.6 F 03/02/22 07:38 Pulse 110 H 03/02/22 10:07 Resp 20 03/02/22 10:07 BP 141/66 H 03/02/22 07:38 Pulse Ox 95 03/02/22 07:38 O2 Del Method 03/02/22 07:38 O2 Flow Rate 5 03/02/22 07:38 Oxygen Flow Rate 6 03/01/22 17:41 BMI result Body Mass Index 20.2 Const: Other: General sitting comfortably in no acute distress, talking in full sentences. Neck is supple no JVD. CVS regular rate rhythm, Respiratory lungs diminished, no respiratory distress, no wheeze, no rhonchi. Gastrointestinal abdomen soft, nontender, bowel sounds audible, no guarding , no rigidity. Extremities no edema. Right upper arm with no warmth, no redness, no bruising, at times patient has no pain with deep palpation and on repeat exam patient jumps with pain. Right arm > than left no pitting edema. Neuro nonfocal , speech clear. Skin no rash Psych anxious Objective Data Active Medications Acetaminophen (Acetaminophen 325 Mg Tablet) 650 mg PO Q6H PRN PRN Reason: Pain, Mild (Pain Scale 1-3) Acetaminophen/Butalbital/Caffeine (Butalb/Acetamin/Caff 50/325/40 Tablet) 2 tab PO Q12H PRN PRN Reason: Migraine Headache Albuterol Sulfate (Albuterol Sulfate (0.083%) 2.5 Mg/3 Ml Vial.Neb) 2.5 mg INHALE RQ6H [facility] Last Admin: 03/02/22 10:07 Dose: 2.5 mg Documented By: FLORENCIO Diltiazem HCl (Diltiazem Hcl Cd 180 Mg Cap.Er.24h) 360 mg PO DAILY [facility]; Protocol Last Admin: 03/02/22 07:40 Dose: 360 mg Documented By: MARQUISE Diphenhydramine HCl (Diphenhydramine Hcl 25 Mg Capsule) 50 mg PO BEDTIME PRN PRN Reason: Insomnia Enoxaparin Sodium (Enoxaparin Sodium 40 Mg/0.4 Ml Syringe) 40 mg SUBCUT Q24H [facility] Last Admin: 03/02/22 01:03 Dose: 40 mg Documented By: ANN-MARILYN Fluticasone/Vilanterol (Fluticasone/Vilanterol 100/25 Blst.W.Dev) 1 puff INHALE RDAILY PRN PRN Reason: severe sob Ibuprofen (Ibuprofen 400 Mg Tablet) 400 mg PO Q8H PRN PRN Reason: Headache Ipratropium [place] (Ipratropium [place] 1 Puff/17 Mcg Inhaler) 2 puff INHALE QID PRN PRN Reason: Shortness Of Breath Or Wheezing Ipratropium [place] (Ipratropium [place] 0.5 Mg/2.5 Ml Solution) 0.5 mg INHALE RQ6H [facility] Last Admin: 03/02/22 10:07 Dose: 0.5 mg Documented By: FLORENCIO Lorazepam (Lorazepam 1 Mg Tablet) 2 mg PO Q6H PRN PRN Reason: anxiety Last Admin: 03/02/22 07:32 Dose: 2 mg Documented By: MARQUISE Ondansetron HCl (Ondansetron Hcl 4 Mg/2 Ml Vial) 4 mg IVPUSH Q8H PRN PRN Reason: Nausea and Vomiting Oxymetazoline HCl (Oxymetazoline Hcl 0.05 % Nasal 15 Ml [place]) 2 spray NOSTRIL-B Q12H PRN PRN Reason: Congestion Sodium Chloride (0.9 % Sodium Chloride Flush 3 Ml Syringe) 3 ml IVFLUSH QSHIFT [facility] Last Admin: 03/02/22 07:34 Dose: 3 ml Documented By: MARQUISE Labs 03/02/22 05:59 03/02/22 05:59 Labs: Laboratory Results - last 24 hr 03/01/22 03/01/22 03/01/22 18:13 18:13 18:13 MCV 82.0 MCH 26.3 L MCHC 32.1 RDW 15.3 Plt Count 345 MPV 9.3 L Immature Gran % (Auto) 0.3 Neut % (Auto) 82.8 H Lymph % (Auto) 10.4 L [place] % (Auto) 6.1 Eos % (Auto) 0.1 Baso % (Auto) 0.3 Lymph # (Auto) 1.0 L [place] # (Auto) 0.6 Eos # (Auto) 0.0 Baso # (Auto) 0.0 Abs Immat Gran (auto) 0.03 Absolute Neuts (auto) 7.6 Absolute Nucleated RBC 0.000 Nucleated RBC % (auto) 0.0 Smear Tech's Comments PT 11.2 INR 1.0 D-Dimer High Sensitivty VBG pH VBG pCO2 VBG pO2 VBG HCO3 VBG O2 Saturation VBG Base Excess Anion Gap Estim Creat Clear Calc Estimated GFR Random Glucose Lactic Acid 1.1 Calcium Magnesium Total Bilirubin Direct Bilirubin AST ALT Alkaline Phosphatase Ammonia Troponin I High Sens B-Natriuretic Peptide Total Protein Albumin Urine Color Urine Appearance Urine pH Ur Specific [place] Urine Protein Urine Glucose (UA) Urine Ketones Urine Blood Urine Nitrite Ur Leukocyte Esterase Urine RBC Urine WBC Ur Squamous Epith Cells Urine Bacteria Hyaline Casts Urine Opiates Screen Urine Fentanyl Screen Ur Barbiturates Screen Ur Phencyclidine Scrn Ur Amphetamines Screen U Benzodiazepines Scrn Urine Cocaine Screen U Marijuana (THC) Screen Ethyl Alcohol COVID-19 (SEAN) COVID-19 Clin Com Influenza Type A (TAMIKO) Influenza Type B (TAMIKO) Influenza A & B Note 03/01/22 03/01/22 03/01/22 18:13 18:13 18:13 MCV MCH MCHC RDW Plt Count MPV Immature Gran % (Auto) Neut % (Auto) Lymph % (Auto) [place] % (Auto) Eos % (Auto) Baso % (Auto) Lymph # (Auto) [place] # (Auto) Eos # (Auto) Baso # (Auto) Abs Immat Gran (auto) Absolute Neuts (auto) Absolute Nucleated RBC Nucleated RBC % (auto) Smear Tech's Comments PT INR D-Dimer High Sensitivty VBG pH VBG pCO2 VBG pO2 VBG HCO3 VBG O2 Saturation VBG Base Excess Anion Gap Estim Creat Clear Calc Estimated GFR Random Glucose Lactic Acid Calcium Magnesium Total Bilirubin Direct Bilirubin AST ALT Alkaline Phosphatase Ammonia Troponin I High Sens 6.9 D B-Natriuretic Peptide Total Protein Albumin Urine Color Urine Appearance Urine pH Ur Specific [place] Urine Protein Urine Glucose (UA) Urine Ketones Urine Blood Urine Nitrite Ur Leukocyte Esterase Urine RBC Urine WBC Ur Squamous Epith Cells Urine Bacteria Hyaline Casts Urine Opiates Screen Urine Fentanyl Screen Ur Barbiturates Screen Ur Phencyclidine Scrn Ur Amphetamines Screen U Benzodiazepines Scrn Urine Cocaine Screen U Marijuana (THC) Screen Ethyl Alcohol COVID-19 (SEAN) Negative COVID-19 Clin Com See Note Influenza Type A (TAMIKO) Negative Influenza Type B (TAMIKO) Negative Influenza A & B Note See Note 03/01/22 03/01/22 03/01/22 18:21 18:39 18:39 MCV MCH MCHC RDW Plt Count MPV Immature Gran % (Auto) Neut % (Auto) Lymph % (Auto) [place] % (Auto) Eos % (Auto) Baso % (Auto) Lymph # (Auto) [place] # (Auto) Eos # (Auto) Baso # (Auto) Abs Immat Gran (auto) Absolute Neuts (auto) Absolute Nucleated RBC Nucleated RBC % (auto) Smear Tech's Comments PT INR D-Dimer High Sensitivty VBG pH 7.52 H VBG pCO2 38 VBG pO2 97 VBG HCO3 31 H VBG O2 Saturation 99.0 VBG Base Excess 8.4 Anion Gap Estim Creat Clear Calc Estimated GFR Random Glucose Lactic Acid Calcium Magnesium Total Bilirubin Direct Bilirubin AST ALT Alkaline Phosphatase Ammonia Troponin I High Sens B-Natriuretic Peptide Total Protein Albumin Urine Color Yellow Urine Appearance Clear Urine pH 6.5 Ur Specific [place] 1.020 Urine Protein 300 (3+) H Urine Glucose (UA) Negative Urine Ketones 80 Urine Blood Trace H Urine Nitrite Negative Ur Leukocyte Esterase Negative Urine RBC 0-2 Urine WBC 0-5 Ur Squamous Epith Cells 0-2 Urine Bacteria None Seen Hyaline Casts 0-2 Urine Opiates Screen Not Detected Urine Fentanyl Screen Not Detected Ur Barbiturates Screen Not Detected Ur Phencyclidine Scrn Not Detected Ur Amphetamines Screen Not Detected U Benzodiazepines Scrn Not Detected Urine Cocaine Screen Not Detected U Marijuana (THC) Screen POSITIVE H Ethyl Alcohol COVID-19 (SEAN) COVID-19 Clin Com Influenza Type A (TAMIKO) Influenza Type B (TAMIKO) Influenza A & B Note 03/01/22 03/01/22 03/01/22 19:18 19:18 19:18 MCV MCH MCHC RDW Plt Count MPV Immature Gran % (Auto) Neut % (Auto) Lymph % (Auto) [place] % (Auto) Eos % (Auto) Baso % (Auto) Lymph # (Auto) [place] # (Auto) Eos # (Auto) Baso # (Auto) Abs Immat Gran (auto) Absolute Neuts (auto) Absolute Nucleated RBC Nucleated RBC % (auto) Smear Tech's Comments PT INR D-Dimer High Sensitivty VBG pH VBG pCO2 VBG pO2 VBG HCO3 VBG O2 Saturation VBG Base Excess Anion Gap 20 Estim Creat Clear Calc 93.7 Estimated GFR > 60 Random Glucose 117 H Lactic Acid Calcium 9.4 D Magnesium 1.7 Total Bilirubin 0.2 Direct Bilirubin < 0.2 AST 30 ALT 12 Alkaline Phosphatase 84 Ammonia 24 Troponin I High Sens B-Natriuretic Peptide 65 Total Protein 7.6 Albumin 4.2 Urine Color Urine Appearance Urine pH Ur Specific [place] Urine Protein Urine Glucose (UA) Urine Ketones Urine Blood Urine Nitrite Ur Leukocyte Esterase Urine RBC Urine WBC Ur Squamous Epith Cells Urine Bacteria Hyaline Casts Urine Opiates Screen Urine Fentanyl Screen Ur Barbiturates Screen Ur Phencyclidine Scrn Ur Amphetamines Screen U Benzodiazepines Scrn Urine Cocaine Screen U Marijuana (THC) Screen Ethyl Alcohol COVID-19 (SEAN) COVID-19 Clin Com Influenza Type A (TAMIKO) Influenza Type B (TAMIKO) Influenza A & B Note 03/01/22 03/01/22 03/02/22 19:18 21:12 05:59 MCV 84.2 MCH 26.4 L MCHC 31.4 RDW 15.6 Plt Count 326 MPV 10.7 Immature Gran % (Auto) 0.5 H Neut % (Auto) 92.4 H Lymph % (Auto) 5.2 L [place] % (Auto) 1.8 L Eos % (Auto) 0.0 Baso % (Auto) 0.1 Lymph # (Auto) 0.4 L [place] # (Auto) 0.2 Eos # (Auto) 0.0 Baso # (Auto) 0.0 Abs Immat Gran (auto) 0.04 H Absolute Neuts (auto) 7.6 Absolute Nucleated RBC 0.000 Nucleated RBC % (auto) 0.0 Smear Tech's Comments VERIFIED PT INR D-Dimer High Sensitivty 169 VBG pH VBG pCO2 VBG pO2 VBG HCO3 VBG O2 Saturation VBG Base Excess Anion Gap Estim Creat Clear Calc Estimated GFR Random Glucose Lactic Acid Calcium Magnesium Total Bilirubin Direct Bilirubin AST ALT Alkaline Phosphatase Ammonia Troponin I High Sens B-Natriuretic Peptide Total Protein Albumin Urine Color Urine Appearance Urine pH Ur Specific [place] Urine Protein Urine Glucose (UA) Urine Ketones Urine Blood Urine Nitrite Ur Leukocyte Esterase Urine RBC Urine WBC Ur Squamous Epith Cells Urine Bacteria Hyaline Casts Urine Opiates Screen Urine Fentanyl Screen Ur Barbiturates Screen Ur Phencyclidine Scrn Ur Amphetamines Screen U Benzodiazepines Scrn Urine Cocaine Screen U Marijuana (THC) Screen Ethyl Alcohol < 10 COVID-19 (SEAN) COVID-19 Clin Com Influenza Type A (TAMIKO) Influenza Type B (TAMIKO) Influenza A & B Note 03/02/22 05:59 MCV MCH MCHC RDW Plt Count MPV Immature Gran % (Auto) Neut % (Auto) Lymph % (Auto) [place] % (Auto) Eos % (Auto) Baso % (Auto) Lymph # (Auto) [place] # (Auto) Eos # (Auto) Baso # (Auto) Abs Immat Gran (auto) Absolute Neuts (auto) Absolute Nucleated RBC Nucleated RBC % (auto) Smear Tech's Comments PT INR D-Dimer High Sensitivty VBG pH VBG pCO2 VBG pO2 VBG HCO3 VBG O2 Saturation VBG Base Excess Anion Gap 18 Estim Creat Clear Calc 75.3 Estimated GFR > 60 Random Glucose 117 H Lactic Acid Calcium 9.8 Magnesium Total Bilirubin Direct Bilirubin AST ALT Alkaline Phosphatase Ammonia Troponin I High Sens B-Natriuretic Peptide Total Protein Albumin Urine Color Urine Appearance Urine pH Ur Specific [place] Urine Protein Urine Glucose (UA) Urine Ketones Urine Blood Urine Nitrite Ur Leukocyte Esterase Urine RBC Urine WBC Ur Squamous Epith Cells Urine Bacteria Hyaline Casts Urine Opiates Screen Urine Fentanyl Screen Ur Barbiturates Screen Ur Phencyclidine Scrn Ur Amphetamines Screen U Benzodiazepines Scrn Urine Cocaine Screen U Marijuana (THC) Screen Ethyl Alcohol COVID-19 (SEAN) COVID-19 Clin Com Influenza Type A (TAMIKO) Influenza Type B (TAMIKO) Influenza A & B Note Assessment and Plan (1) Encephalopathy: Status: Acute (2) Chronic lung disease: Status: Acute (3) Drug withdrawal seizure: Status: Acute Plan 66-year-old female with past medical history of COPD as well as hypertension presents to the hospital with complaints of shortness of breath head witnessed seizure while in the ED after being withheld her Ativan for 2-3 days. # acute metabolic encephalopathy status post benzo withdrawal seizure, now awake alert, continue home dose of Ativan, CT head unremarkable, UA benign, hypoxia resolved. Elevated blood pressure, tachypnea tachycardia and shortness of breath likely due to benzo withdrawal all symptoms resolved with administration of ativan. # benzo withdrawal seizure - resume home Ativan dose , continue seizure precautions # COPD - no acute exacerbation, will continue home dose of oxygen 5 L, continue all home inhalers, chest x-ray showed no consolidation. # hypertension - on admission noted to have elevated blood pressure, now improved on diltiazem CD 3 60 mg daily # chronic sinus tachycardia likely due to anxiety DVT prophylaxis:? Lovenox Will monitor patient for 24 hours of remains stable will be discharged home tomorrow will be receiving her regular prescription of Ativan tomorrow. Time Spent With Patient Time: Total time managing care of this patient today ____ minutes. Quality Stroke Does the patient have a stroke diagnosis?: No VTE Prior VTE?: No VTE Risk Level:: Medical - moderate - high VTE Device Contraindication: Treatment Not Indicated VTE Drug Contraindication: N/A - Med Ordered
[2022-03-02 15:26] VITALS: BP 117/70; PULSE 101; RESP 17; TEMP 36.2; O2SAT 94
[2022-03-02 19:35] VITALS: BP 132/57; PULSE 112; RESP 17; TEMP 37.1; O2SAT 94
[2022-03-02] MEDS: oxyCODONE HCl Immed Release 5 MG TABLET PO (21:13)
[2022-03-03] MEDS: diphenhydrAMINE HCL 25 MG CAPSULE 50 MG PO (01:20)
[2022-03-03] MEDS: Acetaminophen 325 MG TABLET 650 MG PO (01:20)
[2022-03-03] MEDS: Ipratropium Bromide 0.5 MG/2.5 ML SOLUTION INHALE ×3 (02:10→13:17)
[2022-03-03] MEDS: Albuterol Sulfate (0.083%) 2.5 MG/3 ML VIAL.NEB INHALE ×3 (02:10→13:17)
[2022-03-03 02:21] VITALS: PULSE 106; RESP 17; O2SAT 97
[2022-03-03] MEDS: LORazepam 1 MG TABLET 2 MG PO ×2 (02:22→08:48)
[2022-03-03 03:54] VITALS: BP 127/58; PULSE 90; RESP 16; TEMP 36.2; O2SAT 99
[2022-03-03 06:11] VITALS: PULSE 90; RESP 16; O2SAT 97
[2022-03-03 08:00] VITALS: BP 101/50; PULSE 79; RESP 16; TEMP 36.2; O2SAT 98
[2022-03-03] MEDS: 0.9 % Sodium Chloride Flush 3 ML SYRINGE IVFLUSH (08:46)
[2022-03-03] MEDS: dilTIAZem HCL CD 180 MG CAP.ER.24H 360 MG PO (08:49)
--- NOTE | 2022-03-03 11:27 | PM.DS ---
DS: Providers Provider Date of Service: 03/03/22 Date of admission: 03/02/22 10:48 Primary care physician: Mickey Guaman MD DS: Diagnosis Discharge Diagnosis (1) Encephalopathy: Status: Acute (2) Chronic lung disease: Status: Acute (3) Drug withdrawal seizure: Status: Acute DS: Summary Hospital Course Hospital Course: History of presenting illness Date of Service: 03/01/22 Chief Complaint: Shortness of breath, 66-year-old female with chronic hypoxic respiratory failure on baseline 5 L of oxygen, asthma, hypertension, vertigo presents to the hospital with complaints of shortness of breath and increased oxygen requirement.? On my interview patient is completely obtunded there for a number able to get history from her, history is obtained mostly from ED physician.? It appears that patient reported shortness of breath, with no increased cough or sputum production.? Patient was found to be 90% on 6 L of oxygen.? It appears the patient lives in a hotel, and herself have refused VNA in the past.? While in the ED patient appear to be confused, and while waiting further workup, she had 1 witness seizure episode.? After discussing this case with her it appears the patient was on benzodiazepines p.r.n. chronically, she was stressed lately, so she took more than her prescribed dose and she ran out of Ativan about 2-3 days ago and has been without it for that long.? Her reports that when she runs out of her Ativan she usually has seizures.? On arrival to the ED patient hemodynamically stable with an elevated heart rate that has now improved, respiratory rate of 28, blood pressure of 191/109, satting 91% on 6 L Labs are found to be significant for WBC count of 9.2, venous pH of 7.52, CO2 of 38, lactic acid normal, troponin normal, BNP normal, urine negative for infection, UDS positive for marijuana, viral serology negative, chest x-ray negative, has CT negative. Patient given IV Ativan as well as 1500 mg of Keppra and will be admitted for observation. Hospital course 66-year-old female with past medical history of COPD as well as hypertension presents to the hospital with complaints of shortness of breath head witnessed seizure while in the ED after being withheld her Ativan for 2-3 days. # acute metabolic encephalopathy resolved was likely due to benzo withdrawal seizure, now awake alert, continue home dose of Ativan, CT head unremarkable, UA benign, hypoxia resolved, initial elevated blood pressure, tachypnea, tachycardia and shortness of breath were likely due to benzo withdrawal, all symptoms resolved with administration of ativan, no recurrent seizures were noted during hospitalization recommended patient to take Ativan as prescribed by provider not to take extra dosages and do not stop Ativan abruptly can talk to primary care physician to gradually wean Ativan if appropriate. patient complained of right arm pain noted to have normal examination with no evidence of swelling, redness, or warmth recommended to take Tylenol/advil as needed. ?? # COPD, no acute exacerbation, continue home dose of oxygen 5 L, continue all home inhalers, chest x-ray showed no consolidation. # hypertension- on admission noted to have elevated blood pressure, improved on diltiazem CD 360 mg daily # chronic sinus tachycardia likely due to anxiety improved. Time Spent with Patient Time attestation: Total time managing care of this patient today ____ minutes. Discharge coordination time: Greater than 30 minutes Quality: Safe Use of Opioids Does Pt have an Active Cancer Diagnosis on the Problem List?: No Quality: Stroke Does the patient have a stroke diagnosis?: No Physical Exam Vital Signs: Vital Signs: Last Vital Signs Temp 97.2 F 03/03/22 08:00 Pulse 79 03/03/22 08:00 Resp 16 03/03/22 08:00 BP 101/50 L 03/03/22 08:00 Pulse Ox 98 03/03/22 08:00 O2 Del Method 03/03/22 08:00 O2 Flow Rate 3.5 03/03/22 08:00 Oxygen Flow Rate 6 03/01/22 17:41 BMI result Body Mass Index 20.2 Const: Other: General sitting comfortably in no acute distress, talking in full sentences.? Neck is supple no JVD. CVS? regular rate rhythm, Respiratory lungs diminished, no respiratory distress, no wheeze, no rhonchi. Gastrointestinal abdomen soft, nontender, bowel sounds audible, no guarding , no rigidity. Extremities no edema.? Right upper arm with no warmth, no redness, no bruising, at times patient has no pain with deep palpation and on repeat exam patient jumps with pain.? Neuro nonfocal , speech clear. Skin no rash Psych anxious DS: Data Data Completed and Pending Labs on day of discharge: Preliminary micro results at discharge 03/01/22 19:18 Blood Culture - Preliminary Blood - Venous No growth after 24 hours. 03/01/22 19:18 Blood Culture - Preliminary Blood - Venous No growth after 24 hours. Discharge Plan Discharge Anticipated Discharge Date/Time: 03/03/22 11:20 Patient Disposition: Home, Self-Care Discharge Diagnosis: Drug withdrawal seizure Referrals: Name,MD Mickey [Primary Care Provider] - 1 Week Discharge Medications: Continued albuterol sulfate 2.5 mg /3 mL (0.083 %) solution for nebulization 1 vial inhalation Q6H Rx Instructions: TAKE WITH IPROTROPIUM BROMIDE 0.02% poefxukxag-[id number]-izvb 50-325-40 mg tablet 2 tab PO Q12H PRN (Reason: Migraine Headache) Rx Instructions: not to exceed 6 tabs/24 hours ipratropium bromide 0.02 % solution 2.5 ml inhalation Q6H Rx Instructions: TAKE WITH ALBUTEROL 0.083% diltiazem HCl 360 mg capsule,extended release 24 hr 1 cap PO DAILY lorazepam 2 mg tablet 1 tab PO Q6H PRN (Reason: anxiety) Atrovent HFA 17 mcg/actuation HFA aerosol inhaler 2 puff inhalation QID PRN (Reason: Shortness Of Breath Or Wheezing) ibuprofen [Advil] 200 mg Tablet 400 mg PO Q8H PRN (Reason: Headache) oxymetazoline 0.05 % [place],Non-Aerosol 2 spray INTRANASAL Q12H PRN (Reason: Congestion) diphenhydramine HCl [Benadryl Allergy] 25 mg Tablet 50 mg PO BEDTIME PRN (Reason: Insomnia) fluticasone propion-salmeterol [Wixela Inhub] 250-50 mcg/dose blister with device 1 puff inhalation BID PRN (Reason: severe sob) Discharge Orders: Discharge Order (Routine); Ordered 03/03/22 Ordered By: Ashwin Benson Diet: Advance to usual diet Activity on Discharge: As tolerated Stand Alone Forms: Patient Portal Discharge page Care Plan Goals: Continue all home medications as before, take medications as prescribed by provider. Do not take Ativan more than scheduled dose, do not stop Ativan since that can cause recurrent seizures, can gradually wean as per PCP COPD with no acute exacerbation chest x-ray showed no acute disease Health Concerns: Resume all home medications Plan of Treatment: Follow-up with primary care physician call for appointment Assessment: As above
--- NOTE | 2022-03-03 12:13 | MHC.CM.PN ---
PATIENT TO RETURN HOME TODAY FOR 1430 VIA [facility] SIGNIFICANT OTHER, DALILA AWARE (CALL TO PHONE NUMBER LISTED IN CONTACTS) RN AND UNIT AWARE PATIENT IN AGREEMENT WITH PLAN
[2022-03-03 13:19] VITALS: PULSE 92; RESP 18; O2SAT 96
== END 2022-03-03 14:52 | disposition home or self-care (01) | DRG 897 ==
LOC: HO.ED 23:56 → HO.EDOVER 03-02 00:09 → HO.S3 03-02 00:16
PROVIDERS: Admitting Provider Internal Medicine; Emergency Provider Emergency Medicine; PCP Internal Medicine Geriatric Medicine; Visit Provider Hospitalist
DX: F13.939 Sedative, hypnotic or anxiolytic use, unspecified with withdrawal, unspecified (principal); J96.11 Chronic respiratory failure with hypoxia; R56.9 Unspecified convulsions; T42.4X6A Underdosing of benzodiazepines, initial encounter; I10 Essential (primary) hypertension; F41.9 Anxiety disorder, unspecified; J44.9 Chronic obstructive pulmonary disease, unspecified; R00.0 Tachycardia, unspecified; Z20.822 Contact with and (suspected) exposure to COVID-19; Z87.891 Personal history of nicotine dependence; Z88.0 Allergy status to penicillin; Z99.81 Dependence on supplemental oxygen; Z88.2 Allergy status to sulfonamides; Z88.5 Allergy status to narcotic agent; Z79.51 Long term (current) use of inhaled steroids; Z79.899 Other long term (current) drug therapy
CPT/HCPCS: 36415; 70450; 71045; 80048; 80076; 80307; 81001; 82077; 82140; 82803; 83605; 83735; 83880; 84484; 85025; 85379; 85610; 87040; 87502; 87635; 93005; 94640; 99221; 99285; J1650; J1953; J2060; J2930

== ENCOUNTER 2022-03-10 12:20 | Inpatient (IN) | payer MEDICARE, SELFPAY ==
[2022-03-10] VITALS (8 sets, daily range): BP systolic 97–122; BP diastolic 45–51; PULSE 71–125; RESP 16–22; TEMP 36.6–37.1; O2SAT 93–100; BMI 26.5; BMI 25.7
--- NOTE | ~2022-03-10 | XR_ITS ---
EXAMINATION: XR CHEST CLINICAL INFORMATION: Shortness of breath COMPARISON: Chest radiograph 03/01/2022, CT angiogram chest 12/22/2021 TECHNIQUE: Frontal view of the chest was obtained. FINDINGS: Heart size within normal limits. No evidence of CHF. Evidence of COPD with apical lucency seen, much better characterized on the CT scan. Linear atelectasis right midlung. Some improvement of previously seen atelectasis at the left lung base with some minimal residual abnormality. No consolidations, effusions or lung masses. XR/XR chest 1V IMPRESSION: COPD. No acute intrathoracic disease.
--- NOTE | ~2022-03-10 | XR_ITS ---
EXAMINATION: XR SHOULDER , RIGHT CLINICAL INFORMATION: Pain COMPARISON: None available at the time of this dictation. TECHNIQUE: Frontal lateral and scapular Y view of the shoulder. FINDINGS: BONES: There is no fracture or dislocation, no osteolytic or osteoblastic lesion. JOINTS: Glenohumeral joint is properly positioned. Adjacent AC joint is normal. SOFT TISSUE AND INCLUDED LUNG: Normal. XR/XR shoulder RT min 2V IMPRESSION: No radiographic evidence of acute fracture or dislocation.
--- NOTE | ~2022-03-10 | CT_ITS ---
EXAMINATION: CT ANGIOGRAM OF THE CHEST WITH AND WITHOUT CONTRAST (CT PULMONARY ANGIOGRAM FOR PE) CLINICAL INFORMATION: Reason for Exam + dimer, CP, SOB COMPARISON: CT chest 12/22/2021 TECHNIQUE: Prior to contrast administration, noncontrast localization images were obtained. Subsequently, multidetector volumetric imaging was performed from the thoracic inlet to below the diaphragms following the administration of 65 mL Omnipaque 350 intravenous contrast. No contrast reaction reported Sagittal, coronal, and MIP oblique sagittal reformatted images were obtained on the CT workstation, uploaded to PACS, and reviewed. This CT examination was performed using dose optimization techniques as appropriate, variously including the following: *Automated exposure control *Adjustment of mA and/or kV according to patient size (this includes techniques or standardized protocols for targeted exams where dose is matched to indication/reason for exam; i.e. extremities or head) *Use of iterative reconstruction technique Total exam dose-length product 212 mGy-cm FINDINGS: QUALITY OF STUDY/CONTRAST BOLUS: Satisfactory. PULMONARY ARTERIES: No central or segmental pulmonary emboli. THORACIC AORTA: No aneurysm or dissection. Atherosclerotic vascular wall calcifications of aorta. LUNG: Marked emphysematous change of lungs. There is architectural distortion and parenchymal scarring. No acute airspace disease. No suspicious lung nodule. PLEURA: No pleural effusion or pneumothorax. MEDIASTINUM: Heart size is normal. No pericardial effusion. No evidence of septal bowing or right heart strain. CORONARY ARTERY CALCIFICATION: Moderate volume of coronary artery calcification CHEST WALL/AXILLA: No axillary or internal mammary lymphadenopathy. OSSEOUS STRUCTURES: No acute or suspicious osseous abnormality. UPPER ABDOMEN: Multiple small radiolucent gallstones in the gallbladder. Visualized portions of liver, spleen, pancreas, kidneys and adrenal glands are unremarkable. No reflux of contrast into the hepatic veins to suggest elevated right heart pressures. CT/CT angio chest PE protocol IMPRESSION: 1. No evidence of pulmonary embolism. 2. Marked emphysematous change of lungs. No acute airspace disease. VTE: negative
--- NOTE | 2022-03-10 12:27 | ECG_ITS ---
Test Reason : CHEST PAIN Blood Pressure : / mmHG Vent. Rate : 097 BPM Atrial Rate : 097 BPM P-R Int : 142 ms QRS Dur : 088 ms QT Int : 344 ms P-R-T Axes : 075 059 073 degrees QTc Int : 436 ms Artifact on tracing Sinus rhythm with Premature ventricular complexes or Fusion complexes Nonspecific ST abnormality Abnormal ECG When compared with ECG of 01-MAR-2022 19:54, No significant changes seen Referred By: Generic ED Physician Electronically Signed By:Jose Petersen
--- NOTE | 2022-03-10 13:04 | ED.GENADULT ---
HPI - General Adult General Chief complaint: Upper Respiratory Symptoms <GABRIELA Beckman - Last Filed: 03/10/22 18:38> Stated complaint: SOB,DIZZY,CP W/BREATHING, 91% 5PM HOME O2 <GABRIELA Beckman - Last Filed: 03/10/22 18:38> Time Seen by Provider: 03/10/22 13:04 <GABRIELA Beckman - Last Filed: 03/10/22 18:38> Source: patient and EMS <GABRIELA Beckman Last Filed: 03/10/22 18:38> Mode of arrival: EMS <GABRIELA Beckman Last Filed: 03/10/22 18:38> Limitations: no limitations <GABRIELA Beckman Last Filed: 03/10/22 18:38> History of Present Illness HPI narrative: Patient is a 66 year old assigned female at with a history of COPD on 5LPM of oxygen via NC presenting to the emergency department today with shortness of breath and chest pain. Patient states that over the last day or so she has had worsening shortness of breath and intermittent chest pain. Patient states that she is now having right arm pain and left sided chest pain. Patient denies any dizziness, lightheadedness, abdominal pain, nausea, vomiting, fever, chills, blurry vision, double vision, loss of vision, back pain, night sweats, pain with urination, increased urinary frequency, increased urinary urgency, blood in [his/her/their] urine or stool, syncope or a near syncopal episode, recent trauma or falls, bowel incontinence, bladder incontinence, bowel retention, bladder retention, or any other complaints at this time. <GABRIELA Beckman - Last Filed: 03/10/22 18:38> Onset (ago): day(s) (1) <GABRIELA Beckman - Last Filed: 03/10/22 18:38> Location: chest <GABRIELA Beckman Last Filed: 03/10/22 18:38> Severity: mild <GABRIELA Beckman Last Filed: 03/10/22 18:38> Severity scale (1-10): 3 <GABRIELA Beckman Last Filed: 03/10/22 18:38> Relieving factors: none <GABRIELA Beckman - Last Filed: 03/10/22 18:38> Exacerbating factors: none <GABRIELA Beckman - Last Filed: 03/10/22 18:38> Associated symptoms: shortness of breath <GABRIELA Beckman - Last Filed: 03/10/22 18:38> Treatments prior to arrival: none <GABRIELA Beckman - Last Filed: 03/10/22 18:38> Related Data Home medications: Home Medications Medication Instructions Recorded Confirmed albuterol sulfate 2.5 mg/3 mL 1 vial inhalation Q6H 10/04/20 03/10/22 (0.083 %) solution for nebulization [id number]-[id number]-[id number] 2 tab PO Q12H PRN Migraine Headache 10/04/20 03/10/22 50 mg-325 mg-40 mg tablet diltiazem HCl 360 mg capsule,24 1 cap PO DAILY 07/08/21 03/10/22 hr,extended release lorazepam 2 mg tablet 1 tab PO Q6H PRN anxiety 07/08/21 03/10/22 ipratropium bromide 0.02 % 2.5 ml inhalation Q6H 09/25/21 03/10/22 solution for inhalation fluticasone 250 mcg-salmeterol 50 1 puff inhalation BID PRN severe 03/02/22 03/10/22 mcg/dose blistr powdr for sob inhalation (Wixela Inhub) <GABRIELA Beckman Last Filed: 03/10/22 18:38> Allergies/adverse reactions: Allergies Allergy/AdvReac Type Severity Reaction Status Date / Time morphine [MORPHINE] Allergy Severe HIVES, Verified 03/10/22 12:38 high temp, nausea tramadol [TRAMADOL] Allergy Severe SWEATING, Verified 03/10/22 12:38 VOMITING, vomiting Sulfa (Sulfonamide Allergy Unknown Verified 03/10/22 12:38 Antibiotics) amoxicillin [From AUGMENTIN] AdvReac Severe CONSTIPATIO Verified 03/10/22 12:38 N clavulanic acid AdvReac Severe CONSTIPATIO Verified 03/10/22 12:38 [From AUGMENTIN] N codeine [CODEINE] AdvReac Severe NAUSEA Verified 03/10/22 12:38 levofloxacin [From LEVAQUIN] AdvReac Severe CONSTIPATIO Verified 03/10/22 12:38 N Sulfa(Sulfonamide Allergy Unknown Unknown Uncoded 03/10/22 12:38 Antibiotics) <GABRIELA Beckman Last Filed: 03/10/22 18:38> Review of Systems Constitutional: Constitutional: Reports no additional constitutional complaints, Denies chills, Denies fever(s) and Denies night sweats <GABRIELA Beckman Last Filed: 03/10/22 18:38> Eyes: Eyes: Reports no additional eye complaints, Denies blurry vision, Denies change in vision, Denies diplopia, Denies eye discharge, Denies loss of vision and Denies eye pain <GABRIELA Beckman Last Filed: 03/10/22 18:38> ENT: Denies dizziness <GABRIELA Beckman Last Filed: 03/10/22 18:38> Cardiovascular: Cardiovascular: Reports no additional cardiovascular complaints, Reports chest pain, Denies lightheadedness, Denies Loss of Consciousness and Reports dyspnea <GABRIELA Beckman Last Filed: 03/10/22 18:38> Respiratory: Respiratory: Reports no additional respiratory complaints and Reports dyspnea <GABRIELA Beckman Last Filed: 03/10/22 18:38> Gastrointestinal: Gastrointestinal: Reports no additional gastrointestinal complaints, Denies abdominal pain, Denies melena, Denies hematochezia, Denies change in bowel habits and Denies change in stool character <GABRIELA Beckman Last Filed: 03/10/22 18:38> Genitourinary: Genitourinary: Denies hematuria, Denies urinary frequency, Denies dysuria, Denies urinary incontinence, Denies urinary hesitancy and Denies urinary urgency <GABRIELA Beckman Last Filed: 03/10/22 18:38> Musculoskeletal: Musculoskeletal: Reports no additional musculoskeletal complaints, Denies numbness and Denies tingling <GABRIELA Beckman Last Filed: 03/10/22 18:38> Neurologic: Denies dizziness, Denies loss of vision, Denies numbness and Denies tingling <GABRIELA Beckman Last Filed: 03/10/22 18:38> Psychiatric: Psychiatric: Reports no additional psychiatric complaints <GABRIELA Beckman Last Filed: 03/10/22 18:38> Endocrine: Endocrine: Reports no additional endocrine complaints <GABRIELA Beckman - Last Filed: 03/10/22 18:38> Hematologic/Lymphatic: Hematologic/Lymphatic: Reports no additional hematologic/lymphatic complaints <GABRIELA Beckman - Last Filed: 03/10/22 18:38> Allergic/Immunologic: Allergic/Immunologic: Reports no additional allergic/immunologic complaints <GABRIELA Beckman - Last Filed: 03/10/22 18:38> [facility] Past Medical History Attestation statement: The following information was validated with the patient. <GABRIELA Beckman - Last Filed: 03/10/22 18:38> Source: old records reviewed and nursing notes reviewed <GABRIELA Beckman - Last Filed: 03/10/22 18:38> Medical History: Medical History Acute and chronic respiratory failure with hypoxia Anxiety Asthma Bronchitis Chronic obstructive pulmonary disease with hypoxia Chronic respiratory failure COPD (chronic obstructive pulmonary disease) Diverticulitis Dizziness Emphysema lung Hypertension Otitis media Pulmonary abscess Vertigo <GABRIELA Beckman - Last Filed: 03/10/22 18:38> Surgical History: Surgical History History of breast surgery History of laparotomy <GABRIELA Beckman - Last Filed: 03/10/22 18:38> Family History Family History: Family History Other No family history of coronary artery disease <GABRIELA Beckman - Last Filed: 03/10/22 18:38> Social History Social History: Social History Household Members: Spouse Housing: Other Housing Other:: Hotel Do you presently have visiting nurse or other home services: No Alcohol intake: never Patient Tobacco Use Status: Former Tobacco user Tobacco use type: Cigarette Substance Use Type: Marijuana Advance Directives: Yes Advance Directives on File: Yes Advance Directives Date on File: 07/09/21 service: No Current occupational status: disabled <GABRIELA Beckman - Last Filed: 03/10/22 18:38> Physical Exam ED Vital Signs: Vital Signs - 24 hr 03/10/22 12:31 03/10/22 14:50 03/10/22 18:20 Temperature 98 F 98.7 F Pulse Rate 94 125 H Respiratory Rate 18 21 H Blood Pressure 110/51 L Pulse Oximetry 94 93 97 Oxygen Delivery Method Nasal Cannula Nasal Cannula Nasal Cannula Oxygen Flow Rate 6 03/10/22 20:27 Temperature 98.5 F Pulse Rate 93 Respiratory Rate 22 H Blood Pressure 116/47 L Pulse Oximetry 100 Oxygen Delivery Method Nasal Cannula Oxygen Flow Rate 6 BMI result Body Mass Index 25.7 <GABRIELA Beckman Last Filed: 03/10/22 18:38> Vital Signs - 24 hr 03/10/22 12:31 03/10/22 14:50 03/10/22 18:20 Temperature 98 F 98.7 F Pulse Rate 94 125 H Respiratory Rate 18 21 H Blood Pressure 110/51 L Pulse Oximetry 94 93 97 Oxygen Delivery Method Nasal Cannula Nasal Cannula Nasal Cannula Oxygen Flow Rate 6 03/10/22 20:27 Temperature 98.5 F Pulse Rate 93 Respiratory Rate 22 H Blood Pressure 116/47 L Pulse Oximetry 100 Oxygen Delivery Method Nasal Cannula Oxygen Flow Rate 6 BMI result Body Mass Index 25.7 <Becky Caldera MD - Last Filed: 03/10/22 20:42> Const General: cooperative, no acute distress, alert and awake <GABRIELA Beckman Last Filed: 03/10/22 18:38> Nutritional Appearance: well nourished <GABRIELA Beckman Last Filed: 03/10/22 18:38> Orientation/consciousness: patient oriented x3 <GABRIELA Beckman Last Filed: 03/10/22 18:38> Limitations: no limitations <GABRIELA Beckman Last Filed: 03/10/22 18:38> HENMT Head: Yes normal to inspection and Yes atraumatic <GABRIELA Beckman Last Filed: 03/10/22 18:38> Ears: hearing grossly normal bilaterally and external ears normal <GABRIELA Beckman Last Filed: 03/10/22 18:38> General nose exam: Normal external nose present, no nasal discharge noted and no epistaxis <GABRIELA Beckman Last Filed: 03/10/22 18:38> Face and sinus: Yes normal facial exam, No abrasion and No laceration <April Paredes PA - Last Filed: 03/10/22 18:38> Mouth: Normal oral and palatal mucosa present, no drooling and no muffled voice <April Paredes PA - Last Filed: 03/10/22 18:38> Eyes General: appearance normal, both eyes and all related structures <April Paredes PA - Last Filed: 03/10/22 18:38> Periorbital: periorbital findings normal <April Paredes PA - Last Filed: 03/10/22 18:38> Eyelids: Yes eyelids normal <GABRIELA Beckman - Last Filed: 03/10/22 18:38> Conjunctivae: conjunctivae normal <April Paredes PA - Last Filed: 03/10/22 18:38> Pupils: Equal, round and reactive pupils present <GABRIELA Beckman - Last Filed: 03/10/22 18:38> EOM: EOMs intact bilaterally <April Paredes [place] - Last Filed: 03/10/22 18:38> Neck Neck: Yes normal visual inspection, Yes full ROM and Yes no lymphadenopathy <GABRIELA Beckman - Last Filed: 03/10/22 18:38> Chest Chest palpation & inspection: normal inspection of the chest <GABRIELA Beckman - Last Filed: 03/10/22 18:38> Resp Other: patient is on 5 LPM of oxygen via NC <April Paredes PA - Last Filed: 03/10/22 18:38> Effort & Inspection: normal respiratory effort and able to speak in complete sentences <GABRIELA Beckman - Last Filed: 03/10/22 18:38> Auscultation: clear to auscultation bilaterally <GABRIELA Beckman - Last Filed: 03/10/22 18:38> Cardio Rate: regular rate <GABRIELA Beckman - Last Filed: 03/10/22 18:38> Rhythm: regular rhythm <GABRIELA Beckman - Last Filed: 03/10/22 18:38> GI Inspection: Yes normal to inspection <GABRIELA Beckman - Last Filed: 03/10/22 18:38> Palpation (GI): Soft to palpation, not firm, nontender, no guarding and not rigid <April Paredes PA - Last Filed: 03/10/22 18:38> Neuro General: patient oriented x3 and moves all extremities <April ParedesGABRIELA - Last Filed: 03/10/22 18:38> Cranial nerves: Yes Equal, round and reactive pupils present <April Basurtokathryn PA - Last Filed: 03/10/22 18:38> Cognition (Neuro): normal cognition <April Paredes PA - Last Filed: 03/10/22 18:38> Motor exam (neuro): 5/5 motor strength present throughout <April Basurtokathryn PA - Last Filed: 03/10/22 18:38> Sensory Exam: Normal double simultaneous stimulation for sensation <April Basurtokathryn PA - Last Filed: 03/10/22 18:38> Coordination: elheta-nt-[id number] test normal <April Basurtokathryn PA - Last Filed: 03/10/22 18:38> Extrem General: Yes normal to inspection, Yes full ROM and Yes capillary refill normal <April Paredes PA - Last Filed: 03/10/22 18:38> Psych Appearance: grossly normal <April BasurtoGABRIELA peralta - Last Filed: 03/10/22 18:38> Mental Status: mental status grossly normal <April BasurtoGABRIELA peralta - Last Filed: 03/10/22 18:38> Affect: normal affect <Aprilgold BasurtoGABRIELA peralta - Last Filed: 03/10/22 18:38> Attitude: cooperative <April BasurtoGABRIELA peralta - Last Filed: 03/10/22 18:38> Thought process: Normal thought process present <April BasurtoGABRIELA peralta - Last Filed: 03/10/22 18:38> Thought content: Normal thought content present <April BasurtoGABRIELA peralta - Last Filed: 03/10/22 18:38> Insight: Good insight present (Psych) <Aprilgold BasurtoGABRIELA peralta - Last Filed: 03/10/22 18:38> Course Consultations Consultation #1: Spoke to Dr. Petersen who recommended starting the patient on Heparin, repeating the EKG, and repeating her troponin. States that if the patient cannot get pain free - she will need transferred. <GABRIELA Beckman - Last Filed: 03/10/22 18:38> Time: 18:11 <GABRIELA Beckman - Last Filed: 03/10/22 18:38> Medications Administered Generic Name Dose Route Start Last Admin Trade Name Freq PRN Reason Stop Dose Admin Heparin Sodium/Sodium Chloride 25,000 unit in 250 mls @ 0 mls/hr 03/10/22 18:30 03/10/22 19:20 Heparin Sodium,Porcine/1/2ns IVCONT 12 units/kg/hr .Q0M NARCISA 7.18 mls/hr Administration Protocol Per Protocol Discontinued Medications Generic Name Dose Route Start Last Admin Trade Name Freq PRN Reason Stop Dose Admin Albuterol Sulfate 5 mg 03/10/22 17:18 03/10/22 17:20 Albuterol Sulfate (0.083%) 2.5 Mg/3 Ml Vial.Neb INHALE 03/10/22 17:19 Not Given ONCE ONE Heparin Sodium (Porcine) 3,700 unit 03/10/22 18:03 03/10/22 19:11 Heparin Sodium,Porcine 5,000 Unit/Ml Vial 60 unit/kg (3700 unit) 03/10/22 18:04 3,700 unit IVPUSH Administration ONCE ONE Ceftriaxone Sodium 2 gm/ 50 mls @ 100 mls/hr 03/10/22 15:57 03/10/22 18:08 Sodium Chloride IV 03/10/22 16:26 Infused ONCE ONE Infusion <GABRIELA Beckman - Last Filed: 03/10/22 18:38> Medications Administered Generic Name Dose Route Start Last Admin Trade Name Freq PRN Reason Stop Dose Admin Heparin Sodium/Sodium Chloride 25,000 unit in 250 mls @ 0 mls/hr 03/10/22 18:30 03/10/22 19:20 Heparin Sodium,Porcine/1/2ns IVCONT 12 units/kg/hr .Q0M NARCISA 7.18 mls/hr Administration Protocol Per Protocol Discontinued Medications Generic Name Dose Route Start Last Admin Trade Name Freq PRN Reason Stop Dose Admin Albuterol Sulfate 5 mg 03/10/22 17:18 03/10/22 17:20 Albuterol Sulfate (0.083%) 2.5 Mg/3 Ml Vial.Neb INHALE 03/10/22 17:19 Not Given ONCE ONE Heparin Sodium (Porcine) 3,700 unit 03/10/22 18:03 03/10/22 19:11 Heparin Sodium,Porcine 5,000 Unit/Ml Vial 60 unit/kg (3700 unit) 03/10/22 18:04 3,700 unit IVPUSH Administration ONCE ONE Ceftriaxone Sodium 2 gm/ 50 mls @ 100 mls/hr 03/10/22 15:57 03/10/22 18:08 Sodium Chloride IV 03/10/22 16:26 Infused ONCE ONE Infusion <Becky Caldera MD - Last Filed: 03/10/22 20:42> Medical Decision Making Medical Decision Making MDM Narrative: Patient is a 66 year old assigned female at with a history of COPD on 5LPM of Oxygen via nasal cannula presenting to the emergency department today with increased shortness of breath and chest pain. Patient's physical exam showed an individual on 5 LPM of oxygen via nasal cannula. Patient's blood work showed an elevated WBC count of 12.9, an elevated BNP of 465, and an elevated initial troponin of 1063.6. Patient's initial and repeat EKGs were unremarkable. Patient's chest x-ray showed no acute process. I spoke to the systems planner telephonic nurse who recommended giving the patient the typical heparin dose, repeating the troponin at 1904, and obtaining a d dimer then following back up with him. I explained my physical exam findings as well as all test results to the patient. I answered all questions asked by the patient. Patient was signed out to Dr. Caldera pending repeat troponin and d-dimer results. <GABRIELA Beckman - Last Filed: 03/10/22 18:38> Patient is a 66 year old assigned female at with a history of COPD on 5LPM of Oxygen via nasal cannula presenting to the emergency department today with increased shortness of breath and chest pain. Patient's physical exam showed an individual on 5 LPM of oxygen via nasal cannula. Patient's blood work showed an elevated WBC count of 12.9, an elevated BNP of 465, and an elevated initial troponin of 1063.6. Patient's initial and repeat EKGs were unremarkable. Patient's chest x-ray showed no acute process. I spoke to the systems planner telephonic nurse who recommended giving the patient the typical heparin dose, repeating the troponin at 1904, and obtaining a d dimer then following back up with him. I explained my physical exam findings as well as all test results to the patient. I answered all questions asked by the patient. Patient was signed out to Dr. Caldera pending repeat troponin and d-dimer results. Troponin bumped from 1063 to 1209. Patient remains pain-free. Also, D-dimer is slightly positive, given her clinical presentation, we will go ahead and order the CT scan. Dr. Hoang has been informed and will follow up with the CT scan, patient being admitted <Becky Caldera MD - Last Filed: 03/10/22 20:42> Differential Diagnosis Differential Diagnoses: The differential diagnosis associated with the presentation includes <GABRIELA Beckman - Last Filed: 03/10/22 18:38> SOB, NSTEMI, Chronic lung disease <GABRIELA Beckman - Last Filed: 03/10/22 18:38> Consult Healthcare Provider Management of the patient was discussed with: Manager Process (spoke to the systems planner who recommended hepranizing the patient, obtaining a d dimer, and obtaining a repeat troponin) <GABRIELA Beckman - Last Filed: 03/10/22 18:38> Lab Data MDM Lab Attestation statement: I reviewed the patient's lab results. <GABRIELA Beckman - Last Filed: 03/10/22 18:38> Result Diagrams: 03/10/22 15:30 03/10/22 15:30 <GABRIELA Beckman - Last Filed: 03/10/22 18:38> Labs: Lab Results 03/10/22 03/10/22 03/10/22 Range/Units 13:43 15:30 15:30 WBC 12.9 H (4.8-10.8) X10*3/uL RBC 4.09 L (4.20-5.50) X10*6/uL Hgb 10.7 L (12.0-16.0) g/dl Hct 36.6 L (37.0-47.0) % MCV 89.5 (80.0-98.0) fL MCH 26.2 L (27.0-33.0) pg MCHC 29.2 L (31.0-35.0) g/dl RDW 15.6 (11.0-16.0) % Plt Count 319 (160-400) X10*3/uL MPV 9.2 L (9.4-12.3) fL Immature Gran % (Auto) 0.5 H (0.0-0.4) % Neut % (Auto) 83.6 H (45-73) % Lymph % (Auto) 8.1 L (20-40) % [place]mort[place] % (Auto) 7.6 (2-11) % Eos % (Auto) 0.0 (0-4) % Baso % (Auto) 0.2 (0-2) % Lymph # (Auto) 1.0 L (1.2-4.9) X10*3/uL [place]mort[place] # (Auto) 1.0 (0.1-1.2) X10*3/uL Eos # (Auto) 0.0 (0.0-0.4) X10*3/uL Baso # (Auto) 0.0 (0.0-0.2) X10*3/uL Abs Immat Gran (auto) 0.07 H (0.00-0.03) X10*3/uL Absolute Neuts (auto) 10.8 H (2.0-8.3) x10*3/uL Absolute Nucleated RBC 0.000 (0.0-0.012) X10*3/uL Nucleated RBC % (auto) 0.0 (0.0-0.2) /100WBC PT (10.0-13.1) SEC INR (0.9-1.1) APTT (26.0-36.4) SEC D-Dimer High Sensitivty NG/ML VBG pH (7.32-7.43) VBG pCO2 mmHg VBG pO2 mmHg VBG HCO3 (22-26) mmol/L VBG O2 Saturation % VBG Base Excess mmol/L Sodium 139 (135-145) mmol/L Potassium 4.9 (3.3-5.1) mmol/L Chloride 100 (96-108) mmol/L Carbon Dioxide 25 (22-29) mmol/L Anion Gap 19 (12-20) BUN 23 H (9-16) mg/dL Creatinine 1.03 (0.5-1.4) mg/dL Estim Creat Clear Calc 44.6 Estimated GFR 54 Random Glucose 134 H (60-115) mg/dL Lactic Acid (0.5-2.0) mmol/L Calcium 9.5 (8.4-10.2) mg/dL Total Bilirubin 0.2 (0.0-1.0) mg/dL AST 58 H (5-31) U/L ALT 38 H (0-31) U/L Alkaline Phosphatase 96 (39-117) U/L Troponin I High Sens (<3.5-17.0) ng/L B-Natriuretic Peptide (<100) pg/mL Total Protein 6.7 (6.5-8.0) g/dL Albumin 3.7 (3.5-5.0) g/dL Influenza Type A (PCR) NEGATIVE (Negative) Influenza Type B (PCR) NEGATIVE (Negative) RSV RNA Qual (PCR) NEGATIVE (Negative) SARS-CoV-2 RNA (RT-PCR) NEGATIVE (Negative) 03/10/22 03/10/22 03/10/22 Range/Units 15:30 15:32 17:04 WBC (4.8-10.8) X10*3/uL RBC (4.20-5.50) X10*6/uL Hgb (12.0-16.0) g/dl Hct (37.0-47.0) % MCV (80.0-98.0) fL MCH (27.0-33.0) pg MCHC (31.0-35.0) g/dl RDW (11.0-16.0) % Plt Count (160-400) X10*3/uL MPV (9.4-12.3) fL Immature Gran % (Auto) (0.0-0.4) % Neut % (Auto) (45-73) % Lymph % (Auto) (20-40) % [place]mort[place] % (Auto) (2-11) % Eos % (Auto) (0-4) % Baso % (Auto) (0-2) % Lymph # (Auto) (1.2-4.9) X10*3/uL [place] # (Auto) (0.1-1.2) X10*3/uL Eos # (Auto) (0.0-0.4) X10*3/uL Baso # (Auto) (0.0-0.2) X10*3/uL Abs Immat Gran (auto) (0.00-0.03) X10*3/uL Absolute Neuts (auto) (2.0-8.3) x10*3/uL Absolute Nucleated RBC (0.0-0.012) X10*3/uL Nucleated RBC % (auto) (0.0-0.2) /100WBC PT (10.0-13.1) SEC INR (0.9-1.1) APTT (26.0-36.4) SEC D-Dimer High Sensitivty NG/ML VBG pH 7.50 H (7.32-7.43) VBG pCO2 44 mmHg VBG pO2 169 mmHg VBG HCO3 35 H (22-26) mmol/L VBG O2 Saturation 99.0 % VBG Base Excess 11.0 mmol/L Sodium (135-145) mmol/L Potassium (3.3-5.1) mmol/L Chloride (96-108) mmol/L Carbon Dioxide (22-29) mmol/L Anion Gap (12-20) BUN (9-16) mg/dL Creatinine (0.5-1.4) mg/dL Estim Creat Clear Calc Estimated GFR Random Glucose (60-115) mg/dL Lactic Acid (0.5-2.0) mmol/L Calcium (8.4-10.2) mg/dL Total Bilirubin (0.0-1.0) mg/dL AST (5-31) U/L ALT (0-31) U/L Alkaline Phosphatase (39-117) U/L Troponin I High Sens 1063.6 H* D (<3.5-17.0) ng/L B-Natriuretic Peptide 465 H (<100) pg/mL Total Protein (6.5-8.0) g/dL Albumin (3.5-5.0) g/dL Influenza Type A (PCR) (Negative) Influenza Type B (PCR) (Negative) RSV RNA Qual (PCR) (Negative) SARS-CoV-2 RNA (RT-PCR) (Negative) 03/10/22 03/10/22 03/10/22 Range/Units 17:04 19:03 19:03 WBC (4.8-10.8) X10*3/uL RBC (4.20-5.50) X10*6/uL Hgb (12.0-16.0) g/dl Hct (37.0-47.0) % MCV (80.0-98.0) fL MCH (27.0-33.0) pg MCHC (31.0-35.0) g/dl RDW (11.0-16.0) % Plt Count (160-400) X10*3/uL MPV (9.4-12.3) fL Immature Gran % (Auto) (0.0-0.4) % Neut % (Auto) (45-73) % Lymph % (Auto) (20-40) % [place]mort[place] % (Auto) (2-11) % Eos % (Auto) (0-4) % Baso % (Auto) (0-2) % Lymph # (Auto) (1.2-4.9) X10*3/uL [place] # (Auto) (0.1-1.2) X10*3/uL Eos # (Auto) (0.0-0.4) X10*3/uL Baso # (Auto) (0.0-0.2) X10*3/uL Abs Immat Gran (auto) (0.00-0.03) X10*3/uL Absolute Neuts (auto) (2.0-8.3) x10*3/uL Absolute Nucleated RBC (0.0-0.012) X10*3/uL Nucleated RBC % (auto) (0.0-0.2) /100WBC PT 11.4 (10.0-13.1) SEC INR 1.0 (0.9-1.1) APTT 30.9 (26.0-36.4) SEC D-Dimer High Sensitivty NG/ML VBG pH (7.32-7.43) VBG pCO2 mmHg VBG pO2 mmHg VBG HCO3 (22-26) mmol/L VBG O2 Saturation % VBG Base Excess mmol/L Sodium (135-145) mmol/L Potassium (3.3-5.1) mmol/L Chloride (96-108) mmol/L Carbon Dioxide (22-29) mmol/L Anion Gap (12-20) BUN (9-16) mg/dL Creatinine (0.5-1.4) mg/dL Estim Creat Clear Calc Estimated GFR Random Glucose (60-115) mg/dL Lactic Acid 1.5 (0.5-2.0) mmol/L Calcium (8.4-10.2) mg/dL Total Bilirubin (0.0-1.0) mg/dL AST (5-31) U/L ALT (0-31) U/L Alkaline Phosphatase (39-117) U/L Troponin I High Sens 1209.2 H* (<3.5-17.0) ng/L B-Natriuretic Peptide (<100) pg/mL Total Protein (6.5-8.0) g/dL Albumin (3.5-5.0) g/dL Influenza Type A (PCR) (Negative) Influenza Type B (PCR) (Negative) RSV RNA Qual (PCR) (Negative) SARS-CoV-2 RNA (RT-PCR) (Negative) 03/10/22 Range/Units 19:03 WBC (4.8-10.8) X10*3/uL RBC (4.20-5.50) X10*6/uL Hgb (12.0-16.0) g/dl Hct (37.0-47.0) % MCV (80.0-98.0) fL MCH (27.0-33.0) pg MCHC (31.0-35.0) g/dl RDW (11.0-16.0) % Plt Count (160-400) X10*3/uL MPV (9.4-12.3) fL Immature Gran % (Auto) (0.0-0.4) % Neut % (Auto) (45-73) % Lymph % (Auto) (20-40) % [place] % (Auto) (2-11) % Eos % (Auto) (0-4) % Baso % (Auto) (0-2) % Lymph # (Auto) (1.2-4.9) X10*3/uL [place] # (Auto) (0.1-1.2) X10*3/uL Eos # (Auto) (0.0-0.4) X10*3/uL Baso # (Auto) (0.0-0.2) X10*3/uL Abs Immat Gran (auto) (0.00-0.03) X10*3/uL Absolute Neuts (auto) (2.0-8.3) x10*3/uL Absolute Nucleated RBC (0.0-0.012) X10*3/uL Nucleated RBC % (auto) (0.0-0.2) /100WBC PT (10.0-13.1) SEC INR (0.9-1.1) APTT (26.0-36.4) SEC D-Dimer High Sensitivty 272 NG/ML VBG pH (7.32-7.43) VBG pCO2 mmHg VBG pO2 mmHg VBG HCO3 (22-26) mmol/L VBG O2 Saturation % VBG Base Excess mmol/L Sodium (135-145) mmol/L Potassium (3.3-5.1) mmol/L Chloride (96-108) mmol/L Carbon Dioxide (22-29) mmol/L Anion Gap (12-20) BUN (9-16) mg/dL Creatinine (0.5-1.4) mg/dL Estim Creat Clear Calc Estimated GFR Random Glucose (60-115) mg/dL Lactic Acid (0.5-2.0) mmol/L Calcium (8.4-10.2) mg/dL Total Bilirubin (0.0-1.0) mg/dL AST (5-31) U/L ALT (0-31) U/L Alkaline Phosphatase (39-117) U/L Troponin I High Sens (<3.5-17.0) ng/L B-Natriuretic Peptide (<100) pg/mL Total Protein (6.5-8.0) g/dL Albumin (3.5-5.0) g/dL Influenza Type A (PCR) (Negative) Influenza Type B (PCR) (Negative) RSV RNA Qual (PCR) (Negative) SARS-CoV-2 RNA (RT-PCR) (Negative) <GABRIELA Beckman - Last Filed: 03/10/22 18:38> Lab Results 03/10/22 03/10/22 03/10/22 Range/Units 13:43 15:30 15:30 WBC 12.9 H (4.8-10.8) X10*3/uL RBC 4.09 L (4.20-5.50) X10*6/uL Hgb 10.7 L (12.0-16.0) g/dl Hct 36.6 L (37.0-47.0) % MCV 89.5 (80.0-98.0) fL MCH 26.2 L (27.0-33.0) pg MCHC 29.2 L (31.0-35.0) g/dl RDW 15.6 (11.0-16.0) % Plt Count 319 (160-400) X10*3/uL MPV 9.2 L (9.4-12.3) fL Immature Gran % (Auto) 0.5 H (0.0-0.4) % Neut % (Auto) 83.6 H (45-73) % Lymph % (Auto) 8.1 L (20-40) % [place] % (Auto) 7.6 (2-11) % Eos % (Auto) 0.0 (0-4) % Baso % (Auto) 0.2 (0-2) % Lymph # (Auto) 1.0 L (1.2-4.9) X10*3/uL [place] # (Auto) 1.0 (0.1-1.2) X10*3/uL Eos # (Auto) 0.0 (0.0-0.4) X10*3/uL Baso # (Auto) 0.0 (0.0-0.2) X10*3/uL Abs Immat Gran (auto) 0.07 H (0.00-0.03) X10*3/uL Absolute Neuts (auto) 10.8 H (2.0-8.3) x10*3/uL Absolute Nucleated RBC 0.000 (0.0-0.012) X10*3/uL Nucleated RBC % (auto) 0.0 (0.0-0.2) /100WBC PT (10.0-13.1) SEC INR (0.9-1.1) APTT (26.0-36.4) SEC D-Dimer High Sensitivty NG/ML VBG pH (7.32-7.43) VBG pCO2 mmHg VBG pO2 mmHg VBG HCO3 (22-26) mmol/L VBG O2 Saturation % VBG Base Excess mmol/L Sodium 139 (135-145) mmol/L Potassium 4.9 (3.3-5.1) mmol/L Chloride 100 (96-108) mmol/L Carbon Dioxide 25 (22-29) mmol/L Anion Gap 19 (12-20) BUN 23 H (9-16) mg/dL Creatinine 1.03 (0.5-1.4) mg/dL Estim Creat Clear Calc 44.6 Estimated GFR 54 Random Glucose 134 H (60-115) mg/dL Lactic Acid (0.5-2.0) mmol/L Calcium 9.5 (8.4-10.2) mg/dL Total Bilirubin 0.2 (0.0-1.0) mg/dL AST 58 H (5-31) U/L ALT 38 H (0-31) U/L Alkaline Phosphatase 96 (39-117) U/L Troponin I High Sens (<3.5-17.0) ng/L B-Natriuretic Peptide (<100) pg/mL Total Protein 6.7 (6.5-8.0) g/dL Albumin 3.7 (3.5-5.0) g/dL Influenza Type A (PCR) NEGATIVE (Negative) Influenza Type B (PCR) NEGATIVE (Negative) RSV RNA Qual (PCR) NEGATIVE (Negative) SARS-CoV-2 RNA (RT-PCR) NEGATIVE (Negative) 03/10/22 03/10/22 03/10/22 Range/Units 15:30 15:32 17:04 WBC (4.8-10.8) X10*3/uL RBC (4.20-5.50) X10*6/uL Hgb (12.0-16.0) g/dl Hct (37.0-47.0) % MCV (80.0-98.0) fL MCH (27.0-33.0) pg MCHC (31.0-35.0) g/dl RDW (11.0-16.0) % Plt Count (160-400) X10*3/uL MPV (9.4-12.3) fL Immature Gran % (Auto) (0.0-0.4) % Neut % (Auto) (45-73) % Lymph % (Auto) (20-40) % [place] % (Auto) (2-11) % Eos % (Auto) (0-4) % Baso % (Auto) (0-2) % Lymph # (Auto) (1.2-4.9) X10*3/uL [place] # (Auto) (0.1-1.2) X10*3/uL Eos # (Auto) (0.0-0.4) X10*3/uL Baso # (Auto) (0.0-0.2) X10*3/uL Abs Immat Gran (auto) (0.00-0.03) X10*3/uL Absolute Neuts (auto) (2.0-8.3) x10*3/uL Absolute Nucleated RBC (0.0-0.012) X10*3/uL Nucleated RBC % (auto) (0.0-0.2) /100WBC PT (10.0-13.1) SEC INR (0.9-1.1) APTT (26.0-36.4) SEC D-Dimer High Sensitivty NG/ML VBG pH 7.50 H (7.32-7.43) VBG pCO2 44 mmHg VBG pO2 169 mmHg VBG HCO3 35 H (22-26) mmol/L VBG O2 Saturation 99.0 % VBG Base Excess 11.0 mmol/L Sodium (135-145) mmol/L Potassium (3.3-5.1) mmol/L Chloride (96-108) mmol/L Carbon Dioxide (22-29) mmol/L Anion Gap (12-20) BUN (9-16) mg/dL Creatinine (0.5-1.4) mg/dL Estim Creat Clear Calc Estimated GFR Random Glucose (60-115) mg/dL Lactic Acid (0.5-2.0) mmol/L Calcium (8.4-10.2) mg/dL Total Bilirubin (0.0-1.0) mg/dL AST (5-31) U/L ALT (0-31) U/L Alkaline Phosphatase (39-117) U/L Troponin I High Sens 1063.6 H* D (<3.5-17.0) ng/L B-Natriuretic Peptide 465 H (<100) pg/mL Total Protein (6.5-8.0) g/dL Albumin (3.5-5.0) g/dL Influenza Type A (PCR) (Negative) Influenza Type B (PCR) (Negative) RSV RNA Qual (PCR) (Negative) SARS-CoV-2 RNA (RT-PCR) (Negative) 03/10/22 03/10/22 03/10/22 Range/Units 17:04 19:03 19:03 WBC (4.8-10.8) X10*3/uL RBC (4.20-5.50) X10*6/uL Hgb (12.0-16.0) g/dl Hct (37.0-47.0) % MCV (80.0-98.0) fL MCH (27.0-33.0) pg MCHC (31.0-35.0) g/dl RDW (11.0-16.0) % Plt Count (160-400) X10*3/uL MPV (9.4-12.3) fL Immature Gran % (Auto) (0.0-0.4) % Neut % (Auto) (45-73) % Lymph % (Auto) (20-40) % [place] % (Auto) (2-11) % Eos % (Auto) (0-4) % Baso % (Auto) (0-2) % Lymph # (Auto) (1.2-4.9) X10*3/uL [place] # (Auto) (0.1-1.2) X10*3/uL Eos # (Auto) (0.0-0.4) X10*3/uL Baso # (Auto) (0.0-0.2) X10*3/uL Abs Immat Gran (auto) (0.00-0.03) X10*3/uL Absolute Neuts (auto) (2.0-8.3) x10*3/uL Absolute Nucleated RBC (0.0-0.012) X10*3/uL Nucleated RBC % (auto) (0.0-0.2) /100WBC PT 11.4 (10.0-13.1) SEC INR 1.0 (0.9-1.1) APTT 30.9 (26.0-36.4) SEC D-Dimer High Sensitivty NG/ML VBG pH (7.32-7.43) VBG pCO2 mmHg VBG pO2 mmHg VBG HCO3 (22-26) mmol/L VBG O2 Saturation % VBG Base Excess mmol/L Sodium (135-145) mmol/L Potassium (3.3-5.1) mmol/L Chloride (96-108) mmol/L Carbon Dioxide (22-29) mmol/L Anion Gap (12-20) BUN (9-16) mg/dL Creatinine (0.5-1.4) mg/dL Estim Creat Clear Calc Estimated GFR Random Glucose (60-115) mg/dL Lactic Acid 1.5 (0.5-2.0) mmol/L Calcium (8.4-10.2) mg/dL Total Bilirubin (0.0-1.0) mg/dL AST (5-31) U/L ALT (0-31) U/L Alkaline Phosphatase (39-117) U/L Troponin I High Sens 1209.2 H* (<3.5-17.0) ng/L B-Natriuretic Peptide (<100) pg/mL Total Protein (6.5-8.0) g/dL Albumin (3.5-5.0) g/dL Influenza Type A (PCR) (Negative) Influenza Type B (PCR) (Negative) RSV RNA Qual (PCR) (Negative) SARS-CoV-2 RNA (RT-PCR) (Negative) 03/10/22 Range/Units 19:03 WBC (4.8-10.8) X10*3/uL RBC (4.20-5.50) X10*6/uL Hgb (12.0-16.0) g/dl Hct (37.0-47.0) % MCV (80.0-98.0) fL MCH (27.0-33.0) pg MCHC (31.0-35.0) g/dl RDW (11.0-16.0) % Plt Count (160-400) X10*3/uL MPV (9.4-12.3) fL Immature Gran % (Auto) (0.0-0.4) % Neut % (Auto) (45-73) % Lymph % (Auto) (20-40) % [place] % (Auto) (2-11) % Eos % (Auto) (0-4) % Baso % (Auto) (0-2) % Lymph # (Auto) (1.2-4.9) X10*3/uL [place] # (Auto) (0.1-1.2) X10*3/uL Eos # (Auto) (0.0-0.4) X10*3/uL Baso # (Auto) (0.0-0.2) X10*3/uL Abs Immat Gran (auto) (0.00-0.03) X10*3/uL Absolute Neuts (auto) (2.0-8.3) x10*3/uL Absolute Nucleated RBC (0.0-0.012) X10*3/uL Nucleated RBC % (auto) (0.0-0.2) /100WBC PT (10.0-13.1) SEC INR (0.9-1.1) APTT (26.0-36.4) SEC D-Dimer High Sensitivty 272 NG/ML VBG pH (7.32-7.43) VBG pCO2 mmHg VBG pO2 mmHg VBG HCO3 (22-26) mmol/L VBG O2 Saturation % VBG Base Excess mmol/L Sodium (135-145) mmol/L Potassium (3.3-5.1) mmol/L Chloride (96-108) mmol/L Carbon Dioxide (22-29) mmol/L Anion Gap (12-20) BUN (9-16) mg/dL Creatinine (0.5-1.4) mg/dL Estim Creat Clear Calc Estimated GFR Random Glucose (60-115) mg/dL Lactic Acid (0.5-2.0) mmol/L Calcium (8.4-10.2) mg/dL Total Bilirubin (0.0-1.0) mg/dL AST (5-31) U/L ALT (0-31) U/L Alkaline Phosphatase (39-117) U/L Troponin I High Sens (<3.5-17.0) ng/L B-Natriuretic Peptide (<100) pg/mL Total Protein (6.5-8.0) g/dL Albumin (3.5-5.0) g/dL Influenza Type A (PCR) (Negative) Influenza Type B (PCR) (Negative) RSV RNA Qual (PCR) (Negative) SARS-CoV-2 RNA (RT-PCR) (Negative) <Becky Caldera MD - Last Filed: 03/10/22 20:42> Independent Interpretation I performed an independent interpretation of an: EKG <GABRIELA Beckman - Last Filed: 03/10/22 18:38> Interpretation: Vent. Rate: 097 BPM ? ? Atrial Rate: 097 BPM P-R Int: 142 ms? QRS Dur: 088 ms QT Int: 344 ms ? ? ? P-R-T Axes: 075 059 073 degrees QTc Int: 436 ms ? Sinus rhythm with Premature ventricular complexes or Fusion complexes Nonspecific ST abnormality Abnormal ECG When compared with ECG of 01-MAR-2022 19:54, Fusion complexes are now Present Premature ventricular complexes are now Present DD/ [id number] Vent. Rate: 090 BPM ? ? Atrial Rate: 090 BPM ?P-R Int: 146 ms? QRS Dur: 086 ms ?QT Int: 360 ms ? ? ? P-R-T Axes: 064 037 056 degrees ?QTc Int: 440 ms ? Normal sinus rhythm Normal ECG When compared with ECG of 10-MAR-2022 12:32, Fusion complexes are no longer Present Premature ventricular complexes are no longer Present DD/ [id number] <GABRIELA Beckman - Last Filed: 03/10/22 18:38> Radiology Impression Radiologist Impression: My interpretation is in agreement with the radiologist's impression of this imaging study. EXAMINATION: XR CHEST CLINICAL INFORMATION: Shortness of breath COMPARISON: Chest radiograph 03/01/2022, CT angiogram chest 12/22/2021 TECHNIQUE: Frontal view of the chest was obtained. FINDINGS: Heart size within normal limits. No evidence of CHF. Evidence of COPD with apical lucency seen, much better characterized on the CT scan. Linear atelectasis right midlung. Some improvement of previously seen atelectasis at the left lung base with some minimal residual abnormality. No consolidations, effusions or lung masses. XR/XR chest 1V IMPRESSION: COPD. No acute intrathoracic disease. Dictated By: Pedro Fajardo MD Signed By: Electronically signed by Pedro Fajardo MD 03/10/22 1413 <GABRIELA Beckman - Last Filed: 03/10/22 18:38> Independent Historian Clinical information obtained from an independent historian. History obtained from or confirmed by: EMS <GABRIELA Beckman Last Filed: 03/10/22 18:38> Critical Care Time Critical Care Time Critical Care Time: Yes <GABRIELA Beckman Last Filed: 03/10/22 18:38> Total Critical Care Time: 45 <GABRIELA Beckman Last Filed: 03/10/22 18:38> Attestation: I spent 45 minutes of Critical Care Time with this patient. This does not include time spent on separately reported billable procedures. <GABRIELA Beckman Last Filed: 03/10/22 18:38> Discharge Plan Discharge Clinical Impression: Shortness of breath, Chest pain, Non-ST elevation VA (NSTEMI) <GABRIELA Beckman Last Filed: 03/10/22 18:38> Patient Disposition: Admitted As Inpatient <GABRIELA Beckman Last Filed: 03/10/22 18:38> Prescriptions: No Action albuterol sulfate 2.5 mg /3 mL (0.083 %) solution for nebulization 1 vial inhalation Q6H Rx Instructions: TAKE WITH IPROTROPIUM BROMIDE 0.02% qalbdaqqnr-cjucoumoiurgo-iwmz 50-325-40 mg tablet 2 tab PO Q12H PRN (Reason: Migraine Headache) Rx Instructions: not to exceed 6 tabs/24 hours ipratropium bromide 0.02 % solution 2.5 ml inhalation Q6H Rx Instructions: TAKE WITH ALBUTEROL 0.083% diltiazem HCl 360 mg capsule,extended release 24 hr 1 cap PO DAILY lorazepam 2 mg tablet 1 tab PO Q6H PRN (Reason: anxiety) fluticasone propion-salmeterol [Wixela Inhub] 250-50 mcg/dose blister with device 1 puff inhalation BID PRN (Reason: severe sob) <GABRIELA Beckman - Last Filed: 03/10/22 18:38>
[2022-03-10 14:30] LABS: Influenza A PCR NEGATIVE (Negative); Influenza B PCR NEGATIVE (Negative); Resp Syncy Virus RNA Qual PCR NEGATIVE (Negative); SARS COV2 PCR INHOUSE NEGATIVE (Negative)
[2022-03-10 15:35] LABS: MANUAL DIFF FLAG NO
[2022-03-10 15:36] LABS: Basophils Percent Auto 0.2 % (0-2); Hematocrit 36.6 % (37.0-47.0); Hemoglobin 10.7 g/dl (12.0-16.0); Imm Gran Abs Auto 0.07 X10*3/uL (0.00-0.03); Imm Gran Pct Auto 0.5 % (0.0-0.4); Lymphocytes Percent Auto 8.1 % (20-40); Mean Corpuscular HGB Conc 29.2 g/dl (31.0-35.0); Mean Corpuscular Hemoglobin 26.2 pg (27.0-33.0); Mean Corpuscular Volume 89.5 fL (80.0-98.0); Mean Platelet Volume 9.2 fL (9.4-12.3); Monocytes Percent Auto 7.6 % (2-11); Neutrophils Absolute Auto 10.8 x10*3/uL (2.0-8.3); Neutrophils Percent Auto 83.6 % (45-73); Platelet Count 319 X10*3/uL (160-400); Red Blood Count 4.09 X10*6/uL (4.20-5.50); Red Cell Distribution Width 15.6 % (11.0-16.0); White Blood Count 12.9 X10*3/uL (4.8-10.8)
[2022-03-10 15:38] LABS: Venous Blood Gas Refer to POC result
[2022-03-10 15:39] LABS: VBG HCO3 35 mmol/L (22-26); VBG pCO2 44 mmHg; VBG pO2 169 mmHg
[2022-03-10 16:06] LABS: Alanine Aminotransferase 38 U/L (0-31); Albumin Level 3.7 g/dL (3.5-5.0); Alkaline Phosphatase 96 U/L (39-117); Anion Gap 19 (12-20); Aspartate Amino Transferase 58 U/L (5-31); Bilirubin Total 0.2 mg/dL (0.0-1.0); Blood Urea Nitrogen 23 mg/dL (9-16); Calcium 9.5 mg/dL (8.4-10.2); Carbon Dioxide 25 mmol/L (22-29); Chloride 100 mmol/L (96-108); Creatinine Clr Calc Pharmacy 44.6; Estimated Glomerular Filt Rate 54; Glucose Random 134 mg/dL (60-115); Potassium 4.9 mmol/L (3.3-5.1); Sodium 139 mmol/L (135-145); Total Protein 6.7 g/dL (6.5-8.0)
[2022-03-10 16:29] LABS: B Type Natriuretic Peptide 465 pg/mL (<100)
[2022-03-10 17:26] LABS: Lactic Acid 1.5 mmol/L (0.5-2.0)
[2022-03-10] MEDS: cefTRIAXone sodium 2 GM in 0.9 % Sodium Chloride 50 ML IV (17:33)
--- NOTE | 2022-03-10 17:37 | PC.NURSE ---
pt resting on stretcher at this time, reports right shoulder pain at this time. no SOB, satting 100% on 2L NC. Abx started per MAR
[2022-03-10 17:42] LABS: Troponin-I High Sensitivity 1063.6 ng/L (<3.5-17.0)
--- NOTE | 2022-03-10 17:52 | ECG_ITS ---
Test Reason : CHEST PAIN Blood Pressure : / mmHG Vent. Rate : 090 BPM Atrial Rate : 090 BPM P-R Int : 146 ms QRS Dur : 086 ms QT Int : 360 ms P-R-T Axes : 064 037 056 degrees QTc Int : 440 ms Normal sinus rhythm Normal ECG When compared with ECG of 10-MAR-2022 12:32, Fusion complexes are no longer Present Premature ventricular complexes are no longer Present Referred By: April Paredes Electronically Signed By:Jose Petersen
--- NOTE | 2022-03-10 18:21 | PC.NURSE ---
Pt resting on stretcher, reports pain in left shoulder. Pt has been weighed accurately for heparin drip
--- NOTE | 2022-03-10 19:02 | PHA.MEDREC ---
Pharmacy Consult ? Medication Reconciliation Pharmacy has completed the medication reconciliation.
[2022-03-10] MEDS: Heparin Sodium,Porcine 5,000 UNIT/ML VIAL 3700 UNIT IVPUSH (19:11)
[2022-03-10 19:15] LABS: Prothrombin Time 11.4 SEC (10.0-13.1)
[2022-03-10 19:17] LABS: D Dimer High Sensitivity 272 NG/ML
[2022-03-10 19:18] LABS: Partial Thromboplastin Time 30.9 SEC (26.0-36.4)
[2022-03-10] MEDS: Heparin Sodium,Porcine/1/2NS 25,000 UNIT/250 ML IV.SOLN 7.18 UNIT IVCONT (19:20)
[2022-03-10 19:47] LABS: Troponin-I High Sensitivity 1209.2 ng/L (<3.5-17.0)
--- NOTE | 2022-03-10 20:46 | PM.IMHP ---
History of Present Illness Date of Service: 03/10/22 Chief Complaint: Chest Pain This is a 66-year-old female with pertinent history of chronic hypoxic respiratory failure due to COPD on baseline 5 L supplemental oxygen, mood disorder, essential hypertension who presents to the emergency department for evaluation of chest discomfort. Patient states she has been having 3 days of substernal chest pain, worse with exertion and relieved with rest. Also has been having intermittent right arm pain. Endorses dizziness but denies sweating, nausea, vomiting, fever, chills, palpitations, shortness of breath, wheezing, abdominal pain, changes in urinary or bowel habits. No similar complaints in the past. In the emergency department, troponin was found to be significantly elevated Review of Systems Constitutional: Constitutional: Reports no additional constitutional complaints Cardiovascular: Cardiovascular: Reports chest pain Respiratory: Respiratory: Reports no additional respiratory complaints Gastrointestinal: Gastrointestinal: Reports no additional gastrointestinal complaints Genitourinary: Genitourinary: Reports no additional female genitourinary complaints [facility] Medical History Acute and chronic respiratory failure with hypoxia Anxiety Asthma Bronchitis Chronic obstructive pulmonary disease with hypoxia Chronic respiratory failure COPD (chronic obstructive pulmonary disease) Diverticulitis Dizziness Emphysema lung Hypertension Otitis media Pulmonary abscess Vertigo Family History Other No family history of coronary artery disease Surgical History History of breast surgery History of laparotomy Social History Household Members: Spouse Housing: Other Housing Other:: Hotel Do you presently have visiting nurse or other home services: No Alcohol intake: never Patient Tobacco Use Status: Former Tobacco user Tobacco use type: Cigarette Substance Use Type: Marijuana Advance Directives: Yes Advance Directives on File: Yes Advance Directives Date on File: 07/09/21 Nutrition Risks: No Nutritional Risk service: No Current occupational status: disabled Meds Allergies Allergy/AdvReac Type Severity Reaction Status Date / Time morphine [MORPHINE] Allergy Severe HIVES, Verified 03/10/22 12:38 high temp, nausea tramadol [TRAMADOL] Allergy Severe SWEATING, Verified 03/10/22 12:38 VOMITING, vomiting Sulfa (Sulfonamide Allergy Unknown Verified 03/10/22 12:38 Antibiotics) amoxicillin [From AUGMENTIN] AdvReac Severe CONSTIPATIO Verified 03/10/22 12:38 N clavulanic acid AdvReac Severe CONSTIPATIO Verified 03/10/22 12:38 [From AUGMENTIN] N codeine [CODEINE] AdvReac Severe NAUSEA Verified 03/10/22 12:38 levofloxacin [From LEVAQUIN] AdvReac Severe CONSTIPATIO Verified 03/10/22 12:38 N Sulfa(Sulfonamide Allergy Unknown Unknown Uncoded 03/10/22 12:38 Antibiotics) Active Medications: Current Medications Acetaminophen (Acetaminophen 325 Mg Tablet) 650 mg PO Q6H PRN PRN Reason: Pain, Mild (Pain Scale 1-3) Aspirin (Aspirin 81 Mg Tab.Chew) 324 mg PO ONCE ONE Stop: 03/10/22 20:42 Heparin Sodium (Porcine) (Heparin Sodium,Porcine 5,000 Unit/Ml Vial) 2,400 unit 40 unit/kg (2400 unit) IVPUSH PROTOCOL BOLUS PRN; Protocol PRN Reason: 40 unit/kg - Heparin Protocol Heparin Sodium (Porcine) (Heparin Sodium,Porcine 5,000 Unit/Ml Vial) 4,800 unit 80 unit/kg (4800 unit) IVPUSH PROTOCOL BOLUS PRN; Protocol PRN Reason: 80 unit/kg - Heparin Protocol Heparin Sodium/Sodium Chloride (Heparin Sodium,Porcine/1/2ns) 25,000 unit in 250 mls @ 0 mls/hr IVCONT .Q0M [facility]; Protocol Last Admin: 03/10/22 19:20 Dose: 12 units/kg/hr, 7.18 mls/hr Melatonin (Melatonin 3 Mg Tablet) 6 mg PO BEDTIME PRN PRN Reason: Insomnia Nitroglycerin (Nitroglycerin 0.4 Mg Tab.Subl) 0.4 mg SUBLINGUAL Q5MX3 PRN PRN Reason: Chest Pain Ondansetron HCl (Ondansetron Hcl 4 Mg/2 Ml Vial) 4 mg IVPUSH Q8H PRN PRN Reason: Nausea and Vomiting Pharmacy Consult (Consult Rx Perform Med Rec) 1 each MISCELLANE ONCE PRN PRN Reason: Consult order Sodium Chloride (0.9 % Sodium Chloride Flush 3 Ml Syringe) [facility] Medications Medication Instructions Recorded Confirmed Last Taken Type albuterol sulfate 2.5 mg/3 mL 1 vial inhalation Q6H 10/04/20 03/10/22 01/21/22 History (0.083 %) solution for nebulization wyobdrhxas-effoxvmycakzd-feyzhkcx 2 tab PO Q12H PRN Migraine Headache 10/04/20 03/10/22 01/21/22 History 50 mg-325 mg-40 mg tablet diltiazem HCl 360 mg capsule,24 1 cap PO DAILY 07/08/21 03/10/22 01/21/22 History hr,extended release lorazepam 2 mg tablet 1 tab PO Q6H PRN anxiety 07/08/21 03/10/22 01/21/22 History ipratropium bromide 0.02 % 2.5 ml inhalation Q6H 09/25/21 03/10/22 01/21/22 History solution for inhalation fluticasone 250 mcg-salmeterol 50 1 puff inhalation BID PRN severe 03/02/22 03/10/22 Unknown History mcg/dose blistr powdr for sob inhalation (Romina Glass) Physical Exam Vital Signs and Narrative: Vital Signs: Last Vital Signs Temp 98.5 F 03/10/22 20:27 Pulse 93 03/10/22 20:27 Resp 22 H 03/10/22 20:27 BP 116/47 L 03/10/22 20:27 Pulse Ox 100 03/10/22 20:27 O2 Del Method 03/10/22 20:27 O2 Flow Rate 6 03/10/22 20:27 Oxygen Flow Rate 6 03/10/22 14:50 BMI result Body Mass Index 25.7 Middle-aged female lying in bed in mild distress on 5 L supplemental oxygen Neck supple, no JVD Regular rate and rhythm, S1-S2 heard Regular breath sounds bilaterally, no wheezing or crackles appreciated Abdomen soft nontender, no guarding, no rigidity Patient is awake, alert and oriented to self, place, time and person ; no focal motor deficit Psych: Normal mood No pedal edema Results Labs 03/10/22 15:30 03/10/22 15:30 Labs: Laboratory Results - last 24 hr 03/10/22 03/10/22 03/10/22 13:43 15:30 15:30 MCV 89.5 MCH 26.2 L MCHC 29.2 L RDW 15.6 Plt Count 319 MPV 9.2 L Immature Gran % (Auto) 0.5 H Neut % (Auto) 83.6 H Lymph % (Auto) 8.1 L [place] % (Auto) 7.6 Eos % (Auto) 0.0 Baso % (Auto) 0.2 Lymph # (Auto) 1.0 L [place] # (Auto) 1.0 Eos # (Auto) 0.0 Baso # (Auto) 0.0 Abs Immat Gran (auto) 0.07 H Absolute Neuts (auto) 10.8 H Absolute Nucleated RBC 0.000 Nucleated RBC % (auto) 0.0 PT INR APTT D-Dimer High Sensitivty VBG pH VBG pCO2 VBG pO2 VBG HCO3 VBG O2 Saturation VBG Base Excess Anion Gap 19 Estim Creat Clear Calc 44.6 Estimated GFR 54 Random Glucose 134 H Lactic Acid Calcium 9.5 Total Bilirubin 0.2 AST 58 H ALT 38 H Alkaline Phosphatase 96 Troponin I High Sens B-Natriuretic Peptide Total Protein 6.7 Albumin 3.7 Influenza Type A (PCR) NEGATIVE Influenza Type B (PCR) NEGATIVE RSV RNA Qual (PCR) NEGATIVE SARS-CoV-2 RNA (RT-PCR) NEGATIVE 03/10/22 03/10/22 03/10/22 15:30 15:32 17:04 MCV MCH MCHC RDW Plt Count MPV Immature Gran % (Auto) Neut % (Auto) Lymph % (Auto) [place] % (Auto) Eos % (Auto) Baso % (Auto) Lymph # (Auto) [place] # (Auto) Eos # (Auto) Baso # (Auto) Abs Immat Gran (auto) Absolute Neuts (auto) Absolute Nucleated RBC Nucleated RBC % (auto) PT INR APTT D-Dimer High Sensitivty VBG pH 7.50 H VBG pCO2 44 VBG pO2 169 VBG HCO3 35 H VBG O2 Saturation 99.0 VBG Base Excess 11.0 Anion Gap Estim Creat Clear Calc Estimated GFR Random Glucose Lactic Acid Calcium Total Bilirubin AST ALT Alkaline Phosphatase Troponin I High Sens 1063.6 H* D B-Natriuretic Peptide 465 H Total Protein Albumin Influenza Type A (PCR) Influenza Type B (PCR) RSV RNA Qual (PCR) SARS-CoV-2 RNA (RT-PCR) 02/02/23 02/02/23 02/02/23 17:04 19:03 19:03 MCV MCH MCHC RDW Plt Count MPV Immature Gran % (Auto) Neut % (Auto) Lymph % (Auto) [place] % (Auto) Eos % (Auto) Baso % (Auto) Lymph # (Auto) [place] # (Auto) Eos # (Auto) Baso # (Auto) Abs Immat Gran (auto) Absolute Neuts (auto) Absolute Nucleated RBC Nucleated RBC % (auto) PT 11.4 INR 1.0 APTT 30.9 D-Dimer High Sensitivty VBG pH VBG pCO2 VBG pO2 VBG HCO3 VBG O2 Saturation VBG Base Excess Anion Gap Estim Creat Clear Calc Estimated GFR Random Glucose Lactic Acid 1.5 Calcium Total Bilirubin AST ALT Alkaline Phosphatase Troponin I High Sens 1209.2 H* B-Natriuretic Peptide Total Protein Albumin Influenza Type A (PCR) Influenza Type B (PCR) RSV RNA Qual (PCR) SARS-CoV-2 RNA (RT-PCR) 03/10/22 19:03 MCV MCH MCHC RDW Plt Count MPV Immature Gran % (Auto) Neut % (Auto) Lymph % (Auto) [place] % (Auto) Eos % (Auto) Baso % (Auto) Lymph # (Auto) [place] # (Auto) Eos # (Auto) Baso # (Auto) Abs Immat Gran (auto) Absolute Neuts (auto) Absolute Nucleated RBC Nucleated RBC % (auto) PT INR APTT D-Dimer High Sensitivty 272 VBG pH VBG pCO2 VBG pO2 VBG HCO3 VBG O2 Saturation VBG Base Excess Anion Gap Estim Creat Clear Calc Estimated GFR Random Glucose Lactic Acid Calcium Total Bilirubin AST ALT Alkaline Phosphatase Troponin I High Sens B-Natriuretic Peptide Total Protein Albumin Influenza Type A (PCR) Influenza Type B (PCR) RSV RNA Qual (PCR) SARS-CoV-2 RNA (RT-PCR) Imaging Radiologist's Impressions: Impressions Chest X-Ray 03/10/22 13:36 IMPRESSION: COPD. No acute intrathoracic disease. Assessment and Plan (1) Non-ST elevation IN (NSTEMI): Status: Acute Plan This is a 66-year-old female with pertinent history of chronic hypoxic respiratory failure due to COPD on baseline 5 L supplemental oxygen, mood disorder, essential hypertension who presents to the emergency department for evaluation of chest discomfort. #. NSTEMI: Will admit patient with cardiac exercise physiologist. Initiated on heparin drip. Ordered aspirin, statin and beta-more. Consulting Cardiology, appreciate assistance. Obtaining transthoracic echocardiogram. #. Chronic hypoxemic respiratory failure secondary to COPD: On 5 L baseline home O2. No exacerbation on admission. Continue home inhaler #. Mood disorder: On lorazepam #. Essential hypertension: On diltiazem #. Chronic normocytic anemia: Hemoglobin above transfusion threshold #. Reactive leukocytosis: UA pending DVT prophylaxis: Heparin Full code Cardiac diet Admit as inpatient and will require two night minimum hospital stay for IV heparin Time Spent With Patient Time: Total time managing care of this patient today ____ minutes. Quality Stroke Does the patient have a stroke diagnosis?: No VTE Prior VTE?: No VTE Risk Level:: Medical - moderate - high VTE Device Contraindication: Treatment Not Indicated VTE Drug Contraindication: N/A - Med Ordered
[2022-03-10] MEDS: Aspirin 81 MG TAB.CHEW 324 MG PO (21:16)
[2022-03-10] MEDS: Atorvastatin Calcium 40 MG TABLET PO (21:17)
[2022-03-10] MEDS: iohexoL 350 MG/ML 100 ML INFUS..BTL IV (22:20)
[2022-03-10] MEDS: LORazepam 1 MG TABLET 2 MG PO (22:22)
[2022-03-10] MEDS: Albuterol Sulfate (0.083%) 2.5 MG/3 ML VIAL.NEB INHALE (22:40)
[2022-03-10] MEDS: Ipratropium Bromide 0.5 MG/2.5 ML SOLUTION INHALE (22:40)
[2022-03-11] VITALS (9 sets, daily range): BP systolic 121–152; BP diastolic 56–64; PULSE 72–105; RESP 18–24; TEMP 36.2–36.8; O2SAT 90–99
--- NOTE | 2022-03-11 00:48 | PC.NURSE ---
pt sleeping at this time, awaiting bed assignment. respirations are even and unlabored, no apparent distress
--- NOTE | 2022-03-11 01:06 | PC.NURSE ---
first attempt made to call report to MITESH hood in other pts room at this time
[2022-03-11 01:28] LABS: PTT Heparin Drip 54.4 SEC (53-77.9)
--- NOTE | 2022-03-11 01:53 | PC.NURSE ---
Pt resting on stretcher, no apparent distress, heparin still running per MAR, no change necessary due to PTT being in correct range. Pt brought up to floor by this Rn and Aidan STEINER
[2022-03-11] MEDS: HYDROmorphone HCl 0.5 MG/0.5 ML SYRINGE IVPUSH ×4 (02:47→20:06)
[2022-03-11] MEDS: Albuterol Sulfate (0.083%) 2.5 MG/3 ML VIAL.NEB INHALE ×2 (03:51→07:32)
[2022-03-11] MEDS: Ipratropium Bromide 0.5 MG/2.5 ML SOLUTION INHALE ×2 (03:51→07:36)
--- NOTE | 2022-03-11 07:00 | CA_ITS ---
Transthoracic Echocardiogram Patient (Last, First, Middle): Tiffanie Ngo, Gender: Female Date of : 1955 Age: 66 Procedure Date: 03/11/2022 Procedure Type: Transthoracic Echocardiogram Location: [facility] – [place] Height: 152.4 cm Weight: 59.42 kg BSA: 1.56 m2 Heart Rate: 96 bpm BP: 138 / 64 mmHg Director Religious Education: SB Referring MD: Samantha Hoang MD Symptoms: NSTEMI Study Quality: Adequate/pt term exam ECG Rhythm: Sinus Conclusions: - Limited study. - Normal left ventricular size and systolic function. The visually estimated ejection fraction is between 65-70%. - There is no evidence of regional wall motion abnormalities. Findings Procedure Information Contrast agent, definity, is being given per protocol without apparent complications. The quality of the study was technically difficult. The study quality is limited by the patients inability to tolerate the test and an uncooperative patient. Left Ventricle Normal left ventricular size and systolic function. The visually estimated ejection fraction is between 65-70%. There is no evidence of regional wall motion abnormalities. There is mild septal asymmetric hypertrophy. Prior Study Comparison No prior study available for comparison. Measurements 2D Linear Measurements IVSd: 0.97 0.6-0.9/0.6-1.0 cm LVIDd: 4.43 3.9-5.3/4.2-5.9 cm LVIDd Index: 2.84 2.4-3.2/2.2-3.1 cm/m2 LVIDs: 2.94 2.0-3.6 cm LVPWd: 0.64 0.7-1.1 cm LV Mass: 138.63 67-162/88-224 g LV Mass Index: 88.87 43-95/49-115 g/m2 2D Systolic Function EF 4C: 69.30 >55% EF 2C: 73.90 >55% EF BiP: 72.90 >55% Updated in Other Vendor System with Status of Final Jose Petersen MD electronically signed on 03/11/2022 11:24:50 AM with status of Final
[2022-03-11] MEDS: dilTIAZem HCL CD 180 MG CAP.ER.24H 360 MG PO (07:41)
[2022-03-11] MEDS: 0.9 % Sodium Chloride Flush 3 ML SYRINGE IVFLUSH ×3 (07:43→23:53)
[2022-03-11] MEDS: LORazepam 1 MG TABLET 2 MG PO ×3 (07:43→20:06)
[2022-03-11] MEDS: Acetaminophen 325 MG TABLET 650 MG PO (07:46)
--- NOTE | 2022-03-11 07:50 | PC.NURSE ---
Addendum entered by Thi Rodrigues RN 03/11/22 18:50: Pt refusing blood draw around 1630. Pt also refused x-ray of arm/should this morning. Addendum entered by Thi Rodrigues RN 03/11/22 18:10: Pt reporting SOB around 1400 and requesting an updraft treatment; respiratory therapy call, pt refused updraft. This RN went in to see why patient refused updraft; pt stated I didn't know he was from respiratory therapy . Asked if pt wanted the updraft still and pt stated yes . Respiratory therapy called again; pt received updraft. Addendum entered by Thi Rodrigues RN 03/11/22 18:07: New order for Dilaudid placed, pt given medication at 0958, with effectiveness. Pt sleeping comfortably in bed, no complaints at this time. Original Note: Patient yelling out this morning, pt demanding pain medication that she does not have and demanding ativan. Pt offered Tylenol; pt refused. Pt stated tylenol doesn't work for me, I want dilaudid . Pt encouraged to take the Tylenol since there was no Dilaudid order in. Pt then stated give me the goddam tylenol then . Dr. Ford aware and notified pt in pain and requesting Dilaudid. Pt reporting right arm pain, denies chest pain at this time and any SOB.
[2022-03-11 07:51] LABS: MANUAL DIFF FLAG NO
[2022-03-11 07:54] LABS: Basophils Percent Auto 0.4 % (0-2); Eosinophils Absolute Auto 0.1 X10*3/uL (0.0-0.4); Eosinophils Percent Auto 0.9 % (0-4); Hematocrit 31.5 % (37.0-47.0); Hemoglobin 9.5 g/dl (12.0-16.0); Imm Gran Abs Auto 0.03 X10*3/uL (0.00-0.03); Imm Gran Pct Auto 0.3 % (0.0-0.4); Lymphocytes Absolute Auto 1.9 X10*3/uL (1.2-4.9); Lymphocytes Percent Auto 18.5 % (20-40); Mean Corpuscular HGB Conc 30.2 g/dl (31.0-35.0); Mean Corpuscular Hemoglobin 26.5 pg (27.0-33.0); Mean Platelet Volume 9.8 fL (9.4-12.3); Monocytes Absolute Auto 1.1 X10*3/uL (0.1-1.2); Monocytes Percent Auto 10.7 % (2-11); Neutrophils Percent Auto 69.2 % (45-73); Platelet Count 308 X10*3/uL (160-400); Red Blood Count 3.58 X10*6/uL (4.20-5.50); Red Cell Distribution Width 15.7 % (11.0-16.0); White Blood Count 10.1 X10*3/uL (4.8-10.8)
[2022-03-11 07:59] LABS: INTERNATIONAL NORM RATIO 0.9 (0.9-1.1); Prothrombin Time 10.5 SEC (10.0-13.1)
[2022-03-11 08:35] LABS: Anion Gap 14 (12-20); Blood Urea Nitrogen 25 mg/dL (9-16); Calcium 9.5 mg/dL (8.4-10.2); Carbon Dioxide 34 mmol/L (22-29); Chloride 94 mmol/L (96-108); Creatinine Clr Calc Pharmacy 60.4; Estimated Glomerular Filt Rate > 60; Glucose Random 110 mg/dL (60-115); Potassium 3.5 mmol/L (3.3-5.1); Sodium 138 mmol/L (135-145)
--- NOTE | 2022-03-11 09:26 | HE.PHANOTE ---
RE: heparin drip PTT due @0734, new order put in for 0821. Contacted phlebotomy and spoke to Don @[phone] who said she would reach out to someone on the floor. New order entered at 0916. PTT level now almost two hours past due.
[2022-03-11 09:46] LABS: PTT Heparin Drip 40.3 SEC (53-77.9)
[2022-03-11] MEDS: Heparin Sodium,Porcine 5,000 UNIT/ML VIAL 2400 UNIT IVPUSH (10:27)
--- NOTE | 2022-03-11 10:31 | P.CONCA_ITS ---
History of Present Illness History of Present Illness Date of Service: 03/11/22 Requesting physician: Fabrice Ford Chief complaint: Elevated troponin. Narrative: 66-year-old female who presented to the ER complaining of chest discomfort. She has background history of chronic obstructive pulmonary disease and respiratory failure and is on supplemental oxygen, mood disorder, hypertension. It appears she came and was complaining of chest discomfort but this morning she is complaining of right shoulder pain. She said she had a fall and since then has severe pain in the arm and that is why she came to the emergency department. She is denying chest pain at any stage. Denying any other issues. She has chronic obstructive pulmonary disease and has shortness of breath at baseline. She is on 5 liters/minute supplemental oxygen all the time. Currently denying any chest discomfort. EKG is not showing any dynamic changes. High sensitivity troponin levels were 1063 and 1209. BNP 465. She had a CT pulmonary angiogram yesterday to rule out pulmonary embolism which was negative. She had extensive emphysematous changes in the lungs. Moderate coronary artery calcification was noted on the CT chest. [facility] Past Medical History Medical History Acute and chronic respiratory failure with hypoxia Anxiety Asthma Bronchitis Chronic obstructive pulmonary disease with hypoxia Chronic respiratory failure COPD (chronic obstructive pulmonary disease) Diverticulitis Dizziness Emphysema lung Hypertension Otitis media Pulmonary abscess Vertigo Family History Family History Other No family history of coronary artery disease Surgical History Surgical History History of breast surgery History of laparotomy Social History Social History Household Members: Spouse Housing: Other Housing Other:: Hotel Do you presently have visiting nurse or other home services: No Alcohol intake: never Patient Tobacco Use Status: Former Tobacco user Tobacco use type: Cigarette Substance Use Type: Marijuana Advance Directives Date on File: 07/09/21 service: No Current occupational status: disabled Meds Allergies Allergy/AdvReac Type Severity Reaction Status Date / Time morphine [MORPHINE] Allergy Severe HIVES, Verified 03/10/22 12:38 high temp, nausea tramadol [TRAMADOL] Allergy Severe SWEATING, Verified 03/10/22 12:38 VOMITING, vomiting Sulfa (Sulfonamide Allergy Unknown Verified 03/10/22 12:38 Antibiotics) amoxicillin [From AUGMENTIN] AdvReac Severe CONSTIPATIO Verified 03/10/22 12:38 N clavulanic acid AdvReac Severe CONSTIPATIO Verified 03/10/22 12:38 [From AUGMENTIN] N codeine [CODEINE] AdvReac Severe NAUSEA Verified 03/10/22 12:38 levofloxacin [From LEVAQUIN] AdvReac Severe CONSTIPATIO Verified 03/10/22 12:38 N Active Medications: Current Medications Acetaminophen (Acetaminophen 325 Mg Tablet) 650 mg PO Q6H PRN PRN Reason: Pain, Mild (Pain Scale 1-3) Last Admin: 03/11/22 07:46 Dose: 650 mg Acetaminophen/Butalbital/Caffeine (Butalb/Acetamin/Caff 50/325/40 Tablet) 2 tab PO Q12H PRN PRN Reason: Migraine Headache Albuterol Sulfate (Albuterol Sulfate (0.083%) 2.5 Mg/3 Ml Vial.Neb) 2.5 mg INHALE Q6H NARCISA Last Admin: 03/11/22 07:32 Dose: 2.5 mg Albuterol/Ipratropium (Albuterol/Iprat 2.5/0.5mg 3 Ml Ampul.Neb) 3 ml INHALE Q4H PRN PRN Reason: Wheezing Atorvastatin Calcium (Atorvastatin Calcium 40 Mg Tablet) 40 mg PO BEDTIME NARCISA Last Admin: 03/10/22 22:52 Dose: Not Given Diltiazem HCl (Diltiazem Hcl Cd 180 Mg Cap.Er.24h) 360 mg PO DAILY [facility]; Protocol Last Admin: 03/11/22 07:41 Dose: 360 mg Fluticasone/Vilanterol (Fluticasone/Vilanterol 200/25 Blst.W.Dev) 1 puff INHALE DAILY [facility] Heparin Sodium (Porcine) (Heparin Sodium,Porcine 5,000 Unit/Ml Vial) 2,400 unit 40 unit/kg (2400 unit) IVPUSH PROTOCOL BOLUS PRN; Protocol PRN Reason: 40 unit/kg - Heparin Protocol Last Admin: 03/11/22 10:27 Dose: 2,400 unit Heparin Sodium (Porcine) (Heparin Sodium,Porcine 5,000 Unit/Ml Vial) 4,800 unit 80 unit/kg (4800 unit) IVPUSH PROTOCOL BOLUS PRN; Protocol PRN Reason: 80 unit/kg - Heparin Protocol Hydromorphone HCl (Hydromorphone Hcl 0.5 Mg/0.5 Ml Syringe) 0.5 mg IVPUSH Q4H PRN; Protocol PRN Reason: moderate pain Last Admin: 03/11/22 09:58 Dose: 0.5 mg Heparin Sodium/Sodium Chloride (Heparin Sodium,Porcine/1/2ns) 25,000 unit in 250 mls @ 0 mls/hr IVCONT .Q0M [facility]; Protocol Last Titration: 03/11/22 10:26 Dose: 14 units/kg/hr, 8.37 mls/hr Ipratropium Robinson (Ipratropium Robinson 0.5 Mg/2.5 Ml Solution) 0.5 mg INHALE Q6H [facility] Last Admin: 03/11/22 07:36 Dose: 0.5 mg Lorazepam (Lorazepam 1 Mg Tablet) 2 mg PO Q6H PRN PRN Reason: anxiety Last Admin: 03/11/22 07:43 Dose: 2 mg Melatonin (Melatonin 3 Mg Tablet) 6 mg PO BEDTIME PRN PRN Reason: Insomnia Nitroglycerin (Nitroglycerin 0.4 Mg Tab.Subl) 0.4 mg SUBLINGUAL Q5MX3 PRN PRN Reason: Chest Pain Ondansetron HCl (Ondansetron Hcl 4 Mg/2 Ml Vial) 4 mg IVPUSH Q8H PRN PRN Reason: Nausea and Vomiting Pharmacy Consult (Consult Rx Perform Med Rec) 1 each MISCELLANE ONCE PRN PRN Reason: Consult order Sodium Chloride (0.9 % Sodium Chloride Flush 3 Ml Syringe) [facility] Last Admin: 03/11/22 07:43 Dose: 3 ml Home Medications Medication Instructions Recorded Confirmed Last Taken Type albuterol sulfate 2.5 mg/3 mL 1 vial inhalation Q6H 10/04/20 03/10/22 01/21/22 History (0.083 %) solution for nebulization dhcskfykbh-yygknbzbtffjr-gneobpsy 2 tab PO Q12H PRN Migraine Headache 10/04/20 03/10/22 01/21/22 History 50 mg-325 mg-40 mg tablet diltiazem HCl 360 mg capsule,24 1 cap PO DAILY 07/08/21 03/10/22 01/21/22 History hr,extended release lorazepam 2 mg tablet 1 tab PO Q6H PRN anxiety 07/08/21 03/10/22 01/21/22 History ipratropium bromide 0.02 % 2.5 ml inhalation Q6H 09/25/21 03/10/22 01/21/22 History solution for inhalation fluticasone 250 mcg-salmeterol 50 1 puff inhalation BID PRN severe 03/02/22 03/10/22 Unknown History mcg/dose blistr powdr for sob inhalation (Wixela Inhub) Physical Exam Vital Signs: Vital Signs: Last Vital Signs Temp 98.2 F 03/11/22 08:00 Pulse 98 03/11/22 08:00 Resp 22 H 03/11/22 08:00 BP 135/64 03/11/22 08:00 Pulse Ox 97 03/11/22 08:00 O2 Del Method 03/11/22 08:00 O2 Flow Rate 5 03/11/22 08:00 Oxygen Flow Rate 6 03/10/22 14:50 BMI result Body Mass Index 25.7 GENERAL APPEARANCE: Distressed and crying that she has shoulder pain. Unable to move the shoulder. SKIN: no suspicious lesions, warm and dry. HEART: no murmurs, regular rate and rhythm. LUNGS: clear to auscultation bilaterally. ABDOMEN: soft, nontender. EXTREMITIES: no edema. PERIPHERAL PULSES: equal. NEUROLOGIC: No gross deficits, AAO X 3 Objective Labs and Meds 03/11/22 07:40 03/11/22 07:40 Lab results: Laboratory Results - last 24 hr 03/10/22 03/10/22 03/10/22 13:43 15:30 15:30 WBC 12.9 H RBC 4.09 L Hgb 10.7 L Hct 36.6 L MCV 89.5 MCH 26.2 L MCHC 29.2 L RDW 15.6 Plt Count 319 MPV 9.2 L Immature Gran % (Auto) 0.5 H Neut % (Auto) 83.6 H Lymph % (Auto) 8.1 L [place] % (Auto) 7.6 Eos % (Auto) 0.0 Baso % (Auto) 0.2 Lymph # (Auto) 1.0 L [place] # (Auto) 1.0 Eos # (Auto) 0.0 Baso # (Auto) 0.0 Abs Immat Gran (auto) 0.07 H Absolute Neuts (auto) 10.8 H Absolute Nucleated RBC 0.000 Nucleated RBC % (auto) 0.0 PT INR APTT aPTT Heparin Protocol D-Dimer High Sensitivty VBG pH VBG pCO2 VBG pO2 VBG HCO3 VBG O2 Saturation VBG Base Excess Sodium 139 Potassium 4.9 Chloride 100 Carbon Dioxide 25 Anion Gap 19 BUN 23 H Creatinine 1.03 Estim Creat Clear Calc 44.6 Estimated GFR 54 Random Glucose 134 H Lactic Acid Calcium 9.5 Total Bilirubin 0.2 AST 58 H ALT 38 H Alkaline Phosphatase 96 Troponin I High Sens B-Natriuretic Peptide Total Protein 6.7 Albumin 3.7 Influenza Type A (PCR) NEGATIVE Influenza Type B (PCR) NEGATIVE RSV RNA Qual (PCR) NEGATIVE SARS-CoV-2 RNA (RT-PCR) NEGATIVE 03/10/22 03/10/22 03/10/22 15:30 15:32 17:04 WBC RBC Hgb Hct MCV MCH MCHC RDW Plt Count MPV Immature Gran % (Auto) Neut % (Auto) Lymph % (Auto) [place] % (Auto) Eos % (Auto) Baso % (Auto) Lymph # (Auto) [place] # (Auto) Eos # (Auto) Baso # (Auto) Abs Immat Gran (auto) Absolute Neuts (auto) Absolute Nucleated RBC Nucleated RBC % (auto) PT INR APTT aPTT Heparin Protocol D-Dimer High Sensitivty VBG pH 7.50 H VBG pCO2 44 VBG pO2 169 VBG HCO3 35 H VBG O2 Saturation 99.0 VBG Base Excess 11.0 Sodium Potassium Chloride Carbon Dioxide Anion Gap BUN Creatinine Estim Creat Clear Calc Estimated GFR Random Glucose Lactic Acid Calcium Total Bilirubin AST ALT Alkaline Phosphatase Troponin I High Sens 1063.6 H* D B-Natriuretic Peptide 465 H Total Protein Albumin Influenza Type A (PCR) Influenza Type B (PCR) RSV RNA Qual (PCR) SARS-CoV-2 RNA (RT-PCR) 03/10/22 03/10/22 03/10/22 17:04 19:03 19:03 WBC RBC Hgb Hct MCV MCH MCHC RDW Plt Count MPV Immature Gran % (Auto) Neut % (Auto) Lymph % (Auto) [place] % (Auto) Eos % (Auto) Baso % (Auto) Lymph # (Auto) [place] # (Auto) Eos # (Auto) Baso # (Auto) Abs Immat Gran (auto) Absolute Neuts (auto) Absolute Nucleated RBC Nucleated RBC % (auto) PT 11.4 INR 1.0 APTT 30.9 aPTT Heparin Protocol D-Dimer High Sensitivty VBG pH VBG pCO2 VBG pO2 VBG HCO3 VBG O2 Saturation VBG Base Excess Sodium Potassium Chloride Carbon Dioxide Anion Gap BUN Creatinine Estim Creat Clear Calc Estimated GFR Random Glucose Lactic Acid 1.5 Calcium Total Bilirubin AST ALT Alkaline Phosphatase Troponin I High Sens 1209.2 H* B-Natriuretic Peptide Total Protein Albumin Influenza Type A (PCR) Influenza Type B (PCR) RSV RNA Qual (PCR) SARS-CoV-2 RNA (RT-PCR) 03/10/22 03/11/22 03/11/22 19:03 01:12 07:40 WBC RBC Hgb Hct MCV MCH MCHC RDW Plt Count MPV Immature Gran % (Auto) Neut % (Auto) Lymph % (Auto) [place] % (Auto) Eos % (Auto) Baso % (Auto) Lymph # (Auto) [place] # (Auto) Eos # (Auto) Baso # (Auto) Abs Immat Gran (auto) Absolute Neuts (auto) Absolute Nucleated RBC Nucleated RBC % (auto) PT 10.5 INR 0.9 APTT aPTT Heparin Protocol 54.4 D-Dimer High Sensitivty 272 VBG pH VBG pCO2 VBG pO2 VBG HCO3 VBG O2 Saturation VBG Base Excess Sodium Potassium Chloride Carbon Dioxide Anion Gap BUN Creatinine Estim Creat Clear Calc Estimated GFR Random Glucose Lactic Acid Calcium Total Bilirubin AST ALT Alkaline Phosphatase Troponin I High Sens B-Natriuretic Peptide Total Protein Albumin Influenza Type A (PCR) Influenza Type B (PCR) RSV RNA Qual (PCR) SARS-CoV-2 RNA (RT-PCR) 03/11/22 03/11/22 03/11/22 07:40 07:40 09:18 WBC 10.1 RBC 3.58 L Hgb 9.5 L Hct 31.5 L MCV 88.0 MCH 26.5 L MCHC 30.2 L RDW 15.7 Plt Count 308 MPV 9.8 Immature Gran % (Auto) 0.3 Neut % (Auto) 69.2 Lymph % (Auto) 18.5 L [place] % (Auto) 10.7 Eos % (Auto) 0.9 Baso % (Auto) 0.4 Lymph # (Auto) 1.9 [place] # (Auto) 1.1 Eos # (Auto) 0.1 Baso # (Auto) 0.0 Abs Immat Gran (auto) 0.03 Absolute Neuts (auto) 7.0 Absolute Nucleated RBC 0.000 Nucleated RBC % (auto) 0.0 PT INR APTT aPTT Heparin Protocol 40.3 L D D-Dimer High Sensitivty VBG pH VBG pCO2 VBG pO2 VBG HCO3 VBG O2 Saturation VBG Base Excess Sodium 138 Potassium 3.5 D Chloride 94 L Carbon Dioxide 34 H Anion Gap 14 BUN 25 H Creatinine 0.75 Estim Creat Clear Calc 60.4 Estimated GFR > 60 Random Glucose 110 Lactic Acid Calcium 9.5 Total Bilirubin AST ALT Alkaline Phosphatase Troponin I High Sens B-Natriuretic Peptide Total Protein Albumin Influenza Type A (PCR) Influenza Type B (PCR) RSV RNA Qual (PCR) SARS-CoV-2 RNA (RT-PCR) Imaging Radiologist's impression: Impressions Chest X-Ray 03/10/22 13:36 IMPRESSION: COPD. No acute intrathoracic disease. Chest CTA 03/10/22 22:35 IMPRESSION: 1. No evidence of pulmonary embolism. 2. Marked emphysematous change of lungs. No acute airspace disease. VTE: negative Assessment and Plan (1) Elevated troponin: Status: Acute Plan 66-year-old female with advanced COPD presenting for right shoulder injury. At some stage she also complained of chest pain but is denying any chest discomfort whatsoever and only complaint is right shoulder pain. High sensitivity troponin levels are elevated. EKG has no changes. PE has been ruled out. Please check a CPK to make sure she did not have rhabdomyolysis due to muscle injury and that is why troponins elevated. We will do echocardiogram to assess for any wall motion abnormalities. If echo is normal my inclination is stop the heparin drip. As she improves we can consider ischemic evaluation with stress tests. Recommend baby aspirin for now. Thank you for allowing me to participate in the care of your patient. Please feel free to contact me if you have any questions. Time Spent With Patient Time: Total time managing care of this patient today ____ minutes. Procedures Date of Service Date of Service: 03/11/22
--- NOTE | 2022-03-11 10:58 | MHC.CM.PN ---
CM met with Patient at bedside and addressed IMM with her, providing her with the original and placing a copy on the chart. [facility] [address] [facility] in [place] and her O2 is supplied by [employer]. Home/resume home O2 is the goal and CM has initiated and will follow for dc planning. Patient has received Moderna/Coivid vax x1 and her PCP is Dr. Mickey Guaman.
--- NOTE | 2022-03-11 12:14 | P.PNIM_ITS ---
Subjective Subjective Date of Service: 03/11/22 Interval History: cc: sob interval history:right arm pain Physical Exam Vital Signs: Vital Signs: Last Vital Signs Temp 97.5 F 03/11/22 11:49 Pulse 92 03/11/22 11:49 Resp 20 03/11/22 11:49 BP 129/60 03/11/22 11:49 Pulse Ox 98 03/11/22 11:49 O2 Del Method 03/11/22 11:49 O2 Flow Rate 6 03/11/22 11:49 Oxygen Flow Rate 6 03/10/22 14:50 BMI result Body Mass Index 25.7 General: AO X 3, no acute distress Resp: CTA bilateral, no accessory muscles used CVS: S1,S2,RRR GI: soft, non tender, non distended Neuro: motor grossly intact, alert Psych: appropriate affect, appropriate insight Objective Data Active Medications Acetaminophen (Acetaminophen 325 Mg Tablet) 650 mg PO Q6H PRN PRN Reason: Pain, Mild (Pain Scale 1-3) Last Admin: 03/11/22 07:46 Dose: 650 mg Documented By: JESI Acetaminophen/Butalbital/Caffeine (Butalb/Acetamin/Caff 50/325/40 Tablet) 2 tab PO Q12H PRN PRN Reason: Migraine Headache Albuterol Sulfate (Albuterol Sulfate (0.083%) 2.5 Mg/3 Ml Vial.Neb) 2.5 mg INHALE Q6H [facility] Last Admin: 03/11/22 07:32 Dose: 2.5 mg Documented By: PROSPER Albuterol/Ipratropium (Albuterol/Iprat 2.5/0.5mg 3 Ml Ampul.Neb) 3 ml INHALE Q4H PRN PRN Reason: Wheezing Atorvastatin Calcium (Atorvastatin Calcium 40 Mg Tablet) 40 mg PO BEDTIME [facility] Last Admin: 03/10/22 22:52 Dose: Not Given Documented By: JANY Non-Admin Reason: Duplicate Order Diltiazem HCl (Diltiazem Hcl Cd 180 Mg Cap.Er.24h) 360 mg PO DAILY [facility]; Protocol Last Admin: 03/11/22 07:41 Dose: 360 mg Documented By: JESI Enoxaparin Sodium (Enoxaparin Sodium 40 Mg/0.4 Ml Syringe) 40 mg SUBCUT Q24H [facility] Fluticasone/Vilanterol (Fluticasone/Vilanterol 200/25 Blst.W.Dev) 1 puff INHALE DAILY [facility] Hydromorphone HCl (Hydromorphone Hcl 0.5 Mg/0.5 Ml Syringe) 0.5 mg IVPUSH Q4H PRN; Protocol PRN Reason: moderate pain Last Admin: 03/11/22 09:58 Dose: 0.5 mg Documented By: JESI Ipratropium [place] (Ipratropium [place] 0.5 Mg/2.5 Ml Solution) 0.5 mg INHALE Q6H [facility] Last Admin: 03/11/22 07:36 Dose: 0.5 mg Documented By: PROSPER Lorazepam (Lorazepam 1 Mg Tablet) 2 mg PO Q6H PRN PRN Reason: anxiety Last Admin: 03/11/22 07:43 Dose: 2 mg Documented By: JESI Melatonin (Melatonin 3 Mg Tablet) 6 mg PO BEDTIME PRN PRN Reason: Insomnia Nitroglycerin (Nitroglycerin 0.4 Mg Tab.Subl) 0.4 mg SUBLINGUAL Q5MX3 PRN PRN Reason: Chest Pain Ondansetron HCl (Ondansetron Hcl 4 Mg/2 Ml Vial) 4 mg IVPUSH Q8H PRN PRN Reason: Nausea and Vomiting Pharmacy Consult (Consult Rx Perform Med Rec) 1 each MISCELLANE ONCE PRN PRN Reason: Consult order Sodium Chloride (0.9 % Sodium Chloride Flush 3 Ml Syringe) 3 ml IVFLUSH QSHIFT [facility] Last Admin: 03/11/22 07:43 Dose: 3 ml Documented By: JESI Labs 03/11/22 07:40 03/11/22 07:40 Labs: Laboratory Results - last 24 hr 03/10/22 03/10/22 03/10/22 13:43 15:30 15:30 MCV 89.5 MCH 26.2 L MCHC 29.2 L RDW 15.6 Plt Count 319 MPV 9.2 L Immature Gran % (Auto) 0.5 H Neut % (Auto) 83.6 H Lymph % (Auto) 8.1 L [place] % (Auto) 7.6 Eos % (Auto) 0.0 Baso % (Auto) 0.2 Lymph # (Auto) 1.0 L [place] # (Auto) 1.0 Eos # (Auto) 0.0 Baso # (Auto) 0.0 Abs Immat Gran (auto) 0.07 H Absolute Neuts (auto) 10.8 H Absolute Nucleated RBC 0.000 Nucleated RBC % (auto) 0.0 PT INR APTT aPTT Heparin Protocol D-Dimer High Sensitivty VBG pH VBG pCO2 VBG pO2 VBG HCO3 VBG O2 Saturation VBG Base Excess Anion Gap 19 Estim Creat Clear Calc 44.6 Estimated GFR 54 Random Glucose 134 H Lactic Acid Calcium 9.5 Total Bilirubin 0.2 AST 58 H ALT 38 H Alkaline Phosphatase 96 Total Creatine Kinase Troponin I High Sens B-Natriuretic Peptide Total Protein 6.7 Albumin 3.7 Influenza Type A (PCR) NEGATIVE Influenza Type B (PCR) NEGATIVE RSV RNA Qual (PCR) NEGATIVE SARS-CoV-2 RNA (RT-PCR) NEGATIVE 03/10/22 03/10/22 03/10/22 15:30 15:32 17:04 MCV MCH MCHC RDW Plt Count MPV Immature Gran % (Auto) Neut % (Auto) Lymph % (Auto) [place] % (Auto) Eos % (Auto) Baso % (Auto) Lymph # (Auto) [place] # (Auto) Eos # (Auto) Baso # (Auto) Abs Immat Gran (auto) Absolute Neuts (auto) Absolute Nucleated RBC Nucleated RBC % (auto) PT INR APTT aPTT Heparin Protocol D-Dimer High Sensitivty VBG pH 7.50 H VBG pCO2 44 VBG pO2 169 VBG HCO3 35 H VBG O2 Saturation 99.0 VBG Base Excess 11.0 Anion Gap Estim Creat Clear Calc Estimated GFR Random Glucose Lactic Acid Calcium Total Bilirubin AST ALT Alkaline Phosphatase Total Creatine Kinase Troponin I High Sens 1063.6 H* D B-Natriuretic Peptide 465 H Total Protein Albumin Influenza Type A (PCR) Influenza Type B (PCR) RSV RNA Qual (PCR) SARS-CoV-2 RNA (RT-PCR) 03/10/22 03/10/22 03/10/22 17:04 19:03 19:03 MCV MCH MCHC RDW Plt Count MPV Immature Gran % (Auto) Neut % (Auto) Lymph % (Auto) [place] % (Auto) Eos % (Auto) Baso % (Auto) Lymph # (Auto) [place] # (Auto) Eos # (Auto) Baso # (Auto) Abs Immat Gran (auto) Absolute Neuts (auto) Absolute Nucleated RBC Nucleated RBC % (auto) PT 11.4 INR 1.0 APTT 30.9 aPTT Heparin Protocol D-Dimer High Sensitivty VBG pH VBG pCO2 VBG pO2 VBG HCO3 VBG O2 Saturation VBG Base Excess Anion Gap Estim Creat Clear Calc Estimated GFR Random Glucose Lactic Acid 1.5 Calcium Total Bilirubin AST ALT Alkaline Phosphatase Total Creatine Kinase Troponin I High Sens 1209.2 H* B-Natriuretic Peptide Total Protein Albumin Influenza Type A (PCR) Influenza Type B (PCR) RSV RNA Qual (PCR) SARS-CoV-2 RNA (RT-PCR) 03/10/22 03/11/22 03/11/22 19:03 01:12 07:40 MCV MCH MCHC RDW Plt Count MPV Immature Gran % (Auto) Neut % (Auto) Lymph % (Auto) [place] % (Auto) Eos % (Auto) Baso % (Auto) Lymph # (Auto) [place] # (Auto) Eos # (Auto) Baso # (Auto) Abs Immat Gran (auto) Absolute Neuts (auto) Absolute Nucleated RBC Nucleated RBC % (auto) PT 10.5 INR 0.9 APTT aPTT Heparin Protocol 54.4 D-Dimer High Sensitivty 272 VBG pH VBG pCO2 VBG pO2 VBG HCO3 VBG O2 Saturation VBG Base Excess Anion Gap Estim Creat Clear Calc Estimated GFR Random Glucose Lactic Acid Calcium Total Bilirubin AST ALT Alkaline Phosphatase Total Creatine Kinase Troponin I High Sens B-Natriuretic Peptide Total Protein Albumin Influenza Type A (PCR) Influenza Type B (PCR) RSV RNA Qual (PCR) SARS-CoV-2 RNA (RT-PCR) 03/11/22 03/11/22 03/11/22 07:40 07:40 09:18 MCV 88.0 MCH 26.5 L MCHC 30.2 L RDW 15.7 Plt Count 308 MPV 9.8 Immature Gran % (Auto) 0.3 Neut % (Auto) 69.2 Lymph % (Auto) 18.5 L [place] % (Auto) 10.7 Eos % (Auto) 0.9 Baso % (Auto) 0.4 Lymph # (Auto) 1.9 [place] # (Auto) 1.1 Eos # (Auto) 0.1 Baso # (Auto) 0.0 Abs Immat Gran (auto) 0.03 Absolute Neuts (auto) 7.0 Absolute Nucleated RBC 0.000 Nucleated RBC % (auto) 0.0 PT INR APTT aPTT Heparin Protocol 40.3 L D D-Dimer High Sensitivty VBG pH VBG pCO2 VBG pO2 VBG HCO3 VBG O2 Saturation VBG Base Excess Anion Gap 14 Estim Creat Clear Calc 60.4 Estimated GFR > 60 Random Glucose 110 Lactic Acid Calcium 9.5 Total Bilirubin AST ALT Alkaline Phosphatase Total Creatine Kinase 302 H Troponin I High Sens B-Natriuretic Peptide Total Protein Albumin Influenza Type A (PCR) Influenza Type B (PCR) RSV RNA Qual (PCR) SARS-CoV-2 RNA (RT-PCR) 03/11/22 09:18 MCV MCH MCHC RDW Plt Count MPV Immature Gran % (Auto) Neut % (Auto) Lymph % (Auto) [place] % (Auto) Eos % (Auto) Baso % (Auto) Lymph # (Auto) [place] # (Auto) Eos # (Auto) Baso # (Auto) Abs Immat Gran (auto) Absolute Neuts (auto) Absolute Nucleated RBC Nucleated RBC % (auto) PT INR APTT aPTT Heparin Protocol D-Dimer High Sensitivty VBG pH VBG pCO2 VBG pO2 VBG HCO3 VBG O2 Saturation VBG Base Excess Anion Gap Estim Creat Clear Calc Estimated GFR Random Glucose Lactic Acid Calcium Total Bilirubin AST ALT Alkaline Phosphatase Total Creatine Kinase Troponin I High Sens 821.0 H* B-Natriuretic Peptide Total Protein Albumin Influenza Type A (PCR) Influenza Type B (PCR) RSV RNA Qual (PCR) SARS-CoV-2 RNA (RT-PCR) Assessment and Plan (1) Elevated troponin: Status: Acute Plan 66-year-old female with pertinent history of chronic hypoxic respiratory failure due to COPD on baseline 5 L supplemental oxygen, mood disorder, essential hypertension who presented to the emergency department for evaluation of sob sob resolved elevated troponin trop flat, echo unremarkable cardio appreciated - acs unlikely dced heparin right arm pain had ? proximal humerus fracture about 1 [place] [facility] [place], pain control, outpatient ortho Chronic hypoxemic respiratory failure secondary to COPD:? On 5 L baseline home O2.? No exacerbation on admission.? Continue home inhaler Mood disorder: On lorazepam Essential hypertension:? On diltiazem Chronic normocytic anemia:? Hemoglobin above transfusion threshold DVT prophylaxis:? lovenox Full code reason for continued hospitalization: pain control Time Spent With Patient Time: Total time managing care of this patient today ____ minutes. Quality Stroke Does the patient have a stroke diagnosis?: No VTE Prior VTE?: No VTE Risk Level:: Medical - moderate - high VTE Device Contraindication: Treatment Not Indicated VTE Drug Contraindication: N/A - Med Ordered
[2022-03-11] MEDS: Fluticasone/Vilanterol 200/25 BLST.W.DEV 1 PUFF INHALE (14:20)
[2022-03-11] MEDS: Albuterol/Iprat 2.5/0.5MG 3 ML AMPUL.NEB INHALE (14:20)
[2022-03-11] MEDS: Enoxaparin Sodium 40 MG/0.4 ML SYRINGE SUBCUT (14:53)
[2022-03-11] MEDS: Atorvastatin Calcium 40 MG TABLET PO (20:06)
[2022-03-12] MEDS: HYDROmorphone HCl 0.5 MG/0.5 ML SYRINGE IVPUSH ×2 (00:36→04:48)
[2022-03-12 03:27] VITALS: BP 137/53; PULSE 92; RESP 20; TEMP 36.5; O2SAT 100
[2022-03-12 04:00] VITALS: PULSE 99
[2022-03-12] MEDS: LORazepam 1 MG TABLET 2 MG PO ×2 (04:47→10:54)
[2022-03-12 07:18] VITALS: BP 134/60; PULSE 91; RESP 17; TEMP 36.1; O2SAT 98
[2022-03-12] MEDS: Fluticasone/Vilanterol 200/25 BLST.W.DEV 1 PUFF INHALE (08:05)
[2022-03-12 08:08] VITALS: PULSE 97; RESP 20; O2SAT 96
[2022-03-12] MEDS: Aspirin Enteric Coated 81 MG TABLET.DR PO (08:44)
[2022-03-12] MEDS: dilTIAZem HCL CD 180 MG CAP.ER.24H 360 MG PO (08:48)
--- NOTE | 2022-03-12 10:21 | P.DS_ITS ---
DS: Providers Provider Date of Service: 03/12/22 Date of admission: 03/10/22 20:41 Primary care physician: Mickey Guaman MD Consults: 03/10/22 20:47 Consult to Cardiology Routine Consulting Provider: Jose Petersen Reason for consultation: NSTEMI DS: Diagnosis Discharge Diagnosis (1) Elevated troponin: Status: Acute DS: Summary Hospital Course Hospital Course: from initial hpi: 66-year-old female with pertinent history of chronic hypoxic respiratory failure due to COPD on baseline 5 L supplemental oxygen, mood disorder, essential hypertension who presents to the emergency department for evaluation of chest discomfort.? Patient states she has been having 3 days of substernal chest pain, worse with exertion and relieved with rest.? Also has been having intermittent right arm pain.? Endorses dizziness but denies sweating, nausea, vomiting, fever, chills, palpitations, shortness of breath, wheezing, abdominal pain, changes in urinary or bowel habits.? No similar complaints in the past. In the emergency department, troponin was found to be significantly elevated hospital course: patient initially presented with shortness of breath. But she stated resolved. She was noted to have elevated troponin, initially treated as NSTEMI with IV heparin. But echo was unremarkable and troponin remained flat. Was seen by Cardiology who felt ACS was unlikely. Recommended continuing aspirin and outpatient follow-up. Patient noted to have right arm pain, was seen in [facility] about a week prior to presentation and diagnosed with possible proximal humerus fracture. X-ray at our facility did not reveal any fracture. Patient given medication for pain control. For chronic hypoxic respiratory failure sent to COPD should not appear to be in acute exacerbation and she remained on 5 L baseline home O2. For mood disorder she was continued on the rasp empiric for hypertension was continue on diltiazem. For chronic normocytic anemia hemoglobin was stable. Patient is feeling better and will be discharged home. Time Spent with Patient Time attestation: Total time managing care of this patient today ____ minutes. Discharge coordination time: Greater than 30 minutes Quality: Safe Use of Opioids Does Pt have an Active Cancer Diagnosis on the Problem List?: No Quality: Stroke Does the patient have a stroke diagnosis?: No Physical Exam Vital Signs: Vital Signs: Last Vital Signs Temp 97.0 F 03/12/22 07:18 Pulse 97 02/04/23 08:08 Resp 20 03/12/22 08:08 BP 134/60 03/12/22 07:18 Pulse Ox 98 03/12/22 07:18 O2 Del Method 03/12/22 07:18 O2 Flow Rate 5 03/12/22 07:18 Oxygen Flow Rate 6 03/10/22 14:50 BMI result Body Mass Index 25.7 General: AO X 3, no acute distress Resp: CTA bilateral, no accessory muscles used CVS: S1,S2,RRR GI: soft, non tender, non distended Neuro: motor grossly intact, alert Psych: appropriate affect, appropriate insight DS: Data Data Completed and Pending Labs on day of discharge: Laboratory Results - last 24 hr 03/11/22 03/11/22 07:40 09:18 Total Creatine Kinase 302 H Troponin I High Sens 821.0 H* Preliminary micro results at discharge 03/10/22 17:05 Blood Culture - Preliminary Blood - Venous No growth after 24 hours. 03/10/22 17:05 Blood Culture - Preliminary Blood - Venous No growth after 24 hours. Discharge Plan Discharge Anticipated Discharge Date/Time: 03/12/22 10:11 Patient Disposition: Home, Self-Care Discharge Diagnosis: shoulder pain, sob Referrals: Name,MD Mickey [Primary Care Provider] - 1 Week Discharge Medications: New aspirin 81 mg Tablet,Delayed Release (Dr/Ec) 81 mg PO DAILY Qty: 30 0RF Continued albuterol sulfate 2.5 mg /3 mL (0.083 %) solution for nebulization 1 vial inhalation Q6H Rx Instructions: TAKE WITH IPROTROPIUM BROMIDE 0.02% [id number] 50-325-40 mg tablet 2 tab PO Q12H PRN (Reason: Migraine Headache) Rx Instructions: not to exceed 6 tabs/24 hours ipratropium bromide 0.02 % solution 2.5 ml inhalation Q6H Rx Instructions: TAKE WITH ALBUTEROL 0.083% diltiazem HCl 360 mg capsule,extended release 24 hr 1 cap PO DAILY lorazepam 2 mg tablet 1 tab PO Q6H PRN (Reason: anxiety) fluticasone propion-salmeterol [Wixela Inhub] 250-50 mcg/dose blister with device 1 puff inhalation BID PRN (Reason: severe sob) Discharge Orders: Discharge Order (Routine); Ordered 03/12/22 Ordered By: Fabrice Ford Diet: Advance to usual diet Activity on Discharge: As tolerated Stand Alone Forms: Patient Portal Discharge page Care Plan Goals: recovery Health Concerns: copd, troponins Plan of Treatment: outpatient cardio follow up Assessment: see above
--- NOTE | 2022-03-12 10:32 | P.PNIM_ITS ---
Subjective Subjective Date of Service: 03/12/22 Interval History: cc: sob interval history:right arm pain Physical Exam Vital Signs: Vital Signs: Last Vital Signs Temp 97.0 F 03/12/22 07:18 Pulse 97 03/12/22 08:08 Resp 20 03/12/22 08:08 BP 134/60 03/12/22 07:18 Pulse Ox 98 03/12/22 07:18 O2 Del Method 03/12/22 07:18 O2 Flow Rate 5 03/12/22 07:18 Oxygen Flow Rate 6 03/10/22 14:50 BMI result Body Mass Index 25.7 General: AO X 3, no acute distress Resp: CTA bilateral, no accessory muscles used CVS: S1,S2,RRR GI: soft, non tender, non distended Neuro: motor grossly intact, alert Psych: appropriate affect, appropriate insight Objective Data Active Medications Acetaminophen (Acetaminophen 325 Mg Tablet) 650 mg PO Q6H PRN PRN Reason: Pain, Mild (Pain Scale 1-3) Last Admin: 03/11/22 07:46 Dose: 650 mg Documented By: JESI Acetaminophen/Butalbital/Caffeine (Butalb/Acetamin/Caff 50/325/40 Tablet) 2 tab PO Q12H PRN PRN Reason: Migraine Headache Albuterol Sulfate (Albuterol Sulfate (0.083%) 2.5 Mg/3 Ml Vial.Neb) 2.5 mg INHALE Q6H [facility] Last Admin: 03/12/22 08:07 Dose: Not Given Documented By: REEMA Non-Admin Reason: Patient Refused Albuterol/Ipratropium (Albuterol/Iprat 2.5/0.5mg 3 Ml Ampul.Neb) 3 ml INHALE RQ4H PRN PRN Reason: Shortness of Breath Last Admin: 03/11/22 14:20 Dose: 3 ml Documented By: PROSPER Aspirin (Aspirin Enteric Coated 81 Mg Tablet.) 81 mg PO DAILY [facility] Last Admin: 03/12/22 08:44 Dose: 81 mg Documented By: THAO Atorvastatin Calcium (Atorvastatin Calcium 40 Mg Tablet) 40 mg PO BEDTIME [facility] Last Admin: 03/11/22 20:06 Dose: 40 mg Documented By: SOPHIE Diltiazem HCl (Diltiazem Hcl Cd 180 Mg Cap.Er.24h) 360 mg PO DAILY [facility]; Protocol Last Admin: 03/12/22 08:48 Dose: 360 mg Documented By: THAO Enoxaparin Sodium (Enoxaparin Sodium 40 Mg/0.4 Ml Syringe) 40 mg SUBCUT Q24H [facility] Last Admin: 03/11/22 14:53 Dose: 40 mg Documented By: RIOSCEL Fluticasone/Vilanterol (Fluticasone/Vilanterol 200/25 Blst.W.Dev) 1 puff INHALE DAILY [facility] Last Admin: 03/12/22 08:05 Dose: 1 puff Documented By: REEMA Hydromorphone HCl (Hydromorphone Hcl 0.5 Mg/0.5 Ml Syringe) 0.5 mg IVPUSH Q4H PRN; Protocol PRN Reason: moderate pain Last Admin: 03/12/22 04:48 Dose: 0.5 mg Documented By: SOPHIE Ipratropium [place] (Ipratropium [place] 0.5 Mg/2.5 Ml Solution) 0.5 mg INHALE Q6H [facility] Last Admin: 03/12/22 08:07 Dose: Not Given Documented By: REEMA Non-Admin Reason: Patient Refused Lorazepam (Lorazepam 1 Mg Tablet) 2 mg PO Q6H PRN PRN Reason: anxiety Last Admin: 03/12/22 04:47 Dose: 2 mg Documented By: SOPHIE Melatonin (Melatonin 3 Mg Tablet) 6 mg PO BEDTIME PRN PRN Reason: Insomnia Nitroglycerin (Nitroglycerin 0.4 Mg Tab.Subl) 0.4 mg SUBLINGUAL Q5MX3 PRN PRN Reason: Chest Pain Ondansetron HCl (Ondansetron Hcl 4 Mg/2 Ml Vial) 4 mg IVPUSH Q8H PRN PRN Reason: Nausea and Vomiting Pharmacy Consult (Consult Rx Perform Med Rec) 1 each MISCELLANE ONCE PRN PRN Reason: Consult order Sodium Chloride (0.9 % Sodium Chloride Flush 3 Ml Syringe) 3 ml IVFLUSH QSHIFT [facility] Last Admin: 03/12/22 09:54 Dose: Not Given Documented By: THAO Non-Admin Reason: No Access Labs 03/11/22 07:40 03/11/22 07:40 Labs: Laboratory Results - last 24 hr 03/11/22 03/11/22 07:40 09:18 Total Creatine Kinase 302 H Troponin I High Sens 821.0 H* Microbiology Microbiology Results: Microbiology 03/10/22 17:05 Blood Culture - Preliminary Blood - Venous No growth after 24 hours. 03/10/22 17:05 Blood Culture - Preliminary Blood - Venous No growth after 24 hours. Assessment and Plan (1) Elevated troponin: Status: Acute Plan 66-year-old female with pertinent history of chronic hypoxic respiratory failure due to COPD on baseline 5 L supplemental oxygen, mood disorder, essential hypertension who presented to the emergency department for evaluation of sob sob resolved elevated troponin trop flat, echo unremarkable cardio appreciated - acs unlikely dced heparin, continue asa right arm pain had ? proximal humer[place] [facility] - pain control Chronic hypoxemic respiratory failure secondary to COPD:? On 5 L baseline home O2.? No exacerbation on admission.? Continue home inhaler Mood disorder: On lorazepam Essential hypertension:? On diltiazem Chronic normocytic anemia:? Hemoglobin above transfusion threshold DVT prophylaxis:? lovenox Full code reason for continued hospitalization: pain control Time Spent With Patient Time: Total time managing care of this patient today ____ minutes. Quality Stroke Does the patient have a stroke diagnosis?: No VTE Prior VTE?: No VTE Risk Level:: Medical - moderate - high VTE Device Contraindication: Treatment Not Indicated VTE Drug Contraindication: N/A - Med Ordered
--- NOTE | 2022-03-12 10:51 | MHC.CM.PN ---
DP: PT IS MEDICALLY CLEARED FOR DC HOME, NO SERVICES. RN AWARE. BLS TRANSPORT SET UP FOR 12 NOON VIA [place]UN[place].
[2022-03-12] MEDS: Albuterol/Iprat 2.5/0.5MG 3 ML AMPUL.NEB INHALE (11:12)
[2022-03-12 11:13] VITALS: PULSE 96; RESP 20; O2SAT 95
[2022-03-12] MEDS: HYDROmorphone HCl 2 MG TABLET 1 MG PO (11:52)
== END 2022-03-12 13:30 | disposition home or self-care (01) | DRG 556 ==
LOC: HO.ED 20:42 → HO.EDOVER 20:52 → HO.IMC 03-11 00:55
PROVIDERS: Emergency Medicine; Physician Assistant Medical; Admitting Provider Student in an Organized Health Care Education/Training Program; Emergency Provider Emergency Medicine; PCP Internal Medicine Geriatric Medicine; Visit Provider Internal Medicine
DX: M25.511 Pain in right shoulder (principal); J96.11 Chronic respiratory failure with hypoxia; J43.9 Emphysema, unspecified; I10 Essential (primary) hypertension; D64.9 Anemia, unspecified; D72.829 Elevated white blood cell count, unspecified; F41.9 Anxiety disorder, unspecified; R79.89 Other specified abnormal findings of blood chemistry; Z20.822 Contact with and (suspected) exposure to COVID-19; R07.9 Chest pain, unspecified; Z99.81 Dependence on supplemental oxygen; Z87.891 Personal history of nicotine dependence; Z88.0 Allergy status to penicillin; Z88.2 Allergy status to sulfonamides; Z88.5 Allergy status to narcotic agent; Z79.51 Long term (current) use of inhaled steroids; Z79.82 Long term (current) use of aspirin; Z79.899 Other long term (current) drug therapy
CPT/HCPCS: 0241U; 36415; 71045; 71275; 73030; 80048; 80053; 82550; 82803; 83605; 83880; 84484; 85025; 85379; 85610; 85730; 87040; 87147; 87205; 93005; 93308; 94640; 99222; 99285; J0696; J1170; J1643; J1650; Q9957; Q9967

== ENCOUNTER 2022-03-31 17:07 | Emergency (ER) | payer MEDICARE, SELFPAY ==
[2022-03-31 17:24] VITALS: BP 131/64; PULSE 93; RESP 22; O2SAT 99; BMI 25.0
--- NOTE | 2022-03-31 17:27 | ECG_ITS ---
Test Reason : SHORT OF BREATH Blood Pressure : / mmHG Vent. Rate : 092 BPM Atrial Rate : 092 BPM P-R Int : 146 ms QRS Dur : 080 ms QT Int : 350 ms P-R-T Axes : 072 025 055 degrees QTc Int : 432 ms Artifact in tracing Sinus rhythm with Premature atrial complexes Otherwise normal ECG When compared with ECG of 10-MAR-2022 17:59, Premature atrial complexes are now Present Referred By: Generic ED Physician Electronically Signed By:GABI BALBUENA
[2022-03-31 17:56] LABS: MANUAL DIFF FLAG NO
[2022-03-31 17:57] LABS: Hematocrit 35.5 % (37.0-47.0); Hemoglobin 10.9 g/dl (12.0-16.0); Imm Gran Abs Auto 0.04 X10*3/uL (0.00-0.03); Imm Gran Pct Auto 0.5 % (0.0-0.4); Lymphocytes Absolute Auto 0.5 X10*3/uL (1.2-4.9); Lymphocytes Percent Auto 5.7 % (20-40); Mean Corpuscular HGB Conc 30.7 g/dl (31.0-35.0); Mean Corpuscular Hemoglobin 26.5 pg (27.0-33.0); Mean Corpuscular Volume 86.4 fL (80.0-98.0); Mean Platelet Volume 9.2 fL (9.4-12.3); Monocytes Absolute Auto 0.3 X10*3/uL (0.1-1.2); Neutrophils Absolute Auto 7.3 x10*3/uL (2.0-8.3); Neutrophils Percent Auto 89.8 % (45-73); Platelet Count 328 X10*3/uL (160-400); Red Blood Count 4.11 X10*6/uL (4.20-5.50); Red Cell Distribution Width 15.9 % (11.0-16.0); White Blood Count 8.2 X10*3/uL (4.8-10.8)
[2022-03-31 18:13] LABS: Anion Gap 16 (12-20); Blood Urea Nitrogen 28 mg/dL (9-16); Calcium 9.8 mg/dL (8.4-10.2); Carbon Dioxide 32 mmol/L (22-29); Chloride 96 mmol/L (96-108); Creatinine Clr Calc Pharmacy 77.1; Estimated Glomerular Filt Rate > 60; Glucose Random 118 mg/dL (60-115); Potassium 4.8 mmol/L (3.3-5.1); Sodium 139 mmol/L (135-145)
[2022-03-31 18:17] LABS: COVID-19 Test Negative (Negative); IDNOW Serial# 16C4AD1C; Troponin-I High Sensitivity 6.3 ng/L (<3.5-17.0)
[2022-03-31 18:20] LABS: B Type Natriuretic Peptide 39 pg/mL (<100)
[2022-03-31 18:35] LABS: Alanine Aminotransferase 11 U/L (0-31); Albumin Level 4.2 g/dL (3.5-5.0); Alkaline Phosphatase 105 U/L (39-117); Bilirubin Total 0.2 mg/dL (0.0-1.0); Lipase 7 U/L (8-78); Total Protein 7.4 g/dL (6.5-8.0)
[2022-03-31 18:46] LABS: Aspartate Amino Transferase 18 U/L (5-31); Bilirubin Direct < 0.2 mg/dL (0.0-0.5)
[2022-03-31 23:28] VITALS: BP 138/60; PULSE 82; RESP 16; TEMP 36.7; O2SAT 95
--- NOTE | 2022-03-31 23:29 | MHC.EDTECH ---
patient was called back to triage to have vitals sign re check .
[2022-04-01] VITALS (9 sets, daily range): BP systolic 110–144; BP diastolic 48–71; PULSE 63–97; RESP 16–18; TEMP 36.8–37.1; O2SAT 97–100
--- NOTE | 2022-04-01 00:09 | ED_ITS ---
HPI - General Adult General Chief complaint: Dizziness Stated complaint: lower abd pain Time Seen by Provider: 04/01/22 00:08 Source: patient Mode of arrival: EMS Limitations: no limitations History of Present Illness HPI narrative: Patient has significant past medical history including chronic hypoxic respiratory failure due to COPD on 247/7 oxygen 5 L, mood disorder, hypertension been to hospital multiple times evacuated from the motile 2 days ago yesterday patient went to [facility] discharged today unable to go to any other place comes here with multiple complaints patient does not have any oxygen complaining of dizziness weakness with lung pain Related Data Home Medications Medication Instructions Recorded Confirmed albuterol sulfate 2.5 mg/3 mL 1 vial inhalation Q6H 10/04/20 04/01/22 (0.083 %) solution for nebulization qaxvwkpbrk-hvzrffpyoyqfx-isybaius 2 tab PO Q12H PRN Migraine Headache 10/04/20 04/01/22 50 mg-325 mg-40 mg tablet diltiazem HCl 360 mg capsule,24 1 cap PO DAILY 07/08/21 04/01/22 hr,extended release lorazepam 2 mg tablet 1 tab PO Q6H PRN anxiety 07/08/21 04/01/22 ipratropium bromide 0.02 % 2.5 ml inhalation Q6H 09/25/21 04/01/22 solution for inhalation fluticasone 250 mcg-salmeterol 50 1 puff inhalation BID PRN severe 03/02/22 04/01/22 mcg/dose blistr powdr for sob inhalation (Wixela Inhub) Previous Rx's Medication Instructions Recorded aspirin 81 mg tablet,delayed 81 mg PO DAILY #30 tabs 03/12/22 release Allergies Allergy/AdvReac Type Severity Reaction Status Date / Time morphine [MORPHINE] Allergy Severe HIVES, Verified 03/10/22 12:38 high temp, nausea tramadol [TRAMADOL] Allergy Severe SWEATING, Verified 03/10/22 12:38 VOMITING, vomiting Sulfa (Sulfonamide Allergy Unknown Verified 03/10/22 12:38 Antibiotics) amoxicillin [From AUGMENTIN] AdvReac Severe CONSTIPATIO Verified 03/10/22 12:38 N clavulanic acid AdvReac Severe CONSTIPATIO Verified 03/10/22 12:38 [From AUGMENTIN] N codeine [CODEINE] AdvReac Severe NAUSEA Verified 03/10/22 12:38 levofloxacin [From LEVAQUIN] AdvReac Severe CONSTIPATIO Verified 03/10/22 12:38 N Review of Systems Review of Systems: Yes all other systems are reviewed and are negative [facility] Past Medical History Medical History Acute and chronic respiratory failure with hypoxia Anxiety Asthma Bronchitis Chronic lung disease Chronic obstructive pulmonary disease with hypoxia Chronic respiratory failure COPD (chronic obstructive pulmonary disease) Diverticulitis Dizziness Emphysema lung Hypertension Otitis media Pulmonary abscess Vertigo Surgical History History of breast surgery History of laparotomy Family History Family History Other No family history of coronary artery disease Social History Social History Household Members: Spouse Housing: Other Housing Other:: Hotel Do you presently have visiting nurse or other home services: No Alcohol intake: never Patient Tobacco Use Status: Former Tobacco user Tobacco use type: Cigarette Substance Use Type: Marijuana Advance Directives: Yes Advance Directives on File: Yes Advance Directives Date on File: 07/09/21 service: No Current occupational status: disabled Physical Exam ED Vital Signs: Vital Signs - 24 hr 03/31/22 17:24 03/31/22 23:28 04/01/22 00:41 Temperature 98.1 F Pulse Rate 93 82 74 Respiratory Rate 22 H 16 16 Blood Pressure 131/64 138/60 Pulse Oximetry 99 95 Oxygen Delivery Method Nasal Cannula Room Air Oxygen Flow Rate 6 BMI result Body Mass Index 25.0 Appearance: Alert. Oriented X3. No acute distress. Eyes: PERRLA, No Nystagmus ENT: Pharynx normal. Oral Mucosa moist Neck: Normal inspection. Neck supple. CVS: Normal heart rate and rhythm. Pulses normal. Respiratory: Prolonged expiration. Equal air entry bilateral, no wheezing/rales/rhonchi Abdomen: Soft and nontender. Bowel sounds are present, no mass palpable, no CVA tenderness Skin: Skin warm and dry. Normal skin color. Normal skin turgor. Extremities: No lower extremity edema. No calf tenderness Neuro: Oriented X 3. No motor deficit. No sensory deficit.No cerebellar signs , cranial nerves II-XII intact Medications Administered Discontinued Medications Generic Name Dose Route Start Last Admin Trade Name Richelle PRN Reason Stop Dose Admin Acetaminophen/Butalbital/Caffeine 1 tab 04/01/22 03:25 04/01/22 03:32 Butalb/Acetamin/Caff 50/325/40 Tablet PO 04/01/22 03:26 1 tab ONCE ONE Administration Albuterol Sulfate 2.5 mg/ 0 mg 04/01/22 00:22 04/01/22 00:41 Ipratropium [place] 0.5 mg INHALE 04/01/22 00:23 2.5 each ONCE ONE Administration Lorazepam 1 mg 04/01/22 04:45 04/01/22 04:50 Lorazepam 0.5 Mg Tablet PO 04/01/22 04:46 1 mg ONCE ONE Administration Medical Decision Making Medical Decision Making MDM Narrative: Patient with multiple medical conditions came here as does only place to go would like to be placed patient is on oxygen 5 liter/minute medically cleared Lab Data [facility] Lab Attestation statement: I reviewed the patient's lab results. 03/31/22 17:50 03/31/22 17:50 Labs: Lab Results 03/31/22 03/31/22 03/31/22 Range/Units 17:50 17:50 17:50 WBC 8.2 (4.8-10.8) X10*3/uL RBC 4.11 L (4.20-5.50) X10*6/uL Hgb 10.9 L (12.0-16.0) g/dl Hct 35.5 L (37.0-47.0) % MCV 86.4 (80.0-98.0) fL MCH 26.5 L (27.0-33.0) pg MCHC 30.7 L (31.0-35.0) g/dl RDW 15.9 (11.0-16.0) % Plt Count 328 (160-400) X10*3/uL MPV 9.2 L (9.4-12.3) fL Immature Gran % (Auto) 0.5 H (0.0-0.4) % Neut % (Auto) 89.8 H (45-73) % Lymph % (Auto) 5.7 L (20-40) % Mellette % (Auto) 4.0 (2-11) % Eos % (Auto) 0.0 (0-4) % Baso % (Auto) 0.0 (0-2) % Lymph # (Auto) 0.5 L (1.2-4.9) X10*3/uL Mellette # (Auto) 0.3 (0.1-1.2) X10*3/uL Eos # (Auto) 0.0 (0.0-0.4) X10*3/uL Baso # (Auto) 0.0 (0.0-0.2) X10*3/uL Abs Immat Gran (auto) 0.04 H (0.00-0.03) X10*3/uL Absolute Neuts (auto) 7.3 (2.0-8.3) x10*3/uL Absolute Nucleated RBC 0.000 (0.0-0.012) X10*3/uL Nucleated RBC % (auto) 0.0 (0.0-0.2) /100WBC Sodium 139 (135-145) mmol/L Potassium 4.8 D (3.3-5.1) mmol/L Chloride 96 (96-108) mmol/L Carbon Dioxide 32 H (22-29) mmol/L Anion Gap 16 (12-20) BUN 28 H (9-16) mg/dL Creatinine 0.58 (0.5-1.4) mg/dL Estim Creat Clear Calc 77.1 Estimated GFR > 60 Random Glucose 118 H (60-115) mg/dL Calcium 9.8 (8.4-10.2) mg/dL Total Bilirubin 0.2 (0.0-1.0) mg/dL Direct Bilirubin < 0.2 (0.0-0.5) mg/dL AST 18 (5-31) U/L ALT 11 (0-31) U/L Alkaline Phosphatase 105 (39-117) U/L Troponin I High Sens (<3.5-17.0) ng/L B-Natriuretic Peptide (<100) pg/mL Total Protein 7.4 (6.5-8.0) g/dL Albumin 4.2 (3.5-5.0) g/dL Lipase 7 L (8-78) U/L COVID-19 (SEAN) Negative (Negative) COVID-19 Clin Com See Note 03/31/22 03/31/22 Range/Units 17:50 17:50 WBC (4.8-10.8) X10*3/uL RBC (4.20-5.50) X10*6/uL Hgb (12.0-16.0) g/dl Hct (37.0-47.0) % MCV (80.0-98.0) fL MCH (27.0-33.0) pg MCHC (31.0-35.0) g/dl RDW (11.0-16.0) % Plt Count (160-400) X10*3/uL MPV (9.4-12.3) fL Immature Gran % (Auto) (0.0-0.4) % Neut % (Auto) (45-73) % Lymph % (Auto) (20-40) % Mellette % (Auto) (2-11) % Eos % (Auto) (0-4) % Baso % (Auto) (0-2) % Lymph # (Auto) (1.2-4.9) X10*3/uL Mellette # (Auto) (0.1-1.2) X10*3/uL Eos # (Auto) (0.0-0.4) X10*3/uL Baso # (Auto) (0.0-0.2) X10*3/uL Abs Immat Gran (auto) (0.00-0.03) X10*3/uL Absolute Neuts (auto) (2.0-8.3) x10*3/uL Absolute Nucleated RBC (0.0-0.012) X10*3/uL Nucleated RBC % (auto) (0.0-0.2) /100WBC Sodium (135-145) mmol/L Potassium (3.3-5.1) mmol/L Chloride (96-108) mmol/L Carbon Dioxide (22-29) mmol/L Anion Gap (12-20) BUN (9-16) mg/dL Creatinine (0.5-1.4) mg/dL Estim Creat Clear Calc Estimated GFR Random Glucose (60-115) mg/dL Calcium (8.4-10.2) mg/dL Total Bilirubin (0.0-1.0) mg/dL Direct Bilirubin (0.0-0.5) mg/dL AST (5-31) U/L ALT (0-31) U/L Alkaline Phosphatase (39-117) U/L Troponin I High Sens 6.3 D (<3.5-17.0) ng/L B-Natriuretic Peptide 39 (<100) pg/mL Total Protein (6.5-8.0) g/dL Albumin (3.5-5.0) g/dL Lipase (8-78) U/L COVID-19 (SEAN) (Negative) COVID-19 Clin Com Independent Interpretation I performed an independent interpretation of an: EKG Interpretation: Normal sinus rhythm heart rate of 92 beats per minute PACs no acute ST changes no acute ischemia Discharge Plan Discharge Clinical Impression: Homeless, Chronic respiratory failure with hypoxia Patient Disposition: Still a Patient Prescriptions: No Action albuterol sulfate 2.5 mg /3 mL (0.083 %) solution for nebulization 1 vial inhalation Q6H Rx Instructions: TAKE WITH IPROTROPIUM BROMIDE 0.02% ungfjpwhbi-xkzzznzmhkbtn-xqar 50-325-40 mg tablet 2 tab PO Q12H PRN (Reason: Migraine Headache) Rx Instructions: not to exceed 6 tabs/24 hours ipratropium bromide 0.02 % solution 2.5 ml inhalation Q6H Rx Instructions: TAKE WITH ALBUTEROL 0.083% aspirin 81 mg Tablet,Delayed Release (Dr/Ec) 81 mg PO DAILY Qty: 30 0RF diltiazem HCl 360 mg capsule,extended release 24 hr 1 cap PO DAILY lorazepam 2 mg tablet 1 tab PO Q6H PRN (Reason: anxiety) fluticasone propion-salmeterol [Wixela Inhub] 250-50 mcg/dose blister with device 1 puff inhalation BID PRN (Reason: severe sob)
[2022-04-01] MEDS: Butalb/Acetamin/Caff 50/325/40 TABLET 1 TAB PO (03:32)
[2022-04-01] MEDS: LORazepam 0.5 MG TABLET 1 MG PO (04:50)
--- NOTE | 2022-04-01 05:12 | PC.NURSE ---
Pt. resting in bed with at bedside. Pt. reported migraine headache and was medicated with fiorecet with little effect. Pt. also has a hx of anxiety for which she takes lorazepam. Pt. medicated per APR. Pt. is pending a CM/SW consult. Will continue to monitor
[2022-04-01] MEDS: Aspirin Enteric Coated 81 MG TABLET.DR PO (10:56)
[2022-04-01] MEDS: dilTIAZem HCL CD 180 MG CAP.ER.24H 360 MG PO (10:56)
[2022-04-01] MEDS: Fluticasone/Vilanterol 100/25 BLST.W.DEV 1 PUFF INHALE (10:56)
[2022-04-01] MEDS: LORazepam 1 MG TABLET 2 MG PO ×2 (11:01→17:33)
[2022-04-01] MEDS: Ipratropium Bromide 0.5 MG/2.5 ML SOLUTION INHALE (11:33)
[2022-04-01] MEDS: Albuterol Sulfate (0.083%) 2.5 MG/3 ML VIAL.NEB INHALE (11:34)
--- NOTE | 2022-04-01 11:42 | PC.NURSE ---
pt resting in bed. at bedside. was tampering with O2 for pt, educated on not doing this for risk of pt.
--- NOTE | 2022-04-01 15:41 | MHC.CM.ED ---
Addendum entered by Chelsie Nash 04/01/22 16:35: Patient is not agreeable to discharge to [facility] at this time. Patient states I am going to my doctor's appointment at 1 on Monday. I'm not going to rehab. T/W tried to explain patient would have to be discharged from the ER. Would not be able to stay in the ER until Monday. Patient verbalized understanding. T/W attempted to offer a half-way this. Patient refusing to go to a half-way at this time. When inquired about where patient will be discharging, patient stated I just go somewhere to . T/W attempted to redirect patient to discuss an appropriate discharge plan. Unable to redirect patient at this time. Kelley OCHOA aware. Original Note: Received case management consult overnight. Patient was at [facility] on 03/31. Patient's work up was negative and they were going to discharge patient to a half-way because she is currently homeless. Patient's spouse called an Uber and transported patient to [facility]. Work up continues to be negative. Patient has a long standing history of oxygen dependent COPD. Work up essentially negative. Physical therapy eval completed. Short term rehab is recommended. Met with patient and her in regards to discharge planning. Both were evicted from their apartment in 2016. Since then, they have been staying in motels. They were on at the [facility] in [place] from the beginning of March until Thursday 03/30. They were not able to pay for their room. Patient was receiving oxygen through [employer]. [employer] picked up the equipment at the motel this week. Patient has a doctor's appointment on Monday. Patient and aware STR is being recommended. Also aware bed availability has been difficult to obtain locally. Referral broadcasted to all facilities in the [facility] that are contracted with [facility]. [facility] was originally going to offer a bed. However, the room the patient would be going to, the patient in that room is currently positive for Covid. Bed offered at [facility]. Bed accepted by patient. Patient will leave 04/02 at 10am via [facility]. [facility] with chart. Patient, Addis Benson RN and Kelley OCHOA aware. Continue to monitor for d/c needs.
[2022-04-01 15:57] LABS: Appearance Urine Clear; Color Urine Yellow; Glucose Urine UA Negative (Negative); Leukocyte Esterase Urine Trace (Negative); Nitrite Urine Negative (Negative); Specific Gravity - Urine >= 1.030 (1.005-1.025); UMIC TRIGGER UACC YES; Urine Blood Negative (Negative); Urine Ketones Negative (Negative); Urine Protein Trace mg/dL (Neg-Trace)
[2022-04-01 16:02] LABS: Bacteria Urine None Seen (None Seen); Hyaline Casts Urine 0-2 /LPF (0-2); RBC Urine 0-2 /HPF (0-2); Squamous Epithelial Cell Urine 0-2 /HPF (0-2); WBC Urine 0-5 /HPF (0-5)
--- NOTE | 2022-04-01 21:55 | MHC.CM.ED ---
LIBBY spoke with patient and , Marcelino in an attempt to persuade patient to go to STR. Pt not willing to listen to CM, but eventually was able to understand that her decision is not the best for her, but she said it was her decision not to go to rehab so far away. No other bed offers. Pt is oxygen dependent and cannot be discharged safely to a senior care. Pt was at the [employer] lodge in [place], until 3-4 days ago, when their money ran out and they had to leave. Pt could not take her oxygen concentrator with her, it was somehow damaged, and [employer] will not longer supply her with oxygen supplies. Pt then went to [place] ED, where she spent the next 3 days there. She left there and came to [facility] via Uber. There was a filing with [facility] for neglect. Ezequiel Vermaa is her spring tier. Message left with Ezequiel about patient choice not to go to STR. Pt plans to go to her doctor appointment with Mickey Guaman on Monday for an oxygen needs assessment. CM stressed that she still would not have a place to live, so could not get her oxygen and concentrator. Pt states Dr. Guaman will take care of me, he said so . When CM questioned his ability to provide housing, patient and spouse stated that the doctor would help them. Pt HCP is her Marcelino. LIBYB spoke with Kelley OCHOA regarding CM attempts to convince patient to go to STR, without success. Kelley has concerns about discharging a patient with oxygen supplementation needs. LIBBY also has concerns. Call placed to Gladys Boyer. Gladys requests that I complete a Notice of Non-Coverage if patient chooses to stay in ED and refuse safe discharge to STR. Forms found on public drive, completed and reviewed with patient. Pt understands and signed form. Pt still declines STR and will continue with her plan. Copy of form given to patient, one on chart and one copy to Gladys Boyer. Pt will be moved to over flow. is aware that he cannot stay overnight in the overflow with his . states he will stay in the ED waiting room, as he has no where to go. Both RN Addis and provider aware. Discussed with patient and concerns that patient needs more stable housing, especially with her needing home oxygen. They are living on 2 SS checks only. Given contact information for [facility] and [facility]. Enc them to seek help from these agencies to discuss housing options. Bed declined at SNF and BLS cancelled for 04/01.
[2022-04-02 01:28] VITALS: PULSE 63; RESP 17; O2SAT 100
[2022-04-02] MEDS: Albuterol Sulfate (0.083%) 2.5 MG/3 ML VIAL.NEB INHALE ×2 (01:28→17:12)
[2022-04-02] MEDS: Ipratropium Bromide 0.5 MG/2.5 ML SOLUTION INHALE ×2 (01:28→17:17)
[2022-04-02] MEDS: LORazepam 1 MG TABLET 2 MG PO ×4 (02:20→21:57)
[2022-04-02 06:26] VITALS: BP 122/51; PULSE 70; RESP 17; TEMP 36.4; O2SAT 99
[2022-04-02] MEDS: Aspirin Enteric Coated 81 MG TABLET.DR PO (08:07)
[2022-04-02] MEDS: dilTIAZem HCL CD 180 MG CAP.ER.24H 360 MG PO (08:07)
--- NOTE | 2022-04-02 08:36 | PC.NURSE ---
at bedside patient remains on O2 with good effect. Tolerated po food and fluid no distress noted. Anxiolytic admin per patient request will CTM
[2022-04-02 09:26] VITALS: BP 128/56; PULSE 74; RESP 18; TEMP 36.9; O2SAT 100
--- NOTE | 2022-04-02 11:53 | PC.NURSE ---
pt sleeping, arousable to verbal stimuli. at bedside. O2 sat at 99% on 5L O2 NC.
[2022-04-02 14:38] VITALS: BP 126/47; PULSE 77; RESP 18; TEMP 36.7; O2SAT 99
--- NOTE | 2022-04-02 14:44 | PC.NURSE ---
pt watching TV with who is at bedside. O2 99% 5L NC. Pt reports pain in right scapula area due to fracture fro 3 weeks ago.
--- NOTE | 2022-04-02 14:51 | PC.NURSE ---
pt medicated with PRN ativan
--- NOTE | 2022-04-02 15:49 | PC.NURSE ---
pt requested updraft. called respiratory.
--- NOTE | 2022-04-02 16:13 | MHC.EDTECH ---
Brought patient two boxes of facial tissue upon request.
[2022-04-02 17:15] VITALS: PULSE 87; RESP 18; O2SAT 100
--- NOTE | 2022-04-02 17:23 | PC.NURSE ---
updraft given by respiratory
[2022-04-02 22:00] VITALS: BP 131/64; PULSE 87; RESP 16; TEMP 36.7; O2SAT 100
--- NOTE | 2022-04-03 | MHC.EDTECH ---
0000 rounding done ,pt sleeping .
[2022-04-03 06:00] VITALS: BP 138/66; PULSE 80; RESP 16; TEMP 36.8; O2SAT 95
--- NOTE | 2022-04-03 06:02 | MHC.EDTECH ---
0600 rounding done ,vitals sign taken ,pt voided 1 times during the night ,warm blanket given ,fresh water given ,pt sleeping .
[2022-04-03 09:17] VITALS: BP 131/61; PULSE 99; RESP 18; TEMP 37.3; O2SAT 100
--- NOTE | 2022-04-03 09:23 | MHC.EDTECH ---
Emptied patients cammode and replace liner. Sharda Christian
--- NOTE | 2022-04-03 09:30 | PC.NURSE ---
assumed care of this patient at 900 am, patient a&ox3, family at bedside, vitals stable, pt continues to be on 3l O2 nc, speaking in full sentences no dyspnea noted, call campos within reach, will continue to monitor.
[2022-04-03] MEDS: LORazepam 1 MG TABLET 2 MG PO ×2 (10:12→16:39)
[2022-04-03] MEDS: Aspirin Enteric Coated 81 MG TABLET.DR PO (10:12)
[2022-04-03] MEDS: dilTIAZem HCL CD 180 MG CAP.ER.24H 360 MG PO (10:12)
--- NOTE | 2022-04-03 10:15 | PC.NURSE ---
pt medicated with ordered aspirin and Cardizem. Pt requested prn ativan, nurse administered.
[2022-04-03] MEDS: Butalb/Acetamin/Caff 50/325/40 TABLET 2 TAB PO (10:22)
--- NOTE | 2022-04-03 10:23 | PC.NURSE ---
pt reported severe migraine. administered PRN Fioricet
--- NOTE | 2022-04-03 13:18 | PC.NURSE ---
patient asking for updraft, RT was called
--- NOTE | 2022-04-03 13:30 | PC.NURSE ---
respiratory came over to give updraft to patient, patient refused treatment upon her arrival.
[2022-04-03 14:27] VITALS: BP 124/42; PULSE 70; RESP 18; TEMP 36.9; O2SAT 100
--- NOTE | 2022-04-03 14:34 | PC.NURSE ---
pt and watching tv. VSS. Pt on 5L O2 NC sat 100%
--- NOTE | 2022-04-03 14:52 | MHC.CM.ED ---
Met w/pt to review d/c plan: Pt holding in ED for O2 needs/homeless status. Refusing STR and not able to d/c to residential w/O2. Review of O2 notes pt is satting 100% on 4-5 liters. Discussed w/ED PA: ? taper off of O2 to which the PA stated she is O2 dependent at some liter flow and could not fx on room air. Pt has signed a notice of non coverage and is aware she will be billed for staying in the ED. Pt continues to state she has an appointment on 04/[address] Guaman and he will fix all of this Pt states she will have funds at the beginning of April. Will continue to request O2 titration to improve pt's chances of placement.
[2022-04-03] MEDS: Ipratropium Bromide 0.5 MG/2.5 ML SOLUTION INHALE (15:26)
[2022-04-03] MEDS: Albuterol Sulfate (0.083%) 2.5 MG/3 ML VIAL.NEB INHALE (15:26)
[2022-04-03 15:27] VITALS: RESP 18; O2SAT 98
[2022-04-03] MEDS: Acetaminophen 325 MG TABLET PO (15:52)
--- NOTE | 2022-04-03 15:53 | PC.NURSE ---
Addendum entered by Love Harrison 04/03/22 16:44: lung sounds clear diminished throughout. Original Note: pt given PRN tylenol. Pt requested O2 to be increased from prescribed 4L to 5L. This nurse maintained O2 at 4L per Respiratory's order post up-draft. This nurse attempted twice to take pt's O2 sat measurement, but they refused. Pt. continued to insist that O2 be increased. This nurse asked that they take their O2 sat before increasing NC flow. Pt continued to refuse
--- NOTE | 2022-04-03 16:42 | PC.NURSE ---
administered requested PRN Ativan.
--- NOTE | 2022-04-03 17:17 | PC.NURSE ---
patients came out with his cell phone stating reggie was on the phone and was planning on calling in a prescription for the patient, the patient told them they were in the hospital and this nurse was handed the phone by the , the provider asked what the ED phone number was and the name of the ED provider so they could speak with them vs speak with nursing staff.
[2022-04-03] MEDS: Cyclobenzaprine HCl 10 MG TABLET PO (18:01)
--- NOTE | 2022-04-03 18:05 | PC.NURSE ---
patient is yelling at nursing staff about not listening to her stating that her urine is positive and she was told she is going to if she isnt admitted for antibiotics, urine was obtained. will notify provider. pt upset she isnt having blood cultures drawn.
[2022-04-03 18:19] LABS: Appearance Urine Clear; Color Urine Yellow; Glucose Urine UA Negative (Negative); Leukocyte Esterase Urine Moderate (2+) (Negative); Nitrite Urine Positive (Negative); Specific Gravity - Urine 1.015 (1.005-1.025); UMIC TRIGGER UACC YES; Urine Blood Negative (Negative); Urine Ketones Negative (Negative); Urine Protein Negative (Neg-Trace)
[2022-04-03 18:23] LABS: Bacteria Urine 4+ (None Seen); Hyaline Casts Urine 0-2 /LPF (0-2); RBC Urine 0-2 /HPF (0-2); Squamous Epithelial Cell Urine 0-2 /HPF (0-2); UACC Culture Trigger YES; WBC Urine 21-50 /HPF (0-5)
--- NOTE | 2022-04-03 19:52 | PC.NURSE ---
Pt reports she received a call from [facility] regarding positive results and was told she needs IV abx. Pt also requesting stronger pain meds for 10/10 crushing and constant pain to bilateral lower abdominal pain. Notified ED provider pt requesting pain meds and urine results are in ? UTI.
--- NOTE | 2022-04-03 20:15 | PC.NURSE ---
Rn brought ordered po abx and po prn Tylenol as ordered. Pt is declining both medications. Pt continues to request IV abx and stronger pain medications. Pt is requesting to be transferred to [facility]. Ed provider informed.
[2022-04-03] MEDS: levoFLOXacin 250 MG TABLET PO (21:41)
[2022-04-03] MEDS: Docusate Sodium 100 MG CAPSULE PO (21:41)
[2022-04-03] MEDS: Ketorolac Tromethamine 15 MG/ML VIAL IM (21:42)
--- NOTE | 2022-04-03 21:51 | PC.NURSE ---
Administered meds per MAR.
[2022-04-03 22:00] VITALS: BP 132/45; PULSE 82; RESP 18; TEMP 35.7; O2SAT 100
[2022-04-04 06:00] VITALS: BP 117/61; PULSE 89; RESP 20; TEMP 36.2; O2SAT 100
[2022-04-04] MEDS: LORazepam 1 MG TABLET 2 MG PO ×3 (06:54→21:23)
[2022-04-04] MEDS: Acetaminophen 325 MG TABLET PO (07:43)
[2022-04-04] MEDS: Butalb/Acetamin/Caff 50/325/40 TABLET 2 TAB PO ×2 (08:09→23:18)
[2022-04-04] MEDS: dilTIAZem HCL CD 180 MG CAP.ER.24H 360 MG PO (08:10)
[2022-04-04] MEDS: Docusate Sodium 100 MG CAPSULE PO ×2 (08:10→20:37)
[2022-04-04] MEDS: Aspirin Enteric Coated 81 MG TABLET.DR PO (08:10)
[2022-04-04] MEDS: Ketorolac Tromethamine 30 MG/ML VIAL IM (10:12)
[2022-04-04] MEDS: Albuterol Sulfate (0.083%) 2.5 MG/3 ML VIAL.NEB INHALE (12:10)
[2022-04-04] MEDS: Ipratropium Bromide 0.5 MG/2.5 ML SOLUTION INHALE (12:10)
[2022-04-04 12:12] VITALS: PULSE 89; RESP 19; O2SAT 92
--- NOTE | 2022-04-04 14:12 | MHC.CM.ED ---
Addendum entered by Chelsie Nash 04/05/22 08:34: On 04/04/2022 at 16:30, patient was provided current itemized bill as requested by Leadership. Original Note: Patient remains in ER overflow. Patient had PCP appointment scheduled for 1pm today. Patient refused to go because she didn't have oxygen. This information was provided to Gladys Boyer, clinical case manager. Gladys spoke with risk. Patient could be transported by BLS with oxygen if agreeable. Appointment time already passed. maintenance assistant attempting to obtain another appointment for today without success. PCP's office will call patient to rearrange another appointment. Gladys spoke with Raza in respiratory. [employer] has agreed to provide oxygen if a new O2 eval was provided. Respiratory working on this now. Continue to monitor for d/c needs.
--- NOTE | 2022-04-04 14:50 | PC.RT ---
I interviewed patient regarding her home oxygen supplies. Patient is aware that [employer] has terminated the patient due to excessive damage on her oxygen supplies. I confirmed that also after speaking directly to [employer] as well, and they confirmed the damage as well. Once the patient receives her money she and her will decide which hotel they will go to. Once this happens, Respiratory will due a full Home Oxygen Evaluation and will have [employer] or [employer] as her DME company. Patient understands that this is a life saving oxygen device and it should not be tampered or damaged as it can be harmful and even cause if this equipment gets severely damaged.
[2022-04-04 17:24] VITALS: BP 136/57; PULSE 96; RESP 18; TEMP 36.9; O2SAT 100
[2022-04-04] MEDS: Ketorolac Tromethamine 15 MG/ML VIAL IM (17:26)
[2022-04-04] MEDS: levoFLOXacin 250 MG TABLET PO (20:38)
--- NOTE | 2022-04-04 23:22 | PC.NURSE ---
pt assessed reported severe migraine headache, medicated with 2 floricet po
[2022-04-05] MEDS: LORazepam 1 MG TABLET 2 MG PO ×3 (04:54→19:55)
[2022-04-05 04:59] VITALS: BP 121/62; PULSE 90; RESP 16; O2SAT 96
--- NOTE | 2022-04-05 07:54 | PC.NURSE ---
pt's at bedside with coffee.
[2022-04-05 08:20] VITALS: BP 134/69; PULSE 98; RESP 16; TEMP 36.4; O2SAT 100
[2022-04-05] MEDS: Docusate Sodium 100 MG CAPSULE PO (08:24)
[2022-04-05] MEDS: Aspirin Enteric Coated 81 MG TABLET.DR PO (08:24)
[2022-04-05] MEDS: Fluticasone/Vilanterol 100/25 BLST.W.DEV 1 PUFF INHALE (08:24)
[2022-04-05] MEDS: dilTIAZem HCL CD 180 MG CAP.ER.24H 360 MG PO (08:24)
--- NOTE | 2022-04-05 08:33 | PC.NURSE ---
pt is a/o x 4 no sob/pedro noted lungs - diminished. speaks in full sentences. remain at bedside. pt c/o 09/15 migraine headache, pt to be med with firocet. pt/ aware of plan of care.
[2022-04-05] MEDS: Butalb/Acetamin/Caff 50/325/40 TABLET 2 TAB PO (09:58)
--- NOTE | 2022-04-05 13:01 | PC.NURSE ---
[facility] AT BEDSIDE. PT/ AT BEDSIDE.
--- NOTE | 2022-04-05 13:12 | MHC.CM.ED ---
Patient remains in ER overflow. Per RT [facility] [employer] just met with patient. Patient and her will discharge to [facility] at [address] [facility] in [place] on Monday 3.3. Patient will need BLS transport at that time. Continue to monitor for d/c needs.
[2022-04-05 13:51] VITALS: BP 106/61; PULSE 93; RESP 16; TEMP 37.1; O2SAT 99
[2022-04-05] MEDS: polyethylene glycoL 3350 17 GM POWD.PACK PO (13:58)
--- NOTE | 2022-04-05 16:07 | PC.NURSE ---
Went in to give fioricet pt was sleeping.
[2022-04-05] MEDS: Butalb/Acetamin/Caff 50/325/40 TABLET 1 TAB PO (18:15)
[2022-04-05] MEDS: Ipratropium Bromide 0.5 MG/2.5 ML SOLUTION INHALE (19:39)
[2022-04-05] MEDS: Albuterol Sulfate (0.083%) 2.5 MG/3 ML VIAL.NEB INHALE (19:39)
[2022-04-05 19:41] VITALS: PULSE 104; RESP 16; O2SAT 94
[2022-04-05 22:09] VITALS: BP 124/61; PULSE 98; RESP 16; TEMP 36.8; O2SAT 100
--- NOTE | 2022-04-05 22:39 | PC.NURSE ---
Patient was very upset that she could not get her 2 tabs of fioricet tid. Patient got one extra dose but kept asking for a second one. Patient c/o migraine 10/16. Tatyana OCHOA notified about fioricet and her refusal of levaquin po. States I can only get IV antibiotics .
[2022-04-06] MEDS: Butalb/Acetamin/Caff 50/325/40 TABLET 2 TAB PO ×2 (03:53→15:41)
[2022-04-06] MEDS: LORazepam 1 MG TABLET 2 MG PO ×3 (03:53→16:31)
[2022-04-06 05:43] VITALS: BP 122/78; PULSE 97; RESP 18; TEMP 36.8; O2SAT 100
[2022-04-06] MEDS: Aspirin Enteric Coated 81 MG TABLET.DR PO (08:19)
[2022-04-06] MEDS: dilTIAZem HCL CD 180 MG CAP.ER.24H 360 MG PO (08:19)
[2022-04-06] MEDS: Docusate Sodium 100 MG CAPSULE PO (08:19)
[2022-04-06 08:23] VITALS: BP 161/63; PULSE 100; RESP 18; TEMP 36.6; O2SAT 95
--- NOTE | 2022-04-06 09:22 | MHC.CM.ED ---
Patient remains in ER overflow. Discharge plan is for patient to go to [facility] on Saturday 04/08. [facility] will deliver oxygen to patient on 04/08. Gladys Boyer CM director aware. Continue to monitor for d/c needs.
--- NOTE | 2022-04-06 12:41 | PC.NURSE ---
Patient remains resting comfortably. Alert and oriented x3, able to make needs known. Repositioning independently. in at bedside. PRN Ativan given with good effect.
[2022-04-06 14:55] VITALS: PULSE 90; PULSE 91; PULSE 96; O2SAT 82; O2SAT 89; O2SAT 92
[2022-04-06 15:32] VITALS: BP 134/59; PULSE 100; RESP 20; TEMP 36.7; O2SAT 98
--- NOTE | 2022-04-06 19:00 | PC.NURSE ---
Patient requesting respiratory for treatment, on resp therapist arrival patient refusing treatment.
--- NOTE | 2022-04-06 20:50 | PC.NURSE ---
Assumed care of pt at 1900. Pt aox3 resting at the bedside. Pt reports having loose stools and requiring assistance with toileting. Pt also requesting immodium for diarrhea. No stools noted at the bedside or inside the commode. Toileting assistance provided. Dark yellow urine noted inside the commode with no stools. Pt due for colace at 2100. Not given per pts request.
[2022-04-06 22:00] VITALS: RESP 20; O2SAT 99
--- NOTE | 2022-04-07 03:21 | PC.NURSE ---
Pt noted to be sleeping at the bedside then waking up and requesting to be medicated with Ativan and Fioret. Pt reports headache, 11/15. When this nurse returned to medicate pt as requested, pt noted to be sleeping at the bedside in no apparent distress. Breaths even, regular, and unlabored with equal chest rises. Medications not administered as pt appears to be in no distress and returned to sleep comfortably. Will continue to monitor.
[2022-04-07 06:00] VITALS: BP 154/67; PULSE 88; RESP 16; TEMP 36.2; O2SAT 99
[2022-04-07] MEDS: LORazepam 1 MG TABLET 2 MG PO ×3 (06:14→18:22)
[2022-04-07] MEDS: Butalb/Acetamin/Caff 50/325/40 TABLET 2 TAB PO ×2 (06:14→18:22)
--- NOTE | 2022-04-07 06:24 | PC.NURSE ---
Pt awake, aox3. Reports headache, 10/10. Medicated as ordered and tolerated well. Will continue to monitor.
[2022-04-07 07:34] VITALS: BP 138/73; PULSE 91; RESP 18; TEMP 36.3; O2SAT 97
--- NOTE | 2022-04-07 08:41 | PC.RT ---
pt currently refusing all respiratory tx. will revisit and retry in an hour
[2022-04-07] MEDS: Aspirin Enteric Coated 81 MG TABLET.DR PO (10:01)
[2022-04-07] MEDS: dilTIAZem HCL CD 180 MG CAP.ER.24H 360 MG PO (10:01)
[2022-04-07] MEDS: Ipratropium Bromide 0.5 MG/2.5 ML SOLUTION INHALE ×2 (12:02→21:41)
[2022-04-07] MEDS: Albuterol Sulfate (0.083%) 2.5 MG/3 ML VIAL.NEB INHALE ×2 (12:02→21:41)
[2022-04-07 12:03] VITALS: PULSE 91; RESP 18; O2SAT 97
[2022-04-07 18:27] VITALS: BP 167/72; PULSE 99; RESP 15; TEMP 36.5; O2SAT 94
--- NOTE | 2022-04-07 18:39 | PC.NURSE ---
pt requesting prn meds for pain and anxiety frequently despite education on how often they can be administered. RT delivered O2 tanks at bedside for pt upon d/c. Pt is planned to be d/c tomorrow per CM with O2 via [facility] to [facility]. Pt visitor at bedside assisting with care. Pt receiving treatments as ordered, refuses at times.
--- NOTE | 2022-04-07 23:16 | PC.NURSE ---
Assumed care of pt. at 1900. Pt. resting quietly in bed with at bedside. Pt. refused her colace and senna as she reported having some loose stools which she attributes to taking an antibiotic. At appoximately 2100 pt. requesting a breathing treatment. Her next treatment wasn't due until 0000, however it was noted that she has not had her 1800 treatment. Respiratory called and a breathing treatment was completed. Pt. in room and talking on phone and watching tv. No distress noted. Will continue to monitor.
[2022-04-08] MEDS: LORazepam 1 MG TABLET 2 MG PO ×3 (00:50→16:34)
--- NOTE | 2022-04-08 03:42 | PC.NURSE ---
Pt. sleeping, respirations even and unlabored, no distress noted. Will continue to monitor.
[2022-04-08 05:42] VITALS: BP 126/53; PULSE 83; RESP 16; TEMP 35.9; O2SAT 100
[2022-04-08] MEDS: Aspirin Enteric Coated 81 MG TABLET.DR PO (08:23)
[2022-04-08] MEDS: Butalb/Acetamin/Caff 50/325/40 TABLET 2 TAB PO (08:25)
[2022-04-08] MEDS: Fluticasone/Vilanterol 100/25 BLST.W.DEV 1 PUFF INHALE (08:29)
[2022-04-08 08:32] VITALS: BP 116/64; PULSE 84; RESP 18; O2SAT 94
[2022-04-08] MEDS: dilTIAZem HCL CD 180 MG CAP.ER.24H 360 MG PO (11:03)
--- NOTE | 2022-04-08 11:19 | PC.NURSE ---
Patient initially sleeping difficult to arouse, responsive to tactile stimulation agitated that this RN poked her to awaken her AOx 4 no distress noted remains on O2 with good effect. Patient calm apologetic will CTM
--- NOTE | 2022-04-08 13:45 | MHC.CM.ED ---
Addendum entered by Chelsie Nash 04/08/22 14:00: Marcelino can be reached via telephone at [phone] Original Note: Patient remains in ER overflow. , Marcelino, has obtained lodging at [facility] in [place]. Marcelino attempted to call [facility] to get oxygen delivered. Marcelino states he was told by [facility] they don't have any paperwork for the patient. T/W spoke with Adria from [facility]. Marcelino needs to call [facility] at [phone] and ask for Fiona or Freda. Received notification from Yash SAGASTUME that patient is upset that she will have a copay. Per Adria at [facility], because patient doesn't have a secondary insurance, her copay will $26. Not per day. Just $26. Patient is staying at [facility] in room #7. BLS transpotation will be booked. Gladys Boyer, director of Case Management aware. Continue to monitor for d/c needs.
--- NOTE | 2022-04-08 14:40 | PC.NURSE ---
Verified with case management patient will be DC'd to [facility], per case managment patient's should have 2 tanks of O2 in case concentrator hasnt arrived yet. Will await discharge
[2022-04-08 15:31] VITALS: BP 137/72; PULSE 116; RESP 20; O2SAT 96
--- NOTE | 2022-04-08 15:49 | MHC.CM.ED ---
Received notification from LIBBY Graham director that [facility] hasn't obtained insurance auth yet. Transport has been put on hold at this time. Continue to monitor for d/c needs.
--- NOTE | 2022-04-08 16:27 | PC.NURSE ---
Patient continues to be anxious throughout the day pharmacy called for ativan out of stock in pyxis [facility]
[2022-04-08] MEDS: Acetaminophen 325 MG TABLET PO (16:34)
--- NOTE | 2022-04-08 16:39 | PC.NURSE ---
Spoke to Denise cagle managemnet to clarify plan for patient. She will reach out to to see status of O2 company and to see if and when its possible to facilitate Discharge will ANTONIOM
--- NOTE | 2022-04-08 17:50 | PC.NURSE ---
Notified counseling case manager patient's reports O2 has been set up in room will await transport to [facility]
--- NOTE | 2022-04-08 18:48 | MHC.CM.ED ---
Addendum entered by Claudia Villagomez 04/08/22 19:29: Pt given flyer for [facility] which has housing assistance along with other community services. Original Note: Pt is all set for discharge. BLS booked for 8pm. Will come earlier if possible. Per Patient and , Shad has arrived at the motel and the oxygen is there. RN and PA aware. CM will follow for d/c needs.
== END 2022-04-08 19:27 | disposition home or self-care (01) ==
PROVIDERS: Nurse Practitioner Family; Physician Assistant; Emergency Provider Internal Medicine; PCP Internal Medicine Geriatric Medicine
DX: J96.11 Chronic respiratory failure with hypoxia (principal); J44.1 Chronic obstructive pulmonary disease with (acute) exacerbation; R42 Dizziness and giddiness; N39.0 Urinary tract infection, site not specified; B96.89 Other specified bacterial agents as the cause of diseases classified elsewhere; R10.30 Lower abdominal pain, unspecified; R06.02 Shortness of breath; Z59.00 Homelessness unspecified; Z20.822 Contact with and (suspected) exposure to COVID-19; R51.9 Headache, unspecified; F41.9 Anxiety disorder, unspecified; I10 Essential (primary) hypertension; I21.4 Non-ST elevation (NSTEMI) myocardial infarction; F12.90 Cannabis use, unspecified, uncomplicated; Z87.891 Personal history of nicotine dependence; Z79.82 Long term (current) use of aspirin; Z79.899 Other long term (current) drug therapy; Z99.81 Dependence on supplemental oxygen
CPT/HCPCS: 36415; 80048; 80076; 81001; 83690; 83880; 84484; 85025; 87086; 87088; 87186; 87635; 93005; 94640; 96372; 97162; 99285; J1885

== ENCOUNTER 2022-04-16 23:30 | Emergency (ER) | payer MEDICARE, SELFPAY ==
--- NOTE | ~2022-04-16 | XR_ITS ---
EXAMINATION: XR hand wrist LT CLINICAL INFORMATION: Reason for Exam s/p fall COMPARISON: None. TECHNIQUE: 3 views FINDINGS: No acute fracture or dislocation. Demineralized bones. Small marginal osteophytes of the first CMC joint. No erosions. Soft tissues unremarkable. XR/XR hand wrist LT IMPRESSION: * No acute fracture or dislocation. * Demineralized bones.
[2022-04-16 23:40] VITALS: BP 130/57; PULSE 88; PULSE 90; RESP 20; TEMP 36.8; O2SAT 100; O2SAT 98; BMI 29.2
--- NOTE | 2022-04-16 23:47 | ED.FALL ---
HPI - Fall General Chief Complaint: Fall Stated Complaint: FALL 2DAYS AGO FACE/HEAD VIZCARRA,-CCOLLAR,-THINNERS Time Seen by Provider: 04/16/22 23:41 Source: patient Mode of arrival: EMS Limitations: no limitations History of Present Illness HPI Narrative: Patient with history of COPD oxygen dependent came here as she fell 2 days ago while trying to shredder picker something from the floor lost balance and fell to the ground and oxygen tank smacked her left side of the face no loss of consciousness no significant headache was behaving normally for the last 48 hours, complaining of slight tenderness left hand with ecchymosis no deformity no other injuries, earlier today noticed nausea and upper abdominal pain with urinary frequency and nausea Related Data Home Medications Medication Instructions Recorded Confirmed albuterol sulfate 2.5 mg/3 mL 1 vial inhalation Q6H 10/04/20 04/01/22 (0.083 %) solution for nebulization uamffsjfpn-eeufftcmgnvjw-yhqpbrop 2 tab PO Q12H PRN Migraine Headache 10/04/20 04/01/22 50 mg-325 mg-40 mg tablet diltiazem HCl 360 mg capsule,24 1 cap PO DAILY 07/08/21 04/01/22 hr,extended release lorazepam 2 mg tablet 1 tab PO Q6H PRN anxiety 07/08/21 04/01/22 ipratropium bromide 0.02 % 2.5 ml inhalation Q6H 09/25/21 04/01/22 solution for inhalation fluticasone 250 mcg-salmeterol 50 1 puff inhalation BID PRN severe 03/02/22 04/01/22 mcg/dose blistr powdr for sob inhalation (Wixela Inhub) Previous Rx's Medication Instructions Recorded aspirin 81 mg tablet,delayed 81 mg PO DAILY #30 tabs 03/12/22 release Allergies Allergy/AdvReac Type Severity Reaction Status Date / Time tramadol [TRAMADOL] Allergy Severe SWEATING, Verified 04/16/22 23:48 VOMITING, vomiting Sulfa (Sulfonamide Allergy Unknown Verified 04/16/22 23:48 Antibiotics) amoxicillin [From AUGMENTIN] AdvReac Severe CONSTIPATIO Verified 04/16/22 23:48 N clavulanic acid AdvReac Severe CONSTIPATIO Verified 04/16/22 23:48 [From AUGMENTIN] N codeine [CODEINE] AdvReac Severe NAUSEA Verified 04/16/22 23:48 levofloxacin [From LEVAQUIN] AdvReac Severe CONSTIPATIO Verified 04/16/22 23:48 N Review of Systems Review of Systems: Yes all other systems are reviewed and are negative [facility] Past Medical History Medical History Acute and chronic respiratory failure with hypoxia Anxiety Asthma Bronchitis Chronic lung disease Chronic obstructive pulmonary disease with hypoxia Chronic respiratory failure COPD (chronic obstructive pulmonary disease) Diverticulitis Dizziness Emphysema lung Hypertension Otitis media Pulmonary abscess Vertigo Surgical History History of breast surgery History of laparotomy Family History Family History Other No family history of coronary artery disease Social History Social History Household Members: Spouse Housing: Other Housing Other:: Hotel Do you presently have visiting nurse or other home services: No Alcohol intake: current Alcohol intake frequency: a few times a month Alcohol type: beer Patient Tobacco Use Status: Former Tobacco user Tobacco use type: Cigarette Smoked in Last 30 Days: No Use of substances other than those prescribed or required for medical reasons: Yes Substance Use Type: Marijuana Substance Use Frequency: Occasionally Advance Directives: Yes Advance Directives on File: Yes Advance Directives Date on File: 07/09/21 service: No Current occupational status: disabled Physical Exam Vital Signs: Vital Signs: Last Vital Signs Temp 98.3 F 04/16/22 23:40 Pulse 88 04/16/22 23:40 Resp 20 04/16/22 23:40 BP 130/57 L 04/16/22 23:40 Pulse Ox 100 04/16/22 23:40 O2 Del Method 04/16/22 23:40 Oxygen Flow Rate 4 04/16/22 23:40 BMI result Body Mass Index 29.2 Appearance: Alert. Oriented X3. No acute distress. Eyes: PERRLA, No Nystagmus ENT: Pharynx normal. 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 Neck supple. No midline tenderness CVS: Normal heart rate and rhythm. Pulses normal. Respiratory: No respiratory distress. Equal air entry bilateral, no wheezing/rales/rhonchi Abdomen: Soft, epigastric tenderness Bowel sounds are present, no mass palpable, no CVA tenderness Skin: Skin warm and dry. Normal skin color. Normal skin turgor. Extremities: No lower extremity edema. No calf tenderness left hand slight ecchymosis no bony deformities Neuro: Oriented X 3. No motor deficit. No sensory deficit.No cerebellar signs , cranial nerves II-XII intact Medications Administered Discontinued Medications Generic Name Dose Route Start Last Admin Trade Name Freq PRN Reason Stop Dose Admin Al Hydroxide/Mg Hydroxide 30 ml 04/17/22 00:06 04/17/22 00:31 Magnesium Hydrox/Alum Hydrox 30 Ml Oral.Susp PO 04/17/22 00:07 Not Given ONCE ONE Hydromorphone HCl 2 mg 04/17/22 00:06 04/17/22 00:30 Hydromorphone Hcl 2 Mg Tablet PO 04/17/22 00:07 2 mg ONCE ONE Administration Ondansetron HCl 4 mg 04/17/22 00:06 04/17/22 00:30 Ondansetron Odt 4 Mg Tab.Rapdis TRANSLINGU 04/17/22 00:07 4 mg ONCE ONE Administration Medical Decision Making Medical Decision Making [facility] Narrative: Patient is status post minor fall x-ray left hand negative for fracture no significant facial injury no need for any imaging for the face urine is negative vital stable send the patient back to home Lab Data Labs: Lab Results 04/17/22 Range/Units 00:33 Urine Color Yellow Urine Appearance Clear Urine pH 6.0 (5.0-9.0) Ur Specific [place] 1.025 (1.005-1.025) Urine Protein Trace (Neg-Trace) mg/dL Urine Glucose (UA) Negative (Negative) mg/dL Urine Ketones Trace (Negative) mg/dL Urine Blood Negative (Negative) Urine Nitrite Negative (Negative) Ur Leukocyte Esterase Negative (Negative) Discharge Plan Discharge Clinical Impression: Contusion of hand, left, Fall Patient Disposition: Home, Self-Care Instructions: Fall Prevention for Older Adults (ED), Contusion in Adults (ED) Additional Instructions: X-ray of the left hand is negative for fracture Continue oxygen for chronic lung disease Care cautions as advised for risk of fall Prescriptions: No Action albuterol sulfate 2.5 mg /3 mL (0.083 %) solution for nebulization 1 vial inhalation Q6H Rx Instructions: TAKE WITH IPROTROPIUM BROMIDE 0.02% utfyomemra-jiylgghhhuklq-yvnk 50-325-40 mg tablet 2 tab PO Q12H PRN (Reason: Migraine Headache) Rx Instructions: not to exceed 6 tabs/24 hours ipratropium bromide 0.02 % solution 2.5 ml inhalation Q6H Rx Instructions: TAKE WITH ALBUTEROL 0.083% aspirin 81 mg Tablet,Delayed Release (Dr/Ec) 81 mg PO DAILY Qty: 30 0RF diltiazem HCl 360 mg capsule,extended release 24 hr 1 cap PO DAILY lorazepam 2 mg tablet 1 tab PO Q6H PRN (Reason: anxiety) fluticasone propion-salmeterol [Wixela Inhub] 250-50 mcg/dose blister with device 1 puff inhalation BID PRN (Reason: severe sob)
[2022-04-17] MEDS: HYDROmorphone HCl 2 MG TABLET PO (00:30)
[2022-04-17] MEDS: Ondansetron ODT 4 MG TAB.RAPDIS TRANSLINGU (00:30)
[2022-04-17 00:39] LABS: Appearance Urine Clear; Color Urine Yellow; Glucose Urine UA Negative (Negative); Leukocyte Esterase Urine Negative (Negative); Nitrite Urine Negative (Negative); Specific Gravity - Urine 1.025 (1.005-1.025); Urine Blood Negative (Negative); Urine Ketones Trace mg/dL (Negative); Urine Protein Trace mg/dL (Neg-Trace)
[2022-04-17 03:46] VITALS: BP 137/63; PULSE 76; RESP 17; TEMP 36.4; O2SAT 98
== END 2022-04-17 03:55 | disposition home or self-care (01) ==
PROVIDERS: Emergency Provider Internal Medicine
DX: S60.222A Contusion of left hand, initial encounter (principal); W01.198A Fall on same level from slipping, tripping and stumbling with subsequent striking against other object, initial encounter; Y93.9 Activity, unspecified; Y92.9 Unspecified place or not applicable; Y99.9 Unspecified external cause status
CPT/HCPCS: 73110; 73130; 81003; 99283; 99284

== ENCOUNTER 2022-04-19 19:06 | Observation (INO) | payer MEDICARE, SELFPAY ==
--- NOTE | ~2022-04-19 | CT_ITS ---
EXAMINATION CT CHEST, ABDOMEN AND PELVIS WITH CONTRAST CLINICAL INFORMATION: Trauma COMPARISON: CTA chest dated 03/10/2022 and 12/22/2021. CT abdomen/pelvis dated 01/08/2022 and 07/08/2021. TECHNIQUE: Multidetector volumetric CT imaging of the chest, abdomen and pelvis was obtained after the administration of 85 mL of intravenous Omnipaque 350 without immediate adverse reactions. Coronal and sagittal reformats were reviewed. This CT examination was performed using dose optimization techniques as appropriate, variously including the following: *Automated exposure control *Adjustment of mA and/or kV according to patient size (this includes techniques or standardized protocols for targeted exams where dose is matched to indication/reason for exam; i.e. extremities or head) *Use of iterative reconstruction technique DLP: mGy-cm. FINDINGS: CHEST LUNGS/PLEURA: Severe emphysema. Diffuse mild bronchial thickening without bronchiectasis. Stable bandlike pleural-parenchymal scarring in the right upper lobe along the minor fissure and in the inferior right middle lobe. There are a few tiny nodular opacities in the lateral basal segment of right lower lobe which are flat in morphology on the coronal images and represent focal areas of atelectasis or possibly localized bronchiolitis. No suspicious pulmonary nodules. There are a few calcified pleural plaques along the anterior right costophrenic sulcus which are unchanged since December 2021, but new since July 2021. MEDIASTINUM/TYRESE: There is a 1.7 cm right thyroid nodule. Imaged lower neck otherwise unremarkable. Normal heart size. Great vessels normal caliber. Coronary calcifications present. No mediastinal, hilar or supraclavicular lymphadenopathy. CHEST WALL/AXILLA: Unremarkable. ABDOMEN/PELVIS HEPATOBILIARY: Liver normal in size, contour and morphology. No suspicious lesions. Subcentimeter cyst in the lateral right hepatic lobe is unchanged and benign. No intra or extrahepatic biliary dilation. Cholelithiasis. No pericholecystic inflammation. PANCREAS: Unremarkable. SPLEEN: Unremarkable. ADRENAL GLANDS: Unremarkable. KIDNEYS, URETERS AND BLADDER: Kidneys normal in size, axis and morphology demonstrating symmetric enhancement. There are bilateral simple renal cysts which are benign. No follow-up recommended. No hydronephrosis or urinary calculi. Ureters normal in course and caliber. Bladder grossly unremarkable.. GASTROINTESTINAL TRACT: Pancolonic diverticulosis. No evidence of diverticulitis. Intact enteroenteric anastomosis in the mid abdomen. No intestinal obstruction or inflammation. No evidence of appendicitis. Small sliding-type hiatal hernia PELVIC VISCERA: Slightly increased size of a simple appearing cyst in the right ovary now measuring up to 3.0 cm, previously 2.7 cm in July 2021 and 2.4 cm in September 2020. There is an adjacent 2.2 cm simple appearing cyst in the right ovary as well. Normal left ovary and uterus. LYMPH NODES: No lymphadenopathy. PERITONEUM/BODY WALL: Unremarkable. VASCULAR STRUCTURES: Aorta is atherosclerotic but normal caliber. Patent vascular structures. OSSEOUS STRUCTURES No acute or suspicious osseous abnormalities. There is mild compression deformity involving the superior endplate at T4 resulting in 10-20% height loss anteriorly with out significant height loss posteriorly. This was faintly evident on the from the prior CT chest on 03/10/2022, however there is increased sclerosis on the current exam. Minimal superior endplate compression deformity present along the anterior endplates of T2 and T3, with associated sclerosis, presumably also representing subtle fractures from the same time (03/10/2022). There is also smaller crescentic sclerosis along the posterior superior endplate of L4 which is new from the prior CT abdomen/pelvis on 01/08/2022, also likely a chronic fracture, without associated vertebral body height loss. Healed fracture of the anatomic neck of the right humerus. CT/CT abdomen pelvis w IV con IMPRESSION: * No evidence of acute traumatic visceral injury within the chest, abdomen or pelvis. * There are mild superior endplate compression deformities at T2-T4 and microtrabecular impaction near the superior endplate of L4. The thoracic spine fractures were faintly evident in March 2022, but show increased sclerosis since then. The fracture at L4 also likely sustained then as well. * Severe emphysema. * There are a few calcified pleural plaques along the anterior right costophrenic sulcus which are unchanged since December 2021, but new since July 2021. These are nonspecific and can be seen in the setting of exudative pleural effusion. * There is a 1.7 cm right thyroid nodule. * Cholelithiasis. * Pancolonic diverticulosis without evidence of diverticulitis. * There are 2 simple appearing cysts in the right ovary which are slightly increasing in size over the years. Recommend follow-up pelvic ultrasound in 6-12 months.
--- NOTE | ~2022-04-19 | MR_ITS ---
EXAMINATION: MR BRAIN WITHOUT CONTRAST CLINICAL INFORMATION: Cerebrovascular accident. COMPARISON: CT head from 04/19/2022. TECHNIQUE: MRI of the brain was obtained using routine sequences without contrast. FINDINGS: No focal restricted diffusion is demonstrated to suggest acute or subacute cerebral ischemia. No evidence of acute or chronic hemorrhagic products on heme-sensitive imaging. Scattered and partially confluent periventricular, deep white matter, and brainstem T2 FLAIR hyperintensities consistent with moderate to extensive underlying microangiopathy. Proportional prominence of the ventricles and sulcal spaces without evidence of obstructive hydrocephalus. No abnormal mass effect. No midline shift. Normal appearance of the pituitary gland. Normal positioning of the cerebellar tonsils. Normal arterial and venous vascular flow voids are present. Normal, homogeneous marrow signal. Mild mucosal thickening of the paranasal sinuses. Moderate right-sided and small left-sided mastoid effusions. MR/MR head/brain wo con IMPRESSION: 1. No acute intracranial abnormalities. 2. Moderate to extensive underlying microangiopathy and generalized cerebral volume loss.
--- NOTE | ~2022-04-19 | CT_ITS ---
EXAMINATION: NONCONTRAST HEAD CT NONCONTRAST CERVICAL SPINE CT INDICATION INFORMATION: Trauma COMPARISON: CT chest dated 03/10/2022. CT head and cervical spine dated 09/04/2021 TECHNIQUE: Separate noncontrast CT examinations of the head and cervical spine were performed. Coronal and sagittal images were created for each examination at the technologist workstation. This CT examination was performed using dose optimization techniques as appropriate, variously including the following: *Automated exposure control *Adjustment of mA and/or kV according to patient size (this includes techniques or standardized protocols for targeted exams where dose is matched to indication/reason for exam; i.e. extremities or head) *Use of iterative reconstruction technique DLP: 1026 mGy-cm FINDINGS: Head: There is no evidence of acute intracranial hemorrhage or territorial infarction. No abnormal mass effect or midline shift is seen. Trent to white matter differentiation is well preserved. No extra-axial fluid collections are identified. No hydrocephalus. No significant volume loss. Patchy periventricular and deep white matter hypoattenuation is consistent with moderate-severe small vessel ischemic changes. No acute osseous or soft tissue abnormality. The mastoid air cells and visualized portions of the paranasal sinuses are well aerated. Cervical spine: There is anatomic alignment of the vertebral bodies and posterior elements. The atlantoaxial and atlantooccipital articulations are intact. Cervical vertebral body heights are maintained. Endplate osteophytes and loss of disc space height present from C4-C7. There is mild compression deformity involving the superior endplates at T4 resulting in 10-20% height loss anteriorly with out significant height loss posteriorly. This was faintly evident on the from the prior CT chest on 03/10/2022, however there is increased sclerosis on the current exam. Minimal superior endplate compression deformity present along the anterior endplates of T1 and T2, with associated sclerosis, presumably also representing subtle fractures from the same time. (03/10/2022). No prevertebral soft tissue swelling. Paraspinal soft tissues unremarkable. Severe emphysema. The thyroid gland is unremarkable. CT/CT cervical spine wo IV con IMPRESSION: * No acute intracranial findings. * No acute fracture or malalignment of the cervical spine. * Chronic mild compression deformity involving the superior endplate of T4 resulting in 10-20% height loss anteriorly with out significant height loss posteriorly. This was faintly evident on the prior CT chest on 03/10/2022, however there is increased sclerosis on the current exam. * Chronic minimal superior endplate compression deformities along the anterior endplates of T1 and T2 with associated sclerosis, presumably also representing subtle fractures from the same time.
--- NOTE | ~2022-04-19 | XR_ITS ---
EXAMINATION: XR SHOULDER, RIGHT CLINICAL INFORMATION: Right-sided shoulder pain COMPARISON: Prior shoulder radiographs dated 03/12/2022 along with 02/17/2012 TECHNIQUE: 3 view of the right shoulder. FINDINGS: There is a subcapital fracture of the humeral neck with some minimal impaction but no significant angulation or displacement. This may have been present on the 03/12/2022 study but not seen on the 02/17/2012 exam. No dislocation is seen. No other fractures. XR/XR shoulder RT min 2V IMPRESSION: Subcapital right humeral neck fracture. This critical result was discussed with GABRIELA Hagan at 9:05 PM on the day of the and it was ascertained that the content and urgency of the report was understood at the time of direct communication.
--- NOTE | ~2022-04-19 | XR_ITS ---
EXAMINATION: XR CHEST CLINICAL INFORMATION: Shortness of breath COMPARISON: 03/10/2022. TECHNIQUE: AP upright portable view of the chest was obtained. 1159 hours. Patient slightly rotated to the right. FINDINGS: There are linear atelectatic changes observed near the right midlung. Small interstitial lines are seen perpendicular to the chest wall near the bases which could be related to fibrosis versus interstitial edema in the appropriate clinical circumstances. Linear atelectasis noted toward the right base. There is some blunting in the right costophrenic angle which may reflect a small effusion or pleural reaction. XR/XR chest 1V IMPRESSION: Findings suggestive of basilar fibrosis versus interstitial edema in the appropriate clinical circumstances. Linear atelectatic changes right midlung and right base. Small right effusion versus pleural reaction.
--- NOTE | 2022-04-19 19:15 | ECG_ITS ---
Test Reason : shortness of breath Blood Pressure : / mmHG Vent. Rate : 105 BPM Atrial Rate : 105 BPM P-R Int : 168 ms QRS Dur : 076 ms QT Int : 336 ms P-R-T Axes : 074 017 071 degrees QTc Int : 444 ms Sinus tachycardia Otherwise normal ECG When compared with ECG of 31-MAR-2022 17:35, Premature atrial complexes are no longer Present Referred By: Shayy Turner Electronically Signed By:Jose Petersen
[2022-04-19 19:21] VITALS: BP 177/76; BP 185/78; PULSE 113; PULSE 114; RESP 20; TEMP 37; O2SAT 96
[2022-04-19 19:22] VITALS: BP 156/74; PULSE 113
[2022-04-19 19:23] VITALS: PULSE 116
--- NOTE | 2022-04-19 19:33 | ED.DIZZY ---
HPI - Dizziness General Chief Complaint: Fall Stated Complaint: dizziness Time Seen by Provider: 04/20/22 00:39 Source: patient Mode of arrival: ambulatory Limitations: no limitations History of Present Illness HPI Narrative: This is a 66-year-old female history of NSTEMI, COPD, presenting to the emergency department for evaluation of dizziness for a few weeks worsening over the past few days with a fall just prior to arrival. Patient tells me she fell backwards hitting her head on the bathtub. She tells me she fell because she was dizzy. She reports the dizziness is a room spinning sensation and has not improved over the past few weeks. She tells me she could not get up. And now is having severe pain throughout her entire spine and a diffuse headache. Patient denies preceding symptoms such as chest pain, shortness of breath. Patient denies chest pain, shortness of breath, vision changes, nausea, vomiting, abdominal pain, will weakness. GCS of 15 on arrival NIH stroke scale 0. Related Data Home Medications Medication Instructions Recorded Confirmed albuterol sulfate 2.5 mg/3 mL 1 vial inhalation Q6H 10/04/20 04/19/22 (0.083 %) solution for nebulization [id number] 2 tab PO Q12H PRN Migraine Headache 10/04/20 04/19/22 50 mg-325 mg-40 mg tablet diltiazem HCl 360 mg capsule,24 1 cap PO DAILY 07/08/21 04/19/22 hr,extended release lorazepam 2 mg tablet 1 tab PO Q6H PRN anxiety 07/08/21 04/19/22 ipratropium bromide 0.02 % 2.5 ml inhalation Q6H 09/25/21 04/19/22 solution for inhalation ipratropium bromide 17 2 puff inhalation QID 04/19/22 04/19/22 mcg/actuation HFA aerosol inhaler (Atrovent HFA) meclizine 25 mg tablet 1 tab PO TID PRN dizziness 04/19/22 04/19/22 Previous Rx's Medication Instructions Recorded aspirin 81 mg tablet,delayed 81 mg PO DAILY #30 tabs 03/12/22 release Allergies Allergy/AdvReac Type Severity Reaction Status Date / Time tramadol [TRAMADOL] Allergy Severe SWEATING, Verified 04/16/22 23:48 VOMITING, vomiting Sulfa (Sulfonamide Allergy Unknown Verified 04/16/22 23:48 Antibiotics) amoxicillin [From AUGMENTIN] AdvReac Severe CONSTIPATIO Verified 04/16/22 23:48 N clavulanic acid AdvReac Severe CONSTIPATIO Verified 04/16/22 23:48 [From AUGMENTIN] N codeine [CODEINE] AdvReac Severe NAUSEA Verified 04/16/22 23:48 levofloxacin [From LEVAQUIN] AdvReac Severe CONSTIPATIO Verified 04/16/22 23:48 N Review of Systems Review of Systems: Constitutional : No Weight loss, No Fever, No Chills, No Fatigue, No Malaise ENT/Mouth : No sore throat, No Rhinorrhea Eyes: No Eye Pain, No Swelling, No Redness Cardiovascular : No Chest Pain, No SOB, No Dyspnea on Exertion, No Orthopnea, No Edema, No Palpitations Respiratory : No Cough, No Sputum, No Wheezing Gastrointestinal : No Nausea, No Vomiting, No Diarrhea, No Constipation, No abdominal Pain, No Hematochezia, No Melena Genitourinary : No Dysuria, No Urinary Frequency, No Hematuria, Musculoskeletal : No joint pain, No Myalgias, No Joint Swelling Skin : No Skin Lesions, No rash Neuro : No Weakness, No Numbness, + Dizziness, + Headache Psych : No Anxiety/Panic, No Depression All other systems reviewed and are negative Yes all other systems are reviewed and are negative [facility] Past Medical History Attestation statement: The following information was validated with the patient. Source: old records reviewed and nursing notes reviewed Medical History Acute and chronic respiratory failure with hypoxia Anxiety Asthma Bronchitis Chronic lung disease Chronic obstructive pulmonary disease with hypoxia Chronic respiratory failure COPD (chronic obstructive pulmonary disease) Diverticulitis Dizziness Emphysema lung Hypertension Otitis media Pulmonary abscess Vertigo Surgical History History of breast surgery History of laparotomy Family History Family History Other No family history of coronary artery disease Social History Social History Household Members: Spouse Housing: Other Housing Other:: Hotel Do you presently have visiting nurse or other home services: No Alcohol intake: current Alcohol intake frequency: holidays/special occasions only Alcohol type: beer Patient Tobacco Use Status: Former Tobacco user Tobacco use type: Cigarette Smoked in Last 30 Days: No Use of substances other than those prescribed or required for medical reasons: No Substance Use Type: Marijuana Advance Directives: Yes Advance Directives on File: Yes Advance Directives Date on File: 07/09/21 service: No Current occupational status: disabled Physical Exam Vital Signs: Vital Signs: Last Vital Signs Temp 98.1 F 04/19/22 23:40 Pulse 108 H 04/19/22 23:40 Resp 18 04/19/22 23:40 BP 159/71 H 04/19/22 23:40 Pulse Ox 95 04/19/22 23:40 O2 Del Method 04/19/22 23:40 O2 Flow Rate 4 04/19/22 23:40 BMI result Body Mass Index 29.2 Patient with slight tachycardia. Appearance: Alert.? Oriented X3.? No acute distress.? Head: Normocephalic, atraumatic, no step-offs or deformities Eyes: Pupils equal, round and reactive to light.? Neck: Normal inspection.? Neck supple.? CVS: Normal heart rate and rhythm.? Pulses normal.? Respiratory: No respiratory distress.? Breath sounds normal.? Abdomen: Soft and nontender.? Skin: Skin warm and dry.? Normal skin color.? Normal skin turgor.? Extremities: No lower extremity edema.? No calf ttp. 5/5 strength to bilateral upper and lower extremities + pain with range of motion of right shoulder. Normal left shoulder. 2+ radial pulses equal bilateral. No wrist drop. Capillary refill less than 2 seconds. Back: Patient reporting midline tenderness throughout the entire spine. With associated cervical, lumbar, thoracic paraspinous tenderness bilaterally. Neuro: Oriented X 3.? No motor deficit.? No sensory deficit. CN 2-12 intact no saddle paresthesias. Normal [id number]. Negative Romberg and pronator drift. Normal rapid alternating movement Course Reevaluation(s) Reevaluation #1: Patient's CBC with slight normocytic anemia however this appears to be around patient's baseline. No acute findings. Chemistry with elevated carbon dioxide, however around patient's baseline. No acute findings. Chemistry with no acute electrolyte abnormalities requiring emergent intervention. Troponin negative, EKG nonischemic unlikely ACS. Coags unremarkable. UA without infection. Urine toxicology negative. Ethanol negative. Patient COVID negative. Orthostatic vital signs were done on patient, she states she could not stand due to dizziness. Positive orthostatics due to symptoms. Patient is tachycardic a suspected secondary to shoulder pain. Time: 22:02 Reevaluation #2: Patient is refusing CT scan. She tells me she is in a lot of pain. Patient does have a new subcapital right humeral neck fracture. Patient placed in sling and given medicine for comfort. Patient tells me once she is in less pain she will get her CT scans done. Time: 22:04 Reevaluation #3: Patient feels unable to walk due to dizziness. She has been hydrated with 3 L. Will speak to hospitalist about symptomatic orthostasis. Although she is not hypotensive patient is still experiencing significant dizziness with ambulation and movement. CT of head with no acute intracranial findings. No acute fracture or malalignment of the cervical spine. Chronic mild compression deformity involving superior endplate of T4. Chronic minimal superior endplate compression of T1 and T2 with associated sclerosis. CT of chest with severe emphysema. 1.7 cm thyroid nodule. Cholelithiasis. Pancolonic diverticulosis. Patient with refractory dizziness with positional changes. Will give Valium. Patient has received IV hydration. I did discuss case with hospitalist, will admit for refractory orthostatic dizziness, right shoulder fracture, pain control. Time: 00:28 Medications Administered Discontinued Medications Generic Name Dose Route Start Last Admin Trade Name Freq PRN Reason Stop Dose Admin Sodium Chloride 1,000 mls @ 999 mls/hr 04/19/22 19:15 04/19/22 22:01 Ns IV 04/19/22 20:15 Infused .Q1H1M NARCISA Infusion Sodium Chloride 1,000 mls @ 999 mls/hr 04/19/22 22:15 04/19/22 23:47 Ns IV 04/19/22 23:15 Infused .Q1H1M NARCISA Infusion Sodium Chloride 1,000 mls @ 999 mls/hr 04/19/22 22:15 04/19/22 23:37 Ns IV 04/19/22 23:15 Not Given .Q1H1M NARCISA Iohexol 100 ml 04/19/22 22:41 04/19/22 22:41 Iohexol 350 Mg/Ml 100 Ml Infus..Btl IV 04/19/22 22:42 85 ml ONCE ONE Administration Meclizine HCl 25 mg 04/19/22 19:14 04/19/22 20:33 Meclizine Hcl 25 Mg Tablet PO 04/19/22 19:15 25 mg ONCE ONE Administration Morphine Sulfate 4 mg 04/19/22 22:04 04/19/22 22:16 Morphine Sulfate 4 Mg/Ml Cartridge IVPUSH 04/19/22 22:05 4 mg ONCE ONE Administration Protocol Ondansetron HCl 4 mg 04/19/22 22:04 04/19/22 22:17 Ondansetron Hcl 4 Mg/2 Ml Vial IVPUSH 04/19/22 22:05 4 mg ONCE ONE Administration Medical Decision Making Medical Decision Making [facility] Narrative: 1945 66-year-old female presents status post fall due to dizziness. Has been reporting dizziness like room spinning for the past few weeks on resolving. GCS 15. NIH stroke scale 0. Physical exam head normocephalic, atraumatic. Neuro nonfocal. Regular rate and rhythm. Lungs clear. Abdomen soft nontender nondistended. Patient reports pain with range of motion of right shoulder. Neurovascularly intact. Patient reports diffuse pain throughout entire spine with paraspinous tenderness bilaterally. Concerns for possible fractures. Will rule out traumatic injuries to chest, abdomen, pelvis, neck, head. No signs of flail chest or pneumothorax. Likely vertigo causing patient to fall. Cerebellar function intact I do not suspect posterior stroke, unlikely stroke. Will rule out rhabdo orthostatic hypotension Plan labs, imaging, urine. Will obtain orthostatic vital signs. Will obtain CPK to rule out rhabdo Differential Diagnosis Differential Diagnoses: The differential diagnosis associated with the presentation includes Concerns for possible fractures. Will rule out traumatic injuries to chest, abdomen, pelvis, neck, head. No signs of flail chest or pneumothorax. Likely vertigo causing patient to fall. Cerebellar function intact I do not suspect posterior stroke, unlikely stroke. Will rule out rhabdo orthostatic hypotension Admission/Observation Consideration of admission/observation: Escalation of care including admission/observation considered Consult Healthcare Provider Management of the patient was discussed with: Hospitalist Lab Data [facility] Lab Attestation statement: I reviewed the patient's lab results. 04/19/22 19:31 04/19/22 19:31 Labs: Lab Results 04/19/22 04/19/22 04/19/22 Range/Units 19:31 19:31 19:31 WBC 7.3 (4.8-10.8) X10*3/uL RBC 3.96 L (4.20-5.50) X10*6/uL Hgb 10.7 L (12.0-16.0) g/dl Hct 34.7 L (37.0-47.0) % MCV 87.6 (80.0-98.0) fL MCH 27.0 (27.0-33.0) pg MCHC 30.8 L (31.0-35.0) g/dl RDW 16.7 H (11.0-16.0) % Plt Count 326 (160-400) X10*3/uL MPV 8.9 L (9.4-12.3) fL Immature Gran % (Auto) 0.4 (0.0-0.4) % Neut % (Auto) 79.6 H (45-73) % Lymph % (Auto) 12.5 L (20-40) % [place] % (Auto) 5.9 (2-11) % Eos % (Auto) 1.2 (0-4) % Baso % (Auto) 0.4 (0-2) % Lymph # (Auto) 0.9 L (1.2-4.9) X10*3/uL [place] # (Auto) 0.4 (0.1-1.2) X10*3/uL Eos # (Auto) 0.1 (0.0-0.4) X10*3/uL Baso # (Auto) 0.0 (0.0-0.2) X10*3/uL Abs Immat Gran (auto) 0.03 (0.00-0.03) X10*3/uL Absolute Neuts (auto) 5.8 (2.0-8.3) x10*3/uL Absolute Nucleated RBC 0.000 (0.0-0.012) X10*3/uL Nucleated RBC % (auto) 0.0 (0.0-0.2) /100WBC PT 10.3 (10.0-13.1) SEC INR 0.9 (0.9-1.1) Sodium 143 (135-145) mmol/L Potassium 4.5 (3.3-5.1) mmol/L Chloride 99 (96-108) mmol/L Carbon Dioxide 33 H (22-29) mmol/L Anion Gap 16 (12-20) BUN 13 (9-16) mg/dL Creatinine 0.57 (0.5-1.4) mg/dL Estim Creat Clear Calc TNP Estimated GFR > 60 Random Glucose 104 (60-115) mg/dL Calcium 9.5 (8.4-10.2) mg/dL Magnesium 2.1 (1.6-2.6) mg/dL Total Bilirubin 0.3 (0.0-1.0) mg/dL AST 21 (5-31) U/L ALT 16 (0-31) U/L Alkaline Phosphatase 103 (39-117) U/L Total Creatine Kinase 56 (26-140) U/L Troponin I High Sens (<3.5-17.0) ng/L B-Natriuretic Peptide (<100) pg/mL Total Protein 7.1 (6.5-8.0) g/dL Albumin 4.2 (3.5-5.0) g/dL Lipase (8-78) U/L Urine Color Urine Appearance Urine pH (5.0-9.0) Ur Specific [place] (1.005-1.025) Urine Protein (Neg-Trace) mg/dL Urine Glucose (UA) (Negative) mg/dL Urine Ketones (Negative) mg/dL Urine Blood (Negative) Urine Nitrite (Negative) Ur Leukocyte Esterase (Negative) Urine Opiates Screen (Not Detect) Urine Fentanyl Screen (Not Detect) Ur Barbiturates Screen (Not Detect) Ur Phencyclidine Scrn (Not Detect) Ur Amphetamines Screen (Not Detect) U Benzodiazepines Scrn (Not Detect) Urine Cocaine Screen (Not Detect) U Marijuana (THC) Screen (Not Detect) Ethyl Alcohol mg/dL COVID-19 (SEAN) (Negative) COVID-19 Clin Com 04/19/22 04/19/22 04/19/22 Range/Units 19:31 19:31 19:31 WBC (4.8-10.8) X10*3/uL RBC (4.20-5.50) X10*6/uL Hgb (12.0-16.0) g/dl Hct (37.0-47.0) % MCV (80.0-98.0) fL MCH (27.0-33.0) pg MCHC (31.0-35.0) g/dl RDW (11.0-16.0) % Plt Count (160-400) X10*3/uL MPV (9.4-12.3) fL Immature Gran % (Auto) (0.0-0.4) % Neut % (Auto) (45-73) % Lymph % (Auto) (20-40) % [place] % (Auto) (2-11) % Eos % (Auto) (0-4) % Baso % (Auto) (0-2) % Lymph # (Auto) (1.2-4.9) X10*3/uL [place] # (Auto) (0.1-1.2) X10*3/uL Eos # (Auto) (0.0-0.4) X10*3/uL Baso # (Auto) (0.0-0.2) X10*3/uL Abs Immat Gran (auto) (0.00-0.03) X10*3/uL Absolute Neuts (auto) (2.0-8.3) x10*3/uL Absolute Nucleated RBC (0.0-0.012) X10*3/uL Nucleated RBC % (auto) (0.0-0.2) /100WBC PT (10.0-13.1) SEC INR (0.9-1.1) Sodium (135-145) mmol/L Potassium (3.3-5.1) mmol/L Chloride (96-108) mmol/L Carbon Dioxide (22-29) mmol/L Anion Gap (12-20) BUN (9-16) mg/dL Creatinine (0.5-1.4) mg/dL Estim Creat Clear Calc Estimated GFR Random Glucose (60-115) mg/dL Calcium (8.4-10.2) mg/dL Magnesium (1.6-2.6) mg/dL Total Bilirubin (0.0-1.0) mg/dL AST (5-31) U/L ALT (0-31) U/L Alkaline Phosphatase (39-117) U/L Total Creatine Kinase (26-140) U/L Troponin I High Sens < 3.5 (<3.5-17.0) ng/L B-Natriuretic Peptide 30 (<100) pg/mL Total Protein (6.5-8.0) g/dL Albumin (3.5-5.0) g/dL Lipase (8-78) U/L Urine Color Urine Appearance Urine pH (5.0-9.0) Ur Specific [place] (1.005-1.025) Urine Protein (Neg-Trace) mg/dL Urine Glucose (UA) (Negative) mg/dL Urine Ketones (Negative) mg/dL Urine Blood (Negative) Urine Nitrite (Negative) Ur Leukocyte Esterase (Negative) Urine Opiates Screen (Not Detect) Urine Fentanyl Screen (Not Detect) Ur Barbiturates Screen (Not Detect) Ur Phencyclidine Scrn (Not Detect) Ur Amphetamines Screen (Not Detect) U Benzodiazepines Scrn (Not Detect) Urine Cocaine Screen (Not Detect) U Marijuana (THC) Screen (Not Detect) Ethyl Alcohol mg/dL COVID-19 (SEAN) Negative (Negative) COVID-19 Clin Com See Note 04/19/22 04/19/22 04/19/22 Range/Units 19:31 21:33 21:33 WBC (4.8-10.8) X10*3/uL RBC (4.20-5.50) X10*6/uL Hgb (12.0-16.0) g/dl Hct (37.0-47.0) % MCV (80.0-98.0) fL MCH (27.0-33.0) pg MCHC (31.0-35.0) g/dl RDW (11.0-16.0) % Plt Count (160-400) X10*3/uL MPV (9.4-12.3) fL Immature Gran % (Auto) (0.0-0.4) % Neut % (Auto) (45-73) % Lymph % (Auto) (20-40) % [place] % (Auto) (2-11) % Eos % (Auto) (0-4) % Baso % (Auto) (0-2) % Lymph # (Auto) (1.2-4.9) X10*3/uL [place] # (Auto) (0.1-1.2) X10*3/uL Eos # (Auto) (0.0-0.4) X10*3/uL Baso # (Auto) (0.0-0.2) X10*3/uL Abs Immat Gran (auto) (0.00-0.03) X10*3/uL Absolute Neuts (auto) (2.0-8.3) x10*3/uL Absolute Nucleated RBC (0.0-0.012) X10*3/uL Nucleated RBC % (auto) (0.0-0.2) /100WBC PT (10.0-13.1) SEC INR (0.9-1.1) Sodium (135-145) mmol/L Potassium (3.3-5.1) mmol/L Chloride (96-108) mmol/L Carbon Dioxide (22-29) mmol/L Anion Gap (12-20) BUN (9-16) mg/dL Creatinine (0.5-1.4) mg/dL Estim Creat Clear Calc Estimated GFR Random Glucose (60-115) mg/dL Calcium (8.4-10.2) mg/dL Magnesium (1.6-2.6) mg/dL Total Bilirubin (0.0-1.0) mg/dL AST (5-31) U/L ALT (0-31) U/L Alkaline Phosphatase (39-117) U/L Total Creatine Kinase (26-140) U/L Troponin I High Sens (<3.5-17.0) ng/L B-Natriuretic Peptide (<100) pg/mL Total Protein (6.5-8.0) g/dL Albumin (3.5-5.0) g/dL Lipase 13 (8-78) U/L Urine Color Yellow Urine Appearance Clear Urine pH 6.0 (5.0-9.0) Ur Specific [place] 1.015 (1.005-1.025) Urine Protein Trace (Neg-Trace) mg/dL Urine Glucose (UA) Negative (Negative) mg/dL Urine Ketones 40 (Negative) mg/dL Urine Blood Negative (Negative) Urine Nitrite Negative (Negative) Ur Leukocyte Esterase Negative (Negative) Urine Opiates Screen Not Detected (Not Detect) Urine Fentanyl Screen Not Detected (Not Detect) Ur Barbiturates Screen Not Detected (Not Detect) Ur Phencyclidine Scrn Not Detected (Not Detect) Ur Amphetamines Screen Not Detected (Not Detect) U Benzodiazepines Scrn Not Detected (Not Detect) Urine Cocaine Screen Not Detected (Not Detect) U Marijuana (THC) Screen Not Detected (Not Detect) Ethyl Alcohol < 10 mg/dL COVID-19 (SEAN) (Negative) COVID-19 Clin Com Independent Interpretation I performed an independent interpretation of an: Plain X-Ray (XR/XR shoulder RT min 2V IMPRESSION: Subcapital right humeral neck fracture. This critical result was discussed with GABRIELA Hagan at 9:05 PM on the day of the and it was ascertained that the content and urgency of the report was understood at the time of direct communication.) and CT Scan ( CT/CT abdomen pelvis w IV con IMPRESSION: * No evidence of acute traumatic visceral injury within the chest, abdomen or pelvis. * There are mild superior endplate compression deformities at T2-T4 and microtrabecular impaction near the superior endplate of L4. The thoracic spine fractures were segundo) Radiology Impression Discussion of test interpretation with radiology: I have reviewed the radiologist's reading. Core Measures AMI core measures followed: Yes Measure exclusions: not indicated Critical Care Time Critical Care Time Critical Care Time: No Discharge Plan Discharge Clinical Impression: Benign paroxysmal positional vertigo, Fall, Orthostatic dizziness, Fracture of neck of humerus, Thyroid nodule, Compression fracture of thoracic vertebra Patient Disposition: Admitted As Inpatient
[2022-04-19 19:37] LABS: MANUAL DIFF FLAG NO
[2022-04-19 19:40] LABS: Basophils Percent Auto 0.4 % (0-2); Eosinophils Absolute Auto 0.1 X10*3/uL (0.0-0.4); Eosinophils Percent Auto 1.2 % (0-4); Hematocrit 34.7 % (37.0-47.0); Hemoglobin 10.7 g/dl (12.0-16.0); Imm Gran Abs Auto 0.03 X10*3/uL (0.00-0.03); Imm Gran Pct Auto 0.4 % (0.0-0.4); Lymphocytes Absolute Auto 0.9 X10*3/uL (1.2-4.9); Lymphocytes Percent Auto 12.5 % (20-40); Mean Corpuscular HGB Conc 30.8 g/dl (31.0-35.0); Mean Corpuscular Volume 87.6 fL (80.0-98.0); Mean Platelet Volume 8.9 fL (9.4-12.3); Monocytes Absolute Auto 0.4 X10*3/uL (0.1-1.2); Monocytes Percent Auto 5.9 % (2-11); Neutrophils Absolute Auto 5.8 x10*3/uL (2.0-8.3); Neutrophils Percent Auto 79.6 % (45-73); Platelet Count 326 X10*3/uL (160-400); Red Blood Count 3.96 X10*6/uL (4.20-5.50); Red Cell Distribution Width 16.7 % (11.0-16.0); White Blood Count 7.3 X10*3/uL (4.8-10.8)
[2022-04-19 19:45] LABS: INTERNATIONAL NORM RATIO 0.9 (0.9-1.1); Prothrombin Time 10.3 SEC (10.0-13.1)
[2022-04-19 19:59] LABS: COVID-19 Test Negative (Negative); IDNOW Serial# 08D9AD1C
[2022-04-19 20:00] LABS: Alanine Aminotransferase 16 U/L (0-31); Albumin Level 4.2 g/dL (3.5-5.0); Alkaline Phosphatase 103 U/L (39-117); Anion Gap 16 (12-20); Aspartate Amino Transferase 21 U/L (5-31); B Type Natriuretic Peptide 30 pg/mL (<100); Bilirubin Total 0.3 mg/dL (0.0-1.0); Blood Urea Nitrogen 13 mg/dL (9-16); Calcium 9.5 mg/dL (8.4-10.2); Carbon Dioxide 33 mmol/L (22-29); Chloride 99 mmol/L (96-108); Estimated Glomerular Filt Rate > 60; Glucose Random 104 mg/dL (60-115); Magnesium 2.1 mg/dL (1.6-2.6); Potassium 4.5 mmol/L (3.3-5.1); Sodium 143 mmol/L (135-145); Total Protein 7.1 g/dL (6.5-8.0); Troponin-I High Sensitivity < 3.5 ng/L (<3.5-17.0)
[2022-04-19 20:04] LABS: Ethanol < 10 mg/dL; Lipase 13 U/L (8-78)
[2022-04-19 20:10] VITALS: BP 180/90; PULSE 110; BMI 29.2
[2022-04-19] MEDS: 0.9 % Sodium Chloride 1,000 ML 999 ML IV ×2 (20:29→22:46)
[2022-04-19] MEDS: Meclizine HCl 25 MG TABLET PO (20:33)
--- NOTE | 2022-04-19 21:32 | PHA.MEDREC ---
Pharmacy Consult ? Medication Reconciliation Pharmacy has completed the medication reconciliation.
[2022-04-19 21:40] LABS: Appearance Urine Clear; Color Urine Yellow; Glucose Urine UA Negative (Negative); Leukocyte Esterase Urine Negative (Negative); Nitrite Urine Negative (Negative); Specific Gravity - Urine 1.015 (1.005-1.025); Urine Blood Negative (Negative); Urine Ketones 40 mg/dL (Negative); Urine Protein Trace mg/dL (Neg-Trace)
[2022-04-19 21:51] LABS: Amphetamine Screen Urine Not Detected (Not Detect); Barbiturates, Urine Not Detected (Not Detect); Benzodiazepines Screen Urine Not Detected (Not Detect); Cannabinoid Screen Urine Not Detected (Not Detect); Cocaine Screen Urine Not Detected (Not Detect); Fentanyl, urine Not Detected (Not Detect); Opiate Screen Urine Not Detected (Not Detect); Phencyclidine Screen Urine Not Detected (Not Detect)
[2022-04-19 22:16] VITALS: RESP 20
[2022-04-19] MEDS: Morphine Sulfate 4 MG/ML CARTRIDGE IVPUSH (22:16)
[2022-04-19] MEDS: ondansetron HCL 4 MG/2 ML VIAL IVPUSH (22:17)
--- NOTE | 2022-04-19 22:30 | PC.NURSE ---
Pt A&Ox3, reports feeling dizzy for over a week. Reports falling in the bathroom 45 min prior to arrival, denies LOC/head strike, reports 9/10 lower back pain. Pt refused to stand up for orthostatic vitals signs, stated she couldn't stand. IV line placed. Pt refused CT scan d/t requesting pain meds, provider Nanci Turner notified, new orders placed and given as documented. Pt back from CT scan, ambulated to bedside commode independently. Urine sample collected and sent to lab.
[2022-04-19] MEDS: iohexoL 350 MG/ML 100 ML INFUS..BTL IV (22:41)
[2022-04-19 23:40] VITALS: BP 159/71; PULSE 108; RESP 18; TEMP 36.7; O2SAT 95
[2022-04-20] VITALS (14 sets, daily range): BP systolic 123–156; BP diastolic 50–60; PULSE 71–108; RESP 14–24; TEMP 36.6–37.3; O2SAT 91–100
--- NOTE | 2022-04-20 01:00 | PC.NURSE ---
Addendum entered by Zaira Barajas 04/20/22 01:19: Denies auditory/visual hallucinations. Original Note: Pt awake speaking out loud and laughing, Pt states I'm talking to my holy spirit .
[2022-04-20] MEDS: diazePAM 2 MG TABLET PO (01:17)
--- NOTE | 2022-04-20 02:11 | PM.IMHP ---
History of Present Illness Date of Service: 04/20/22 Chief Complaint: Dizziness This is a 66-year-old female with pertinent history of chronic hypoxemic respiratory failure due to COPD on baseline 4 L supplemental oxygen, mood disorder, essential hypertension presents to the emergency department for evaluation of fall after an episode of vertigo. Patient states she has been having intermittent vertigo, worse with head movement and activity that started 2 weeks ago. She was prescribed meclizine by her primary care physician but states her symptoms havent resolved. Does have associated nausea. Prior to presentation, patient was in her bottom and she tried to get up. She had a sensation of room spinning and fell. No loss of consciousness. Reports back pain since the fall and difficulty ambulating. No jerking movement of extremities, tongue bite, urinary or bowel incontinence. Patient denies fever, chills, chest discomfort, palpitations, shortness of breath, abdominal pain, changes in urinary or bowel habits. No tinnitus, hearing deficits, preceding viral symptoms. Review of Systems Constitutional: Constitutional: Reports no additional constitutional complaints ENT: Reports vertigo Cardiovascular: Cardiovascular: Reports no additional cardiovascular complaints Respiratory: Respiratory: Reports no additional respiratory complaints Gastrointestinal: Gastrointestinal: Reports no additional gastrointestinal complaints Genitourinary: Genitourinary: Reports no additional female genitourinary complaints Neurologic: Reports vertigo [facility] Medical History (Updated 04/20/22 @ 02:28 by Samantha Hoang MD) Acute and chronic respiratory failure with hypoxia Anxiety Asthma Bronchitis Chronic lung disease Chronic obstructive pulmonary disease with hypoxia Chronic respiratory failure COPD (chronic obstructive pulmonary disease) Diverticulitis Dizziness Emphysema lung Hypertension Otitis media Pulmonary abscess Vertigo Family History Other No family history of coronary artery disease Surgical History History of breast surgery History of laparotomy Social History Household Members: Spouse Housing: Other Housing Other:: Hotel Do you presently have visiting nurse or other home services: No Alcohol intake: current Alcohol intake frequency: holidays/special occasions only Alcohol type: beer Patient Tobacco Use Status: Former Tobacco user Tobacco use type: Cigarette Smoked in Last 30 Days: No Use of substances other than those prescribed or required for medical reasons: No Substance Use Type: Marijuana Advance Directives: Yes Advance Directives on File: Yes Advance Directives Date on File: 07/09/21 service: No Current occupational status: disabled Meds Allergies Allergy/AdvReac Type Severity Reaction Status Date / Time tramadol [TRAMADOL] Allergy Severe SWEATING, Verified 04/16/22 23:48 VOMITING, vomiting Sulfa (Sulfonamide Allergy Unknown Verified 04/16/22 23:48 Antibiotics) amoxicillin [From AUGMENTIN] AdvReac Severe CONSTIPATIO Verified 04/16/22 23:48 N clavulanic acid AdvReac Severe CONSTIPATIO Verified 04/16/22 23:48 [From AUGMENTIN] N codeine [CODEINE] AdvReac Severe NAUSEA Verified 04/16/22 23:48 levofloxacin [From LEVAQUIN] AdvReac Severe CONSTIPATIO Verified 04/16/22 23:48 N Active Medications: Current Medications Pharmacy Consult (Consult Rx Perform Med Rec) 1 each MISCELLANE ONCE PRN PRN Reason: Consult order Home Medications Medication Instructions Recorded Confirmed Last Taken Type albuterol sulfate 2.5 mg/3 mL 1 vial inhalation Q6H 10/04/20 04/19/22 01/21/22 History (0.083 %) solution for nebulization [id number] 2 tab PO Q12H PRN Migraine Headache 10/04/20 04/19/22 01/21/22 History 50 mg-325 mg-40 mg tablet diltiazem HCl 360 mg capsule,24 1 cap PO DAILY 07/08/21 04/19/22 01/21/22 History hr,extended release lorazepam 2 mg tablet 1 tab PO Q6H PRN anxiety 07/08/21 04/19/22 04/19/22 History ipratropium bromide 0.02 % 2.5 ml inhalation Q6H 09/25/21 04/19/22 01/21/22 History solution for inhalation ipratropium bromide 17 2 puff inhalation QID 04/19/22 04/19/22 Unknown History mcg/actuation HFA aerosol inhaler (Atrovent HFA) meclizine 25 mg tablet 1 tab PO TID PRN dizziness 04/19/22 04/19/22 Unknown History Physical Exam Vital Signs and Narrative: Vital Signs: Last Vital Signs Temp 98.1 F 04/19/22 23:40 Pulse 108 H 04/19/22 23:40 Resp 18 04/19/22 23:40 BP 159/71 H 04/19/22 23:40 Pulse Ox 95 04/19/22 23:40 O2 Del Method 04/19/22 23:40 O2 Flow Rate 4 04/19/22 23:40 BMI result Body Mass Index 29.2 Middle-aged female lying in bed in mild distress on 5 L supplemental oxygen Neck supple, no JVD Regular rate and rhythm, S1-S2 heard Regular breath sounds bilaterally, no wheezing or crackles appreciated Abdomen soft nontender, no guarding, no rigidity Patient is awake, alert and oriented to self, place, time and person ; no focal motor deficit ; no nystagmus, no skew skew deviation, head impulse testing untestable Psych: Normal mood No pedal edema Results Labs 04/19/22 19:31 04/19/22 19:31 Labs: Laboratory Results - last 24 hr 04/19/22 04/19/22 04/19/22 19:31 19:31 19:31 MCV 87.6 MCH 27.0 MCHC 30.8 L RDW 16.7 H Plt Count 326 MPV 8.9 L Immature Gran % (Auto) 0.4 Neut % (Auto) 79.6 H Lymph % (Auto) 12.5 L Ida % (Auto) 5.9 Eos % (Auto) 1.2 Baso % (Auto) 0.4 Lymph # (Auto) 0.9 L Ida # (Auto) 0.4 Eos # (Auto) 0.1 Baso # (Auto) 0.0 Abs Immat Gran (auto) 0.03 Absolute Neuts (auto) 5.8 Absolute Nucleated RBC 0.000 Nucleated RBC % (auto) 0.0 PT 10.3 INR 0.9 Anion Gap 16 Estim Creat Clear Calc TNP Estimated GFR > 60 Random Glucose 104 Calcium 9.5 Magnesium 2.1 Total Bilirubin 0.3 AST 21 ALT 16 Alkaline Phosphatase 103 Total Creatine Kinase 56 Troponin I High Sens B-Natriuretic Peptide Total Protein 7.1 Albumin 4.2 Lipase Urine Color Urine Appearance Urine pH Ur Specific [place] Urine Protein Urine Glucose (UA) Urine Ketones Urine Blood Urine Nitrite Ur Leukocyte Esterase Urine Opiates Screen Urine Fentanyl Screen Ur Barbiturates Screen Ur Phencyclidine Scrn Ur Amphetamines Screen U Benzodiazepines Scrn Urine Cocaine Screen U Marijuana (THC) Screen Ethyl Alcohol COVID-19 (SEAN) COVID-19 [email or web address] Com 04/19/22 04/19/22 04/19/22 19:31 19:31 19:31 MCV MCH MCHC RDW Plt Count MPV Immature Gran % (Auto) Neut % (Auto) Lymph % (Auto) Ida % (Auto) Eos % (Auto) Baso % (Auto) Lymph # (Auto) Ida # (Auto) Eos # (Auto) Baso # (Auto) Abs Immat Gran (auto) Absolute Neuts (auto) Absolute Nucleated RBC Nucleated RBC % (auto) PT INR Anion Gap Estim Creat Clear Calc Estimated GFR Random Glucose Calcium Magnesium Total Bilirubin AST ALT Alkaline Phosphatase Total Creatine Kinase Troponin I High Sens < 3.5 B-Natriuretic Peptide 30 Total Protein Albumin Lipase Urine Color Urine Appearance Urine pH Ur Specific [place] Urine Protein Urine Glucose (UA) Urine Ketones Urine Blood Urine Nitrite Ur Leukocyte Esterase Urine Opiates Screen Urine Fentanyl Screen Ur Barbiturates Screen Ur Phencyclidine Scrn Ur Amphetamines Screen U Benzodiazepines Scrn Urine Cocaine Screen U Marijuana (THC) Screen Ethyl Alcohol COVID-19 (SEAN) Negative COVID-19 [email or web address] See Note 04/19/22 04/19/22 04/19/22 19:31 21:33 21:33 MCV MCH MCHC RDW Plt Count MPV Immature Gran % (Auto) Neut % (Auto) Lymph % (Auto) Ida % (Auto) Eos % (Auto) Baso % (Auto) Lymph # (Auto) Ida # (Auto) Eos # (Auto) Baso # (Auto) Abs Immat Gran (auto) Absolute Neuts (auto) Absolute Nucleated RBC Nucleated RBC % (auto) PT INR Anion Gap Estim Creat Clear Calc Estimated GFR Random Glucose Calcium Magnesium Total Bilirubin AST ALT Alkaline Phosphatase Total Creatine Kinase Troponin I High Sens B-Natriuretic Peptide Total Protein Albumin Lipase 13 Urine Color Yellow Urine Appearance Clear Urine pH 6.0 Ur Specific [place] 1.015 Urine Protein Trace Urine Glucose (UA) Negative Urine Ketones 40 Urine Blood Negative Urine Nitrite Negative Ur Leukocyte Esterase Negative Urine Opiates Screen Not Detected Urine Fentanyl Screen Not Detected Ur Barbiturates Screen Not Detected Ur Phencyclidine Scrn Not Detected Ur Amphetamines Screen Not Detected U Benzodiazepines Scrn Not Detected Urine Cocaine Screen Not Detected U Marijuana (THC) Screen Not Detected Ethyl Alcohol < 10 COVID-19 (SEAN) COVID-19 Clin Com Imaging Radiologist's Impressions: Impressions Shoulder X-Ray 04/19/22 19:56 IMPRESSION: Subcapital right humeral neck fracture. This critical result was discussed with GABRIELA Hagan at 9:05 PM on the day of the and it was ascertained that the content and urgency of the report was understood at the time of direct communication. Abdomen/Pelvis CT 04/19/22 22:40 IMPRESSION: * No evidence of acute traumatic visceral injury within the chest, abdomen or pelvis. * There are mild superior endplate compression deformities at T2-T4 and microtrabecular impaction near the superior endplate of L4. The thoracic spine fractures were faintly evident in March 2022, but show increased sclerosis since then. The fracture at L4 also likely sustained then as well. * Severe emphysema. * There are a few calcified pleural plaques along the anterior right costophrenic sulcus which are unchanged since December 2021, but new since July 2021. These are nonspecific and can be seen in the setting of exudative pleural effusion. * There is a 1.7 cm right thyroid nodule. * Cholelithiasis. * Pancolonic diverticulosis without evidence of diverticulitis. * There are 2 simple appearing cysts in the right ovary which are slightly increasing in size over the years. Recommend follow-up pelvic ultrasound in 6-[address] 04/19/22 22:40 IMPRESSION: * No acute intracranial findings. * No acute fracture or malalignment of the cervical spine. * Chronic mild compression deformity involving the superior endplate of T4 resulting in 10-20% height loss anteriorly with out significant height loss posteriorly. This was faintly evident on the prior CT chest on 03/10/2022, however there is increased sclerosis on the current exam. * Chronic minimal superior endplate compression deformities along the anterior endplates of T1 and T2 with associated sclerosis, presumably also representing subtle fractures from the same time. Chest CT 04/19/22 22:40 IMPRESSION: * No evidence of acute traumatic visceral injury within the chest, abdomen or pelvis. * There are mild superior endplate compression deformities at T2-T4 and microtrabecular impaction near the superior endplate of L4. The thoracic spine fractures were faintly evident in March 2022, but show increased sclerosis since then. The fracture at L4 also likely sustained then as well. * Severe emphysema. * There are a few calcified pleural plaques along the anterior right costophrenic sulcus which are unchanged since December 2021, but new since July 2021. These are nonspecific and can be seen in the setting of exudative pleural effusion. * There is a 1.7 cm right thyroid nodule. * Cholelithiasis. * Pancolonic diverticulosis without evidence of diverticulitis. * There are 2 simple appearing cysts in the right ovary which are slightly increasing in size over the years. Recommend follow-up pelvic ultrasound in 6-[address] 04/19/22 22:40 IMPRESSION: * No acute intracranial findings. * No acute fracture or malalignment of the cervical spine. * Chronic mild compression deformity involving the superior endplate of T4 resulting in 10-20% height loss anteriorly with out significant height loss posteriorly. This was faintly evident on the prior CT chest on 03/10/2022, however there is increased sclerosis on the current exam. * Chronic minimal superior endplate compression deformities along the anterior endplates of T1 and T2 with associated sclerosis, presumably also representing subtle fractures from the same time. Assessment and Plan (1) Vertigo: Status: Acute Plan This is a 66-year-old female with pertinent history of chronic hypoxemic respiratory failure due to COPD on baseline 4 L supplemental oxygen, mood disorder, essential hypertension presents to the emergency department for evaluation of fall after an episode of vertigo. #. Vertigo: HINTS exam as above. Obtaining MRI to rule out central etiology. Symptomatic treatment with meclizine p.r.n. #. Intractable back pain after fall: Imaging with compression deformities at T2-T4 and fracture at L4. Analgesics p.r.n.. Consulting Physical therapy to evaluate and treat #. Right subcapital humeral neck fracture: Due to fall. Symptomatic and conservative management. #.? Chronic hypoxemic respiratory failure secondary to COPD:? On 5 L baseline home O2.? No exacerbation on admission.? Continue home inhaler #.? Mood disorder: On lorazepam #.? Essential hypertension:? On diltiazem #.? Chronic normocytic anemia:? Hemoglobin above transfusion threshold Med rec pending DVT prophylaxis:? Lovenox 40 mg daily Full code Cardiac diet Time Spent With Patient Time: Total time managing care of this patient today ____ minutes. Quality Stroke Does the patient have a stroke diagnosis?: No VTE Prior VTE?: No VTE Risk Level:: Medical - moderate - high VTE Device Contraindication: Treatment Not Indicated VTE Drug Contraindication: N/A - Med Ordered
[2022-04-20] MEDS: Morphine Sulfate 2 MG/ML CARTRIDGE IVPUSH (02:46)
[2022-04-20] MEDS: Enoxaparin Sodium 40 MG/0.4 ML SYRINGE SUBCUT (02:46)
--- NOTE | 2022-04-20 03:55 | PC.NURSE ---
Pt awake, reports being anxious, medicated as documented.
[2022-04-20] MEDS: LORazepam 1 MG TABLET 2 MG PO ×2 (03:58→16:12)
--- NOTE | 2022-04-20 05:57 | PC.NURSE ---
Pt requesting breathing tx, provider Dr. Gerardo notified. New breathing tx ordered. Respiratory therapist at bedside.
[2022-04-20 06:20] LABS: MANUAL DIFF FLAG NO
[2022-04-20 06:29] LABS: Basophils Percent Auto 0.3 % (0-2); Eosinophils Absolute Auto 0.2 X10*3/uL (0.0-0.4); Eosinophils Percent Auto 1.8 % (0-4); Hematocrit 35.4 % (37.0-47.0); Hemoglobin 10.7 g/dl (12.0-16.0); Imm Gran Abs Auto 0.03 X10*3/uL (0.00-0.03); Imm Gran Pct Auto 0.3 % (0.0-0.4); Lymphocytes Absolute Auto 1.1 X10*3/uL (1.2-4.9); Lymphocytes Percent Auto 9.7 % (20-40); Mean Corpuscular HGB Conc 30.2 g/dl (31.0-35.0); Mean Corpuscular Hemoglobin 27.1 pg (27.0-33.0); Mean Corpuscular Volume 89.6 fL (80.0-98.0); Mean Platelet Volume 9.9 fL (9.4-12.3); Monocytes Absolute Auto 0.6 X10*3/uL (0.1-1.2); Monocytes Percent Auto 5.7 % (2-11); Neutrophils Absolute Auto 9.2 x10*3/uL (2.0-8.3); Neutrophils Percent Auto 82.2 % (45-73); Platelet Count 345 X10*3/uL (160-400); Red Blood Count 3.95 X10*6/uL (4.20-5.50); Red Cell Distribution Width 16.9 % (11.0-16.0); White Blood Count 11.1 X10*3/uL (4.8-10.8)
--- NOTE | 2022-04-20 06:38 | PC.NURSE ---
Pt reporting increase pain, states I can't take this pain anymore . Dr. Gerardo notified. New order given. Pt refusing to put sling on to R arm.
[2022-04-20 06:42] LABS: Anion Gap 13 (12-20); Blood Urea Nitrogen 8 mg/dL (9-16); Carbon Dioxide 37 mmol/L (22-29); Chloride 97 mmol/L (96-108); Creatinine Clr Calc Pharmacy 76.2; Estimated Glomerular Filt Rate > 60; Glucose Random 98 mg/dL (60-115); Potassium 3.8 mmol/L (3.3-5.1); Sodium 143 mmol/L (135-145)
[2022-04-20] MEDS: HYDROmorphone HCl 0.5 MG/0.5 ML SYRINGE IVPUSH ×2 (06:57→21:19)
[2022-04-20] MEDS: 0.9 % Sodium Chloride Flush 3 ML SYRINGE IVFLUSH ×2 (09:50→15:41)
--- NOTE | 2022-04-20 09:50 | PC.NURSE ---
this nurse took over care for this patient at 915 am, patient currently sleeping, per tech pt had been complaining of a migraine wanting medication- this nurse notified dr. zhang- no new orders given at this time. pt currently on 5L NC, lungs clear/diminished, vitals were stable, pt oob to bedside commode as needed, call campos within reach, will continue to monitor.
--- NOTE | 2022-04-20 11:04 | PC.NURSE ---
mri screening form completed with patient, pt was sleeping- woke to verbal stimulus and was angry she was woken up, pt answering questions and refused to list the surgeries she has had in the past- this was written on the mri screening form.
--- NOTE | 2022-04-20 11:36 | PC.NURSE ---
dr. zhang at bedside evaluating patient, we discussed the patient being drowsy- noted that the patient had been given narcotics earlier this am as well as valium, pt wakes to stimulus however gets angry when woken stating she didnt sleep well last night. will continue to monitor.
--- NOTE | 2022-04-20 12:42 | PM.EVENT ---
Event Note Date of Service: 04/20/22 Event Note: 66-year-old female with pertinent history of chronic hypoxemic respiratory failure due to COPD on baseline 4 L supplemental oxygen, mood disorder, essential hypertension presents to the emergency department for evaluation of fall after an episode of vertigo. Vertigo head CT neg Obtaining MRI to rule out central etiology. Symptomatic treatment with meclizine p.r.n. Intractable back pain after fall Imaging with compression deformities at T2-T4 and fracture at L4.? Analgesics p.r.n..? Physical therapy to evaluate and treat Right subcapital humeral neck fracture Due to fall.? Symptomatic and conservative management. ortho consult Chronic hypoxemic respiratory failure secondary to COPD On 5 L baseline home O2, although in the ED she is 100% on 3Lnc? No exacerbation on admission.? Continue home inhaler Mood disorder lorazepam Essential hypertension diltiazem Chronic normocytic anemia Hemoglobin above transfusion threshold DVT prophylaxis:? Lovenox [address] Ford Full code Time Spent With Patient Time: Total time managing care of this patient today ____ minutes.
--- NOTE | 2022-04-20 13:30 | PC.NURSE ---
pt to MRI
[2022-04-20] MEDS: Butalb/Acetamin/Caff 50/325/40 TABLET 1 TAB PO ×2 (14:20→21:01)
--- NOTE | 2022-04-20 14:22 | PC.NURSE ---
pt c/o migraine medicated with 1 fioricet as ordered, pt angry she only has 1 ordered and stated it isnt going to help her- this nurse notified dr. zhang, will continue to monitor
--- NOTE | 2022-04-20 14:37 | PC.NURSE ---
report given to floor nurse, will notify charge
--- NOTE | 2022-04-20 15:37 | PC.NURSE ---
patient refuses to wear sling
[2022-04-20] MEDS: Acetaminophen 325 MG TABLET 650 MG PO (16:13)
--- NOTE | 2022-04-20 17:20 | PC.NURSE ---
ok for patient to have coffee per roosevelt Meeks notified.
--- NOTE | 2022-04-20 19:34 | PC.NURSE ---
RN CLINICAL RESEARCH found patient sitting in bed with bottles of meds from home ,all meds were sent to pharmacy,patient denies taking any of her home meds.
[2022-04-21] VITALS (9 sets, daily range): BP systolic 133–164; BP diastolic 58–93; PULSE 87–119; RESP 16–24; TEMP 36.2–37; O2SAT 90–97
--- NOTE | 2022-04-21 | ECG_ITS ---
Test Reason : TACHYCARDIA Blood Pressure : / mmHG Vent. Rate : 120 BPM Atrial Rate : 120 BPM P-R Int : 154 ms QRS Dur : 078 ms QT Int : 308 ms P-R-T Axes : 079 037 072 degrees QTc Int : 435 ms Sinus tachycardia Otherwise normal ECG When compared with ECG of 19-APR-2022 19:36, No significant change was found Referred By: Milla White Electronically Signed By:Jose Petersen
[2022-04-21] MEDS: LORazepam 1 MG TABLET 2 MG PO ×4 (00:08→18:35)
[2022-04-21] MEDS: HYDROmorphone HCl 0.5 MG/0.5 ML SYRINGE IVPUSH ×3 (01:55→10:22)
[2022-04-21] MEDS: Enoxaparin Sodium 40 MG/0.4 ML SYRINGE SUBCUT (01:55)
--- NOTE | 2022-04-21 09:29 | PM.CNOR ---
History of Present Illness HPI Consult date: 04/21/22 Chief complaint: dizziness Narrative: This is a 66-year-old female with pertinent history of chronic hypoxemic respiratory failure due to COPD on baseline 4 L supplemental oxygen, mood disorder, essential hypertension presents to the emergency department for evaluation of fall after an episode of vertigo.? She was admitted to the medical service and orthopedics was consulted for further evaluation of left shoulder proximal humerus fracture as a result ofh er fall. Review of Systems Review of Systems: per [facility] Past Medical History Medical History Acute and chronic respiratory failure with hypoxia Anxiety Asthma Bronchitis Chronic lung disease Chronic obstructive pulmonary disease with hypoxia Chronic respiratory failure COPD (chronic obstructive pulmonary disease) Diverticulitis Dizziness Emphysema lung Hypertension Otitis media Pulmonary abscess Vertigo Family History Family History Other No family history of coronary artery disease Surgical History Surgical History History of breast surgery History of laparotomy Social History Social History Household Members: Spouse Housing: Other Housing Other:: hotel Do you presently have visiting nurse or other home services: No Alcohol intake: current Alcohol intake frequency: holidays/special occasions only Alcohol type: beer Patient Tobacco Use Status: Former Tobacco user Tobacco use type: Cigarette Substance Use Type: Marijuana Advance Directives Date on File: 07/09/21 service: No Current occupational status: disabled Meds Allergies Allergy/AdvReac Type Severity Reaction Status Date / Time tramadol [TRAMADOL] Allergy Severe SWEATING, Verified 04/16/22 23:48 VOMITING, vomiting Sulfa (Sulfonamide Allergy Unknown Verified 04/16/22 23:48 Antibiotics) amoxicillin [From AUGMENTIN] AdvReac Severe CONSTIPATIO Verified 04/16/22 23:48 N clavulanic acid AdvReac Severe CONSTIPATIO Verified 04/16/22 23:48 [From AUGMENTIN] N codeine [CODEINE] AdvReac Severe NAUSEA Verified 04/16/22 23:48 levofloxacin [From LEVAQUIN] AdvReac Severe CONSTIPATIO Verified 04/16/22 23:48 N Active Medications: Current Medications Acetaminophen (Acetaminophen 325 Mg Tablet) 650 mg PO Q6H PRN PRN Reason: Pain, Mild (Pain Scale 1-3) Last Admin: 04/20/22 16:13 Dose: 650 mg Acetaminophen/Butalbital/Caffeine (Butalb/Acetamin/Caff 50/325/40 Tablet) 1 tab PO Q4H PRN PRN Reason: Headache Last Admin: 04/20/22 21:01 Dose: 1 tab Albuterol Sulfate (Albuterol Sulfate (0.083%) 2.5 Mg/3 Ml Vial.Neb) 2.5 mg INHALE RQ6H NARCISA Albuterol Sulfate 2.5 mg/ (Ipratropium [place] 0.5 mg) 0 mg INHALE RQ4H WHILE AWAKE [facility] Last Admin: 04/21/22 07:49 Dose: 2.5 each Albuterol Sulfate 2.5 mg/ (Ipratropium [place] 0.5 mg) 0 mg INHALE Q4H PRN PRN Reason: Wheezing Diltiazem HCl (Diltiazem Hcl Cd 180 Mg Cap.Er.24h) 360 mg PO DAILY [facility]; Protocol Enoxaparin Sodium (Enoxaparin Sodium 40 Mg/0.4 Ml Syringe) 40 mg SUBCUT Q24H [facility] Last Admin: 04/21/22 01:55 Dose: 40 mg Hydromorphone HCl (Hydromorphone Hcl 0.5 Mg/0.5 Ml Syringe) 0.5 mg IVPUSH Q4H PRN; Protocol PRN Reason: Pain, Severe (Pain Scale 7-10) Last Admin: 04/21/22 06:39 Dose: 0.5 mg Ipratropium [place] (Ipratropium [place] 1 Puff/17 Mcg Inhaler) 2 puff INHALE RQID [facility] Last Admin: 04/21/22 07:50 Dose: Not Given Lorazepam (Lorazepam 1 Mg Tablet) 2 mg PO Q6H PRN PRN Reason: anxiety/restlessness Last Admin: 04/21/22 06:15 Dose: 2 mg Meclizine HCl (Meclizine Hcl 25 Mg Tablet) 25 mg PO Q6H PRN PRN Reason: vertigo Melatonin (Melatonin 3 Mg Tablet) 6 mg PO BEDTIME PRN PRN Reason: Insomnia Ondansetron HCl (Ondansetron Hcl 4 Mg/2 Ml Vial) 4 mg IVPUSH Q8H PRN PRN Reason: Nausea and Vomiting Pharmacy Consult (Consult Rx Perform Med Rec) 1 each MISCELLANE ONCE PRN PRN Reason: Consult order Sodium Chloride (0.9 % Sodium Chloride Flush 3 Ml Syringe) 3 ml IVFLUSH QSHIFT [facility] Last Admin: 04/21/22 00:00 Dose: 3 ml Home Medications Medication Instructions Recorded Confirmed Last Taken Type albuterol sulfate 2.5 mg/3 mL 1 vial inhalation Q6H 10/04/20 04/19/22 01/21/22 History (0.083 %) solution for nebulization [id number]-[id number] 2 tab PO Q12H PRN Migraine Headache 10/04/20 04/19/22 01/21/22 History 50 mg-325 mg-40 mg tablet diltiazem HCl 360 mg capsule,24 1 cap PO DAILY 07/08/21 04/19/22 01/21/22 History hr,extended release lorazepam 2 mg tablet 1 tab PO Q6H PRN anxiety 07/08/21 04/19/22 04/19/22 History ipratropium bromide 0.02 % 2.5 ml inhalation Q6H 09/25/21 04/19/22 01/21/22 History solution for inhalation ipratropium bromide 17 2 puff inhalation QID 04/19/22 04/19/22 Unknown History mcg/actuation HFA aerosol inhaler (Atrovent HFA) meclizine 25 mg tablet 1 tab PO TID PRN dizziness 04/19/22 04/19/22 Unknown History Physical Exam Vital Signs: Vital Signs: Last Vital Signs Temp 97.1 F 04/21/22 07:42 Pulse 110 H 04/21/22 08:20 Resp 18 04/21/22 07:42 BP 142/64 H 04/21/22 08:20 Pulse Ox 97 04/21/22 08:20 O2 Del Method 04/21/22 07:42 O2 Flow Rate 5 04/21/22 07:42 BMI result Body Mass Index 29.2 Const: General: cooperative, healthy appearing, comfortable and no acute distress Extrem: Other: Right shoulder normal to inspection. Mild Swelling and tenderness over the proximal humerus. Anterior deltoid sensation intact. Elbow and wrist ROM intact. NVI. Results Labs 04/20/22 05:30 03/15/23 05:30 Labs: H & H 04/19/22 04/20/22 Range/Units 19:31 05:30 Hgb 10.7 L 10.7 L (12.0-16.0) g/dl Hct 34.7 L 35.4 L (37.0-47.0) % Coagulation 04/19/22 Range/Units 19:31 INR 0.9 (0.9-1.1) All other labs normal. Diagnostic results Shoulder x-ray: image reviewed (xrays obtained inthe ED on 04/19: Subcapital right humeral neck fracture.) Assessment and Plan (1) Fracture of neck of humerus: Status: Acute Plan Right shoulder proximal humerus fracture -sling for comfort -pendulums and elbow ROM tid -no heavy lifting F/u with orthopedics 4 weeks for new xrays Time Spent With Patient Time: Total time managing care of this patient today ____ minutes. Procedures Date of Service Date of Service: 04/21/22
[2022-04-21] MEDS: 0.9 % Sodium Chloride Flush 3 ML SYRINGE IVFLUSH ×3 (09:40→16:21)
[2022-04-21] MEDS: dilTIAZem HCL CD 180 MG CAP.ER.24H 360 MG PO (09:56)
[2022-04-21] MEDS: Ipratropium Bromide 1 PUFF/17 MCG INHALER 2 PUFF INHALE ×2 (11:18→20:03)
[2022-04-21 11:38] LABS: Glucose, Whole Blood 157 mg/dL (60-115)
[2022-04-21] MEDS: Butalb/Acetamin/Caff 50/325/40 TABLET 1 TAB PO (11:47)
--- NOTE | 2022-04-21 12:17 | HO.PM.IMPN ---
Subjective Subjective Date of Service: 04/21/22 Interval History: seen and examined this morning follow up for back pain r/t compression fractures and right humeral neck fracture; dizziness and falls pt reports intermittent dizziness worse with moving her head denies sob or cough frequent complaints of back pain but noted to be sitting up and leaning over talking on phone without apparent discomfort Rapid response was called mid- morning for SOB, patient was found without her oxygen on. O2 sats down into the 70s, improved with oxygen, able to speak in complete sentences despite hypoxia and o2 back up to low 90s on 5L. Review of Systems Review of Systems: Yes all other systems are reviewed and are negative Constitutional Constitutional: Denies chills and Denies fever(s) Cardiovascular Cardiovascular: Denies chest pain, Denies palpitations and Denies dyspnea Respiratory Respiratory: Denies cough and Denies dyspnea Gastrointestinal Gastrointestinal: Denies abdominal pain Endocrine Endocrine: Denies palpitations Physical Exam Vital Signs: Vital Signs: Last Vital Signs Temp 97.1 F 04/21/22 07:42 Pulse 111 H 04/21/22 11:21 Resp 22 H 04/21/22 11:21 BP 142/64 H 04/21/22 08:20 Pulse Ox 97 04/21/22 08:20 O2 Del Method 04/21/22 07:42 O2 Flow Rate 5 04/21/22 07:42 BMI result Body Mass Index 29.2 Const: General: alert and awake Nutritional Appearance: overweight Resp: Effort & Inspection: normal respiratory effort, able to speak in complete sentences, no respiratory distress and no use of accessory muscles Cardio: Rate: regular rate Heart sounds: S1 normal heart sound present and S2 normal heart sound present GI: Inspection: No distended Palpation (GI): Soft to palpation Neuro: Other: grossly non focal Extrem: Other: able to move all extremities spontaneously; no tenderness on palpation of spine or anywhere in back at this time General: Yes no pedal edema Objective Data Active Medications Acetaminophen (Acetaminophen 325 Mg Tablet) 650 mg PO Q6H PRN PRN Reason: Pain, Mild (Pain Scale 1-3) Last Admin: 04/20/22 16:13 Dose: 650 mg Documented By: JARED Acetaminophen/Butalbital/Caffeine (Butalb/Acetamin/Caff 50/325/40 Tablet) 1 tab PO Q4H PRN PRN Reason: Headache Last Admin: 04/21/22 11:47 Dose: 1 tab Documented By: LÁZARO Albuterol Sulfate 2.5 mg/ (Ipratropium [place] 0.5 mg) 0 mg INHALE Q4H PRN PRN Reason: Wheezing Last Admin: 04/21/22 11:18 Dose: 2.5 each Documented By: TOBY Diltiazem HCl (Diltiazem Hcl Cd 180 Mg Cap.Er.24h) 360 mg PO DAILY [facility]; Protocol Last Admin: 04/21/22 09:56 Dose: 360 mg Documented By: LÁZARO Enoxaparin Sodium (Enoxaparin Sodium 40 Mg/0.4 Ml Syringe) 40 mg SUBCUT Q24H [facility] Last Admin: 04/21/22 01:55 Dose: 40 mg Documented By: RUSLAN Ipratropium [place] (Ipratropium [place] 1 Puff/17 Mcg Inhaler) 2 puff INHALE RQID [facility] Last Admin: 04/21/22 11:18 Dose: 2 puff Documented By: TOBY Lorazepam (Lorazepam 1 Mg Tablet) 2 mg PO Q6H PRN PRN Reason: anxiety/restlessness Last Admin: 04/21/22 11:47 Dose: 2 mg Documented By: LÁZARO Meclizine HCl (Meclizine Hcl 25 Mg Tablet) 25 mg PO Q6H PRN PRN Reason: vertigo Melatonin (Melatonin 3 Mg Tablet) 6 mg PO BEDTIME PRN PRN Reason: Insomnia Methylprednisolone Sodium Succinate (Methylprednisolone Sod Succ 40 Mg/Ml Vial) 40 mg IVPUSH Q12H [facility] Morphine Sulfate (Morphine Sulfate 2 Mg/Ml Cartridge) 2 mg IVPUSH Q4H PRN; Protocol PRN Reason: Pain, Severe (Pain Scale 7-10) Ondansetron HCl (Ondansetron Hcl 4 Mg/2 Ml Vial) 4 mg IVPUSH Q8H PRN PRN Reason: Nausea and Vomiting Pharmacy Consult (Consult Rx Perform Med Rec) 1 each MISCELLANE ONCE PRN PRN Reason: Consult order Sodium Chloride (0.9 % Sodium Chloride Flush 3 Ml Syringe) 3 ml IVFLUSH QSHIFT [facility] Last Admin: 04/21/22 09:40 Dose: 3 ml Documented By: LÁZARO Labs 04/20/22 05:30 04/20/22 05:30 Labs: Laboratory Results - last 24 hr 04/21/22 11:34 POC Glucose 157 H Assessment and Plan (1) Benign paroxysmal positional vertigo: Status: Acute (2) Chronic respiratory failure with hypoxia: Status: Acute Plan This is a 66-year-old female with pertinent history of chronic hypoxemic respiratory failure due to COPD on baseline 4 L supplemental oxygen, mood disorder, essential hypertension presents to the emergency department for evaluation of fall after an episode of vertigo. Vertigo head CT neg MRI with no acute pathology Symptomatic treatment with meclizine p.r.n. PT eval - rec STR Intractable back pain after fall Imaging with compression deformities at T2-T4 and fracture at L4.? wean narcotics PT eval - rec STR Right subcapital humeral neck fracture Due to fall.? Symptomatic and conservative management. seen by ortho - rec sling, outpatient follow up in 4 weeks for repeat xrays Chronic hypoxemic respiratory failure secondary to COPD On 5 L baseline home O2 CT chest from 04/19 with severe amphysema had episode of hypoxia after taking off oxygen. improved with replacement of oxygen CXR pending Continue home inhalers, will consider systemic steroids Mood disorder lorazepam Essential hypertension diltiazem Chronic normocytic anemia Hemoglobin above transfusion threshold H/H at baseline incidental findings: thyroid nodule/ right ovarian cyst - outpatient follow up DVT prophylaxis:? Lovenox 40 mg daily Full code Attending - Dr. Gee Requires ongoing inpatient hospitalization for management of pain, monitoring of respiratory status Time Spent With Patient Time: Total time managing care of this patient today ____ minutes. Quality Stroke Does the patient have a stroke diagnosis?: No VTE Prior VTE?: No VTE Risk Level:: Medical - moderate - high VTE Device Contraindication: Treatment Not Indicated VTE Drug Contraindication: N/A - Med Ordered
[2022-04-21] MEDS: Morphine Sulfate 2 MG/ML CARTRIDGE IVPUSH ×2 (12:57→19:01)
[2022-04-21] MEDS: methylPREDNISolone Sod Succ 40 MG/ML VIAL IVPUSH (12:58)
--- NOTE | 2022-04-21 14:24 | MHC.CM.PN ---
IMM 04/21/22 Pt lives w spouse She uses a WC for mobility. She is able to transfer. She wears 5Lhome O2 baseline. She has been VAXXED x1 A HCP is on file. PT eval rec STR. Referrals have been sent. DP STR via BLS.
[2022-04-22] VITALS (7 sets, daily range): BP systolic 139–146; BP diastolic 67–71; PULSE 92–117; RESP 16–20; TEMP 36.1–37.3; O2SAT 90–97
[2022-04-22] MEDS: methylPREDNISolone Sod Succ 40 MG/ML VIAL IVPUSH (01:51)
[2022-04-22] MEDS: 0.9 % Sodium Chloride Flush 3 ML SYRINGE IVFLUSH ×3 (01:51→15:36)
[2022-04-22] MEDS: LORazepam 1 MG TABLET 2 MG PO ×3 (03:09→22:57)
[2022-04-22] MEDS: Morphine Sulfate 2 MG/ML CARTRIDGE IVPUSH (03:10)
[2022-04-22] MEDS: Enoxaparin Sodium 40 MG/0.4 ML SYRINGE SUBCUT (03:10)
[2022-04-22] MEDS: Butalb/Acetamin/Caff 50/325/40 TABLET 1 TAB PO ×3 (03:44→20:09)
[2022-04-22] MEDS: Ipratropium Bromide 1 PUFF/17 MCG INHALER 2 PUFF INHALE ×2 (08:05→20:13)
[2022-04-22] MEDS: dilTIAZem HCL CD 180 MG CAP.ER.24H 360 MG PO (08:51)
[2022-04-22] MEDS: Morphine Sulfate 2 MG/ML CARTRIDGE 4 MG IVPUSH (12:10)
--- NOTE | 2022-04-22 12:12 | MHC.CM.PN ---
LIBBY MET WITH PT TO DISCUSS DC PLANNING SHE REPORTS SHE WILL GO HOME ON MONDAY CM EXPLAINED SHE IS CURRENTLY ON OBSERVATION STATUS WHICH MEANS IT WILL LIKELY BE A SHORT STAY SHE THEN SAYS SHE DOES NOT HAVE ANYWHERE TO GO SHE SAYS SHE DOES NOT HAVE MONEY FOR THE [place] THEY LIVE AT CM ASKED WHERE HER IS AND SHE STATED HE IS GOING TO RENT A ROOM AT A DIFFERENT HOTEL CM INFORMED HER IF SHE WAS NOT PREPARED TO RETURN TO THE COMMUNITY SHE SHOULD PARTICIPATE WITH PT SO THAT SHE CAN GO TO STR SHE REPORTS SHE DOES NOT WANT TO AND WILL BE READY TO DC TO [place] TOMORROW HER WILL FINALIZE ARRANGEMENTS TODAY
--- NOTE | 2022-04-22 13:21 | P.PNIM_ITS ---
Subjective Subjective Date of Service: 04/22/22 Interval History: seen and examined this morning follow up for back pain, vertigo dizziness improving, complaining of back pain not working with pt no sob Review of Systems Review of Systems: Yes all other systems are reviewed and are negative Constitutional Constitutional: Denies chills and Denies fever(s) Cardiovascular Cardiovascular: Denies chest pain, Denies palpitations and Denies dyspnea Respiratory Respiratory: Denies dyspnea Gastrointestinal Gastrointestinal: Denies abdominal pain Endocrine Endocrine: Denies palpitations Physical Exam Vital Signs: Vital Signs: Last Vital Signs Temp 97.5 F 04/22/22 08:00 Pulse 102 H 04/22/22 08:08 Resp 20 04/22/22 08:08 BP 146/67 H 04/22/22 08:00 Pulse Ox 95 04/22/22 08:00 O2 Del Method 04/22/22 08:00 O2 Flow Rate 3.5 04/22/22 08:00 Oxygen Flow Rate 4 04/21/22 14:33 BMI result Body Mass Index 29.2 Const: General: alert and awake Nutritional Appearance: overweight Resp: Other: diminished breath sounds b/l; no wheezing Effort & Inspection: normal respiratory effort, able to speak in complete sentences, no respiratory distress and no use of accessory muscles Cardio: Rate: regular rate Heart sounds: S1 normal heart sound present and S2 normal heart sound present GI: Inspection: No distended Palpation (GI): Soft to palpation Neuro: Other: grossly non focal Extrem: Other: able to move all extremities spontaneously; no tenderness on palpation of spine or anywhere in back at this time General: Yes no pedal edema Objective Data Active Medications Acetaminophen (Acetaminophen 325 Mg Tablet) 650 mg PO Q6H PRN PRN Reason: Pain, Mild (Pain Scale 1-3) Last Admin: 04/20/22 16:13 Dose: 650 mg Documented By: JARED Acetaminophen/Butalbital/Caffeine (Butalb/Acetamin/Caff 50/325/40 Tablet) 1 tab PO Q4H PRN PRN Reason: Headache Last Admin: 04/22/22 03:44 Dose: 1 tab Documented By: WOO Albuterol Sulfate 2.5 mg/ (Ipratropium [place] 0.5 mg) 0 mg INHALE Q4H PRN PRN Reason: Wheezing Last Admin: 04/22/22 08:07 Dose: 2.5 each Documented By: TOBY Diltiazem HCl (Diltiazem Hcl Cd 180 Mg Cap.Er.24h) 360 mg PO DAILY [facility]; Protocol Last Admin: 04/22/22 08:51 Dose: 360 mg Documented By: LÁZARO Enoxaparin Sodium (Enoxaparin Sodium 40 Mg/0.4 Ml Syringe) 40 mg SUBCUT Q24H [facility] Last Admin: 04/22/22 03:10 Dose: 40 mg Documented By: WOO Ipratropium [place] (Ipratropium [place] 1 Puff/17 Mcg Inhaler) 2 puff INHALE RQID [facility] Last Admin: 04/22/22 12:21 Dose: Not Given Documented By: TOBY Non-Admin Reason: pt not avail Lorazepam (Lorazepam 1 Mg Tablet) 2 mg PO Q6H PRN PRN Reason: anxiety/restlessness Last Admin: 04/22/22 03:09 Dose: 2 mg Documented By: WOO Meclizine HCl (Meclizine Hcl 25 Mg Tablet) 25 mg PO Q6H PRN PRN Reason: vertigo Melatonin (Melatonin 3 Mg Tablet) 6 mg PO BEDTIME PRN PRN Reason: Insomnia Morphine Sulfate (Morphine Sulfate 2 Mg/Ml Cartridge) 4 mg IVPUSH Q4H PRN; Protocol PRN Reason: Pain, Severe (Pain Scale 7-10) Last Admin: 04/22/22 12:10 Dose: 4 mg Documented By: LÁZARO Ondansetron HCl (Ondansetron Hcl 4 Mg/2 Ml Vial) 4 mg IVPUSH Q8H PRN PRN Reason: Nausea and Vomiting Pharmacy Consult (Consult Rx Perform Med Rec) 1 each MISCELLANE ONCE PRN PRN Reason: Consult order Sodium Chloride (0.9 % Sodium Chloride Flush 3 Ml Syringe) 3 ml IVFLUSH QSHIFT [facility] Last Admin: 04/22/22 08:52 Dose: 3 ml Documented By: LÁZARO Labs 04/20/22 05:30 04/20/22 05:30 Assessment and Plan (1) Vertigo: Status: Acute (2) Chronic respiratory failure with hypoxia: Status: Acute Plan This is a 66-year-old female with pertinent history of chronic hypoxemic respiratory failure due to COPD on baseline 4 L supplemental oxygen, mood disorder, essential hypertension presents to the emergency department for evaluation of fall after an episode of vertigo. Vertigo head CT neg MRI with no acute pathology Symptomatic treatment with meclizine p.r.n. PT eval - rec STR Intractable back pain after fall Imaging with compression deformities at T2-T4 and fracture at L4.? wean narcotics PT eval - rec STR Right subcapital humeral neck fracture Due to fall.? Symptomatic and conservative management. seen by ortho - rec sling, outpatient follow up in 4 weeks for repeat xrays Chronic hypoxemic respiratory failure secondary to COPD On 5 L baseline home O2 CT chest from 04/19 with severe amphysema had episode of hypoxia after taking off oxygen. improved with replacement of oxygen CXR pending Continue home inhalers Mood disorder lorazepam Essential hypertension diltiazem Chronic normocytic anemia Hemoglobin above transfusion threshold H/H at baseline incidental findings: thyroid nodule - will check TSH/free t4- right ovarian cyst - outpatient follow up DVT prophylaxis:? Lovenox 40 mg daily Full code Attending - Dr. Belle Requires ongoing inpatient hospitalization for management of pain, monitoring of respiratory status Time Spent With Patient Time: Total time managing care of this patient today ____ minutes. Quality Stroke Does the patient have a stroke diagnosis?: No VTE Prior VTE?: No VTE Risk Level:: Medical - moderate - high VTE Device Contraindication: Treatment Not Indicated VTE Drug Contraindication: N/A - Med Ordered
[2022-04-22 14:58] LABS: TSH reflex Free T4 0.38 uIU/mL (0.32-4.0)
--- NOTE | 2022-04-22 18:09 | PC.NURSE ---
Pt reported her IV fell out aware, and RN talked to patent about changing IV meds to PO no need to insert new IV at this time
[2022-04-22] MEDS: oxyCODONE HCl Immed Release 5 MG TABLET PO (20:26)
--- NOTE | 2022-04-23 01:00 | PC.NURSE ---
pt was angry for 1 fioricet as ordered, pt request for the oxycodone. given by this nurse, still angry with 5 mg. respiratory therapist was helping me to explained about the ordered by doctor. pt was very anxious and yelling to everyone. given ativan still yelling to the phone. offered sling and ice pack, pt refused all. will monitor sleeping pattern and anxiety levels.
--- NOTE | 2022-04-23 01:16 | PC.NURSE ---
pt was asking for the sleeping med. she doesn't want to have melatonin, Dr. Hoang notified ordered olnzapine 5mg. once pharmacy verify will give.
[2022-04-23] MEDS: Enoxaparin Sodium 40 MG/0.4 ML SYRINGE SUBCUT (01:26)
[2022-04-23] MEDS: oxyCODONE HCl Immed Release 5 MG TABLET PO ×4 (01:27→20:16)
[2022-04-23] MEDS: OLANZapine 5 MG TABLET PO (01:27)
[2022-04-23 03:24] VITALS: BP 149/72; PULSE 83; RESP 18; TEMP 36.4; O2SAT 97
[2022-04-23] MEDS: LORazepam 1 MG TABLET 2 MG PO ×2 (09:32→16:09)
[2022-04-23] MEDS: Acetaminophen 325 MG TABLET 650 MG PO ×2 (09:32→15:44)
[2022-04-23] MEDS: dilTIAZem HCL CD 180 MG CAP.ER.24H 360 MG PO (09:32)
--- NOTE | 2022-04-23 10:42 | PM.DS ---
DS: Providers Provider Date of Service: 04/23/22 Date of admission: 04/20/22 02:09 Primary care physician: Mickey Guaman MD Consults: 04/20/22 12:44 Consult to Orthopedics Routine Consulting Provider: [facility] Reason for consultation: humeral fx Attending physician on discharge: [facility] Discharging clinician: Denise Ragsdale DS: Diagnosis Discharge Diagnosis (1) Fracture of neck of humerus: Status: Acute DS: Summary Hospital Course Hospital Course: HP as per admitting provider This is a 66-year-old female with pertinent history of chronic hypoxemic respiratory failure due to COPD on baseline 4 L supplemental oxygen, mood disorder, essential hypertension presents to the emergency department for evaluation of fall after an episode of vertigo.? Patient states she has been having intermittent vertigo, worse with head movement and activity that started 2 weeks ago.? She was prescribed meclizine by her primary care physician but states her symptoms havent resolved.? Does have associated nausea.? Prior to presentation, patient was in her bottom and she tried to get up.? She had a sensation of room spinning and fell.? No loss of consciousness.? Reports back pain since the fall and difficulty ambulating.? No jerking movement of extremities, tongue bite, urinary or bowel incontinence.? Patient denies fever, chills, chest discomfort, palpitations, shortness of breath, abdominal pain, changes in urinary or bowel habits.? No tinnitus, hearing deficits, preceding viral symptoms . Vertigo. Resolved MRI with no acute pathology Symptomatic treatment with meclizine p.r.n. PT eval - rec STR, patient refused Intractable back pain after fall. Resolved Imaging with compression deformities at T2-T4 and fracture at L4.? treated with pain medications PT eval - rec STR, patient refused Right subcapital humeral neck fracture. Due to fall.? Symptomatic and conservative management. seen by ortho - rec sling, outpatient follow up in 4 weeks for repeat xrays Chronic hypoxemic respiratory failure secondary to COPD On 5 L baseline home O2 CT chest from 04/19 with severe emphysema Continue home inhalers Mood disorder lorazepam Essential hypertension diltiazem Chronic normocytic anemia Hemoglobin above transfusion threshold H/H at baseline Time Spent with Patient Time attestation: Total time managing care of this patient today ____ minutes. Discharge coordination time: Greater than 30 minutes Quality: Safe Use of Opioids Does Pt have an Active Cancer Diagnosis on the Problem List?: No Quality: Stroke Does the patient have a stroke diagnosis?: No Physical Exam Vital Signs: Vital Signs: Last Vital Signs Temp 97.5 F 04/23/22 03:24 Pulse 83 04/23/22 03:24 Resp 18 04/23/22 03:24 BP 149/72 H 04/23/22 03:24 Pulse Ox 97 04/23/22 03:24 O2 Del Method 04/23/22 03:24 O2 Flow Rate 4 04/23/22 03:24 Oxygen Flow Rate 4 04/21/22 14:33 BMI result Body Mass Index 29.2 Appearing in no acute distress head is normocephalic atraumatic eyes pupils are PERRLA sclera is anicteric mouth throat mucous membranes are intact and moist neck is supple no lymphadenopathy, no JVD noted lung sounds are clear to auscultation, chronic oxygen use heart regular rate rhythm, clear S1, S2 positive bowel sounds, abdomen is soft, nontender neuro patient is alert x3, no focal deficits DS: Data Data Completed and Pending Labs on day of discharge: Laboratory Results - last 24 hr 04/22/22 14:10 TSH 0.38 Discharge Plan Discharge Anticipated Discharge Date/Time: 04/23/22 10:38 Patient Disposition: Home, Self-Care Discharge Diagnosis: Vertigo Back pain Right subcapital humeral neck fracture Referrals: Name,MD Mickey [Primary Care Provider] - 1 Week Discharge Medications: Continued albuterol sulfate 2.5 mg /3 mL (0.083 %) solution for nebulization 1 vial inhalation Q6H Rx Instructions: TAKE WITH IPROTROPIUM BROMIDE 0.02% tmcktwnnzz-avgozjemxwdhx-sbxv 50-325-40 mg tablet 2 tab PO Q12H PRN (Reason: Migraine Headache) Rx Instructions: not to exceed 6 tabs/24 hours ipratropium bromide 0.02 % solution 2.5 ml inhalation Q6H Rx Instructions: TAKE WITH ALBUTEROL 0.083% aspirin 81 mg Tablet,Delayed Release (Dr/Ec) 81 mg PO DAILY Qty: 30 0RF meclizine 25 mg tablet 1 tab PO TID PRN (Reason: dizziness) Atrovent HFA 17 mcg/actuation HFA aerosol inhaler 2 puff inhalation QID diltiazem HCl 360 mg capsule,extended release 24 hr 1 cap PO DAILY lorazepam 2 mg tablet 1 tab PO Q6H PRN (Reason: anxiety) Discharge Orders: Discharge Order (Routine); Ordered 04/23/22 Ordered By: Denise Ragsdale Diet: Advance to usual diet Activity on Discharge: As tolerated Stand Alone Forms: Patient Portal Discharge page Care Plan Goals: complete resolution of symptoms Health Concerns: Vertigo Back pain Right subcapital humeral neck fracture chronic respiratory failure on home oxygen Plan of Treatment: Follow-up with primary care provider Take all medications as prescribed Assessment: see discharge summary
[2022-04-23] MEDS: Ipratropium Bromide 1 PUFF/17 MCG INHALER 2 PUFF INHALE ×2 (11:54→16:23)
[2022-04-23 11:57] VITALS: PULSE 84; RESP 20; O2SAT 95
--- NOTE | 2022-04-23 15:05 | MHC.CM.PN ---
Addendum entered by Merry Toussaint 04/23/22 16:27: PT HAS CONFIRMED THE HOTEL ROOM IS ALL SET SHE WILL RETURN TO ROOM 34 AT THE [facility] TRANSPORT VIA [employer] WAS BOOKED FOR [id number] Original Note: PT IS AWARE SHE IS BEING DISCHARGED TODAY ALTHOUGH SHE CONTINUES TO STATE SHE WANTS TO STAY ANOTHER DAY SHE REPORTS HER IS WORKING ON GETTING THEM A NEW HOTEL ROOM BUT SHE IS WAITING FOR THE ROOM NUMBER. CM INFORMED HER BLS TRANSPORT TO THE [facility] WOULD BE BOOKED FOR 1630 HOURS THE NUMBER FOR [employer] WAS ALSO PROVIDED TO PT FOR ASSISTANCE WITH HOUSING PT CONFIRMS HER O2 CONCENTRATOR IS ALREADY AT THE HOTEL, THEY ARE HOLDING IT IN THE LOBBY WHILE THE ROOM GETS SITUATED PT CONTINUES TO DECLINE TO WORK WITH PT TO DETERMINE IF STR IS APPROPRIATE PT WILL DC TO THE [facility] VIA [facility]
[2022-04-23 16:16] VITALS: BP 159/74; PULSE 94; RESP 18; TEMP 37; O2SAT 94
== END 2022-04-23 20:47 | disposition home or self-care (01) ==
LOC: HO.ED 04-20 00:39 → HO.EDOVER 04-20 02:13 → HO.S3 04-20 13:23
PROVIDERS: Physician Assistant; Physician Assistant Medical; Admitting Provider Student in an Organized Health Care Education/Training Program; Emergency Provider Emergency Medicine; PCP Internal Medicine Geriatric Medicine; Visit Provider Nurse Practitioner Acute Care
DX: H81.10 Benign paroxysmal vertigo, unspecified ear (principal); I95.1 Orthostatic hypotension; S42.211A Unspecified displaced fracture of surgical neck of right humerus, initial encounter for closed fracture; W18.2XXA Fall in (into) shower or empty bathtub, initial encounter; M48.54XA Collapsed vertebra, not elsewhere classified, thoracic region, initial encounter for fracture; E04.1 Nontoxic single thyroid nodule; Z20.822 Contact with and (suspected) exposure to COVID-19; I21.4 Non-ST elevation (NSTEMI) myocardial infarction; I10 Essential (primary) hypertension; J96.11 Chronic respiratory failure with hypoxia; J44.9 Chronic obstructive pulmonary disease, unspecified; D64.9 Anemia, unspecified; Y93.E1 Activity, personal bathing and showering; Y92.9 Unspecified place or not applicable; Y99.9 Unspecified external cause status; Z87.891 Personal history of nicotine dependence; Z99.81 Dependence on supplemental oxygen; Z79.899 Other long term (current) drug therapy
CPT/HCPCS: 36415; 70450; 70551; 71045; 71260; 72125; 73030; 74177; 80048; 80053; 80307; 81003; 82077; 82550; 82947; 83690; 83735; 83880; 84443; 84484; 85025; 85610; 87635; 93005; 94640; 96361; 96372; 96374; 96375; 96376; 97162; 99221; 99285; J1170; J1650; J2270; J2405; J2920; Q9967

== ENCOUNTER 2022-04-25 13:34 | Emergency (ER) | payer MEDICARE, SELFPAY ==
--- NOTE | ~2022-04-25 | CT_ITS ---
EXAM: CT HEAD WITHOUT CONTRAST CT CERVICAL SPINE INDICATION: Reason for Exam dizziness, fall TECHNIQUE: A noncontrast CT scan was performed from the skull base to the vertex. A noncontrast CT scan of the cervical spine was performed from the base of the skull through T1 at 2.5 mm and 0.625 mm collimation. Coronal and sagittal reformats were obtained at the acquisition workstation. This CT examination was performed using dose optimization techniques as appropriate, variously including the following: * Automated exposure control * Adjustment of mA and/or kV according to patient size (this includes techniques or standardized protocols for targeted exams where dose is matched to indication/reason for exam; i.e. extremities or head) * Use of iterative reconstruction technique Dose length product is 1211 mGy-cm. COMPARISON: CT 04/19/2022 FINDINGS: Head: Trent to white matter differentiation is maintained without evidence of an acute territorial infarct. There is no intracranial hemorrhage, subarachnoid bleeding or extra-axial collection. There hypodensities throughout the periventricular and deep white matter likely related with chronic small vessel ischemic disease. There is no hydrocephalus, herniation, midline shift, or other herniation pattern. No acute calvarial fracture. The paranasal sinuses and mastoid air cells are clear. Cervical Spine: There is significant motion artifact degrading images, limiting evaluation. The atlantooccipital and atlantoaxial articulations remain well aligned. Straightening of the normal cervical lordosis. Otherwise, there is anatomic alignment of the vertebral bodies and posterior elements. Vertebral body heights are grossly maintained. No evidence of gross compression fractures. Subtle/undisplaced fractures may not be evident in these motion degraded images... Mild-moderate cervical spondylosis, with disc height loss, endplate osteophytes.. No prevertebral soft tissue swelling. The paraspinal soft tissues are unremarkable. No suspicious thyroid findings. Emphysematous changes in lung apices.. CT/CT cervical spine wo IV con IMPRESSION: 1. No CT evidence of acute intracranial hemorrhage or edematous territorial infarction. 2. Cervical spine images are significantly degraded by motion artifact. Recommend repeat CT scan for further evaluation as clinically warranted. 3. In the provided images, no gross cervical vertebral compression deformities are seen. Subtle/undisplaced fractures may not be evident.
--- NOTE | ~2022-04-25 | XR_ITS ---
EXAMINATION: Right humerus x-ray. Right shoulder x-ray CLINICAL INFORMATION: Arm pain status post fall COMPARISON: X-ray the right shoulder April 2022. TECHNIQUE: 3 views of the right shoulder. 2 views of the right humerus. FINDINGS: Right shoulder: There is persistent is sclerosis along the surgical neck of the humerus with cortical irregularity along the medial aspect of the head neck junction unchanged. This has the appearance of an impacted minimally displaced fracture. Remaining bones joints and soft tissues are unremarkable. Right humerus: Proximal right humerus as above. Remaining bone and soft tissues unremarkable XR/XR humerus RT IMPRESSION: No change in the appearance of a minimally displaced fracture of the proximal humerus.
--- NOTE | ~2022-04-25 | CT_ITS ---
EXAMINATION: CT CHEST WITHOUT CONTRAST CLINICAL INFORMATION: SOB COMPARISON: Chest x-ray 04/25/2022 TECHNIQUE: Multidetector volumetric CT imaging of the chest was done. Axial MIP volume rendering provided. Sagittal and coronal reformatted images were obtained. This CT examination was performed using dose optimization techniques as appropriate, variously including the following: *Automated exposure control *Adjustment of mA and/or kV according to patient size (this includes techniques or standardized protocols for targeted exams where dose is matched to indication/reason for exam; i.e. extremities or head) *Use of iterative reconstruction technique DLP: 245 mGy-cm FINDINGS: QA MANAGER: Well-expanded lungs. LUNGS: There is diffuse centrilobular emphysematous lungs with chronic scarring or atelectasis seen in the right upper lobe. There is no acute consolidation, pulmonary nodule, masses or atelectasis. MEDIASTINUM: The thyroid lobes are symmetrical and normal. The central trachea and the bronchi widely patent. Small shotty lymph nodes are seen in the mediastinum. There is no pericardial effusion. . CORONARY ARTERY CALCIFICATION: Mild coronary artery calcifications are present. PLEURA: There is no pleural effusion. No pleural mass or thickening. AXILLA: No lymphadenopathy. UPPER ABDOMEN: Visualized liver, spleen and pancreas is unremarkable. There are multiple gallstones. OSSEOUS STRUCTURES: No lytic or sclerotic process seen. CT/CT chest wo IV con IMPRESSION: 1. Diffuse centrilobular emphysema with chronic scarring or atelectasis right upper lobe. There is no acute consolidation, pulmonary nodule or mass. 2. Cholelithiasis without wall thickening. Right upper lobe chronic scarring or atelectasis. 3. No acute pneumonic process seen Fleischner guidelines were followed.
--- NOTE | ~2022-04-25 | XR_ITS ---
EXAMINATION: Right humerus x-ray. Right shoulder x-ray CLINICAL INFORMATION: Arm pain status post fall COMPARISON: X-ray the right shoulder April 2022. TECHNIQUE: 3 views of the right shoulder. 2 views of the right humerus. FINDINGS: Right shoulder: There is persistent is sclerosis along the surgical neck of the humerus with cortical irregularity along the medial aspect of the head neck junction unchanged. This has the appearance of an impacted minimally displaced fracture. Remaining bones joints and soft tissues are unremarkable. Right humerus: Proximal right humerus as above. Remaining bone and soft tissues unremarkable XR/XR shoulder RT min 2V IMPRESSION: No change in the appearance of a minimally displaced fracture of the proximal humerus.
--- NOTE | ~2022-04-25 | XR_ITS ---
EXAMINATION: XR LUMBOSACRAL SPINE CLINICAL INFORMATION: Back pain after fall COMPARISON: CT abdomen pelvis 04/19/2022 TECHNIQUE: Three views of the lumbosacral spine. FINDINGS: The mild compression fractures seen on the prior CT scans not well appreciated on this exam. No acute fractures are seen. No bony destructive lesions are seen. Aortoiliac calcifications are seen along with a right lower quadrant bowel anastomosis XR/XR lumbar spine 2-3V IMPRESSION: No evidence of an acute injury.
[2022-04-25 13:51] VITALS: BP 171/78; BP 178/106; PULSE 112; PULSE 118; RESP 17; TEMP 35.8; O2SAT 96; BMI 29.2
--- NOTE | 2022-04-25 18:07 | ED.GENADULT ---
HPI - General Adult General Chief complaint: General Medical Stated complaint: SOB Time Seen by Provider: 04/25/22 18:07 Source: patient and EMS Mode of arrival: EMS Limitations: no limitations History of Present Illness HPI narrative: 66-year-old female presents via EMS for shortness breath, dizziness, back pain, shoulder pain, arm pain, after a fall. Patient is vague about her injuries and when her fall occurred. Onset (ago): week(s) Location: head, chest, back, right and upper extremity Severity: severe Severity scale (1-10): 10 Quality: aching Pain Consistency: constant Relieving factors: none Exacerbating factors: movement Associated symptoms: shortness of breath Treatments prior to arrival: none Related Data Home Medications Medication Instructions Recorded Confirmed albuterol sulfate 2.5 mg/3 mL 1 vial inhalation Q6H 10/04/20 04/26/22 (0.083 %) solution for nebulization fgxmrnjyxg-rnwcfiyhdnsvh-bbregozy 2 tab PO Q12H PRN Migraine Headache 10/04/20 04/26/22 50 mg-325 mg-40 mg tablet diltiazem HCl 360 mg capsule,24 1 cap PO DAILY 07/08/21 04/19/22 hr,extended release lorazepam 2 mg tablet 1 tab PO Q6H PRN anxiety 07/08/21 04/26/22 ipratropium bromide 0.02 % 2.5 ml inhalation Q6H 09/25/21 04/19/22 solution for inhalation ipratropium bromide 17 2 puff inhalation QID 04/19/22 04/26/22 mcg/actuation HFA aerosol inhaler (Atrovent HFA) meclizine 25 mg tablet 1 tab PO TID PRN dizziness 04/19/22 04/26/22 Previous Rx's Medication Instructions Recorded aspirin 81 mg tablet,delayed 81 mg PO DAILY #30 tabs 03/12/22 release oxycodone 5 mg tablet 5 mg PO Q4H PRN Pain, Severe (Pain 04/23/22 Scale 7-10) #18 tabs Allergies Allergy/AdvReac Type Severity Reaction Status Date / Time tramadol [TRAMADOL] Allergy Severe SWEATING, Verified 04/16/22 23:48 VOMITING, vomiting Sulfa (Sulfonamide Allergy Unknown Verified 04/16/22 23:48 Antibiotics) amoxicillin [From AUGMENTIN] AdvReac Severe CONSTIPATIO Verified 04/16/22 23:48 N clavulanic acid AdvReac Severe CONSTIPATIO Verified 04/16/22 23:48 [From AUGMENTIN] N codeine [CODEINE] AdvReac Severe NAUSEA Verified 04/16/22 23:48 levofloxacin [From LEVAQUIN] AdvReac Severe CONSTIPATIO Verified 04/16/22 23:48 N Review of Systems Review of Systems: Constitutional: No Fever, No Chills Cardiovascular: Positive Chest Pain, positive SOB Respiratory: Positive Cough, No Dyspnea Gastrointestinal: Positive Nausea, No Vomiting, No Diarrhea, No abdominal Pain Genitourinary: No Dysuria, No Hematuria Musculoskeletal: positive right arm, right shoulder, lower back pain, No Myalgias, No Joint Swelling Skin: No Skin lacerations, No rash Neuro: Positive Weakness, No Numbness, No Paresthesias, No Loss of Consciousness, positive Dizziness, positive Headache Yes all other systems are reviewed and are negative PMFSH Past Medical History Attestation statement: The following information was validated with the patient. Source: old records reviewed Medical History Acute and chronic respiratory failure with hypoxia Anxiety Asthma Bronchitis Chronic lung disease Chronic obstructive pulmonary disease with hypoxia Chronic respiratory failure Chronic respiratory failure with hypoxia Compression fracture of thoracic vertebra COPD (chronic obstructive pulmonary disease) Diverticulitis Dizziness Emphysema lung Hypertension Otitis media Pulmonary abscess Thyroid nodule Vertigo Surgical History History of breast surgery History of laparotomy Family History Family History Other No family history of coronary artery disease Social History Social History Household Members: Spouse Housing: Other Housing Other:: hotel Do you presently have visiting nurse or other home services: No Alcohol intake: current Alcohol intake frequency: holidays/special occasions only Alcohol type: beer Patient Tobacco Use Status: Former Tobacco user Tobacco use type: Cigarette Smoked in Last 30 Days: No Use of substances other than those prescribed or required for medical reasons: No Substance Use Type: Marijuana Advance Directives: Yes Advance Directives on File: Yes Advance Directives Date on File: 07/09/21 service: No Current occupational status: disabled Physical Exam ED Vital Signs: Vital Signs - 24 hr 04/25/22 13:51 04/25/22 18:52 04/26/22 00:31 Temperature 96.5 F L 97.4 F Pulse Rate 112 H 102 H 102 H Respiratory Rate 17 18 18 Blood Pressure 171/78 H 153/63 H Pulse Oximetry 96 100 Oxygen Delivery Method Nasal Cannula Nasal Cannula Oxygen Flow Rate 4 04/26/22 01:02 04/26/22 04:10 04/26/22 06:22 Temperature 98.4 F 98.3 F 97.9 F Pulse Rate 102 H 93 84 Respiratory Rate 22 H 16 16 Blood Pressure 132/59 L 124/51 L 120/45 L Pulse Oximetry 99 100 100 Oxygen Delivery Method Nasal Cannula Nasal Cannula Nasal Cannula Oxygen Flow Rate 4 BMI result Body Mass Index 29.2 Appearance: Alert. Oriented. Odd affect. O2 dependent. Eyes: Pupils equal, round and reactive to light. Sclera nonicteric. ENT: Pharynx normal. Moist mucous membranes. Neck: Normal inspection. Neck supple. Reports vertebral tenderness to palpation. No step-offs noted. No nuchal rigidity. Lower back vertebral tenderness pain noted. CVS: Tachycardic heart rate and rhythm. Apical pulse equal pulses to extremities. Respiratory: No respiratory distress. Breath sounds normal. Abdomen: Soft and nontender. Skin: Skin warm and dry. Normal skin color. Normal skin turgor. Extremities: No lower extremity edema. Right shoulder pain to palpation. Pain to the mid humerus to palpation. Strength 5/5 to the digits and managed services sales consultant strength. Gait not assessed for safety. Neuro: No motor deficit. No sensory deficit. Cranial nerves 2-12 intact Course Course Course Narrative: Patient brought in by ambulance, triaged at 13:51. 18:08 initial vital signs recorded at 13:51 indicate heart rate of 112, temperature of 96.5 degrees. 18:09 66-year-old female, poor historian with odd, presents with right arm pain, lower back pain, headache, shortness of breath, and dizziness. States that she fell, unable to tell me when, states that she also fell last week and was evaluated for similar circumstances. Patient is not forthcoming with information. Physical exam indicates vertebral tenderness to minimal palpation. Lumbar spine tenderness to palpation. Has tenderness to the acromion process and supraclavicular. Pain to palpation to the mid humerus. Flexion extension pronation supination of the elbow, wrist and able to fully move digits. 19:56 CT scan head chest cervical spine negative for acute findings. There is motion artifact the CT scan of cervical spine. Minimally displaced humerus fracture as noted on prior imaging on 04/19/2022. Labs are pending. 20:22 after multiple discussions with patient, and case management consult, patient states that she does not have a place to go because she can not afford the hotel room for the evening. This patient stated that she was only looking for a place to stay for the evening, lab values were canceled as her injuries from her fall were consistent with prior imaging. She does have adequate housing for tomorrow an asked if she could stay because she is unable to get her oxygen tank from the hotel that she was temporarily residing at. She will have access to her oxygen tank tomorrow. Considering that this patient requires O2, will keep overnight under physician observation. 23:00 patient is yelling at other patients, order for Seroquel 50 mg p.o.. Physician observation at this time. Plan of care is for patient to be discharged in the morning to the hotel that his housing her. Patient also has not been taking her medications, elevated heart rate could possibly be due to anxiety and benzodiazepine withdrawal. Consultations Consultation #1: Case management Time: 21:11 Medications Administered Generic Name Dose Route Start Last Admin Trade Name Freq PRN Reason Stop Dose Admin Albuterol Sulfate 2.5 mg 04/26/22 01:15 04/26/22 01:30 Albuterol Sulfate (0.083%) 2.5 Mg/3 Ml Vial.Neb INHALE Not Given Q6H NARCISA Discontinued Medications Generic Name Dose Route Start Last Admin Trade Name Freq PRN Reason Stop Dose Admin Albuterol Sulfate 5 mg/ 0 mg 04/26/22 00:22 04/26/22 00:29 Ipratropium Lyman 0.5 mg INHALE 04/26/22 00:23 1 each ONCE ONE Administration Lorazepam 2 mg 04/26/22 01:16 04/26/22 01:42 Lorazepam 1 Mg Tablet PO 04/26/22 01:17 Not Given ONCE ONE Quetiapine Fumarate 50 mg 04/25/22 23:03 04/25/22 23:59 Quetiapine Fumarate 50 Mg Tablet PO 04/25/22 23:04 50 mg ONCE ONE Administration Medical Decision Making Differential Diagnosis Differential Diagnoses: The differential diagnosis associated with the presentation includes Fracture, dislocation, CVA, subdural, cervical spine fracture, COVID, influenza, RSV, pneumonia, benzodiazepine withdrawal, anxiety Admission/Observation Consideration of admission/observation: Escalation of care including admission/observation considered If acute findings noted, will consider admission Lab Data MDM Lab Attestation statement: I reviewed the patient's lab results. Labs: Lab Results 04/25/22 04/25/22 Range/Units 23:26 23:26 COVID-19 (SEAN) Negative (Negative) COVID-19 Clin Com See Note Influenza Type A (TAMIKO) Negative (Negative) Influenza Type B (TAMIKO) Negative (Negative) Influenza A & B Note See Note Independent Interpretation I performed an independent interpretation of an: EKG, Plain X-Ray and CT Scan Interpretation: Sinus tachycardia Otherwise normal ECG When compared with ECG of 21-APR-2022 11:39, No significant change was found Vent. rate 110 BPM MA interval 132 ms QRS duration 76 ms QT/QTc 342/462 ms P-R-T axes 81 26 72 26-APR-2022 00:57:00 Radiology Impression Discussion of test interpretation with radiology: I have reviewed the radiologist's reading. External Record Review External record reviewed: Outpatient record, Prior outpatient labs and Prior outpatient radiology Prescription Management I considered prescription management with: Pain Medication and Other (anxiolytic) Chronic Conditions Patient?s care impacted by: Other (COPD, O2 dependent) Social Determinants Patient?s care significantly limited by Social Determinants of Health including: Other Social Determinant of Health Discharge Plan Discharge Clinical Impression: Homeless, Fracture of neck of humerus Patient Disposition: Home, Self-Care Instructions: Arm Fracture in Adults (ED) Additional Instructions: Please keep sling in place. You must follow-up with orthopedics as scheduled per your evaluation on 04/21/2022. Repeat CT scan of head, cervical spine, chest are negative for acute findings. X-rays of the shoulder and humerus indicate fracture that has not changed. Please take your medications as prescribed. Thank you for choosing this emergency department for evaluation. Please follow-up with primary care physician as needed. Return to the emergency department for any new, concerning, or worsening symptoms. Prescriptions: No Action albuterol sulfate 2.5 mg /3 mL (0.083 %) solution for nebulization 1 vial inhalation Q6H Rx Instructions: TAKE WITH IPROTROPIUM BROMIDE 0.02% dmlxmwksfz-xjtbkrtjnjizi-mkkn 50-325-40 mg tablet 2 tab PO Q12H PRN (Reason: Migraine Headache) Rx Instructions: not to exceed 6 tabs/24 hours ipratropium bromide 0.02 % solution 2.5 ml inhalation Q6H Rx Instructions: TAKE WITH ALBUTEROL 0.083% aspirin 81 mg Tablet,Delayed Release (Dr/Ec) 81 mg PO DAILY Qty: 30 0RF meclizine 25 mg tablet 1 tab PO TID PRN (Reason: dizziness) Atrovent HFA 17 mcg/actuation HFA aerosol inhaler 2 puff inhalation QID oxycodone 5 mg Tablet 5 mg PO Q4H PRN (Reason: Pain, Severe (Pain Scale 7-10)) Qty: 18 0RF Rx Instructions: Partial Fill upon patient request. diltiazem HCl 360 mg capsule,extended release 24 hr 1 cap PO DAILY lorazepam 2 mg tablet 1 tab PO Q6H PRN (Reason: anxiety)
--- NOTE | 2022-04-25 18:15 | ECG_ITS ---
Test Reason : ELEVATED HEART RATE Blood Pressure : / mmHG Vent. Rate : 110 BPM Atrial Rate : 110 BPM P-R Int : 132 ms QRS Dur : 076 ms QT Int : 342 ms P-R-T Axes : 081 026 072 degrees QTc Int : 462 ms Sinus tachycardia Otherwise normal ECG When compared with ECG of 21-APR-2022 11:39, No significant change was found Referred By: Julee Latham Electronically Signed By:PATEL WALSH MD
--- NOTE | 2022-04-25 18:41 | PC.NURSE ---
Patient away for imaging. Upon return, vital signs will be obtained. Provider (Caprice) aware.
[2022-04-25 18:52] VITALS: BP 153/63; PULSE 102; RESP 18; TEMP 36.3; O2SAT 100
--- NOTE | 2022-04-25 19:19 | PC.NURSE ---
Attempted twice to draw labs from patient. Patient jerked her arm away upon needle stick, exclaimed I know my veins! after instructing this RN to attempt stick in [address]. Pt has a history of similar difficulty with IV/needle sticks. Provider aware. Lala (ED PCT) to attempt to obtain labs from patient. Vitals stable.
--- NOTE | 2022-04-25 21:03 | MHC.CM.ED ---
Addendum entered by Claudia Villagomez 04/25/22 21:10: According to record, Pt has been at the [facility], the [facility] and now the [facility] on [address] in [place] this month. Pt states the [facility] is cheaper. CM stressed that patient needs a more stable living situation, than moving from motel to motel. Pt agrees but is not interested in talking now. C/O arm pain, hx previous fx. Julee ARMSTRONG aware of request for pain medication. Original Note: CM was asked to speak with patient regarding discharge planning by uJlee ARMSTRONG. Pt tells CM that she and Marcelino () are no longer living at the [facility], as it is too expensive. States Marcelino to walking to the [facility] on [address] in [place] to secure a new room. States her concentrator is at the [facility] in a room. Marcelino will bring it to the [facility] in the morning. Pt is requesting discharge in the morning, as she will not have her oxygen at the new motel until tomorrow. Above reported to Julee ARMSTRONG. Pt will remain overnight with discharge in the morning to the [facility] on [address] in [place]. RN aware of the plan.
[2022-04-25 23:45] LABS: COVID-19 Test Negative (Negative); IDNOW Serial# 9DB6401D
[2022-04-25 23:50] LABS: IDNOW Serial# 08D9AD1C; Influenza A Negative (Negative); Influenza B2 Negative (Negative)
[2022-04-25] MEDS: QUEtiapine Fumarate 50 MG TABLET PO (23:59)
--- NOTE | 2022-04-26 00:02 | PC.NURSE ---
Assumed care at 23:00 from MITESH Meyer, pt removed out of the hallway to room 21. medicated per apr. Pt given sandwich and a drink. Pt is on the phone with partner, no sign of distress. Will continue to monitor.
[2022-04-26 00:31] VITALS: PULSE 102; RESP 18; O2SAT 100
--- NOTE | 2022-04-26 00:57 | PC.NURSE ---
Confirmed with Jeremy Ladd, if she still wanted EKG, that was ordered prior to my shift. Per Julee, EKG is to be completed.
[2022-04-26 01:02] VITALS: BP 132/59; PULSE 102; RESP 22; TEMP 36.9; O2SAT 99
--- NOTE | 2022-04-26 01:48 | PC.NURSE ---
Attempted to medicate pt, pt refused meds and is sleeping at this time. No sign of respiratory distress.
[2022-04-26 04:10] VITALS: BP 124/51; PULSE 93; RESP 16; TEMP 36.8; O2SAT 100
[2022-04-26 06:22] VITALS: BP 120/45; PULSE 84; RESP 16; TEMP 36.6; O2SAT 100
--- NOTE | 2022-04-26 06:49 | PC.NURSE ---
pt a&o, no sob or chest pain upon discharge, Reviewed discharge instruction, pt verbalized understanding. Sling applied. No sign of distress
== END 2022-04-26 06:51 | disposition home or self-care (01) ==
PROVIDERS: Nurse Practitioner Family; Emergency Provider Emergency Medicine Emergency Medical Services
DX: S42.211A Unspecified displaced fracture of surgical neck of right humerus, initial encounter for closed fracture (principal); W19.XXXA Unspecified fall, initial encounter; R06.02 Shortness of breath; J44.9 Chronic obstructive pulmonary disease, unspecified; Z99.81 Dependence on supplemental oxygen; F12.90 Cannabis use, unspecified, uncomplicated; Z87.891 Personal history of nicotine dependence; Y93.9 Activity, unspecified; Y92.9 Unspecified place or not applicable; Y99.9 Unspecified external cause status; Z20.822 Contact with and (suspected) exposure to COVID-19
CPT/HCPCS: 70450; 71250; 72100; 72125; 73030; 73060; 87502; 87635; 93005; 94640; 99285

== ENCOUNTER 2022-04-26 08:02 | Emergency (ER) | payer MEDICARE, SELFPAY ==
[2022-04-26 08:46] VITALS: BP 142/58; PULSE 105; RESP 16; TEMP 36.6; O2SAT 97
[2022-04-26 09:06] VITALS: BP 142/58; PULSE 105; RESP 16; TEMP 36.6; O2SAT 97; BMI 30.9
--- NOTE | 2022-04-26 09:44 | PC.NURSE ---
provider in room performed a rectal exam with assistance of her student, rectal exam was negative for blood per provider
--- NOTE | 2022-04-26 09:45 | ED_ITS ---
HPI - General Adult General Chief complaint: General Medical Stated complaint: colon issues Time Seen by Provider: 04/26/22 09:31 Source: patient and family Mode of arrival: wheelchair Limitations: no limitations History of Present Illness HPI narrative: 66-year-old female presenting to the ER with her significant other at bedside reporting that she is homeless and has nowhere to go and she noticed some blood in her stool earlier today 1 time. She was seen here last night and was cleared. She denies any SI/HI/auditory or visual hallucinations or thoughts of self-injury. She denies any other symptoms complaints or concerns at this time. MD complaint: Homelessness and blood in stool Onset (ago): year(s) (She has been homeless for years) Related Data Home Medications Medication Instructions Recorded Confirmed albuterol sulfate 2.5 mg/3 mL 1 vial inhalation Q6H 10/04/20 04/26/22 (0.083 %) solution for nebulization gliykylljg-qgaabirkfcjja-[id number] 2 tab PO Q12H PRN Migraine Headache 10/04/20 04/26/22 50 mg-325 mg-40 mg tablet diltiazem HCl 360 mg capsule,24 1 cap PO DAILY 07/08/21 04/19/22 hr,extended release lorazepam 2 mg tablet 1 tab PO Q6H PRN anxiety 07/08/21 04/26/22 ipratropium bromide 0.02 % 2.5 ml inhalation Q6H 09/25/21 04/19/22 solution for inhalation ipratropium bromide 17 2 puff inhalation QID 04/19/22 04/26/22 mcg/actuation HFA aerosol inhaler (Atrovent HFA) meclizine 25 mg tablet 1 tab PO TID PRN dizziness 04/19/22 04/26/22 Previous Rx's Medication Instructions Recorded aspirin 81 mg tablet,delayed 81 mg PO DAILY #30 tabs 03/12/22 release oxycodone 5 mg tablet 5 mg PO Q4H PRN Pain, Severe (Pain 04/23/22 Scale 7-10) #18 tabs Allergies Allergy/AdvReac Type Severity Reaction Status Date / Time tramadol [TRAMADOL] Allergy Severe SWEATING, Verified 04/16/22 23:48 VOMITING, vomiting Sulfa (Sulfonamide Allergy Unknown Verified 04/16/22 23:48 Antibiotics) amoxicillin [From AUGMENTIN] AdvReac Severe CONSTIPATIO Verified 04/16/22 23:48 N clavulanic acid AdvReac Severe CONSTIPATIO Verified 04/16/22 23:48 [From AUGMENTIN] N codeine [CODEINE] AdvReac Severe NAUSEA Verified 04/16/22 23:48 levofloxacin [From LEVAQUIN] AdvReac Severe CONSTIPATIO Verified 04/16/22 23:48 N Review of Systems Review of Systems: Constitutional : No Weight loss, No Fever, No Chills, No Night Sweats, No Fatigue, No Malaise ENT/Mouth : No Hearing loss, No Ear Pain, No Nasal Congestion, No Sinus Pain, No Hoarseness, No sore throat, No Rhinorrhea, No Swallowing Difficulty Eyes: No Eye Pain, No Swelling, No Redness, No Foreign Body, No Discharge, No Vision Changes Cardiovascular : No Chest Pain, No SOB, No Dyspnea on Exertion, No Orthopnea, No Edema, No Palpitations Respiratory : No Cough, No Sputum, No Wheezing, No Smoke Exposure, No Dyspnea Gastrointestinal : No Nausea, No Vomiting, No Diarrhea, No Constipation, No abdominal Pain, + Hematochezia, No Melena Genitourinary : no irregular bleeding, No Dysuria, No Urinary Frequency, No Hematuria, No Urinary Incontinence, No Urgency, No Flank Pain, No Urinary Flow Changes, No Hesitancy Musculoskeletal : No joint pain, No Myalgias, No Joint Swelling Skin : No Skin Lesions, No rash Neuro : No Weakness, No Numbness, No Paresthesias, No Loss of Consciousness, No Dizziness, No Headache Psych : No Anxiety/Panic, No Depression, No SI/HI/AH/VH, No Social Issues, Heme/Lymph: No Bruising, No Bleeding,No Lymphadenopathy Endocrine : No Polyuria, No Polydipsia, No Temperature Intolerance Yes all other systems are reviewed and are negative [facility] Past Medical History Attestation statement: The following information was validated with the patient. Source: old records reviewed, obtained from family and nursing notes reviewed Medical History Acute and chronic respiratory failure with hypoxia Anxiety Asthma Bronchitis Chronic lung disease Chronic obstructive pulmonary disease with hypoxia Chronic respiratory failure Chronic respiratory failure with hypoxia Compression fracture of thoracic vertebra COPD (chronic obstructive pulmonary disease) Diverticulitis Dizziness Emphysema lung Hypertension Otitis media Pulmonary abscess Thyroid nodule Vertigo Surgical History History of breast surgery History of laparotomy Family History Family History Other No family history of coronary artery disease Social History Social History Household Members: Spouse Housing: Other Housing Other:: hotel Do you presently have visiting nurse or other home services: No Alcohol intake: current Alcohol intake frequency: holidays/special occasions only Alcohol type: beer Patient Tobacco Use Status: Former Tobacco user Tobacco use type: Cigarette Substance Use Type: Marijuana Advance Directives: Yes Advance Directives on File: Yes Advance Directives Date on File: 07/09/21 service: No Current occupational status: disabled Physical Exam ED Vital Signs: Vital Signs - 24 hr 04/26/22 08:46 04/26/22 09:06 Temperature 97.9 F 97.9 F Pulse Rate 105 H 105 H Respiratory Rate 16 16 Blood Pressure 142/58 H 142/58 H Pulse Oximetry 97 97 Oxygen Delivery Method Nasal Cannula Room Air Oxygen Flow Rate 5 BMI result Body Mass Index 30.9 vital signs have been reviewed as normal and appeared to be correct. Blood pressure 142/58. Heart rate 105. Respiration rate normal. Temperature normal. Oxygen saturation normal. Appearance: Alert. Oriented X3. No acute distress. She has nasal cannula oxygen in place. Head: Normal external exam. Normocephalic. Atraumatic. Eyes: PERRLA. EOMI. Conjunctiva and sclera normal. Eyelids normal. ENT: EAC normal. TM's Normal.Pharynx normal. Uvula midline. Moist mucous membranes. No lesions/ulcerations or masses noted on the tongue. Normal voice. No trismus noted. No drooling noted. No muffled voice noted. Neck: Normal inspection. Neck supple. FROM. No adenopathy. Thyroid Normal. No tracheal deviation noted. No crepitus is noted. No meningeal signs. No neck mass noted. No signs of trauma noted. CVS: Normal heart rate and rhythm. Heart sound normal. Pulses normal throughout. No murmurs/rales/gallops. Respiratory: No respiratory distress. Painless inspiration. Breath sounds normal. No wheezes/rales/rhonchi noted. Chest nontender. No crepitus is noted. No signs of trauma noted. No accessory muscle usage noted or decreased air movement noted. No signs of trauma. Abdomen: Soft and nontender. Bowel sounds normal in all 4 quadrants. No distention noted. No organomegaly noted. No visible injury noted. Back: No CVA tenderness. Full range of motion noted. Nontender. No signs of trauma. Patient neuro intact bilaterally and distally on all 4 extremities. Patient's reflexes intact bilaterally and distally on all 4 extremities. No rashes/lesion/induration/fluctuance or signs of infection noted. Skin: Skin warm and dry. Normal skin color. Normal skin turgor. No rashes/lesions/lacerations noted. Extremities: No lower extremity edema. No calf tenderness is noted. Extremities exhibit normal range of motion and nontender. Neuro: Oriented X 3. No motor deficit. No sensory deficit. Reflexes normal. Normal steady gait. No focal neuro deficits noted. CN's II-XII intact bilaterally? Vascular: + radial pulses/+ 2 distal pedal pulses/+2 dorsalis pedis b/l. Normal cap refill. No cyanosis noted to upper extremity nails and lower extremity toes nails. Course Course Course Narrative: I performed a stool occult at bedside and patient had brown light colored stool no blood and stool occult was negative at bedside I showed the patient. She reports that it was only a small amount of blood. She reports she actually came here because she is homeless and has nowhere to go. I explained to her that we cannot admit her or put her in observation if she does not have a medical reason and she was cleared last night. She reports that she was given resources for shelters although does not want to go to care home right away. I explained to her that if she does not want to go to a care home during the day she can hang out at the mall or outside due to it is 50 degrees today or she can hang all in our waiting room until she can find another place to go otherwise she denies any SI/HI/auditory visual hallucinations or thoughts of self-injury she is at baseline therefore she will be discharged and instructed to follow-up with her PCP and to go to the care home and to return if any new or worsening symptoms. Patient was pulse at bedside understand agree this plan. Medical Decision Making Lab Data Labs: I performed a stool occult at bedside negative Independent Historian Clinical information obtained from an independent historian. History obtained from or confirmed by: Spouse External Record Review I reviewed all the patient's inpatient/outpatient/labs/imaging and prior visits Discharge Plan Discharge Clinical Impression: Homeless Patient Disposition: Home, Self-Care Prescriptions: No Action albuterol sulfate 2.5 mg /3 mL (0.083 %) solution for nebulization 1 vial inhalation Q6H Rx Instructions: TAKE WITH IPROTROPIUM BROMIDE 0.02% cczbwmxyjm-ixjhhlgwzlgfd-pyky 50-325-40 mg tablet 2 tab PO Q12H PRN (Reason: Migraine Headache) Rx Instructions: not to exceed 6 tabs/24 hours ipratropium bromide 0.02 % solution 2.5 ml inhalation Q6H Rx Instructions: TAKE WITH ALBUTEROL 0.083% aspirin 81 mg Tablet,Delayed Release (Dr/Ec) 81 mg PO DAILY Qty: 30 0RF meclizine 25 mg tablet 1 tab PO TID PRN (Reason: dizziness) Atrovent HFA 17 mcg/actuation HFA aerosol inhaler 2 puff inhalation QID oxycodone 5 mg Tablet 5 mg PO Q4H PRN (Reason: Pain, Severe (Pain Scale 7-10)) Qty: 18 0RF Rx Instructions: Partial Fill upon patient request. diltiazem HCl 360 mg capsule,extended release 24 hr 1 cap PO DAILY lorazepam 2 mg tablet 1 tab PO Q6H PRN (Reason: anxiety) Referrals: Name,MD Mickey [Primary Care Provider] - 2 days
--- NOTE | 2022-04-26 09:47 | PC.NURSE ---
patient a&ox3, speaking in full sentences, no sob noted, pt very cantankerous with staff and provider repeating that she is homeless and has no place to go. vitals are stable, call campos within reach, will continue to monitor.
== END 2022-04-26 10:16 | disposition home or self-care (01) ==
PROVIDERS: Emergency Provider Emergency Medicine; PCP Internal Medicine Geriatric Medicine
DX: K92.1 Melena (principal); Z59.00 Homelessness unspecified; Z87.891 Personal history of nicotine dependence
CPT/HCPCS: 99282; 99283

== ENCOUNTER 2022-04-26 12:59 | Emergency (ER) | payer MEDICARE, SELFPAY ==
[2022-04-26 13:05] VITALS: BP 108/68; PULSE 88
--- NOTE | 2022-04-26 13:10 | ED.GENADULT ---
HPI - General Adult General Stated complaint: RM NOT READY @[facility],ON O2,NEEDS SAFE PLACE PER EMS Time Seen by Provider: 04/26/22 13:10 Source: patient and EMS Mode of arrival: EMS Limitations: no limitations History of Present Illness HPI narrative: This is a 66-year-old female who was just discharged from our facility presenting via ambulance because patient's hotel room was not ready when patient was dropped off by EMS. EMS did not feel safe discharging her with a hotel room that was not ready, patient states she would like to leave and she is just here because her room was not ready. She tells me will be ready around 2. Patient has no medical complaints. Related Data Home Medications Medication Instructions Recorded Confirmed albuterol sulfate 2.5 mg/3 mL 1 vial inhalation Q6H 10/04/20 04/26/22 (0.083 %) solution for nebulization essygaiuuk-mwkagxzxtckhi-gnxkgeyb 2 tab PO Q12H PRN Migraine Headache 10/04/20 04/26/22 50 mg-325 mg-40 mg tablet diltiazem HCl 360 mg capsule,24 1 cap PO DAILY 07/08/21 04/19/22 hr,extended release lorazepam 2 mg tablet 1 tab PO Q6H PRN anxiety 07/08/21 04/26/22 ipratropium bromide 0.02 % 2.5 ml inhalation Q6H 09/25/21 04/19/22 solution for inhalation ipratropium bromide 17 2 puff inhalation QID 04/19/22 04/26/22 mcg/actuation HFA aerosol inhaler (Atrovent HFA) meclizine 25 mg tablet 1 tab PO TID PRN dizziness 04/19/22 04/26/22 Previous Rx's Medication Instructions Recorded aspirin 81 mg tablet,delayed 81 mg PO DAILY #30 tabs 03/12/22 release oxycodone 5 mg tablet 5 mg PO Q4H PRN Pain, Severe (Pain 04/23/22 Scale 7-10) #18 tabs Allergies Allergy/AdvReac Type Severity Reaction Status Date / Time tramadol [TRAMADOL] Allergy Severe SWEATING, Verified 04/16/22 23:48 VOMITING, vomiting Sulfa (Sulfonamide Allergy Unknown Verified 04/16/22 23:48 Antibiotics) amoxicillin [From AUGMENTIN] AdvReac Severe CONSTIPATIO Verified 04/16/22 23:48 N clavulanic acid AdvReac Severe CONSTIPATIO Verified 04/16/22 23:48 [From AUGMENTIN] N codeine [CODEINE] AdvReac Severe NAUSEA Verified 04/16/22 23:48 levofloxacin [From LEVAQUIN] AdvReac Severe CONSTIPATIO Verified 04/16/22 23:48 N Review of Systems Review of Systems: Constitutional : No Weight loss, No Fever, No Chills, No Fatigue, No Malaise ENT/Mouth : No sore throat, No Rhinorrhea Eyes: No Eye Pain, No Swelling, No Redness Cardiovascular : No Chest Pain, No SOB, No Dyspnea on Exertion, No Orthopnea, No Edema, No Palpitations Respiratory : No Cough, No Sputum, No Wheezing Gastrointestinal : No Nausea, No Vomiting, No Diarrhea, No Constipation, No abdominal Pain, No Hematochezia, No Melena Genitourinary : No Dysuria, No Urinary Frequency, No Hematuria, Musculoskeletal : No joint pain, No Myalgias, No Joint Swelling Skin : No Skin Lesions, No rash Neuro : No Weakness, No Numbness, No Dizziness, No Headache Psych : No Anxiety/Panic, No Depression All other systems reviewed and are negative Yes all other systems are reviewed and are negative PMF[facility] Past Medical History Attestation statement: The following information was validated with the patient. Source: old records reviewed and nursing notes reviewed Medical History Acute and chronic respiratory failure with hypoxia Anxiety Asthma Bronchitis Chronic lung disease Chronic obstructive pulmonary disease with hypoxia Chronic respiratory failure Chronic respiratory failure with hypoxia Compression fracture of thoracic vertebra COPD (chronic obstructive pulmonary disease) Diverticulitis Dizziness Emphysema lung Hypertension Otitis media Pulmonary abscess Thyroid nodule Vertigo Surgical History History of breast surgery History of laparotomy Family History Family History Other No family history of coronary artery disease Social History Social History Household Members: Spouse Housing: Other Housing Other:: hotel Do you presently have visiting nurse or other home services: No Alcohol intake: current Alcohol intake frequency: holidays/special occasions only Alcohol type: beer Patient Tobacco Use Status: Former Tobacco user Tobacco use type: Cigarette Substance Use Type: Marijuana Advance Directives Date on File: 07/09/21 service: No Current occupational status: disabled Physical Exam ED Vital Signs: vss Appearance: Alert.? Oriented X3.? No acute distress.? Head: Normocephalic, atraumatic, no step-offs or deformities Eyes: Pupils equal, round and reactive to light.? Neck: Normal inspection.? Neck supple.? CVS: Normal heart rate and rhythm.? Pulses normal.? Respiratory: No respiratory distress.? Breath sounds normal.? Abdomen: Soft and nontender.? Skin: Skin warm and dry.? Normal skin color.? Normal skin turgor.? Extremities: No lower extremity edema.? No calf ttp. 5/5 strength to bilateral upper and lower extremities Neuro: Oriented X 3.? No motor deficit.? No sensory deficit. CN 2-12 intact Course Reevaluation(s) Reevaluation #1: Hospital staff found patient new were to go back to hotel room. Patient will be discharged. Educated patient on diagnosis and treatment plan, answered all question, patient verbalizes understanding. At this time patient will be discharged home, advised to return with new or worsening symptoms. Educated on worrisome signs and symptoms and when to return. At this time I feel comfortable discharge home. Time: 13:13 Medical Decision Making Medical Decision Making MDM Narrative: 66-year-old female presents via ambulance because her hotel room was not ready when EMS arrived, patient was just discharged from our facility. No medical complaints. Tells me she would like to leave and go to the hotel room. Physical exam benign Normal physical exam, no acute findings. No focal neuro deficits. Regular rate and rhythm. Lungs clear. Abdomen soft nontender nondistended Plan discharge back to hotel when ready. No need for medical workup as patient was just urine had full workup and was deemed medically cleared Differential Diagnosis Differential Diagnoses: The differential diagnosis associated with the presentation includes Normal physical exam, no acute findings. No focal neuro deficits. Regular rate and rhythm. Lungs clear. Abdomen soft nontender nondistended Admission/Observation Consideration of admission/observation: Escalation of care including admission/observation considered Not indicated Core Measures AMI core measures followed: Yes Measure exclusions: not indicated Critical Care Time Critical Care Time Critical Care Time: No Discharge Plan Discharge Clinical Impression: Normal physical exam Patient Disposition: Home, Self-Care Instructions: Normal Exam (ED) Additional Instructions: Take your medications as prescribed. If you were prescribed antibiotics today, it is important that you take your medication to their entirety, do not skip any doses, do not finish them early. Follow-up with your primary care provider this week. Return to the emergency department with new or worsening symptoms. Such as fevers, chills, chest pain, shortness of breath, nausea, vomiting, dizziness, headache, vision changes, lethargy In case of emergency call 911 Prescriptions: No Action albuterol sulfate 2.5 mg /3 mL (0.083 %) solution for nebulization 1 vial inhalation Q6H Rx Instructions: TAKE WITH IPROTROPIUM BROMIDE 0.02% gqmxdkmton-lwdlsqznynlkj-rplb 50-325-40 mg tablet 2 tab PO Q12H PRN (Reason: Migraine Headache) Rx Instructions: not to exceed 6 tabs/24 hours ipratropium bromide 0.02 % solution 2.5 ml inhalation Q6H Rx Instructions: TAKE WITH ALBUTEROL 0.083% aspirin 81 mg Tablet,Delayed Release (Dr/Ec) 81 mg PO DAILY Qty: 30 0RF meclizine 25 mg tablet 1 tab PO TID PRN (Reason: dizziness) Atrovent HFA 17 mcg/actuation HFA aerosol inhaler 2 puff inhalation QID oxycodone 5 mg Tablet 5 mg PO Q4H PRN (Reason: Pain, Severe (Pain Scale 7-10)) Qty: 18 0RF Rx Instructions: Partial Fill upon patient request. diltiazem HCl 360 mg capsule,extended release 24 hr 1 cap PO DAILY lorazepam 2 mg tablet 1 tab PO Q6H PRN (Reason: anxiety) Referrals: ED Physician,Generic [Emergency Provider] - 2 days
== END 2022-04-26 14:21 | disposition home or self-care (01) ==
PROVIDERS: Emergency Provider Emergency Medicine
DX: J44.9 Chronic obstructive pulmonary disease, unspecified (principal); Z99.81 Dependence on supplemental oxygen
CPT/HCPCS: 99282

== ENCOUNTER 2022-06-05 13:44 | Emergency (ER) | payer MEDICARE, MEDICAID, OTHER, SELFPAY ==
--- NOTE | ~2022-06-05 | XR_ITS ---
EXAMINATION: 1. RADIOGRAPHS CHEST 2. RADIOGRAPHS RIGHT HUMERUS CLINICAL INFORMATION: Shortness of breath. Pain. COMPARISON: Chest CT 04/25/2022, chest x-ray 04/21/2022 and radiographs of the right shoulder and right humerus 04/25/2022 TECHNIQUE: 2 views of the chest and 2 views of the right humerus were obtained. FINDINGS: Chest: Cardiac silhouette is normal in size. The lungs are well aerated. Similar suspected scarring of the right midlung. Subtle bibasilar opacities most suggestive of atelectasis. No pleural effusion. No pneumothorax. Mild degenerative changes of the spine. Right humerus: No acute fracture of the right humerus. Old fracture of the right humeral neck. No localized soft tissue swelling of the right upper extremity. No radiopaque foreign body. XR/XR humerus RT IMPRESSION: 1. Suspected bibasilar atelectasis. No acute pulmonary pathology. 2. No acute fracture of the right humerus.
--- NOTE | ~2022-06-05 | XR_ITS ---
EXAMINATION: 1. RADIOGRAPHS CHEST 2. RADIOGRAPHS RIGHT HUMERUS CLINICAL INFORMATION: Shortness of breath. Pain. COMPARISON: Chest CT 04/25/2022, chest x-ray 04/21/2022 and radiographs of the right shoulder and right humerus 04/25/2022 TECHNIQUE: 2 views of the chest and 2 views of the right humerus were obtained. FINDINGS: Chest: Cardiac silhouette is normal in size. The lungs are well aerated. Similar suspected scarring of the right midlung. Subtle bibasilar opacities most suggestive of atelectasis. No pleural effusion. No pneumothorax. Mild degenerative changes of the spine. Right humerus: No acute fracture of the right humerus. Old fracture of the right humeral neck. No localized soft tissue swelling of the right upper extremity. No radiopaque foreign body. XR/XR chest 2V IMPRESSION: 1. Suspected bibasilar atelectasis. No acute pulmonary pathology. 2. No acute fracture of the right humerus.
[2022-06-05 14:23] VITALS: BP 125/58; BP 137/50; PULSE 100; PULSE 90; RESP 18; TEMP 37.5; O2SAT 100; O2SAT 91; BMI 24.4
--- NOTE | 2022-06-05 14:30 | ECG_ITS ---
Test Reason : SOB Blood Pressure : / mmHG Vent. Rate : 087 BPM Atrial Rate : 087 BPM P-R Int : 144 ms QRS Dur : 076 ms QT Int : 374 ms P-R-T Axes : 075 035 067 degrees QTc Int : 450 ms Normal sinus rhythm Normal ECG When compared with ECG of 26-APR-2022 00:57, No significant change was found Referred By: April Paredes Electronically Signed By:PATEL WALSH MD
[2022-06-05 15:02] LABS: MANUAL DIFF FLAG NO
[2022-06-05 15:14] LABS: Basophils Percent Auto 0.5 % (0-2); Eosinophils Absolute Auto 0.1 X10*3/uL (0.0-0.4); Eosinophils Percent Auto 0.9 % (0-4); Hematocrit 35.6 % (37.0-47.0); Hemoglobin 10.7 g/dl (12.0-16.0); Imm Gran Abs Auto 0.01 X10*3/uL (0.00-0.03); Imm Gran Pct Auto 0.2 % (0.0-0.4); Lymphocytes Absolute Auto 1.2 X10*3/uL (1.2-4.9); Lymphocytes Percent Auto 20.9 % (20-40); Mean Corpuscular HGB Conc 30.1 g/dl (31.0-35.0); Mean Corpuscular Volume 89.7 fL (80.0-98.0); Mean Platelet Volume 10.1 fL (9.4-12.3); Monocytes Absolute Auto 0.6 X10*3/uL (0.1-1.2); Monocytes Percent Auto 10.1 % (2-11); Neutrophils Percent Auto 67.4 % (45-73); Platelet Count 264 X10*3/uL (160-400); Red Blood Count 3.97 X10*6/uL (4.20-5.50); Red Cell Distribution Width 15.6 % (11.0-16.0); White Blood Count 5.9 X10*3/uL (4.8-10.8)
[2022-06-05 15:26] LABS: COVID-19 Test Negative (Negative); IDNOW Serial# BCCEAD1C
[2022-06-05 15:28] LABS: Alanine Aminotransferase 12 U/L (0-31); Albumin Level 4.1 g/dL (3.5-5.0); Alkaline Phosphatase 71 U/L (39-117); Anion Gap 15 (12-20); Aspartate Amino Transferase 17 U/L (5-31); Bilirubin Total 0.2 mg/dL (0.0-1.0); Blood Urea Nitrogen 16 mg/dL (9-16); Calcium 9.7 mg/dL (8.4-10.2); Carbon Dioxide 31 mmol/L (22-29); Chloride 102 mmol/L (96-108); Creatinine Clr Calc Pharmacy 72.7; Estimated Glomerular Filt Rate > 60; Glucose Random 100 mg/dL (60-115); Magnesium 2.1 mg/dL (1.6-2.6); Potassium 4.3 mmol/L (3.3-5.1); Sodium 144 mmol/L (135-145)
--- NOTE | 2022-06-05 15:32 | ED_ITS ---
HPI - General Adult General Chief complaint: General Medical Stated complaint: sob Time Seen by Provider: 06/05/22 15:31 Source: patient and EMS Mode of arrival: EMS Limitations: no limitations History of Present Illness HPI narrative: Patient is a 67 year old assigned female at with a history of COPD on chronic oxygenation presenting to the emergency department today with right bicep pain and requesting placement in a rest facility. Patient states that the other day she bumped her right upper arm so she is having pain there and requesting to be placed in a rest type facility. Patient denies any dizziness, lightheadedness, abdominal pain, nausea, vomiting, fever, chills, blurry vision, double vision, loss of vision, chest pain, back pain, night sweats, pain with urination, increased urinary frequency, increased urinary urgency, blood in her urine or stool, syncope or a near syncopal episode, bowel incontinence, bladder incontinence, bowel retention, bladder retention, or any other complaints at th is time. Severity: mild Exacerbating factors: none Associated symptoms: denies other symptoms Treatments prior to arrival: none Related Data Home Medications Medication Instructions Recorded Confirmed albuterol sulfate 2.5 mg/3 mL 1 vial inhalation Q6H 10/04/20 04/26/22 (0.083 %) solution for nebulization dlzbttvflr-zatqdhqzfkgfo-ynlsugfr 2 tab PO Q12H PRN Migraine Headache 10/04/20 04/26/22 50 mg-325 mg-40 mg tablet diltiazem HCl 360 mg capsule,24 1 cap PO DAILY 07/08/21 04/19/22 hr,extended release lorazepam 2 mg tablet 1 tab PO Q6H PRN anxiety 07/08/21 04/26/22 ipratropium bromide 0.02 % 2.5 ml inhalation Q6H 09/25/21 04/19/22 solution for inhalation ipratropium bromide 17 2 puff inhalation QID 04/19/22 04/26/22 mcg/actuation HFA aerosol inhaler (Atrovent HFA) meclizine 25 mg tablet 1 tab PO TID PRN dizziness 04/19/22 04/26/22 Previous Rx's Medication Instructions Recorded aspirin 81 mg tablet,delayed 81 mg PO DAILY #30 tabs 03/12/22 release oxycodone 5 mg tablet 5 mg PO Q4H PRN Pain, Severe (Pain 03/18/23 Scale 7-10) #18 tabs Allergies Allergy/AdvReac Type Severity Reaction Status Date / Time tramadol [TRAMADOL] Allergy Severe SWEATING, Verified 04/16/22 23:48 VOMITING, vomiting Sulfa (Sulfonamide Allergy Unknown Verified 04/16/22 23:48 Antibiotics) amoxicillin [From AUGMENTIN] AdvReac Severe CONSTIPATIO Verified 04/16/22 23:48 N clavulanic acid AdvReac Severe CONSTIPATIO Verified 04/16/22 23:48 [From AUGMENTIN] N codeine [CODEINE] AdvReac Severe NAUSEA Verified 04/16/22 23:48 levofloxacin [From LEVAQUIN] AdvReac Severe CONSTIPATIO Verified 04/16/22 23:48 N Review of Systems Constitutional: Constitutional: Reports no additional constitutional co mplaints, Denies chills, Denies fever(s) and Denies night sweats Eyes: Eyes: Reports no additional eye complaints, Denies blurry vision, Denies change in vision, Denies diplopia, Denies eye discharge, Denies loss of vision and Denies eye pain ENT: Denies dizziness Cardiovascular: Cardiovascular: Reports no additional cardiovascular complaints, Denies chest pain, Denies lightheadedness, Denies Loss of Consciousness and Denies dyspnea Respiratory: Respiratory: Reports no additional respiratory complaints and Denies dyspnea Gastrointestinal: Gastrointestinal: Reports no additional gastrointestinal complaints, Denies abdominal pain, Denies melena, Denies hematochezia, Denies change in bowel habits and Denies change in stool character Genitourinary: Genitourinary: Denies hematuria, Denies urinary frequency, Denies dysuria, Denies urinary incontinence, Denies urinary hesitancy and Denies urinary urgency Musculoskeletal: Musculoskeletal: Reports no additional musculoskeletal complaints, Denies numbness and Denies tingling Comments: right upper arm pain Neurologic: Denies dizziness, Denies loss of vision, Denies numbness and Denies tingling Psychiatric: Psychiatric: Reports no additional psychiatric complaints Endocrine: Endocrine: Reports no additional endocrine complaints Hematologic/Lymphatic: Hematologic/Lymphatic: Reports no additional hematologic/lymphatic complaints Allergic/Immunologic: Allergic/Immunologic: Reports no additional allergic/immunologic complaints PMFSH Past Medical History Attestation statement: The following information was validated with the patient. Source: old records reviewed and nursing notes reviewed Medical History Acute and chronic respiratory failure with hypoxia Anxiety Asthma Bronchitis Chronic lung disease Chronic obstructive pulmonary disease with hypoxia Chronic respiratory failure Chronic respiratory failure with hypoxia Compression fracture of thoracic vertebra COPD (chronic obstructive pulmonary disease) Diverticulitis Dizziness Emphysema lung Hypertension Otitis media Pulmonary abscess Thyroid nodule Vertigo Surgical History History of breast surgery History of laparotomy Family History Family History Other No family history of coronary artery disease Social History Social History Household Members: Spouse Housing: Other Housing Other:: hotel Do you presently have visiting nurse or other home services: No Alcohol intake: current Alcohol intake frequency: holidays/special occasions only Alcohol type: beer Patient Tobacco Use Status: Former Tobacco user Tobacco use type: Cigarette Substance Use Type: Marijuana Advance Directives: Yes Advance Directives on File: Yes Advance Directives Date on File: 07/09/21 service: No Current occupational status: disabled Physical Exam ED Vital Signs: Vital Signs - 24 hr 06/05/22 14:23 Temperature 99.5 F Pulse Rate 100 Respiratory Rate 18 Blood Pressure 125/58 L Pulse Oximetry 91 L Oxygen Delivery Method Nasal Cannula BMI result Body Mass Index 24.4 Const General: cooperative, no acute distress, alert and awake Nutritional Appearance: well nourished Orientation/consciousness: patient oriented x3 Limitations: no limitations HENMT Head: Yes normal to inspection and Yes atraumatic Ears: hearing grossly normal bilaterally and external ears normal General nose exam: Normal external nose present, no nasal discharge noted and no epistaxis Face and sinus: Yes normal facial exam, No abrasion and No laceration Mouth: Normal oral and palatal mucosa present, no drooling and no muffled voice Eyes General: appearance normal, both eyes and all related structures Periorbital: periorbital findings normal Eyelids: Yes eyelids normal Conjunctivae: conjunctivae normal Pupils: Equal, round and reactive pupils present EOM: EOMs intact bilaterally Neck Neck: Yes normal visual inspection, Yes full ROM and Yes no lymphadenopathy Chest Chest palpation & inspection: normal inspection of the chest Resp Other: on oxygen via NC per baseline Effort & Inspection: normal respiratory effort and able to speak in complete sentences Cardio Rate: regular rate Rhythm: regular rhythm GI Inspection: Yes normal to inspection Neuro General: patient oriented x3 and moves all extremities Cranial nerves: Yes Equal, round and reactive pupils present Cognition (Neuro): normal cognition Motor exam (neuro): 5/5 motor strength present throughout Sensory Exam: Normal double simultaneous stimulation for sensation Coordination: rlczrb-ra-twhw test normal Extrem General: Yes normal to inspection, Yes full ROM and Yes capillary refill normal Psych Appearance: grossly normal Mental Status: mental status grossly normal Affect: normal affect Attitude: cooperative Thought process: Normal thought process present Thought content: Normal thought content present Insight: Good insight present (Psych) Medical Decision Making Medical Decision Making [facility] Narrative: Patient is a 67 year old assigned female at with a history of COPD on chronic oxygenation presenting to the emergency department today with right upper arm pain and requesting rest home placement. Patient's physical exam was unremarkable. Patient's blood work was unremarkable. Patient's EKG was unremarkable. Patient's chest and right humerus x-ray showed no acute process. I explained my physical exam findings as well as all test results to the patient. I answered all questions asked by the patient. Patient to be evaluated by physical therapy and case management to follow up on placement. Patient verbalized agreement and understanding with this treatment plan and possible placement. . Differential Diagnosis Differential Diagnoses: The differential diagnosis associated with the presentation includes chronic oxygenation Lab Data [facility] Lab Attestation statement: I reviewed the patient's lab results. 06/05/22 14:58 06/05/22 14:58 Labs: Lab Results 06/05/22 06/05/22 06/05/22 Range/Units 14:58 14:58 14:58 WBC 5.9 (4.8-10.8) X10*3/uL RBC 3.97 L (4.20-5.50) X10*6/uL Hgb 10.7 L (12.0-16.0) g/dl Hct 35.6 L (37.0-47.0) % MCV 89.7 (80.0-98.0) fL MCH 27.0 (27.0-33.0) pg MCHC 30.1 L (31.0-35.0) g/dl RDW 15.6 (11.0-16.0) % Plt Count 264 (160-400) X10*3/uL MPV 10.1 (9.4-12.3) fL Immature Gran % (Auto) 0.2 (0.0-0.4) % Neut % (Auto) 67.4 (45-73) % Lymph % (Auto) 20.9 (20-40) % [place] % (Auto) 10.1 (2-11) % Eos % (Auto) 0.9 (0-4) % Baso % (Auto) 0.5 (0-2) % Lymph # (Auto) 1.2 (1.2-4.9) X10*3/uL [place] # (Auto) 0.6 (0.1-1.2) X10*3/uL Eos # (Auto) 0.1 (0.0-0.4) X10*3/uL Baso # (Auto) 0.0 (0.0-0.2) X10*3/uL Abs Immat Gran (auto) 0.01 (0.00-0.03) X10*3/uL Absolute Neuts (auto) 4.0 (2.0-8.3) x10*3/uL Absolute Nucleated RBC 0.000 (0.0-0.012) X10*3/uL Nucleated RBC % (auto) 0.0 (0.0-0.2) /100WBC Sodium 144 (135-145) mmol/L Potassium 4.3 (3.3-5.1) mmol/L Chloride 102 (96-108) mmol/L Carbon Dioxide 31 H (22-29) mmol/L Anion Gap 15 (12-20) BUN 16 (9-16) mg/dL Creatinine 0.55 (0.5-1.4) mg/dL Estim Creat Clear Calc 72.7 Estimated GFR > 60 Random Glucose 100 (60-115) mg/dL Calcium 9.7 D (8.4-10.2) mg/dL Magnesium 2.1 (1.6-2.6) mg/dL Total Bilirubin 0.2 (0.0-1.0) mg/dL AST 17 (5-31) U/L ALT 12 (0-31) U/L Alkaline Phosphatase 71 (39-117) U/L Troponin I High Sens < 2.7 (<3.5-17.0) ng/L Total Protein 7.0 (6.5-8.0) g/dL Albumin 4.1 (3.5-5.0) g/dL COVID-19 (SEAN) (Negative) COVID-19 Clin Com 06/05/22 Range/Units 14:58 WBC (4.8-10.8) X10*3/uL RBC (4.20-5.50) X10*6/uL Hgb (12.0-16.0) g/dl Hct (37.0-47.0) % MCV (80.0-98.0) fL MCH (27.0-33.0) pg MCHC (31.0-35.0) g/dl RDW (11.0-16.0) % Plt Count (160-400) X10*3/uL MPV (9.4-12.3) fL Immature Gran % (Auto) (0.0-0.4) % Neut % (Auto) (45-73) % Lymph % (Auto) (20-40) % [place] % (Auto) (2-11) % Eos % (Auto) (0-4) % Baso % (Auto) (0-2) % Lymph # (Auto) (1.2-4.9) X10*3/uL [place] # (Auto) (0.1-1.2) X10*3/uL Eos # (Auto) (0.0-0.4) X10*3/uL Baso # (Auto) (0.0-0.2) X10*3/uL Abs Immat Gran (auto) (0.00-0.03) X10*3/uL Absolute Neuts (auto) (2.0-8.3) x10*3/uL Absolute Nucleated RBC (0.0-0.012) X10*3/uL Nucleated RBC % (auto) (0.0-0.2) /100WBC Sodium (135-145) mmol/L Potassium (3.3-5.1) mmol/L Chloride (96-108) mmol/L Carbon Dioxide (22-29) mmol/L Anion Gap (12-20) BUN (9-16) mg/dL Creatinine (0.5-1.4) mg/dL Estim Creat Clear Calc Estimated GFR Random Glucose (60-115) mg/dL Calcium (8.4-10.2) mg/dL Magnesium (1.6-2.6) mg/dL Total Bilirubin (0.0-1.0) mg/dL AST (5-31) U/L ALT (0-31) U/L Alkaline Phosphatase (39-117) U/L Troponin I High Sens (<3.5-17.0) ng/L Total Protein (6.5-8.0) g/dL Albumin (3.5-5.0) g/dL COVID-19 (SEAN) Negative (Negative) COVID-19 Clin Com See Note Independent Interpretation I performed an independent interpretation of an: EKG Interpretation: Vent. Rate: 087 BPM ? ? Atrial Rate: 087 BPM P-R Int: 144 ms? QRS Dur: 076 ms QT Int: 374 ms ? ? ? P-R-T Axes: 075 035 067 degrees QTc Int: 450 ms ? Normal sinus rhythm Normal ECG When compared with ECG of 26-APR-2022 00:57, No significant change was found DD/ 1435 Radiology Impression Radiologist Impression: My interpretation is in agreement with the radiologist's impression of these imaging studies. --- EXAMINATION: 1.? RADIOGRAPHS CHEST 2.? RADIOGRAPHS RIGHT HUMERUS CLINICAL INFORMATION: Shortness of breath. Pain.? COMPARISON: Chest CT 04/25/2022, chest x-ray 04/21/2022 and radiographs of the right shoulder and right humerus 04/25/2022? TECHNIQUE: 2 views of the chest and 2 views of the right humerus were obtained.? FINDINGS: Chest: Cardiac silhouette is normal in size. The lungs are well aerated. Similar suspected scarring of the right midlung. Subtle bibasilar opacities most suggestive of atelectasis. No pleural effusion. No pneumothorax. Mild degenerative changes of the spine. Right humerus: No acute fracture of the right humerus. Old fracture of the right humeral neck. No localized soft tissue swelling of the right upper extremity. No radiopaque foreign body.? XR/XR humerus RT IMPRESSION: 1.? Suspected bibasilar atelectasis. No acute pulmonary pathology. 2.? No acute fracture of the right humerus. ? Dictated By: Nabil Tompkins MD Signed By: Electronically signed by Nabil Tompkins MD 06/05/22 1600 Independent Historian Clinical information obtained from an independent historian. History obtained from or confirmed by: EMS Discharge Plan Discharge Clinical Impression: Chronic respiratory failure with hypoxia, on home O2 therapy Patient Disposition: Still a Patient Prescriptions: No Action albuterol sulfate 2.5 mg /3 mL (0.083 %) solution for nebulization 1 vial inhalation Q6H Rx Instructions: TAKE WITH IPROTROPIUM BROMIDE 0.02% ejztbnnrzq-dfnrgzgmqnsuw-xzjn 50-325-40 mg tablet 2 tab PO Q12H PRN (Reason: Migraine Headache) Rx Instructions: not to exceed 6 tabs/24 hours ipratropium bromide 0.02 % solution 2.5 ml inhalation Q6H Rx Instructions: TAKE WITH ALBUTEROL 0.083% aspirin 81 mg Tablet,Delayed Release (Dr/Ec) 81 mg PO DAILY Qty: 30 0RF meclizine 25 mg tablet 1 tab PO TID PRN (Reason: dizziness) Atrovent HFA 17 mcg/actuation HFA aerosol inhaler 2 puff inhalation QID oxycodone 5 mg Tablet 5 mg PO Q4H PRN (Reason: Pain, Severe (Pain Scale 7-10)) Qty: 18 0RF Rx Instructions: Partial Fill upon patient request. diltiazem HCl 360 mg capsule,extended release 24 hr 1 cap PO DAILY lorazepam 2 mg tablet 1 tab PO Q6H PRN (Reason: anxiety)
[2022-06-05 15:36] LABS: Troponin-I High Sensitivity < 2.7 ng/L (<3.5-17.0)
[2022-06-05 16:27] LABS: VBG HCO3 39 mmol/L (22-26); VBG pCO2 61 mmHg; VBG pH 7.41 (7.32-7.43); VBG pO2 68 mmHg
--- NOTE | 2022-06-05 16:28 | PHA.MEDREC ---
Pharmacy Consult ? Medication Reconciliation Pharmacy has completed the medication reconciliation. spoke with patient and confirmed medications through claim history. She said she has not had any breathing treatments for a couple of days because she has no place to stay and needs a mask.
[2022-06-05 16:30] LABS: Venous Blood Gas Refer to POC result
[2022-06-05 17:52] VITALS: BP 138/60; PULSE 89; RESP 16; O2SAT 98
[2022-06-05] MEDS: Butalb/Acetamin/Caff 50/325/40 TABLET 2 TAB PO (18:14)
[2022-06-05] MEDS: Ipratropium Bromide 0.5 MG/2.5 ML SOLUTION INHALE (19:22)
[2022-06-05] MEDS: Albuterol Sulfate (0.083%) 2.5 MG/3 ML VIAL.NEB INHALE ×2 (19:22→23:53)
--- NOTE | 2022-06-05 19:43 | PC.NURSE ---
REPORT GIVEN TO RN IN OVERFLOW
[2022-06-05 20:45] VITALS: PULSE 89; RESP 16; O2SAT 95
[2022-06-05] MEDS: LORazepam 1 MG TABLET 2 MG PO (22:42)
[2022-06-05 23:56] VITALS: PULSE 89; RESP 16; O2SAT 95
[2022-06-06 04:00] VITALS: BP 131/58; PULSE 88; RESP 20; TEMP 36.8; O2SAT 96
[2022-06-06] MEDS: LORazepam 1 MG TABLET 2 MG PO ×3 (08:22→20:43)
[2022-06-06] MEDS: Aspirin Enteric Coated 81 MG TABLET.DR PO (08:23)
[2022-06-06] MEDS: dilTIAZem HCL CD 180 MG CAP.ER.24H 360 MG PO (08:23)
[2022-06-06] MEDS: Butalb/Acetamin/Caff 50/325/40 TABLET 2 TAB PO ×2 (08:23→20:43)
[2022-06-06 08:32] VITALS: BP 133/62; PULSE 96; RESP 20; O2SAT 96
[2022-06-06] MEDS: Albuterol Sulfate (0.083%) 2.5 MG/3 ML VIAL.NEB INHALE ×2 (11:40→18:52)
[2022-06-06] MEDS: Ipratropium Bromide 1 PUFF/17 MCG INHALER 2 PUFF INHALE ×2 (11:41→15:31)
--- NOTE | 2022-06-06 12:42 | MHC.CM.ED ---
Received case management consult over the weekend. Patient is well known to . Patient and have been homeless since 2017. They have been moving from motel to motel. Patient requires oxygen at baseline. 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 Per Lewis RT, patient is active with [facility] for oxygen. Physical therapy eval is pending. Patient is active with [facility]. Anticipate short term rehab will be needed. Referral broadcasted within 50 miles of [place] at this time. Continue to monitor for d/c needs.
[2022-06-06 14:13] VITALS: BP 133/62; PULSE 96; O2SAT 96
--- NOTE | 2022-06-06 14:49 | PC.RT ---
Spoke with Jeffrey anderson today. Pt was suppose to go to a intermediate but she denied the intermediate. Therefore her oxygen set up was never delivered as pt did not have an address. Once she has a place to go with an address, then Jeffrey will deliver.
--- NOTE | 2022-06-06 16:00 | MHC.EDTECH ---
Brought patient a pitcher of joselo with ice.
--- NOTE | 2022-06-06 16:01 | MHC.EDTECH ---
Emptied patients commode. Set patient with cup and wipes for a clean catch specimen collection.
[2022-06-06 18:44] VITALS: BP 133/69; PULSE 75; RESP 20; TEMP 36.9; O2SAT 100
--- NOTE | 2022-06-06 18:44 | PC.NURSE ---
Pt speaking to on phone. Ate 100% of breakfast, lunch and dinner. calm and cooperative throughout day. Requesting neb, respiratory stating OK for RN to give neb
[2022-06-06 19:40] LABS: Appearance Urine Clear; Color Urine Yellow; Glucose Urine UA Negative (Negative); Leukocyte Esterase Urine Negative (Negative); Nitrite Urine Negative (Negative); PH 5.5 (5.0-9.0); Urine Blood Negative (Negative); Urine Ketones Negative (Negative); Urine Protein Negative (Neg-Trace)
[2022-06-06 20:00] VITALS: BP 128/56; PULSE 80; RESP 16; TEMP 36.5; O2SAT 99
--- NOTE | 2022-06-06 21:13 | MHC.CM.ED ---
CM met with patient. Pt is well know to CM. Pt is homeless. , Marcelino is her HCP. HCP on file. [facility] x2. Tiffanie was recently admitted [place] [facility] and states she spent the last 2 nights in a motel, but has no more money and is homeless. Pt is oxygen dependent. Pt states her has been living at the [facility] in [place]. Pt states she has been unable to stay there with him, as she cannot do the work required to live there. Pt states she only gets $550/month Social Security and cannot afford an apartment or motel for the month. Pt states she will get her check on June 08. Pt tells CM she left her wheelchair and fan at [facility]. PT is recommending STR. Pt agreeable to referrals. [facility] and [address] [place] [address] interested. D/C plan: STR pending bed offer. Will need transport. CM will follow for discharge planning.
[2022-06-06 22:00] VITALS: BP 124/58; PULSE 74; RESP 16; TEMP 36.7; O2SAT 99
--- NOTE | 2022-06-06 22:06 | MHC.EDTECH ---
Brought patient a pitcher of ice water.
[2022-06-07] VITALS (7 sets, daily range): BP systolic 148–156; BP diastolic 56–57; PULSE 74–100; RESP 16–18; TEMP 36.3–36.6; O2SAT 96–99
[2022-06-07] MEDS: Albuterol Sulfate (0.083%) 2.5 MG/3 ML VIAL.NEB INHALE ×4 (05:28→21:05)
[2022-06-07] MEDS: LORazepam 1 MG TABLET 2 MG PO ×3 (05:49→21:27)
[2022-06-07] MEDS: Aspirin Enteric Coated 81 MG TABLET.DR PO (07:39)
[2022-06-07] MEDS: dilTIAZem HCL CD 180 MG CAP.ER.24H 360 MG PO (07:39)
[2022-06-07] MEDS: Ipratropium Bromide 1 PUFF/17 MCG INHALER 2 PUFF INHALE ×3 (08:23→16:23)
--- NOTE | 2022-06-07 09:13 | MHC.CM.ED ---
Patient remains in ER overflow. Received telephone call from Elisabet at [facility] [place]. They are concerned patient will become LTC with no payor source. [facility] financial counselors have been asked to see patient to complete a [employer] application. [facility] would feel more comfortable if patient also had [employer]. Continue to monitor for d/c needs.
--- NOTE | 2022-06-07 09:30 | PC.NURSE ---
patient sleeping. respirations are equal and unlabored. no signs of distress noted. call campos within reach. will CTM
[2022-06-07] MEDS: Butalb/Acetamin/Caff 50/325/40 TABLET 2 TAB PO ×2 (10:49→21:24)
--- NOTE | 2022-06-07 11:34 | PC.NURSE ---
RT at the bedside giving treatment
[2022-06-08] VITALS (8 sets, daily range): BP systolic 118–152; BP diastolic 57–73; PULSE 71–96; RESP 14–18; TEMP 36.2–36.7; O2SAT 96–100
[2022-06-08] MEDS: LORazepam 1 MG TABLET 2 MG PO ×3 (04:52→21:10)
--- NOTE | 2022-06-08 06:02 | PC.NURSE ---
pt assessed during the shift, awake most shift due to migraine headache, medicated w/o good relief
[2022-06-08] MEDS: Ipratropium Bromide 1 PUFF/17 MCG INHALER 2 PUFF INHALE (08:33)
[2022-06-08] MEDS: Butalb/Acetamin/Caff 50/325/40 TABLET 2 TAB PO ×2 (09:18→21:10)
[2022-06-08] MEDS: Aspirin Enteric Coated 81 MG TABLET.DR PO (09:18)
[2022-06-08] MEDS: dilTIAZem HCL CD 180 MG CAP.ER.24H 360 MG PO (09:18)
--- NOTE | 2022-06-08 10:18 | MHC.CM.ED ---
Addendum entered by Chelsie Nash 06/08/22 14:11: [facility] is able to offer a bed. CM met with patient. Patient accepts bed. [facility] is in the process of obtaining insurance auth. Addendum entered by Chelsie Nash 06/08/22 12:11: LTC [employer] application completed by Preethi and sent to . Copy provided to . CM provided copy to [facility]. Original Note: Patient remains in ER overflow. [employer] application was forwarded to [facility]. Per their business office, Health safety net application was completed, not a senior care care application. Business office also requesting copies of bank statements. Preethi from [facility] financial counseling made aware and will complete a LTC application with her. Patient's SSI is deposited into her [employer] Direct Express Debit Card. She never set up online banking. She essentially spends all of her money before the end of the month. [facility] made aware. Continue to monitor for d/c needs.
[2022-06-08] MEDS: Albuterol Sulfate (0.083%) 2.5 MG/3 ML VIAL.NEB INHALE (11:29)
[2022-06-08] MEDS: Albuterol/Iprat 2.5/0.5MG 3 ML AMPUL.NEB INHALE ×2 (14:52→21:34)
[2022-06-08] MEDS: Meclizine HCl 25 MG TABLET PO (15:54)
[2022-06-09 06:00] VITALS: BP 100/47; PULSE 71; RESP 16; TEMP 37.2; O2SAT 96
[2022-06-09] MEDS: dilTIAZem HCL CD 180 MG CAP.ER.24H 360 MG PO (08:16)
[2022-06-09] MEDS: Aspirin Enteric Coated 81 MG TABLET.DR PO (08:16)
[2022-06-09] MEDS: Albuterol/Iprat 2.5/0.5MG 3 ML AMPUL.NEB INHALE ×3 (08:37→17:29)
[2022-06-09 08:39] VITALS: PULSE 78; RESP 18; O2SAT 91
--- NOTE | 2022-06-09 08:59 | PC.NURSE ---
pt is aox3 speaking in full clear sentences. pt aware of plan of care and denied having any questions. rt at bedside for treatment. medicated per emar
[2022-06-09] MEDS: LORazepam 1 MG TABLET 2 MG PO ×3 (09:19→23:01)
[2022-06-09] MEDS: Butalb/Acetamin/Caff 50/325/40 TABLET 2 TAB PO ×2 (09:19→21:02)
--- NOTE | 2022-06-09 09:24 | PC.NURSE ---
pt requesting prn ativan and fiorcet for 10 headache
[2022-06-09 12:28] VITALS: PULSE 73; RESP 20; O2SAT 96
[2022-06-09 14:13] VITALS: BP 137/59; PULSE 100; RESP 15; TEMP 36.9; O2SAT 95
[2022-06-09 17:29] VITALS: PULSE 93; RESP 20; O2SAT 95
--- NOTE | 2022-06-09 18:16 | PC.NURSE ---
this nurse called several local pharmacies to obtain Advair 250/50 BID, unable to determine when she last had this refilled. PA Anibal aware and will not prescribe this as no wheezing noted; lungs were clear but diminished throughout. resp called and a breathing treatment done and resp said she always does this with her breathing and she has a psyc component.
[2022-06-09 22:21] VITALS: BP 123/60; PULSE 80; RESP 20; TEMP 36.6; O2SAT 100
[2022-06-10 06:00] VITALS: BP 112/55; PULSE 70; RESP 16; TEMP 36.1; O2SAT 100
[2022-06-10] MEDS: dilTIAZem HCL CD 180 MG CAP.ER.24H 360 MG PO (07:30)
[2022-06-10] MEDS: Aspirin Enteric Coated 81 MG TABLET.DR PO (07:30)
--- NOTE | 2022-06-10 07:33 | PC.NURSE ---
pt refused to get cleaned up at this time wants to eat breakfast in room
[2022-06-10 08:36] VITALS: PULSE 72; RESP 16; O2SAT 99
[2022-06-10] MEDS: Albuterol/Iprat 2.5/0.5MG 3 ML AMPUL.NEB INHALE (08:36)
[2022-06-10] MEDS: LORazepam 1 MG TABLET 2 MG PO (09:13)
[2022-06-10] MEDS: Butalb/Acetamin/Caff 50/325/40 TABLET 2 TAB PO (09:15)
--- NOTE | 2022-06-10 09:59 | MHC.CM.ED ---
Patient remains in ER overflow. Insurance auth has been obtained for [facility]. Corey CUEVAS booked for 1030am. Med [facility] with chart. Patient, Molly SAGASTUME and April OCHOA aware. Continue to monitor for d/c needs.
== END 2022-06-10 11:27 | disposition skilled nursing facility (03) ==
PROVIDERS: Physician Assistant Medical; Emergency Provider Emergency Medicine; PCP Internal Medicine Geriatric Medicine
DX: J96.11 Chronic respiratory failure with hypoxia (principal); R07.9 Chest pain, unspecified; R26.81 Unsteadiness on feet; M79.601 Pain in right arm; Z99.81 Dependence on supplemental oxygen; Z20.822 Contact with and (suspected) exposure to COVID-19; Z20.828 Contact with and (suspected) exposure to other viral communicable diseases; Z79.899 Other long term (current) drug therapy
CPT/HCPCS: 36415; 71046; 73060; 80053; 81003; 82803; 83735; 84484; 85025; 87635; 93005; 94640; 97162; 99285